=== PATIENT | female | born 1940 | race Caucasian/White ===

== ENCOUNTER 2019-09-03 15:15 | Observation (INO) | payer OTHER ==
[2019-09-03 16:16] LABS: Absolute Lymphocytes (CBC) 2.4 K/uL (0.7-4.9); Basophils % 1.1 % (0-1.3); Hematocrit 37.8 % (36.0-45.0); Lymphocytes % 31.8 % (15.3-44.8); MPV 10.1 fL (7.6-11.3); RBC Red Blood Cell Count 4.12 M/uL (3.86-4.86)
--- NOTE | 2019-09-03 16:20 | RAD REPORT ---
EXAM DESCRIPTION: RAD - Chest Single View - 09/03/2019 4:14 pm CLINICAL HISTORY: CHEST PAIN Chest pain. COMPARISON: Chest Pa And Lat (2 Views) dated 05/07/2017; Chest Single View dated 05/25/2016; Chest Pa And Lat (2 Views) dated 05/16/2016; Chest Single View dated 04/13/2016 FINDINGS: Portable technique limits examination quality. The lungs are emphysematous but grossly clear. The heart is normal in size. No displaced fractures. IMPRESSION: Mild COPD.
[2019-09-03 16:49] LABS: ALT/SGPT 16 U/L (12-78); AST/SGOT 13 U/L (15-37); Albumin 3.1 g/dL (3.4-5.0); Alkaline Phosphatase 115 U/L (45-117); BUN Blood Urea Nitrogen 32 mg/dL (7-18); Bicarbonate 24 mmol/L (21-32); Bilirubin Direct < 0.1 mg/dL (0-0.2); Bilirubin Total 0.4 mg/dL (0.2-1.0); Glucose Level 303 mg/dL (74-106); NT PRO-BNP 1443 pg/mL (<450); Potassium 4.4 mmol/L (3.5-5.1); Protein, Total 7.5 g/dL (6.4-8.2); Sodium Level 136 mmol/L (136-145); Troponin (Emerg Dept Use Only) < 0.02 ng/mL (0.0-0.045)
[2019-09-03 16:51] LABS: Magnesium 1.2 mg/dL (1.8-2.4)
[2019-09-03] MEDS ORDERED: Magnesium Sulfate 2gm IVPB 2 G/50 ML BAG IV ONE (16:59)
[2019-09-03] MEDS ORDERED: NA CHLORIDE 0.9% 500 ML ONE (17:00)
--- NOTE | 2019-09-03 17:11 | ER ---
Nurse's Notes [facility] Name: Carlita Villalobos Age: 78 yrs Sex: Female : 1940 Arrival Date: 09/03/2019 Time: 15:17 Bed 7 Private MD: BILL ARCE Diagnosis: Chest pain, unspecified;Hypomagnesemia;Dehydration Presentation: 09/03 15:20 Presenting complaint: Upper back pain x 1 week, intermittent substernal chest pain that hb began at 0230 today. Denies SOB/cough. Hx of AFib, DM2, hypertension. Transition of care: patient was not received from another setting of care. Onset of symptoms was September 03, 2019. Risk Assessment: Do you want to hurt yourself or someone else? Patient reports no desire to harm self or others. Care prior to arrival: None. 15:20 Method Of Arrival: Ambulatory hb 15:20 Acuity: PARESH 3 hb 16:00 Initial Sepsis Screen: Does the patient meet any 2 criteria? No. Patient's initial jl7 sepsis screen is negative. Does the patient have a suspected source of infection? No. Patient's initial sepsis screen is negative. Historical: - Allergies: 15:22 Sulfa (Sulfonamide Antibiotics); hb - Home Meds: 15:22 Levemir 100 unit/mL subcutaneous soln [Active]; levothyroxine 75 mcg tab once daily hb [Active]; metformin 1,000 mg Oral tab 2 times per day [Active]; metoprolol tartrate 50 mg Oral tab [Active]; - PMHx: 15:22 Atrial Fib; Diabetes - IDDM; Hypertension; Hypothyroidism; hb - PSHx: 15:22 Bladder suspension; Hysterectomy; fibroid tumors benign to arm; Tonsillectomy; nodule hb removed from thyroid; - Immunization history:: Adult Immunizations up to date. - Social history:: Smoking status: Patient/guardian denies using tobacco. - Ebola Screening: : No symptoms or risks identified at this time. Screenin:54 Abuse screen: Denies threats or abuse. Denies injuries from another. Nutritional jl7 screening: No deficits noted. Tuberculosis screening: No symptoms or risk factors identified. Fall Risk IV access (20 points). Total Reddy Fall Scale indicates No Risk (0-24 pts). Assessment: 15:30 Reassessment: Cardiac workup ordered per Dr. Sal. jl7 15:35 General: Appears in no apparent distress. uncomfortable, Behavior is calm, cooperative, jl7 appropriate for age. Pain: Complains of pain in mid-sternal area Pain does not radiate. Pain currently is 0 out of 10 on a pain scale. at worst was 8 out of 10 on a pain scale. Quality of pain is described as pressure, Pain began 0230 Is intermittent. Neuro: Level of Consciousness is awake, alert, obeys commands, Oriented to person, place, time, situation. Cardiovascular: Heart tones S1 S2 present Patient's skin is warm and dry. Respiratory: Airway is patent Respiratory effort is even, unlabored, Respiratory pattern is regular, symmetrical, Breath sounds are clear bilaterally. Denies shortness of breath. GI: Patient currently denies nausea. : No signs and/or symptoms were reported regarding the genitourinary system. EENT: No signs and/or symptoms were reported regarding the EENT system. Derm: Skin is pink, warm \T\ dry. Musculoskeletal: No signs and/or symptoms reported regarding the musculoskeletal system. 16:30 Reassessment: Patient appears in no apparent distress at this time. No changes from 7 previously documented assessment. Patient and/or family updated on plan of care and expected duration. Pain level reassessed. Patient is alert, oriented x 3, equal unlabored respirations, skin warm/dry/pink. 17:30 Reassessment: Patient appears in no apparent distress at this time. No changes from 7 previously documented assessment. Patient and/or family updated on plan of care and expected duration. Pain level reassessed. Patient is alert, oriented x 3, equal unlabored respirations, skin warm/dry/pink. 18:38 Reassessment: BP 196/77, HR 63, O2 96%, Dr. Pickard aware, VO for 25 mg Metoprolol PO. jl7 Vital Signs: 15:22 BP 163 / 78; Pulse 70; Resp 16; Temp 98.2; Pulse Ox 95% on R/A; Weight 58.97 kg; Height hb 5 ft. 4 in. (162.56 cm); Pain 7/10; 16:49 BP 150 / 74; Pulse 64; Resp 14; Temp 98.3(TE); Pulse Ox 95% on R/A; mh5 17:51 BP 172 / 84; Pulse 64; Resp 13; Temp 97.8(TE); Pulse Ox 98% on R/A; mh5 18:36 BP 196 / 77; Pulse 63; Resp 16 S; Pulse Ox 96% on R/A; jl7 19:20 BP 180 / 76; Pulse 70; Resp 20; Pulse Ox 96% on R/A; tl1 15:22 Body Mass Index 22.31 (58.97 kg, 162.56 cm) hb ED Course: 15:17 Patient arrived in ED. ag5 15:17 BILL ARCE is Private Physician. ag5 15:21 Triage completed. hb 15:22 Arm band placed on. hb 15:24 Sarah Treadwell, RN is Primary Nurse. jl7 15:30 Patient has correct armband on for positive identification. Placed in gown. Bed in low jl7 position. Call light in reach. Side rails up X 1. alarm security or surveillance monitor on. Pulse ox on. NIBP on. Warm blanket given. 15:33 Abhi Petersen PA is PHCP. [facility] 15:33 Josr Sal MD is Attending Physician. [facility] 15:48 EKG done, by gastroenterology technician. reviewed by Abhi SALGUERO. 3 15:50 Initial lab(s) drawn, by az, sent to lab. Inserted saline lock: 20 gauge in right jl7 forearm, using aseptic technique. Blood collected. Patient maintains SpO2 saturation greater than 95% on room air. 16:15 XRAY Chest (1 view) In Process Unspecified. EDMS 16:50 Notified Nurse Practitioner and/or Physician Finance Executive of a critical lab result(s), mg ss 1.2. 17:10 Pancho Pickard DO is Hospitalizing Provider. [facility] 18:29 No provider procedures requiring assistance completed. Patient admitted, IV remains in jl7 place. intact, No redness/swelling at site. Administered Medications: 17:00 Drug: NS 0.9% 500 ml Route: IV; Rate: bolus; Site: right forearm; jl7 17:45 Follow up: Response: No adverse reaction; IV Status: Completed infusion; IV Intake: jl7 500ml 17:05 Drug: Magnesium Sulfate 2 grams Route: IVPB; Infused Over: 2 hrs; Site: right forearm; jl7 18:45 Follow up: IV Status: Completed infusion; IV Intake: 50ml 1 18:01 Drug: Aspirin Chewable Tablet 324 mg Route: PO; jl7 18:28 Follow up: Response: No adverse reaction jl7 Intake: 17:45 IV: 500ml; Total: 500ml. jl7 18:45 IV: 50ml; Total: 550ml. 1 Outcome: 17:11 Decision to Hospitalize by Provider. yudith 19:57 Admitted to Tele accompanied by tech, via wheelchair, with chart, Report called to tl1 Danielle BECK 19:57 Condition: stable 19:57 Instructed on the need for admit. 20:26 Patient left the ED. [facility] Signatures: Dispatcher [employer] EDMS Abhi Petersen PA PA jmm Smirch, Shelby, RN RN Lakshmi Del Valle RN RN tl1 Mabel Alvarado RN RN hb Martinez, Maria [facility] Sarah Treadwell RN RN jl7 Batsheva Alba [facility] Sadi Guerrero [facility]
--- NOTE | 2019-09-03 17:11 | EDPHYS ---
Physician Documentation [facility] Name: Carlita Villalobos Age: 78 yrs Sex: Female : 1940 Arrival Date: 09/03/2019 Time: 15:17 Bed 7 Private MD: BILL ARCE ED Physician Josr Sal HPI: 09/03 15:35 This 78 yrs old Female presents to ER via Ambulatory with complaints of Chest jm Pain. 15:35 The patient or guardian reports chest pain that is located primarily in the substernal [facility] area. Onset: gradually, at 02:30. The pain does not radiate. Associated signs and symptoms: Pertinent negatives: abdominal pain, cough, lower extremity swelling, shortness of breath. The chest pain is described as a pressure. Modifying factors: The symptoms are alleviated by nothing. the symptoms are aggravated by nothing. This is a 78 year old female with a history of atrial fibrillation, DM, HTN, hypothyroidism that presents to the ED with complaints of substernal chest pain which began this morning at 0230. Pain is intermittent and described as pressure. Pain will last for a few seconds and then resolve. Most recent stress test was 2 years ago. . Historical: - Allergies: 15:22 Sulfa (Sulfonamide Antibiotics); hb - Home Meds: 15:22 Levemir 100 unit/mL subcutaneous soln [Active]; levothyroxine 75 mcg tab once daily hb [Active]; metformin 1,000 mg Oral tab 2 times per day [Active]; metoprolol tartrate 50 mg Oral tab [Active]; - PMHx: 15:22 Atrial Fib; Diabetes - IDDM; Hypertension; Hypothyroidism; hb - PSHx: 15:22 Bladder suspension; Hysterectomy; fibroid tumors benign to arm; Tonsillectomy; nodule hb removed from thyroid; - Immunization history:: Adult Immunizations up to date. - Social history:: Smoking status: Patient/guardian denies using tobacco. - Ebola Screening: : No symptoms or risks identified at this time. ROS: 15:35 Constitutional: Negative for fever, chills, and weight loss. jmm 15:35 Respiratory: Negative for shortness of breath, cough, wheezing, and pleuritic chest pain, Abdomen/GI: Negative for abdominal pain, nausea, vomiting, diarrhea, and constipation, MS/Extremity: Negative for injury and deformity. 15:35 Cardiovascular: Positive for chest pain. 15:35 All other systems are negative. Exam: 15:35 Constitutional: This is a well developed, well nourished patient who is awake, alert, jmm and in no acute distress. Head/Face: atraumatic. Eyes: EOMI, no conjunctival erythema appreciated ENT: Moist Mucus Membranes Neck: Trachea midline, Supple Chest/axilla: Normal chest wall appearance and motion. Cardiovascular: Regular rate and rhythm. No edema appreciated Respiratory: Normal respirations, no respiratory distress appreciated Abdomen/GI: Non distended, soft Back: Normal ROM Skin: General appearance color normal MS/ Extremity: Moves all extremities, no obvious deformities appreciated, no edema noted to the lower extremities Neuro: Awake and alert, normal gait Psych: Behavior is normal, Mood is normal, Patient is cooperative and pleasant 15:36 ECG was reviewed by the Attending Physician. [facility] Vital Signs: 15:22 BP 163 / 78; Pulse 70; Resp 16; Temp 98.2; Pulse Ox 95% on R/A; Weight 58.97 kg; Height hb 5 ft. 4 in. (162.56 cm); Pain 7/10; 16:49 BP 150 / 74; Pulse 64; Resp 14; Temp 98.3(TE); Pulse Ox 95% on R/A; mh5 17:51 BP 172 / 84; Pulse 64; Resp 13; Temp 97.8(TE); Pulse Ox 98% on R/A; mh5 18:36 BP 196 / 77; Pulse 63; Resp 16 S; Pulse Ox 96% on R/A; jl7 19:20 BP 180 / 76; Pulse 70; Resp 20; Pulse Ox 96% on R/A; tl1 15:22 Body Mass Index 22.31 (58.97 kg, 162.56 cm) hb MDM: 15:35 Patient medically screened. [facility] 17:09 The patient was given aspirin in the Emergency Department. Data reviewed: vital signs, [facility] lab test result(s), EKG, radiologic studies, plain films. ED course: I discussed results with the patient. Dr. Pickard accepted admission. . 09/03 15:34 Order name: Basic Metabolic Panel; Complete Time: 16:57 jl7 09/03 15:34 Order name: CBC with Diff; Complete Time: 16:27 jl7 10/23 15:34 Order name: LFT's; Complete Time: 16:57 09/03 15:34 Order name: Magnesium; Complete Time: 16:57 09/03 15:34 Order name: NT PRO-BNP; Complete Time: 16:57 09/03 15:34 Order name: PT-INR; Complete Time: 16:30 09/03 15:25 Order name: EKG; Complete Time: 15:26 09/03 15:25 Order name: EKG - Nurse/Tech; Complete Time: 16:03 09/03 15:34 Order name: Troponin (emerg Dept Use Only); Complete Time: 16:57 09/03 15:34 Order name: XRAY Chest (1 view); Complete Time: 16:27 09/03 15:34 Order name: Cardiac monitoring; Complete Time: 16:03 09/03 15:34 Order name: IV Saline Lock; Complete Time: 16:03 09/03 15:34 Order name: Labs collected and sent; Complete Time: 16:03 09/03 15:34 Order name: O2 Per Protocol; Complete Time: 16:03 09/03 15:34 Order name: O2 Sat Monitoring; Complete Time: 16:03 EC:36 Rate is 67 beats/min. Rhythm is regular. QRS [place] is Normal. NM interval is normal. QRS jmm interval is normal. QT interval is normal. T waves are Peaked in leads V2, V3, V4. No ST changes noted. Reviewed by me. Administered Medications: 17:00 Drug: NS 0.9% 500 ml Route: IV; Rate: bolus; Site: right forearm; jl7 17:45 Follow up: Response: No adverse reaction; IV Status: Completed infusion; IV Intake: jl7 500ml 17:05 Drug: Magnesium Sulfate 2 grams Route: IVPB; Infused Over: 2 hrs; Site: right forearm; jl7 18:45 Follow up: IV Status: Completed infusion; IV Intake: 50ml tl1 18:01 Drug: Aspirin Chewable Tablet 324 mg Route: PO; jl7 18:28 Follow up: Response: No adverse reaction jl7 Disposition: 09/04 09:13 Co-signature as Attending Physician, Josr Sal MD I agree with the assessment and [facility] plan of care. Disposition: 09/03/19 17:11 Hospitalization ordered by Pancho Pickard for Observation. Preliminary diagnosis are Chest pain, unspecified, Hypomagnesemia, Dehydration. - Bed requested for Telemetry/MedSurg (observation). - Status is Observation. tl1 - Condition is Stable. - Problem is new. - Symptoms have improved. UTI on Admission? No Signatures: Dispatcher [employer] EDIL Josr Sal MD MD [facility] Abhi Petersen PA PA carenm Violet Michele RN RN ss Lakshmi Del Valle RN RN tl1 Mabel Alvarado, RN RN Sarah Treadwell RN RN jl7 Corrections: (The following items were deleted from the chart) 09/03 18:11 17:11 Hospitalization Ordered by Pancho Pickard DO for Observation. Preliminary ss diagnosis is Chest pain, unspecified; Hypomagnesemia; Dehydration. Bed requested for Telemetry/MedSurg (observation). Status is Observation. Condition is Stable. Problem is new. Symptoms have improved. UTI on Admission? No. [facility] 20:26 18:11 09/03/2019 17:11 Hospitalization Ordered by Pancho Pickard DO for Observation. tl1 Preliminary diagnosis is Chest pain, unspecified; Hypomagnesemia; Dehydration. Bed requested for Telemetry/MedSurg (observation). Status is Observation. Condition is Stable. Problem is new. Symptoms have improved. UTI on Admission? No. ss
--- NOTE | 2019-09-03 17:38 | P.HP ---
Certification for Inpatient Patient admitted to: Observation With expected LOS: <2 Midnights Patient will require the following post-hospital care: None Practitioner: I am a practitioner with admitting privileges, knowledge of patient current condition, hospital course, and medical plan of care. Services: Services provided to patient in accordance with Admission requirements found in Title 42 Section 412.3 of the Code of Federal Regulations Patient History Date of Service: 09/03/19 Primary Care Provider: Dr. Diaz; Cardiology-Dr. Lombardi Reason for admission: Chest pain History of Present Illness: 78-year-old female with history of atrial fibrillation, diabetes mellitus insulin-dependent, hypertension and hypothyroidism. Patient presented with chest pain. Patient reports chest pain over the past 2 weeks. Today the chest pain was more frequent. She rated the pain about a 7/10. It was mainly to the substernal region. It fell like a cramp. It lasted a couple seconds. She denied any nausea, vomiting, shortness of breath or palpitation. No radiation of pain was noted. She came to the ER for further evaluation. In the ER EKG shows no significant ST changes. Blood pressure was slightly elevated at 170 2/84. Chest x-ray shows no pneumonia. Initial troponin unremarkable. Magnesium low at 1.2. Hemoglobin 12.6, white count 7.5. Sodium 136. Potassium 4.4. BUN of 32, creatinine 1.68 with a GFR of 29. Glucose 303. The patient was admitted for further evaluation. When I saw the patient in the ER, she appeared stable. Chest pain had resolved. Patient reports seen by Cardiology is now patient. Reports last stress test was about 2 years ago. Patient admits taking some ibuprofen as needed for recent back pain. She denies history of tobacco or alcohol use. Allergies Sulfa (Sulfonamide Antibiotics) Allergy (Intermediate, Verified 04/23/17 07:42) Nausea/Vomiting Home medications list reviewed: Yes Home Medications: Levothyroxine [Synthroid*] 0.075 mg PO [id number] tab 05/28/16 Insulin Detemir [Levemir*] 15 units SQ DAILY 02/01/17 Metformin HCl [Glucophage] 1,000 mg PO DAILY 02/01/17 Ethambutol HCl [Myambutol] 400 mg PO DAILY 04/19/17 Metoprolol Tartrate [Lopressor*] 25 mg PO BID 04/19/17 - Past Medical/Surgical History Diabetic: Yes -: Diabetes mellitus type 2 insulin-dependent -: Hypothyroidism -: Atrial fibrillation not on chronic anti coagulation therapy -: COPD -: HTN -: History of MAC pulmonary infection -: Back surgery -: Hysterectomy -: Bladder suspension -: Benign tumor removed from right arm -: Tonsillectomy -: Thyroid nodule removed with some thyroid Psychosocial/ Personal History: , 4-children, She does not work. - Family History Father -: Heart disease, Diabetes Notes: Sister -: Diabetes Mother -: Diabetes Brother -: Diabetes - Social History Smoking Status: Never smoker Alcohol use: No CD- Drugs: No Caffeine use: Yes Place of Residence: Home Review of Systems General: As per HPI Eyes: Unremarkable ENT: Unremarkable Respiratory: Unremarkable Cardiovascular: Chest Pain, As per HPI Gastrointestinal: Unremarkable Genitourinary: Unremarkable Musculoskeletal: Unremarkable Integumentary: Unremarkable Neurological: Unremarkable Lymphatics: Unremarkable Physical Examination - Physical Exam General: Alert, In no apparent distress, Oriented x3, Cooperative HEENT: Atraumatic, Normocephalic, PERRLA, Mucous membr. moist/pink Neck: Supple Respiratory: Clear to auscultation bilaterally, Normal air movement Cardiovascular: Normal pulses, Regular rate/rhythm Gastrointestinal: Normal bowel sounds, Soft and benign, Non-distended, No tenderness, No masses, No rebound, No guarding Musculoskeletal: No erythema, No tenderness, No warmth Integumentary: No tenderness/swelling, No erythema, No warmth, No cyanosis Neurological: Normal speech, Normal strength at 5/5 x4 extr, Normal tone, Normal affect - Studies Laboratory Data (last 24 hrs) 09/03/19 15:45: PT 11.8, INR 1.00 09/03/19 15:45: WBC 7.5, Hgb 12.6, Hct 37.8, Plt Count 232 09/03/19 15:45: Sodium 136, Potassium 4.4, BUN 32 H, Creatinine 1.68 H, Glucose 303 H, Magnesium 1.2 L*, Total Bilirubin 0.4, AST 13 L, ALT 16, Alkaline Phosphatase 115 Assessment and Plan - Plan Impression: Chest pain Acute renal injury likely related to medication Chronic atrial fibrillation not on chronic anti coagulation therapy Diabetes mellitus type 2, insulin-dependent with hyperglycemia Hypertension GERD Hypothyroidism Plan: Chest pain: Patient will be admitted for further evaluation. Will continue monitor the patient on telemetry and cardiac enzymes. Cardiology will be consulted for further recommendation. Will order echocardiogram and cardiac stress test to further evaluate. Will place on DVT prophylaxis-Lovenox. Will continue with aspirin, metoprolol. Will increase metoprolol for better blood pressure control. Will monitor and recheck lab closely. Obtain fasting lipid panel in the morning. Will discuss further with cardiology. Will provide IV fluids due to acute renal injury. Discontinue metformin. Anticipate discharge within the next 24 hr pending clinical improvement and cardiac evaluation. Acute renal injury likely related to medication: Renal function compromised compared to previous. Will recommend to discontinue metformin. Patient has been using some ibuprofen as needed. Will recommend no further use of nonsteroidal anti-inflammatories. Will start IV fluids and recheck lab in the morning. Anticipate improvement. May need to evaluate for chronic renal disease. Future medications will need to be renally dosed. Will monitor closely. Chronic atrial fibrillation not on chronic anti coagulation therapy: Will continue with metoprolol and aspirin. Diabetes mellitus type 2, insulin-dependent with hyperglycemia: As mentioned above will discontinue metformin due to acute renal injury. Will continue with basal insulin and provide sliding scale. Hypertension: Will increase metoprolol to twice daily. Will monitor and adjust appropriately. GERD: Will provide Pepcid. Hypothyroidism: Will check TSH and free T4. Continue with home medication levothyroxine 88 mcg daily. Discharge Plan: Home Plan to discharge in: 24 Hours - Advance Directives Does patient have a Living Will: No Does patient have a Durable POA for Healthcare: No - Code Status/Comfort Care Code Status Assessed: Yes (Patient is full code) Time Spent Managing Pts Care (In Minutes): 55
[2019-09-03] MEDS ORDERED: ASPIRIN 81 MG CHEWABLE TABLET ONE (17:50)
[2019-09-03] MEDS ORDERED: METOPROLOL TAR 25 MG TAB ONE ×2 (18:39→18:41)
[2019-09-03] MEDS ORDERED: ACETAMINOPHEN 500 MG TAB PO PRN (20:32)
[2019-09-03] MEDS ORDERED: D50W 25 GM/50 ML SYRINGE/VIAL IV PRN (20:32)
[2019-09-03] MEDS ORDERED: NITROGLYCERIN 0.4 MG/TAB SL PRN (20:32)
[2019-09-03] MEDS ORDERED: TRAMADOL HCL 50 MG TAB PO PRN (20:32)
[2019-09-03] MEDS ORDERED: NA CHLORIDE 0.9% 1,000 ML IV SCH (20:32)
[2019-09-03] MEDS ORDERED: IPRATROPIUM BROM 0.5MG/2.5ML NEB PRN (20:32)
[2019-09-03] MEDS ORDERED: GLUCAGON 1 MG/VIAL IM PRN (20:32)
[2019-09-03] MEDS ORDERED: ONDANSETRON 4 MG/2 ML VIAL IV PRN (20:32)
[2019-09-03 20:41] VITALS: BMI 22.4
[2019-09-03] MEDS ORDERED: INSULIN GLARGINE 100 UNITS/ML SQ SCH (21:00)
--- NOTE | 2019-09-03 22:09 | EKG ---
Test Date: 2019-09-03 Test Time: 15:32:07 Fixed Income Portfolio Manager: SHERRON MEASUREMENT RESULTS: Intervals: Rate: 67 IN: 150 QRSD: 80 QT: 408 QTc: 431 [place]: P: 80 IN: 150 QRS: 26 T: 104 INTERPRETIVE STATEMENTS: Normal sinus rhythm Nonspecific ST abnormality non specific T wave abnormality Abnormal ECG Compared to ECG 07/21/2016 09:25:45 ST (T wave) deviation now present T-wave abnormality now present Atrial premature complex(es) no longer present Electronically Signed On 09-03-19 22:08:50 CDT by Chino Smallwood
[2019-09-03] MEDS: METOPROLOL TAR 25 MG TAB PO SCH (22:21)
[2019-09-03] MEDS: INSULIN -REGULAR HUMAN 50 UNIT/0.5 ML ML SQ SCH (22:23)
[2019-09-03 23:49] LABS: CKMB Creatine Kinase MB 1.5 ng/mL (0.3-3.6); Creatine Phosphokinase 56 U/L (26-192); Troponin I < 0.02 ng/mL (0.0-0.045)
[2019-09-04] MEDS: NITROGLYCERIN 1 GM PKT TD SCH ×2 (02:19→09:00)
[2019-09-04 03:07] LABS: Urine Appearance CLEAR; Urine Bilirubin NEGATIVE (NEG); Urine Blood TRACE (NEG); Urine Color YELLOW; Urine Glucose 2+ (NEG); Urine Protein 2+ (NEG); Urine Specific Gravity 1.015 (1.005-1.030); Urine Urobilinogen 0.2 mg/dL (0.2-1.0); Urine pH 5.5 (5.0-7.0)
[2019-09-04 03:10] LABS: Urine Microscopic Reflex ORDER UMIC
[2019-09-04 03:17] LABS: Urine Bacteria <20 /HPF (<20); Urine Culture Reflex Order NOT NEEDED; Urine RBC <5 /HPF (NONE SEEN)
[2019-09-04 05:41] LABS: Absolute Lymphocytes (CBC) 1.8 K/uL (0.7-4.9); Basophils % 0.8 % (0-1.3); Hematocrit 35.2 % (36.0-45.0); Lymphocytes % 16.4 % (15.3-44.8); MPV 9.5 fL (7.6-11.3); RBC Red Blood Cell Count 3.86 M/uL (3.86-4.86)
[2019-09-04 06:09] LABS: BUN Blood Urea Nitrogen 29 mg/dL (7-18); Bicarbonate 27 mmol/L (21-32); CKMB Creatine Kinase MB 1.2 ng/mL (0.3-3.6); Creatine Phosphokinase 48 U/L (26-192); Glucose Level 100 mg/dL (74-106); HDL Cholesterol 54 mg/dL (40-60); LDL Cholesterol, Calculated 122 (<130); Magnesium 1.8 mg/dL (1.8-2.4); Potassium 3.9 mmol/L (3.5-5.1); Sodium Level 140 mmol/L (136-145); Troponin I < 0.02 ng/mL (0.0-0.045)
[2019-09-04] MEDS ORDERED: MAGNESIUM SULFATE 1 gm IVPB 1 GM/100 ML BAG IV ONE (06:19)
[2019-09-04] MEDS ORDERED: LEVOTHYROXINE SOD 0.088 MG TAB PO SCH (06:30)
[2019-09-04] MEDS: INSULIN -REGULAR HUMAN 50 UNIT/0.5 ML ML SQ SCH ×2 (07:30→11:54)
[2019-09-04] MEDS ORDERED: REGADENOSON 0.4 MG/5 ML SYR IV ONE (08:10)
[2019-09-04] MEDS ORDERED: NITROGLYCERIN 1 GM PKT TD SCH (09:00)
[2019-09-04] MEDS ORDERED: ENOXAPARIN 30 MG/0.3 ML SQ SCH (09:00)
[2019-09-04] MEDS: ASPIRIN EC 81 MG TAB PO SCH ×2 (09:00→10:37)
[2019-09-04] MEDS: FAMOTIDINE 20 MG TAB PO SCH ×2 (09:00→10:40)
[2019-09-04] MEDS: METOPROLOL TAR 25 MG TAB PO SCH (10:37)
--- NOTE | 2019-09-04 10:42 | RAD REPORT ---
EXAM DESCRIPTION: NM - Rest Stress Cardiac Imaging - 09/04/2019 10:30 am CLINICAL HISTORY: CHEST PAIN, HX HTN/A FIB/DM Chest pain. COMPARISON: No comparisons TECHNIQUE: The patient was administered approximately 10mCi of Tc 99m Sestamibi prior to resting SPE CT imaging of the heart. The patient was then administered approximately 30 mCi of Tc 99m Sestamibi f ollowing exercise or pharmacologic stress. Multiplanar SPECT images were reviewed. FINDINGS: No stress induced ischemic defect is seen to suggest stress induced ischemia. No fixed def ect is seen to suggest hibernating myocardium or scarred myocardium. The end diastolic volume is 57 ml, the end systolic volume is 17 ml, and the ejection fraction is 70 %. IMPRESSION: No stress induced ischemia.
[2019-09-04] MEDS ORDERED: POTASSIUM CL SA 10 MEQ TAB PO ONE (11:00)
--- NOTE | 2019-09-04 11:50 | P.DS ---
Admission Date: 09/03/19 Discharge Date: 09/04/19 Primary Care Provider: Dr. Diaz; Cardiology-Dr. Lombardi Disposition: ROUTINE DISCHARGE Discharge Condition: GOOD Reason for Admission: Chest pain Consultations: Cardiology-Dr. Lombardi Procedures: CXR: FINDINGS: Portable technique limits examination quality. The lungs are emphysematous but grossly clear. The heart is normal in size. No displaced fractures. IMPRESSION: Mild COPD. Cardiac Stress Test: FINDINGS: No stress induced ischemic defect is seen to suggest stress induced ischemia. No fixed defect is seen to suggest hibernating myocardium or scarred myocardium. The end diastolic volume is 57 ml, the end systolic volume is 17 ml, and the ejection fraction is 70 %. IMPRESSION: No stress induced ischemia. Medical problem list: Chest pain Acute renal injury likely related to medication-metformin Chronic atrial fibrillation not on chronic anti coagulation therapy Diabetes mellitus type 2, insulin-dependent with hyperglycemia Hypertension GERD Hypothyroidism Brief History of Present Illness: 78-year-old female with history of atrial fibrillation, diabetes mellitus insulin-dependent, hypertension and hypothyroidism. Patient presented with chest pain. Patient reports chest pain over the past 2 weeks. Today the chest pain was more frequent. She rated the pain about a 7/10. It was mainly to the substernal region. It fell like a cramp. It lasted a couple seconds. She denied any nausea, vomiting, shortness of breath or palpitation. No radiation of pain was noted. She came to the ER for further evaluation. In the ER EKG shows no significant ST changes. Blood pressure was slightly elevated at 172/84. Chest x-ray shows no pneumonia. Initial troponin unremarkable. Magnesium low at 1.2. Hemoglobin 12.6, white count 7.5. Sodium 136. Potassium 4.4. BUN of 32, creatinine 1.68 with a GFR of 29. Glucose 303. The patient was admitted for further evaluation. When I saw the patient in the ER, she appeared stable. Chest pain had resolved. Patient reports seen by Cardiology is now patient. Reports last stress test was about 2 years ago. Patient admits taking some ibuprofen as needed for recent back pain. She denies history of tobacco or alcohol use. Hospital Course: Patient presented with chest pain. Patient was admitted for further evaluation. Cardiology was consulted. Cardiac enzymes unremarkable x3. Cardiology recommended cardiac stress test. Cardiac stress test showed no stress-induced ischemia. At discharge patient will continue with aspirin 81 mg daily. Recommend follow up with cardiology in 1-2 weeks to follow up this hospital visit. Chest pain may be related to GERD. At discharge patient will continue with Pepcid 20 mg 1 pill twice daily. Recommend GI outpatient evaluation to further evaluate. Patient may benefit with EGD to further address. Patient also found to have acute renal injury likely related to medication- metformin. Patient also had been using some ibuprofen as needed. Metformin was discontinued. Patient was given IV fluids with improvement. It had been recommended in the past to discontinue metformin. At discharge will recommend to discontinue metformin. Will recommend no further use of nonsteroidal anti- inflammatories. Recommend to recheck lab-BMP in 1-2 weeks to monitor her progress. Future medications will need to be renally dose. Follow up with her PCP to further address. Patient with diabetes mellitus type 2 insulin dependent with hyperglycemia. As recommended above will discontinue metformin at discharge. Patient may continue with Levemir 16 units subcu daily. Recommend to monitor blood sugars at least twice daily. Recommend blood sugars to be less than 140 fasting and less than 200 after meals. Further adjustment may be required. This can be done with the help of her PCP. Patient with hypertension. Blood pressure was slightly elevated. Medication was adjusted. At discharge she will continue with metoprolol XL 25 mg 1 pill twice daily. Recommend to maintain blood pressures less 150/80. Further adjustment can be done by her PCP or cardiology. Patient with hypothyroidism. Tsh and free T4 within normal range. At discharge she will continue with levothyroxine 88 mcg daily. Patient with underlying chronic atrial fibrillation not on chronic anti coagulation therapy. As mentioned above metoprolol XL will be increased to 25 mg 1 pill twice daily. Will recommend to continue with aspirin 81 mg daily. Recommend follow up with cardiology to further monitor. Vital Signs/Physical Exam: Temp Pulse Resp BP Pulse Ox 97.2 F 63 16 155/70 H 94 09/04/19 08:00 09/04/19 10:37 09/04/19 08:00 09/04/19 10:37 09/04/19 08:00 General: Alert, In no apparent distress, Oriented x3, Cooperative HEENT: Atraumatic Neck: Supple Respiratory: Clear to auscultation bilaterally, Normal air movement Cardiovascular: Normal pulses, Regular rate/rhythm Gastrointestinal: Normal bowel sounds, Soft and benign, Non-distended, No tenderness, No masses, No rebound, No guarding Musculoskeletal: No erythema, No tenderness, No warmth Integumentary: No tenderness/swelling, No erythema, No warmth, No cyanosis Neurological: Normal speech, Normal strength at 5/5 x4 extr, Normal tone, Normal affect Laboratory Data at Discharge: WBC 11.0 K/uL (4.3-10.9) H D 09/04/19 05:18 Hgb 12.0 g/dL (12.0-15.0) 09/04/19 05:18 Hct 35.2 % (36.0-45.0) L 09/04/19 05:18 Plt Count 210 K/uL (152-406) 09/04/19 05:18 PT 11.8 SECONDS (9.5-12.5) 09/03/19 15:45 INR 1.00 09/03/19 15:45 Sodium 140 mmol/L (136-145) 09/04/19 05:18 Potassium 3.9 mmol/L (3.5-5.1) 09/04/19 05:18 BUN 29 mg/dL (7-18) H 09/04/19 05:18 Creatinine 1.29 mg/dL (0.55-1.3) 09/04/19 05:18 Glucose 100 mg/dL (74-106) 09/04/19 05:18 Magnesium 1.8 mg/dL (1.8-2.4) D 09/04/19 05:18 Total Bilirubin 0.4 mg/dL (0.2-1.0) 09/03/19 15:45 AST 13 U/L (15-37) L 09/03/19 15:45 ALT 16 U/L (12-78) 09/03/19 15:45 Alkaline Phosphatase 115 U/L (45-117) 09/03/19 15:45 Troponin I < 0.02 ng/mL (0.0-0.045) 09/04/19 05:18 Triglycerides 117 mg/dL (<150) 09/04/19 05:18 Cholesterol 199 mg/dL (<200) 09/04/19 05:18 HDL Cholesterol 54 mg/dL (40-60) 09/04/19 05:18 Cholesterol/HDL Ratio 3.69 10/24/19 05:18 Home Medications: Aspirin [Aspirin EC 81 MG] 81 mg PO DAILY #90 tablet. 09/04/19 Atorvastatin Calcium [Lipitor] 10 mg PO BEDTIME #30 tab 09/04/19 Famotidine [Pepcid*] 20 mg PO BID #60 tab 09/04/19 Insulin Detemir [Levemir] 16 units SQ BEDTIME 09/04/19 Levothyroxine [Synthroid*] 88 mcg PO [id number] 09/04/19 Metoprolol Succinate [Toprol Xl*] 25 mg PO BID #60 tab 09/04/19 New Medications: Aspirin [Aspirin EC 81 MG] 81 mg PO DAILY #90 tablet. Atorvastatin Calcium [Lipitor] 10 mg PO BEDTIME #30 tab Famotidine [Pepcid*] 20 mg PO BID #60 tab Metoprolol Succinate [Toprol Xl*] 25 mg PO BID #60 tab Patient Discharge Instructions: 1. Recommend follow up with her PCP in 1 week to follow up this hospitalization. 2. Patient presented with chest pain. Patient was admitted for further evaluation. Cardiology was consulted. Cardiac enzymes unremarkable x3. Cardiology recommended cardiac stress test. Cardiac stress test showed no stress-induced ischemia. At discharge patient will continue with aspirin 81 mg daily. Recommend follow up with cardiology in 1-2 weeks to follow up this hospital visit. 3. Chest pain may be related to GERD. At discharge patient will continue with Pepcid 20 mg 1 pill twice daily. Recommend GI outpatient evaluation to further evaluate. Patient may benefit with EGD to further address. 4. Patient also found to have acute renal injury likely related to medication-metformin. Patient also had been using some ibuprofen as needed. Metformin was discontinued. Patient was given IV fluids with improvement. It had been recommended in the past to discontinue metformin. At discharge will recommend to discontinue metformin. Will recommend no further use of nonsteroidal anti-inflammatories. Recommend to recheck lab-BMP in 1-2 weeks to monitor her progress. Future medications will need to be renally dose. Follow up with her PCP to further address. 5. Patient with diabetes mellitus type 2 insulin dependent with hyperglycemia. As recommended above will discontinue metformin at discharge. Patient may continue with Levemir 16 units subcu daily. Recommend to monitor blood sugars at least twice daily. Recommend blood sugars to be less than 140 fasting and less than 200 after meals. Further adjustment may be required. This can be done with the help of her PCP. 6. Patient with hypertension. Blood pressure was slightly elevated. Medication was adjusted. At discharge she will continue with metoprolol XL 25 mg 1 pill twice daily. Recommend to maintain blood pressures less 150/80. Further adjustment can be done by her PCP or cardiology. 7. Patient with hypothyroidism. Tsh and free T4 within normal range. At discharge she will continue with levothyroxine 88 mcg daily. 8. Patient with underlying chronic atrial fibrillation not on chronic anti coagulation therapy. As mentioned above metoprolol XL will be increased to 25 mg 1 pill twice daily. Will recommend to continue with aspirin 81 mg daily. Recommend follow up with cardiology to further monitor. Diet: AHA Activity: Ad nel Time spent managing pt's care (in minutes): 55
[2019-09-04 12:27] VITALS: O2SAT 93
[2019-09-04 13:44] VITALS: BP 182/83; TEMP 97
--- NOTE | 2019-09-04 13:57 | ECHO ---
HEIGHT: 5 ft 4 in WEIGHT: 130 lb 8 oz DATE OF STUDY: 09/04/[address]: Pancho Pickard DO 2-DIMENSIONAL: YES M.MODE: YES DOPPLER: YES COLOR FLOW: YES TDS: NO PORTABLE: NO DEFINITY: NO BUBBLE STUDY: NO DIAGNOSIS: CHEST PAIN. HISTORY OF HYPERTENSION AND ATRIAL FIBRILLATION CARDIAC HISTORY: CATHERIZATION: YES SURGERY: NO PROSTHETIC VALVE: NO PACEMAKER: NO MEASUREMENTS (cm) DIASTOLIC (NORMALS) SYSTOLIC (NORMALS) IVSd 0.9 (0.6-1.2) LA Diam 2.3 (1.9-4.0) LVEF 75% LVIDd 3.3 (3.5-5.7) LVIDs 1.9 (2.0-3.5) %FS 43% LVPWd 1.0 (0.6-1.2) Ao Diam 2.3 (2.0-3.7) 2 DIMENSIONAL ASSESSMENT: RIGHT ATRIUM: NORMAL LEFT ATRIUM: NORMAL RIGHT VENTRICLE: NORMAL LEFT VENTRICLE: NORMAL TRICUSPID VALVE: NORMAL MITRAL VALVE: NORMAL PULMONIC VALVE: NORMAL AORTIC VALVE: NORMAL PERICARDIAL EFFUSION: NONE AORTIC ROOT: NORMAL LEFT VENTRICULAR WALL MOTION: NORMAL DOPPLER/COLOR FLOW: NORMAL COMMENTS: NORMAL 2D ECHOCARDIOGRAM WITH DOPPLER. NO WALL MOTION ABNORMALITY. NO EFFUSION. TECHNOLOGIST: Ruben CHIU
--- NOTE | 2019-09-04 14:05 | TREADPHA ---
DX: CHEST PAIN Date of Study: 09/04/2019 Ht: 5 4 Wt: 130 lb 8 oz Consulting Physician: ROSI MEDICATIONS: TYLENOL, ASPIRIN, DEXTROSE, LOVENOX, GLUCAGEN, LANTUS, NOVOLIN-R, LOPRESSOR HISTORY: 78 YEAR OLD FEMALE WITH COMPLAINTS OF CHEST PAIN. HISTORY OF ATRIAL FIBRILLATION, DIABETES, HYPERTENSION, HYPOTHYROIDISM, NON SMOKER, NON DRINKER. PHYSICIAL EXAMINATION: RESTING B.P.: 148/79 RESTING H.R.: 58 RESTING EKG: SINUS BRADYCARDIA PROTOCOL: LEXISCAN EXERCISE TIME: 3:30 B.P. AT PEAK STRESS: 147/68 IMPRESSION: LEXISCAN INJECTED, FOLLOWED BY CARDIOLITE PER PROTOCOL. SEE NUCLEAR MEDICINE REPORT. NO SUPRAVENTRICULAR TACHYCARDIA, VENTRICULAR TACHYCARDIA, PREMATURE ATRIAL COMPLEXES OR PREMATURE VENTRICULAR COMPLEXES NOTED. PATIENT REPORTS NO CHEST PAIN.
--- NOTE | 2019-09-04 15:20 | CON ---
Date of Consultation: 09/04/2019 Reason For Consultation: Chest pain. History Of Present Illness: Ms. Villalobos is a 78-year-old woman has a history of mild cerebrovascular d isease by angiography in 2016, has a history of hypertension, diabetes, hypothyroidism as well as par oxysmal atrial fibrillation. She came in with chest pain that is intermittent that would last second s at a time without any nausea, vomiting, diaphoresis, PND, orthopnea, pedal edema, palpitations, or syncope. By the time I saw her, she has already ruled out for an [place]. Her troponin was negative. Allergies: INCLUDE SULFA. Review of Systems: Negative. Social History: Negative. Family History: Noncontributory. Medications: At home include ethambutol, insulin, thyroid, metoprolol, and metformin. Physical Examination: Vital Signs: Initial blood pressure was 196/77. Last blood pressure was 134/64. HEENT: Negative. Neck: Supple with no bruit. Chest: Clear. Cardiac: Revealed a regular rhythm and rate with S4 gallops. Abdomen: Benign. Extremities: Revealed no clubbing, cyanosis, or edema. Skin: Dry and intact. Pulses are present bilaterally symmetrically distally. Neurologic: She was nonfocal. Diagnostic Data: Glucose is 309, creatinine was 1.68. Magnesium was 1.2. BNP is 1443. COPD on keanu st x-ray. EKG is nonspecific. Impression And Plan: 1.Atypical chest pain, thought it could be related to blood pressure. The patient has multiple card iac risk factors including hypertension and diabetes, and I think an echocardiogram and Lexiscan is r easonable, I ordered these. 2.Chronic obstructive pulmonary disease. 3.Hypertension, poorly controlled. 4.Diabetes, poorly controlled. 5.Low magnesium, needs to be supplemented. 6.Elevated BNP, nonspecific. 7.Renal insufficiency, stage 3. We will monitor that. 8.Hypothyroidism. 9.Paroxysmal atrial fibrillation that was resolved. I will continue present regimen. The patient n eeds to be at least on a baby aspirin, supplement magnesium, control blood pressure, control sugar, s ee what the echocardiogram and Lexiscan show. RYAN/DULCE MARIA Voice ID: [id number] Report ID: [id number]
--- OUTSIDE RECORDS SUMMARY | 2019-09-21 08:43 | XMS REPORT ---
:1940 [facility] Address [address] [place] [address] Dr. Sims [address] [place] [id number] Care Team Providers Name Role Phone LISS LINARES Unavailable Unavailable Problems This patient has no known problems. Allergies, Adverse Reactions, Alerts This patient has no known allergies or adverse reactions. Medications This patient has no known medications. Results Test Description Test Time Test Comments Text Results Atomic Results Result Comments POCT-GLUCOSE METER 2018-12-25 08:39:00 Test Item Value Reference Range Comments POC-GLUCOSE METER (GABRIELA) (test 113 mg/dL 70-110 TESTED AT [facility] 7200 [id number]) [facility] [id number]
--- OUTSIDE RECORDS SUMMARY | 2019-09-21 08:43 | XMS REPORT | Summary of Care ---
:1940 Author Organization [facility] [place] [address] Care Team Providers Name Role Phone Norberto Diaz MD Primary Care Provider Reason for Visit Reason Comments Eye Problem Consult, Test & Treat (Routine) Status Reason Specialty Diagnoses / Referred By Referred To Procedures Contact Contact Authorized Ophth Cornea Diagnoses Return in about 6 weeks (around 06/30/2019). Norberto Diaz, Specialist / Procedures FOLLOW UP SHORT 15 MD Nick Pereira, Ophthalmology [address] [address] [place], [place] Phone: [phone] Phone: Encounter Details Date Type Department Care Team Description 07/03/2019 Office Visit [facility] Nick Ceballos, Eye Problem Ophthalmology [address] [place] [address] [place] [address] [place], [place] [id number] Allergies Active Allergy Reactions Severity Noted Date Comments Sulfa Antibiotics 10/28/2018 documented as of this encounter (statuses as of 07/03/2019) Medications Medication Sig Dispensed Refills Start Date End Date Status insulin detemir (LEVEMIR) Inject into 0 Active 100 UNIT/ML injection the skin nightly. Metoprolol Succinate 25 Take by mouth. 0 Active MG CS24 metformin (GLUCOPHAGE) Take 1,000 mg 0 Active 1000 MG tablet by mouth 2 times daily (with meals). Levothyroxine Sodium 75 Take by mouth. 0 Active MCG CAPS Sodium Chloride, Apply 1 Drop to 0 Active Hypertonic, (GUILHERME 128) 2 eye two times % SOLN daily. moxifloxacin (VIGAMOX) Place 1 Drop 3 mL 1 12/16/2018 Active 0.5 % ophthalmic solution into the right eye four times daily. difluprednate (DUREZOL) Place 1 Drop 5 mL 3 12/16/2018 Active 0.05 % ophthalmic into the right emulsion eye four times daily. fluorometholone (FML) 0.1 Place 1 Drop 10 mL 10 02/27/2019 Active % ophthalmic suspension into the right eye daily. 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 documented as of this encounter Last Filed Vital Signs Not on filedocumented in this encounter Progress Notes Nick Ceballos MD - 07/03/2019 3:30 PM CDT PROGRESS NOTE: Summary: This patient's undergone cataract surgery in the left eye back in January 2007 and in the right eyein April 2017 and we did a DMEK in the right eye on 2018. 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 We recommended a doctor Carey perform a superficial keratectomy and follow-up with Dr. Oakley. Dr. Oakley began Eylea injections. Dr. Thomas has declined to perform the corneal surgery. Currently she notes the vision still little blurry in the right eye. HPI Eye Problem In right eye. Onset was sudden. Vision is blurred, difficult to focus and distorted. Severity ismoderate. This started months ago. Occurring constantly. It is worse throughout the day. Comments Pt is here for a 6 mo S/P DMEK OD. Pt sts that VA is still blurry. Pt informed me that she has started getting retinal injections once again. Pt was switched from Avastin to Rosa injections. EyeMeds FML QD OD Last edited by Gamaliel Mayer, COA on 07/03/2019 3:41 PM. (History) IMPRESSION: #1. 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 Contact Dr. Oakley - to see if visual potential justifies superficial keratectomy OD if so will perform superficial keratectomy plus minus PTK ATTESTATIONS: I have personally interviewed and examined the patient. I have reviewed the PMH , SH, FHX, ROS, MEDS,ALLERGIES and TECH NOTE, and have updated the computerized patient record appropriately. The review of systems is negative unless documented otherwise in the medical record. In the event that there is documentation by the resident or fellow in the medical record, I agree with the resident/fellow's assessment and plan. Any exceptions are noted in my assessment & plan.The risks, benefits, and alternatives of treatment were discussed with the patient (& family, If present). All questions regarding diagnosis and treatment were answered to the patient's satisfaction.This document has been prepared with the assistance of voice recognition software. Despite proof reading, some errors may have occurred.- please forgive mis- transcriptions, mis-heard words, or errors documented in this encounter Plan of Treatment Date Type Specialty Care Team Description 12/02/2019 Office Visit Ophthalmology Nick Ceballos MD [address] [place] [address] [phone] 12/08/2019 Office Visit Ophthalmology Nick Ceballos MD [address] [place], [place] [id number] Health Maintenance Due Date Last Done Comments MEDICARE AWV 1940 TETANUS SHOT (ADULT) 1954 ANNUAL DIABETIC FOOT EXAM 1957 FALL SCREEN 2004 OSTEOPOROSIS SCREENING 2004 PNEUMOVAX >=65 (PPSV23) 2004 PREVNAR >=65 (PCV13) 2004 FLU VACCINE > 6 MONTHS 06/12/2019 ANNUAL DIABETIC RETINOPATHY 02/28/2020 02/27/2019, 01/13/2019, SCREENING 10/28/2018, Additional history exists documented as of this encounter Results Not on filedocumented in this encounter Visit Diagnoses Diagnosis History of corneal transplant - Primary Cornea replaced by transplant Corneal epithelial and basement membrane dystrophy Other anterior corneal dystrophies documented in this encounter Insurance Payer Benefit Plan / Subscriber ID Effective Dates Phone Address Type Group [employer] MED[employer]ARE PLAN HMO xxxxxxxx 2018-Present [address] Medicare - [employer] [place] [id number] documented as of this encounter
== END 2019-09-04 14:27 | disposition home or self-care (01) ==
LOC: ER 15:15 → ERHOLD 17:21 → 2ND 20:06
PROVIDERS: ADMIT Family Medicine; ATTEND Family Medicine
DX: R07.89 Other chest pain (principal); J44.9 Chronic obstructive pulmonary disease, unspecified; I10 Essential (primary) hypertension; E11.65 Type 2 diabetes mellitus with hyperglycemia; I48.0 Paroxysmal atrial fibrillation; N17.9 Acute kidney failure, unspecified; E83.42 Hypomagnesemia; E03.9 Hypothyroidism, unspecified; K21.9 Gastro-esophageal reflux disease without esophagitis
CPT/HCPCS: 96365; 93005; 93017; 93306; 85025 ×2; 80048 ×2; 36415; 83735 ×2; 82550 ×2; 85610; 80061; 82947 ×3; 80076; 84443; 84484 ×3; 82553 ×2; 84439; 83880; 71045; 78452; 99285; 96366; J1650; J3475 ×2; J2785; J7040; J7030; J2405; A9500; G0378 ×3; 81003; 81015; J1815

== ENCOUNTER 2019-12-18 09:19 | Day surgery (SDC) | payer OTHER ==
[2019-12-15 16:41] LABS: Potassium 4.9 mmol/L (3.5-5.1)
[~2019-12-18 09:19] MED LIST: LIDOCAINE 1% MPF 30 ML VIAL ONE
--- OUTSIDE RECORDS SUMMARY | 2019-12-18 09:23 | XMS REPORT ---
:1940 [facility] Address [address] [place] [address] Dr. Sims [address] [place] [address] Care Team Providers Name Role Phone LISS [...] 70-110 TESTED AT [facility] 7200 [phone]) [facility] [id number]
[2019-12-18] MEDS ORDERED: NA CHLORIDE 0.9% 1,000 ML ONE (09:40)
[2019-12-18] MEDS ORDERED: CEFAZOLIN/SWI 1gm 1 GM/10 ML SYR ONE (09:40)
[2019-12-18] MEDS ORDERED: propofoL 200 MG/20 ML VIAL IV ONE ×2 (09:59→10:27)
[2019-12-18] MEDS ORDERED: LIDOCAINE 2% MPF 5 ML VIAL ONE (09:59)
[2019-12-18] MEDS ORDERED: Mastisol Adhesive Liq ONE (10:41)
[2019-12-18] MEDS ORDERED: HYDROCODONE/APAP 7.5/325 MG TAB ONE (11:52)
[2019-12-18 13:12] VITALS: BP 152/63; TEMP 98; O2SAT 97
--- NOTE | 2019-12-18 21:30 | OP ---
Date of Procedure: 12/18/2019 Surgeon: Barrett Higgins MD Injection Maintenance Technician: MONALISA Multani. Preoperative Diagnosis: Headaches, left-sided, rule out temporal arteritis. Postoperative Diagnosis: Headaches, left-sided, rule out temporal arteritis. Procedure: Left temporal artery biopsy. Doppler rated. Estimated Blood Loss: Minimal. Specimens: Left temporal artery. Findings: As above. Anesthesia: MAC. Complications: None. Patient tolerated the procedure in stable condition, taken to Recovery in good general condition. Description Of Procedure: Patient was brought to the OR and placed in supine position. MAC anesthes ia was begun. Patient was prepped and draped in the usual sterile fashion. Lidocaine 1% was infiltr ated locally. Doppler device was used to isolate the branch of the temporal artery and then lidocain e 1% infiltrated and then 15 blade was used to make a 4 cm incision. Subcutaneous tissue was divided deep to the subcutaneous tissue. Branches of temporal artery identified, proximal and distal contro l obtained. Side branches cauterized, they were very small and then a 4 cm segment excised and sent to Pathology. 4-0 silk used to tie off both ends. Wound irrigated and bleeding controlled with caut michelle. 4-0 chromic was used to approximate the subcutaneous tissue and close the skin. Sterile dressi ng was applied. Patient was awakened and taken to Recovery in good general condition. Discharge Note: The patient will go to day surgery and home when stable. Disposition: Home. Condition: Stable. Discharge Instructions: Resume home medications and diet. Activity: As tolerated. No heavy lifting. Remove outer dressing in 2 days. Shower. Keep wound cl frederic and dry. Follow up in my office in 2 weeks, call for appointment. Tylenol No. 3 one tablet p.o. q.4 p.r.n. pain. Keep Steri-Strips on at all times. Follow up with Dr. Luong in 1 week. RAMO/DULCE MARIA Voice ID: [id number] Report ID: [id number]
== END 2019-12-18 12:45 | disposition home or self-care (01) ==
LOC: OR 09:19
PROVIDERS: ATTEND Surgery
PROC: 03BT0ZX Excision of Left Temporal Artery, Open Approach, Diagnostic (ICD-10-PCS; principal; 2019-12-18 10:30)
DX: R51 Headache (principal); I48.91 Unspecified atrial fibrillation; K21.9 Gastro-esophageal reflux disease without esophagitis; I10 Essential (primary) hypertension; E03.9 Hypothyroidism, unspecified; Z87.891 Personal history of nicotine dependence; Z88.2 Allergy status to sulfonamides; Z83.3 Family history of diabetes mellitus
CPT/HCPCS: 80048; 36415; 82947 ×2; 88305; 37609; J2704 ×2; J0690; J7030

== ENCOUNTER 2020-04-29 08:28 | Emergency (ER) | payer OTHER ==
--- NOTE | 2020-04-29 09:12 | ER ---
Nurse's Notes [facility] Name: Carlita Villalobos Age: 79 yrs Sex: Female : 1940 Arrival Date: 04/29/2020 Time: 08:29 Bed 20 Private MD: Diagnosis: Atypical facial pain;Left superior orbit pain and swelling Presentation: 04/29 09:07 Chief complaint: Patient states: Urinary frequency, burning and pain with urination x jl7 2-3 days. Coronavirus screen: Proceed with normal triage. Patient denies a cough. Patient denies shortness of breath or difficulty breathing. Patient denies measured and/or subjective temperature greater than 100.4F prior to today's visit. Patient denies travel on a cruise ship or to a country the [facility] currently lists as an affected area. Patient denies contact with known and/or suspected case of COVID-19. Ebola Screen: No symptoms or risks identified at this time. Initial Sepsis Screen: Does the patient meet any 2 criteria? No. Patient's initial sepsis screen is negative. Does the patient have a suspected source of infection? No. Patient's initial sepsis screen is negative. Risk Assessment: Do you want to hurt yourself or someone else? Patient reports no desire to harm self or others. Onset of symptoms was April 26, 2020. Care prior to arrival: None. 09:07 Method Of Arrival: Ambulatory jl7 09:07 Acuity: PARESH 3 jl7 Triage Assessment: 09:08 General: Appears in no apparent distress. uncomfortable, Behavior is calm, cooperative, jl7 appropriate for age. Pain: Denies pain. Neuro: Level of Consciousness is awake, alert, obeys commands, Oriented to person, place, time, situation, Appropriate for age. Cardiovascular: Patient's skin is warm and dry. Respiratory: Airway is patent Respiratory effort is even, unlabored, Respiratory pattern is regular, symmetrical. : Urine is cloudy, Reports burning with urination, pain with urination, urinary frequency. Derm: Skin is pink, warm \\T\\ dry. Historical: - Allergies: 08:33 Sulfa (Sulfonamide Antibiotics); aa5 - Home Meds: 09:08 Levemir 100 unit/mL subcutaneous soln [Active]; levothyroxine 75 mcg tab once daily jl7 [Active]; metformin 1,000 mg Oral tab 2 times per day [Active]; metoprolol tartrate 50 mg Oral tab [Active]; - PMHx: 08:33 Atrial Fib; Diabetes - IDDM; Hypertension; Hypothyroidism; aa5 - PSHx: 08:33 Bladder suspension; Hysterectomy; fibroid tumors benign to arm; Tonsillectomy; nodule aa5 removed from thyroid; - Immunization history:: Adult Immunizations up to date. - Social history:: Smoking status: Patient denies any tobacco usage or history of. Screenin:09 Abuse screen: Denies threats or abuse. Denies injuries from another. Nutritional jl7 screening: No deficits noted. Tuberculosis screening: No symptoms or risk factors identified. Fall Risk None identified. Assessment: 09:09 General: See triage assessment. jl7 Vital Signs: 09:07 BP 183 / 57; Pulse 65; Resp 16; Temp 97.8; Pulse Ox 94% ; jl7 09:13 BP 167 / 67; jl7 09:13 pt reports "I did not take my metoprolol this morning." jl7 ED Course: 08:29 Patient arrived in ED. as 08:32 Josr Sal MD is Attending Physician. kdr 08:55 Sarah Treadwell RN is Primary Nurse. jl7 09:08 Triage completed. jl7 09:08 Arm band placed on right wrist. jl7 09:09 Patient has correct armband on for positive identification. Bed in low position. Call jl7 light in reach. Side rails up X 1. Pulse ox on. NIBP on. 09:09 Urine collected: clean catch specimen, cloudy. jl7 09:22 No provider procedures requiring assistance completed. Patient did not have IV access jl7 during this emergency room visit. Administered Medications: 09:13 Drug: Cipro 500 mg Route: PO; jl7 09:23 Follow up: Response: No adverse reaction jl7 Outcome: 09:11 Discharge ordered by . kdr 09:22 Discharged to home ambulatory. jl7 09:22 Condition: stable 09:22 Discharge instructions given to patient, Instructed on discharge instructions, follow up and referral plans. medication usage, Demonstrated understanding of instructions, follow-up care, medications, Prescriptions given X 2. 09:22 Patient left the ED. jl7 Addendum: 05/03/2020 10:21 Addendum: Culture Results: Positive urine culture. No further action required. Bacteria s s sensitive to prescribed antibiotic. Signatures: Josr Sal MD MD kdr Martinez, Amelia as Calderon, Audri, RN RN aa5 Violet Michele RN RN ss Sarah Treadwell RN RN jl7 Corrections: (The following items were deleted from the chart) 04/29 09:14 09:13 BP 167 / 67; pt reports "I di not take my metoprolol this morning."; jl7 jl7
--- NOTE | 2020-04-29 09:12 | EDPHYS ---
Physician Documentation [facility] Name: Carlita Villalobos Age: 79 yrs Sex: Female : 1940 Arrival Date: 04/29/2020 Time: 08:29 Bed 20 Private MD: ED Physician Josr Sal HPI: 04/29 08:45 This 79 yrs old Female presents to ER via Unassigned with complaints of kdr Urinary Problem. 08:45 The patient presents with urinary symptoms, dysuria, frequency. Onset: The kdr symptoms/episode began/occurred gradually, 2 day(s) ago. Modifying factors: The symptoms are alleviated by nothing, the symptoms are aggravated by urinating. Associated signs and symptoms: Pertinent positives: urinary frequency. Severity of symptoms: At their worst the symptoms were mild, in the emergency department the symptoms are unchanged. The patient has experienced similar episodes in the past, multiple times. The patient has not recently seen a physician. Historical: - Allergies: 08:33 Sulfa (Sulfonamide Antibiotics); aa5 - Home Meds: 09:08 Levemir 100 unit/mL subcutaneous soln [Active]; levothyroxine 75 mcg tab once daily jl7 [Active]; metformin 1,000 mg Oral tab 2 times per day [Active]; metoprolol tartrate 50 mg Oral tab [Active]; - PMHx: 08:33 Atrial Fib; Diabetes - IDDM; Hypertension; Hypothyroidism; aa5 - PSHx: 08:33 Bladder suspension; Hysterectomy; fibroid tumors benign to arm; Tonsillectomy; nodule aa5 removed from thyroid; - Immunization history:: Adult Immunizations up to date. - Social history:: Smoking status: Patient denies any tobacco usage or history of. ROS: 08:45 Constitutional: Negative for fever, chills, and weight loss, Eyes: Negative for injury, kdr pain, redness, and discharge, Neck: Negative for injury, pain, and swelling, Cardiovascular: Negative for chest pain, palpitations, and edema, Respiratory: Negative for shortness of breath, cough, wheezing, and pleuritic chest pain, Abdomen/GI: Negative for abdominal pain, nausea, vomiting, diarrhea, and constipation, Back: Negative for injury and pain, MS/Extremity: Negative for injury and deformity, Skin: Negative for injury, rash, and discoloration, Neuro: Negative for headache, weakness, numbness, tingling, and seizure activity. Psych: Negative for depression, anxiety, suicide ideation, homicidal ideation, and hallucinations, Allergy/Immunology: Negative for hives, rash, and allergies, Endocrine: Negative for neck swelling, polydipsia, polyuria, polyphagia, and marked weight changes, Hematologic/Lymphatic: Negative for swollen nodes, abnormal bleeding, and unusual bruising. 08:45 Abdomen/GI: Positive for abdominal pain, very mild low abdominal discomfort typical for her prior UTI's. Exam: 08:45 Constitutional: This is a well developed, well nourished patient who is awake, alert, kdr and in no acute distress. Head/Face: Normocephalic, atraumatic. Eyes: Pupils equal round and reactive to light, extra-ocular motions intact. Lids and lashes normal. Conjunctiva and sclera are non-icteric and not injected. Cornea within normal limits. Periorbital areas with no swelling, redness, or edema. Neck: Trachea midline, no thyromegaly or masses palpated, and no cervical lymphadenopathy. Supple, full range of motion without nuchal rigidity, or vertebral point tenderness. No Meningismus. Chest/axilla: Normal chest wall appearance and motion. Nontender with no deformity. No lesions are appreciated. Cardiovascular: Regular rate and rhythm with a normal S1 and S2. No gallops, murmurs, or rubs. Normal PMI, no JVD. No pulse deficits. Respiratory: Lungs have equal breath sounds bilaterally, clear to auscultation and percussion. No rales, rhonchi or wheezes noted. No increased work of breathing, no retractions or nasal flaring. Abdomen/GI: Soft, non-tender, with normal bowel sounds. No distension or tympany. No guarding or rebound. No evidence of tenderness throughout. Back: No spinal tenderness. No costovertebral tenderness. Full range of motion. Skin: Warm, dry with normal turgor. Normal color with no rashes, no lesions, and no evidence of cellulitis. MS/ Extremity: Pulses equal, no cyanosis. Neurovascular intact. Full, normal range of motion. Neuro: Awake and alert, GCS 15, oriented to person, place, time, and situation. Cranial nerves II-XII grossly intact. Motor strength 5/5 in all extremities. Sensory grossly intact. Cerebellar exam normal. Normal gait. Psych: Awake, alert, with orientation to person, place and time. Behavior, mood, and affect are within normal limits. Vital Signs: 09:07 BP 183 / 57; Pulse 65; Resp 16; Temp 97.8; Pulse Ox 94% ; jl7 09:13 BP 167 / 67; jl7 09:13 pt reports "I did not take my metoprolol this morning." 7 MDM: 08:45 Data reviewed: vital signs, nurses notes, lab test result(s). Counseling: I had a kdr detailed discussion with the patient and/or guardian regarding: the historical points, exam findings, and any diagnostic results supporting the discharge/admit diagnosis, lab results, the need for outpatient follow up. 09:11 Patient medically screened. [facility] 04/29 08:44 Order name: Urine Culture; Complete Time: 17:15 kdr 04/29 09:09 Order name: Urine Dipstick--Ancillary (enter results); Complete Time: 17:15 bd 04/29 08:44 Order name: Urine Dipstick-Ancillary (obtain specimen); Complete Time: 09:10 [facility] Administered Medications: 09:13 Drug: Cipro 500 mg Route: PO; [facility] 09:23 Follow up: Response: No adverse reaction 7 Disposition: 04/29/20 09:11 Discharged to Home. Impression: Atypical facial pain, Left superior orbit pain and swelling. - Condition is Stable. - Discharge Instructions: Urinary Tract Infection, Adult, [id number]. - Prescriptions for Pyridium 200 mg Oral Tablet - take 1 tablet by ORAL route every 8 hours for 3 days; 9 tablet. Cipro 500 mg Oral Tablet - take 1 tablet by ORAL route every 12 hours for 7 days; 14 tablet. - Medication Reconciliation Form, Thank You Letter, Antibiotic Education form. - Follow up: Private Physician; When: 2 - 3 days; Reason: If symptoms return, Further diagnostic work-up, Recheck today's complaints, Continuance of care, Re-evaluation by your physician. - Problem is new. - Symptoms have improved. Addendum: 06/10/2020 17:16 Addendum: The appropriate diagnosis for this patient is UTI. k Signatures: Dispatcher [employer] Josr Putnam MD MD kdr Calderon, Audri, RN RN aa5 Sarah Treadwell, RN RN jl7 Corrections: (The following items were deleted from the chart) 04/29 09:22 09:11 04/29/2020 09:11 Discharged to Home. Impression: Atypical facial pain; Left jl7 superior orbit pain and swelling. Condition is Stable. Forms are Medication Reconciliation Form, Thank You Letter, Antibiotic Education, Prescription Opioid Use. Follow up: Private Physician; When: 2 - 3 days; Reason: If symptoms return, Further diagnostic work-up, Recheck today's complaints, Continuance of care, Re-evaluation by your physician. Problem is new. Symptoms have improved. kdr
[2020-04-29] MEDS ORDERED: CIPROFLOXACIN HCL 500 MG TAB ONE (09:20)
[2020-04-29 09:28] VITALS: TEMP 97.8; O2SAT 94
[2020-04-29 09:29] VITALS: BP 167/67
[2020-04-29 09:52] LABS: Urine Blood 2+ (NEG); Urine Glucose NEGATIVE (NEG); Urine Protein 3+ (NEG); Urine pH 5.5 (5.0-7.0)
--- OUTSIDE RECORDS SUMMARY | 2020-04-29 10:23 | XMS REPORT | Clinical Summary ---
:1940 Author Organization [facility] Address [address] [place] [address] Care Team Providers Name Role Phone Unavailable Primary Care Provider Unavailable Allergies Active Allergy Reactions Severity Noted Date Comments Sulfa (Sulfonamide Antibiotics) 9 Feeling of malaise Medications Medication Sig Dispensed Refills Start Date End Date Status difluprednate Apply to eye(s). 0 Active (DUREZOL) 0.05 % Drop insulin detemir Inject 0 Acti ve U-100 (LEVEMIR) 100 subcutaneously unit/mL injection nightly. levothyroxine 75 mcg Take by mouth. 0 Active Cap metFORMIN Take 1,000 mg by 0 Act maria isabel (GLUCOPHAGE) 1000 MG mouth 2 (two) times tablet daily with breakfast and dinner. metoprolol Take 25 mg by mouth 0 Active (LOPRESSOR) 25 MG 2 (two) times daily. tablet moxifloxacin 1 drop 3 (three) 0 Active (VIGAMOX) 0.5 % times daily. ophthalmic solution hypertonic 1 drop as needed. 0 A ctive ophthalmic solution (GUILHERME 128) 5 % ophthalmic solution prednisoLONE acetate 1 drop 4 (four) 0 Active (PRED FORTE) 1 % times daily. ophthalmic suspension Active Problems Not on file Social History Tobacco Use Types Packs/Day Years Used Date Former Smoker Quit: 11/12/18 67 Smokeless Tobacco: Never Used Alcohol Use Drinks/Week oz/Week Comments No Alcohol Habits Answer Date Recorded How often do you have a drink containing alcohol? Never 12/24/2018 How many drinks containing alcohol do you have on a typical Not asked day when you are drinking? How often do you have six or more drinks on one occasion? No t asked Sex Assigned at Date Recorded Not on file Job Start Date Occupation Industry Not on file Not on file Not on file Travel History Travel Start Travel End No recent travel history available. 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
--- OUTSIDE RECORDS SUMMARY | 2020-04-29 10:23 | XMS REPORT | Continuity of Care Document ---
:1940 Author Organization [facility] t Address [address] [place] [address] [address] [place] [address] Care Team Providers Name Role Phone Loyda Ceballos MD Attending Clinician Asha CEBALLOS Attending Clinician Unavailable Asha CEBALLOS Admitting Clinician Unavailable Problems This patient has no known problems. Allergies, Adverse Reactions, Alerts Allergy Allergy Status Severity Reaction(s) Onset Inactive Treating Comm ents Source Name Type Date Date Clinician Sulfa Propensi Active Feeling [facility] - mide adverse 00:00: mala[place] Medical Antibiot reaction 00 Center ics) s Social History Social Habit Start Date Stop Date Quantity Comments Source History [facility] - Alcohol Std Drinks [facility] History [facility] - Alcohol Binge Medical José Miguel ter Sex Assigned At [facility] History [facility] 2018-12-24 2018-12-[address] [facility] - Alcohol Frequency 00:00:00 00:00:00 [facility] History of tobacco 1967-11-12 Current smoker [facility] - use 00:00[facility]00 [facility] Smoking Status Start Date Stop Date Source Former smoker 2018-12-25 00:00:00 2018-12-25 00:00:[address] [facility] Medications Ordered Filled Start Stop Current Ordering Indication Dosage Frequency Signature Comments Components Source Medication Medication Date Date Medication? Clinician (SIG) Name Name prednisoLON Yes 1[drp] Q.25D [address] [facility] acetate 2-12 (four) [facility] - (PRED 12:21: times Medical FORTE) 1 % 32 daily. Center ophthalmic suspension hypertonic Yes 1[drp] [address] ophthalmic 2-12 needed. [facility] - solution 10:58: Medical (GUILHERME 128) 26 [place] 5 % ophthalmic solution diflupredna Yes Apply to I St te 2-12 eye(s). [facility] - (DUREZOL) 10:58: Medical 0.05 % Drop 25 Center insulin Yes QD Inject [facility] detemir 2-12 subcutaneo [facility] - U-100 10:58: usly Medical (LEVEMIR) 25 nightly. [place] 100 unit/mL injection levothyroxi Yes Take by [facility] ne 75 mcg 2-12 mouth. [facility] - Cap 10:58: Medical 25 [place] metFORMIN 0 Yes 1000mg Take 1,[address] (GLUCOPHAGE 2-12 mg by [facility] - ) 1000 MG 10:58: mouth 2 Medic al tablet 25 (two) Center times daily with breakfast and dinner. metoprolol Yes 25mg Q.5D Take [address] (LOPRESSOR) 2-12 by mouth 2 Mayra kes - 25 MG 10:58: (two) Medical tablet 25 times Center daily. moxifloxaci Yes 1[drp] Q.89660785 [address] [facility] n (VIGAMOX) 2-12 [id number] (three) [facility] - 0.5 % 10:58: 3D times Medical ophthalmic 25 daily. [place] solution Procedures This patient has no known procedures. Encounters Start End Encounter Admission Attending Care Care Encounter Source Date/Time Date/Time Type Type Clinicians Facility Department ID 2019-12-29 2019-12-29 MICHAEL [place] [id number] 19 13:53:04 14:03:04 Visit Nick AMBULATOR [id number] Loyda Y [id number] 2019-07-03 2019-07-03 MICHAEL [place] [id number] 88 15:11:53 15:26:53 Visit Nick AMBULATOR [id number] Loyda Y [id number] Results Test Description Test Time Test Comments Results Result Comments Source POCT-GLUCOSE METER 2018-12-25 08:39:00 Test Item Value Reference Range Interpretation Comme nts POC-GLUCOSE METER (GABRIELA) (test 113 mg/dL 70-110 H TESTED AT [facility] 7200 code = 1538) [facility] [id number]
== END 2020-04-29 09:22 | disposition home or self-care (01) ==
LOC: ER 08:28
DX: N39.0 Urinary tract infection, site not specified (principal); I10 Essential (primary) hypertension; E11.9 Type 2 diabetes mellitus without complications; E03.9 Hypothyroidism, unspecified; I48.91 Unspecified atrial fibrillation; Z79.4 Long term (current) use of insulin; Z88.2 Allergy status to sulfonamides
CPT/HCPCS: 81003; 87077; 87086; 87088; 87186; 99284

== ENCOUNTER 2020-05-30 08:40 | Emergency (ER) | payer OTHER ==
--- OUTSIDE RECORDS SUMMARY | 2020-05-30 08:42 | XMS REPORT | Clinical Summary ---
:1940 Author Organization [facility] Address [address] [place] [address] Care Team Providers Name Role Phone Unavailable [...] Not on file Implants Implanted Type Area Wound Care Rn Device Shelf Model / Identifier Expiration Serial / Date Lot Cornea Whole Cornea - [id number] Tissue Right: [employer] 01/04/2019 [id number] / Implanted: Qty: 1 on 12/25/2018 by Nick Ceballos MD Gr aft/Subs [facility] [id number] / titute N/A Results Not on fileafter 05/30/2019 Insurance Payer Benefit Plan / Subscriber ID Type Phone Address Group [employer] - MEDICARE AETNA MEDICARE HMO xxxxxxxx [address] [place] [address]
--- OUTSIDE RECORDS SUMMARY | 2020-05-30 08:43 | XMS REPORT | Continuity of Care Document ---
:1940 Author Organization [facility] t Address [address] [place] [address] [address] [place] [address] Care Team Providers Name Role Phone Loyda [...] Date Stop Date Quantity Comments Source History [facility] - Alcohol Std Drinks Medica [facility] History [facility] - Alcohol Binge Medical José Miguel ter Sex Assigned At [facility] History [facility] 2018-12-24 2018-12-[address] [facility] - Alcohol Frequency 00:00:00 00:00:00 [facility] Center History of tobacco 1967-11-12 Current smoker [facility] - use 00:00:00 [facility] Center Smoking Status Start Date Stop Date Source Former smoker 2018-12-25 00:00:00 2018-12-25 00:00:[address] [facility] [facility] Medications Ordered Filled Start Stop Current Ordering [...] - solution 10:58: Medical (GUILHERME 128) 26 [place] 5 % ophthalmic solution diflupredna Yes Apply to I St te 2-12 eye(s). [facility] - (DUREZOL) 10:58: Medical 0.05 % Drop 25 Center insulin Yes QD Inject [facility] detemir 2-12 subcutaneo [facility] - U-100 10:58: usly Medical (LEVEMIR) 25 nightly. [place] 100 unit/mL injection levothyroxi Yes Take by [facility] ne 75 mcg 2-12 mouth. [facility] - Cap 10:58: Medical 25 [place] metFORMIN 0 Yes 1000mg Take 1,[address] (GLUCOPHAGE 2-12 mg by [facility] - ) 1000 MG 10:58: mouth 2 Medic al tablet 25 (two) Center times daily with breakfast and dinner. metoprolol Yes 25mg Q.5D Take [address] (LOPRESSOR) 2-12 by mouth 2 Mayra kes - 25 MG 10:58: (two) Medical tablet 25 times Center daily. moxifloxaci Yes 1[drp] Q.[id number] [address] n (VIGAMOX) 2-12 [id number] (three) [facility] - 0.5 % 10:58: 3D times Medical ophthalmic 25 daily. [place] solution Procedures This patient has no known procedures. Encounters Start End Encounter Admission Attending Care Care Encounter Source Date/Time Date/Time Type Type Clinicians Facility Department ID 2019-12-29 2019-12-29 MICHAEL [place] [id number] 19 13:53:04 14:03:04 Visit Nick AMBULATOR [id number] Loyda Y [id number] 2019-07-03 2019-07-03 MICHAEL [place] [id number] 15:11:53 15:26:53 Visit Nick AMBULATOR [id number] Loyda Y [id number] Results Test Description Test Time Test Comments Results Result Comments Source POCT-GLUCOSE METER 2018-12-25 08:39:00 Test Item Value Reference Range Interpretation Comme nts POC-GLUCOSE METER (GABRIELA) (test 113 mg/dL 70-110 H TESTED AT [facility] 7200 code = 1538) [facility] [id number]
--- NOTE | 2020-05-30 09:21 | ER ---
Nurse's Notes [facility] Name: Carlita Villalobos Age: 79 yrs Sex: Female : 1940 Arrival Date: 05/30/2020 Time: 08:48 Bed 15 Private MD: Diagnosis: Urinary tract infection, site not specified Presentation: 05/30 09:23 Chief complaint: Patient states: Urinary frequency, burning w/ urination and suprapubic ph pain that began early this morning, denies fever N/V. Coronavirus screen: Patient denies a cough. Patient denies shortness of breath or difficulty breathing. Patient denies measured and/or subjective temperature greater than 100.4F prior to today's visit. Patient denies travel on a cruise ship or to a country the [facility] currently lists as an affected area. Patient denies contact with known and/or suspected case of COVID-19. Proceed with normal triage. Ebola Screen: No symptoms or risks identified at this time. Initial Sepsis Screen: Does the patient meet any 2 criteria? No. Patient's initial sepsis screen is negative. Does the patient have a suspected source of infection? Yes: Dysuria/Frequency/Urgency/UTI. Risk Assessment: Do you want to hurt yourself or someone else? Patient reports no desire to harm self or others. Onset of symptoms was May 30, 2020. 09:23 Method Of Arrival: Ambulatory ph 09:23 Acuity: PARESH 4 ph Historical: - Allergies: 18:54 Sulfa (Sulfonamide Antibiotics); ph - Home Meds: 18:54 Levemir 100 unit/mL subcutaneous soln [Active]; levothyroxine 75 mcg tab once daily ph [Active]; metformin 1,000 mg Oral tab 2 times per day [Active]; metoprolol tartrate 50 mg Oral tab [Active]; - PMHx: 18:54 Atrial Fib; Diabetes - IDDM; Hypertension; Hypothyroidism; ph - Immunization history:: Adult Immunizations unknown. - Family history:: not pertinent. - Social history:: Smoking status: Patient denies any tobacco usage or history of. Screenin:04 Abuse screen: Denies threats or abuse. Denies injuries from another. Nutritional ph screening: No deficits noted. Tuberculosis screening: No symptoms or risk factors identified. Fall Risk None identified. Assessment: 09:30 General: Appears in no apparent distress. comfortable, slender, well groomed, Behavior ph is calm, cooperative, appropriate for age, Denies fever, chills. Pain: Complains of pain in suprapubic area. Neuro: Level of Consciousness is awake, alert, obeys commands, Oriented to person, place, time, situation. Cardiovascular: Capillary refill < 3 seconds in bilateral fingers Patient's skin is warm and dry. Respiratory: Airway is patent Respiratory effort is even, unlabored, Respiratory pattern is regular, symmetrical. GI: Patient currently denies nausea, vomiting. : Reports burning with urination, pain in suprapubic area urinary frequency. Derm: Skin is intact, is healthy with good turgor, Skin is pink, warm \T\ dry. Musculoskeletal: Circulation, motion, and sensation intact. Range of motion: intact in all extremities. Vital Signs: 09:23 BP 178 / 89; Pulse 78; Resp 18; Temp 98.7(TE); Pulse Ox 98% on R/A; Weight 58.97 kg; ph Height 5 ft. 4 in. (162.56 cm); 09:23 Body Mass Index 22.31 (58.97 kg, 162.56 cm) ph ED Course: 08:48 Patient arrived in ED. bp1 09:02 Isaac Mcgee MD is Attending Physician. mitchell 09:04 Shonda Flanagan, KIRAN is Primary Nurse. ph 09:25 Triage completed. ph 09:30 Patient has correct armband on for positive identification. Bed in low position. Call ph light in reach. Side rails up X 1. Pulse ox on. NIBP on. Door closed. Noise minimized. Warm blanket given. 09:35 No provider procedures requiring assistance completed. Patient did not have IV access ph during this emergency room visit. 18:53 Arm band placed on. ph Administered Medications: 09:40 Drug: Cipro 500 mg Route: PO; ss 18:55 Follow up: Response: No adverse reaction; Medication administered at discharge. ph Outcome: 09:21 Discharge ordered by . mitchell 09:41 Patient left the ED. ss 09:41 Discharged to home ambulatory. ph 09:41 Condition: good 09:41 Discharge instructions given to patient, Instructed on discharge instructions, follow up and referral plans. medication usage, Demonstrated understanding of instructions, follow-up care, medications, Prescriptions given X 2. Addendum: 06/02/2020 07:37 Addendum: Culture Results: Positive urine culture. No further action required. Bacteria a a5 sensitive to prescribed antibiotic. Signatures: Isaac Mcgee MD MD cha Calderon, Audri, RN RN aa5 Violet Michele RN RN ss Shonda Flanagan RN RN Lois, Mirta [facility]
--- NOTE | 2020-05-30 09:21 | EDPHYS ---
Physician Documentation [facility] Name: Carlita Villalobos Age: 79 yrs Sex: Female : 1940 Arrival Date: 05/30/2020 Time: 08:48 Bed 15 Private MD: ED Physician Isaac Mcgee HPI: 05/30 09:15 This 79 yrs old Female presents to ER via Unassigned with complaints of mitchell Bladder Infection. 09:15 The patient presents with pelvic pain. Onset: The symptoms/episode began/occurred 2 mitchell day(s) ago. Modifying factors: The symptoms are alleviated by nothing, the symptoms are aggravated by nothing. Associated signs and symptoms: The patient has no apparent associated signs or symptoms. Severity of symptoms: At their worst the symptoms were mild, in the emergency department the symptoms are unchanged. The patient is not sexually active. The patient has experienced similar episodes in the past, several times. Historical: - Allergies: 18:54 Sulfa (Sulfonamide Antibiotics); ph - Home Meds: 18:54 Levemir 100 unit/mL subcutaneous soln [Active]; levothyroxine 75 mcg tab once daily ph [Active]; metformin 1,000 mg Oral tab 2 times per day [Active]; metoprolol tartrate 50 mg Oral tab [Active]; - PMHx: 18:54 Atrial Fib; Diabetes - IDDM; Hypertension; Hypothyroidism; ph - Immunization history:: Adult Immunizations unknown. - Family history:: not pertinent. - Social history:: Smoking status: Patient denies any tobacco usage or history of. ROS: 09:15 Constitutional: Negative for fever, chills, and weight loss, Eyes: Negative for injury, mitchell pain, redness, and discharge, ENT: Negative for injury, pain, and discharge, Neck: Negative for injury, pain, and swelling, Cardiovascular: Negative for chest pain, palpitations, and edema, Respiratory: Negative for shortness of breath, cough, wheezing, and pleuritic chest pain, Back: Negative for injury and pain, MS/Extremity: Negative for injury and deformity, Skin: Negative for injury, rash, and discoloration, Neuro: Negative for headache, weakness, numbness, tingling, and seizure, Psych: Negative for depression, anxiety, suicide ideation, homicidal ideation, and hallucinations, Allergy/Immunology: Negative for hives, rash, and allergies, Endocrine: Negative for neck swelling, polydipsia, polyuria, polyphagia, and marked weight changes, Hematologic/Lymphatic: Negative for swollen nodes, abnormal bleeding, and unusual bruising. 09:15 Abdomen/GI: Positive for abdominal pain, of the suprapubic area. 09:15 : Positive for urinary symptoms, urinary frequency, small amounts, burning with urination, difficulty urinating. Exam: 09:15 Constitutional: This is a well developed, well nourished patient who is awake, alert, mitchell and in no acute distress. Head/Face: Normocephalic, atraumatic. Eyes: Pupils equal round and reactive to light, extra-ocular motions intact. Lids and lashes normal. Conjunctiva and sclera are non-icteric and not injected. Cornea within normal limits. Periorbital areas with no swelling, redness, or edema. ENT: Nares patent. No nasal discharge, no septal abnormalities noted. Tympanic membranes are normal and external auditory canals are clear. Oropharynx with no redness, swelling, or masses, exudates, or evidence of obstruction, uvula midline. Mucous membranes moist. Neck: Trachea midline, no thyromegaly or masses palpated, and no cervical lymphadenopathy. Supple, full range of motion without nuchal rigidity, or vertebral point tenderness. No Meningismus. Chest/axilla: Normal chest wall appearance and motion. Nontender with no deformity. No lesions are appreciated. Cardiovascular: Regular rate and rhythm with a normal S1 and S2. No gallops, murmurs, or rubs. Normal PMI, no JVD. No pulse deficits. Respiratory: Lungs have equal breath sounds bilaterally, clear to auscultation and percussion. No rales, rhonchi or wheezes noted. No increased work of breathing, no retractions or nasal flaring. Back: No spinal tenderness. No costovertebral tenderness. Full range of motion. Skin: Warm, dry with normal turgor. Normal color with no rashes, no lesions, and no evidence of cellulitis. MS/ Extremity: Pulses equal, no cyanosis. Neurovascular intact. Full, normal range of motion. Neuro: Awake and alert, GCS 15, oriented to person, place, time, and situation. Cranial nerves II-XII grossly intact. Motor strength 5/5 in all extremities. Sensory grossly intact. Cerebellar exam normal. Normal gait. Psych: Awake, alert, with orientation to person, place and time. Behavior, mood, and affect are within normal limits. 09:15 Abdomen/GI: Inspection: abdomen appears normal, Bowel sounds: normal, Palpation: mild abdominal tenderness, in the suprapubic area, Liver: no appreciated palpable abnormalities, Hernia: not appreciated. Vital Signs: 09:23 BP 178 / 89; Pulse 78; Resp 18; Temp 98.7(TE); Pulse Ox 98% on R/A; Weight 58.97 kg; ph Height 5 ft. 4 in. (162.56 cm); 09:23 Body Mass Index 22.31 (58.97 kg, 162.56 cm) ph MDM: 09:02 Patient medically screened. [facility] 09:18 Differential diagnosis: urinary tract infection. Data reviewed: vital signs, nurses [facility] notes, lab test result(s). Data interpreted: library monitor: rate is 75 beats/min, Pulse oximetry: on room air is 100 %. Counseling: I had a detailed discussion with the patient and/or guardian regarding: the historical points, exam findings, and any diagnostic results supporting the discharge/admit diagnosis, the need for outpatient follow up, for definitive care, an trauma manager. ED course: non toxic, well hydrated,will treat with cipro and follow up pcp. 05/30 09:15 Order name: Urine Culture [facility] 05/30 09:23 Order name: Urine Dipstick--Ancillary (enter results) sc 05/30 09:15 Order name: Urine Dipstick-Ancillary (obtain specimen); Complete Time: 09:25 [facility] Administered Medications: 09:40 Drug: Cipro 500 mg Route: PO; ss 18:55 Follow up: Response: No adverse reaction; Medication administered at discharge. ph Disposition: 05/30/20 09:21 Discharged to Home. Impression: Urinary tract infection, site not specified. - Condition is Stable. - Discharge Instructions: Dysuria, Urinary Tract Infection, Adult, Urinary Tract Infection, Adult, [id number]. - Prescriptions for Cipro 250 mg Oral Tablet - take 1 tablet by ORAL route every 12 hours; 14 tablet. Pyridium 200 mg Oral Tablet - take 1 tablet by ORAL route every 8 hours for 3 days; 9 tablet. - Medication Reconciliation Form, Thank You Letter, Antibiotic Education, Prescription Opioid Use form. - Follow up: Private Physician; When: 2 - 3 days; Reason: Recheck today's complaints, Continuance of care, Re-evaluation by your physician. - Problem is new. - Symptoms have improved. Signatures: Dispatcher [employer] EDIsaac Cates MD MD cha Smirch, Shelby, RN RN ss Shonda Flanagan RN RN ph Corrections: (The following items were deleted from the chart) 09:41 09:21 05/30/2020 09:21 Discharged to Home. Impression: Urinary tract infection, site ss not specified. Condition is Stable. Forms are Medication Reconciliation Form, Thank You Letter, Antibiotic Education, Prescription Opioid Use. Follow up: Private Physician; When: 2 - 3 days; Reason: Recheck today's complaints, Continuance of care, Re-evaluation by your physician. Problem is new. Symptoms have improved. mitchell
[2020-05-30] MEDS ORDERED: CIPROFLOXACIN HCL 500 MG TAB ONE (09:36)
[2020-05-30 10:12] LABS: Urine Blood 1+ (NEG); Urine Glucose TRACE (NEG); Urine Protein 3+ (NEG)
[2020-05-30 12:59] VITALS: BP 178/89; TEMP 98.7; O2SAT 98
== END 2020-05-30 09:41 | disposition home or self-care (01) ==
LOC: ER 08:40
DX: N39.0 Urinary tract infection, site not specified (principal); I10 Essential (primary) hypertension; E11.9 Type 2 diabetes mellitus without complications; E03.9 Hypothyroidism, unspecified; I48.91 Unspecified atrial fibrillation; Z79.4 Long term (current) use of insulin; Z88.2 Allergy status to sulfonamides
CPT/HCPCS: 81003; 87077; 87086; 87088; 87186; 99283

== ENCOUNTER 2020-06-25 10:24 | Emergency (ER) | payer OTHER ==
--- OUTSIDE RECORDS SUMMARY | 2020-06-25 10:26 | XMS REPORT | Clinical Summary ---
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
--- OUTSIDE RECORDS SUMMARY | 2020-06-25 10:26 | XMS REPORT | Continuity of Care Document ---
:1940 Author Organization [facility] t Address [address] [place] [address] [address] [place] [address] Care Team Providers Name Role Phone Loyda [...] Date Stop Date Quantity Comments Source History [facility] Alcohol Std Drinks [facility] History [facility] - Alcohol Binge Medical José Miguel ter Sex Assigned At [facility] History [facility] 2018-12-24 2018-12-[address] [facility] - Alcohol Frequency 00:00:00 00:00:00 [facility] History of tobacco 1967-11-12 Current smoker [facility] use [facility]:00 [facility] Smoking Status Start Date Stop Date Source Former smoker 2018-12-25 00:00:00 2018-12-25 00:00:[address] [facility] Medications Ordered Filled Start Stop Current Ordering [...] - solution 10:58: Medical (GUILHERME 128) 26 Burna 5 % ophthalmic solution diflupredna Yes Apply to I [facility] te 2-12 eye(s). [facility] - (DUREZOL) 10:58: Medical 0.05 % Drop 25 Center insulin Yes QD Inject [facility] detemir 2-12 subcutaneo [facility]ukes - U-100 10:58: usly Medical (LEVEMIR) 25 nightly. Burna 100 unit/mL injection levothyroxi Yes Take by [facility] ne 75 mcg 2-12 mouth. [facility] - Cap 10:58: Medical 25 Burna metFORMIN 0 Yes 1000mg Take 1,[address] (GLUCOPHAGE 2-12 mg by [facility]ukes - ) 1000 MG 10:58: mouth 2 Medic al tablet 25 (two) Center times daily with breakfast and dinner. metoprolol Yes 25mg Q.5D Take [address] (LOPRESSOR) 2-12 by mouth 2 Mayra kes - 25 MG 10:58: (two) Medical tablet 25 times Center daily. moxifloxaci Yes 1[drp] [id number] [address] (VIGAMOX) 2-12 [id number] (three) [facility] - 0.5 % 10:58: 3D times Medical ophthalmic 25 daily. Burna solution Procedures This patient has no known procedures. Encounters Start End Encounter Admission Attending Care Care Encounter Source Date/Time Date/Time Type Type Clinicians Facility Department ID 2019-12-29 2019-12-29 MICHAEL [place] [id number] 19 13:53:04 14:03:04 Visit Nick AMBULATOR [id number] Loyda Y [id number] 2019-07-03 2019-07-03 MICHAEL [place] [id number] 88 15:11:53 15:26:53 Visit Nick AMBULATOR [id number] Loyda Y [id number] Results Test Description Test Time Test Comments Results Result Comments Source POCT-GLUCOSE METER 2018-12-25 08:39:00 Test Item Value Reference Range Interpretation Comme nts POC-GLUCOSE METER (GABRIELA) (test 113 mg/dL 70-110 H TESTED AT [facility] 7200 code = 1538) [facility] [id number]
[2020-06-25 11:18] LABS: Urine Blood 2+ (NEG); Urine Glucose NEGATIVE (NEG); Urine Protein 3+ (NEG); Urine Specific Gravity 1.025 (1.005-1.030); Urine pH 5.5 (5.0-7.0)
[2020-06-25 11:21] LABS: Urine Bacteria >50 /HPF (<20); Urine Culture Reflex Order REFLEXED; Urine RBC <5 /HPF (NONE SEEN); Urine Urothelial Cells <5 /HPF (NONE SEEN)
--- NOTE | 2020-06-25 11:31 | ER ---
Nurse's Notes [facility] Name: Carlita Villalobos Age: 79 yrs Sex: Female : 1940 Arrival Date: 06/25/2020 Time: 10:27 Bed 20 Private MD: BILL ARCE Diagnosis: Urinary tract infection, site not specified Presentation: 06/25 10:38 Chief complaint: Urinary frequency, urgency, and pain with urination x 2-3 days. Hx of hb frequent UTIs, sees Dr. Tan. Coronavirus screen: At this time, the client does not indicate any symptoms associated with coronavirus-19. Ebola Screen: No symptoms or risks identified at this time. Initial Sepsis Screen: Does the patient meet any 2 criteria? No. Patient's initial sepsis screen is negative. Does the patient have a suspected source of infection? No. Patient's initial sepsis screen is negative. Risk Assessment: Do you want to hurt yourself or someone else? Patient reports no desire to harm self or others. Onset of symptoms was June 23, 2020. 10:38 Method Of Arrival: Ambulatory hb 10:38 Acuity: PARESH 4 hb Historical: - Allergies: 10:41 Sulfa (Sulfonamide Antibiotics); hb - Home Meds: 10:41 Levemir 100 unit/mL subcutaneous soln [Active]; levothyroxine 75 mcg tab once daily hb [Active]; metformin 1,000 mg Oral tab 2 times per day [Active]; metoprolol tartrate 50 mg Oral tab [Active]; - PMHx: 10:41 Atrial Fib; Diabetes - IDDM; Hypertension; Hypothyroidism; hb - Immunization history:: Adult Immunizations up to date. - Social history:: Smoking status: Patient denies any tobacco usage or history of. Screenin:41 Abuse screen: Denies threats or abuse. Denies injuries from another. Nutritional hb screening: No deficits noted. Tuberculosis screening: No symptoms or risk factors identified. Fall Risk None identified. Assessment: 11:55 General: Appears in no apparent distress. comfortable, slender, well groomed, Behavior ph is calm, cooperative, appropriate for age, Denies fever. Pain: Complains of pain in suprapubic area. Neuro: Level of Consciousness is awake, alert, obeys commands, Oriented to person, place, time, situation. Cardiovascular: Capillary refill < 3 seconds in bilateral fingers Patient's skin is warm and dry. Respiratory: Airway is patent Respiratory effort is even, unlabored. GI: Patient currently denies diarrhea, nausea, vomiting. : Reports burning with urination, urgency, urinary frequency. Derm: Skin is intact, is healthy with good turgor, Skin is pink, warm \T\ dry. Musculoskeletal: Circulation, motion, and sensation intact. Range of motion: intact in all extremities. 12:08 Reassessment: Patient appears in no apparent distress at this time. Patient and/or ph family updated on plan of care and expected duration. Pain level reassessed. Patient is alert, oriented x 3, equal unlabored respirations, skin warm/dry/pink. D/C pending 15 minute shot time. Vital Signs: 10:38 BP 178 / 67; Pulse 65; Resp 16; Temp 98.3; Pulse Ox 100% on R/A; Weight 59.42 kg; hb Height 5 ft. 4 in. (162.56 cm); Pain 8/10; 10:38 Body Mass Index 22.49 (59.42 kg, 162.56 cm) hb ED Course: 10:27 Patient arrived in ED. mr 10:27 BILL ARCE is Private Physician. mr 10:40 Triage completed. hb 10:41 Georgina Feliz FNP-C is [facility]. kb 10:41 Josr Sal MD is Attending Physician. kb 10:41 Arm band placed on. hb 11:31 Darren Craig MD is Referral Physician. kb 11:35 No provider procedures requiring assistance completed. Patient did not have IV access ph during this emergency room visit. 11:47 Shonda Flanagan, RN is Primary Nurse. ph 12:00 Patient has correct armband on for positive identification. Bed in low position. Call ph light in reach. Side rails up X 1. Pulse ox on. NIBP on. Door closed. Noise minimized. Administered Medications: 12:07 Drug: Rocephin (cefTRIAXone) 1 grams Route: IM; Site: right vastus lateralis; ph 12:20 Follow up: Response: No adverse reaction ph Outcome: 11:31 Discharge ordered by . kb 11:35 Patient left the ED. hb 12:23 Discharged to home ambulatory. ph 12:23 Condition: good 12:23 Discharge instructions given to patient, Instructed on discharge instructions, follow up and referral plans. medication usage, Demonstrated understanding of instructions, follow-up care, medications, Prescriptions given X 2. 12:23 Patient left the ED. ph Addendum: 06/27/2020 07:31 Addendum: Culture Results: Positive urine culture. No further action required. Bacteria e b sensitive to prescribed antibiotic. Signatures: Georgina Feliz, [place] [employer]-Dhara Orantes Shonda Flanagan RN RN Mabel Alvarado RN RN Danette Meek Corrections: (The following items were deleted from the chart) 06/25 12:23 12:23 Discharge instructions given to patient, Instructed on discharge instructions, ph follow up and referral plans. medication usage, Demonstrated understanding of instructions, follow-up care, medications, Prescriptions given X 3, ph
--- NOTE | 2020-06-25 11:31 | EDPHYS ---
Physician Documentation [facility] Name: Carlita Villalobos Age: 79 yrs Sex: Female : 1940 Arrival Date: 06/25/2020 Time: 10:27 Bed 20 Private MD: BILL ARCE ED Physician Josr Sal HPI: 06/25 11:35 This 79 yrs old Female presents to ER via Ambulatory with complaints of kb Urinary Problem. 11:35 The patient presents with urinary symptoms, dysuria, frequency, urgency. Onset: The kb symptoms/episode began/occurred yesterday. Modifying factors: The symptoms are alleviated by nothing, the symptoms are aggravated by urinating. Associated signs and symptoms: Pertinent positives: dysuria, urinary frequency, Pertinent negatives: constipation, cramping, diarrhea, dyspareunia, fever, hematuria, nausea, vaginal bleeding, vaginal discharge, vomiting. Severity of symptoms: At their worst the symptoms were moderate, in the emergency department the symptoms are unchanged. The patient has experienced similar episodes in the past. The patient has not recently seen a physician. Historical: - Allergies: 10:41 Sulfa (Sulfonamide Antibiotics); hb - Home Meds: 10:41 Levemir 100 unit/mL subcutaneous soln [Active]; levothyroxine 75 mcg tab once daily hb [Active]; metformin 1,000 mg Oral tab 2 times per day [Active]; metoprolol tartrate 50 mg Oral tab [Active]; - PMHx: 10:41 Atrial Fib; Diabetes - IDDM; Hypertension; Hypothyroidism; hb - Immunization history:: Adult Immunizations up to date. - Social history:: Smoking status: Patient denies any tobacco usage or history of. ROS: 11:35 Positive for urinary symptoms, urinary frequency, burning with urination. kb 11:35 Constitutional: Negative for fever, chills, and weight loss, Cardiovascular: Negative for chest pain, palpitations, and edema, Respiratory: Negative for shortness of breath, cough, wheezing, and pleuritic chest pain, Abdomen/GI: Negative for abdominal pain, nausea, vomiting, diarrhea, and constipation, MS/Extremity: Negative for injury and deformity, Skin: Negative for injury, rash, and discoloration, Neuro: Negative for headache, weakness, numbness, tingling, and seizure. Exam: 11:35 Constitutional: This is a well developed, well nourished patient who is awake, alert, kb and in no acute distress. Head/Face: Normocephalic, atraumatic. Chest/axilla: Normal chest wall appearance and motion. Nontender with no deformity. No lesions are appreciated. Cardiovascular: Regular rate and rhythm with a normal S1 and S2. No gallops, murmurs, or rubs. Normal PMI, no JVD. No pulse deficits. Respiratory: Lungs have equal breath sounds bilaterally, clear to auscultation and percussion. No rales, rhonchi or wheezes noted. No increased work of breathing, no retractions or nasal flaring. Back: No spinal tenderness. No costovertebral tenderness. Full range of motion. Skin: Warm, dry with normal turgor. Normal color with no rashes, no lesions, and no evidence of cellulitis. MS/ Extremity: Pulses equal, no cyanosis. Neurovascular intact. Full, normal range of motion. Neuro: Awake and alert, GCS 15, oriented to person, place, time, and situation. Cranial nerves II-XII grossly intact. Motor strength 5/5 in all extremities. Sensory grossly intact. Cerebellar exam normal. Normal gait. 11:35 Abdomen/GI: Inspection: abdomen appears normal, Bowel sounds: normal, in all quadrants, Palpation: soft, in all quadrants, mild abdominal tenderness, in the suprapubic area. Vital Signs: 10:38 BP 178 / 67; Pulse 65; Resp 16; Temp 98.3; Pulse Ox 100% on R/A; Weight 59.42 kg; hb Height 5 ft. 4 in. (162.56 cm); Pain 8/10; 10:38 Body Mass Index 22.49 (59.42 kg, 162.56 cm) hb MDM: 11:22 Patient medically screened. kb 11:30 Data reviewed: vital signs, nurses notes. Data interpreted: Pulse oximetry: on room air kb is 100 %. Interpretation: normal. Counseling: I had a detailed discussion with the patient and/or guardian regarding: the historical points, exam findings, and any diagnostic results supporting the discharge/admit diagnosis, lab results, the need for outpatient follow up, a urologist, to return to the emergency department if symptoms worsen or persist or if there are any questions or concerns that arise at home. 06/25 10:41 Order name: Urine Microscopic Only; Complete Time: 11:22 kb 06/25 10:57 Order name: Urine Dipstick--Ancillary (enter results); Complete Time: 11:21 eb 06/25 10:41 Order name: Urine Dipstick-Ancillary (obtain specimen); Complete Time: 11:47 kb 06/25 11:22 Order name: Urine Culture EDMS Administered Medications: 12:07 Drug: Rocephin (cefTRIAXone) 1 grams Route: IM; Site: right vastus lateralis; ph 12:20 Follow up: Response: No adverse reaction ph Disposition: 06/25/20 11:31 Discharged to Home. Impression: Urinary tract infection, site not specified. - Condition is Stable. - Discharge Instructions: Urinary Tract Infection, Adult, [id number]. - Prescriptions for Augmentin 875- 125 mg Oral Tablet - take 1 tablet by ORAL route every 12 hours for 10 days; 20 tablet. Pyridium 200 mg Oral Tablet - take 1 tablet by ORAL route every 8 hours for 3 days; 9 tablet. - Medication Reconciliation Form, Thank You Letter, Antibiotic Education, Prescription Opioid Use form. - Follow up: Emergency Department; When: As needed; Reason: Worsening of condition. Follow up: Darren Craig MD; When: 2 - 3 days; Reason: Recheck today's complaints. Addendum: 06/28/2020 08:34 Co-signature as Attending Physician, Josr Sal MD I agree with the assessment and k dr plan of care. Signatures: Dispatcher [employer] EDPR Georgina Feliz, TRUCK SHOP SUPERVISOR-C TRUCK SHOP SUPERVISOR-Ckb Josr Sal MD MD [facility] Shonda Flanagan, RN RN Mabel Alvarado, KIRAN RN hb Corrections: (The following items were deleted from the chart) 06/25 11:35 11:31 06/25/2020 11:31 Discharged to Home. Impression: Urinary tract infection, site hb not specified. Condition is Stable. Forms are Medication Reconciliation Form, Thank You Letter, Antibiotic Education, Prescription Opioid Use. Follow up: Emergency Department; When: As needed; Reason: Worsening of condition. Follow up: Darren Craig; When: 2 - 3 days; Reason: Recheck today's complaints. kb 12:23 11:35 06/25/2020 11:31 Discharged to Home. Impression: Urinary tract infection, site ph not specified. Condition is Stable. Discharge Instructions: Urinary Tract Infection, Adult, [id number]. Prescriptions for Augmentin 875-125 mg Oral Tablet - take 1 tablet by ORAL route every 12 hours for 10 days; 20 tablet, Pyridium 200 mg Oral Tablet - take 1 tablet by ORAL route every 8 hours for 3 days; 9 tablet. and Forms are Medication Reconciliation Form, Thank You Letter, Antibiotic Education, Prescription Opioid Use. Follow up: Emergency Department; When: As needed; Reason: Worsening of condition. Follow up: Darren Craig; When: 2 - 3 days; Reason: Recheck today's complaints. hb
[2020-06-25] MEDS ORDERED: CEFTRIAXONE 1000 MG/VIAL ONE (12:04)
[2020-06-25] MEDS ORDERED: LIDOCAINE 1% MPF 2 ML AMPULE ONE (12:05)
[2020-06-25 12:29] VITALS: BP 178/67; TEMP 98.3; O2SAT 100
== END 2020-06-25 12:23 | disposition home or self-care (01) ==
LOC: ER 10:24
DX: N39.0 Urinary tract infection, site not specified (principal); E03.9 Hypothyroidism, unspecified; I10 Essential (primary) hypertension; E11.9 Type 2 diabetes mellitus without complications; I48.91 Unspecified atrial fibrillation; Z88.2 Allergy status to sulfonamides
CPT/HCPCS: 87088; 87086; 87077; 87186; 96372; 99283; J2001; 81003; 81015

== ENCOUNTER 2021-01-27 17:50 | Inpatient (IN) | payer OTHER ==
--- OUTSIDE RECORDS SUMMARY | 2021-01-27 17:54 | XMS REPORT | Continuity of Care Document ---
:1940 Author Organization [facility] t Address [address] [place] [address] Care Team Providers Name Role Phone MIAN Attending Clinician Unavailable Loyda Ceballos MD Attending Clinician Asha CEBALLOS Attending Clinician Unavailable IRINA Admitting Clinician Unavailable Asha CEBALLOS Admitting Clinician Unavailable [...] Date Stop Date Quantity Comments Source History [facility] - Alcohol Binge Medical José Miguel ter Sex Assigned At [facility] - [facility] History [facility] - Alcohol Std Drinks [facility] Tobacco use and 2018-12-25 2018-12-[address] [facility] - exposure 00:00:00 00:00:00 [facility] Alcohol intake 2018-12-25 2018-12-[address] [facility] - 00:00:00 00:00:00 non-drinker of Medical Ce nter alcohol (finding) History NVOH 2018-12-24 2018-12-[address] [facility] - Alcohol Frequency 00:00:00 00:00:00 [facility] History of tobacco 1967-11-12 Current smoker [facility] use [facility]00 [facility] Smoking Status Start Date Stop Date Source Former smoker 2018-12-25 00:00:00 2018-12-25 00:00:[address] [facility] Medications Ordered Filled Start Stop Current Ordering Indication Dosage Frequency Signature Comments Components Source Medication Medication Date Date Medication? Clinician (SIG) Name Name prednisoLON Yes 1[drp] Q.25D [address] acetate 2-13 (four) [facility] - (PRED 13:33: times Medical FORTE) 1 % 17 daily. [place] ophthalmic suspension diflupredna Yes Apply to I St te 2-13 eye(s). [facility] - (DUREZOL) 13:33: Medical 0.05 % Drop 17 [place] insulin Yes QD Inject [facility] detemir 2-13 subcutaneo [facility] - U-100 13:33: usly Medical (LEVEMIR) 17 nightly. [place] 100 unit/mL injection levothyroxi Yes Take by [facility] ne 75 mcg 2-13 mouth. [facility] - Cap 13:33: Medical 17 [place] metFORMIN Yes 1000mg Take 1,[address] (GLUCOPHAGE 2-13 mg by [facility] - ) 1000 MG 13:33: mouth 2 Medic al tablet 17 (two) Center times daily with breakfast and dinner. metoprolol Yes 25mg Q.5D Take [address] (LOPRESSOR) 2-13 by mouth 2 Mayra kes - 25 MG 13:33: (two) Medical tablet 17 times Center daily. moxifloxaci Yes 1[drp] Q.[id number] [address] (VIGAMOX) 2-13 [id number] (three) [facility] - 0.5 % 13:33: 3D times Medical ophthalmic 17 daily. [place] solution hypertonic Yes 1[drp] [address] ophthalmic 2-13 needed. [facility] - solution 13:33: Medical (GUILHERME 128) 17 Center 5 % ophthalmic solution Procedures This patient has no known procedures. Plan of Care Planned Activity Planned Date Details Comments Source Future Scheduled 2020-07-13 INFLUENZA VACCINE (#1) [facility] - Test 00:00:00 [code = INFLUENZA Medical Ce nter VACCINE (#1)] Future Scheduled 2018-11-[address] [facility] - Test 00:00:00 WELLNESS (YEAR 2 or Medical Center FIRST YEAR if no IPPE) [code = MEDICARE ANNUAL WELLNESS (YEAR 2 or FIRST YEAR if no IPPE)] Future Scheduled 2004 PNEUMOCOCCAL 65+ YRS [facility] - Test 00:00:00 (1 of 1 - Medical Center [id number] PCV13) [code = PNEUMOCOCCAL 65+ YRS (1 of 1 - [id number] PCV13)] Encounters Start End Encounter Admission Attending Care Care Encounter Source Date/Time Date/Time Type Type Clinicians Facility Department ID 2021-01-15 2021-01-20 Inpatient MIAN [facility] [id number] [address] [place] 00:00:00 00:00:00 [facility]A [address] 2019-12-29 2019-12-29 Office MICHAEL Ceballos [id number] 19 13:53:04 14:03:04 Visit Nick AMBULATOR [id number] Loyda Y [id number] 2019-07-03 2019-07-03 Office MICHAEL Ceballos [id number] 15:11:53 15:26:53 Visit Nick AMBULATOR [id number] Loyda Y [id number] Results Test Description Test Time Test Comments Results Result Comments Source POCT-GLUCOSE METER 2018-12-25 08:39:00 Test Item Value Reference Range Interpretation Comme nts POC-GLUCOSE METER (GABRIELA) (test 113 mg/dL 70-110 H TESTED AT [facility] 5080 code = 1538) [facility] [address]
[2021-01-27 19:18] LABS: Absolute Lymphocytes (CBC) 1.7 K/uL (0.7-4.9); Basophils % 0.9 % (0-1.3); Hematocrit 32.4 % (36.0-45.0); Lymphocytes % 16.8 % (15.3-44.8); MPV 9.8 fL (7.6-11.3)
[2021-01-27 19:23] LABS: Protime INR 1.47
[2021-01-27 19:38] LABS: Alkaline Phosphatase ND U/L (45-117)
[2021-01-27] MEDS ORDERED: INSULIN -REGULAR HUMAN 50 UNIT/0.5 ML ML ONE (19:47)
[2021-01-27] MEDS ORDERED: AZITHROMYCIN 500 MG INJ IVPB ONE (19:47)
--- NOTE | 2021-01-27 19:47 | RAD REPORT ---
EXAM DESCRIPTION: RAD - Chest Single View - 01/27/2021 7:33 pm CLINICAL HISTORY: DYSPNEA COMPARISON: CR; Chest 09/03/2019 TECHNIQUE: AP portable chest image was obtained 01/27/2021 7:33 pm . FINDINGS: Patient has a baseline chronic interstitial lung pattern. The interstitial markings are in creased over that baseline and there are scattered alveolar opacities present. Heart size is normal a nd stable. Hilar granulomatous type calcifications are present. There is mild vascular engorgement. N o measurable pleural effusion and no pneumothorax. No acute bony abnormality seen. No acute aortic fi ndings suspected. IMPRESSION: Interstitial and patchy alveolar opacities are present increased over baseline examinati on. Viral infiltrate is certainly possible. Patient could have a failure or volume overload process as we ll.
[2021-01-27] MEDS ORDERED: NA CHLORIDE 0.9% 250 ML ONE (19:48)
[2021-01-27] MEDS ORDERED: NA CHLORIDE 0.9% 1,000 ML ONE (19:48)
[2021-01-27] MEDS ORDERED: CEFTRIAXONE/SWI 1gm 1 GM/10 ML SYR ONE (19:48)
[2021-01-27] MEDS ORDERED: ONDANSETRON 4 MG/2 ML VIAL ONE (19:56)
[2021-01-27 20:20] LABS: ALT/SGPT 21 U/L (12-78); AST/SGOT 21 U/L (15-37); Albumin 2.6 g/dL (3.4-5.0); BUN Blood Urea Nitrogen 46 mg/dL (7-18); Bicarbonate 25 mmol/L (21-32); Bilirubin Direct 0.2 mg/dL (0-0.2); Bilirubin Total 0.8 mg/dL (0.2-1.0); Creatine Phosphokinase 115 U/L (26-192); Lipase 196 U/L (73-393); Potassium 5.1 mmol/L (3.5-5.1); Protein, Total 8.6 g/dL (6.4-8.2); Sodium Level 133 mmol/L (136-145); Troponin (Emerg Dept Use Only) 2.48 ng/mL (0.0-0.045)
[2021-01-27 20:24] LABS: Glucose Level 481 mg/dL (74-106)
--- NOTE | 2021-01-27 20:57 | ER ---
Nurse's Notes [facility] Name: Carlita Villalobos Age: 80 yrs Sex: Female : 1940 Arrival Date: 01/27/2021 Time: 17:53 Bed 8 Private MD: Diagnosis: Acute kidney failure;Non-ST elevation (NSTEMI) myocardial infarction;Acute combined systolic (congestive) and diastolic (congestive) heart failure;Hyperglycemia, unspecified Presentation: 01/27 18:10 Chief complaint: Patient's son or daughter states: Daughter: was admitted at [place] [address] for DKA 01/15-09/2021. Started feeling bad today, confused, sleepy, and SOB. BGL 374 in the morning. Did not take insulin as scheduled in the morning. BGL 30 mins EXHIBITIONS CURATOR was 566. Levemir 20 units taken at 1500 this afternoon. Coronavirus screen: Client denies travel out of the [place] in the last 14 days. shortness of breath, Client presents with at least one sign or symptom that may indicate coronavirus-19. Standard/surgical mask placed on the client. Provider contacted for isolation considerations. Ebola Screen: Patient negative for fever greater than or equal to 101.5 degrees Fahrenheit, and additional compatible Ebola Virus Disease symptoms Patient denies exposure to infectious person. Patient denies travel to an Ebola-affected area in the 21 days before illness onset. No symptoms or risks identified at this time. Initial Sepsis Screen: Does the patient meet any 2 criteria? No. Patient's initial sepsis screen is negative. Does the patient have a suspected source of infection? No. Patient's initial sepsis screen is negative. Risk Assessment: Do you want to hurt yourself or someone else? Patient reports no desire to harm self or others. Onset of symptoms was January 27, 2021. 18:10 Method Of Arrival: Ambulatory ca1 18:10 Acuity: PARESH 2 ca1 Historical: - Allergies: 18:17 Sulfa (Sulfonamide Antibiotics); ca1 - PMHx: 18:17 Atrial Fib; Diabetes - IDDM; Hypertension; Hypothyroidism; ca1 - Immunization history:: Pneumococcal vaccine is up to date, Flu vaccine is not up to date. - Social history:: Smoking status: Patient denies any tobacco usage or history of. Screenin:20 Abuse screen: Denies threats or abuse. Denies injuries from another. Nutritional hb screening: No deficits noted. Tuberculosis screening: No symptoms or risk factors identified. Fall Risk None identified. Assessment: 18:21 General: Appears in no apparent distress. Behavior is calm, cooperative. Pain: Denies hb pain. Neuro: Level of Consciousness is awake, alert, obeys commands, Oriented to person, place, time, situation. Cardiovascular: Patient's skin is warm and dry. Rhythm is regular. Respiratory: Respiratory effort is even, unlabored, Respiratory pattern is regular, symmetrical. GI: No signs and/or symptoms were reported involving the gastrointestinal system. : No signs and/or symptoms were reported regarding the genitourinary system. EENT: No signs and/or symptoms were reported regarding the EENT system. Derm: Skin is pink, warm \T\ dry. Musculoskeletal: No signs and/or symptoms reported regarding the musculoskeletal system. 20:24 Reassessment: troponin 2.48 glucose 481 disha from laboratory called, provider aware. rr5 20:30 Reassessment: Patient appears in no apparent distress at this time. Patient and/or rr5 family updated on plan of care and expected duration. Pain level reassessed. Patient is alert, oriented x 3, equal unlabored respirations, skin warm/dry/pink. awaiting for results. 21:30 Reassessment: Patient appears in no apparent distress at this time. No changes from rr5 previously documented assessment. 22:30 Reassessment: Patient appears in no apparent distress at this time. Patient is alert, rr5 oriented x 3, equal unlabored respirations, skin warm/dry/pink. no complaints made, on heparin drip no signs of bleeding noted. 23:39 Reassessment: Patient appears in no apparent distress at this time. Patient is alert, rr5 oriented x 3, equal unlabored respirations, skin warm/dry/pink. Patient states symptoms have improved. Vital Signs: 18:10 BP 118 / 57; Pulse 78; Resp 16 S; Temp 97.4(TE); Pulse Ox 90% on R/A; Weight 54.43 kg ca1 (R); Height 5 ft. 4 in. (162.56 cm) (R); Pain 0/10; 18:23 Pulse Ox 83% on R/A; hb 18:25 Pulse Ox 92% on 2 lpm NC; hb 19:46 BP 116 / 67; Pulse 76; Resp 19; Temp 97.5; Pulse Ox 98% on 2 lpm NC; rr5 20:30 BP 113 / 80; Pulse 70; Resp 17; Pulse Ox 95% 3 lpm ; rr5 21:30 BP 125 / 80; Pulse 79; Resp 15; Pulse Ox 94% 3 lpm ; rr5 22:30 BP 118 / 60; Pulse 70; Resp 17; Pulse Ox 95% on 3 lpm NC; rr5 23:17 BP 116 / 63; Pulse 73; Resp 16; Temp 97.8; Pulse Ox 93% on 3 lpm NC; rr5 18:10 Body Mass Index 20.60 (54.43 kg, 162.56 cm) ca1 ED Course: 17:42 EKG done, by ED staff, reviewed by Addy SALGUERO. sv 17:53 Patient arrived in ED. ds1 18:16 Triage completed. ca1 18:17 Arm band placed on right wrist. ca1 18:19 Addy Jaramillo PA is PHCP. jr8 18:19 Teja Daniel MD is Attending Physician. jr8 18:20 Mabel Alvarado, KIRAN is Primary Nurse. hb 18:21 Patient has correct armband on for positive identification. Bed in low position. Call hb light in reach. 18:45 Inserted saline lock: 20 gauge in right antecubital area, using aseptic technique. hb Blood collected. 18:47 Procalcitonin Sent. sv 18:47 Lipase Sent. sv 18:47 Basic Metabolic Panel Sent. sv 18:47 CBC with Diff Sent. sv 18:47 Blood Culture Adult (2) Sent. sv 18:47 LFT's Sent. sv 18:47 CPK Sent. sv 18:47 Lactate Sent. sv 18:51 Ketone, Serum Sent. sv 19:34 Chest Single View XRAY In Process Unspecified. EDMS 20:56 Kapil Servin MD is Hospitalizing Provider. jr8 23:34 No provider procedures requiring assistance completed. Patient admitted, IV remains in rr5 place. intact, No redness/swelling at site. Administered Medications: 09:37 Drug: Rocephin - (cefTRIAXone) 1 grams Route: IVPB; Infused Over: 30 mins; Site: right wh antecubital; 20:30 Follow up: Response: No adverse reaction; IV Status: Completed infusion; IV Intake: [id number] 19:35 Drug: NS 0.9% 1000 ml Route: IV; Rate: 1000 ml; Site: right antecubital; 21:00 Follow up: Response: No adverse reaction; IV Status: Completed infusion; IV Intake: rr5 1000ml 19:39 Drug: Insulin Regular Human 10 units {Co-Signature: rr5 (Dontrell Jimenez RN).} Route: IVP; Site: right antecubital; 21:40 Follow up: Response: No adverse reaction; Blood sugar is lowered rr5 19:41 Drug: Zithromax (azithromycin) 500 mg Route: IVPB; Infused Over: 1 hrs; Site: right antecubital; 20:30 Follow up: Response: No adverse reaction; IV Status: Completed infusion; IV Intake: rr5 250ml 19:43 Drug: Zofran (Ondansetron) 4 mg Route: IVP; Site: right antecubital; 20:40 Follow up: Response: No adverse reaction rr5 20:24 Drug: HEParin 60 units/kg {Co-Signature: (Ashley Harmon RN).} Route: IV; Rate: bolus; rr5 Site: right antecubital; 23:37 Follow up: Response: No adverse reaction; IV Status: Infusion continued upon admission rr5 21:00 Not Given (Physician Discretion): Lasix 20 mg IVP once jr8 21:20 Drug: Lasix 40 mg Route: IVP; Site: right antecubital; rr5 23:37 Follow up: Response: No adverse reaction rr5 21:25 Drug: Heparin (MO Drip) 12 units/kg/hr - (HEParin 27937 units, D5W 500 ml) rr5 {Co-Signature: (Ashley Harmon RN).} Route: IV; Rate: calculated rate; Site: right antecubital; 23:37 Follow up: Response: No adverse reaction; IV Status: Completed infusion rr5 Point of Care Testing: Blood Glucose: 18:08 Blood Glucose: 492 mg/dL; ca1 Ranges: Intake: 20:30 IV: 250ml; Total: 250ml. rr5 20:30 IV: 10ml; Total: 260ml. rr5 21:00 IV: 1000ml; Total: 1260ml. rr5 Outcome: 20:56 Decision to Hospitalize by Provider. jr8 23:34 Admitted to Med/surg accompanied by nurse, via stretcher, room demarco, with oxygen, with rr5 chart, Report called to demarco 23:34 Condition: stable 23:34 Instructed on the need for admit. 23:50 Patient left the ED. rr5 Signatures: Dispatcher [employer] EDMS Debi Serra, RN RN Tiffanie Barnes ds1 Addy Jaramillo PA PA jr8 Mabel Alvarado RN RN Ashley Harmon RN RN Dontrell Jimenez RN RN rr5 Esther Steele RN RN ca1 Dontrell Jimenez RN rr5 Ashley Harmon RN Corrections: (The following items were deleted from the chart) 18:22 18:20 Blood Glucose: Blood Glucose [id number]=040 mg/dL. ca1 ca1
--- NOTE | 2021-01-27 20:57 | EDPHYS ---
Physician Documentation [facility] Name: Carlita Villalobos Age: 80 yrs Sex: Female : 1940 Arrival Date: 01/27/2021 Time: 17:53 Bed 8 Private MD: ED Physician Teja Daniel HPI: 01/27 20:52 This 80 yrs old Female presents to ER via Ambulatory with complaints of High jr8 Blood Sugar - 500+. 18:32 Onset: The symptoms/episode began/occurred suddenly. Patient reports for AMS and jr8 possible DKA. During interview, Pt was AAOx4 and a good historian. Stated that she recently got out of [facility] for DKA and TIA . 20:52 Current symptoms: In the emergency department the patient's symptoms are unchanged from jr8 the initial presentation. It is unknown whether or not the patient has had similar symptoms in the past. The patient has been recently seen by a physician:. Historical: - Allergies: 18:17 Sulfa (Sulfonamide Antibiotics); ca1 - PMHx: 18:17 Atrial Fib; Diabetes - IDDM; Hypertension; Hypothyroidism; ca1 - Immunization history:: Pneumococcal vaccine is up to date, Flu vaccine is not up to date. - Social history:: Smoking status: Patient denies any tobacco usage or history of. ROS: 18:34 Cardiovascular: Negative for chest pain, palpitations, and edema, Respiratory: Positive jr8 for shortness of breath. Negative for cough or pain Abdomen/GI: Negative for abdominal pain, nausea, vomiting, diarrhea, and constipation, MS/Extremity: Negative for injury and deformity, Neuro: Negative for headache, weakness, numbness, tingling, and seizure. Positive for altered mentation 20:52 All other systems are negative. jr8 Exam: 18:34 Constitutional: The patient appears alert, awake, comfortable. jr8 18:34 Chest/axilla: Inspection: normal, Palpation: is normal. 18:34 Cardiovascular: Rate: normal, actual rate is 78 bpm, Rhythm: regular, Pulses: Pulses are 2+ in right radial artery and left radial artery. Heart sounds: normal, Edema: is not appreciated. 18:34 Respiratory: the patient does not display signs of respiratory distress, Respirations: normal, Breath sounds: rales, that are mild, are heard in the right upper lobe, right posterior upper lobe and left posterior lower lobe, Respiratory rate: 20 18:34 Neuro: Orientation: is normal, to person, place, time, situation, Mentation: is normal, able to follow commands, Memory: is normal, immediate memory is intact, recent memory is intact, remote memory is intact. 20:52 Eyes: Pupils equal round and reactive to light, extra-ocular motions intact. Lids and jr8 lashes normal. Conjunctiva and sclera are non-icteric and not injected. Cornea within normal limits. Periorbital areas with no swelling, redness, or edema. ENT: Nares patent. No nasal discharge, no septal abnormalities noted. Tympanic membranes are normal and external auditory canals are clear. Oropharynx with no redness, swelling, or masses, exudates, or evidence of obstruction, uvula midline. Mucous membranes moist. Neck: Trachea midline, no thyromegaly or masses palpated, and no cervical lymphadenopathy. Supple, full range of motion without nuchal rigidity, or vertebral point tenderness. No Meningismus. Abdomen/GI: Soft, non-tender, with normal bowel sounds. No distension or tympany. No guarding or rebound. No evidence of tenderness throughout. Back: No spinal tenderness. No costovertebral tenderness. Full range of motion. Skin: Warm, dry with normal turgor. Normal color with no rashes, no lesions, and no evidence of cellulitis. MS/ Extremity: Pulses equal, no cyanosis. Neurovascular intact. Full, normal range of motion. Vital Signs: 18:10 BP 118 / 57; Pulse 78; Resp 16 S; Temp 97.4(TE); Pulse Ox 90% on R/A; Weight 54.43 kg ca1 (R); Height 5 ft. 4 in. (162.56 cm) (R); Pain 0/10; 18:23 Pulse Ox 83% on R/A; hb 18:25 Pulse Ox 92% on 2 lpm NC; hb 19:46 BP 116 / 67; Pulse 76; Resp 19; Temp 97.5; Pulse Ox 98% on 2 lpm NC; rr5 20:30 BP 113 / 80; Pulse 70; Resp 17; Pulse Ox 95% 3 lpm ; rr5 21:30 BP 125 / 80; Pulse 79; Resp 15; Pulse Ox 94% 3 lpm ; rr5 22:30 BP 118 / 60; Pulse 70; Resp 17; Pulse Ox 95% on 3 lpm NC; rr5 23:17 BP 116 / 63; Pulse 73; Resp 16; Temp 97.8; Pulse Ox 93% on 3 lpm NC; rr5 18:10 Body Mass Index 20.60 (54.43 kg, 162.56 cm) ca1 MDM: 18:19 Patient medically screened. [facility] 18:36 Data reviewed: vital signs, nurses notes, lab test result(s), EKG. Data interpreted: [facility] youth nutritional monitor: rate is 78 beats/min, Pulse oximetry: on room air is 92 %. Interpretation: Placed on O2 during interview. No distress noted. . 20:52 Data reviewed: radiologic studies, plain films. Counseling: I had a detailed discussion [facility] with the patient and/or guardian regarding: the historical points, exam findings, and any diagnostic results supporting the discharge/admit diagnosis, lab results, radiology results, the need for further work-up and treatment in the hospital. 21:00 ED course: Discussed case with Dr. Servin who accepted and will see patient. Will [facility] consult Cardiology as well. 01/27 18:30 Order name: Basic Metabolic Panel [facility] 01/27 18:30 Order name: Blood Culture Adult (2) [facility] 01/27 18:30 Order name: CBC with Diff [facility] 01/27 18:30 Order name: CPK [facility] 01/27 18:30 Order name: Lactate [facility] 01/27 18:30 Order name: LFT's [facility] 01/27 18:30 Order name: Lipase [facility] 01/27 18:30 Order name: Procalcitonin [facility] 01/27 18:30 Order name: Protime (+inr); Complete Time: 19:30 [facility] 01/27 18:30 Order name: Ptt, Activated; Complete Time: 19:30 [facility] 01/27 18:30 Order name: Troponin (emerg Dept Use Only); Complete Time: 20:28 [facility] 01/27 18:30 Order name: Urine Microscopic Only [facility] 01/27 18:30 Order name: Basic Metabolic Panel; Complete Time: 20:28 [facility] 01/27 18:30 Order name: Chest Single View XRAY; Complete Time: 19:51 [facility] 01/27 18:30 Order name: Blood Culture [facility] 01/27 18:30 Order name: CBC with Automated Diff; Complete Time: 19:30 [facility] 01/27 18:30 Order name: Creatine Phosphokinase; Complete Time: 20:28 [facility] 01/27 18:30 Order name: Lactate; Complete Time: 19:21 [facility]MS 01/27 18:30 Order name: Liver (Hepatic) Function; Complete Time: 20:28 [facility]MS 01/27 18:30 Order name: Lipase; Complete Time: 20:28 [facility]MS 01/27 18:30 Order name: Procalcitonin; Complete Time: 19:39 [facility]MS 01/27 18:32 Order name: Ketone, Serum [facility] 01/27 18:32 Order name: Acetone Level; Complete Time: 19:24 [facility]MS 01/27 18:45 Order name: Glucose, Ancillary Testing; Complete Time: 18:48 EDMS 01/27 20:37 Order name: SARS-COV-2 RT PCR; Complete Time: 20:49 EDMS 01/27 20:50 Order name: BNP [facility] 01/27 20:50 Order name: NT PRO-BNP; Complete Time: 14:28 [facility]MS 01/27 22:49 Order name: Lactate Sepsis 2 HR Follow-up; Complete Time: 14:28 EDMS 01/27 23:07 Order name: Glucose, Ancillary Testing; Complete Time: 14:28 [facility]ID 01/27 18:30 Order name: Accucheck; Complete Time: 18:46 [facility] 01/27 18:30 Order name: Cardiac monitoring; Complete Time: 18:46 [facility] 01/27 18:30 Order name: EKG - Nurse/Tech; Complete Time: 18:46 [facility] 01/27 18:30 Order name: IV Saline Lock - Large Bore; Complete Time: 18:47 [facility] 01/27 18:30 Order name: Labs collected and sent; Complete Time: 18:47 [facility] 01/27 18:30 Order name: O2 Per Protocol; Complete Time: 18:51 [facility] 01/27 18:30 Order name: O2 Sat Monitoring; Complete Time: 18:51 jr8 Administered Medications: 09:37 Drug: Rocephin - (cefTRIAXone) 1 grams Route: IVPB; Infused Over: 30 mins; Site: right wh antecubital; 20:30 Follow up: Response: No adverse reaction; IV Status: Completed infusion; IV Intake: [id number] 19:35 Drug: NS 0.9% 1000 ml Route: IV; Rate: 1000 ml; Site: right antecubital; 21:00 Follow up: Response: No adverse reaction; IV Status: Completed infusion; IV Intake: rr5 1000ml 19:39 Drug: Insulin Regular Human 10 units {Co-Signature: rr5 (Dontrell Jimenez RN).} Route: IVP; Site: right antecubital; 21:40 Follow up: Response: No adverse reaction; Blood sugar is lowered rr5 19:41 Drug: Zithromax (azithromycin) 500 mg Route: IVPB; Infused Over: 1 hrs; Site: right antecubital; 20:30 Follow up: Response: No adverse reaction; IV Status: Completed infusion; IV Intake: rr5 250ml 19:43 Drug: Zofran (Ondansetron) 4 mg Route: IVP; Site: right antecubital; 20:40 Follow up: Response: No adverse reaction rr5 20:24 Drug: HEParin 60 units/kg {Co-Signature: (Ashley Harmon RN).} Route: IV; Rate: bolus; rr5 Site: right antecubital; 23:37 Follow up: Response: No adverse reaction; IV Status: Infusion continued upon admission rr5 21:00 Not Given (Physician Discretion): Lasix 20 mg IVP once jr8 21:20 Drug: Lasix 40 mg Route: IVP; Site: right antecubital; rr5 23:37 Follow up: Response: No adverse reaction rr5 21:25 Drug: Heparin (MD Drip) 12 units/kg/hr - (HEParin 56684 units, D5W 500 ml) rr5 {Co-Signature: (Ashley Harmon RN).} Route: IV; Rate: calculated rate; Site: right antecubital; 23:37 Follow up: Response: No adverse reaction; IV Status: Completed infusion rr5 Point of Care Testing: Blood Glucose: 18:08 Blood Glucose: 492 mg/dL; ca1 Ranges: Critical Glucose Levels:Adult <50 mg/dl or >400 mg/dl <40 mg/dl or >180 mg/dl Disposition: 01/28 19:27 Co-signature as Attending Physician, Teja Daniel MD I agree with the assessment and tw4 plan of care. Disposition: 01/27/21 20:56 Hospitalization ordered by Kapil Servin for Inpatient Admission. Preliminary diagnosis are Acute kidney failure, Non-ST elevation (NSTEMI) myocardial infarction, Acute combined systolic (congestive) and diastolic (congestive) heart failure, Hyperglycemia, unspecified. - Bed requested for Telemetry/MedSurg (Inpatient). - Status is Inpatient Admission. rr5 - Condition is Fair. - Problem is new. - Symptoms have improved. Signatures: Dispatcher [employer] EDID Addy Jaramillo PA PA jr8 Parrish Hou, DIE FINISHER FORGING-C DIE FINISHER FORGING-Cla1 Luci Humphries, RN KIRAN Ashley Harmon RN KIRAN Teja Daniel MD MD tw4 Dontrell Jimenez RN KIRAN rr5 Esther Steele RN RN [facility] Dontrell Jimenez RN rr5 Ashley Harmon RN Corrections: (The following items were deleted from the chart) 01/27 19:43 18:31 CORONAVIRUS+MR.LAB.BRZ ordered. EDID EDID 20:53 18:32 Patient reports for AMS and possible DKA. During interview, Pt was AAOx4 and a jr8 good historian.. jr8 20:54 18:34 Cardiovascular: Negative for chest pain, palpitations, and edema, Respiratory: jr8 Negative for shortness of breath, cough, wheezing, and pleuritic chest pain, Abdomen/GI: Negative for abdominal pain, nausea, vomiting, diarrhea, and constipation, MS/Extremity: Negative for injury and deformity, Neuro: Negative for headache, weakness, numbness, tingling, and seizure, jr8 20:55 18:34 Respiratory: the patient does not display signs of respiratory distress, jr8 Respirations: normal, Breath sounds: are clear throughout, Respiratory rate: 20 jr8 20:57 20:56 Hospitalization Ordered by Kapil Servin MD for Inpatient Admission. Preliminary jr8 diagnosis is Acute kidney failure; Non-ST elevation (NSTEMI) myocardial infarction; Acute combined systolic (congestive) and diastolic (congestive) heart failure. Bed requested for Telemetry/MedSurg (Inpatient). Status is Inpatient Admission. Condition is Fair. Problem is new. Symptoms have improved. jr8 21:00 20:57 01/27/2021 20:56 Hospitalization Ordered by Kapil Servin MD for Inpatient jr8 Admission. Preliminary diagnosis is Acute kidney failure; Non-ST elevation (NSTEMI) myocardial infarction; Acute combined systolic (congestive) and diastolic (congestive) heart failure; Pneumonia due to other specified bacteria; Hyperglycemia, unspecified. Bed requested for Telemetry/MedSurg (Inpatient). Status is Inpatient Admission. Condition is Fair. Problem is new. Symptoms have improved. 8 22:17 21:00 01/27/2021 20:56 Hospitalization Ordered by Kapil Servin MD for Inpatient cg Admission. Preliminary diagnosis is Acute kidney failure; Non-ST elevation (NSTEMI) myocardial infarction; Acute combined systolic (congestive) and diastolic (congestive) heart failure; Hyperglycemia, unspecified. Bed requested for Telemetry/MedSurg (Inpatient). Status is Inpatient Admission. Condition is Fair. Problem is new. Symptoms have improved. 8 23:50 22:17 01/27/2021 20:56 Hospitalization Ordered by Kapil Servin MD for Inpatient rr5 Admission. Preliminary diagnosis is Acute kidney failure; Non-ST elevation (NSTEMI) myocardial infarction; Acute combined systolic (congestive) and diastolic (congestive) heart failure; Hyperglycemia, unspecified. Bed requested for Telemetry/MedSurg (Inpatient). Status is Inpatient Admission. Condition is Fair. Problem is new. Symptoms have improved. cg
[2021-01-27] MEDS ORDERED: HEPARIN 5000 UNIT/ML 1 ML VIAL ONE (21:24)
[2021-01-27] MEDS ORDERED: HEPARIN/D5W 25,000 UNIT/500 ML BAG IV ONE (21:24)
[2021-01-27] MEDS ORDERED: FUROSEMIDE 40 MG/4 ML VIAL ONE (21:38)
[2021-01-27] MEDS ORDERED: ONDANSETRON 4 MG/2 ML VIAL IV PRN (23:33)
[2021-01-27] MEDS ORDERED: GLUCAGON 1 MG/VIAL IM PRN (23:33)
[2021-01-27] MEDS ORDERED: ALBUTEROL 2.5 MG/3 ML NEB SOL NEB PRN (23:33)
[2021-01-27] MEDS ORDERED: IPRATROPIUM BROM 0.5MG/2.5ML NEB PRN (23:33)
[2021-01-27] MEDS ORDERED: D50W 25 GM/50 ML SYRINGE IV PRN (23:33)
[2021-01-28 00:51] VITALS: BMI 21.3
[2021-01-28 05:55] LABS: Absolute Lymphocytes (CBC) 2.6 K/uL (0.7-4.9); Basophils % 0.9 % (0-1.3); Hematocrit 27.7 % (36.0-45.0); Lymphocytes % 28.7 % (15.3-44.8); MPV 9.5 fL (7.6-11.3); RBC Red Blood Cell Count 3.11 M/uL (3.86-4.86)
[2021-01-28 06:18] LABS: Potassium 4.1 mmol/L (3.5-5.1)
[2021-01-28] MEDS: INSULIN -REGULAR HUMAN 50 UNIT/0.5 ML ML SQ SCH ×5 (07:30→20:51)
[2021-01-28] MEDS: FUROSEMIDE 20 MG/ 2ML VIAL IV SCH ×2 (07:47→17:00)
[2021-01-28] MEDS: ASPIRIN 81 MG CHEWABLE TABLET PO SCH (07:47)
[2021-01-28] MEDS ORDERED: GLUCAGON 1 MG/VIAL IM PRN (07:53)
[2021-01-28] MEDS ORDERED: D50W 25 GM/50 ML SYRINGE IV PRN (07:53)
[2021-01-28] MEDS: INSULIN GLARGINE 100 UNITS/ML SQ SCH (08:59)
[2021-01-28] MEDS: NIFEDIPINE XL 60 MG TABLET PO SCH (08:59)
[2021-01-28] MEDS ORDERED: APIXABAN 2.5 MG TABLET PO SCH (09:00)
--- NOTE | 2021-01-28 12:02 | P.HP ---
Certification for Inpatient Patient admitted to: Inpatient Patient will require the following post-hospital care: Home Health Services Practitioner: I am a practitioner with admitting privileges, knowledge of patient current condition, hospital course, and medical plan of care. Services: Services provided to patient in accordance with Admission requirements found in Title 42 Section 412.3 of the Code of Federal Regulations Patient History Date of Service: 01/28/21 Primary Care Provider: Gareth Reason for admission: chf exacerbation. History of Present Illness: Patient is a recent patient of mine. She has a history of diabetes. Was recently admitted to [facility] for dka. The patient was to follow up with cardiology and nephrology. Started with me on Sunday. We were to switch her from 4 injections to one She has been having difficulty taking her medications. She has been getting confused, sob and more sleepy per her daughter. Was to come in to the office. However her daughter went over to her house and found her blood sugar was in the 500 and she was short of breath. Found to have elevated sugars in the ER. She had a troponin bump and also signs of chf exacerbation. We had not gotten her records from [facility] [place]. She has stage 4 ckd. this morning she is resting comfortably in bed. The sugars are improved. She is on a heparin drip Allergies Sulfa (Sulfonamide Antibiotics) Allergy (Intermediate, Verified 01/28/21 01:12) Nausea/Vomiting/flu like symptoms Home Medications: Apixaban [Eliquis] 2.5 mg PO BID 01/28/21 Atorvastatin Calcium [Lipitor] 80 mg PO BEDTIME 01/28/21 Cephalexin [Keflex] 250 mg PO DAILY 01/28/21 Dulaglutide [Trulicity] 0.75 mg SQ EVERY 7TH DAY 01/28/21 Furosemide [Lasix] 40 mg PO DAILY 01/28/21 Insulin Detemir [Levemir] 20 units SQ DAILY 01/28/21 Levothyroxine [Synthroid] 88 mcg PO [id number] 01/28/21 Metoprolol Succinate [Toprol Xl] 50 mg PO BID 01/28/21 Nifedipine [Procardia Xl] 60 mg PO DAILY 01/28/21 RX: Sodium Bicarbonate 650 mg PO TID 01/28/21 - Past Medical/Surgical History Has patient received pneumonia vaccine in the past: Yes Diabetic: Yes -: Diabetes mellitus type 2 insulin-dependent -: Hypothyroidism -: Atrial fibrillation not on chronic anti coagulation therapy -: COPD -: HTN -: History of MAC pulmonary infection -: Back surgery -: Hysterectomy -: Bladder suspension -: Benign tumor removed from right arm -: Tonsillectomy -: Thyroid nodule removed with some thyroid Psychosocial/ Personal History: , 4-children, She does not work. - Family History Father -: Heart disease, Diabetes Notes: Sister -: Diabetes Mother -: Diabetes Brother -: Diabetes - Social History Smoking Status: Former smoker Alcohol use: No CD- Drugs: No Caffeine use: No Place of Residence: Home Review of Systems 10-point ROS is otherwise unremarkable General: Malaise Respiratory: SOB with Excertion Physical Examination - Vital Signs Temperature: 97.0 F Blood Pressure: 148/68 Pulse: 77 Respirations: 18 Pulse Ox (%): 94 - Physical Exam General: Alert, In no apparent distress HEENT: Atraumatic, PERRLA, Mucous membr. moist/pink, EOMI, Sclerae nonicteric Neck: Supple, 2+ carotid pulse no bruit, No LAD, Without JVD or thyroid abnormality Respiratory: Clear to auscultation bilaterally, Normal air movement Cardiovascular: Regular rate/rhythm, Normal S1 S2 Gastrointestinal: Normal bowel sounds, No tenderness Musculoskeletal: No tenderness Integumentary: No rashes Neurological: Normal gait, Normal speech, Normal strength at 5/5 x4 extr, Normal tone, Normal affect Lymphatics: No axilla or inguinal lymphadenopathy - Studies Laboratory Data (last 24 hrs) 01/27/21 18:45: PT 17.0 H, INR 1.47, APTT 35.3 01/27/21 18:45: WBC 10.20, Hgb 10.8 L, Hct 32.4 L, Plt Count 291 01/27/21 18:45: Sodium 133 L, Potassium 5.1, BUN 46 H, Creatinine 2.55 H, Glucose 481 H*, Total Bilirubin 0.8, AST 21, ALT 21, Alkaline Phosphatase ND, Lipase 196 Assessment and Plan - Problems (Diagnosis) (1) CHF exacerbation Current Visit: Yes Status: Acute Plan: Will hold off on diuresis. Till seen by neprhology Not sure if the troponin elevation is true. Considering her renal function. The patient Will be seen by nephrology and cardiology. Will order an echo. daily I's and O's Qualifiers: Heart failure type: unspecified Qualified Code(s): I50.9 - Heart failure, unspecified (2) DM2 (diabetes mellitus, type 2) Current Visit: Yes Status: Chronic Plan: Will restart her on levemir. low dose sliding scale. will consider farixiga as it has cardioprotective effects and will not damage the kidney. Qualifiers: Diabetes mellitus senior care insulin use: with senior care use Diabetes mellitus complication detail: with nephropathy (3) CKD stage 4 due to type 2 diabetes mellitus Current Visit: Yes Status: Acute Plan: Consult to Dr. To. Will see if we can get any previous creatines. We have sent for her records from [facility]. Discharge Plan: Home Plan to discharge in: Greater than 2 days - Advance Directives Does patient have a Living Will: Yes Does patient have a Durable POA for Healthcare: Yes - Code Status/Comfort Care Code Status Assessed: Yes Code Status: Full Code Physician Review: Patient Assessed, Agree with Above Assessment and Plan Critical Care: No Time Spent Managing Pts Care (In Minutes): 45
[2021-01-28] MEDS ORDERED: ONDANSETRON 4 MG/2 ML VIAL IV PRN (12:12)
--- NOTE | 2021-01-28 12:58 | P.CNS ---
Reason for Consult: LEE ANN on CKD Primary Care Provider: Gareth Chief Complaint: chf exacerbation. History of Present Illness: 80F w/ PMHx of CKD4 2/2 DM, DM2 w/ hx of DKA, who p/w SOB admitted for CHF exacerbation. Has trop leak, elevated BNP, & inc SCr Baseline SCr is 1.6 as of Dec 2020. Allergies Sulfa (Sulfonamide Antibiotics) Allergy (Intermediate, Verified 01/28/21 01:12) Nausea/Vomiting/flu like symptoms Home Medications: Apixaban [Eliquis] 2.5 mg PO BID 01/28/21 Atorvastatin Calcium [Lipitor] 80 mg PO BEDTIME 01/28/21 Dulaglutide [Trulicity] 0.75 mg SQ EVERY 7TH DAY 01/28/21 Furosemide [Lasix] 40 mg PO DAILY 01/28/21 Levothyroxine [Synthroid] 88 mcg PO [id number] 01/28/21 Metoprolol Succinate [Toprol Xl] 50 mg PO BID 01/28/21 Nifedipine [Procardia Xl] 60 mg PO DAILY 01/28/21 Sodium Bicarbonate 650 mg PO TID 01/28/21 - Past Medical/Surgical History Diabetic: Yes -: Diabetes mellitus type 2 insulin-dependent -: Hypothyroidism -: Atrial fibrillation not on chronic anti coagulation therapy -: COPD -: HTN -: History of MAC pulmonary infection -: Back surgery -: Hysterectomy -: Bladder suspension -: Benign tumor removed from right arm -: Tonsillectomy -: Thyroid nodule removed with some thyroid Psychosocial/ Personal History: , 4-children, She does not work. - Family History Father Medical History: Heart disease, Diabetes Notes: Sister Medical History: Diabetes Mother Medical History: Diabetes Brother Medical History: Diabetes - Social History Alcohol use: No CD- Drugs: No Caffeine use: No Place of Residence: Home Review of Systems General: Weakness Eyes: Unremarkable ENT: Unremarkable Respiratory: Shortness of Breath Cardiovascular: Unremarkable Gastrointestinal: Unremarkable Genitourinary: Unremarkable Musculoskeletal: Unremarkable (Gen weakness) Integumentary: As per HPI Neurological: Weakness Lymphatics: Unremarkable Physical Examination Temp Pulse Resp BP Pulse Ox 97.0 F 77 18 148/68 H 94 01/28/21 12:07 01/28/21 12:07 01/28/21 12:07 01/28/21 12:07 01/28/21 12:07 General: Other (Appears as stated age) HEENT: Atraumatic, Normocephalic Neck: Supple, Without JVD or thyroid abnormality Respiratory: Normal air movement Cardiovascular: No edema Gastrointestinal: Normal bowel sounds, Non-distended Musculoskeletal: No clubbing Integumentary: No rashes Neurological: Normal tone Lymphatics: No axilla or inguinal lymphadenopathy Urinary: Other (No johns ) External genitalia: Deferred Rectal: Deferred Laboratory Data (last 24 hrs) 01/27/21 18:45: PT 17.0 H, INR 1.47, APTT 35.3 01/27/21 18:45: WBC 10.20, Hgb 10.8 L, Hct 32.4 L, Plt Count 291 01/27/21 18:45: Sodium 133 L, Potassium 5.1, BUN 46 H, Creatinine 2.55 H, Glucose 481 H*, Total Bilirubin 0.8, AST 21, ALT 21, Alkaline Phosphatase ND, Lipase 196 Conclusions/Impression: # LEE ANN likely 2/2 prerenal state Baseline SCr is 1.6 as of Dec 2020 Stover po fluid intake Monitor renal panel F/u urine chem & renal US # Acute decompensated HF IV lasix Dietary salt restriction # DM2 Per primary team
[2021-01-28 14:31] LABS: Urine Appearance CLEAR; Urine Bilirubin NEGATIVE (NEG); Urine Blood TRACE (NEG); Urine Color YELLOW; Urine Glucose NEGATIVE (NEG); Urine Protein 1+ (NEG); Urine Specific Gravity <=1.005 (1.005-1.030); Urine Urobilinogen 0.2 mg/dL (0.2-1.0)
[2021-01-28 14:41] LABS: Urine Bacteria NONE SEEN /HPF (<20); Urine RBC <5 /HPF (NONE SEEN)
--- NOTE | 2021-01-28 15:14 | RAD REPORT ---
EXAM DESCRIPTION: US - Renal Ultrasound-Complete - 01/28/2021 2:53 pm CLINICAL HISTORY: assess for obstruction or CKD changes Flank pain COMPARISON: Abdomen Exam Complete dated 04/04/2016 FINDINGS: Both kidneys are mildly echogenic bilaterally. The right kidney measures 9.7 x 4.8 x 3.5 cm. No hydronephrosis, focal mass or perinephric fluid. The left kidney measures 8.6 x 4.1 x 3.9 cm. No hydronephrosis, focal mass or perinephric fluid. The urinary bladder is incompletely distended without gross abnormality seen. IMPRESSION: Mildly echogenic kidneys bilaterally compatible with underlying medical renal disease.
[2021-01-28 15:18] LABS: Urine Protein/Creatinine Ratio 2.63 ratio (<0.15)
[2021-01-28] MEDS ORDERED: ENOXAPARIN 40 MG/0.4 ML SQ SCH (17:00)
[2021-01-28] MEDS: ATORVASTATIN 80 MG TAB PO SCH (20:51)
[2021-01-29 03:11] LABS: MPV 9.3 fL (7.6-11.3)
[2021-01-29 04:21] LABS: Platelet Estimate INCR
[2021-01-29 04:22] LABS: Platelets, Giant SEEN
[2021-01-29] MEDS: LEVOTHYROXINE SOD 0.088 MG TAB PO SCH (05:48)
[2021-01-29] MEDS: HEPARIN/D5W 25,000 UNIT/500 ML BAG IV SCH (05:49)
[2021-01-29] MEDS: INSULIN -REGULAR HUMAN 50 UNIT/0.5 ML ML SQ SCH ×4 (07:30→20:42)
[2021-01-29] MEDS: NIFEDIPINE XL 60 MG TABLET PO SCH (08:51)
[2021-01-29] MEDS: INSULIN GLARGINE 100 UNITS/ML SQ SCH (08:52)
[2021-01-29] MEDS: ASPIRIN 81 MG CHEWABLE TABLET PO SCH (08:52)
[2021-01-29] MEDS: FUROSEMIDE 20 MG/ 2ML VIAL IV SCH ×2 (08:52→17:39)
--- NOTE | 2021-01-29 09:34 | P.PN ---
Subjective Date of Service: 01/30/21 Primary Care Provider: Gareth Chief Complaint: chf exacerbation. Subjective: No new changes Physical Examination - Vital Signs Temperature: 97.4 F Blood Pressure: 120/57 Pulse: 92 Respirations: 20 Pulse Ox (%): 96 - Physical Exam General: In no apparent distress HEENT: Atraumatic, Normocephalic Neck: Supple, Without JVD or thyroid abnormality Respiratory: Clear to auscultation bilaterally Cardiovascular: No murmurs Gastrointestinal: Soft and benign, Non-distended Musculoskeletal: No clubbing Assessment And Plan - Plan # LEE ANN likely 2/2 prerenal state Improving, SCr improving to 1.98 Baseline SCr is 1.6 as of Dec 2020 Renal US showed asymmetric-sized kidneys but no obstrxn Cont liberal po fluid intake Monitor renal panel # +Serum & Urine Protein Gap, rule out paraprotein dse Check spep w/ FAITH, K:L SFLC, random urine UPEP # Acute decompensated HF Cont lasix IV Dietary salt restriction # DM2 Per primary team Physician Review: Patient Assessed, Agree with Above Assessment and Plan
--- NOTE | 2021-01-29 11:20 | P.PN ---
Subjective Date of Service: 01/29/21 Primary Care Provider: Gareth Chief Complaint: chf exacerbation. Subjective: No new changes Review of Systems 10-point ROS is otherwise unremarkable Physical Examination - Vital Signs Temperature: 97.4 F Blood Pressure: 120/57 Pulse: 92 Respirations: 20 Pulse Ox (%): 96 - Physical Exam General: Alert, In no apparent distress HEENT: Atraumatic, PERRLA, EOMI Neck: Supple, JVD not distended Respiratory: Clear to auscultation bilaterally, Normal air movement Cardiovascular: Regular rate/rhythm, Normal S1 S2 Gastrointestinal: Normal bowel sounds, No tenderness Musculoskeletal: No tenderness Integumentary: No rashes Neurological: Normal speech, Normal tone, Normal affect Lymphatics: No axilla or inguinal lymphadenopathy Assessment & Plan - Problems (Diagnosis) (1) CHF exacerbation Current Visit: Yes Status: Acute Plan: Will hold off on diuresis. Till seen by neprhology Not sure if the troponin elevation is true. Considering her renal function. The patient Will be seen by nephrology and cardiology. Will order an echo. daily I's and O's Qualifiers: Heart failure type: unspecified Qualified Code(s): I50.9 - Heart failure, unspecified (2) DM2 (diabetes mellitus, type 2) Current Visit: Yes Status: Chronic Plan: Will restart her on levemir. low dose sliding scale. will consider farixiga as it has cardioprotective effects and will not damage the kidney. Qualifiers: Diabetes mellitus terminal operator insulin use: with assisted use Diabetes mellitus complication detail: with nephropathy (3) CKD stage 4 due to type 2 diabetes mellitus Current Visit: Yes Status: Acute Plan: Consult to Dr. To. Will see if we can get any previous creatines. We have sent for [facility]. Discharge Plan: Home Plan to discharge in: Greater than 2 days - Code Status/Comfort Care Code Status Assessed: No Physician Review: Patient Assessed, Agree with Above Assessment and Plan Critical Care: No Time Spent Managing Pts Care (In Minutes): 25
[2021-01-29 13:04] LABS: Albumin 2.2 g/dL (3.4-5.0); Magnesium 1.6 mg/dL (1.8-2.4); Phosphorus 3.8 mg/dL (2.5-4.9); Potassium 4.1 mmol/L (3.5-5.1)
[2021-01-29] MEDS: ATORVASTATIN 80 MG TAB PO SCH (20:41)
[2021-01-30] MEDS ORDERED: ZOLPIDEM TARTRATE 5 MG TABLET PO ONE (00:08)
[2021-01-30] MEDS ORDERED: ZOLPIDEM TARTRATE 10 MG TABLET ONE (00:33)
[2021-01-30 04:51] LABS: Platelet Estimate ND
[2021-01-30] MEDS: LEVOTHYROXINE SOD 0.088 MG TAB PO SCH (06:59)
[2021-01-30] MEDS: INSULIN -REGULAR HUMAN 50 UNIT/0.5 ML ML SQ SCH ×4 (07:30→20:27)
[2021-01-30] MEDS: NIFEDIPINE XL 60 MG TABLET PO SCH (07:58)
[2021-01-30] MEDS: ASPIRIN 81 MG CHEWABLE TABLET PO SCH (07:58)
[2021-01-30] MEDS: INSULIN GLARGINE 100 UNITS/ML SQ SCH (07:58)
[2021-01-30] MEDS: FUROSEMIDE 20 MG/ 2ML VIAL IV SCH (07:58)
--- NOTE | 2021-01-30 09:05 | P.PN ---
Subjective Date of Service: 01/31/21 Primary Care Provider: Gareth Chief Complaint: chf exacerbation. Subjective: No new changes Physical Examination - Vital Signs Temperature: 97.4 F Blood Pressure: 120/57 Pulse: 92 Respirations: 20 Pulse Ox (%): 96 - Physical Exam General: In no apparent distress HEENT: Atraumatic, Normocephalic Neck: Supple, Without JVD or thyroid abnormality Respiratory: Clear to auscultation bilaterally Cardiovascular: No murmurs Gastrointestinal: Soft and benign, Non-distended Assessment And Plan - Plan # LEE ANN likely 2/2 prerenal state Improving Baseline SCr is 1.6 as of Dec 2020 Renal US showed asymmetric-sized kidneys but no obstrxn Cont liberal po fluid intake Monitor renal panel # +Serum & Urine Protein Gap, rule out paraprotein dse Check spep w/ FAITH, K:L SFLC, random urine UPEP # Acute decompensated HF Elevated trop, may need LHC tomorrow At high risk for contrast nephropathy d/t low GFR, may prophylax via remote ischemic preconditioning 1 hr prior to leaving rm 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
[2021-01-30] MEDS ORDERED: ALBUTEROL 2.5 MG/3 ML NEB SOL NEB PRN (10:00)
[2021-01-30] MEDS ORDERED: IPRATROPIUM BROM 0.5MG/2.5ML NEB PRN (10:00)
[2021-01-30] MEDS: MAGNESIUM CHLORIDE 64 MG TAB PO SCH ×2 (10:00→20:27)
[2021-01-30] MEDS ORDERED: D50W 25 GM/50 ML VIAL IV PRN (10:00)
[2021-01-30] MEDS: HEPARIN/D5W 25,000 UNIT/500 ML BAG IV SCH (10:18)
[2021-01-30] MEDS: FUROSEMIDE 20 MG TABLET PO SCH (16:56)
[2021-01-30] MEDS: ATORVASTATIN 80 MG TAB PO SCH (20:26)
[2021-01-30] MEDS ORDERED: ZOLPIDEM TARTRATE 10 MG TABLET PO ONE (21:47)
[2021-01-31 04:40] LABS: Absolute Lymphocytes (CBC) 1.8 K/uL (0.7-4.9); Basophils % 1.1 % (0-1.3); Hematocrit 28.8 % (36.0-45.0); MPV 9.3 fL (7.6-11.3); RBC Red Blood Cell Count 3.26 M/uL (3.86-4.86)
[2021-01-31 04:51] LABS: Potassium 3.9 mmol/L (3.5-5.1)
[2021-01-31] MEDS: LEVOTHYROXINE SOD 0.088 MG TAB PO SCH (06:00)
[2021-01-31] MEDS: INSULIN -REGULAR HUMAN 50 UNIT/0.5 ML ML SQ SCH ×3 (07:30→16:44)
--- NOTE | 2021-01-31 08:55 | ECHO ---
HEIGHT: 5 ft 4 in WEIGHT: 120 lb 9.6 oz DATE OF STUDY: 01/28/[address]: Ulysses Jaramillo 2-DIMENSIONAL: YES M.MODE: YES DOPPLER: YES COLOR FLOW: YES TDS: NO PORTABLE: NO DEFINITY: NO BUBBLE STUDY: NO DIAGNOSIS: CONGESTIVE HEART FAILURE WITH NSTEMI CARDIAC HISTORY: CATHERIZATION: YES SURGERY: NO PROSTHETIC VALVE: NO PACEMAKER: NO MEASUREMENTS (cm) DIASTOLIC (NORMALS) SYSTOLIC (NORMALS) IVSd 1.0 (0.6-1.2) LA Diam 2.4 (1.9-4.0) LVEF 55-60% LVIDd 3.8 (3.5-5.7) LVIDs 2.4 (2.0-3.5) %FS 38% LVPWd 1.0 (0.6-1.2) Ao Diam 2.4 (2.0-3.7) 2 DIMENSIONAL ASSESSMENT: RIGHT ATRIUM: NORMAL LEFT ATRIUM: NORMAL RIGHT VENTRICLE: NORMAL LEFT VENTRICLE: NORMAL TRICUSPID VALVE: MITRAL VALVE: PULMONIC VALVE: NORMAL AORTIC VALVE: PERICARDIAL EFFUSION: NONE AORTIC ROOT: NORMAL LEFT VENTRICULAR WALL MOTION: NORMAL DOPPLER/COLOR FLOW: SEE BELOW. COMMENTS: NORMAL LEFT VENTRICULAR EJECTION FRACTION 55-60% WITH NORMAL WALL MOTION. MODERATE DIASTOLIC DYSFUNCTION. MODERATE PULMONARY HYPERTENSION WITH RIGHT VENTRICULAR SYSTOLIC PRESSURE OF 45-50 mmHg. MILD MITRAL, TRICUSPID AND AORTIC REGURGITATION. TECHNOLOGIST: Ruben CHIU
[2021-01-31] MEDS ORDERED: ACETYLCYST 20% 800 MG/4 ML VIAL PO SCH (09:00)
[2021-01-31] MEDS: INSULIN GLARGINE 100 UNITS/ML SQ SCH (09:00)
[2021-01-31] MEDS: MAGNESIUM CHLORIDE 64 MG TAB PO SCH (10:02)
[2021-01-31] MEDS: ASPIRIN 81 MG CHEWABLE TABLET PO SCH (10:02)
[2021-01-31] MEDS: NIFEDIPINE XL 60 MG TABLET PO SCH (10:02)
[2021-01-31] MEDS: FUROSEMIDE 20 MG TABLET PO SCH ×2 (10:03→16:43)
--- NOTE | 2021-01-31 10:56 | P.PN ---
Subjective Date of Service: 01/31/21 Primary Care Provider: Gareth Chief Complaint: chf exacerbation. Subjective: No new changes (for angiogram this morning) Review of Systems 10-point ROS is otherwise unremarkable Physical Examination - Vital Signs Temperature: 98.1 F Blood Pressure: 141/71 Pulse: 107 Respirations: 20 Pulse Ox (%): 97 - Physical Exam General: Alert, In no apparent distress HEENT: Atraumatic, PERRLA, EOMI Neck: Supple, JVD not distended Respiratory: Clear to auscultation bilaterally, Normal air movement Cardiovascular: Regular rate/rhythm, Normal S1 S2 Gastrointestinal: Normal bowel sounds, No tenderness Musculoskeletal: No tenderness Integumentary: No rashes Neurological: Normal speech, Normal tone, Normal affect Lymphatics: No axilla or inguinal lymphadenopathy Assessment & Plan - Problems (Diagnosis) (1) CHF exacerbation Current Visit: Yes Status: Acute Plan: Will hold off on diuresis. Till seen by neprhology Not sure if the troponin elevation is true. Considering her renal function. The patient Will be seen by nephrology and cardiology. Will order an echo. daily I's and O's 01/31 Plans for cath today Qualifiers: Heart failure type: unspecified Qualified Code(s): I50.9 - Heart failure, unspecified (2) DM2 (diabetes mellitus, type 2) Current Visit: Yes Status: Chronic Plan: Will restart her on levemir. low dose sliding scale. will consider farixiga as it has cardioprotective effects and will not damage the kidney. Qualifiers: Diabetes mellitus mcfp insulin use: with mcfp use Diabetes mellitus complication detail: with nephropathy (3) CKD stage 4 due to type 2 diabetes mellitus Current Visit: Yes Status: Chronic Plan: she is almost at her baseline of 1.75 Discharge Plan: Home Plan to discharge in: 24 Hours - Code Status/Comfort Care Code Status Assessed: No Physician Review: Patient Assessed, Agree with Above Assessment and Plan Critical Care: No Time Spent Managing Pts Care (In Minutes): 20
[2021-01-31] MEDS ORDERED: NA CHLORIDE 0.9% 1,000 ML IV SCH (11:00)
[2021-01-31] MEDS ORDERED: NA CHLORIDE 0.9% 500 ML ONE (11:08)
[2021-01-31] MEDS ORDERED: HEPA 1000U/500MLS 2,000 UNIT/1,000 ML BAG IV ONE (11:41)
[2021-01-31] MEDS ORDERED: FENTANYL CITR 100 MCG/2 ML ONE (11:42)
[2021-01-31] MEDS ORDERED: MIDAZOLAM HCL 2 MG/2 ML INJ ONE (11:42)
[2021-01-31] MEDS ORDERED: HEPARIN 5000 UNIT/ML 1 ML VIAL ONE (11:42)
[2021-01-31] MEDS ORDERED: ATROPINE SULF 1 MG/10 ML SYR IV ONE (11:43)
[2021-01-31] MEDS ORDERED: VERAPAMIL HCL 10 MG/4 ML VIAL IV ONE (11:43)
[2021-01-31] MEDS ORDERED: TICAGRELOR 90 MG TABLET PO ONE (11:43)
[2021-01-31] MEDS ORDERED: METOPROLOL TARTRATE 5 MG/5 ML INJ IV ONE (12:26)
--- NOTE | 2021-01-31 13:31 | OP ---
Date of Procedure: 01/31/2021 Surgeon: LUDA CASILLAS Procedure Performed: Selective coronary angiogram. Access: Right radial artery 6-Martiniquais closed with TR band. Indication: Non-ST elevation myocardial infarction. Complications: None. Bleeding: Less than 10 mL. Description Of Procedure: After risks, benefits, and alternatives were explained, the patient agreed to procedure and signed informed consent. The patient was brought to the cardiac catheterization la boratory, prepped and draped in usual sterile fashion. Then, we accessed right radial artery using [email or web address] micropuncture kit and placed 6-Martiniquais slender sheath and took a 5-Martiniquais [place] catheter 4.0 into the aortic root over a J-wire, engaged left main, the right coronary artery and took standard vi ews and then the catheter was pushed over the wire into the LV, took LVEDP and upon pullback, there w as no difference in gradient. We then removed the catheter and sheath and placed TR band. Findings: 1.Left main is very short. No disease. 2.LAD has 3 areas of discrete lesions. The proximal 1 is more than 90%, mid lesion was 90%, mid to distal was 90% heavily calcified. 3.Left circumflex is large, dominant with mid 95%. 4.RCA, small, non-dominant. No disease. LVEDP is 5 mmHg. Conclusions: 1.Severe multivessel disease. 2.Normal LVEDP. Plan: Transfer for bypass evaluation. SR/MODL Voice ID: [id number] Report ID: [id number]
[2021-01-31 15:42] VITALS: O2SAT 97
[2021-01-31 16:45] VITALS: BP 141/73
[2021-01-31 17:14] VITALS: TEMP 97.7
--- NOTE | 2021-01-31 23:22 | PN ---
Date of Progress Note: 01/31/2021 Chief Complaint: Coronary artery disease, hypertensive heart and kidney disease, chronic kidney dise ase. Subjective: The patient has CHF exacerbation and developed acute on chronic kidney injury secondary to prerenal state. Serum creatinine baseline in December was 1.6. Renal ultrasound showed symmetric size kidney, but no obstructive uropathy. The patient is on p.o. intake. She is to have cardiac ca theterization. Mucomyst was started to prevent contrast-induced nephropathy. The patient will start mild hydration with IV fluids. Review of Systems: Denies chest pain or palpitation. Denies nausea or vomiting. Physical Examination: Lungs: Diminished breath sounds at bases. Heart: S1, S2. Abdomen: Soft, benign. Extremities: No edema. Impression And Plan: 1.Acute on chronic kidney injury, cardiorenal syndrome. Continue to monitor blood pressure. Adjust medication. Continue beta loren for congestive heart failure. The patient at this point was star rosalia on mild hydration to prevent contrast-induced nephropathy. Continue Mucomyst. 2.Hypomagnesemia. Replacement was ordered. 3.Igr-DQ-eifdxmass myocardial infarction. The patient is undergoing cardiac catheterization. [facility] recommendation from Cardiology. THEO/MODL Voice ID: [id number] Report ID: [id number]
--- NOTE | 2021-02-01 08:25 | P.DS ---
Admission Date: 01/27/21 Discharge Date: 01/31/21 Primary Care Provider: Gareth Disposition: TRANSFER TO [facility] Discharge Condition: FAIR Reason for Admission: chf exacerbation. - Problems (1) CHF exacerbation Status: Acute Qualifiers: Heart failure type: unspecified Qualified Code(s): I50.9 - Heart failure, unspecified (2) DM2 (diabetes mellitus, type 2) Status: Chronic Qualifiers: Diabetes mellitus snf insulin use: with long goods drier use Diabetes mellitus complication detail: with nephropathy (3) CKD stage 4 due to type 2 diabetes mellitus Status: Chronic Brief History of Present Illness: Patient is a recent patient of mine. She has a history of diabetes. Was recently admitted to [facility] for dka. The patient was to follow up with card iology and nephrology. Started with me on Sunday. We were to switch her from 4 injections to one She has been having difficulty taking her medications. She has been getting confused, sob and more sleepy per her daughter. Was to come in to the office. However her daughter went over to her house and found her blood sugar was in the 500 and she was short of breath. Found to have elevated sugars in the ER. She had a troponin bump and also signs of chf exacerbation. We had not gotten her records from [facility]. She has stage 4 ckd. this morning she is resting comfortably in bed. The sugars are improved. She is on a heparin drip Hospital Course: Patient was admitted for chf exacerbation. She has mild diastolic dysfunction. Did well with diuretics and insulin to control her sugar. She had a cath today on 01/30. Unfortunately she was found to have sever multi vessel disease. She needs a cabg. Will be transfered to [facility] for the procedure. Thank you for allowing me to take part in her care. Vital Signs/Physical Exam: Temp Pulse Resp BP Pulse Ox 97.7 F 103 H 18 141/73 H 96 01/31/21 16:00 01/31/21 16:43 01/31/21 16:00 01/31/21 16:43 01/31/21 16:00 General: Alert, In no apparent distress HEENT: Atraumatic, PERRLA, EOMI Neck: Supple, JVD not distended Respiratory: Clear to auscultation bilaterally, Normal air movement Cardiovascular: Regular rate/rhythm, Normal S1 S2 Gastrointestinal: Normal bowel sounds, No tenderness Musculoskeletal: No tenderness Integumentary: No rashes Neurological: Normal speech, Normal tone, Normal affect Lymphatics: No axilla or inguinal lymphadenopathy Laboratory Data at Discharge: WBC Cancelled 01/31/21 06:00 Hgb Cancelled 01/31/21 06:00 Hct Cancelled 01/31/21 06:00 Plt Count Cancelled 01/31/21 06:00 PT 17.0 SECONDS (9.5-12.5) H 01/27/21 18:45 INR 1.47 01/27/21 18:45 APTT 58.9 SECONDS (24.3-36.9) H 01/31/21 04:06 Sodium 138 mmol/L (136-145) 01/31/21 04:06 Potassium 3.9 mmol/L (3.5-5.1) 01/31/21 04:06 BUN 33 mg/dL (7-18) H 01/31/21 04:06 Creatinine 1.75 mg/dL (0.55-1.3) H 01/31/21 04:06 Glucose 116 mg/dL (74-106) H 01/31/21 04:06 Phosphorus 3.8 mg/dL (2.5-4.9) 01/29/21 10:57 Magnesium 1.6 mg/dL (1.8-2.4) L 01/29/21 10:57 Total Bilirubin 0.8 mg/dL (0.2-1.0) 01/27/21 18:45 AST 21 U/L (15-37) 01/27/21 18:45 ALT 21 U/L (12-78) 01/27/21 18:45 Alkaline Phosphatase ND 01/27/21 18:45 Troponin I 2.28 ng/mL (0.0-0.045) H* 01/28/21 05:19 Triglycerides 96 mg/dL (<150) 01/29/21 02:55 Cholesterol 115 mg/dL (<200) 01/29/21 02:55 HDL Cholesterol 52 mg/dL (40-60) 01/29/21 02:55 Cholesterol/HDL Ratio 2.21 01/29/21 02:55 Lipase 196 U/L (73-393) 01/27/21 18:45 Home Medications: Apixaban [Eliquis] 2.5 mg PO BID 01/28/21 Atorvastatin Calcium [Lipitor] 80 mg PO BEDTIME 01/28/21 Dulaglutide [Trulicity] 0.75 mg SQ EVERY 7TH DAY 01/28/21 Furosemide [Lasix] 40 mg PO DAILY 01/28/21 Levothyroxine [Synthroid] 88 mcg PO [id number] 01/28/21 Metoprolol Succinate [Toprol Xl] 50 mg PO BID 01/28/21 Nifedipine [Procardia Xl] 60 mg PO DAILY 01/28/21 Sodium Bicarbonate 650 mg PO TID 01/28/21 Diet: ADA Followup: Kapil Servin MD [Primary Care Provider] - Physician Review: Patient Assessed, Agree with Above Assessment and Plan Time spent managing pt's care (in minutes): 45
[2021-02-02 04:43] LABS: Albumin, (SPE) 2.4 g/dL (3.8-4.8); Alpha-1-Globulins 0.6 g/dL (0.2-0.3); Alpha-2-Globulins 1.3 g/dL (0.5-0.9); Gamma Globulins 1.2 g/dL (0.8-1.7); INTERPRETATION REPORT
--- NOTE | 2021-03-10 15:00 | CON ---
Reason For Consultation: Elevated troponin. History Of Present Illness: This is an elderly female, who presented to the emergency room with shor tness of breath and palpitations, found to be in atrial fibrillation with RVR that was controlled and found to have signs of congestive heart failure. Troponin was drawn, it was elevated. She declines having any chest pain at the present time. Past Medical History: AFib, hypertension, hyperlipidemia. Medications: Refer to reconciliation sheet for detailed list. Allergies: NO KNOWN DRUG ALLERGIES. Family History: No premature coronary artery disease or cancer. Social History: She does not smoke or drink. Does not use any drugs. Review of Systems: All systems reviewed and they were negative except what mentioned in the HPI. Physical Examination: Vital Signs: Reviewed. Head and Neck: Pupils are equal, reactive to light. Intact eye movements. No JVD. No cervical lym phadenopathy. Neck: Supple. Thyroid is not enlarged. Lungs: Clear to auscultation bilaterally. No rhonchi, rales, or crackles. No accessory muscle use. Heart: Irregularly irregular with systolic murmur in the aortic area. Abdomen: Soft, nontender. Bowel sounds positive. No organomegaly. No masses or hernia. No rigidi ty or rebound. Extremities: Trace edema bilaterally. No clubbing or cyanosis. Intact pulses. Skin: No rash noted. Neurologic: Alert, awake, oriented x3. No acute focal deficits appreciated. Investigations: Labs were reviewed. Assessment And Recommendations: 1.Non-ST elevation myocardial infarction. We will discontinue the Eliquis and put her on heparin dr ip and aspirin. Plan for coronary angiogram in the morning and resend her cardiac enzymes and obtain echocardiogram. 2.Atrial fibrillation. Rate is controlled at the present time. Continue beta-loren and obtain an echocardiogram. Thank you for the consult. /DULCE MARIA Voice ID: [id number] Report ID: [id number]
== END 2021-01-31 17:46 | disposition short-term general hospital (02) | DRG 280 ==
LOC: ER 17:50 → ERHOLD 21:07 → 2ND 23:18
PROVIDERS: ADMIT Internal Medicine; ATTEND Internal Medicine
PROC: 4A023N7 Measurement of Cardiac Sampling and Pressure, Left Heart, Percutaneous Approach (ICD-10-PCS; principal; 2021-01-31)
PROC: B2111ZZ Fluoroscopy of Multiple Coronary Arteries using Low Osmolar Contrast (ICD-10-PCS; 2021-01-31)
DX: I13.0 Hypertensive heart and chronic kidney disease with heart failure and stage 1 through stage 4 chronic kidney disease, or unspecified chronic kidney disease (principal); I21.4 Non-ST elevation (NSTEMI) myocardial infarction; I50.33 Acute on chronic diastolic (congestive) heart failure; N18.4 Chronic kidney disease, stage 4 (severe); N17.9 Acute kidney failure, unspecified; E11.22 Type 2 diabetes mellitus with diabetic chronic kidney disease; J44.9 Chronic obstructive pulmonary disease, unspecified; E83.42 Hypomagnesemia; E03.9 Hypothyroidism, unspecified; Z86.73 Personal history of transient ischemic attack (TIA), and cerebral infarction without residual deficits; Z88.1 Allergy status to other antibiotic agents; Z79.01 Long term (current) use of anticoagulants; Z90.710 Acquired absence of both cervix and uterus; Z87.891 Personal history of nicotine dependence; Z79.4 Long term (current) use of insulin; Z79.890 Hormone replacement therapy; Z79.899 Other long term (current) drug therapy; Z20.822 Contact with and (suspected) exposure to COVID-19
CPT/HCPCS: 36415; 71045; 76770; 80048; 80061; 80069; 80076; 81001; 82010; 82550; 82570; 82947; 83036; 83605; 83690; 83735; 83880; 84132; 84145; 84156; 84165; 84300; 84443; 84484; 85025; 85049; 85610; 85730; 86334; 87040; 93005; 93306; 93458; 96365; 96366; 96367; 96375; 99285; C1893; J0456; J0696; J1644; J1815; J1940; J2250; J2405; J3010; J7030; J7040; J7050; U0003

== ENCOUNTER 2021-05-16 17:44 | Emergency (ER) | payer OTHER ==
--- OUTSIDE RECORDS SUMMARY | 2021-05-16 18:23 | XMS REPORT | Continuity of Care Document ---
:1940 Author Organization [facility] t Address [address] [place] [address] [address]. [address] [place] [address] Care Team Providers Name Role Phone Randall Diaz MD Primary Care Physician Lewis Rodriguez Attending Clinician Unavailable Brandon Attending Clinician Unavailable Carlos James Attending Clinician Unavailable Tiago BECK, Violeta Attending Clinician Unavailable Aixa BRITT Attending Clinician Fawn Saleh MD Attending Clinician AIXA Attending Clinician Unavailable Morales Cunha MD Attending Clinician Beth Boo MD Attending Clinician Irina BRITT Attending Clinician Bucky BERTRAND Attending Clinician Provider Attending Clinician Unavailable MD IRINA Attending Clinician Unavailable Loyda Linares MD Attending Clinician Asha LINARES Attending Clinician Unavailable Meme Servin Admitting Clinician Unavailable Aixa Admitting Clinician Unavailable FAWN SALEH Admitting Clinician Unavailable IRINA Admitting Clinician Unavailable MD IRINA Admitting Clinician Unavailable Asha LINARES Admitting Clinician Unavailable Payers Payer Name Policy Type Policy Effective Date Expiration Date Sour ce Number FADY MEDICAREAETNA 2020 [place]/PPO 0 00:00:00 Gabrielle t [id number] AETNA - MEDICARE [id number] [address] [facility] - MGD CAREAETNA 0 00:00:[address] MEDICARE HMO POS [id number] [place] [id number] Problems Condition Condition Condition Status Onset Resolution Last Treating Co mments Source Name Details Category Date Date Treatment Clinician Date CAD CAD Disease Active [facility] ([facility]onary (coronary 3-22 [facility] - artery artery 00:00: Medical disease) disease) 00 Center DM II DM II Disease Active [facility] (diabetes (diabetes 3-22 [facility] - mellitus, mellitus, 00:00: Medi moriah type II), type II), 00 Cent er controlled controlled Hypothyroi Hypothyroi Disease Active [facility] dism dism 3-22 [facility] - 00:00: Medical 00 [place] A-fib A-fib Disease Active [facility] 3[facility]22 [facility] - 00:[facility]: Medical 00 Center COPD COPD Disease Active [facility] (chronic (chronic 3-22 [facility] - obstructiv obstructiv 00:00: Me dical e e 00 Center pulmonary pulmonary disease) disease) HTN HTN Disease Active [facility] (hypertens (hypertens 3-22 Mayra kes - ion) ion) 00:00: Medical 00 Center TIA TIA Disease Active [facility] (transient (transient 3-06 Me thodi ischemic ischemic 00:00: st attack) attack) 00 Allergies, Adverse Reactions, Alerts Allergy Allergy Status Severity Reaction(s) Onset Inactive Treating Comm ents Source Name Type Date Date Clinician Sulfa DA Active [place] [facility] (Sulfona 4-12 [place] mide 00:00: d Antibiot 00 Medical ics) Center Baclofen Propensi Active Hallucinatio [facility] ty to ns 3-06 [facility] adverse 00:00: st reaction 00 s to drug Sulfa Propensi Active GI nausea [facility] (Sulfona ty to Intolerance 3-06 Met hodi mide adverse 00:00: st Antibiot reaction 00 ics) s to drug Sulfa Propensi Active Feeling [facility] (Sulfona ty to 2-12 of [facility] - mide adverse 00:00: malaise Medical Antibiot reaction 00 Center ics) s Social History Social Habit Start Date Stop Date Quantity Comments Source History [facility] - Alcohol Std Drinks Medica Center History [facility] - Alcohol Binge Medical José Miguel ter Sex Assigned At [facility] St Mayra kes [facility] Tobacco use and 2021-02-04 2021-02-[address] Mayra kes - exposure 00:00:00 00:00:00 [facility] Alcohol intake 2021-02-04 2021-02-[address] [facility] es - 00:00:00 00:00:00 non-drinker of Medical Ce nter alcohol (finding) History [facility] 2018-12-24 2018-12-[address] [facility] - Alcohol Frequency 00:00:00 00:00:00 [facility] History of tobacco 1967-11-12 Current sm[facility] - use 00:00:00 [facility] Smoking Status Start Date Stop Date Source Former smoker 2021-02-04 00:00:00 2021-02-04 00:00:[address] [facility] Never smoker [facility] t Medications Ordered Filled Start Stop Current Ordering Indication Dosage Frequency Signature Comments Components Source Medication Medication Date Date Medication? Clinician (SIG) Name Name aspirin 81 2021- No 81mg QD Take [address] MG EC 3-30 03-30 tablet (81 [facility] - tablet 00:00: 23:59 mg total) Medic al 00 :00 by mouth Center daily. apixaban Yes 2.5mg Q.5D Take 2.[address] (Eliquis) 3-29 mg by [facility]ukes - 2.5 mg Tab 20:24: mouth 2 Medi moriah tablet 32 (two) Center times daily. dulaglutide Yes .75mg Q7D Inject [facility] (Trulicity) 3-29 0.75 mg [facility]ukes - 0.75 mg/0.5 20:24: subcutaneo Medical mL PnIj 32 usly once Center a week. insulin Yes 20U QD Inject 20 [facility] detemir 3-29 Units [facility]ukes - (LEVEMIR) 20:24: subcutaneo Me dical 100 32 usly Center Units/mL daily. syringe levothyroxi Yes 88ug Take [address] ne 3-29 mcg by [facility]ukes - (SYNTHROID, 20:24: mouth Medic al LEVOTHROID) 32 Every Center 88 MCG morning on tablet an empty stomach. NIFEdipine Yes 60mg QD Take [address] (ADALAT CC) - by mouth Luke s - 30 MG 24 hr 20:24: daily. Medi moriah tablet 32 Center sodium Yes 1{tbl} Q.[id number] Take [address] bicarbonate 02-07 [id number] tablet by [facility] - 650 MG 20:24: 3D mouth 3 Medical tablet 32 (three) Center times daily. atorvastati 2020- No 80mg QD Take [address] n (LIPITOR) 02-07- by mouth Melissa es - 80 MG 10:53: 00:00 daily. Medical tablet 24 :00 Center cephalexin 2020- No 250mg QD Take [address] (KEFLEX) 02-07- mg by [facility] - 250 MG 10:53: 00:00 mouth Medical capsule 24 :00 daily. Center furosemide 2020- No 40mg QD Take [address] [facility] (LASIX) 40 02-07- by mouth Luke s - MG tablet 10:53: 00:00 daily. Medic al 24 :00 Center metoprolol 2020- No 50mg Q.5D Take [address] succinate 02-07- by mouth 2 Melissa es - (TOPROL-XL) 10:53: 00:00 (two) Medi moriah 50 MG 24 hr 24 :00 times Center tablet daily. ticagrelor Yes 90mg Q.5D Take 1 [facility] (BRILINTA) - tablet (90 Melissa es - 90 mg Tab 00:00: mg total) Med ical tablet 00 by mouth 2 Center (two) times daily. atorvastati 2021- No 40mg QD Take [address] n (LIPITOR) 02-07 tablet (40 L ukes - 40 MG 00:00: 23:59 mg total) Medica l tablet 00 :00 by mouth Center nightly. prednisoLON 2020- No 1[drp] Q.25D [address] E acetate 01-31 (four) [facility]ukes - (PRED 19:38: 00:00 times Medical FORTE) 1 % 36 :00 daily. [place] ophthalmic suspension moxifloxaci 2020- No 1[drp] Q.[id number] [address] [facility] (VIGAMOX) 01-31 [id number] (three) [facility] - 0.5 % 19:38: 00:00 3D times Medical ophthalmic 33 :00 daily. [place] solution metoprolol 2020- No 25mg Q.5D Take [address] (LOPRESSOR) 01-31 by mouth 2 L ukes - 25 MG 19:38: 00:00 (two) Medical tablet 30 :00 times Center daily. metFORMIN 2020- No 1000mg Take 1,[address] (GLUCOPHAGE 01-31 mg by [facility]ukes - ) 1000 MG 19:38: 00:00 mouth 2 Medi moriah tablet 24 :00 (two) Center times daily with breakfast and dinner. levothyroxi 2020- No Take by I St ne 75 mcg 01-31 mouth. [facility] - Cap 19:38: 00:00 Medical 18 :00 [place] insulin 2020- No QD Inject [facility] detemir 01-31 subcutaneo [place] - U-100 19:38: 00:00 [facility] Medical (LEVEMIR) 15 :00 nightly. [place] 100 unit/mL injection hypertonic 2020- No 1[drp] [address] ophthalmic 01-31 needed. [facility] - solution 19:38: 00:00 Medical (GUILHERME 128) 11 :00 [place] 5 % ophthalmic solution diflupredna 2020- No Apply to [facility] te 01-3122 eye(s). [facility] - (DUREZOL) 19:38: 00:00 Medical 0.05 % Drop 02 :00 Center insulin Yes 2U Q.[id number] Inject 2 [place] lispro 01-21 [id number] Units Method i (HumaLOG 00:00: 3D under the st KwikPen 00 skin 3 Insulin) (three) 100 unit/mL times a injection day before pen meals. SITagliptin Yes 25mg QD Take 1 [place] (JANUVIA) 01-21 tablet (25 Meth julianna 25 MG 00:00: mg total) st tablet 00 by mouth daily. furosemide 2020- No 40mg QD Take 1 [place] (LASIX) 40 01-21 tablet (40 Me thodi mg tablet 00:00: 23:59 mg total) st 00 :00 by mouth daily for 30 days. NIFEdipine 2020- No 60mg QD Take 1 [place] XL 01-21 tablet (60 [facility]i (PROCARDIA 00:00: 23:59 mg total) s t XL) 60 MG 00 :00 by mouth 24 hr daily for tablet 30 days. ciprofloxac 2020- No 500mg Q24H Take 1 [place] (CIPRO) 01-2114 tablet Method i 500 MG 00:00: 23:59 ([address] tablet 00 :00 total) by mouth daily for 2 days. linaGLIPtin 2020- No 5mg QD Take [address] (TRADJENTA) 01-21 tablet (5 Me thodi 5 mg tablet 00:00: 00:00 mg total) st 00 :00 by mouth daily with breakfast for 30 days. metFORMIN 2020- No 1000mg QD Take 1,000 [place] XR 01-20 mg by Methodi (GLUCOPHAGE 19:51: 00:[address] -XR) 500 mg 11 :00 daily with 24 hr breakfast. tablet metoprolol 2020- No 25mg Q.5D Take 25 mg [place] succinate 01-20 by mouth 2 Met hodi XL 19:51: 00:00 (two) st (TOPROL-XL) 11 :00 times a 25 mg 24 hr day. tablet cephalexin Yes 250mg QD Take 250 [place] (KEFLEX) 3-11 mg by Methodi 250 MG 19:51: mouth st capsule 08 daily. termination clerk therapy for UTI levothyroxi Yes 88ug QD Take 88 [place] ne 3-11 mcg by Methodi (SYNTHROID) 19:51: mouth st 88 mcg 08 daily. tablet insulin 2020- No 15U Q.5D Inject 15 [place] detemir 01-20 03-11 Units Methodi U-100 18:08: 00:[address] (LEVEMIR) 45 :00 skin 2 100 unit/mL (two) injection times a day. insulin Yes 20U QD Inject 20 [place] detemir 3-11 Units Methodi U-100 00:00: under the st (LEVEMIR) 00 skin 100 unit/mL daily. injection metoprolol 2020- No 50mg Q.5D Take 1 [place] succinate 01-20 tablet (50 Met hodi XL 00:00: 23:59 mg total) st (TOPROL-XL) 00 :00 by mouth 2 50 mg 24 hr (two) tablet times a day for 30 days. apixaban 2020- No 2.5mg Q.5D Take 1 [place] (ELIQUIS) 01-20 tablet Methodi 2.5 mg 00:00: 23:59 (2.[address] tablet 00 :00 total) by mouth 2 (two) times a day for 30 days. atorvastati 2020- No TIA 80mg QD Take 1 [facility] n (LIPITOR) 01-20 (transient tablet (80 Methodi 80 MG 00:00: 23:59 ischemic mg total) st tablet 00 :00 attack) by mouth nightly for 30 days. sodium 2020- No 650mg Q.[id number] Take 1 [place] bicarbonate 01-20 [id number] tablet Methodi 650 mg 00:00: 23:59 3D ([address] tablet 00 :00 total) by mouth 3 (three) times a day for 30 days. insulin 2U Q.[id number] Inject 2 [facility] lispro 01-20 [id number] Units Metho di (ADMELOG) 00:00: 00:[address] 100 unit/mL 00 :00 skin 3 injection (three) times a day with meals for 30 days. Vital Signs Vital Name Observation Time Observation Value Comments Source Systolic blood 2021-02-07 16:00:00 125 mm[Hg] [facility] Diastolic blood 2021-02-07 16:00:00 58 mm[Hg] [facility] Heart rate 2021-02-07 16:00:00 93 /min [facility] Body temperature 2021-02-07 16:00:00 36.22 Fatemeh [facility] Respiratory rate 2021-02-07 16:00:00 18 /min [facility] Oxygen saturation in 2021-02-07 16:00:00 97 /min [facility] Arterial blood by Medical Ce nter Pulse oximetry Body weight 2021-02-07 04:10:00 54.25 kg [facility] BMI 2021-02-07 04:10:00 20.53 kg/m2 [facility] Body height 2021-01-31 19:16:00 162.6 cm [facility] Systolic blood 2021-01-20 16:05:06 128 mm[Hg] [place] [facility] pressure Diastolic blood 2021-01-20 16:05:06 60 mm[Hg] [facility] [facility] pressure Heart rate 2021-01-20 16:05:06 73 /min [facility] Body temperature 2021-01-20 16:05:06 37.11 Fatemeh [place] [facility] Respiratory rate 2021-01-20 16:05:06 14 /min [facility] Oxygen saturation in 2021-01-20 16:05:06 96 /min [facility] Arter[facility] blood by Pulse oximetry Body weight 2021-01-17 05:30:00 54 kg [facility] BMI 2021-01-17 05:30:00 19.81 kg/m2 [facility] Body height 2021-01-15 15:18:00 165.1 cm [facility] Procedures Procedure Date / Time Performing Clinician Source Performed POCT-GLUCOSE METER 2021-02-07 17:03:00 Corby Saleh [facility] POCT-GLUCOSE METER 2021-02-07 12:06:00 Therese [facility] POCT-GLUCOSE METER 2021-02-07 07:29:00 Therese [facility] BASIC METABOLIC PANEL (7) 2021-02-07 05:11:00 Puma Rush [facility] CBC (HEMOGRAM ONLY) 2021-02-07 05:11:00 Puma Rush [facility] HEPATIC FUNCTION PANEL 2021-02-07 05:11:00 Therese [facility] B-TYPE NATRIURETIC FACTOR 2021-02-07 05:11:00 James Martinez [facility] (BNP) [facility] TROPONIN I 2021-02-07 05:11:00 James Martinez [facility] POCT-GLUCOSE METER 2021-02-06 20:55:00 Therese [facility] POCT-GLUCOSE METER 2021-02-06 16:30:00 Therese [facility] POCT-GLUCOSE METER 2021-02-06 12:52:00 Therese [facility] POCT-GLUCOSE METER 2021-02-06 07:51:00 Therese [facility] CBC (HEMOGRAM ONLY) 2021-02-06 04:30:00 Puma Rush [facility] BASIC METABOLIC PANEL (7) 2021-02-06 04:29:00 Puma Rush [facility] HEPATIC FUNCTION PANEL 2021-02-06 04:29:00 Therese [facility] POCT-GLUCOSE METER 2021-02-05 16:45:00 [facility] 2021-02-05 11:57:00 Therese [facility] POCT-GLUCOSE METER 2021-02-05 07:33:00 Therese [facility] BASIC METABOLIC PANEL (7) 2021-02-05 04:14:00 Puma Rush [facility] HEPATIC FUNCTION PANEL 2021-02-05 04:14:00 Therese [facility] MAGNESIUM 2021-02-05 04:14:00 [facility]OS[facility]US 2021-02-05 04:14:00 [facility] CBC W/PLT COUNT & AUTO 2021-02-05 [facility]:14[facility]00 [facility]SE [facility] 2021-02-04 17:08:00 Therese [facility] POCT-GLUCOSE METER 2021-02-04 11:31:00 Therese [facility] POCT-GLUCOSE METER 2021-02-04 07:14:00 Therese [facility] HEPATIC FUNCTION PANEL 2021-02-04 03:42:00 Therese [facility] CALCIUM, IONIZED 2021-02-04 03:42[facility]00 [facility] METABOLIC 2021-02-04 03:42:[facility] MAGNESIUM 2021-02-04 03:42:00 [facility] PHOS[facility]US 2021-02-04 03:42:00 [facility] CBC W/PLT COUNT & AUTO 2021-02-04 03:42:00 [facility] POCT-GLUCOSE METER 2021-02-03 22:31:00 [facility]se [facility] POCT-GLUCOSE METER 2021-02-03 16:42:00 Corby Saleh [facility] US ABDOMEN LIMITED 2021-02-03 13:38:00 Coryb Saleh [facility] POCT-GLUCOSE METER 2021-02-03 11:09:00 Corby Saleh [facility] XR CHEST 1 VIEW 2021-02-03 10:55:00 Corby Saleh [facility] PORTABLE/BEDSIDE [facility] HEPATITIS C ANTIBODY 2021-02-03 10:47:00 Corby Saleh [facility] HEPATITIS B PANEL 2021-02-03 10:47:00 Corby Saleh [facility] POCT-GLUCOSE METER 2021-02-03 07:14:00 Corby Saleh [facility] US RENAL COMPLETE 2021-02-03 [facility]:30[facility] 2021-02-03 04:26:00 [facility] COMPREHENSIVE METABOLIC 2021-02-03 04:26:00 [facility] MAGNESIUM 2021-02-03 04:26:00 [facility] PHOS[facility]US 2021-02-03 04:26:00 [facility] CBC W/PLT COUNT & AUTO 2021-02-03 04:26:00 [facility] B-TYPE NATRIURETIC FACTOR 2021-02-03 04:26:00 [facility] (BNP) [facility] POCT-GLUCOSE METER 2021-02-02 21:10:00 Corby Saleh [facility] URINALYSIS W/ MICROSCOPIC 2021-02-02 20:30:00 [facility] PROTEIN, RANDOM URINE 2021-02-02 20:30:00 [facility] CREATININE, RANDOM URINE 2021-02-02 20:30:00 Henrry Dowling [facility] POCT-GLUCOSE METER 2021-02-02 17:32:00 Corby Saleh [facility] POCT-ACT 2021-02-02 13:03:00 Corby Saleh [facility] POCT-ACT 2021-02-02 12:38:00 Corby Saleh [facility] L CATH & PCI 2021-02-02 12:01:00 Jose C Kruse [facility] POCT-GLUCOSE METER 2021-02-02 11:49:00 Corby Saleh [facility] POCT-GLUCOSE METER 2021-02-02 07:30:00 Corby Saleh [facility] ECG 12-LEAD 2021-02-02 06:23:24 Darren Galaviz [facility] TROPONIN I 2021-02-02 06:13:00 Puma Rush [facility] BASIC METABOLIC PANEL (7) 2021-02-02 06:13:00 Puma Rush [facility] CBC (HEMOGRAM ONLY) 2021-02-02 06:13:00 Puma Rush [facility] APTT 2021-02-02 06:13:00 Puma Rush [facility] TROPONIN I 2021-02-01 21:56:00 Puma Rush [facility] ECG 12-LEAD 2021-02-01 21:09:00 Unknown, Hl7 [facility] POCT-GLUCOSE METER 2021-02-01 20:35:00 Corby Saleh [facility] POCT-GLUCOSE METER 2021-02-01 17:40:00 Therese [facility] POCT-ACT 2021-02-01 16:32:00 Corby Saleh [facility] POCT-ACT 2021-02-01 16:03:00 Corby Saleh Ali [facility] POCT-ACT 2021-02-01 15:43:00 Therese [facility] L CATH & PCI 2021-02-01 14:35:00 Jose C Kruse [facility] APTT 2021-02-01 12:46:00 Puma Rush [facility] TROPONIN I 2021-02-01 12:46:00 Puma Rush [facility] POCT-GLUCOSE METER 2021-02-01 12:03:00 Corby Saleh [facility] POCT-GLUCOSE METER 2021-02-01 07:56:00 Therese [facility] APTT 2021-02-01 06:09:00 [facility]se [facility] BASIC METABOLIC PANEL (7) 2021-02-01 06:09:00 Puma Rush [facility] LIPID PANEL 2021-02-01 06:09:00 [facility] B-[facility] NATRIURETIC FACTOR 2021-02-01 06:09:00 Corby Saleh [facility] (BNP) [facility] TROPONIN I 2021-02-01 06:09:00 Puma Rush [facility] CBC (HEMOGRAM ONLY) 2021-02-01 06:09:00 Puma Rush [facility] ABORH, MANUAL 2021-01-31 23:27:00 Rubina Bird [facility] POCT-GLUCOSE METER 2021-01-31 23:22:00 Corby Saleh [facility] ECG 12-LEAD 2021-01-31 22:37:47 Unknown, Hl7 Doctor [facility] TYPE AND SCREEN, AUTOMATED 2021-01-31 22:19:00 Ricky Tafoya [facility] BASIC METABOLIC PANEL (7) 2021-01-31 22:18:00 Puma Rush [facility] APTT 2021-01-31 22:18:00 Corby Saleh Mk [facility] CBC (HEMOGRAM ONLY) 2021-01-31 22:18:00 Puma Rush [facility] HEMOGLOBIN A1C 2021-01-31 22:18:00 Corby Saleh [facility] TROPONIN I 2021-01-31 22:18:00 Onjoseashwin [facility] XR CHEST 1 VIEW 2021-01-31 21:41:00 [facility] - PORTABLE/BEDSIDE [facility] VASCULAR DIAGRAM -SCAN 2021-01-31 00:00:00 ProviderMilka [facility] CARDIAC CATH REPORT - SCAN 2021-01-31 00:00:00 Provider, Mikla [facility] POC GLUCOSE 2021-01-20 18:05:00 Liseth Lawler [facility] POC GLUCOSE 2021-01-20 11:53:00 Liseth Lawler [facility] POC GLUCOSE 2021-01-20 07:47:00 Liseth Lawler [facility] BASIC METABOLIC PANEL 2021-01-20 07:01:00 Liseth Lawler [facility] PHOSPHORUS LEVEL 2021-01-20 07:01:00 Liseth Lawler M ethodist MAGNESIUM LEVEL 2021-01-20 07:01:00 Liseth Lawler [facility] ESTIMATED GFR 2021-01-20 07:01:00 Liseth Lawler [facility]ist POC GLUCOSE 2021-01-20 06:19:00 Liseth Lawler [facility] POC GLUCOSE 2021-01-20 02:33:00 Liseth Lawler [facility] POC GLUCOSE 2021-01-19 21:21:00 Liseth Lawler Me [facility]odist POC GLUCOSE 2021-01-19 17:27:00 Liseth Lawler [facility] POC GLUCOSE 2021-01-19 12:52:00 Liseth Lawler Me thodist POC GLUCOSE 2021-01-19 12:31:00 Liseth Lawler [facility] POC GLUCOSE 2021-01-19 08:31:00 Liseth Lawler [facility] BASIC METABOLIC PANEL 2021-01-19 05:08:00 Liseth Lawler Johan monaco Religion MAGNESIUM LEVEL 2021-01-19 05:08:00 Liseth Lawler Me thodist PHOSPHORUS LEVEL 2021-01-19 05:08:00 Liseth Lawler M ethodist ESTIMATED GFR 2021-01-19 05:08:00 Liseth Lawler [facility] POC GLUCOSE 2021-01-19 03:56:00 Liseth Lawler [facility] POC GLUCOSE 2021-01-18 20:13:00 Liseth Lawler [facility] POC GLUCOSE 2021-01-18 16:38:00 Liseth Lawler [facility] POC GLUCOSE 2021-01-18 11:55:[address] ABDOMEN PELVIS WO 2021-01-18 10:56:29 Viola Arevalo CONTRAST HC COMPLETE BLD COUNT 2021-01-18 10:38:00 Rajesh Anne W/AUTO DIFF Bhjeramiethalle BASIC METABOLIC PANEL 2021-01-18 10:38:00 Rajesh Anne ESTIMATED GFR 2021-01-18 10:38:00 Viola Arevalo Meth odist POC GLUCOSE 2021-01-18 08:14:00 Viola Arevalo Meth odist C-PEPTIDE 2021-01-18 06:03:00 Sandip Waite ISLET CELL AB, IGG 2021-01-18 06:03:00 Sandip Waite GLUTAMIC ACID 2021-01-18 06:03:00 Sandip Waite DECARBOXYLASE AB POC GLUCOSE 2021-01-18 05:53:00 Viola Arevalo Meth odist POC GLUCOSE 2021-01-17 21:48:00 Irina, Viola [facility] Meth odist POC GLUCOSE 2021-01-17 15:15:00 Irina, Viola [facility] Meth odist EEG AWAKE/ASLEEP LESS THAN 2021-01-17 13:54:40 Sathish Cason Religion 41 MIN Wil BETA HYDROXYBUTYRATE 2021-01-17 12:21:00 Rajesh Anneist Bharatkumar POC GLUCOSE 2021-01-17 11:33:00 Irina, Viola [place] Meth odist POC GLUCOSE 2021-01-17 08:44:00 Irina, Viola [facility] Meth odist POC GLUCOSE 2021-01-17 04:26:00 Irina, Violara Corbtet Meth odist HC COMPLETE BLD COUNT 2021-01-17 03:15:00 Edilia Goldstein W/AUTO DIFF BASIC METABOLIC PANEL 2021-01-17 03:15:00 Edilia Goldstein ESTIMATED GFR 2021-01-17 03:15:00 Irina, Viola [facility] Meth odist POC GLUCOSE 2021-01-16 20:02:00 Irina, Viola [facility] Meth odist PROTEIN, URINE, RANDOM 2021-01-16 16:58:00 Rajesh Anne Religion Bharatkumar CREATININE LEVEL, URINE, 2021-01-16 16:58:00 Rajesh Anne Religion RANDOM Bharatkumar MICROALBUMIN, URINE, 2021-01-16 16:58:00 Rajesh Anne Religion RANDOM Bharatkumar POC GLUCOSE 2021-01-16 16:40:00 Irina, Viola [facility] Meth odist TTE COMPLETE, W CONTRAST, 2021-01-16 14:45:00 IrinaViola [place] Religion W DOPPLER ([id number]) POC GLUCOSE 2021-01-16 12:21:00 Irina, Viola [facility] Meth odist MRI BRAIN WO CONTRAST 2021-01-16 12:04:23 Sathish Cason Religionperi De La [place]re MRA HEAD WO CONTRAST 2021-01-16 12:04:06 Chandrakant Cunha Religion POC GLUCOSE 2021-01-16 08:28:00 Irina, Viola [place] Tabitha odist HC COMPLETE BLD COUNT 2021-01-16 04:08:00 JacNicolasadolph garcia Religion W/AUTO DIFF HEMOGLOBIN A1C 2021-01-16 04:08:00 Nicolas Natahn ethodist BASIC METABOLIC PANEL 2021-01-16 04:08:00 Nicolas Nathan Tom garcia Religion ESTIMATED GFR 2021-01-16 04:08:00 Nicolas Nathan ethodist MAGNESIUM LEVEL 2021-01-16 04:08:00 Nicolas Nathan ethodist PHOSPHORUS LEVEL 2021-01-16 04:08:00 JacNicolas Religion POC GLUCOSE 2021-01-15 23:05:00 Irina, Viola [facility] Tabitha odist DKA ELECTROLYTES AND 2021-01-15 22:09:00 Irina, Viola [place] Religion GLUCOSE TEST POC GLUCOSE 2021-01-15 21:55:00 Irina, Viola [place] Meth odist POC GLUCOSE 2021-01-15 20:58:00 Irina, Viola [facility] Tabitha odist COMPREHENSIVE METABOLIC 2021-01-15 20:10:00 Mikey Boo Religion PANEL ESTIMATED GFR 2021-01-15 20:10:00 Mikey Boo Sd thodist POC GLUCOSE 2021-01-15 20:02:00 Irina, Viola [facility] Meth odist TROPONIN 2021-01-15 19:48:00 Mikey Boo Sd thodist POC GLUCOSE 2021-01-15 19:25:00 Irina, Viola [facility] Meth odist POC GLUCOSE 2021-01-15 18:40:00 Irina, [facility] Meth odist COVID-19 QUALITATIVE 2021-01-15 18:26:00 Mikey Boo on Religion RT-PCR BLOOD CULTURE, AEROBIC & 2021-01-15 18:26:00 Irina, Viola garcia Religion ANAEROBIC BLOOD CULTURE, AEROBIC & 2021-01-15 18:25:00 IrinaViola Religion ANAEROBIC VENOUS BLOOD GAS 2021-01-15 18:24:00 Viola Arevalo Met hodist LACTIC ACID LEVEL 2021-01-15 18:24:00 Viola Arevalo Sd thodist COMPREHENSIVE METABOLIC 2021-01-15 18:24:00 Viola Arevalo Religion PANEL MAGNESIUM LEVEL 2021-01-15 18:24:00 IrinaViola bowers odist PHOSPHORUS LEVEL 2021-01-15 18:24:00 Viola Arevalo [facility] DKA ELECTROLYTES AND 2021-01-15 18:24:00 IrinaViola [facility]ers [facility] GLUCOSE TEST HC COMPLETE BLD COUNT 2021-01-15 18:24:00 Viola Arevalo n Religion W/AUTO DIFF CREATINE KINASE, TOTAL 2021-01-15 18:24:00 Viola Arevalo on Religion (CPK) TROPONIN 2021-01-15 18:24:00 Viola Arevalo odperi BETA HYDROXYBUTYRATE 2021-01-15 18:24:00 Viola Arevalo ESTIMATED GFR 2021-01-15 18:24:00 Viola Arevalo odist URINE CULTURE 2021-01-15 16:57:00 Mikey Boo [facility] thodist HIV AG/AB COMBINATION 2021-01-15 16:55:00 Sathish Cason SYPHILIS TREPONEMA SCREEN 2021-01-15 16:55:00 Yoav Sathish Mars [facility] WITH RPR CONFIRMATION Wil (REVERSE ALGORITHM) TROPONIN 2021-01-15 16:55:00 Mikey Boo Sd thodist HEMOGLOBIN A1C 2021-01-15 16:55:00 Yoav [facility] Tabitha odist Wil LIPID PANEL 2021-01-15 16:55:00 Yoav [facility] Tabitha odperi [place] HOMOCYSTINE, PLASMA 2021-01-15 16:55:00 Yoav [facility] Religion Wil FOLATE LEVEL 2021-01-15 16:55:00 Yoav [facility] Meth odist Wil VITAMIN B12 LEVEL 2021-01-15 16:55:00 Yoav [facility] thodist Wil THYROID STIMULATING 2021-01-15 16:55:00 Cason, [facility] Religion HORMONE Wil T4, FREE 2021-01-15 16:55:00 Yoav [facility] Meth odist Wil SEDIMENTATION RATE 2021-01-15 16:55:00 Cason, [facility] M ethodist Wil C-REACTIVE PROTEIN 2021-01-15 16:55:00 Cason, [facility] M ethodist Wil URINALYSIS SCREEN AND 2021-01-15 16:43:00 BakMikey cole Religion MICROSCOPY, WITH REFLEX TO CULTURE URINE DRUGS OF ABUSE 2021-01-15 16:43:00 Cason, [facility] Religion SCREEN Wil HCG QUALITATIVE, URINE 2021-01-15 16:40:00 Mikey Boo [facility] SCREEN CT ANGIOGRAM HEAD W WO 2021-01-15 15:20:03 Mikey Boo Religion CONTRAST CT ANGIOGRAM NECK W WO 2021-01-15 15:15:25 BakMikey cole Religion CONTRAST HC COMPLETE BLD COUNT 2021-01-15 15:13:00 Mikey Boo Religion W/AUTO DIFF PARTIAL THROMBOPLASTIN 2021-01-15 15:13:00 Mikey Boo TIME (PTT) PROTHROMBIN TIME WITH INR 2021-01-15 15:13:00 Mikey Boo COMPREHENSIVE METABOLIC 2021-01-15 15:13:00 Mikey Boo Religion PANEL TROPONIN 2021-01-15 15:13:00 Mikey Boo Me thodist ESTIMATED GFR 2021-01-15 15:13:00 Mikey Boo Me thodist CREATINE KINASE, TOTAL 2021-01-15 15:13:00 Mikey Boo (CPK) ALCOHOL LEVEL, BLOOD 2021-01-15 15:13:00 Mikey Boo on Religion THYROID STIMULATING 2021-01-15 15:13:00 Mikey Boo n Religion HORMONE ECG ED PRELIMINARY 2021-01-15 15:12:29 Mikey Booist INTERPRETATION [facility]/M 2021-01-15 15:12:29 Mikey Boo Religion 30-74 MINUTES [facility] ADDL 30 2021-01-15 15:12:29 Mikey Boo MIN ECG 12-LEAD 2021-01-15 15:10:32 Mikey [address] [facility] [address] STROKE BRAIN WO 2021-01-15 15:00:54 Mikey Boo CONTRAST Plan of Care Planned Activity Planned Date Details Comments Source Future Scheduled 2022-01-16 URINE MICROALBUMIN [place] [facility] 00:00:00 [code = URINE MICROALBUMIN] Future Scheduled 2022-01-16 Urine screening for [facility] - Test 00:00:00 protein (procedure) [facility] [code = 796768639] Future Scheduled 2021-07-[address] [facility] - Test 00:00:00 (Season Ended) [code = Medic al Center INFLUENZA VACCINE (Season Ended)] Future Scheduled 2021-06-12 INFLUENZA VACCINE [place] [facility] 00:00:00 [code = INFLUENZA VACCINE] Future Scheduled 2021-05-[address] [facility] (procedure) [code = [id number]] Future Scheduled 2020-11-[address] [facility] - Test 00:00:00 (12+) [code = Medical Center DEPRESSION SCREENING (12+)] Future Scheduled 2020-11-12 Medicare IPPE (WELCOME [facility]00 TO MEDICARE) [code = Medical Center Medicare IPPE (WELCOME TO MEDICARE)] Future Scheduled 2004 PNEUMOCOCCAL 65+ YRS [facility] - Test 00:00:00 (1 of 1 - Medical Center [id number] PCV13) [code = PNEUMOCOCCAL 65+ YRS (1 of 1 - [id number] PCV13)] Future Scheduled 1989 SHINGLES VACCINES (#1) [place] [facility] 00:00:00 [code = SHINGLES VACCINES (#1)] Future Scheduled 1989 SHINGLES VACCINES ([address] [facility] - Test 00:00:00 of 2) [code = SHINGLES Medic al Center VACCINES (1 of 2)] Future Scheduled 1958 DTAP/TDAP/TD VACCINES [facility] Test 00:00:00 (1 - Tdap) [code = Medical C enter DTAP/TDAP/TD VACCINES (1 - Tdap)] Future Scheduled 1951 COVID-19 VACCINE (1) [place] [facility] Test 00:00:00 [code = COVID-19 VACCINE (1)] Future Scheduled 1951 COVID-19 VACCINE (1) [facility] - Test 00:00:00 [code = COVID-[address] VACCINE (1)] Future Scheduled 1949 DIABETES: RETINAL EYE [place] [facility] 00:00:00 EXAM [code = DIABETES: RETINAL EYE EXAM] Future Scheduled 1949 DIABETIC FOOT EXAM [place] [facility] 00:00:00 [code = DIABETIC FOOT EXAM] Future Scheduled 1949 DIABETIC EYE EXAM [facility] - Test 00:00:00 [code = DIABETIC EYE Medical Center EXAM] Future Scheduled [address] [facility] - Test 00:00:00 examination Medical Center (regime/therapy) [code = [id number]] Future Scheduled 1945 65+ PNEUMOCOCCAL [place] [facility] Test 00:00:00 VACCINE (1 of 2 - PPSV23) [code = 65+ PNEUMOCOCCAL VACCINE (1 of 2 - PPSV23)] Encounters Start End Encounter Admission Attending Care Care Encounter Source Date/Time Date/Time Type Type Clinicians Facility Department ID 2021-04-08 2021-04-08 Outpatient JAMES RodriguezTABITHA LABO [id number] [id number] [facility] 12:08:00 12:08:00 Cristino [id number] [facility] 2021-02-23 2021-02-25 Inpatient JAMES JamesTABITHA INTE.02 [id number] 1-2 [facility] 13:14:00 14:49:00 Norberto [id number] [facility] 2021-01-15 2021-01-20 Inpatient [facility] 012 [id number] [facility] 00:00:00 00:00:00 LIS[address] 2019-12-29 2019-12-29 Office MICHAEL Linares [id number] 19 13:53:04 14:03:04 Visit Nick AMBULATOR [id number] Loyda Y [id number] 300 2019-07-03 2019-07-03 Office MICHAEL Linares [id number] 88 15:11:53 15:26:53 Visit Nick AMBULATOR [id number] [place] Y 0.2.7.2.686 [id number] 300 Results Test Description Test Time Test Comments Results Result Comments Source ANTINUCLEAR ANTIBODIES TITER 2021-04-13 13:12:00 Test Item Value Reference Range Interpretation Comme nts KAMILA SCREEN (test code = Negative See_Comment ANASCR) Negative <1: 80 Borderline 1:80 Positive >1:8 0Performed At: [facility] [address] [address]Ltqwp Gama Rothman MD Ph:[phone] [Automated message] The sy stem which generated this result tra nsmitted reference range: (). The reference range was not used to int erpret this result as normal/abnor mal. FAX:[phone] FAX:[phone] RFLX MICR CULT IF [id number] 20:07:00 Test Item Value Reference Range Interpretation Comments UA COLOR (test code = COLU) YELLOW YEL/STRAW UA APPEARANCE (test code = CLEAR CLEAR APPU) UA GLUCOSE DIPSTICK (test code 1+ NEGATIVE A = DGLUU) UA BILIRUBIN DIPSTICK (test NEGATIVE NEGATIVE code = BILU) UA KETONE DIPSTICK (test code NEGATIVE NEGATIVE = KETU) UA SPECIFIC GRAVITY (test code 1.012 1.005-1.030 N = SGU) UA BLOOD DIPSTICK (test code = NEGATIVE NEGATIVE HAYDEE) UA PH DIPSTICK (test code = 6.0 5.0-7.0 N VA) UA PROTEIN DIPSTICK (test code 3+ NEGATIVE A = PROU) UA UROBILINIOGEN DIPSTICK 0.2 mg/dL 0.2-1.0 (test code = URO) UA NITRITE DIPSTICK (test code NEGATIVE NEGATIVE = RUDI) UA LEUKOCYTE ESTERASE DIPSTICK TRACE NEGATIVE A (test code = LEUU) UA WBC (test code = WBCU) 0-3 WBC/HPF 0-3 UA RBC (test code = RBCU) 0-3 RBC/HPF 0-3 UA WBC NO REFLEX (test code = 0-3 WBC/HPF 0-3 WBCUCL) UA BACTERIA (test code = BACU) NONE SEEN /HPF NONE SEEN UA SQUAMOUS CELLS (test code = 0-5 /HPF NONE SEEN SQU) FAX:[phone]:[phone] PROT ELECTROPHORESIS [id number] 20:07:00 Test Item Value Reference Range Interpretation Comments UR TOTAL PROTEIN 261.4 mg/dL Not Estab. Results con firmed (test code = ondilution. PROTEU) UR ALBUMIN % (test 42.0 % See_Comment [Automat ed message] code = ALBEU%) The system Manomasa generated this result transmitted ref erence range: (). The reference range was not used to int erpret this result as normal/abnormal . UR 8.6 % See_Comment [Automated mes sagar] [id number]-3-VFZGJLFF % The syste m which (test code = generated this result A1GU%) transmitted ref erence range: (). The reference range was not used to int erpret this result as normal/abnormal . UR 12.4 % See_Comment [Automated mes sagar] [id number]-2-[id number] % The syste m which (test code = generated this result A2GU%) transmitted ref erence range: (). The reference range was not used to int erpret this result as normal/abnormal . UR BETA GLOBULIN % 18.2 % See_Comment [Automat ed message] (test code = BGU%) The syste m which generated this result transmitted ref erence range: (). The reference range was not used to int erpret this result as normal/abnormal . UR GAMMA GLOBULIN 18.7 % See_Comment [Automate d message] % (test code = The system [employer] GGU%) generated this result transmitted ref erence range: (). The reference range was not used to int erpret this result as normal/abnormal . M SPIKE % (test Not Observed % Not Observed code = MSPIKE%) FAX:[phone]:[phone] MICROALBUMIN/CREAT [id number] 20:07:00 Test Item Value Reference Range Interpretation Comments UR CREATININE (test 94.8 mg/dL Not Estab. code = CREATE) UR MICROALBUMIN QUAL 1439.2 ug/mL Not Estab. Results confirmed (test code = MICALBQL) ondil ution. UR MICROALB/CREAT 1518 0-29 H INFCE Resu lt Units: RATIO (test code = mg/g crea t MICALB:CRE) Normal: 0 - 29 Moderately increased: 30 - 300 Severely increased: >300Performed A t: HD [facility] [address] [place], [place] [id number] Gama Rothman MD Ph:[phone] FAX:[phone]:[phone] METABOLIC [id number] 20:07:00 Test Item Value Reference Range Interpretation Comments SODIUM (test code = NA) 136 mEq/L 134-147 N POTASSIUM (test code = 4.0 mEq/L 3.4-5.0 N K) CHLORIDE (test code = 101 mEq/L 100-108 N CL) CARBON DIOXIDE (test 29 mEq/l 21-33 N code = CO2) ANION GAP (test code = 10 0-20 N GAP) GLUCOSE (test code = 242 mg/dL 70-110 H GLU) BLOOD UREA NITROGEN 43 mg/dL 7-18 H (test code = BUN) GLOMERULAR FILTRATION 25.4 70-80 L Units of measure = RATE (test code = GFR) ml/mi n/1.73 m2 CREATININE (test code = 1.9 mg/dL 0.6-1.3 H CREAT) TOTAL PROTEIN (test 8.1 g/dL 6.4-8.2 N code = PROT) ALBUMIN (test code = 3.70 g/dL 3.4-5.0 N ALB) CALCIUM (test code = 9.3 mg/dL 8.0-10.5 N CA) BILIRUBIN TOTAL (test 0.50 mg/dL 0.0-1.0 N code = BILT) SGOT/AST (test code = 24 IUnit/L 15-37 N AST) SGPT/ALT (test code = 19 IUnit/L 30-65 L ALT) ALKALINE PHOSPHATASE 160 IUnit/L 20-125 H TOTAL (test code = ALKP) FAX:[phone] FAX:[phone] ELECTROPHORESIS [id number] 20:07:00 Test Item Value Reference Range Interpretation Comments TOTAL PROTEIN 8.0 g/dL 6.0-8.5 (test code = PROTE) ALBUMIN (test 3.2 g/dL 2.9-4.4 code = ALBE) ZIJMR-8-WNTQMAX 0.3 g/dL 0.0-0.4 N (test code = A1G) TTVZZ-2-JGFWRRD 1.3 g/dL 0.4-1.0 A N (test code = A2G) BETA GLOBULIN 1.6 g/dL 0.7-1.3 A (test code = BG) GAMMA GLOBULIN 1.6 g/dL 0.4-1.8 (test code = GG) M-SPIKE,SERUM Not Observed Not Observed (test code = g/dL MSPIKES) GLOBULIN ELECT 4.8 g/dL 2.2-3.9 H (test code = GLOBE) ALBUMIN/GLOBULI 0.7 0.7-1.7 N RATIO (test code = AGE) PROT.ELECTROPH. Note: See_Comment The SPE karo nathalia INTERPRETATION demonstrates elevation of (test code = regionscontaini ng acute ELEINT) phase proteins suggesting anacute/subacut e inflammatory re sponse. Some conditions inwhich this pattern hoffman s been observed includ e: bacterial,viral or parasitic infec tion; mechanical, phy sical orchemical trau ma; and cardiac failure . The gamma globulinregion is unremarkable an d evidence of monoclonal p roteinis not apparent.Th e SPE pattern demonst rates an increase in the betafraction. T his may be due to increase s in transferrin, beta-lipoprotei n (hypercholester olemia), or immunoglobulins , asseen in polyclonal or m onoclonal gammopathies. I fclinically indicated, the presence of a monoclonalgam mopathy may be confirmed by immunofixation or serum freelight chain quantitation.Pe rformed At: [facility] [place], [place] [id number] Kyle L MD Ph:[phone] rformed At: DA [facility] [address] [place], [place] [id number] h CN MD Ph:[phone] [ Automated message] The sy stem which generated this result transmitted ref erence range: (). The reference range was not u sed to interpret this result as normal/abnormal . FAX:[phone] FAX:[phone] 20:07:00 Test Item Value Reference Range Interpretation Comments PHOSPHOROUS (test code = PHOS) 3.9 MG/DL 2.5-4.9 N FAX:[phone] FAX:[phone] [id number] 20:07:00 Test Item Value Reference Range Interpretation Comments URIC ACID (test code = URIC) 9.0 mg/dL 2.6-7.2 H FAX:[phone] FAX:[phone] 20:07:00 Test Item Value Reference Range Interpretation Comments MAGNESIUM (test code = MAG) 1.53 mg/dL 1.80-2.40 L FAX:[phone] FAX:[phone] PRO-BRAIN NATRIURETIC [id number] 20:07:00 Test Item Value Reference Range Interpretation Comments NT PRO-BRAIN NATRIURETIC PEPTI 4512 PG/ML 0-100 H (test code = PROBNP) FAX:[phone] FAX:[phone] A,G [id number] 20:07:00 Test Item Value Reference Range Interpretation Comments IMMUNOGLOBULIN G (test 1712 mg/dL 586-1602 A code = IGG) IMMUNOGLOBULIN M (test 52 mg/dL 26-217 Perfo rmed At: HD code = IGM) [facility] [place] [address] [place], [place] [id number] Kyle L MD Ph:[phone] IMMUNOGLOBULIN A (test 663 mg/dL 64-422 A code = IGA) FAX:[phone] FAX:[phone] D [id number] 20:07:00 Test Item Value Reference Range Interpretation Comments VITAMIN D 25-HYDROXY (test code = 17.4 ng/mL 30-100 L VITD25) FAX:[phone] FAX:[phone] RFLX MICR CULT IF [id number] 11:08:00 Test Item Value Reference Range Interpretation Comments UA COLOR (test code = COLU) YELLOW YEL/STRAW UA APPEARANCE (test code = CLEAR CLEAR APPU) UA GLUCOSE DIPSTICK (test code 1+ NEGATIVE A = DGLUU) UA BILIRUBIN DIPSTICK (test NEGATIVE NEGATIVE code = BILU) UA KETONE DIPSTICK (test code NEGATIVE NEGATIVE = KETU) UA SPECIFIC GRAVITY (test code 1.012 1.005-1.030 N = SGU) UA BLOOD DIPSTICK (test code = NEGATIVE NEGATIVE HAYDEE) UA PH DIPSTICK (test code = 6.0 5.0-7.0 N VA) UA PROTEIN DIPSTICK (test code 3+ NEGATIVE A = PROU) UA UROBILINIOGEN DIPSTICK 0.2 mg/dL 0.2-1.0 (test code = URO) UA NITRITE DIPSTICK (test code NEGATIVE NEGATIVE = RUDI) UA LEUKOCYTE ESTERASE DIPSTICK TRACE NEGATIVE A (test code = LEUU) UA WBC (test code = WBCU) 0-3 WBC/HPF 0-3 UA RBC (test code = RBCU) 0-3 RBC/HPF 0-3 UA WBC NO REFLEX (test code = 0-3 WBC/HPF 0-3 WBCUCL) UA BACTERIA (test code = BACU) NONE SEEN /HPF NONE SEEN UA SQUAMOUS CELLS (test code = 0-5 /HPF NONE SEEN SQU) FAX:[phone]:[phone] PROT ELECTROPHORESIS [id number] 11:08:00 Test Item Value Reference Range Interpretation Comments UR TOTAL PROTEIN (test code = PROTEU) UR ALBUMIN % (test code = ALBEU%) UR ZMDQO-9-QEZOVUWH % (test code = A1GU%) UR LZQCX-9-DGVBJJLG % (test code = A2GU%) UR BETA GLOBULIN % (test code = BGU%) UR GAMMA GLOBULIN % (test code = GGU%) M SPIKE % (test code = MSPIKE%) FAX:[phone]:[phone] MICROALBUMIN/CREAT [id number] 11:08:00 Test Item Value Reference Range Interpretation Comments UR CREATININE (test 94.8 mg/dL Not Estab. code = CREATE) UR MICROALBUMIN QUAL 1439.2 ug/mL Not Estab. Results confirmed (test code = MICALBQL) ondil ution. UR MICROALB/CREAT 1518 0-29 H INFCE Resu lt Units: RATIO (test code = mg/g crea t MICALB:CRE) Normal: 0 - 29 Moderately increased: 30 - 300 Severely increased: >300Performed A t: HD [facility] [address] [place], [place] [id number] Gama Rothman MD Ph:[phone] FAX:[phone]:[phone] METABOLIC [id number] 10:08:00 Test Item Value Reference Range Interpretation Comments SODIUM (test code = NA) 136 mEq/L 134-147 N POTASSIUM (test code = 4.0 mEq/L 3.4-5.0 N K) CHLORIDE (test code = 101 mEq/L 100-108 N CL) CARBON DIOXIDE (test 29 mEq/l 21-33 N code = CO2) ANION GAP (test code = 10 0-20 N GAP) GLUCOSE (test code = 242 mg/dL 70-110 H GLU) BLOOD UREA NITROGEN 43 mg/dL 7-18 H (test code = BUN) GLOMERULAR FILTRATION 25.4 70-80 L Units of measure = RATE (test code = GFR) ml/mi n/1.73 m2 CREATININE (test code = 1.9 mg/dL 0.6-1.3 H CREAT) TOTAL PROTEIN (test 8.1 g/dL 6.4-8.2 N code = PROT) ALBUMIN (test code = 3.70 g/dL 3.4-5.0 N ALB) CALCIUM (test code = 9.3 mg/dL 8.0-10.5 N CA) BILIRUBIN TOTAL (test 0.50 mg/dL 0.0-1.0 N code = BILT) SGOT/AST (test code = 24 IUnit/L 15-37 N AST) SGPT/ALT (test code = 19 IUnit/L 30-65 L ALT) ALKALINE PHOSPHATASE 160 IUnit/L 20-125 H TOTAL (test code = ALKP) FAX:[phone] FAX:[phone] ELECTROPHORESIS [id number] 10:08:00 Test Item Value Reference Range Interpretation Comments TOTAL PROTEIN (test code = PROTE) ALBUMIN (test code = ALBE) FALKE-9-RBLVFTJA (test code = A1G) DIUSL-5-FHNYLHCA (test code = A2G) BETA GLOBULIN (test code = BG) GAMMA GLOBULIN (test code = GG) M-SPIKE,SERUM (test code = MSPIKES) GLOBULIN ELECT (test code = GLOBE) ALBUMIN/GLOBULIN RATIO (test code = AGE) PROT.ELECTROPH.INTERPRETATION (test code = ELEINT) FAX:[phone] FAX:[phone] 10:08:00 Test Item Value Reference Range Interpretation Comments PHOSPHOROUS (test code = PHOS) 3.9 MG/DL 2.5-4.9 N FAX:[phone] FAX:[phone] [id number] 10:08:00 Test Item Value Reference Range Interpretation Comments URIC ACID (test code = URIC) 9.0 mg/dL 2.6-7.2 H FAX:[phone] FAX:[phone] 10:08:00 Test Item Value Reference Range Interpretation Comments MAGNESIUM (test code = MAG) 1.53 mg/dL 1.80-2.40 L FAX:[phone] FAX:[phone] PRO-BRAIN NATRIURETIC [id number] 10:08:00 Test Item Value Reference Range Interpretation Comments NT PRO-BRAIN NATRIURETIC PEPTI 4512 PG/ML 0-100 H (test code = PROBNP) FAX:[phone] FAX:[phone] A,G [id number] 10:08:00 Test Item Value Reference Range Interpretation Comments IMMUNOGLOBULIN G (test 1712 mg/dL 586-1602 A code = IGG) IMMUNOGLOBULIN M (test 52 mg/dL 26-217 Perfo rmed At: HD code = IGM) [facility] [id number] Gama Rothman MD Ph:[phone] IMMUNOGLOBULIN A (test 663 mg/dL 64-422 A code = IGA) FAX:[phone] FAX:[phone] D [id number] 10:08:00 Test Item Value Reference Range Interpretation Comments VITAMIN D 25-HYDROXY (test code = 17.4 ng/mL 30-100 L VITD25) FAX:[phone] FAX:[phone] PRO-BRAIN NATRIURETIC [id number] 13:38:00 Test Item Value Reference Range Interpretation Comments NT PRO-BRAIN NATRIURETIC PEPTI 4512 PG/ML 0-100 H (test code = PROBNP) FAX:[phone] FAX:[phone] METABOLIC [id number] 13:38:00 Test Item Value Reference Range Interpretation Comments SODIUM (test code = NA) 136 mEq/L 134-147 N POTASSIUM (test code = 4.0 mEq/L 3.4-5.0 N K) CHLORIDE (test code = 101 mEq/L 100-108 N CL) CARBON DIOXIDE (test 29 mEq/l 21-33 N code = CO2) ANION GAP (test code = 10 0-20 N GAP) GLUCOSE (test code = 242 mg/dL 70-110 H GLU) BLOOD UREA NITROGEN 43 mg/dL 7-18 H (test code = BUN) GLOMERULAR FILTRATION 25.4 70-80 L Units of measure = RATE (test code = GFR) ml/mi n/1.73 m2 CREATININE (test code = 1.9 mg/dL 0.6-1.3 H CREAT) TOTAL PROTEIN (test 8.1 g/dL 6.4-8.2 N code = PROT) ALBUMIN (test code = 3.70 g/dL 3.4-5.0 N ALB) CALCIUM (test code = 9.3 mg/dL 8.0-10.5 N CA) BILIRUBIN TOTAL (test 0.50 mg/dL 0.0-1.0 N code = BILT) SGOT/AST (test code = 24 IUnit/L 15-37 N AST) SGPT/ALT (test code = 19 IUnit/L 30-65 L ALT) ALKALINE PHOSPHATASE 160 IUnit/L 20-125 H TOTAL (test code = ALKP) FAX:[phone] FAX:[phone] ELECTROPHORESIS [id number] 13:38:00 Test Item Value Reference Range Interpretation Comments TOTAL PROTEIN (test code = PROTE) ALBUMIN (test code = ALBE) AXKFD-3-GXZVDAZN (test code = A1G) SADIY-9-QHLUXQFS (test code = A2G) BETA GLOBULIN (test code = BG) GAMMA GLOBULIN (test code = GG) M-SPIKE,SERUM (test code = MSPIKES) GLOBULIN ELECT (test code = GLOBE) ALBUMIN/GLOBULIN RATIO (test code = AGE) PROT.ELECTROPH.INTERPRETATION (test code = ELEINT) FAX:[phone] FAX:[phone] 13:38:00 Test Item Value Reference Range Interpretation Comments PHOSPHOROUS (test code = PHOS) 3.9 MG/DL 2.5-4.9 N FAX:[phone] FAX:[phone] [id number] 13:38:00 Test Item Value Reference Range Interpretation Comments URIC ACID (test code = URIC) 9.0 mg/dL 2.6-7.2 H FAX:[phone] FAX:[phone] 13:38:00 Test Item Value Reference Range Interpretation Comments MAGNESIUM (test code = MAG) 1.53 mg/dL 1.80-2.40 L FAX:[phone] FAX:[phone] PRO-BRAIN NATRIURETIC [id number] 13:38:00 Test Item Value Reference Range Interpretation Comments NT PRO-BRAIN NATRIURETIC PEPTI 4512 PG/ML 0-100 H (test code = PROBNP) FAX:[phone] FAX:[phone] A,G [id number] 13:38:00 Test Item Value Reference Range Interpretation Comments IMMUNOGLOBULIN G (test code = IGG) IMMUNOGLOBULIN M (test code = IGM) IMMUNOGLOBULIN A (test code = IGA) FAX:[phone] FAX:[phone] D [id number] 13:38:00 Test Item Value Reference Range Interpretation Comments VITAMIN D 25-HYDROXY (test code = 17.4 ng/mL 30-100 L VITD25) FAX:[phone] FAX:[phone] Coronavirus 2019 [id number] 06:58:00 Test Item Value Reference Range Interpretation Comments Novel Coronavirus Negative Negative Positive r esults are 2019 Inhouse (test indicativ e of the presence code = COVNONPUI) ofSARS-CoV -2 RNA, clinical correlation wit h patient historyand othe r diagnostic info rmation is necessary to determinepatien t infection status. Positiv e results do not rule out bacterial infection or co -infection with other viru ses. Negative result s do not preclude SARS-C oV-2 infection andsh ould not be used as the mady e basis for patient managementdecis ions. Negative result s must be combined with otherclinical observations, p atient history, and epidemiological information . Detection of SARS-CoV-2 RNA may be affe cted bysample collec tion methods, storag e conditions, and /or stageof infection. Jayla l RNA mutations, vacc inations, antiviraltherap eutics, antibiotics, chemotherapeuti c orimmunosuppres rhonda drugs have not been e valuated for effectson d etection. Results are for the identification of SARS-CoV-2 RNA usingthe [employer] M2000 Sy stem under the FDA Emergen cy UseAuthorizatio n. The testing is perf ormed by personneltraine d in the procedures for the [employer]inez M2000 molecular diagnostic SARS-CoV-2 assa y in vitro. [id number] 14:21:00 Test Item Value Reference Range Interpretation Comments HGBA1C% (test code = HGBA1C%) 7.8 %A1C 4.8-6.0 H FAX:[phone] METABOLIC [id number] 13:51:00 Test Item Value Reference Range Interpretation Comments SODIUM (test code = NA) 136 mEq/L 134-147 N POTASSIUM (test code = 4.0 mEq/L 3.4-5.0 N K) CHLORIDE (test code = 101 mEq/L 100-108 N CL) CARBON DIOXIDE (test 29 mEq/l 21-33 N code = CO2) ANION GAP (test code = 10 0-20 N GAP) GLUCOSE (test code = 242 mg/dL 70-110 H GLU) BLOOD UREA NITROGEN 43 mg/dL 7-18 H (test code = BUN) GLOMERULAR FILTRATION 25.4 70-80 L Units of measure = RATE (test code = GFR) ml/mi n/1.73 m2 CREATININE (test code = 1.9 mg/dL 0.6-1.3 H CREAT) TOTAL PROTEIN (test 8.1 g/dL 6.4-8.2 N code = PROT) ALBUMIN (test code = 3.70 g/dL 3.4-5.0 N ALB) CALCIUM (test code = 9.3 mg/dL 8.0-10.5 N CA) BILIRUBIN TOTAL (test 0.50 mg/dL 0.0-1.0 N code = BILT) SGOT/AST (test code = 24 IUnit/L 15-37 N AST) SGPT/ALT (test code = 19 IUnit/L 30-65 L ALT) ALKALINE PHOSPHATASE 160 IUnit/L 20-125 H TOTAL (test code = ALKP) FAX:[phone] ELECTROPHORESIS [id number] 13:51:00 Test Item Value Reference Range Interpretation Comments TOTAL PROTEIN (test code = PROTE) ALBUMIN (test code = ALBE) [id number] (test code = A1G) [id number] (test code = A2G) BETA GLOBULIN (test code = BG) GAMMA GLOBULIN (test code = GG) M-SPIKE,SERUM (test code = MSPIKES) GLOBULIN ELECT (test code = GLOBE) ALBUMIN/GLOBULIN RATIO (test code = AGE) PROT.ELECTROPH.INTERPRETATION (test code = ELEINT) FAX:[phone] 13:51:00 Test Item Value Reference Range Interpretation Comments PHOSPHOROUS (test code = PHOS) 3.9 MG/DL 2.5-4.9 N FAX:[phone] 13:51:00 Test Item Value Reference Range Interpretation Comments URIC ACID (test code = URIC) 9.0 mg/dL 2.6-7.2 H FAX:[phone] 13:51:00 Test Item Value Reference Range Interpretation Comments MAGNESIUM (test code = MAG) 1.53 mg/dL 1.80-2.40 L FAX:[phone] PRO-BRAIN NATRIURETIC [id number] 13:51:00 Test Item Value Reference Range Interpretation Comments NT PRO-BRAIN NATRIURETIC PEPTI (test code = PROBNP) FAX:[phone] 13:51:00 Test Item Value Reference Range Interpretation Comments IMMUNOGLOBULIN G (test code = IGG) FAX:[phone] 13:51:00 Test Item Value Reference Range Interpretation Comments IMMUNOGLOBULIN M (test code = IGM) FAX:[phone] 13:51:00 Test Item Value Reference Range Interpretation Comments IMMUNOGLOBULIN A (test code = IGA) FAX:[phone] 13:51:00 Test Item Value Reference Range Interpretation Comments VITAMIN D 25-HYDROXY (test code = 17.4 ng/mL 30-100 L VITD25) FAX:[phone] RFLX MICR CULT IF [id number] 13:41:00 Test Item Value Reference Range Interpretation Comments UA COLOR (test code = COLU) YELLOW YEL/STRAW UA APPEARANCE (test code = CLEAR CLEAR APPU) UA GLUCOSE DIPSTICK (test code 1+ NEGATIVE A = DGLUU) UA BILIRUBIN DIPSTICK (test NEGATIVE NEGATIVE code = BILU) UA KETONE DIPSTICK (test code NEGATIVE NEGATIVE = KETU) UA SPECIFIC GRAVITY (test code 1.012 1.005-1.030 N = SGU) UA BLOOD DIPSTICK (test code = NEGATIVE NEGATIVE HAYDEE) UA PH DIPSTICK (test code = 6.0 5.0-7.0 N VA) UA PROTEIN DIPSTICK (test code 3+ NEGATIVE A = PROU) UA UROBILINIOGEN DIPSTICK 0.2 mg/dL 0.2-1.0 (test code = URO) UA NITRITE DIPSTICK (test code NEGATIVE NEGATIVE = RUDI) UA LEUKOCYTE ESTERASE DIPSTICK TRACE NEGATIVE A (test code = LEUU) UA WBC (test code = WBCU) 0-3 WBC/HPF 0-3 UA RBC (test code = RBCU) 0-3 RBC/HPF 0-3 UA WBC NO REFLEX (test code = 0-3 WBC/HPF 0-3 WBCUCL) UA BACTERIA (test code = BACU) NONE SEEN /HPF NONE SEEN UA SQUAMOUS CELLS (test code = 0-5 /HPF NONE SEEN SQU) FAX:[phone] PROT ELECTROPHORESIS [id number] 13:41:00 Test Item Value Reference Range Interpretation Comments UR TOTAL PROTEIN (test code = PROTEU) UR ALBUMIN % (test code = ALBEU%) UR UMMCP-2-BMVODFUQ % (test code = A1GU%) UR TXIBS-2-SYEMOOUN % (test code = A2GU%) UR BETA GLOBULIN % (test code = BGU%) UR GAMMA GLOBULIN % (test code = GGU%) M SPIKE % (test code = MSPIKE%) FAX:[phone] MICROALBUMIN/CREAT [id number] 13:41:00 Test Item Value Reference Range Interpretation Comments UR CREATININE (test code = CREATE) UR MICROALBUMIN QUAL (test code = MICALBQL) UR MICROALB/CREAT RATIO (test code mcg/mgCr = MICALB:CRE) FAX:[phone] METABOLIC [id number] 13:39:00 Test Item Value Reference Range Interpretation Comments SODIUM (test code = NA) 134 mEq/L 134-147 N POTASSIUM (test code = 3.8 mEq/L 3.4-5.0 N K) CHLORIDE (test code = 101 mEq/L 100-108 N CL) CARBON DIOXIDE (test 30 mEq/l 21-33 N code = CO2) ANION GAP (test code = 7 0-20 N GAP) GLUCOSE (test code = 236 mg/dL 70-110 H GLU) BLOOD UREA NITROGEN 39 mg/dL 7-18 H (test code = BUN) GLOMERULAR FILTRATION 27.0 70-80 L Units of measure = RATE (test code = GFR) ml/mi n/1.73 m2 CREATININE (test code = 1.8 mg/dL 0.6-1.3 H CREAT) CALCIUM (test code = 9.5 mg/dL 8.0-10.5 N CA) PTH INTACT [id number] 13:24:00 Test Item Value Reference Range Interpretation Comments PARATHYROID HORMONE INTACT (test 162.2 pg/mL 14.0-72.0 H code = PARAI) FAX:[phone] 13:12:00 Test Item Value Reference Range Interpretation Comments PROTHROMBIN TIME 11.9 SECONDS 9.3-12.9 N PATIENT (test code = PTP) INTERNATIONAL NORMAL 1.1 0.8-1.2 N TARGET RATIO (test code = INR BY IN DICATION INR) Indication INR1. Prophyl axis of venous thrombos is 2.0 - 3. 0 (orthopedic eduardo bubba), Prophylaxis of venous thrombos is (other than hig h-risk surgery), Terrie tment of Deep Vein Thrombosis/Pulm onary Embolism, Preve ntion of systemic emb olism - Tissue heart va lves, Acute Myocardia l Infarction (to prevent systemic embo lism), Valvular heart disease, Atri al Fibrillation, Bileaflet mecha nical valve in aortic position.2. Mec hanical prosthetic valv es (high risk), 2.5 - 3.5 Presence of Lupus Anticoagu lant or Antiphospholi pid Antibodies, Pre vention of systemic e mbolism - Acute Myocard ial Infarction (t o prevent recurre nt infarct). CBC W/AUTO [id number] 13:06:00 Test Item Value Reference Range Interpretation Comments WHITE BLOOD CELL (test code = 6.3 x10 3/uL 4.5-11.0 N WBC) RED BLOOD CELL (test code = 4.17 x10 6/uL 3.54-5.02 N RBC) HEMOGLOBIN (test code = HGB) 12.4 g/dL 11.0-15.0 N HEMATOCRIT (test code = HCT) 38.3 % 33.0-45.0 N MEAN CELL VOLUME (test code = 91.8 fL 81.0-99.0 N MCV) MEAN CELL HGB (test code = MCH) 29.7 pg 27.0-33.0 N MEAN CELL HGB CONCETRATION 32.4 g/dL 33.0-37.0 L (test code = MCHC) RED CELL DISTRIBUTION WIDTH CV 12.8 % 11.5-14.5 N (test code = RDW) RED CELL DISTRIBUTION WIDTH SD 43.1 fL 37.0-54.0 N (test code = RDW-SD) PLATELET COUNT (test code = 284 x10 3/uL 150-400 N PLT) MEAN PLATELET VOLUME (test code 10.9 fL 7.0-9.0 H = MPV) NEUTROPHIL % (test code = NT%) 54.0 % 56.0-77.0 L IMMATURE GRANULOCYTE % (test 0.2 % 0.0-2.0 N code = IG%) LYMPHOCYTE % (test code = LY%) 32.8 % 14.0-32.0 H MONOCYTE % (test code = MO%) 8.9 % 4.8-9.0 N EOSINOPHIL % (test code = EO%) 3.5 % 0.3-3.7 N BASOPHIL % (test code = BA%) 0.6 % 0.0-2.0 N NUCLEATED RBC % (test code = 0.0 % 0-0 N NRBC%) NEUTROPHIL # (test code = NT#) 3.40 x10 3/uL 2.0-7.6 N IMMATURE GRANULOCYTE # (test 0.01 x10 3/uL 0.00-0.03 N code = IG#) LYMPHOCYTE # (test code = LY#) 2.06 x10 3/uL 1.0-3.8 N MONOCYTE # (test code = MO#) 0.56 x10 3/uL 0.1-0.8 N EOSINOPHIL # (test code = EO#) 0.22 x10 3/uL 0.0-0.2 H BASOPHIL # (test code = BA#) 0.04 x10 3/uL 0.0-0.2 N NUCLEATED RBC # (test code = 0.00 x10 3/uL 0.0-0.1 N NRBC#) MANUAL DIFF REQUIRED (test code NO = MDIFF) PROTEIN ELECTROPHORESIS [id number] 13:09:00 Test Item Value Reference Range Interpretation Comments TOTAL PROTEIN 7.0 g/dL 6.0-8.5 (test code = PROTE) ALBUMIN (test 2.9 g/dL 2.9-4.4 code = ALBE) [id number]-6-NLYASVNX 0.4 g/dL 0.0-0.4 (test code = A1G) GYFAH-0-YVAKZEYW 1.1 g/dL 0.4-1.0 A (test code = A2G) BETA GLOBULIN 1.3 g/dL 0.7-1.3 (test code = BG) GAMMA GLOBULIN 1.3 g/dL 0.4-1.8 (test code = GG) M-SPIKE,SERUM Not Observed g/dL Not Observed (test code = MSPIKES) GLOBULIN ELECT 4.1 g/dL 2.2-3.9 H (test code = GLOBE) ALBUMIN/GLOBULIN 0.7 0.7-1.7 RATIO (test code = AGE) PROT.ELECTROPH.IN See_Comment The SPE pa ttern TERPRETATION appears (test code = unremarkable. ELEINT) Evidence ofmonoclonal pr otein is not apparent.Perfor med At: [facility] [address] [id number] Kyle L MD Ph:[phone] rform ed At: [facility] [address] [place], [place] [id number] h CN MD Ph:[phone] [Automated mess age] The system [employer] generated this result transmit rosalia reference range : (). The reference r neyda was not used to interpret this result as normal/abnormal . IMMUNOELECTROPHORESIS [id number] 13:09:00 Test Item Value Reference Range Interpretation Comments IMMUNOGLOBULIN A (test 536 mg/dL 64-422 A code = AIDEN) IMMUNOGLOBULIN G (test 1323 mg/dL 586-1602 code = IMMG) IMMUNOGLOBULIN M (test 33 mg/dL 26-217 Perfo rmed At: DA code = IMMM) [facility] [place] [id number] [address] [facility] [address] [place], [place] [id number] h CN MD Ph:[phone] rform ed At: [facility] DillonDnawjbg[address] [place], [place] [id number] Rothman MD Ph:[phone] IMMUNOFIXATION SERUM See_Comment A Polyclo nal increase (test code = IMMFIXS) detect ed in one or moreimmunoglobu penny. [Automated mess age] The system [employer] generated this result transmit rosalia reference range : (). The reference r neyda was not used to interpret this result as normal/abnormal . FREE KAPPA + LAMBDA LT [id number] 13:09:00 Test Item Value Reference Range Interpretation Comments FREE KAPPA LT CHAINS 127.9 mg/L 3.3-19.4 A (test code = KAPPAFR) FREE LAMBDA LT 90.1 mg/L 5.7-26.3 A CHAINS (test code = LAMBDAFR) FREE KAPPA/LAMBDA 1.42 0.26-1.65 Performed At: DA RATIO (test code = [facility] D [id number] KAPFRLAMFR) [facility] [place], [place] [id number] h CN MD Ph:[phone] PROTEIN ELECTROPHORESIS [id number] 12:09:00 Test Item Value Reference Range Interpretation Comments TOTAL PROTEIN (test code = PROTE) ALBUMIN (test code = ALBE) RKNBP-9-MFIOKQUV (test code = A1G) RHRAC-7-TZEDRHFY (test code = A2G) BETA GLOBULIN (test code = BG) GAMMA GLOBULIN (test code = GG) M-SPIKE,SERUM (test code = MSPIKES) GLOBULIN ELECT (test code = GLOBE) ALBUMIN/GLOBULIN RATIO (test code = AGE) PROT.ELECTROPH.INTERPRETATION (test code = ELEINT) IMMUNOELECTROPHORESIS [id number] 12:09:00 Test Item Value Reference Range Interpretation Comments IMMUNOGLOBULIN A (test 536 mg/dL 64-422 A code = AIDEN) IMMUNOGLOBULIN G (test 1323 mg/dL 586-1602 code = IMMG) IMMUNOGLOBULIN M (test 33 mg/dL 26-217 Perfo rmed At: DA code = IMMM) [facility] [place] [facility] [address] [place], [place] [id number] h CN MD Ph:[phone] rform ed At: [facility] DillonBpbmsfs[address] [place], [place] [id number] Kyle L MD Ph:[phone] IMMUNOFIXATION SERUM See_Comment A Polyclo nal increase (test code = IMMFIXS) detect ed in one or moreimmunoglobu penny. [Automated mess age] The system [employer] generated this result transmit rosalia reference range : (). The reference r neyda was not used to interpret this result as normal/abnormal . FREE KAPPA + LAMBDA LT [id number] 12:09:00 Test Item Value Reference Range Interpretation Comments FREE KAPPA LT CHAINS 127.9 mg/L 3.3-19.4 A (test code = KAPPAFR) FREE LAMBDA LT 90.1 mg/L 5.7-26.3 A CHAINS (test code = LAMBDAFR) FREE KAPPA/LAMBDA 1.42 0.26-1.65 Performed At: DA RATIO (test code = [facility] D [id number] KAPFRLAMFR) [facility] [address] [place], [place] [id number] h CN MD Ph:[phone] PROTEIN ELECTROPHORESIS [id number] 17:08:00 Test Item Value Reference Range Interpretation Comments TOTAL PROTEIN (test code = PROTE) ALBUMIN (test code = ALBE) QTPRR-4-MOOAHYNO (test code = A1G) HTDHU-1-LWGNELWW (test code = A2G) BETA GLOBULIN (test code = BG) GAMMA GLOBULIN (test code = GG) M-SPIKE,SERUM (test code = MSPIKES) GLOBULIN ELECT (test code = GLOBE) ALBUMIN/GLOBULIN RATIO (test code = AGE) PROT.ELECTROPH.INTERPRETATION (test code = ELEINT) IMMUNOELECTROPHORESIS [id number] 17:08:00 Test Item Value Reference Range Interpretation Comments IMMUNOGLOBULIN A (test code = AIDEN) IMMUNOGLOBULIN G (test code = IMMG) IMMUNOGLOBULIN M (test code = IMMM) IMMUNOFIXATION SERUM (test code = IMMFIXS) FREE KAPPA + LAMBDA LT [id number] 17:08:00 Test Item Value Reference Range Interpretation Comments FREE KAPPA LT CHAINS 127.9 mg/L 3.3-19.4 A (test code = KAPPAFR) FREE LAMBDA LT 90.1 mg/L 5.7-26.3 A CHAINS (test code = LAMBDAFR) FREE KAPPA/LAMBDA 1.42 0.26-1.65 Performed At: DA RATIO (test code = [facility] D [id number] KAPFRLAMFR) [address] [place], [place] [id number] h CN MD Ph:[phone] [id number] 13:19:00 Test Item Value Reference Range Interpretation Comments GLUBED (test code = 136 MG/DL 70-110 H Performe d by certified GLUBED) casting 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 [facility] [id number] 11:13:00 Test Item Value Reference Range Interpretation Comments GLUBED (test code = 64 MG/DL 70-110 L Performe d by certified GLUBED) casting 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 [facility] [id number] 08:45:00 Test Item Value Reference Range Interpretation Comments GLUBED (test code = 163 MG/DL 70-110 H Performe d by certified GLUBED) casting 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 [facility] CBC W/AUTO [id number] 04:56:00 Test Item Value Reference Range Interpretation Comments WHITE BLOOD CELL (test code = 6.4 x10 3/uL 4.5-11.0 N WBC) RED BLOOD CELL (test code = 3.45 x10 6/uL 3.54-5.02 L RBC) HEMOGLOBIN (test code = HGB) 10.6 g/dL 11.0-15.0 L HEMATOCRIT (test code = HCT) 33.8 % 33.0-45.0 MEAN CELL VOLUME (test code = 98.0 fL 81.0-99.0 MCV) MEAN CELL HGB (test code = MCH) 30.7 pg 27.0-33.0 N MEAN CELL HGB CONCETRATION 31.4 g/dL 33.0-37.0 L (test code = MCHC) RED CELL DISTRIBUTION WIDTH CV 14.7 % 11.5-14.5 H (test code = RDW) RED CELL DISTRIBUTION WIDTH SD 52.3 fL 37.0-54.0 N (test code = RDW-SD) PLATELET COUNT (test code = 191 x10 3/uL 150-400 N PLT) MEAN PLATELET VOLUME (test code 10.3 fL 7.0-9.0 H = MPV) NEUTROPHIL % (test code = NT%) 61.5 % 56.0-77.0 N IMMATURE GRANULOCYTE % (test 0.3 % 0.0-2.0 N code = IG%) LYMPHOCYTE % (test code = LY%) 19.4 % 14.0-32.0 N MONOCYTE % (test code = MO%) 10.3 % 4.8-9.0 H EOSINOPHIL % (test code = EO%) 8.0 % 0.3-3.7 H BASOPHIL % (test code = BA%) 0.5 % 0.0-2.0 N NUCLEATED RBC % (test code = 0.0 % 0-0 N NRBC%) NEUTROPHIL # (test code = NT#) 3.93 x10 3/uL 2.0-7.6 N IMMATURE GRANULOCYTE # (test 0.02 x10 3/uL 0.00-0.03 N code = IG#) LYMPHOCYTE # (test code = LY#) 1.24 x10 3/uL 1.0-3.8 N MONOCYTE # (test code = MO#) 0.66 x10 3/uL 0.1-0.8 N EOSINOPHIL # (test code = EO#) 0.51 x10 3/uL 0.0-0.2 H BASOPHIL # (test code = BA#) 0.03 x10 3/uL 0.0-0.2 N NUCLEATED RBC # (test code = 0.00 x10 3/uL 0.0-0.1 N NRBC#) MANUAL DIFF REQUIRED (test code NO = MDIFF) POC ARTERIAL BLOOD [id number] 02:47:00 Test Item Value Reference Range Interpretation Comments POC ARTERIAL BLOOD GAS PH (test 7.436 7.35-7.45 N code = POCPHA) POC ARTERIAL BLOOD GAS PCO2 (test 36.8 mmHg 35.0-45 N code = DTWXNA1B) POC TCO2 ARTERIAL (test code = 25.9 POCTCO2) POC ARTERIAL BLOOD GAS PO2 (test 50.8 mmHg 80-100.0 L code = TWAEU4K) POC HCO3 ARTERIAL (test code = 24.8 MMOL/L 22.0-26.0 N [id number]) POC BASE EXCESS (test code = 0.6 MMOL/L -4.0-4.0 N POCBEA) POC O2 SATURATION (test code = 86.9 % 90-100 L POCO2S) ABG DELIVERY (test code = CHRISTINA) Cannula ABG PATIENT RESP RATE (test code 20 /MIN = RRPATA) ABG SITE (test code = SITEA) R Brach JENNIFER'S TEST (test code = ALLENS) Positive BASIC METABOLIC [id number] 02:47:00 Test Item Value Reference Range Interpretation Comments SODIUM (test code = NA/ABG) MEQ/L 134-147 POTASSIUM (test code = K/ABG) MEQ/L 3.4-5.0 CHLORIDE (test code = CL/ABG) MEQ/L 100-108 CREATININE ABG (test code = CREAABG) mg/dL 0.6-1.0 POC IONIZED CALCIUM (test code = MMOL/L 1.12-1.32 POCCA) POC GLUCOSE (test code = POCGLU) MG/DL 70-110 [id number] 02:47:00 Test Item Value Reference Range Interpretation Comments HEMOGLOBIN (test code = HGB/ABG) G/DL 11.0-15.0 [id number] 02:47:00 Test Item Value Reference Range Interpretation Comments HEMATOCRIT (test code = HCT/ABG) % 33.0-45.0 POC LACTIC [id number] 02:47:00 Test Item Value Reference Range Interpretation Comments POC LACTIC ACID (test code = POCLAC) mmol/l 0.9-1.7 POC ARTERIAL BLOOD [id number] 02:47:00 Test Item Value Reference Range Interpretation Comments POC ARTERIAL BLOOD GAS PH (test 7.436 7.35-7.45 N code = POCPHA) POC ARTERIAL BLOOD GAS PCO2 (test 36.8 mmHg 35.0-45 N code = [id number]) POC TCO2 ARTERIAL (test code = 25.9 POCTCO2) POC ARTERIAL BLOOD GAS PO2 (test 50.8 mmHg 80-100.0 L code = SRFXJ8X) POC HCO3 ARTERIAL (test code = 24.8 MMOL/L 22.0-26.0 N [id number]) POC BASE EXCESS (test code = 0.6 MMOL/L -4.0-4.0 N POCBEA) POC O2 SATURATION (test code = 86.9 % 90-100 L POCO2S) ABG DELIVERY (test code = CHRISTINA) Cannula ABG PATIENT RESP RATE (test code 20 /MIN = RRPATA) ABG SITE (test code = SITEA) R Brach JENNIFER'S TEST (test code = ALLENS) Positive BASIC METABOLIC [id number] 02:47:00 Test Item Value Reference Range Interpretation Comments SODIUM (test code = NA/ABG) MEQ/L 134-147 POTASSIUM (test code = K/ABG) MEQ/L 3.4-5.0 CHLORIDE (test code = CL/ABG) MEQ/L 100-108 CREATININE ABG (test code = CREAABG) mg/dL 0.6-1.0 POC IONIZED CALCIUM (test code = MMOL/L 1.12-1.32 POCCA) POC GLUCOSE (test code = POCGLU) MG/DL 70-110 [id number] 02:47:00 Test Item Value Reference Range Interpretation Comments HEMOGLOBIN (test code = HGB/ABG) G/DL 11.0-15.0 [id number] 02:47:00 Test Item Value Reference Range Interpretation Comments HEMATOCRIT (test code = HCT/ABG) % 33.0-45.0 POC LACTIC [id number] 02:47:00 Test Item Value Reference Range Interpretation Comments POC LACTIC ACID (test code = 0.5 mmol/l 0.9-1.7 L POCLAC) POC ARTERIAL BLOOD [id number] 02:47:00 Test Item Value Reference Range Interpretation Comments POC ARTERIAL BLOOD GAS PH (test 7.436 7.35-7.45 N code = POCPHA) POC ARTERIAL BLOOD GAS PCO2 (test 36.8 mmHg 35.0-45 N code = [id number]) POC TCO2 ARTERIAL (test code = 25.9 POCTCO2) POC ARTERIAL BLOOD GAS PO2 (test 50.8 mmHg 80-100.0 L code = KAVZL8B) POC HCO3 ARTERIAL (test code = 24.8 MMOL/L 22.0-26.0 N [id number]) POC BASE EXCESS (test code = 0.6 MMOL/L -4.0-4.0 N POCBEA) POC O2 SATURATION (test code = 86.9 % 90-100 L POCO2S) ABG DELIVERY (test code = CHRISTINA) Cannula ABG PATIENT RESP RATE (test code 20 /MIN = RRPATA) ABG SITE (test code = SITEA) R Brach JENNIFER'S TEST (test code = ALLENS) Positive BASIC METABOLIC [id number] 02:47:00 Test Item Value Reference Range Interpretation Comments SODIUM (test code = NA/ABG) 137 MEQ/L 134-147 N POTASSIUM (test code = K/ABG) 3.9 MEQ/L 3.4-5.0 N CHLORIDE (test code = CL/ABG) 102 MEQ/L 100-108 N CREATININE ABG (test code = 1.8 mg/dL 0.6-1.0 H CREAABG) POC IONIZED CALCIUM (test code = 1.11 MMOL/L 1.12-1.32 L POCCA) POC GLUCOSE (test code = POCGLU) 168 MG/DL 70-110 H [id number] 02:47:00 Test Item Value Reference Range Interpretation Comments HEMOGLOBIN (test code = HGB/ABG) G/DL 11.0-15.0 [id number] 02:47:00 Test Item Value Reference Range Interpretation Comments HEMATOCRIT (test code = HCT/ABG) % 33.0-45.0 POC LACTIC [id number] 02:47:00 Test Item Value Reference Range Interpretation Comments POC LACTIC ACID (test code = 0.5 mmol/l 0.9-1.7 L POCLAC) POC ARTERIAL BLOOD [id number] 02:47:00 Test Item Value Reference Range Interpretation Comments POC ARTERIAL BLOOD GAS PH (test 7.436 7.35-7.45 N code = POCPHA) POC ARTERIAL BLOOD GAS PCO2 (test 36.8 mmHg 35.0-45 N code = [id number]) POC TCO2 ARTERIAL (test code = 25.9 POCTCO2) POC ARTERIAL BLOOD GAS PO2 (test 50.8 mmHg 80-100.0 L code = VZYPP6R) POC HCO3 ARTERIAL (test code = 24.8 MMOL/L 22.0-26.0 N [id number]) POC BASE EXCESS (test code = 0.6 MMOL/L -4.0-4.0 N POCBEA) POC O2 SATURATION (test code = 86.9 % 90-100 L POCO2S) ABG DELIVERY (test code = CHRISTINA) Cannula ABG PATIENT RESP RATE (test code 20 /MIN = RRPATA) ABG SITE (test code = SITEA) R Bola JENNIFER'S TEST (test code = ALLENS) Positive BASIC METABOLIC [id number] 02:47:00 Test Item Value Reference Range Interpretation Comments SODIUM (test code = NA/ABG) 137 MEQ/L 134-147 N POTASSIUM (test code = K/ABG) 3.9 MEQ/L 3.4-5.0 N CHLORIDE (test code = CL/ABG) 102 MEQ/L 100-108 N CREATININE ABG (test code = 1.8 mg/dL 0.6-1.0 H CREAABG) POC IONIZED CALCIUM (test code = 1.11 MMOL/L 1.12-1.32 L POCCA) POC GLUCOSE (test code = POCGLU) 168 MG/DL 70-110 H [id number] 02:47:00 Test Item Value Reference Range Interpretation Comments HEMOGLOBIN (test code = HGB/ABG) 10.1 G/DL 11.0-15.0 L [id number] 02:47:00 Test Item Value Reference Range Interpretation Comments HEMATOCRIT (test code = HCT/ABG) % 33.0-45.0 POC LACTIC [id number] 02:47:00 Test Item Value Reference Range Interpretation Comments POC LACTIC ACID (test code = 0.5 mmol/l 0.9-1.7 L POCLAC) POC ARTERIAL BLOOD [id number] 02:47:00 Test Item Value Reference Range Interpretation Comments POC ARTERIAL BLOOD GAS PH (test 7.436 7.35-7.45 N code = POCPHA) POC ARTERIAL BLOOD GAS PCO2 (test 36.8 mmHg 35.0-45 N code = OSXFTH2Y) POC TCO2 ARTERIAL (test code = 25.9 POCTCO2) POC ARTERIAL BLOOD GAS PO2 (test 50.8 mmHg 80-100.0 L code = TXNLZ5G) POC HCO3 ARTERIAL (test code = 24.8 MMOL/L 22.0-26.0 N [id number]) POC BASE EXCESS (test code = 0.6 MMOL/L -4.0-4.0 N POCBEA) POC O2 SATURATION (test code = 86.9 % 90-100 L POCO2S) ABG DELIVERY (test code = CHRISTINA) Cannula ABG PATIENT RESP RATE (test code 20 /MIN = RRPATA) ABG SITE (test code = SITEA) R Brach JENNIFER'S TEST (test code = ALLENS) Positive BASIC METABOLIC [id number] 02:47:00 Test Item Value Reference Range Interpretation Comments SODIUM (test code = NA/ABG) 137 MEQ/L 134-147 N POTASSIUM (test code = K/ABG) 3.9 MEQ/L 3.4-5.0 N CHLORIDE (test code = CL/ABG) 102 MEQ/L 100-108 N CREATININE ABG (test code = 1.8 mg/dL 0.6-1.0 H CREAABG) POC IONIZED CALCIUM (test code = 1.11 MMOL/L 1.12-1.32 L POCCA) POC GLUCOSE (test code = POCGLU) 168 MG/DL 70-110 H [id number] 02:47:00 Test Item Value Reference Range Interpretation Comments HEMOGLOBIN (test code = HGB/ABG) 10.1 G/DL 11.0-15.0 L [id number] 02:47:00 Test Item Value Reference Range Interpretation Comments HEMATOCRIT (test code = HCT/ABG) 30 % 33.0-45.0 L POC LACTIC [id number] 02:47:00 Test Item Value Reference Range Interpretation Comments POC LACTIC ACID (test code = 0.5 mmol/l 0.9-1.7 L POCLAC) [id number] 00:37:00 Test Item Value Reference Range Interpretation Comments GLUBED (test code = 203 MG/DL 70-110 H Performe d by certified GLUBED) casting 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 [facility] [id number] 17:37:00 Test Item Value Reference Range Interpretation Comments GLUBED (test code = 148 MG/DL 70-110 H Performe d by certified GLUBED) casting 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 [facility] - XR CHEST 2 [id number] 14:27:00 [facility] : 1940 Sex: F FAX: Norberto Schmidt [phone] [place]: St: ADM FAX: Bijal Monteiro MD [phone] FAX: Jose C Fenton MD [phone] Name: KARLENE HERNANDEZ [facility] [place] : 1940 Age/S: 80/F [address] [place] [address] Unit #: [id number] Loc: [address] [place] [id number] Phys: Bijal Nguyễn MD Acct: [id number] Dis Date: Status: ADM IN PHONE #: [phone] Exam Date: 02/24/2021 1414 FAX #: [phone] Reason: hypoxia EXAMS: CPT CODE: [id number] XR CHEST 2 V 12264 Clinical Indication: Hypoxia. Comparison:02/23/2021. Impression: Chest, single view. 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 Persistent, though improved bilateral coarse pulmonary opacities. No new pleural effusion or pneumothorax. Cardiac silhouette is of normal size. No acute osseous abnormality. SL: [id number] at 1427 Reported and signed by: Kayla Leal M.D. 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 CBC W/AUTO [id number] 10:43:00 Test Item Value Reference Range Interpretation Comments WHITE BLOOD CELL (test code = 6.5 x10 3/uL 4.5-11.0 N WBC) RED BLOOD CELL (test code = 2.15 x10 6/uL 3.54-5.02 L RBC) HEMOGLOBIN (test code = HGB) 6.7 g/dL 11.0-15.0 L HEMATOCRIT (test code = HCT) 21.8 % 33.0-45.0 L MEAN CELL VOLUME (test code = 101.4 fL 81.0-99.0 H MCV) MEAN CELL HGB (test code = MCH) 31.2 pg 27.0-33.0 N MEAN CELL HGB CONCETRATION 30.7 g/dL 33.0-37.0 L (test code = MCHC) RED CELL DISTRIBUTION WIDTH CV 15.9 % 11.5-14.5 H (test code = RDW) RED CELL DISTRIBUTION WIDTH SD 58.2 fL 37.0-54.0 H (test code = RDW-SD) PLATELET COUNT (test code = 211 x10 3/uL 150-400 N PLT) MEAN PLATELET VOLUME (test code 10.3 fL 7.0-9.0 H = MPV) NEUTROPHIL % (test code = NT%) 63.8 % 56.0-77.0 N IMMATURE GRANULOCYTE % (test 0.5 % 0.0-2.0 N code = IG%) LYMPHOCYTE % (test code = LY%) 17.8 % 14.0-32.0 N MONOCYTE % (test code = MO%) 9.5 % 4.8-9.0 H EOSINOPHIL % (test code = EO%) 7.8 % 0.3-3.7 H BASOPHIL % (test code = BA%) 0.6 % 0.0-2.0 N NUCLEATED RBC % (test code = 0.0 % 0-0 N NRBC%) NEUTROPHIL # (test code = NT#) 4.14 x10 3/uL 2.0-7.6 N IMMATURE GRANULOCYTE # (test 0.03 x10 3/uL 0.00-0.03 N code = IG#) LYMPHOCYTE # (test code = LY#) 1.16 x10 3/uL 1.0-3.8 N MONOCYTE # (test code = MO#) 0.62 x10 3/uL 0.1-0.8 N EOSINOPHIL # (test code = EO#) 0.51 x10 3/uL 0.0-0.2 H BASOPHIL # (test code = BA#) 0.04 x10 3/uL 0.0-0.2 N NUCLEATED RBC # (test code = 0.00 x10 3/uL 0.0-0.1 N NRBC#) MANUAL DIFF REQUIRED (test code NO = MDIFF) CBC W/AUTO [id number] 10:41:00 Test Item Value Reference Range Interpretation Comments WHITE BLOOD CELL (test code = x10 3/uL 4.5-11.0 WBC) RED BLOOD CELL (test code = RBC) x10 6/uL 3.54-5.02 HEMOGLOBIN (test code = HGB) g/dL 11.0-15.0 HEMATOCRIT (test code = HCT) % 33.0-45.0 MEAN CELL VOLUME (test code = fL 81.0-99.0 MCV) MEAN CELL HGB (test code = MCH) pg 27.0-33.0 MEAN CELL HGB CONCETRATION (test g/dL 33.0-37.0 code = MCHC) RED CELL DISTRIBUTION WIDTH CV % 11.5-14.5 (test code = RDW) PLATELET COUNT (test code = PLT) 211 x10 3/uL 150-400 N NEUTROPHIL % (test code = NT%) % 56.0-77.0 LYMPHOCYTE % (test code = LY%) % 14.0-32.0 NEUTROPHIL # (test code = NT#) x10 3/uL 2.0-7.6 LYMPHOCYTE # (test code = LY#) x10 3/uL 1.0-3.8 MANUAL DIFF REQUIRED (test code = MDIFF) COMPREHENSIVE METABOLIC [id number] 07:58:00 Test Item Value Reference Range Interpretation Comments SODIUM (test code = NA) 136 mEq/L 134-147 N POTASSIUM (test code = 4.5 mEq/L 3.4-5.0 N K) CHLORIDE (test code = 107 mEq/L 100-108 N CL) CARBON DIOXIDE (test 22 mEq/l 21-33 N code = CO2) ANION GAP (test code = 11 0-20 N GAP) GLUCOSE (test code = 204 mg/dL 70-110 H GLU) BLOOD UREA NITROGEN 24 mg/dL 7-18 H (test code = BUN) GLOMERULAR FILTRATION 25.4 70-80 L Units of measure = RATE (test code = GFR) ml/mi n/1.73 m2 CREATININE (test code = 1.9 mg/dL 0.6-1.3 H CREAT) TOTAL PROTEIN (test 5.9 g/dL 6.4-8.2 L code = PROT) ALBUMIN (test code = 2.80 g/dL 3.4-5.0 L ALB) CALCIUM (test code = 8.2 mg/dL 8.0-10.5 N CA) BILIRUBIN TOTAL (test 0.40 mg/dL 0.0-1.0 N code = BILT) SGOT/AST (test code = 11 IUnit/L 15-37 L AST) SGPT/ALT (test code = < 7 IUnit/L 30-65 L ALT) ALKALINE PHOSPHATASE 77 IUnit/L 20-125 N TOTAL (test code = ALKP) [id number] 06:32:00 Test Item Value Reference Range Interpretation Comments GLUBED (test code = 193 MG/DL 70-110 H Performe d by certified GLUBED) 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 - XR CHEST 1 [id number] 18:20:00 [facility] : 1940 Sex: F FAX: Bekah Wan [phone] [place]: St: ADM FAX: Jose C Simmons MD [phone] Name: KARLENE HERNANDEZ [facility] : 1940 Age/S: 80/F [address] [place] [address] Unit #: [id number] Loc: [place] [address] Phys: Bekah Wan Acct: [id number] Dis Date: Status: ADM IN PHONE #: [phone] Exam Date: 02/23/20211814 FAX #: [phone]: POST WATCHMAN EXAMS: CPT CODE: [id number] XR CHEST 1 V 96205 Portable single view AP chest INDICATION: Post watchman placement Comparison: 02/22/2020 chest x-ray FINDINGS: The cardiomediastinal silhouette is normal insize. Radiopaque cagelike device over the left infrahilar region correlates with the watchman device. Moderate right and mild left lung opacities appear greatest at lung bases and likely exaggerated by extrinsic soft tissue shadows. No acute bony finding is seen. IMPRESSION: 1. Watchman device placement. 2. Interval development of mild diffuse pulmonary opacities with persistent small right pleural effusion. Findings may be exaggerated by portable technique. Erect PA and lateral departmental radiographs can be obt ained to better evaluate as clinically indicated. SL: CHRISTOFER at 1820 Reported and signed by: Dario Pelaez M.D. 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 [facility] [id number] 13:38:00 Test Item Value Reference Range Interpretation Comments ACT-ISTAT (test code 252 SEC 74-137 H Perform ed by certified = ACTI) casting 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 [facility] [id number] 13:38:00 Test Item Value Reference Range Interpretation Comments ACT-ISTAT (test code 235 SEC 74-137 H Perform ed by certified = ACTI) casting 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 [facility] [id number] 11:19:00 Test Item Value Reference Range Interpretation Comments GLUBED (test code = 201 MG/DL 70-110 H Performe d by certified GLUBED) casting 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 Positiv e results do not rule out bacterial infection or co -infection with other viru ses. Negative result s do not preclude SARS-C oV-2 infection andsh ould not be used as the mady e basis for patient managementdecis ions. Negative result s must be combined with otherclinical observations, p atient history, and epidemiological information . Detection of SARS-CoV-2 RNA may be affe cted bysample collec tion methods, storag e conditions, and /or stageof infection. Jayla l RNA mutations, vacc inations, antiviraltherap eutics, antibiotics, chemotherapeuti c orimmunosuppres rhonda drugs have not been e valuated for effectson d etection. Results are for the identification of SARS-CoV-2 RNA usingthe Godinez M2000 Sy stem under the FDA Emergen cy UseAuthorizatio n. The testing is perf ormed by maria fernanda villagomez in the procedures for the Godinez M2000 molecular diagnostic SARS-CoV-2 karl johnson in vitro. - XR CHEST 2 [id number] 15:44:00 [facility] 1940 Sex: F FAX: Jose C Fenton MD [phone] [place]: St: PRE Name: KARLENE CABA [facility] : 1940 Age/S: 80/F [address] [place] [address] Unit #: [id number] Loc: [place] [address] Phys: Jose C Kruse MD Acct: [id number] Dis Date: Status: PRE [facility] [place] PHONE #: [phone] Exam Date: 02/21/2021 [facility] FAX #: [phone] Reason: PRE-OP WATCHMAN EXAMS: CPT CODE: [id number] XR CHEST 2 V 45657 Clinical Indication: Atrial fibrillation. Preoperative chest radiograph. Comparison: None available. Impression: Chest, 2 views. Lungs are hyperexpanded with flattening of the diaphragm. Blunting of the costophrenic angles may represent scarring or small volume pleural fluid. No pneumothorax. Cardiac silhouette is of normal size. No acute osseous abnormality. SL: [id number] at 1544 Reported and signed by: Kayla Leal M.D. CC: Jose C Kruse MD Technologist: Daphne Noguera RT(R) Trnscrd Date/Time/By: 02/21/2021 (2836) : By: [email or web address] Orig Print D/T: S: 02/21/2021 (8659) PAGE 1 [employer] [place] ReportBASIC METABOLIC [id number] 14:40:00 Test Item Value Reference Range Interpretation Comments SODIUM (test code = NA) 138 mEq/L 134-147 N POTASSIUM (test code = 4.6 mEq/L 3.4-5.0 N K) CHLORIDE (test code = 106 mEq/L 100-108 N CL) CARBON DIOXIDE (test 24 mEq/l 21-33 N code = CO2) ANION GAP (test code = 13 0-20 N GAP) GLUCOSE (test code = 190 mg/dL 70-110 H GLU) BLOOD UREA NITROGEN 30 mg/dL 7-18 H (test code = BUN) GLOMERULAR FILTRATION 27.0 70-80 L Units of measure = RATE (test code = GFR) ml/mi n/1.73 m2 CREATININE (test code = 1.8 mg/dL 0.6-1.3 H CREAT) CALCIUM (test code = 9.5 mg/dL 8.0-10.5 N CA) [id number] 14:40:00 Test Item Value Reference Range Interpretation Comments PREALBUMIN (test code = PREALB) 17.5 mg/dL 16.0-40.0 N PROTHROMBIN [id number] 14:36:00 Test Item Value Reference Range Interpretation Comments PROTHROMBIN TIME 13.7 SECONDS 9.3-12.9 H PATIENT (test code = PTP) INTERNATIONAL NORMAL 1.3 0.8-1.2 H TARGET RATIO (test code = INR BY IN DICATION INR) Indication INR1. Prophyl axis of venous thrombos is 2.0 - 3. 0 (orthopedic eduardo bubba), Prophylaxis of venous thrombos is (other than hig h-risk surgery), Terrie tment of Deep Vein Thrombosis/Pulm onary Embolism, Preve ntion of systemic emb olism - Tissue heart va lves, Acute Myocardia l Infarction (to prevent systemic embo lism), Valvular heart disease, Atri al Fibrillation, Bileaflet mecha nical valve in aortic position.2. Mec hanical prosthetic valv es (high risk), 2.5 - 3.5 Presence of Lupus Anticoagu lant or Antiphospholi pid Antibodies, Pre vention of systemic e mbolism - Acute Myocard ial Infarction (t o prevent recurre nt infarct). CBC W/AUTO [id number] 14:15:00 Test Item Value Reference Range Interpretation Comments WHITE BLOOD CELL (test code = 6.8 x10 3/uL 4.5-11.0 N WBC) RED BLOOD CELL (test code = 2.78 x10 6/uL 3.54-5.02 L RBC) HEMOGLOBIN (test code = HGB) 8.5 g/dL 11.0-15.0 L HEMATOCRIT (test code = HCT) 27.5 % 33.0-45.0 L MEAN CELL VOLUME (test code = 98.9 fL 81.0-99.0 N MCV) MEAN CELL HGB (test code = MCH) 30.6 pg 27.0-33.0 N MEAN CELL HGB CONCETRATION 30.9 g/dL 33.0-37.0 L (test code = MCHC) RED CELL DISTRIBUTION WIDTH CV 15.6 % 11.5-14.5 H (test code = RDW) RED CELL DISTRIBUTION WIDTH SD 56.4 fL 37.0-54.0 H (test code = RDW-SD) PLATELET COUNT (test code = 259 x10 3/uL 150-400 N PLT) MEAN PLATELET VOLUME (test code 10.5 fL 7.0-9.0 H = MPV) NEUTROPHIL % (test code = NT%) 67.4 % 56.0-77.0 N IMMATURE GRANULOCYTE % (test 0.6 % 0.0-2.0 N code = IG%) LYMPHOCYTE % (test code = LY%) 18.4 % 14.0-32.0 N MONOCYTE % (test code = MO%) 8.7 % 4.8-9.0 N EOSINOPHIL % (test code = EO%) 4.0 % 0.3-3.7 H BASOPHIL % (test code = BA%) 0.9 % 0.0-2.0 N NUCLEATED RBC % (test code = 0.0 % 0-0 N NRBC%) NEUTROPHIL # (test code = NT#) 4.57 x10 3/uL 2.0-7.6 N IMMATURE GRANULOCYTE # (test 0.04 x10 3/uL 0.00-0.03 H code = IG#) LYMPHOCYTE # (test code = LY#) 1.25 x10 3/uL 1.0-3.8 N MONOCYTE # (test code = MO#) 0.59 x10 3/uL 0.1-0.8 N EOSINOPHIL # (test code = EO#) 0.27 x10 3/uL 0.0-0.2 H BASOPHIL # (test code = BA#) 0.06 x10 3/uL 0.0-0.2 N NUCLEATED RBC # (test code = 0.00 x10 3/uL 0.0-0.1 N NRBC#) MANUAL DIFF REQUIRED (test code NO = MDIFF) CBC W/AUTO [id number] 14:14:00 Test Item Value Reference Range Interpretation Comments WHITE BLOOD CELL (test code = x10 3/uL 4.5-11.0 WBC) RED BLOOD CELL (test code = RBC) x10 6/uL 3.54-5.02 HEMOGLOBIN (test code = HGB) g/dL 11.0-15.0 HEMATOCRIT (test code = HCT) % 33.0-45.0 MEAN CELL VOLUME (test code = fL 81.0-99.0 MCV) MEAN CELL HGB (test code = MCH) pg 27.0-33.0 MEAN CELL HGB CONCETRATION (test g/dL 33.0-37.0 code = MCHC) RED CELL DISTRIBUTION WIDTH CV % 11.5-14.5 (test code = RDW) PLATELET COUNT (test code = PLT) 259 x10 3/uL 150-400 N NEUTROPHIL % (test code = NT%) % 56.0-77.0 LYMPHOCYTE % (test code = LY%) % 14.0-32.0 NEUTROPHIL # (test code = NT#) x10 3/uL 2.0-7.6 LYMPHOCYTE # (test code = LY#) x10 3/uL 1.0-3.8 MANUAL DIFF REQUIRED (test code = MDIFF) VASCULAR DIAGRAM -[id number] 06:55:41Ordered by an unspecified provider.[facility] - [id number] 10:46:35Ordered by an unspecified provider.[facility] - SCAN 2021-02-09 10:46:34Ordered by an unspecified provider.[facility]ucose [id number] 17:15:00 Test Item Value Reference Range Interpretation Comments POC-Glucose Meter (test 221 mg/dL 70-110 H : TE STED AT [facility] code = 1538) [address] [facility], 770 30: Heart Doctor/Techni arnold ID = [id number] for TURNER DUNCAN Lab Interpretation (test Abnormal code = 73577-6) [facility] [id number] 17:15:00 Test Item Value Reference Range Interpretation Comments POC-GLUCOSE METER 221 mg/dL 70-110 H : TESTED A T [facility] 6720 (BEAKER) (test code = [facility], 1538) [address]: Heart Doctor/Techni arnold ID = [id number] for GREYSON HN, TURNER POCT-GLUCOSE [id number] 12:18:00 Test Item Value Reference Range Interpretation Comments POC-GLUCOSE METER 201 mg/dL 70-110 H : TESTED A T [facility] 6720 (BEAKER) (test code = [facility], 1538) [address]: Heart Doctor/Techni arnold ID = [id number] for GREYSON HN, TURNER POCT-GLUCOSE [id number] 07:41:00 Test Item Value Reference Range Interpretation Comments POC-GLUCOSE METER 131 mg/dL 70-110 H : TESTED A T [facility] 6720 (BEAKER) (test code = [facility], 1538) [address]: Heart Doctor/Techni arnold ID = [id number] for TURNER SALINAS Basic Metabolic [id number] 06:48:00 Test Item Value Reference Range Interpretation Comments Sodium (test code = 136 meq/L 273-344 5430-2) Potassium (test code = 4.1 meq/L 3.5-5.1 2823-3) Chloride (test code = 103 meq/L 98-107 2075-0) CO2 (test code = 22 meq/L 22-29 2028-9) BUN (test code = 36 mg/dL 7-21 H 3094-0) Creatinine (test code 2.43 mg/dL 0.57-1.25 H = 2160-0) Glucose (test code = 126 mg/dL 70-105 H 2345-7) Calcium (test code = 8.7 mg/dL 8.4-10.2 39173-0) EGFR (test code = 19 mL/min/1.73 [place] [address]-0) NOT ACCURATE CREATININE CLEARANCE IN PREDICTING GLOMERULAR FILTRATION RATE . ESTIMATED GFR I S NOT APPLICABLE FOR DIALYSIS PATIENTS. JACKIE (test code = JACKIE) Heart Doctor ID - PIAYA L Lab Interpretation Abnormal (test code = 53727-6) [facility] METABOLIC [id number] 06:48:00 Test Item Value Reference Range Interpretation Comments SODIUM (BEAKER) 136 meq/L 136-145 (test code = 381) POTASSIUM (BEAKER) 4.1 meq/L 3.5-5.1 (test code = 379) CHLORIDE (BEAKER) 103 meq/L 98-107 (test code = 382) CO2 (BEAKER) (test 22 meq/L -29 code = 355) BLOOD UREA NITROGEN 36 mg/dL 7-21 H (BEAKER) (test code = 354) CREATININE (BEAKER) 2.43 mg/dL 0.57-1.25 H (test code = 358) GLUCOSE RANDOM 126 mg/dL 70-105 H (BEAKER) (test code = 652) CALCIUM (BEAKER) 8.7 mg/dL 8.4-10.2 (test code = 697) EGFR (BEAKER) (test 19 mL/min/1.73 ESTIMA ROSALIA GFR IS code = 1092) sq m NOT ACCURATE CREATININE CLEARANCE IN PREDICTING GLOMERULAR FILTRATION RATE . ESTIMATED GFR I S NOT APPLICABLE FOR DIALYSIS PATIEN TS. Heart Doctor ID - MARK LB-type Natriuretic Factor (BNP)2021-02-07 06:42:00 Test Item Value Reference Range Interpretation Comments BNP (test code = 66037-8) 817 pg/mL 0-100 H JACKIE (test code = JACKIE) Heart Doctor ID - DALILA M Lab Interpretation (test Abnormal code = 26233-5) [facility] NAT[facility]URET[facility] FACTOR (BNP)2021-02-07 06:42:00 Test Item Value Reference Range Interpretation Comments B-TYPE NATRIURETIC PEPTIDE (BEAKER) 817 pg/mL 0-100 H (test code = 700) Heart Doctor ID - DALILA MHepatic function [id number] 06:41:00 Test Item Value Reference Range Interpretation Comments Protein, Total (test 6.7 See_Comment [Autom ated code = 2885-2) message] The system which generated this result transmit rosalia reference range : 6.0 - 8.3 gm/dL . The reference range was not u sed to interpret th is result as normal/abnormal . Albumin (test code = 2.9 g/dL 3.5-5 L 85773-8) Total Bilirubin (test 0.4 mg/dL 0.2-1.2 code = 1975-2) Bilirubin, Direct 0.2 mg/dL 0.1-0.5 (test code = 1968-7) Alkaline Phosphatase 77 U/L 40-150 (test code = 6768-6) AST (test code = 32 U/L 5-34 1920-8) ALT (test code = 22 U/L 6-55 1742-6) JACKIE (test code = JACKIE) Heart Doctor ID - MARK L Lab Interpretation Abnormal (test code = 26053-7) [facility] Center[facility]AT[facility] FUNCTION [id number] 06:41:00 Test Item Value Reference Range Interpretation Comments TOTAL PROTEIN (BEAKER) (test code = 6.7 gm/dL 6.0-8.3 770) ALBUMIN (BEAKER) (test code = 1145) 2.9 g/dL 3.5-5.0 L BILIRUBIN TOTAL (BEAKER) (test code 0.4 mg/dL 0.2-1.2 = 377) BILIRUBIN DIRECT (BEAKER) (test 0.2 mg/dL 0.1-0.5 code = 706) ALKALINE PHOSPHATASE (BEAKER) (test 77 U/L 40-150 code = 346) AST (SGOT) (BEAKER) (test code = 32 U/L 5-34 353) ALT (SGPT) (BEAKER) (test code = 22 U/L 6-55 347) Heart Doctor ID - MARK Castillo [id number] 06:37:00 Test Item Value Reference Range Interpretation Comments Troponin I (test code = 5.13 ng/mL 0-0.03 37063-5) JACKIE (test code = JACKIE) Troponin I (TnI) levels must be interpreted in the context of the presenting symptoms and the clinical findings. Elevated TnI levels indicate myocardial damage, but are not specific for ischemic heart disease. Elevated TnI levels are seen in patients with other cardiac conditions (including myocarditis and congestive heart failure), and slight TnI elevations occur in patients with other conditions, including sepsis, renal failure, acidosis, acute neurological disease, and persistent tachyarrhythmia.Opera tor ID - DALILA M Lab Interpretation (test Abnormal code = 83672-8) [facility] [id number] 06:37:00 Test Item Value Reference Range Interpretation Comments TROPONIN I (BEAKER) (test code = 5.13 ng/mL 0.00-0.03 397) Troponin I (TnI) levels must be interpreted in the context of the presenting symptoms and the clinical findings. Elevated TnI levels indicate myocardial damage, but are not specific for ischemic heart disease. Elevated TnI levels are seen in patients with other cardiac conditions (including myocarditis and congestive heart failure), and slight TnI elevations occur in patients with other conditions, including sepsis, renal failure, acidosis, acute neurological disease, and persistent tachyarrhythmia.Heart Doctor ID - DALILA MCBC (Hemogram only) 2021-02-07 05:57:00 Test Item Value Reference Range Interpretation Comments WBC (test code = 6690-2) 4.9 See_Comment [A utomated message] The system [employer] generated this result transmitted ref erence range: 3.5 - 10 .5 K/L. The refe rence range was not u sed to interpret this result as normal/abnor mal. RBC (test code = 789-8) 2.64 See_Comment L [Au tomated message] The system [employer] generated this result transmitted ref erence range: 3.93 - 5 .22 M/L. The refe rence range was not u sed to interpret this result as normal/abnor mal. MCHC (test code = 786-4) 31.9 See_Comment L [A utomated message] The system [employer] generated this result transmitted ref erence range: 32.2 - 3 5.5 GM/DL. The refe rence range was not u sed to interpret this result as normal/abnor mal. Hematocrit (test code = 24.8 % 34.1-44.9 L 4544-3) MCV (test code = 787-2) 93.9 fL 79.4-94.8 MCH (test code = 785-6) 29.9 pg 25.6-32.2 RDW (test code = 788-0) 14.0 % 11.7-14.4 Platelets (test code = 376 See_Comment [Aut omated message] 777-3) The system [employer] generated this result transmitted ref erence range: 150 - 45 0 K/CU MM. The referen ce range was not u sed to interpret this result as normal/abnor mal. MPV (test code = 10.3 fL 9.4-12.3 79560-9) nRBC (test code = 413) 0 See_Comment [Aut omated message] The system [employer] generated this result transmitted ref erence range: 0 - 0 /1 00 WBC. The refere nce range was not u sed to interpret this result as normal/abnor mal. Lab Interpretation (test Abnormal code = 21493-4) [facility] (HEMOGRAM ONLY)2021-02-07 05:57:00 Test Item Value Reference Range Interpretation Comments WHITE BLOOD CELL COUNT (BEAKER) 4.9 K/ L 3.5-10.5 (test code = 775) RED BLOOD CELL COUNT (BEAKER) 2.64 M/ L 3.93-5.22 L (test code = 761) HEMOGLOBIN (BEAKER) (test code = 7.9 GM/DL 11.2-15.7 L 410) HEMATOCRIT (BEAKER) (test code = 24.8 % 34.1-44.9 L 411) MEAN CORPUSCULAR VOLUME (BEAKER) 93.9 fL 79.4-94.8 (test code = 753) MEAN CORPUSCULAR HEMOGLOBIN 29.9 pg 25.6-32.2 (BEAKER) (test code = 751) MEAN CORPUSCULAR HEMOGLOBIN CONC 31.9 GM/DL 32.2-35.5 L (BEAKER) (test code = 752) RED CELL DISTRIBUTION WIDTH 14.0 % 11.7-14.4 (BEAKER) (test code = 412) PLATELET COUNT (BEAKER) (test 376 K/CU MM 150-450 code = 756) MEAN PLATELET VOLUME (BEAKER) 10.3 fL 9.4-12.3 (test code = 754) NUCLEATED RED BLOOD CELLS 0 /100 WBC 0-0 (BEAKER) (test code = 413) POCT-GLUCOSE [id number] 21:08:00 Test Item Value Reference Range Interpretation Comments POC-GLUCOSE METER 264 mg/dL 70-110 H : TESTED A T [facility] 6720 (BEAKER) (test code = [facility], 153) [address]: Heart Doctor/Techni arnold ID = [id number] for NIRAV WOMACK POCT-GLUCOSE [id number] 16:42:00 Test Item Value Reference Range Interpretation Comments POC-GLUCOSE METER 249 mg/dL 70-110 H : TESTED A T [facility] 6720 (BEAKER) (test code = [facility], 153) 0[address]: Heart Doctor/Techni arnold ID = [id number] for BR NELLY, IVÁN POCT-GLUCOSE [id number] 13:04:00 Test Item Value Reference Range Interpretation Comments POC-GLUCOSE METER 139 mg/dL 70-110 H : TESTED A T [facility] 6720 (BEAKER) (test code = [facility] [employer] [facility], 153) 457[address]: Heart Doctor/Techni arnold ID = [id number] for BR ITTEN, IVÁN POCT-GLUCOSE [id number] 08:04:00 Test Item Value Reference Range Interpretation Comments POC-GLUCOSE METER 111 mg/dL 70-110 H : TESTED A T [facility] 6720 (BEAKER) (test code = [place], 1538) [address]: Heart Doctor/Techni arnold ID = [id number] for IVÁN CUELLAR BASIC METABOLIC [id number] 05:32:00 Test Item Value Reference Range Interpretation Comments SODIUM (BEAKER) 138 meq/L 136-145 (test code = 381) POTASSIUM (BEAKER) 4.2 meq/L 3.5-5.1 (test code = 379) CHLORIDE (BEAKER) 103 meq/L 98-107 (test code = 382) CO2 (BEAKER) (test 24 meq/L 22-29 code = 355) BLOOD UREA NITROGEN 44 mg/dL 7-21 H (BEAKER) (test code = 354) CREATININE (BEAKER) 3.09 mg/dL 0.57-1.25 H (test code = 358) GLUCOSE RANDOM 119 mg/dL 70-105 H (BEAKER) (test code = 652) CALCIUM (BEAKER) 8.7 mg/dL 8.4-10.2 (test code = 697) EGFR (BEAKER) (test 14 mL/min/1.73 ESTIMA ROSALIA GFR IS code = 1092) sq m NOT ACCURATE CREATININE CLEARANCE IN PREDICTING GLOMERULAR FILTRATION RATE . ESTIMATED GFR I S NOT APPLICABLE FOR DIALYSIS PATIEN TS. [facility] ID - DALILA EPATIC FUNCTION [id number] 05:30:00 Test Item Value Reference Range Interpretation Comments TOTAL PROTEIN (BEAKER) (test code = 6.9 gm/dL 6.0-8.3 770) ALBUMIN (BEAKER) (test code = 1145) 3.0 g/dL 3.5-5.0 L BILIRUBIN TOTAL (BEAKER) (test code 0.3 mg/dL 0.2-1.2 = 377) BILIRUBIN DIRECT (BEAKER) (test 0.2 mg/dL 0.1-0.5 code = 706) ALKALINE PHOSPHATASE (BEAKER) (test 92 U/L 40-150 code = 346) AST (SGOT) (BEAKER) (test code = 52 U/L 5-34 H 353) ALT (SGPT) (BEAKER) (test code = 32 U/L 6-55 347) [facility] ID - DALILA [facility] (HEMOGRAM ONLY)[id number] 04:58:00 Test Item Value Reference Range Interpretation Comments WHITE BLOOD CELL COUNT (BEAKER) 5.9 K/ L 3.5-10.5 (test code = 775) RED BLOOD CELL COUNT (BEAKER) 2.77 M/ L 3.93-5.22 L (test code = 761) HEMOGLOBIN (BEAKER) (test code = 8.1 GM/DL 11.2-15.7 L 410) HEMATOCRIT (BEAKER) (test code = 25.1 % 34.1-44.9 L 411) MEAN CORPUSCULAR VOLUME (BEAKER) 90.6 fL 79.4-94.8 (test code = 753) MEAN CORPUSCULAR HEMOGLOBIN 29.2 pg 25.6-32.2 (BEAKER) (test code = 751) MEAN CORPUSCULAR HEMOGLOBIN CONC 32.3 GM/DL 32.2-35.5 (BEAKER) (test code = 752) RED CELL DISTRIBUTION WIDTH 13.5 % 11.7-14.4 (BEAKER) (test code = 412) PLATELET COUNT (BEAKER) (test 362 K/CU MM 150-450 code = 756) MEAN PLATELET VOLUME (BEAKER) 10.6 fL 9.4-12.3 (test code = 754) NUCLEATED RED BLOOD CELLS 0 /100 WBC 0-0 (BEAKER) (test code = 413) POCT-GLUCOSE [id number] 16:58:00 Test Item Value Reference Range Interpretation Comments POC-GLUCOSE METER 213 mg/dL 70-110 H : TESTED A T [facility] 6720 (BEAKER) (test code = [facility], 1538) [address]: Heart Doctor/Techni arnold ID = [id number] for WOODARD-BRENANN, CELENA POCT-GLUCOSE [id number] 12:09:00 Test Item Value Reference Range Interpretation Comments POC-GLUCOSE METER 202 mg/dL 70-110 H : TESTED A T [facility] 6720 (BEAKER) (test code = [facility], 1538) [address]: Heart Doctor/Techni arnold ID = [id number] for WOODARD-BRENNAN, CELENA POCT-GLUCOSE [id number] 07:45:00 Test Item Value Reference Range Interpretation Comments POC-GLUCOSE METER 81 mg/dL 70-110 : TESTED A T [facility] 6720 (BEAKER) (test code = [place], 1538) [address]: Heart Doctor/Techni arnold ID = [id number] for CELENA BRANDT BASIC METABOLIC [id number] 04:54:00 Test Item Value Reference Range Interpretation Comments SODIUM (BEAKER) 136 meq/L 136-145 (test code = 381) POTASSIUM (BEAKER) 4.0 meq/L 3.5-5.1 (test code = 379) CHLORIDE (BEAKER) 101 meq/L 98-107 (test code = 382) CO2 (BEAKER) (test 24 meq/L 22-29 code = 355) BLOOD UREA NITROGEN 45 mg/dL 7-21 H (BEAKER) (test code = 354) CREATININE (BEAKER) 3.52 mg/dL 0.57-1.25 H (test code = 358) GLUCOSE RANDOM 81 mg/dL 70-105 (BEAKER) (test code = 652) CALCIUM (BEAKER) 8.5 mg/dL 8.4-10.2 (test code = 697) EGFR (BEAKER) (test 12 mL/min/1.73 ESTIMA ROSALIA GFR IS code = 1092) sq m NOT ACCURATE CREATININE CLEARANCE IN PREDICTING GLOMERULAR FILTRATION RATE . ESTIMATED GFR I S NOT APPLICABLE FOR DIALYSIS PATIEN TS. Heart Doctor ID - [id number] 04:45:00 Test Item Value Reference Range Interpretation Comments Magnesium (test code = 1.8 mg/dL 1.6-2.6 33152-5) JACKIE (test code = JACKIE) Heart Doctor ID - ADMIN Lab Interpretation (test Normal code = 79586-6) [facility] 04:45:00 Test Item Value Reference Range Interpretation Comments Phosphorus (test code = 3.6 mg/dL 2.3-4.7 2777-1) JACKIE (test code = JACKIE) Heart Doctor ID - ADMIN Lab Interpretation (test Normal code = 98241-0) [facility]2021-[facility]-27 04:45:00 Test Item Value Reference Range Interpretation Comments MAGNESIUM (BEAKER) (test code = 1.8 mg/dL 1.6-2.6 627) Heart Doctor ID - [id number] 04:45:00 Test Item Value Reference Range Interpretation Comments PHOSPHORUS (BEAKER) (test code = 3.6 mg/dL 2.3-4.7 604) Heart Doctor ID - ADMINHEPATIC FUNCTION [id number] 04:45:00 Test Item Value Reference Range Interpretation Comments TOTAL PROTEIN (BEAKER) (test code = 6.6 gm/dL 6.0-8.3 770) ALBUMIN (BEAKER) (test code = 1145) 2.8 g/dL 3.5-5.0 L BILIRUBIN TOTAL (BEAKER) (test code 0.3 mg/dL 0.2-1.2 = 377) BILIRUBIN DIRECT (BEAKER) (test 0.2 mg/dL 0.1-0.5 code = 706) ALKALINE PHOSPHATASE (BEAKER) (test 79 U/L 40-150 code = 346) AST (SGOT) (BEAKER) (test code = 67 U/L 5-34 H 353) ALT (SGPT) (BEAKER) (test code = 35 U/L 6-55 347) Heart Doctor ID - ADMINCBC with platelet count + automated [id number] 04:28:00 Test Item Value Reference Range Interpretation Comments WBC (test code = 6690-2) 6.6 See_Comment [A utomated message] The system [employer] generated this result transmitted ref erence range: 3.5 - 10 .5 K/L. The refe rence range was not u sed to interpret this result as normal/abnor mal. RBC (test code = 789-8) 2.77 See_Comment L [Au tomated message] The system [employer] generated this result transmitted ref erence range: 3.93 - 5 .22 M/L. The refe rence range was not u sed to interpret this result as normal/abnor mal. MCHC (test code = 786-4) 33.3 See_Comment L [A utomated message] The system [employer] generated this result transmitted ref erence range: 32.2 - 3 5.5 GM/DL. The refe rence range was not u sed to interpret this result as normal/abnor mal. Hematocrit (test code = 24.6 % 34.1-44.9 L 4544-3) MCV (test code = 787-2) 88.8 fL 79.4-94.8 MCH (test code = 785-6) 29.6 pg 25.6-32.2 RDW (test code = 788-0) 13.2 % 11.7-14.4 Platelets (test code = 300 See_Comment [Aut omated message] 777-3) The system [employer] generated this result transmitted ref erence range: 150 - 45 0 K/CU MM. The referen ce range was not u sed to interpret this result as normal/abnor mal. MPV (test code = 10.3 fL 9.4-12.3 07511-3) nRBC (test code = 413) 0 See_Comment [Aut omated message] The system [employer] generated this result transmitted ref erence range: 0 - 0 /1 00 WBC. The refere nce range was not u sed to interpret this result as normal/abnor mal. % Neutros (test code = 59 % 429) % Lymphs (test code = 20 % 430) % Monos (test code = 13 % 431) % Eos (test code = 432) 8 % % Baso (test code = 437) 0 % # Neutros (test code = 3.90 See_Comment [Aut omated message] 670) The system [employer] generated this result transmitted ref erence range: 1.56 - 6 .13 K/L. The refe rence range was not u sed to interpret this result as normal/abnor mal. # Lymphs (test code = 1.29 See_Comment [Auto mated message] 414) The system [employer] generated this result transmitted ref erence range: 1.18 - 3 .74 K/L. The refe rence range was not u sed to interpret this result as normal/abnor mal. # Monos (test code = 0.84 See_Comment H [Autom ated message] 415) The system [employer] generated this result transmitted ref erence range: 0.24 - 0 .36 K/L. The refe rence range was not u sed to interpret this result as normal/abnor mal. # Eos (test code = 416) 0.49 See_Comment H [Au tomated message] The system [employer] generated this result transmitted ref erence range: 0.04 - 0 .36 K/L. The refe rence range was not u sed to interpret this result as normal/abnor mal. # Baso (test code = 417) 0.02 See_Comment [A utomated message] The system [employer] generated this result transmitted ref erence range: 0.01 - 0 .08 K/L. The refe rence range was not u sed to interpret this result as normal/abnor mal. Immature 0 % 0-1 Granulocytes-Relative (test code = 2801) Lab Interpretation (test Abnormal code = 01818-1) [facility] W/PLT COUNT & AUTO [id number] 04:28:00 Test Item Value Reference Range Interpretation Comments WHITE BLOOD CELL COUNT (BEAKER) 6.6 K/ L 3.5-10.5 (test code = 775) RED BLOOD CELL COUNT (BEAKER) 2.77 M/ L 3.93-5.22 L (test code = 761) HEMOGLOBIN (BEAKER) (test code = 8.2 GM/DL 11.2-15.7 L 410) HEMATOCRIT (BEAKER) (test code = 24.6 % 34.1-44.9 L 411) MEAN CORPUSCULAR VOLUME (BEAKER) 88.8 fL 79.4-94.8 (test code = 753) MEAN CORPUSCULAR HEMOGLOBIN 29.6 pg 25.6-32.2 (BEAKER) (test code = 751) MEAN CORPUSCULAR HEMOGLOBIN CONC 33.3 GM/DL 32.2-35.5 (BEAKER) (test code = 752) RED CELL DISTRIBUTION WIDTH 13.2 % 11.7-14.4 (BEAKER) (test code = 412) PLATELET COUNT (BEAKER) (test 300 K/CU MM 150-450 code = 756) MEAN PLATELET VOLUME (BEAKER) 10.3 fL 9.4-12.3 (test code = 754) NUCLEATED RED BLOOD CELLS 0 /100 WBC 0-0 (BEAKER) (test code = 413) NEUTROPHILS RELATIVE PERCENT 59 % (BEAKER) (test code = 429) LYMPHOCYTES RELATIVE PERCENT 20 % (BEAKER) (test code = 430) MONOCYTES RELATIVE PERCENT 13 % (BEAKER) (test code = 431) EOSINOPHILS RELATIVE PERCENT 8 % (BEAKER) (test code = 432) BASOPHILS RELATIVE PERCENT 0 % (BEAKER) (test code = 437) NEUTROPHILS ABSOLUTE COUNT 3.90 K/ L 1.56-6.13 (BEAKER) (test code = 670) LYMPHOCYTES ABSOLUTE COUNT 1.29 K/ L 1.18-3.74 (BEAKER) (test code = 414) MONOCYTES ABSOLUTE COUNT (BEAKER) 0.84 K/ L 0.24-0.36 H (test code = 415) EOSINOPHILS ABSOLUTE COUNT 0.49 K/ L 0.04-0.36 H (BEAKER) (test code = 416) BASOPHILS ABSOLUTE COUNT (BEAKER) 0.02 K/ L 0.01-0.08 (test code = 417) IMMATURE GRANULOCYTES-RELATIVE 0 % 0-1 PERCENT (BEAKER) (test code = 2801) POCT-GLUCOSE [id number] 17:20:00 Test Item Value Reference Range Interpretation Comments POC-GLUCOSE METER 194 mg/dL 70-110 H : TESTED A T [facility] 6720 (BEAKER) ([place], [address]: code = 1538) Heart Doctor/Techni arnold ID = [id number] for MAXIM LANDON IN POCT-GLUCOSE [id number] 11:44:00 Test Item Value Reference Range Interpretation Comments POC-GLUCOSE METER 260 mg/dL 70-110 H : TESTED A T [facility] 6720 (BEAKER) ([place], [address]: code = 1538) Heart Doctor/Techni arnold ID = [id number] for MAXIM LANDON IN POCT-GLUCOSE [id number] 07:26:00 Test Item Value Reference Range Interpretation Comments POC-GLUCOSE METER 143 mg/dL 70-110 H : TESTED A T [facility] 6720 (BEAKER) ([place], [address]: code = 1538) Heart Doctor/Techni arnold ID = [id number] for MAXIM LANDON IN Comprehensive metabolic [id number] 04:27:00 Test Item Value Reference Range Interpretation Comments Protein, Total (test 6.7 See_Comment [Autom ated code = 2885-2) message] The system which generated this result transmit rosalia reference range : 6.0 - 8.3 gm/dL . The reference range was not u sed to interpret th is result as normal/abnormal . Albumin (test code = 2.9 g/dL 3.5-5 L 42715-9) Alkaline Phosphatase 83 U/L 40-150 (test code = 6768-6) Total Bilirubin (test 0.4 mg/dL 0.2-1.2 code = 1975-2) Sodium (test code = 132 meq/L 136-145 L 2951-2) Potassium (test code 4.2 meq/L 3.5-5.1 = 2823-3) Chloride (test code = 97 meq/L 98-107 L 2075-0) CO2 (test code = 24 meq/L 22-29 2028-9) BUN (test code = 39 mg/dL 7-21 H 3094-0) Creatinine (test code 3.33 mg/dL 0.57-1.25 H = 2160-0) Glucose (test code = 149 mg/dL 70-105 H 2345-7) Calcium (test code = 8.6 mg/dL 8.4-10.2 04704-4) AST (test code = 71 U/L 5-34 H 1920-8) ALT (test code = 35 U/L 6-55 1742-6) EGFR (test code = 13 mL/min/1.73 [place] [address]-6) NOT ACCURATE CREATININE CLEARANCE IN PREDICTING GLOMERULAR FILTRATION RATE . ESTIMATED GFR I S NOT APPLICABLE FOR DIALYSIS PATIEN TSFrancis JACKIE (test code = JACKIE) Heart Doctor ID - EDASI Lab Interpretation Abnormal (test code = 98920-1) [facility] Center[facility]PRE[facility] METABOLIC [id number] 04:27:00 Test Item Value Reference Range Interpretation Comments TOTAL PROTEIN 6.7 gm/dL 6.0-8.3 (BEAKER) (test code = 770) ALBUMIN (BEAKER) 2.9 g/dL 3.5-5.0 L (test code = 1145) ALKALINE PHOSPHATASE 83 U/L 40-150 (BEAKER) (test code = 346) BILIRUBIN TOTAL 0.4 mg/dL 0.2-1.2 (BEAKER) (test code = 377) SODIUM (BEAKER) (test 132 meq/L 136-145 L code = 381) POTASSIUM (BEAKER) 4.2 meq/L 3.5-5.1 (test code = 379) CHLORIDE (BEAKER) 97 meq/L 98-107 L (test code = 382) CO2 (BEAKER) (test 24 meq/L 22-29 code = 355) BLOOD UREA NITROGEN 39 mg/dL 7-21 H (BEAKER) (test code = 354) CREATININE (BEAKER) 3.33 mg/dL 0.57-1.25 H (test code = 358) GLUCOSE RANDOM 149 mg/dL 70-105 H (BEAKER) (test code = 652) CALCIUM (BEAKER) 8.6 mg/dL 8.4-10.2 (test code = 697) AST (SGOT) (BEAKER) 71 U/L 5-34 H (test code = 353) ALT (SGPT) (BEAKER) 35 U/L 6-55 (test code = 347) EGFR (BEAKER) (test 13 mL/min/1.73 ESTIMA ROSALIA GFR IS code = 1092) sq m NOT ACCURATE CREATININE CLEARANCE IN PREDICTING GLOMERULAR FILTRATION RATE . ESTIMATED GFR I S NOT APPLICABLE FOR DIALYSIS PATIEN TS. Heart Doctor ID - [id number] 04:08:00 Test Item Value Reference Range Interpretation Comments MAGNESIUM (BEAKER) (test code = 1.7 mg/dL 1.6-2.6 627) Heart Doctor ID - [id number] 04:08:00 Test Item Value Reference Range Interpretation Comments PHOSPHORUS (BEAKER) (test code = 3.7 mg/dL 2.3-4.7 604) Heart Doctor ID - EDASIHEPATIC FUNCTION [id number] 04:08:00 Test Item Value Reference Range Interpretation Comments TOTAL PROTEIN (BEAKER) (test code = 6.7 gm/dL 6.0-8.3 770) ALBUMIN (BEAKER) (test code = 1145) 2.9 g/dL 3.5-5.0 L BILIRUBIN TOTAL (BEAKER) (test code 0.4 mg/dL 0.2-1.2 = 377) BILIRUBIN DIRECT (BEAKER) (test 0.2 mg/dL 0.1-0.5 code = 706) ALKALINE PHOSPHATASE (BEAKER) (test 83 U/L 40-150 code = 346) AST (SGOT) (BEAKER) (test code = 71 U/L 5-34 H 353) ALT (SGPT) (BEAKER) (test code = 35 U/L 6-55 347) Heart Doctor ID - EDASICalcium, [id number] 03:55:00 Test Item Value Reference Range Interpretation Comments Calcium, Ion (test code = 1993-) 1.09 mmol/L 1.12-1.27 L pH, Blood (test code = 81132-9) 7.48 Lab Interpretation (test code = Abnormal 39000-7) [facility] Center[facility], [id number] 03:55:00 Test Item Value Reference Range Interpretation Comments CALCIUM IONIZED (BEAKER) (test 1.09 mmol/L 1.12-1.27 L code = 698) PH, BLOOD (BEAKER) (test code = 7.48 1810) CBC W/PLT COUNT & AUTO [id number] 03:50:00 Test Item Value Reference Range Interpretation Comments WHITE BLOOD CELL COUNT (BEAKER) 8.6 K/ L 3.5-10.5 (test code = 775) RED BLOOD CELL COUNT (BEAKER) 2.90 M/ L 3.93-5.22 L (test code = 761) HEMOGLOBIN (BEAKER) (test code = 8.5 GM/DL 11.2-15.7 L 410) HEMATOCRIT (BEAKER) (test code = 25.5 % 34.1-44.9 L 411) MEAN CORPUSCULAR VOLUME (BEAKER) 87.9 fL 79.4-94.8 (test code = 753) MEAN CORPUSCULAR HEMOGLOBIN 29.3 pg 25.6-32.2 (BEAKER) (test code = 751) MEAN CORPUSCULAR HEMOGLOBIN CONC 33.3 GM/DL 32.2-35.5 (BEAKER) (test code = 752) RED CELL DISTRIBUTION WIDTH 13.1 % 11.7-14.4 (BEAKER) (test code = 412) PLATELET COUNT (BEAKER) (test 286 K/CU MM 150-450 code = 756) MEAN PLATELET VOLUME (BEAKER) 10.5 fL 9.4-12.3 (test code = 754) NUCLEATED RED BLOOD CELLS 0 /100 WBC 0-0 (BEAKER) (test code = 413) NEUTROPHILS RELATIVE PERCENT 61 % (BEAKER) (test code = 429) LYMPHOCYTES RELATIVE PERCENT 19 % (BEAKER) (test code = 430) MONOCYTES RELATIVE PERCENT 13 % (BEAKER) (test code = 431) EOSINOPHILS RELATIVE PERCENT 7 % (BEAKER) (test code = 432) BASOPHILS RELATIVE PERCENT 0 % (BEAKER) (test code = 437) NEUTROPHILS ABSOLUTE COUNT 5.19 K/ L 1.56-6.13 (BEAKER) (test code = 670) LYMPHOCYTES ABSOLUTE COUNT 1.62 K/ L 1.18-3.74 (BEAKER) (test code = 414) MONOCYTES ABSOLUTE COUNT (BEAKER) 1.10 K/ L 0.24-0.36 H (test code = 415) EOSINOPHILS ABSOLUTE COUNT 0.60 K/ L 0.04-0.36 H (BEAKER) (test code = 416) BASOPHILS ABSOLUTE COUNT (BEAKER) 0.03 K/ L 0.01-0.08 (test code = 417) IMMATURE GRANULOCYTES-RELATIVE 1 % 0-1 PERCENT (BEAKER) (test code = 2801) POCT-GLUCOSE [id number] 22:44:00 Test Item Value Reference Range Interpretation Comments POC-GLUCOSE METER 203 mg/dL 70-110 H : Notified RN/MD: ([facility]) (test code = TESTED AT [place] [address] 1538) [facility], [address]: Heart Doctor/Techni arnold ID = [id number] for SA SUSANNE LAWSON POCT-GLUCOSE [id number] 16:57:00 Test Item Value Reference Range Interpretation Comments POC-GLUCOSE METER 213 mg/dL 70-110 H : TESTED A T [facility] 67 ([facility]) (test code = SHAJI He [facility], 1538) [address]: Heart Doctor/Techni arnold ID = [id number] for ZAPATA NNY, ALKA U/S, ABDOMINAL, [id number] 16:34:00Abdomen limited area? Add comment if clarification is needed.->Right upper quadrantReason for exam:->elevated [facility]CH[facility] : 1940 Sex: FFINAL REPORT U/S, ABDOMINAL, LIMITED CLINICAL HISTORY: elevated LFT COMPARISON: Renal ultrasound same day TECHNIQUE: Real time grayscale and color Doppler images of the right upper quadrant abdominal organs were obtained using a curved transducer. FINDINGS: Pancreas: Partially visualized and unremarkable. Liver: Normal in size and homogeneous in echogenicity. Focal liver lesions: Punctate echogenic foci along the portal triads, likely pneumobilia. Portal vein: Normal, hepatopetal flow. Normal diameter main portal vein. Bile ducts: Normal in caliber. Gallbladder: Normally distended with no gallstones, gallbladder wall thickening, or sonographic Vargas's sign. Right kidney: No hydronephrosis. Ascites: None in the upper abdomen. Visualized aorta and IVC: Unremarkable. MEASUREMENTS:Liver: 12.3 cm Common Duct: 5 mm Right Kidney: 9 point cm Aorta: 1.3 cm IMPRESSION: There is suggestion of pneumobilia, correlate with any history of biliary intervention. Otherwise normal right upper quadrant abdominal ultrasound. Signed: Minnie T[facility]zconne[facility]ice Verified Date/Time: 02/03/2021 16:34:01 US abdomen [id number] 16:34:00Interface, External Ris In - 02/03/2021 4:36 PM CDTFINAL REPORT U/S, ABDOMINAL, LIMITED CLINICAL HISTORY: elevated LFT COMPARISON: Renal ultrasound same day TECHNIQUE: Real time grayscale and color Doppler images of the right upper quadrant abdominal organs were obtained usinga curved transducer. FINDINGS: Pancreas: Partially visualized and unremarkable. Liver: Normal in size and homogeneous in echogenicity. Focal liver lesions: Punctate echogenic foci along the portal triads, likely pneumobilia. Portal vein: Normal, hepatopetal flow. Normal diameter main portal vein. Bile ducts: Normal in caliber. Gallbladder: Normally distended with no gallstones, gallbladder wall thickening, or sonographic Vargas's sign. Right kidney: No hydronephrosis. Ascites: None in the upper abdomen. Visualized aorta and IVC: Unremarkable. MEASUREMENTS:Liver: 12.3 cm Common Duct: 5 mm Right Kidney: 9 point cm Aorta: 1.3 cm IMPRESSION: There is suggestion of pneumobilia, correlate with any history of biliary intervention. Otherwise normal right upper quadrant abdominal ultrasound. Signed: Minnie Tamez Verified Date/Time: 02/03/2021 16:34:01 [facility], [id number] 12:58:00Reason for exam:- >akiShould this be performed at the bedside?->Yes [facility] : 1940 Sex: FFINAL REPORT U/S, RENAL, COMPLETE CLINICAL HISTORY: robb COMPARISON: None. TECHNIQUE: Real time grayscale and color Doppler imaging of the kidneys and urinary bladder was performed. FINDINGS: Right kidney:Length = 10.2 cmCortical thickness: NormalEchogenicity: Mildly increasedCollecting system: No hydronephrosisOther findings: None Left kidney:Length = 8.7 cmCorticalthickness: NormalEchogenicity: Mildly increasedCollecting system: No hydronephrosisOther findings: None Urinary bladder: Normally distended Main renal artery and main renal vein: Patent bilaterally, resistive waveforms in the renal arteries, which can be seen with medical renal disease. IMPRESSION: Mildly hyperechoic kidneys, suggestive of mild renal parenchymal disease. No hydronephrosis. Signed: Minnie Tamez MDReport Verified Date/Time: 02/03/2021 12:58:21 US renal [id number] 12:58:00Interface, External Ris In - 02/03/2021 1:00 PM CDTFINAL REPORT U/S, RENAL, COMPLETE CLINICAL HISTORY: robb COMPARISON: None. TECHNIQUE: Real time grayscale and color Doppler imaging of the kidneys and urinary bladder was performed. FINDINGS: Right kidney:Length = 10.2 cmCortical thickness: NormalEchogenicity: Mildly increasedCollecting system: No hydronephrosisOther findings: None Left kidney:Length = 8.7 cmCortical thickness: NormalEchogenicity: Mildly increasedCollecting system: No hydronephrosisOther findings: None Urinary bladder: Normally distended Main renal artery andmain renal vein: Patent bilaterally, resistive waveforms in the renal arteries, which can be seen with medical renal disease. IMPRESSION: Mildly hyperechoic kidneys, suggestive of mild renal parenchymal disease. No hydronephrosis. Signed: Minnie Tamez MDReport Verified Date/Time: 02/03/2021 12:58:21 [facility] C [id number] 11:48:00 Test Item Value Reference Range Interpretation Comments Hepatitis C Ab (test Nonreactive Nonreactive code = 85727-4) JACKIE (test code = JACKIE) Heart Doctor ID - JING F Lab Interpretation (test Normal code = 89224-2) [facility] B [id number] 11:48:00 Test Item Value Reference Range Interpretation Comments Hep B Core Total Ab Nonreactive Nonreactive (test code = 37140-5) Hep B S Ab (test <8.0 See_Comment [Automated code = 07472-1) message] The system which generated this result transmitted reference range : <8.0 mIU/mL. e reference range was not used to interpret this result as normal/abnormal . HBsAg Screen (test Nonreactive Nonreactive code = 5195-3) JACKIE (test code = Heart Doctor ID - LIZET Pena Lab Interpretation Normal (test code = 63852-5) [facility] CenterHEPATITIS C [id number] 11:48:00 Test Item Value Reference Range Interpretation Comments HEPATITIS C ANTIBODY (BEAKER) Nonreactive Nonreactive (test code = 367) Heart Doctor ID - JING FHEPATITIS B [id number] 11:48:00 Test Item Value Reference Range Interpretation Comments HEPATITIS B CORE TOTAL ANTIBODY Nonreactive Nonreactive (BEAKER) (test code = 497) HEPATITIS B SURFACE ANTIBODY < mIU/mL <8.0 (BEAKER) (test code = 647) HEPATITIS B SURFACE ANTIGEN (2) Nonreactive Nonreactive (BEAKER) (test code = 2585) Heart Doctor ID - JING SHEND, CHEST, 1 VIEW, NON [id number] 11:33:00Reason for exam:->sobShould this be performed at the bedside?->Yes [facility] : 1940 Sex: FFINAL REPORT CLINICAL HISTORY: sob TECHNIQUE: 1 view of the chest COMPARISON: 01/31/2021 IMPRESSION: There are no focal infiltrates or pleural effusions. The cardiomediastinal silhouette is within normal limits for size. The visualized bones are intact. Signed: Davion Rivera Verified Date/Time: 02/03/2021 11:33:20 Reading Location: [facility] XR chest 1 view portable / [id number] 11:33:00Interface, External Ris In - 02/03/2021 11:35 AM CDTFINAL REPORT CLINICAL HISTORY: sob TECHNIQUE: 1 view of the chest COMPARISON: 01/31/2021 IMPRESSION: There are no focal infiltrates or pleural effusions. The cardiomediastinal silhouette is within normal limits for size. The visualized bones are intact. Signed: Davion Riveraeport Verified Date/Time: 02/03/2021 11:33:20 Reading Location: [facility] Radiology Reading [facility] [id number] 11:21:00 Test Item Value Reference Range Interpretation Comments POC-GLUCOSE METER 188 mg/dL 70-110 H : Notified RN/MD: (GABRIELA) (test code = TESTED AT [facility] 67 1538) [facility], [address]: Heart Doctor/Techni arnold ID = [id number] for [facility] POCT-GLUCOSE [id number] 07:26:00 Test Item Value Reference Range Interpretation Comments POC-GLUCOSE METER 122 mg/dL 70-110 H : Notified RN/MD: (GABRIELA) (test code = TESTED AT [facility] 67 1538) [facility], [address]: Heart Doctor/Techni arnold ID = [id number] for [facility] COMPREHENSIVE METABOLIC [id number] 05:22:00 Test Item Value Reference Range Interpretation Comments TOTAL PROTEIN 6.7 gm/dL 6.0-8.3 (BEAKER) (test code = 770) ALBUMIN (BEAKER) 2.9 g/dL 3.5-5.0 L (test code = 1145) ALKALINE PHOSPHATASE 79 U/L 40-150 (BEAKER) (test code = 346) BILIRUBIN TOTAL 0.6 mg/dL 0.2-1.2 (BEAKER) (test code = 377) SODIUM (BEAKER) (test 134 meq/L 136-145 L code = 381) POTASSIUM (BEAKER) 4.4 meq/L 3.5-5.1 (test code = 379) CHLORIDE (BEAKER) 98 meq/L 98-107 (test code = 382) CO2 (BEAKER) (test 24 meq/L 22-29 code = 355) BLOOD UREA NITROGEN 29 mg/dL 7-21 H (BEAKER) (test code = 354) CREATININE (BEAKER) 2.27 mg/dL 0.57-1.25 H (test code = 358) GLUCOSE RANDOM 122 mg/dL 70-105 H (BEAKER) (test code = 652) CALCIUM (BEAKER) 9.1 mg/dL 8.4-10.2 (test code = 697) AST (SGOT) (BEAKER) 85 U/L 5-34 H (test code = 353) ALT (SGPT) (BEAKER) 35 U/L 6-55 (test code = 347) EGFR (BEAKER) (test 21 mL/min/1.73 ESTIMA ROSALIA GFR IS code = 1092) sq m NOT ACCURATE CREATININE CLEARANCE IN PREDICTING GLOMERULAR FILTRATION RATE . ESTIMATED GFR I S NOT APPLICABLE FOR DIALYSIS PATIEN TS. [facility] ID - DALILA MB-TYPE NATRIURETIC FACTOR (BNP)2021-02-03 05:05:00 Test Item Value Reference Range Interpretation Comments B-TYPE NATRIURETIC PEPTIDE 2229 pg/mL 0-100 H (BEAKER) (test code = 700) [facility] ID - DALILA [id number] 05:02:00 Test Item Value Reference Range Interpretation Comments MAGNESIUM (BEAKER) (test code = 1.6 mg/dL 1.6-2.6 627) [facility] ID - DALILA [id number] 05:02:00 Test Item Value Reference Range Interpretation Comments PHOSPHORUS (BEAKER) (test code = 4.1 mg/dL 2.3-4.7 604) [facility] ID - DALILA MCALCIUM, [id number] 04:39:00 Test Item Value Reference Range Interpretation Comments CALCIUM IONIZED (BEAKER) (test 1.14 mmol/L 1.12-1.27 code = 698) PH, BLOOD (BEAKER) (test code = 7.48 1810) CBC W/PLT COUNT & AUTO [id number] 04:38:00 Test Item Value Reference Range Interpretation Comments WHITE BLOOD CELL COUNT (BEAKER) 8.4 K/ L 3.5-10.5 (test code = 775) RED BLOOD CELL COUNT (BEAKER) 3.17 M/ L 3.93-5.22 L (test code = 761) HEMOGLOBIN (BEAKER) (test code = 9.4 GM/DL 11.2-15.7 L 410) HEMATOCRIT (BEAKER) (test code = 28.2 % 34.1-44.9 L 411) MEAN CORPUSCULAR VOLUME (BEAKER) 89.0 fL 79.4-94.8 (test code = 753) MEAN CORPUSCULAR HEMOGLOBIN 29.7 pg 25.6-32.2 (BEAKER) (test code = 751) MEAN CORPUSCULAR HEMOGLOBIN CONC 33.3 GM/DL 32.2-35.5 (BEAKER) (test code = 752) RED CELL DISTRIBUTION WIDTH 13.1 % 11.7-14.4 (BEAKER) (test code = 412) PLATELET COUNT (BEAKER) (test 282 K/CU MM 150-450 code = 756) MEAN PLATELET VOLUME (BEAKER) 10.7 fL 9.4-12.3 (test code = 754) NUCLEATED RED BLOOD CELLS 0 /100 WBC 0-0 (BEAKER) (test code = 413) NEUTROPHILS RELATIVE PERCENT 71 % (BEAKER) (test code = 429) LYMPHOCYTES RELATIVE PERCENT 13 % (BEAKER) (test code = 430) MONOCYTES RELATIVE PERCENT 10 % (BEAKER) (test code = 431) EOSINOPHILS RELATIVE PERCENT 5 % (BEAKER) (test code = 432) BASOPHILS RELATIVE PERCENT 1 % (BEAKER) (test code = 437) NEUTROPHILS ABSOLUTE COUNT 5.98 K/ L 1.56-6.13 (BEAKER) (test code = 670) LYMPHOCYTES ABSOLUTE COUNT 1.08 K/ L 1.18-3.74 L (BEAKER) (test code = 414) MONOCYTES ABSOLUTE COUNT (BEAKER) 0.86 K/ L 0.24-0.36 H (test code = 415) EOSINOPHILS ABSOLUTE COUNT 0.42 K/ L 0.04-0.36 H (BEAKER) (test code = 416) BASOPHILS ABSOLUTE COUNT (BEAKER) 0.05 K/ L 0.01-0.08 (test code = 417) IMMATURE GRANULOCYTES-RELATIVE 0 % 0-1 PERCENT (BEAKER) (test code = 2801) POCT-GLUCOSE [id number] 21:22:00 Test Item Value Reference Range Interpretation Comments POC-GLUCOSE METER 165 mg/dL 70-110 H : TESTED A T [facility] 6720 (BEAKER) (test code = SH[place]I [place], 1538) [address]: Heart Doctor/Techni arnold ID = [id number] for PH ILIP JA Urinalysis w/[id number] 21:08:00 Test Item Value Reference Range Interpretation Comments Color, UA (test code Colorless = 5778-6) Clarity, UA (test Clear code = 5767-9) Specific [place], UA 1.020 1.001-1.035 (test code = 5811-5) pH, UA (test code = 7.0 5.0-8.0 5803-2) Protein, UA (test 50 mg/dL Negative A code = 38538-2) Glucose, UA (test Negative Negative code = 365) Ketones, UA (test Negative Negative code = 2514-8) Bilirubin, UA (test Negative Negative code = 57601-0) Blood, UA (test code Small Negative A = 51737-2) Nitrite, UA (test Negative Negative code = 5802-4) Leukocytes, UA (test Negative Negative code = 5799-2) Urobilinogen, UA 0.2 mg/dL 0.2-1 (test code = 83685-4) RBC, UA (test code = <1 See_Comment [Autom ated 25610-5) message] The system which generated this result transmitted reference range : /HPF. The reference range was not used to interpret this result as normal/abnormal . WBC, UA (test code = 1 See_Comment [Autom ated 5821-4) message] The system which generated this result transmitted reference range : /HPF. The reference range was not used to interpret this result as normal/abnormal . Squam Epithel, UA 1 See_Comment [Automate d (test code = 65977-4) messag e] The system which generated this result transmitted reference range : /HPF. The reference range was not used to interpret this result as normal/abnormal . Specimen Source (test Urine, Voided code = 2795) JACKIE (test code = JACKIE) Heart Doctor ID - [auto]Heart Doctor ID - tech Lab Interpretation Abnormal (test code = 91944-1) [facility] [id number] 21:08:00 Test Item Value Reference Range Interpretation Comments Creatinine, Ur 38.0 mg/dL (test code = 2161-8) JACKIE (test code = Reference Range: No JACKIE) NormalsOperator ID - BS [facility] [id number] 21:08:00 Test Item Value Reference Range Interpretation Comments Protein, Urine (test code = 78 mg/dL 0-14 H 2888-6) JACKIE (test code = JACKIE) Heart Doctor ID - BS Lab Interpretation (test Abnormal code = 01503-8) [facility] Center[facility] W/ [id number] 21:08:00 Test Item Value Reference Range Interpretation Comments COLOR (BEAKER) (test code = Colorless 470) CLARITY (BEAKER) (test code = Clear 469) SPECIFIC GRAVITY UA (BEAKER) 1.020 1.001-1.035 (test code = 468) PH UA (BEAKER) (test code = 7.0 5.0-8.0 467) PROTEIN UA (BEAKER) (test code 50 mg/dL Negative A = 464) GLUCOSE UA (BEAKER) (test code Negative Negative = 365) KETONES UA (BEAKER) (test code Negative Negative = 371) BILIRUBIN UA (BEAKER) (test Negative Negative code = 462) BLOOD UA (BEAKER) (test code = Small Negative A 461) NITRITE UA (BEAKER) (test code Negative Negative = 465) LEUKOCYTE ESTERASE UA (BEAKER) Negative Negative (test code = 466) UROBILINOGEN UA (BEAKER) (test 0.2 mg/dL 0.2-1.0 code = 463) RBC UA (BEAKER) (test code = < /HPF 519) WBC UA (BEAKER) (test code = 1 /HPF 520) SQUAMOUS EPITHELIAL (BEAKER) 1 /HPF (test code = 516) SOURCE(BEAKER) (test code = Urine, Voided 4216) Heart Doctor ID - [auto]Heart Doctor ID - techCREATININE, RANDOM [id number] 21:08:00 Test Item Value Reference Range Interpretation Comments CREATININE URINE (BEAKER) (test 38.0 mg/dL code = 375) Reference Range: No NormalsOperator ID - BSPROTEIN, RANDOM [id number] 21:08:00 Test Item Value Reference Range Interpretation Comments PROTEIN, URINE (BEAKER) (test code = 78 mg/dL 0-14 H 1569) Heart Doctor ID - BSPOCT-GLUCOSE [id number] 17:47:00 Test Item Value Reference Range Interpretation Comments POC-GLUCOSE METER 128 mg/dL 70-110 H : [facility] (test code = [facility], 1538) [address]: Heart Doctor/Techni arnold ID = [id number] for ALKA PIERCE POC ACTIVATED CLOTTING [id number] 13:18:00 Test Item Value Reference Range Interpretation Comments Activated Clotting Time 263 sec : 74 -137 seconds, (test code = 441) Baseline: TESTED AT [address], [facility] 30: Heart Doctor/Techni arnold ID = [id number] for At Sary harden [facility] CenterPOCT-[id number] 13:18:00 Test Item Value Reference Range Interpretation Comments ACTIVATED CLOTTING TIME 263 sec : 74 -137 seconds, (BEAKER) (test code = Baseli ne: TESTED AT 441) [address], 770 30: Heart Doctor/Techni arnold ID = [id number] for At Sary harden [id number] 12:55:00 Test Item Value Reference Range Interpretation Comments ACTIVATED CLOTTING TIME 285 sec : 74 -137 seconds, (BEAKER) (test code = Baseli ne: TESTED AT 441) [address], [facility] 30: Heart Doctor/Techni arnold ID = [id number] for CO NDE, LEBRON POCT-GLUCOSE [id number] 12:08:00 Test Item Value Reference Range Interpretation Comments POC-GLUCOSE METER 151 mg/dL 70-110 H : TESTED A T [facility] 6720 (BEAKER) (test code = [facility], 1538) [address]: Heart Doctor/Techni arnold ID = [id number] for ZAPATA ALKA SKINNER ECG 12 [id number] 11:16:29Interface, External Ris In - 02/02/2021 11:16 AM CDTVentricular Rate 116 BPMAtrial Rate 116 BPMP-R Interval 174 msQRS Duration 86 msQ-T Interval 344 msQTC Calculation(Bazett) 478 msP [place] 93 degreesR [place] 31 degreesT [place] 72 degreesSinus tachycardiaRSR' in V2 suggest RV conduction delayNonspecific T wave abnormalityProlonged QTAbnormal ECGWhen compared with ECG of 01-FEB-2021 21:09,No significant changesConfirmed by Live SHOEMAKER BASANT ([id number]) on 02/02/2021 11:16:23 [facility] 2021-02-02 08:00:00 Test Item Value Reference Range Interpretation Comments POC-GLUCOSE METER 209 mg/dL 70-110 H : [facility] ([facility]ER[facility] (test code = [place], 1538) [address]: Heart Doctor/Techni arnold ID = [id number] for ALKA PIERCE TROPONIN [id number] 07:08:00 Test Item Value Reference Range Interpretation Comments TROPONIN I (BEAKER) (test code = 5.61 ng/mL 0.00-0.03 [facility]) Troponin I (TnI) levels must be interpreted in the context of the presenting symptoms and the clinical findings. Elevated TnI levels indicate myocardial damage, but are not specific for ischemic heart disease. Elevated TnI levels are seen in patients with other cardiac conditions (including myocarditis and congestive heart failure), and slight TnI elevations occur in patients with other conditions, including sepsis, renal failure, acidosis, acute neurological disease, and persistent tachyarrhythmia.Heart Doctor ID - PIAYA LBASIC METABOLIC [id number] 06:41:00 Test Item Value Reference Range Interpretation Comments SODIUM (BEAKER) 135 meq/L 136-145 L (test code = 381) POTASSIUM (BEAKER) 4.4 meq/L 3.5-5.1 (test code = 379) CHLORIDE (BEAKER) 98 meq/L 98-107 (test code = 382) CO2 (BEAKER) (test 24 meq/L 22-29 code = 355) BLOOD UREA NITROGEN 28 mg/dL 7-21 H (BEAKER) (test code = 354) CREATININE (BEAKER) 2.01 mg/dL 0.57-1.25 H (test code = 358) GLUCOSE RANDOM 236 mg/dL 70-105 H (BEAKER) (test code = 652) CALCIUM (BEAKER) 10.1 mg/dL 8.4-10.2 (test code = 697) EGFR (BEAKER) (test 24 mL/min/1.73 ESTIMA ROSALIA GFR IS code = 1092) sq m NOT ACCURATE CREATININE CLEARANCE IN PREDICTING GLOMERULAR FILTRATION RATE . ESTIMATED GFR I S NOT APPLICABLE FOR DIALYSIS PATIEN TS. Heart Doctor ID - PIAYA [id number] 06:29:00 Test Item Value Reference Range Interpretation Comments PTT (test code = 96.9 See_Comment H [Automated message] 96002-1) The system [employer] generated this result transmitted ref erence range: 22.5 - 3 6.0 seconds. The reference range was not used to int erpret this result as normal/abnormal . Lab Interpretation (test Abnormal code = 94477-3) [facility] CenterAPTT2021-03-24 06:29:00 Test Item Value Reference Range Interpretation Comments PARTIAL THROMBOPLASTIN TIME 96.9 seconds 22.5-36.0 H (BEAKER) (test code = 760) CBC (HEMOGRAM ONLY)2021-02-02 06:22:00 Test Item Value Reference Range Interpretation Comments WHITE BLOOD CELL COUNT (BEAKER) 8.9 K/ L 3.5-10.5 (test code = 775) RED BLOOD CELL COUNT (BEAKER) 3.65 M/ L 3.93-5.22 L (test code = 761) HEMOGLOBIN (BEAKER) (test code = 10.6 GM/DL 11.2-15.7 L 410) HEMATOCRIT (BEAKER) (test code = 32.9 % 34.1-44.9 L 411) MEAN CORPUSCULAR VOLUME (BEAKER) 90.1 fL 79.4-94.8 (test code = 753) MEAN CORPUSCULAR HEMOGLOBIN 29.0 pg 25.6-32.2 (BEAKER) (test code = 751) MEAN CORPUSCULAR HEMOGLOBIN CONC 32.2 GM/DL 32.2-35.5 (BEAKER) (test code = 752) RED CELL DISTRIBUTION WIDTH 13.0 % 11.7-14.4 (BEAKER) (test code = 412) PLATELET COUNT (BEAKER) (test 310 K/CU MM 150-450 code = 756) MEAN PLATELET VOLUME (BEAKER) 10.6 fL 9.4-12.3 (test code = 754) NUCLEATED RED BLOOD CELLS 0 /100 WBC 0-0 (BEAKER) (test code = 413) TROPONIN [id number] 23:15:00 Test Item Value Reference Range Interpretation Comments TROPONIN I (BEAKER) (test code = 0.90 ng/mL 0.00-0.03 HH 397) Troponin I (TnI) levels must be interpreted in the context of the presenting symptoms and the clinical findings. Elevated TnI levels indicate myocardial damage, but are not specific for ischemic heart disease. Elevated TnI levels are seen in patients with other cardiac conditions (including myocarditis and congestive heart failure), and slight TnI elevations occur in patients with other conditions, including sepsis, renal failure, acidosis, acute neurological disease, and persistent tachyarrhythmia.Heart Doctor ID - BSPOCT-GLUCOSE METER 2021-02-01 20:47:00 Test Item Value Reference Range Interpretation Comments POC-GLUCOSE METER 304 mg/dL 70-110 H : TESTED A T [facility] 6720 ([facility]) (test code = [facility], 153) [address]: Heart Doctor/Techni arnold ID = [id number] for PH JA STANTON POCT-GLUCOSE [id number] 17:53:00 Test Item Value Reference Range Interpretation Comments POC-GLUCOSE METER 182 mg/dL 70-110 H : TESTED A T [facility] 6720 (BEAKER) (test code = [facility], 1538) [address]: Heart Doctor/Techni arnold ID = [id number] for CH KIM MONTANO [id number] 16:54:00 Test Item Value Reference Range Interpretation Comments ACTIVATED CLOTTING TIME 323 sec : 74 -137 seconds, (BEAKER) (test code = Baseli ne: TESTED AT 441) [facility] 6720 [facility], 770 30: Heart Doctor/Techni arnold ID = [id number] for SA LINRAMO, JACOBO [id number] 16:23:00 Test Item Value Reference Range Interpretation Comments ACTIVATED CLOTTING TIME 285 sec : 74 -137 seconds, (BEAKER) (test code = Baseli ne: TESTED AT 441) [facility] 6720 [facility], [facility] 30: Heart Doctor/Techni arnold ID = [id number] for JOAQUIN PARKER [id number] 15:59:00 Test Item Value Reference Range Interpretation Comments ACTIVATED CLOTTING TIME 224 sec : 74 -137 seconds, (GABRIELA) (test code = Baseli ne: TESTED AT 441) [facility] 6720 [facility], 770 30: Heart Doctor/Techni arnold ID = [id number] for JOAQUIN PARKER TROPONIN [id number] 13:53:00 Test Item Value Reference Range Interpretation Comments TROPONIN I (GABRIELA) (test code = 0.65 ng/mL 0.00-0.03 397) Troponin I (TnI) levels must be interpreted in the context of the presenting symptoms and the clinical findings. Elevated TnI levels indicate myocardial damage, but are not specific for ischemic heart disease. Elevated TnI levels are seen in patients with other cardiac conditions (including myocarditis and congestive heart failure), and slight TnI elevations occur in patients with other conditions, including sepsis, renal failure, acidosis, acute neurological disease, and persistent tachyarrhythmia.Heart Doctor ID - JING [id number] 13:30:00 Test Item Value Reference Range Interpretation Comments PARTIAL THROMBOPLASTIN TIME 24.9 seconds 22.5-36.0 (ADRIANOAKER) (test code = 760) POCT-GLUCOSE [id number] 12:15:00 Test Item Value Reference Range Interpretation Comments POC-GLUCOSE METER 176 mg/dL 70-110 H : TESTED A T [facility] 6720 (BEEVER) ([facility] = [facility] [address]: Heart Doctor/Techni arnold ID = [id number] for Jose Luis Edwards Hemoglobin [id number] 10:18:00 Test Item Value Reference Range Interpretation Comments Hemoglobin A1C (test code = 4548-4) 10.9 % 4.3-6.1 H Lab Interpretation (test code = Abnormal 63968-7) [facility] CenterHEMOGLOBIN [id number] 10:18:00 Test Item Value Reference Range Interpretation Comments HEMOGLOBIN A1C (BEAKER) (test code = 10.9 % 4.3-6.1 H 368) BASIC METABOLIC [id number] 10:09:00 Test Item Value Reference Range Interpretation Comments SODIUM (BEAKER) 134 meq/L 136-145 L (test code = 381) POTASSIUM (BEAKER) 4.6 meq/L 3.5-5.1 (test code = 379) CHLORIDE (BEAKER) 103 meq/L 98-107 (test code = 382) CO2 (BEAKER) (test 21 meq/L 22-29 L code = 355) BLOOD UREA NITROGEN 28 mg/dL 7-21 H (BEAKER) (test code = 354) CREATININE (BEAKER) 1.79 mg/dL 0.57-1.25 H (test code = 358) GLUCOSE RANDOM 91 mg/dL 70-105 (BEAKER) (test code = 652) CALCIUM (BEAKER) 8.8 mg/dL 8.4-10.2 (test code = 697) EGFR (BEAKER) (test 27 mL/min/1.73 ESTIMA ROSALIA GFR IS code = 1092) sq m NOT ACCURATE CREATININE CLEARANCE IN PREDICTING GLOMERULAR FILTRATION RATE . ESTIMATED GFR I S NOT APPLICABLE FOR DIALYSIS PATIEN TS. Heart Doctor ID Gayle JING FLipid [id number] 10:08:00 Test Item Value Reference Range Interpretation Comments Triglycerides (test 65 mg/dL code = 2571-8) Cholesterol (test code 104 mg/dL = 2093-3) HDL (test code = 34 mg/dL 5-9) LDL Calculated (test 57 mg/dL code = 33348-1) JACKIE (test code = JACKIE) Triglyceride Reference Range: Low Risk <150 Borderline 150-199 High Risk 200-499 Very High Risk >=500 Cholesterol Reference Range: Low Risk <200 Borderline 200-239 High Risk >240 HDL Cholesterol Reference Range: Low Risk >=60 High Risk <40 LDL Cholesterol Reference Range: Optimal <100 Near Optimal 100-129 Borderline 130-159 High 160-189 Very High >=190 Heart Doctor ID - JING [facility] CenterLIPID [id number] 10:08:00 Test Item Value Reference Range Interpretation Comments TRIGLYCERIDES (BEAKER) (test code = 65 mg/dL 540) CHOLESTEROL (BEAKER) (test code = 104 mg/dL 631) HDL CHOLESTEROL (BEAKER) (test code 34 mg/dL = 976) LDL CHOLESTEROL CALCULATED (BEAKER) 57 mg/dL (test code = 633) Triglyceride Reference Range: Low Risk <150 Borderline 150-199 High Risk 200-499 Very High Risk >=500Cholesterol Reference Range: Low Risk <200 Borderline 200-239 High Risk >240HDL Cholesterol Reference Range: Low Risk >=60 High Risk <40LDL Cholesterol Reference Range: Optimal <100 Near Optimal 100-129 Borderline 130-159 High 160-189 Very High >=190 Heart Doctor ID Gayle JING FPOCT-GLUCOSE [id number] 08:09:00 Test Item Value Reference Range Interpretation Comments POC-GLUCOSE METER 156 mg/dL 70-110 H : TESTED A T [facility] 6720 ([facility]) (test code = SHAJI Cutler [facility], 1538) [address]: Heart Doctor/Techni arnold ID = [id number] for Jose Luis Edwards TROPONIN [id number] 07:21:00 Test Item Value Reference Range Interpretation Comments TROPONIN I (AKER) (test code = 0.85 ng/mL 0.00-0.03 [facility]) Troponin I (TnI) levels must be interpreted in the context of the presenting symptoms and the clinical findings. Elevated TnI levels indicate myocardial damage, but are not specific for ischemic heart disease. Elevated TnI levels are seen in patients with other cardiac conditions (including myocarditis and congestive heart failure), and slight TnI elevations occur in patients with other conditions, including sepsis, renal failure, acidosis, acute neurological disease, and persistent tachyarrhythmia.Heart Doctor ID Gayle CONNER MB-TYPE NATRIURETIC FACTOR (BNP)2021-02-01 07:17:00 Test Item Value Reference Range Interpretation Comments B-TYPE NATRIURETIC PEPTIDE (BEAKER) 204 pg/mL 0-100 H (test code = 700) Heart Doctor ID - DALILA [id number] 06:55:00 Test Item Value Reference Range Interpretation Comments PARTIAL THROMBOPLASTIN TIME 59.4 seconds 22.5-36.0 H (AKER) (test code = 760) 6 hours after starting heparin infusion and as indicated per sliding scaleCB (HEMOGRAM ONLY)2021-02-01 06:49:00 Test Item Value Reference Range Interpretation Comments WHITE BLOOD CELL COUNT (BEAKER) 6.2 K/ L 3.5-10.5 (test code = 775) RED BLOOD CELL COUNT (BEAKER) 3.56 M/ L 3.93-5.22 L (test code = 761) HEMOGLOBIN (BEAKER) (test code = 10.3 GM/DL 11.2-15.7 L 410) HEMATOCRIT (BEAKER) (test code = 32.4 % 34.1-44.9 L 411) MEAN CORPUSCULAR VOLUME (BEAKER) 91.0 fL 79.4-94.8 (test code = 753) MEAN CORPUSCULAR HEMOGLOBIN 28.9 pg 25.6-32.2 (BEAKER) (test code = 751) MEAN CORPUSCULAR HEMOGLOBIN CONC 31.8 GM/DL 32.2-35.5 L (BEAKER) (test code = 752) RED CELL DISTRIBUTION WIDTH 12.7 % 11.7-14.4 (BEAKER) (test code = 412) PLATELET COUNT (BEAKER) (test 267 K/CU MM 150-450 code = 756) MEAN PLATELET VOLUME (BEAKER) 10.7 fL 9.4-12.3 (test code = 754) NUCLEATED RED BLOOD CELLS 0 /100 WBC 0-0 (BEAKER) (test code = 413) LEEANNH, [id number] 01:31:00 Test Item Value Reference Range Interpretation Comments ABO Grouping (test code = 2588) O Rh Factor (test code = 2589) POS [facility] CenterType and screen, [id number] 23:38:00 Test Item Value Reference Range Interpretation Comments ABO/RH AUTOMATED ([facility]) (test O POSITIVE code = 2260) Ab Scrn (test code = 890-4) NEGATIVE [facility] CenterPOCT-GLUCOSE [id number] 23:35:00 Test Item Value Reference Range Interpretation Comments POC-GLUCOSE METER 232 mg/dL 70-110 H : TESTED A T [facility] 6720 (BEAKER) (test code = [place], 1538) [address]: Heart Doctor/Techni arnold ID = [id number] for Lashay Fontana TROPONIN [id number] 23:35:00 Test Item Value Reference Range Interpretation Comments TROPONIN I (BEAKER) (test code = 0.74 ng/mL 0.00-0.03 HH 397) Troponin I (TnI) levels must be interpreted in the context of the presenting symptoms and the clinical findings. Elevated TnI levels indicate myocardial damage, but are not specific for ischemic heart disease. Elevated TnI levels are seen in patients with other cardiac conditions (including myocarditis and congestive heart failure), and slight TnI elevations occur in patients with other conditions, including sepsis, renal failure, acidosis, acute neurological disease, and persistent tachyarrhythmia.Heart Doctor ID - DBBASIC METABOLIC PANEL 2021-01-31 23:32:00 Test Item Value Reference Range Interpretation Comments SODIUM (BEAKER) 132 meq/L 136-145 L (test code = 381) POTASSIUM (BEAKER) 4.3 meq/L 3.5-5.1 (test code = 379) CHLORIDE (BEAKER) 96 meq/L 98-107 L (test code = 382) CO2 (BEAKER) (test 24 meq/L 22-29 code = 355) BLOOD UREA NITROGEN 35 mg/dL 7-21 H (BEAKER) (test code = 354) CREATININE (BEAKER) 2.15 mg/dL 0.57-1.25 H (test code = 358) GLUCOSE RANDOM 274 mg/dL 70-105 H (BEAKER) (test code = 652) CALCIUM (BEAKER) 9.0 mg/dL 8.4-10.2 (test code = 697) EGFR (BEAKER) (test 22 mL/min/1.73 ESTIMA ROSALIA GFR IS code = 1092) sq m NOT ACCURATE CREATININE CLEARANCE IN PREDICTING GLOMERULAR FILTRATION RATE . ESTIMATED GFR I S NOT APPLICABLE FOR DIALYSIS PATIEN TS. Heart Doctor ID - [id number] 22:44:00 Test Item Value Reference Range Interpretation Comments PARTIAL THROMBOPLASTIN TIME 59.7 seconds 22.5-36.0 H (BEAKER) (test code = 760) Prior to initiating heparinCBC (HEMOGRAM ONLY)2021-01-31 22:33:00 Test Item Value Reference Range Interpretation Comments WHITE BLOOD CELL COUNT (BEAKER) 6.2 K/ L 3.5-10.5 (test code = 775) RED BLOOD CELL COUNT (BEAKER) 3.13 M/ L 3.93-5.22 L (test code = 761) HEMOGLOBIN (BEAKER) (test code = 9.2 GM/DL 11.2-15.7 L 410) HEMATOCRIT (BEAKER) (test code = 28.2 % 34.1-44.9 L 411) MEAN CORPUSCULAR VOLUME (BEAKER) 90.1 fL 79.4-94.8 (test code = 753) MEAN CORPUSCULAR HEMOGLOBIN 29.4 pg 25.6-32.2 (BEAKER) (test code = 751) MEAN CORPUSCULAR HEMOGLOBIN CONC 32.6 GM/DL 32.2-35.5 (BEAKER) (test code = 752) RED CELL DISTRIBUTION WIDTH 12.8 % 11.7-14.4 (BEAKER) (test code = 412) PLATELET COUNT (BEAKER) (test 256 K/CU MM 150-450 code = 756) MEAN PLATELET VOLUME (BEAKER) 10.5 fL 9.4-12.3 (test code = 754) NUCLEATED RED BLOOD CELLS 0 /100 WBC 0-0 (BEAKER) (test code = 413) RAD, CHEST, 1 VIEW, NON [id number] 21:59:00Reason for exam:->shortness of breathShould this be performed at the bedside?->Yes [facility] : 1940 Sex: FFINAL REPORT Chest, 1 view. History: Shortness of breath. Comparison: None available. Findings: The cardiomediastinal silhouette and pulmonary vasculature are within normal limits for a portable exam. Calcified granuloma in the right lung base. Nodular opacities inthe right upper lobe measuring up to 7 mm may be inflammatory in etiology versus confluence of structures however recommend cross-sectional imaging on a nonemergent basis to exclude underlying pulmonary nodule. No lobar consolidation or pleural effusion. No pneumothorax. No acute osseous abnormality. Signed: Jahaira Cohen Verified Date/Time: 01/31/2021 21:59:25 Electronically signedby: JAHAIRA COHEN MD on 01/31/2021 09:59 PMCT Abdomen Pelvis Wo [id number] 11:30:30Hm Interface, Radiology Results - 01/18/2021 11:33 AM CST EXAMINATION: CT ABDOMEN PELVIS WO CONTRASTCLINICAL HISTORY: Hematuria unknown cause, WBCs UA PyelonephritisTECHNIQUE: Multiple axial images of the abdomen and pelvis were obtained without intravenous administration of iodinated contrast. Sagittal and coronal computerizedreformatted images were also obtained. The lack of intravenous contrast reduces the sensitivity of detecting solid organ disease.CT imaging was performed with iterative reconstruction techniques and/orautomated exposure control to reduce radiation dose.COMPARISON: None.FINDINGS:1.Mild bilateral renal parenchymal hyperdensity is consistent with recently administered IV contrast. No hydronephrosis ornephrolithiasis is seen. There is no abnormal or asymmetric perinephric stranding. A 9 mm round hypodensity near the anterior left kidney is equivocal for a small cyst or mass. The urinary bladder is empty and not well seen.2.There are multiple calcified hepatic and splenic granulomas.3.The gradient density in the gallbladder lumen is most likely vicariously excreted contrast.4.The pancreas and adrenals are normal.5.Abundant colonic stool could reflect constipation. No bowel obstruction or inflammation is seen. The appendix is not definitely visualized. The stomach is unremarkable.6.There is no ascites or lymphadenopathy.7.The uterus is absent. There are nonspecific clustered dystrophic appearing calcifications in the pelvis, periurethral region, measuring up to 1 cm.8.There is no acute or aggress maria isabel skeletal finding.IMPRESSION:1.No acute abnormality. No evidence of urinary tract obstruction or obvious pyelonephritis.2.Equivocal tiny cyst or mass in the left kidney. Atrophic calcifications in the central pelvis near the region of the urethra are indeterminate, of doubtful clinical significance. The bladder is empty and not well seen. Consider follow-up renal ultrasound or CT urogram.[id number] (routine)2021-01-17 19:59:38Addendum by Garrett Mae MD on 01/17/2021 8:00 PMEEG AWAKE AND ASLEEP Date of Service: 01/17/2021 Awake Recording: The occipital dominant rhythm is 10 Hz. 18-22 Hz activity is present in all regions. Sleep Recording: No sleep was recorded. Hyperventilation: Not performed. Photic Stimulation: No abnormality elicited. Impression The background activity is within the range of normal variation. No lateralized or epileptiform activity was recorded. ICD-10 Code: R569 EEG AWAKE AND ASLEEP Date of Service: 01/17/2021 Awake Recording: The occipital dominant rhythm is 10 Hz. 18-22 Hz activity is present in allregions. Sleep Recording: No sleep was recorded. Hyperventilation: Not performed. Photic Stimulation: Not performed. Impression The background activity is within the range of normal variation. No lateralized or epileptiform activity was recorded. ICD-10 Code: A799Rbtaolg MethodistECG 12 [id number] 22:34:54 Test Item Value Reference Range Interpretation Comments Ventricular rate 84 (test code = 253) Atrial rate (test 84 code = 255) [place] interval (test 140 code = 266) QRSD interval (test 82 code = 260) QT interval (test 384 code = 264) QTC interval (test 453 code = 265) P axis 1 (test code 86 = 267) QRS axis 1 (test 20 code = 268) T wave axis (test 71 code = 270) EKG impression (test Sinus rhythm with code = 273) premature supraventricular complexes-Nonspecific T wave abnormality-Abnormal ECG-In automated comparison with ECG of 15-JAN-2021 15:10,-No significant change was found- [facility]xicoTransthoracic Echocardiogram Complete, (w Contrast, Strain and 3D if needed)2021-01-16 17:30:00Interface, Radiology Results In - 01/16/2021 5:30 PM CST Echocardiography Report [id number] [address], [place] [address] [facility].Name: KARLENE HERNANDEZ Pat.ID: [id number] .Date: 01/16/2021 Refer.MD: VIOLA AREVALO MD Exam Time: 2:27:00 PM Study Type:Routine Echo Height: 65in Weight: 120lb BSA: 1.59 m2 Age: 11 1940,80Y Sex: FEMALE BP: 190/83 HR: 77 bpm Sonogrphr: NÉSTOR Bunch Pat. Stat.:Inpatient Room: A933 Study Status:Final Echo Event ID:[id number] Order ID: [id number] Reason for Study:Stroke, suspected cardiac etiologyProcedures: 2D Echo, Colorflow Doppler, Portable, Intravenous DefinityContrastRace: C SUMMARY: LV EF isnormal. Estimated EF is 60-64%.RV systolic function is normal.No hemodynamically significant valvular abnormalities.Diastolic dysfunction Grade II (Moderate): Impaired relaxation withelevated LV filling pressures.Estimated PA systolic pressure is appx 36 mmHg + RAP (IVC not wellvisualized). FINDINGS: LV: LV size is normal. Concentric left ventricular remodeling. LV EF is normal. Overall wall motion is normal. Estimated EF is 60-64%.RV: RV size is normal. RV systolic function is normal.LA: LA volume is difficult to assess.RA: RA volume is upper limits of normal.AO: Aortic root diameter is normal.RIN: No pericardial effusion. There is an anterior space consistent with a prominent epicardial fat pad.AV: Mild thickening and calcification of AV leaflets. A trace of aortic regurgitation.MV: No structural MV abnormalities noted. A trace of mitral regurgitation. PV: No structural PV abnormalities noted. A trace of pulmonic regurgitation. TV: No structural TV abnormalities noted. Mild tricuspid regurgitation Kings[place]: Diastolic dysfunction Grade II (Moderate): Impaired relaxation with elevated LV filling pressures.Other: Estimated PA systolic pressure is appx 36 mmHg + RAP (IVC not well visu alized). MEASUREMENTS: 2DParasternal Long [place] Ao An 1.4 cm LVPWd 1 cm Ao Rtd 2.6 cm Index 1.6 cm/m2 LA Ds 3cm IVSd 1.1 cm RWT 0.6 LVIDd 3.5 cmIndex 2.2 cm/m2 LV Mass 113.6 g (87-129) LVIDs 2.1 cm LVM Index 71.4 g/m2 LV%fs 40.4 % LVOT 1.8 cm RA Sng Plane RA Vol 42.4 ml Index 26.6 ml/m2 RA LngAx 4.7 cm RAArea 15.4 cm2 (8.3-19.5)LVOT For Flow LVOT 1.8 cm LVOT Area 2.5 cm2 LVOT LVOT Area 2.6 cm2 DOPPLERAV For Flow/JOSÉ AV pkVel 165.8 cm/s (100-170) AV TVI 34.5 cm AV mnVel 113 cm/s AVpkAcRt 3245.7 cm/s2 AV pkPG 11 mmHg AV DeRt 543.5 cm/s2 AV Mean G 6.2 mmHg AV Area 1.2 cm2 (3-5) AV ET 305 msec AV AC 75 msec (83-118) AV AC/ET 0.2 Aortic Valve AV DI 0.5 LVOT For Flow LVOT TVI 15.8 cm LVOT CI 2.1 l/m/m2 LVOT SV 40.2 ml LVOTpkPG 2.5 mmHg LVOTpkVel 79.3 cm/s LVOTmnPG 1.3 mmHg LVOT CO 3.3 l/min HR 83 bpm LVOT SVi 25.3 ml/m2 MMODETAPSE TAPS Dim 2.5 cm Signed 01/16/2021 05:30 PMBrissa Laurent MethodistMRI Brain Wo [id number] 12:15:47Hm Interface, Radiology Results 01/16/2021 12:18 PM CST EXAMINATION: MRI BRAIN WO CONTRASTCLINICAL HISTORY: Transient expressive aphasiaCOMPARISON: CT head 01/15/2021TECHNIQUE: Multiplanar and multisequence MRI imaging of the brain was obtained without contrast.FINDINGS:Tiny focus of elevated signal on diffusion-weighted imaging with associated T2 signal hyperintensity in the right frontal lobe near the vertex as seen on series 3 image 26 and series 6 image 5, consistent with small acute/subacute infarct.Mild diffuse cerebral volume loss with proportionate prominence of the ventricles. Mild to moderate chronic microvascular ischemic change. No abnormal susceptibility. Basal cisterns are clear. Major intracranial flow voids are maintained. Bilateral lens extractions. Mild scattered paranasal sinus mucosal thickening. 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 [id number]MRA Head Wo Contrast 2021-01-16 12:14:00Hm Interface, Radiology Results - 01/16/2021 12:17 PM CST EXAMINATION: MRA HEAD WO CONTRASTCLINICAL HISTORY: Stroke follow up, question of artifact P2 on CTACOMPARISON: CTA head 01/15/2021TECHNIQUE: Nvol-yj-ajwnly MRA images of the [place] vessels were obtained with multiplanar and 3-D reconstructive algorithms.FINDINGS: The petrous, cavernous, and supraclinoid internal carotid arteries are patent without significant stenosis. High-grade narrowing of the proximal right P2 [employer], mid left P2 [employer], and a proximal left P3 [employer] branch. Mild narrowing suspected of the proximal left M2 MCA branches which may be exaggerated by artifact. The vertebrobasilar system and major branches are patent without stenosis. Infundibulum arisinginferiorly from the communicating segment of the left internal carotid artery. No aneurysm is identified. IMPRESSION:Stable exam compared with the CTA head obtained on 01/15/2021.[id number] KreklvunhKZGH-UqE-9 (COVID-19) RNA [Presence] in Respiratory specimen by SHERI with probe [id number] 23:06:42 Test Item Value Reference Range Interpretation Comments SARS-CoV-2 (COVID-19) RNA Not detected Not-Detected [Presence] in Respiratory specimen by SHERI with probe detection (test code = 30031-7) hCG qualitative, urine [id number] 16:55:17 Test Item Value Reference Range Interpretation Comments hCG qualitative, Negative Sensitivity of HCG test: urine (test code = 25 mIU/mL 2106-3) [facility] MethodistCT Head W Wo [id number] 15:29:41Hm Interface, Radiology Results 01/15/2021 3:32 PM CST EXAMINATION: CT ANGIOGRAM HEAD W WO CONTRASTCLINICAL HISTORY: STROKECOMPARISON: NoneTECHNIQUE: Imaging of the intracranial circulation was obtained from the skull base to the vertex during the arterial phase of enhancement. Postprocessing was performed with MIP multiplanar and 3D reconstructed images. CT imaging was performed with iterative reconstruction technique and/orautomated exposure control to reduce radiation dose.FINDINGS:The petrous, cavernous, and supraclinoid internal carotid arteries are patent without significant stenosis. Moderate to high-grade narrowingof the proximal right P2 [employer] and mid left P2 [employer]. Mild narrowing of a proximal posterior left M2 MCAbranch. The vertebrobasilar system and major branches are patent without stenosis. Infundibulum arising inferiorly from the communicating segment of the left internal carotid artery. No aneurysm is iden tified. IMPRESSION:No evidence of large vessel occlusion.Moderate to high-grade narrowing of portions of the bilateral P2 segments of the posterior cerebral arteries.[id number] MethodistCT Neck W Wo [id number] 15:23:32Hm Interface, Radiology Results 01/15/2021 3:26 PM CST EXAMINATION: CT ANGIOGRAM NECK W WO CONTRASTCLINICAL HISTORY: STROKECOMPARISON: None.TECHNIQUE:Neck CTA with multi-planar MIP and volumetric rendering (3D) after bolus intravenous iodinated contrast administration was performed.All CT images were acquired using low-dose technique with automated exposure control.FINDINGS:Normal branching pattern of the aortic arch. Mild art eriosclerosis of the brachiocephalic and proximal subclavian arteries without stenosis. Codominant vertebral arteries appear patent without significant narrowingPartially calcified arteriosclerosis of the carotid bifurcations and proximal internal carotid arteries with up to 25% narrowing bilaterally by NASCET criteria.Nonspecific areas of interstitial thickening, mild bronchiectasis, and groundglassopacity within the right upper pulmonary lobe. Small hilar lymph nodes.IMPRESSION:1. No dissection or hemodynamically significant cervical carotid or vertebral artery stenosis.2. Nonspecific areas of interstitial thickening, mild bronchiectasis, and groundglass opacity within the right upper pulmonarylobe which may be postinfectious or inflammatory. 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, metabolic crisis, endocrine crisis and circulatory failure Critical care was time spent personally by me on the following activities: Development of treatment plan with patient or surrogate, discussions with consultants, evaluation of patient's response to treatment, examination of patient, interpretation of cardiac output measurements, obtaining history from patient or surrogate, ordering and performing treatments and interventions, ordering and review of laboratory studies, pulse oximetry, ordering and review of radiographic studies, re- evaluation of patient's condition and review of old charts Marvin 'yes' if you are taking over critical care for this patient from another provider.: no Comments: Pt p/w fluctuating TIA sx- stroketeam consulted and advanced nueroimaging obtained with CTA head/ neck, CT head; IV labetolol for malignant hypertensive emergency v.s urgency with systolic of 228 with good improvement transiently, started on cardene infusion- pt found to have early DKA- initiated on DKA protocol with insulin bolus and infusion, q1 hour electrolytes, IVF hydration, admitted for further management , multiple neuro checks and clinical [facility] Preliminary Interpretation - Not an Order 2021-01-15 15:12:29Mikey Boo MD 01/25/2021 9:44 AMECG ED Preliminary Interpretation - Not an OrderPerformed by: Mikey Boo MDAuthorized by: Mikey Boo MD ECG reviewed by ED Physician in the a 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 Ectopy.Aric MethodistCT Stroke Brain Wo [id number] 15:05:40Hm Interface, Radiology Results Incoming - 01/15/2021 3:08 PM CST EXAM: CT STROKE BRAIN WO CONTRASTCLINICAL HISTORY: STROKETECHNIQUE: Noncontrast enhanced images of the brain were obtained from the skull base to the vertex. Both soft tissue and bone reconstruction algorithms were performed. CT scans are performed using radiation dose reduction techniques (iterative reconstruction and/or automated exposure control). Technical factors are evaluated and adjusted to ensure appropriate moderation of exposure. Automated dose management technology is applied to adjust radiation exposure while achieving a diagnostic quality image.COMPARISON: CTA brain performed concurrently.FINDINGS:Sulci and ventricles are prominent from age- related parenchymal volume loss. In addition, there is confluent subcortical and deep white matter hypoattenuation, likely reflective of chronic small vessel ischemic changes.The briggs-white matter differentiation is preserved and without evidence of acute territorial infarction. There is no evidence for acute intracranial hemorrhage, mass, mass effect, hydrocephalus, or extra-axial fluid collection.Bilateral orbital lens extraction noted. Paranasal sinuses are clear. Mastoid air cells are normally pneumatized. Vascular calcifications are noted, most prominent within the bilateral cavernous ICAs. Osseous structures are intact.IMPRESSION:Mild to moderate involutional changes as detailed with no CT evidence for acute intracranial abnormality.Findings discussed with MIKEY BOO at 01/15/2021 3:03 PM, with acknowledgement of understanding.[id number]_PS01 [facility] MethodistPOCT-GLUCOSE [id number] 08:39:00 Test Item Value Reference Range Interpretation Comments POC-GLUCOSE METER 113 mg/dL 70-110 H [facility] (test code [place] E BLDG B = 1538) [facility] 7703 0
--- NOTE | 2021-05-16 21:41 | ER ---
Nurse's Notes [facility] Name: Carlita Villalobos Age: 80 yrs Sex: Female : 1940 Arrival Date: 05/16/2021 Time: 17:47 Bed Waiting Private MD: Diagnosis: Presentation: 05/16 18:40 Chief complaint: Patient states: BGl greater than 500 at home at 1630, took some jl7 insulin and it remained higher than 500 at 1730, BGL in triage 479, denies N/V, reports feeling unsteady. Coronavirus screen: Client denies travel out of the [place] in the last 14 days. At this time, the client does not indicate any symptoms associated with coronavirus-19. Ebola Screen: No symptoms or risks identified at this time. Initial Sepsis Screen: Does the patient meet any 2 criteria? No. Patient's initial sepsis screen is negative. Does the patient have a suspected source of infection? No. Patient's initial sepsis screen is negative. Risk Assessment: Do you want to hurt yourself or someone else? Patient reports no desire to harm self or others. Onset of symptoms was May 16, 2021. 18:40 Method Of Arrival: Ambulatory jl7 18:40 Acuity: PARESH 3 jl7 Historical: - Allergies: 18:42 Sulfa (Sulfonamide Antibiotics); jl7 - PMHx: 18:42 Atrial Fib; Diabetes - IDDM; Hypertension; Hypothyroidism; jl7 - PSHx: 18:42 Cardiac stents; jl7 - Immunization history:: Adult Immunizations not up to date, Client reports having NOT received the Covid vaccine. - Social history:: Smoking status: Patient denies any tobacco usage or history of. Vital Signs: 18:40 BP 153 / 74; Pulse 64; Resp 17; Temp 97.8; Pulse Ox 99% ; Weight 51.26 kg (R); Pain jl7 0/10; ED Course: 17:47 Patient arrived in ED. as 18:42 Triage completed. jl7 18:42 Arm band placed on right wrist. jl7 21:39 Daphne Osuna, RN is Primary Nurse. ld1 21:40 Primary Nurse role handed off by Daphne Osuna, KIRAN ap3 21:40 Shaina Mcgregor RN is Primary Nurse. ap3 Administered Medications: No medications were administered Outcome: 21:41 Patient left the ED. iw Signatures: Michelle Castillo Irene, RN RN Sarah Smith RN RN jl7 Shaina Mcgregor RN RN ap3 Daphne Osuna RN RN ld1
[2021-05-16 22:03] VITALS: BP 153/74; TEMP 97.8; O2SAT 99
== END 2021-05-16 21:41 | disposition left against medical advice (07) ==
LOC: ER 17:44
DX: Z53.21 Procedure and treatment not carried out due to patient leaving prior to being seen by health care provider (principal)
CPT/HCPCS: 82947; 99281

== ENCOUNTER 2021-12-14 12:41 | Inpatient (IN) | payer OTHER ==
--- OUTSIDE RECORDS SUMMARY | 2021-12-14 12:48 | XMS REPORT | Continuity of Care Document ---
:1940 Author Organization [facility] t Address [address] [place] [address] Care Team Providers Name Role Phone Aixa Attending Clinician Unavailable AIXA Attending Clinician Unavailable HUMBERTO Attending Clinician Unavailable Lewis Rodriguez Attending Clinician Unavailable Carlos James Attending Clinician Unavailable MIAN Attending Clinician Unavailable MD IRINA Attending Clinician Unavailable Loyda Linares MD Attending Clinician Asha LINARES Attending Clinician Unavailable Meme Servin Admitting Clinician Unavailable MILLIE WATKINS Admitting Clinician Unavailable Aixa Admitting Clinician Unavailable IRINA Admitting Clinician Unavailable MD IRINA Admitting Clinician Unavailable Asha LINARES Admitting Clinician Unavailable Payers Payer Name Policy Type Policy Number Effective Date Expiration Date S herman AETNA MEDICARE HMO [id number] 2017 POS PPO 00:00:00 Problems Condition Condition Condition Status Onset Resolution Last Treating Co mments Source Name Details Category Date Date Treatment Clinician Date 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 00:00: of 00 Medicin e Allergies, Adverse Reactions, Alerts Allergy Allergy Status Severity Reaction(s) Onset Inactive Treating Comm ents Source Name Type Date Date Clinician Sulfa DA Active [facility] ([facility] 4[facility]12 [place] [facility]: d Antibiot 00 [facility] Sulf[facility] DA Active [facility]12 [place] [facility] 00:[facility]: d Antibiot 00 [facility] ics[facility] Center SULFA Allergy Active [facility] (SULFONA 2-12 [facility] 00:00: ANTIBIOT 00 ICS) Sulfa Propensi Active 2017-11 [facility] Antibiot ty to 2-17 College ics adverse 00:00: of reaction 00 Medicin s to e drug Social History Social Habit Start Date Stop Date Quantity Comments Source Sex Assigned At [facility] Smoking Status Start Date Stop Date Source Never smoker [facility] o f Medicine Medications Ordered Filled Start Stop Current Ordering Indication Dosage Frequency Signature Comments Components Source Medication Medication Date Date Medication? Clinician (SIG) Name Name Sodium 2019-0 Yes 1[drp] Apply 1 [facility] Chloride, 2-17 Drop to [place] Hypertonic, 20:00: eye two of (GUILHERME 128) 51 times Medicin 2 % SOLN daily. e insulin 2019-0 Yes Inject [facility] detemir 2-17 into the [place] (LEVEMIR) 20:00: skin of 100 UNIT/ML 48 nightly. Medi ruth injection e Metoprolol 2019-0 Yes Take by [facility] Succinate 2-17 mouth. [place] 25 MG CS24 20:00: of 48 Medicin e metformin 2019-0 Yes 1000mg Take 1,000 [facility] (GLUCOPHAGE 2-17 mg by [place] ) 1000 MG 20:00: mouth 2 of tablet 48 times Medicin daily e (with meals). Levothyroxi 2019-0 Yes Take by James ngo ne Sodium 2-17 mouth. [place] 75 MCG CAPS 20:00: of 48 Medicin e moxifloxaci 2018-11 Yes 1[drp] Place 1 [facility] n (VIGAMOX) 1-08 Drop into [facility] 0.5 % 00:00: the right of ophthalmic 00 eye four Medic in solution times e daily. Start the day before surgery metformin 2019-0 Yes 1000mg Take 1,000 [place] (GLUCOPHAGE 4-18 mg by [place] ) 1000 MG 20:11: mouth 2 of tablet 42 times Medicin daily e (with meals). Levothyroxi 2019-0 Yes Take by James ngo ne Sodium 4-18 mouth. [place] 75 MCG CAPS 20:11: of 42 Medicin e Sodium 2018-0 Yes 1[drp] Apply 1 [facility] Chloride, 4-18 Drop to [place] Hypertonic, 20:11: eye two of (GUILHERME 128) 42 times Medicin 2 % SOLN daily. e insulin Yes Inject [place] detemir 4-18 into the College (LEVEMIR) 20:11: skin of 100 UNIT/ML 42 nightly. Medi ruth injection e Metoprolol Yes Take by [place] [facility] Succinate 4-18 mouth. College 25 MG CS24 20:11: of 42 Medicin e fluorometho 2018- Yes 1[drp] Place 1 B a[place] lone (FML) 4-18 Drop into [place] ege 0.1 % 00:00: the right of ophthalmic 00 eye daily. Med icin suspension e fluorometho 2018- Yes 1[drp] Place 1 [place] [facility] (FML) 4-18 Drop into [place] ege 0.1 % 00:00: the right of ophthalmic 00 eye daily. Med icin suspension e moxifloxaci 2018- Yes 1[drp] Place 1 [place] n (VIGAMOX) 2-04 Drop into Col lege 0.5 % 00:00: the right of ophthalmic 00 eye four Medic in solution times e daily. diflupredna 2018-0 Yes 1[drp] Place 1 B [place] te 2-04 Drop into College (DUREZOL) 00:00: the right of 0.05 % 00 eye four Medicin ophthalmic times e emulsion daily. moxifloxaci 2018-0 Yes 1[drp] Place 1 [place] n (VIGAMOX) 2-04 Drop into Col lege 0.5 % 00:00: the right of ophthalmic 00 eye four Medic in solution times e daily. diflupredna 2018- Yes 1[drp] Place 1 B a[place] te 2-04 Drop into College (DUREZOL) 00:00: the right of 0.05 % 00 eye four Medicin ophthalmic times e emulsion daily. Vital Signs Vital Name Observation Time Observation Value Comments Source WEIGHT 2021-02-07 04:10:00 54.25 kg WEIGHT 2021-02-02 07:30:00 55.12 kg WEIGHT 2021-02-01 04:12:00 55.021 kg HEIGHT 2021-01-31 19:16:00 162.6 cm WEIGHT 2021-01-31 19:16:00 54.931 kg WEIGHT 2021-02-07 04:10:00 54.25 kg WEIGHT 2021-02-02 07:30:00 55.12 kg WEIGHT 2021-02-01 04:12:00 55.021 kg HEIGHT 2021-01-31 19:16:00 162.6 cm WEIGHT 2021-01-31 19:16:00 54.931 kg Procedures Procedure Date / Time Performed Performing Clinician Musa de anda [id number] 2021-02-23 00:00:00 LUIS ALFREDO Yuan [facility] Plan of Care Planned Activity Planned Date Details Comments Source Future Scheduled Test MEDICARE AWV [code = [employer] MEDICARE AWV] Medicine Future Scheduled Test TETANUS SHOT (ADULT) [facility] [code = TETANUS SHOT Medicin e (ADULT)] Future Scheduled Test Diabetic foot [facility] Medicine (regime/therapy) [code = 938192361] Future Scheduled Test FALL SCREEN [code = [facility] FALL SCREEN] Medicine Future Scheduled Test OSTEOPOROSIS SCREENING [facility] [code = OSTEOPOROSIS Medicin e SCREENING] Future Scheduled Test PNEUMOVAX >=65 (PPSV23) [facility] [code = PNEUMOVAX >=65 Medic ine (PPSV23)] Future Scheduled Test PREVNAR >= 65 (PCV13) [facility] [code = PREVNAR >= 65 Medici ne (PCV13)] Future Scheduled Test FLU VACCINE > 6 MONTHS [facility] [code = FLU VACCINE > 6 Medi cine MONTHS] Future Scheduled Test ANNUAL DIABETIC [facility] RETINOPATHY SCREENING Medici ne [code = ANNUAL DIABETIC RETINOPATHY SCREENING] Future Scheduled Test TETANUS SHOT (ADULT) [facility] [code = TETANUS SHOT Medicin e (ADULT)] Future Scheduled Test Diabetic foot [facility] Medicine (regime/therapy) [code = 439486826] Future Scheduled Test FALL SCREEN [code = [facility] FALL SCREEN] Medicine Future Scheduled Test OSTEOPOROSIS SCREENING [facility] [code = OSTEOPOROSIS Medicin e SCREENING] Future Scheduled Test PNEUMOVAX >=65 (PPSV23) [facility] [code = PNEUMOVAX >=65 Medic ine (PPSV23)] Future Scheduled Test PREVNAR >= 65 (PCV13) [facility] [code = PREVNAR >= 65 Medici ne (PCV13)] Future Scheduled Test MEDICARE AWV (Initial) [facility] [code = MEDICARE AWV Medicin e (Initial)] Future Scheduled Test FLU VACCINE > 6 MONTHS [facility] [code = FLU VACCINE > 6 Medi cine MONTHS] Future Scheduled Test ANNUAL DIABETIC [facility] RETINOPATHY SCREENING Medici ne [code = ANNUAL DIABETIC RETINOPATHY SCREENING] Encounters Start End Encounter Admission Attending Care Care Encounter Source Date/Time Date/Time Type Type Clinicians Facility Department ID 2021-04-13 Inpatient EL Raslan, [facility] OUTD [id number] [facility] 09:15:00 Jose C [id number] [facility] 2021-04-12 Inpatient EL Raslan, [facility] OUTD [id number] [facility] 11:00:00 Jose C [id number] [facility] 2021-04-06 Inpatient Raslan, [facility] OUTD [id number] [facility] 08:30:00 Jose C [id number] [facility] 2021-04-04 Inpatient Raslan, [facility] OUTD [id number] [facility] 10:00:00 Jose C [id number] [facility] 2021-02-21 Inpatient Raslan, [facility] OUTD [id number] [facility] 13:00:00 Jose C [id number] [facility] 2021-01-31 Inpatient ER RASLAN, SLE Cardiology [id number] SLE 18:45:00 JOSE C 2021-04-09 2021-04-09 Outpatient UNDEFINED HCAPM LABO [id number] [facility] 10:39:00 10:39:00 [id number] [facility] 2021-04-08 2021-04-08 Outpatient EL Somo, [facility] LABO [id number] [facility] 12:08:00 12:08:00 Cristino [id number] [facility] 2021-02-23 2021-02-25 Inpatient EL Jacob, [facility] INTE.02 [id number] [facility] 13:14:00 14:49:00 Norberto [id number] [facility] 2021-01-15 2021-01-20 Inpatient MIAN, [facility] [id number] [address] [place] 00:00:00 00:00:00 LISETH Santos [facility] 2019-12-29 2019-12-29 MICHAEL [place] [id number] [facility] 13:53:04 14:03:04 Visit Nick AMBULATOR 350.1.13.21 College Loyda Y 0.2.7.2.686 of [id number] [facility] 300 e 2019-12-29 2019-12-29 MICHAEL [place] [id number] 13:53:04 14:03:04 Visit Nick AMBULATOR 350.1.13.21 [place] Y 0.2.7.2.686 [id number] 300 2019-07-03 2019-07-03 [facility] MICHAEL Linares [id number] [place] [address] 15:11:53 15:26:53 Visit Nick AMBULATOR 350.1.13.21 College Loyda Y 0.2.7.2.686 of [id number] [facility] 300 e 2019-07-03 2019-07-03 [facility] MARILEE Linares [id number] 15:11:53 15:26:53 Visit Nick AMBULATOR 350.1.13.21 [place]oyda Y 0.2.7.2.686 [id number] 300 Results Test Description Test Time Test Comments Results Result Comments Source ANTINUCLEAR ANTIBODIES TITER 2021-04-13 13:12:00 Test Item Value Reference Range Interpretation Comme nts KAMILA SCREEN (test code = Negative See_Comment ANASCR) Negative <1: 80 Borderline 1:80 Positive >1:8 0Performed At: [facility] [address]Tvjtcrayshawn Rothman MD Ph:[phone] [Automated message] The sy stem which generated this result tra nsmitted reference range: (). The reference range was not used to int erpret this result as normal/abnor mal. FAX:[phone] FAX:[phone] RFLX MICR CULT IF [id number] 20:07:00 Test Item Value Reference Range Interpretation [...] code = 0-5 /HPF NONE SEEN SQU) FAX:[phone]:[phone] PROT ELECTROPHORESIS [id number] 20:07:00 Test Item Value Reference Range Interpretation Comments UR TOTAL PROTEIN 261.4 mg/dL Not Estab. Results con firmed (test code = ondilution. PROTEU) UR ALBUMIN % (test 42.0 % See_Comment [Automat ed message] code = ALBEU%) The system Affirm ich generated this result transmitted ref erence range: (). The reference range was not used to int erpret this result as normal/abnormal . UR 8.6 % See_Comment [Automated Nubefy] NEPDD-7-FGOEEAOJ % The syste m which (test code = generated this result A1GU%) transmitted ref erence range: (). The reference range was not used to int erpret this result as normal/abnormal . UR 12.4 % See_Comment [Automated Nubefy] TLDFA-7-VAAXCLPW % The syste m which (test code [...] message] % (test code = The system wh ich GGU%) generated this result transmitted ref erence range: (). The reference range was not used to int erpret this result as normal/abnormal . M SPIKE % (test Not Observed % Not Observed code = MSPIKE%) FAX:[phone]:[phone] MICROALBUMIN/CREAT [id number] 20:07:00 Test Item Value Reference Range Interpretation [...] Severely increased: >300Performed A t: HD [facility] [address] [place], [place] [id number] Gama Rothman MD Ph:[phone] FAX:[phone]:[phone] METABOLIC [id number] 20:07:00 Test Item Value Reference Range Interpretation [...] 20-125 H TOTAL (test code = ALKP) FAX:[phone] FAX:[phone] ELECTROPHORESIS [id number] 20:07:00 Test Item Value Reference Range Interpretation Comments TOTAL PROTEIN 8.0 g/dL 6.0-8.5 (test code = PROTE) ALBUMIN (test 3.2 g/dL 2.9-4.4 code = ALBE) IAOBK-1-GECIFCN 0.3 g/dL 0.0-0.4 N (test code = A1G) EMGKW-2-NIIXLMS 1.3 g/dL 0.4-1.0 A N (test code [...] or serum freelight chain quantitation.Pe rformed At: HD [facility] [address] [place], [place] [id number] Gama Rothman MD Ph:[phone] rformed At: DA [facility] [address] [facility] [address] [place], [place] [id number] h CN MD Ph:[phone] [ Automated message] The sy stem which generated this result transmitted ref erence range: (). The reference range was not u sed to interpret this result as normal/abnormal . FAX:[phone] FAX:[phone] 20:07:00 Test Item Value Reference Range Interpretation Comments PHOSPHOROUS (test code = PHOS) 3.9 MG/DL 2.5-4.9 N FAX:[phone] FAX:[phone] [id number] 20:07:00 Test Item Value Reference Range Interpretation Comments URIC ACID (test code = URIC) 9.0 mg/dL 2.6-7.2 H FAX:[phone] FAX:[phone] 20:07:00 Test Item Value Reference Range Interpretation Comments MAGNESIUM (test code = MAG) 1.53 mg/dL 1.80-2.40 L FAX:[phone] FAX:[phone] PRO-BRAIN NATRIURETIC [id number] 20:07:00 Test Item Value Reference Range Interpretation Comments NT PRO-BRAIN NATRIURETIC PEPTI 4512 PG/ML 0-100 H (test code = PROBNP) FAX:[phone] FAX:[phone] A,G [id number] 20:07:00 Test Item Value Reference Range Interpretation Comments IMMUNOGLOBULIN G (test 1712 mg/dL 586-1602 A code = IGG) IMMUNOGLOBULIN M (test 52 mg/dL 26-217 Perfo rmed At: HD code = IGM) [facility] [address] [id number] Gama Rothman MD Ph:[phone] IMMUNOGLOBULIN A (test 663 mg/dL 64-422 A code = IGA) FAX:[phone] FAX:[phone] D [id number] 20:07:00 Test Item Value Reference Range Interpretation Comments VITAMIN D 25-HYDROXY (test code = 17.4 ng/mL 30-100 L VITD25) FAX:[phone] FAX:[phone] RFLX MICR CULT IF [id number] 11:08:00 Test Item Value Reference Range Interpretation [...] code = 0-5 /HPF NONE SEEN SQU) FAX:[phone]:[phone] PROT ELECTROPHORESIS [id number] 11:08:00 Test Item Value Reference Range Interpretation Comments UR TOTAL PROTEIN (test code = PROTEU) UR ALBUMIN % (test code = ALBEU%) UR XUQRN-2-RNRHDYIH % (test code = A1GU%) UR ZFAJX-0-QZYFRDHC % (test code = A2GU%) UR BETA GLOBULIN % (test code = BGU%) UR GAMMA GLOBULIN % (test code = GGU%) M SPIKE % (test code = MSPIKE%) FAX:[phone]:[phone] MICROALBUMIN/CREAT [id number] 11:08:00 Test Item Value Reference Range Interpretation [...] Severely increased: >300Performed A t: HD [facility] [address] [place], [place] [id number] Gama Rothman MD Ph:[phone] FAX:[phone]:[phone] METABOLIC [id number] 10:08:00 Test Item Value Reference Range Interpretation [...] 20-125 H TOTAL (test code = ALKP) FAX:[phone] FAX:[phone] ELECTROPHORESIS [id number] 10:08:00 Test Item Value Reference Range Interpretation Comments TOTAL PROTEIN (test code = PROTE) ALBUMIN (test code = ALBE) OFUUM-3-ANIDLLUK (test code = A1G) HJIEB-7-JCNSHHEL (test code = A2G) BETA GLOBULIN (test code = BG) GAMMA GLOBULIN (test code = GG) M-SPIKE,SERUM (test code = MSPIKES) GLOBULIN ELECT (test code = GLOBE) ALBUMIN/GLOBULIN RATIO (test code = AGE) PROT.ELECTROPH.INTERPRETATION (test code = ELEINT) FAX:[phone] FAX:[phone] 10:08:00 Test Item Value Reference Range Interpretation Comments PHOSPHOROUS (test code = PHOS) 3.9 MG/DL 2.5-4.9 N FAX:[phone] FAX:[phone] [id number] 10:08:00 Test Item Value Reference Range Interpretation Comments URIC ACID (test code = URIC) 9.0 mg/dL 2.6-7.2 H FAX:[phone] FAX:[phone] 10:08:00 Test Item Value Reference Range Interpretation Comments MAGNESIUM (test code = MAG) 1.53 mg/dL 1.80-2.40 L FAX:[phone] FAX:[phone] PRO-BRAIN NATRIURETIC [id number] 10:08:00 Test Item Value Reference Range Interpretation Comments NT PRO-BRAIN NATRIURETIC PEPTI 4512 PG/ML 0-100 H (test code = PROBNP) FAX:[phone] FAX:[phone] A,G [id number] 10:08:00 Test Item Value Reference Range Interpretation Comments IMMUNOGLOBULIN G (test 1712 mg/dL 586-1602 A code = IGG) IMMUNOGLOBULIN M (test 52 mg/dL 26-217 Perfo rmed At: HD code = IGM) [facility] [address] [id number] Gama Rothman MD Ph:[phone] IMMUNOGLOBULIN A (test 663 mg/dL 64-422 A code = IGA) FAX:[phone] FAX:[phone] D [id number] 10:08:00 Test Item Value Reference Range Interpretation Comments VITAMIN D 25-HYDROXY (test code = 17.4 ng/mL 30-100 L VITD25) FAX:[phone] FAX:[phone] PRO-BRAIN NATRIURETIC [id number] 13:38:00 Test Item Value Reference Range Interpretation Comments NT PRO-BRAIN NATRIURETIC PEPTI 4512 PG/ML 0-100 H (test code = PROBNP) FAX:[phone] FAX:[phone] METABOLIC [id number] 13:38:00 Test Item Value Reference Range Interpretation [...] 20-125 H TOTAL (test code = ALKP) FAX:[phone] FAX:[phone] ELECTROPHORESIS [id number] 13:38:00 Test Item Value Reference Range Interpretation Comments TOTAL PROTEIN (test code = PROTE) ALBUMIN (test code = ALBE) IJBEU-0-EXKTVIGY (test code = A1G) ONRYA-5-AGCHSLPM (test code = A2G) BETA GLOBULIN (test code = BG) GAMMA GLOBULIN (test code = GG) M-SPIKE,SERUM (test code = MSPIKES) GLOBULIN ELECT (test code = GLOBE) ALBUMIN/GLOBULIN RATIO (test code = AGE) PROT.ELECTROPH.INTERPRETATION (test code = ELEINT) FAX:[phone] FAX:[phone] 13:38:00 Test Item Value Reference Range Interpretation Comments PHOSPHOROUS (test code = PHOS) 3.9 MG/DL 2.5-4.9 N FAX:[phone] FAX:[phone] [id number] 13:38:00 Test Item Value Reference Range Interpretation Comments URIC ACID (test code = URIC) 9.0 mg/dL 2.6-7.2 H FAX:[phone] FAX:[phone] 13:38:00 Test Item Value Reference Range Interpretation Comments MAGNESIUM (test code = MAG) 1.53 mg/dL 1.80-2.40 L FAX:[phone] FAX:[phone] PRO-BRAIN NATRIURETIC [id number] 13:38:00 Test Item Value Reference Range Interpretation Comments NT PRO-BRAIN NATRIURETIC PEPTI 4512 PG/ML 0-100 H (test code = PROBNP) FAX:[phone] FAX:[phone] A,G [id number] 13:38:00 Test Item Value Reference Range Interpretation Comments IMMUNOGLOBULIN G (test code = IGG) IMMUNOGLOBULIN M (test code = IGM) IMMUNOGLOBULIN A (test code = IGA) FAX:[phone] FAX:[phone] D [id number] 13:38:00 Test Item Value Reference Range Interpretation Comments VITAMIN D 25-HYDROXY (test code = 17.4 ng/mL 30-100 L VITD25) FAX:[phone] FAX:[phone] Coronavirus 2019 [id number] 06:58:00 Test Item Value Reference Range Interpretation [...] n. The testing is perf ormed by personnelcosmo d in the procedures for the Lulu M2000 molecular diagnostic SARS-CoV-2 assa y in vitro. HGBA1C%2021-04-08 14:21:00 Test Item Value Reference Range Interpretation Comments HGBA1C% (test code = HGBA1C%) 7.8 %A1C 4.8-6.0 H FAX:[phone] METABOLIC [id number] 13:51:00 Test Item Value Reference Range Interpretation [...] 20-125 H TOTAL (test code = ALKP) FAX:[phone] ELECTROPHORESIS [id number] 13:51:00 Test Item Value Reference Range Interpretation Comments TOTAL PROTEIN (test code = PROTE) ALBUMIN (test code = ALBE) ECXEQ-8-QJMKBLSK (test code = A1G) IUXID-3-TZVPBOIW (test code = A2G) BETA GLOBULIN (test code = BG) GAMMA GLOBULIN (test code = GG) M-SPIKE,SERUM (test code = MSPIKES) GLOBULIN ELECT (test code = GLOBE) ALBUMIN/GLOBULIN RATIO (test code = AGE) PROT.ELECTROPH.INTERPRETATION (test code = ELEINT) FAX:[phone] 13:51:00 Test Item Value Reference Range Interpretation Comments PHOSPHOROUS (test code = PHOS) 3.9 MG/DL 2.5-4.9 N FAX:[phone] [id number] 13:51:00 Test Item Value Reference Range Interpretation Comments URIC ACID (test code = URIC) 9.0 mg/dL 2.6-7.2 H FAX:[phone] 13:51:00 Test Item Value Reference Range Interpretation Comments MAGNESIUM (test code = MAG) 1.53 mg/dL 1.80-2.40 L FAX:[phone] PRO-BRAIN NATRIURETIC [id number] 13:51:00 Test Item Value Reference Range Interpretation Comments NT PRO-BRAIN NATRIURETIC PEPTI (test code = PROBNP) FAX:[phone] [id number] 13:51:00 Test Item Value Reference Range Interpretation Comments IMMUNOGLOBULIN G (test code = IGG) FAX:[phone] [id number] 13:51:00 Test Item Value Reference Range Interpretation Comments IMMUNOGLOBULIN M (test code = IGM) FAX:[phone] [id number] 13:51:00 Test Item Value Reference Range Interpretation Comments IMMUNOGLOBULIN A (test code = IGA) FAX:[phone] D [id number] 13:51:00 Test Item Value Reference Range Interpretation Comments VITAMIN D 25-HYDROXY (test code = 17.4 ng/mL 30-100 L VITD25) FAX:[phone] RFLX MICR CULT IF [id number] 13:41:00 Test Item Value Reference Range Interpretation [...] code = 0-5 /HPF NONE SEEN SQU) FAX:[phone] PROT ELECTROPHORESIS [id number] 13:41:00 Test Item Value Reference Range Interpretation Comments UR TOTAL PROTEIN (test code = PROTEU) UR ALBUMIN % (test code = ALBEU%) UR LEFFX-4-PDAVKAJY % (test code = A1GU%) UR SCWPH-6-TFKSJLML % (test code = A2GU%) UR BETA GLOBULIN % (test code = BGU%) UR GAMMA GLOBULIN % (test code = GGU%) M SPIKE % (test code = MSPIKE%) FAX:[phone] MICROALBUMIN/CREAT [id number] 13:41:00 Test Item Value Reference Range Interpretation Comments UR CREATININE (test code = CREATE) UR MICROALBUMIN QUAL (test code = MICALBQL) UR MICROALB/CREAT RATIO (test code mcg/mgCr = MICALB:CRE) FAX:[phone] METABOLIC [id number] 13:39:00 Test Item Value Reference Range Interpretation [...] 9.5 mg/dL 8.0-10.5 N CA) PTH INTACT [id number] 13:24:00 Test Item Value Reference Range Interpretation Comments PARATHYROID HORMONE INTACT (test 162.2 pg/mL 14.0-72.0 H code = PARAI) FAX:[phone] [id number] 13:12:00 Test Item Value Reference Range Interpretation [...] o prevent recurre nt infarct). CBC W/AUTO [id number] 13:06:00 Test Item Value Reference Range Interpretation [...] (test code NO = MDIFF) PROTEIN ELECTROPHORESIS [id number] 13:09:00 Test Item Value Reference Range Interpretation Comments TOTAL PROTEIN 7.0 g/dL 6.0-8.5 (test code = PROTE) ALBUMIN (test 2.9 g/dL 2.9-4.4 code = ALBE) JTRYU-5-UVUNUOAZ 0.4 g/dL 0.0-0.4 (test code = A1G) RGHZH-9-CTAYNLXG 1.1 g/dL 0.4-1.0 A (test code = [...] otein is not apparent.Perfor med At: [facility] [address] [place], [place] [id number] Kyle L MD Ph:[phone] rform ed At: DA [facility] [id number] [place] [id number] h CN MD Ph:[phone] [Automated mess age] The system [employer] generated this result transmit rosalia reference range : (). The reference r neyda was not used to interpret this result as normal/abnormal . IMMUNOELECTROPHORESIS [id number] 13:09:00 Test Item Value Reference Range Interpretation Comments IMMUNOGLOBULIN A (test 536 mg/dL 64-422 A code = AIDEN) IMMUNOGLOBULIN G (test 1323 mg/dL 586-1602 code = IMMG) IMMUNOGLOBULIN M (test 33 mg/dL 26-217 Perfo rmed At: DA code = IMMM) [facility] [address] [facility] [address] [place], [place] [id number] h CN MD Ph:[phone] rform ed At: [facility] [place], [place] [id number] Gama Rothman MD Ph:[phone] IMMUNOFIXATION SERUM See_Comment A Polyclo nal increase (test code = IMMFIXS) detect ed in one or moreimmunoglobu penny. [Automated mess age] The system [employer] generated this result transmit rosalia reference range : (). The reference r neyda was not used to interpret this result as normal/abnormal . FREE KAPPA + LAMBDA LT [id number] 13:09:00 Test Item Value Reference Range Interpretation Comments FREE KAPPA LT CHAINS 127.9 mg/L 3.3-19.4 A (test code = KAPPAFR) FREE LAMBDA LT 90.1 mg/L 5.7-26.3 A CHAINS (test code = LAMBDAFR) FREE KAPPA/LAMBDA 1.42 0.26-1.65 Performed At: DA RATIO (test code = [facility] D [id number] KAPFRLAMFR) [facility] [address] [place], [place] [id number] h CN MD Ph:[phone] PROTEIN ELECTROPHORESIS [id number] 12:09:00 Test Item Value Reference Range Interpretation Comments TOTAL PROTEIN (test code = PROTE) ALBUMIN (test code = ALBE) EQRAH-2-XCULSCEF (test code = A1G) LNJYW-1-[id number] (test code = A2G) BETA GLOBULIN (test code = BG) GAMMA GLOBULIN (test code = GG) M-SPIKE,SERUM (test code = MSPIKES) GLOBULIN ELECT (test code = GLOBE) ALBUMIN/GLOBULIN RATIO (test code = AGE) PROT.ELECTROPH.INTERPRETATION (test code = ELEINT) IMMUNOELECTROPHORESIS [id number] 12:09:00 Test Item Value Reference Range Interpretation Comments IMMUNOGLOBULIN A (test 536 mg/dL 64-422 A code = AIDEN) IMMUNOGLOBULIN G (test 1323 mg/dL 586-1602 code = IMMG) IMMUNOGLOBULIN M (test 33 mg/dL 26-217 Perfo rmed At: DA code = IMMM) [facility] [place], [place] [id number] h CN MD Ph:[phone] rform ed At: HD [facility] rp [address] [place], [place] [id number] Gama Rothman MD Ph:[phone] IMMUNOFIXATION SERUM See_Comment A Polyclo nal increase (test code = IMMFIXS) detect ed in one or moreimmunoglobu penny. [Automated mess age] The system [employer] generated this result transmit rosalia reference range : (). The reference r neyda was not used to interpret this result as normal/abnormal . FREE KAPPA + LAMBDA LT [id number] 12:09:00 Test Item Value Reference Range Interpretation Comments FREE KAPPA LT CHAINS 127.9 mg/L 3.3-19.4 A (test code = KAPPAFR) FREE LAMBDA LT 90.1 mg/L 5.7-26.3 A CHAINS (test code = LAMBDAFR) FREE KAPPA/LAMBDA 1.42 0.26-1.65 Performed At: DA RATIO (test code = [facility] D [id number] KAPFRLAMFR) [address] [place], [place] [id number] h CN MD Ph:[phone] PROTEIN ELECTROPHORESIS [id number] 17:08:00 Test Item Value Reference Range Interpretation Comments TOTAL PROTEIN (test code = PROTE) ALBUMIN (test code = ALBE) [id number]-7-[id number] (test code = A1G) WEAUL-0-WCPSUPNI (test code = A2G) BETA GLOBULIN (test code = BG) GAMMA GLOBULIN (test code = GG) M-SPIKE,SERUM (test code = MSPIKES) GLOBULIN ELECT (test code = GLOBE) ALBUMIN/GLOBULIN RATIO (test code = AGE) PROT.ELECTROPH.INTERPRETATION (test code = ELEINT) IMMUNOELECTROPHORESIS [id number] 17:08:00 Test Item Value Reference Range Interpretation Comments IMMUNOGLOBULIN A (test code = AIDEN) IMMUNOGLOBULIN G (test code = IMMG) IMMUNOGLOBULIN M (test code = IMMM) IMMUNOFIXATION SERUM (test code = IMMFIXS) FREE KAPPA + LAMBDA LT [id number] 17:08:00 Test Item Value Reference Range Interpretation Comments FREE KAPPA LT CHAINS 127.9 mg/L 3.3-19.4 A (test code = KAPPAFR) FREE LAMBDA LT 90.1 mg/L 5.7-26.3 A CHAINS (test code = LAMBDAFR) FREE KAPPA/LAMBDA 1.42 0.26-1.65 Performed At: DA RATIO (test code = [facility] D [id number] KAPFRLAMFR) [address] [place], [place] [id number] h FINN BRITT Ph:[phone] [id number] 13:19:00 Test Item Value Reference Range Interpretation Comments GLUBED (test code = 136 MG/DL 70-110 H Performe d by certified GLUBED) 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 [facility] [id number] 11:13:00 Test Item Value Reference Range Interpretation Comments GLUBED (test code = 64 MG/DL 70-110 L Performe d by certified GLUBED) 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 [facility] [id number] 08:45:00 Test Item Value Reference Range Interpretation Comments GLUBED (test code = 163 MG/DL 70-110 H Performe d by certified GLUBED) 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 [facility] CBC W/AUTO [id number] 04:56:00 Test Item Value Reference Range Interpretation [...] code NO = MDIFF) POC ARTERIAL BLOOD [id number] 02:47:00 Test Item Value Reference Range Interpretation Comments POC ARTERIAL BLOOD GAS PH (test 7.436 7.35-7.45 N code = POCPHA) POC ARTERIAL BLOOD GAS PCO2 (test 36.8 mmHg 35.0-45 N code = [id number]) POC TCO2 ARTERIAL (test code = 25.9 POCTCO2) POC ARTERIAL BLOOD GAS PO2 (test 50.8 mmHg 80-100.0 L code = QXIUP1D) POC HCO3 ARTERIAL (test code = 24.8 MMOL/L 22.0-26.0 N RLMHNU5B) POC BASE EXCESS (test code = 0.6 MMOL/L -4.0-4.0 N POCBEA) POC O2 SATURATION (test code = 86.9 % 90-100 L POCO2S) ABG DELIVERY (test code = CHRISTINA) Cannula ABG PATIENT RESP RATE (test code 20 /MIN = RRPATA) ABG SITE (test code = SITEA) R Brach JENNIFER'S TEST (test code = ALLENS) Positive BASIC METABOLIC [id number] 02:47:00 Test Item Value Reference Range Interpretation Comments SODIUM (test code = NA/ABG) MEQ/L 134-147 POTASSIUM (test code = K/ABG) MEQ/L 3.4-5.0 CHLORIDE (test code = CL/ABG) MEQ/L 100-108 CREATININE ABG (test code = CREAABG) mg/dL 0.6-1.0 POC IONIZED CALCIUM (test code = MMOL/L 1.12-1.32 POCCA) POC GLUCOSE (test code = POCGLU) MG/DL 70-110 [id number] 02:47:00 Test Item Value Reference Range Interpretation Comments HEMOGLOBIN (test code = HGB/ABG) G/DL 11.0-15.0 [id number] 02:47:00 Test Item Value Reference Range Interpretation Comments HEMATOCRIT (test code = HCT/ABG) % 33.0-45.0 POC LACTIC [id number] 02:47:00 Test Item Value Reference Range Interpretation Comments POC LACTIC ACID (test code = POCLAC) mmol/l 0.9-1.7 POC ARTERIAL BLOOD [id number] 02:47:00 Test Item Value Reference Range Interpretation Comments POC ARTERIAL BLOOD GAS PH (test 7.436 7.35-7.45 N code = POCPHA) POC ARTERIAL BLOOD GAS PCO2 (test 36.8 mmHg 35.0-45 N code = IFZWOM8W) POC TCO2 ARTERIAL (test code = 25.9 POCTCO2) POC ARTERIAL BLOOD GAS PO2 (test 50.8 mmHg 80-100.0 L code = CZVGT7M) POC HCO3 ARTERIAL (test code = 24.8 MMOL/L 22.0-26.0 N XQHWFK5D) POC BASE EXCESS (test code = 0.6 MMOL/L -4.0-4.0 N POCBEA) POC O2 SATURATION (test code = 86.9 % 90-100 L POCO2S) ABG DELIVERY (test code = CHRISTINA) Cannula ABG PATIENT RESP RATE (test code 20 /MIN = RRPATA) ABG SITE (test code = SITEA) R Brach JENNIFER'S TEST (test code = ALLENS) Positive BASIC METABOLIC [id number] 02:47:00 Test Item Value Reference Range Interpretation Comments SODIUM (test code = NA/ABG) MEQ/L 134-147 POTASSIUM (test code = K/ABG) MEQ/L 3.4-5.0 CHLORIDE (test code = CL/ABG) MEQ/L 100-108 CREATININE ABG (test code = CREAABG) mg/dL 0.6-1.0 POC IONIZED CALCIUM (test code = MMOL/L 1.12-1.32 POCCA) POC GLUCOSE (test code = POCGLU) MG/DL 70-110 [id number] 02:47:00 Test Item Value Reference Range Interpretation Comments HEMOGLOBIN (test code = HGB/ABG) G/DL 11.0-15.0 [id number] 02:47:00 Test Item Value Reference Range Interpretation Comments HEMATOCRIT (test code = HCT/ABG) % 33.0-45.0 POC LACTIC [id number] 02:47:00 Test Item Value Reference Range Interpretation Comments POC LACTIC ACID (test code = 0.5 mmol/l 0.9-1.7 L POCLAC) POC ARTERIAL BLOOD [id number] 02:47:00 Test Item Value Reference Range Interpretation Comments POC ARTERIAL BLOOD GAS PH (test 7.436 7.35-7.45 N code = POCPHA) POC ARTERIAL BLOOD GAS PCO2 (test 36.8 mmHg 35.0-45 N code = RUYZQX5X) POC TCO2 ARTERIAL (test code = 25.9 POCTCO2) POC ARTERIAL BLOOD GAS PO2 (test 50.8 mmHg 80-100.0 L code = PYAKC5B) POC HCO3 ARTERIAL (test code = 24.8 MMOL/L 22.0-26.0 N IRYAZJ1W) POC BASE EXCESS (test code = 0.6 MMOL/L -4.0-4.0 N POCBEA) POC O2 SATURATION (test code = 86.9 % 90-100 L POCO2S) ABG DELIVERY (test code = CHRISTINA) Cannula ABG PATIENT RESP RATE (test code 20 /MIN = RRPATA) ABG SITE (test code = SITEA) R Brach JENNIFER'S TEST (test code = ALLENS) Positive BASIC METABOLIC [id number] 02:47:00 Test Item Value Reference Range Interpretation [...] code = POCGLU) 168 MG/DL 70-110 H [id number] 02:47:00 Test Item Value Reference Range Interpretation Comments HEMOGLOBIN (test code = HGB/ABG) G/DL 11.0-15.0 [id number] 02:47:00 Test Item Value Reference Range Interpretation Comments HEMATOCRIT (test code = HCT/ABG) % 33.0-45.0 POC LACTIC [id number] 02:47:00 Test Item Value Reference Range Interpretation Comments POC LACTIC ACID (test code = 0.5 mmol/l 0.9-1.7 L POCLAC) POC ARTERIAL BLOOD [id number] 02:47:00 Test Item Value Reference Range Interpretation Comments POC ARTERIAL BLOOD GAS PH (test 7.436 7.35-7.45 N code = POCPHA) POC ARTERIAL BLOOD GAS PCO2 (test 36.8 mmHg 35.0-45 N code = QCWZSF6A) POC TCO2 ARTERIAL (test code = 25.9 POCTCO2) POC ARTERIAL BLOOD GAS PO2 (test 50.8 mmHg 80-100.0 L code = GVGTY6N) POC HCO3 ARTERIAL (test code = 24.8 MMOL/L 22.0-26.0 N AIKXXR6B) POC BASE EXCESS (test code = 0.6 MMOL/L -4.0-4.0 N POCBEA) POC O2 SATURATION (test code = 86.9 % 90-100 L POCO2S) ABG DELIVERY (test code = CHRISTINA) Cannula ABG PATIENT RESP RATE (test code 20 /MIN = RRPATA) ABG SITE (test code = SITEA) R Brach JENNIFER'S TEST (test code = ALLENS) Positive BASIC METABOLIC [id number] 02:47:00 Test Item Value Reference Range Interpretation [...] code = POCGLU) 168 MG/DL 70-110 H [id number] 02:47:00 Test Item Value Reference Range Interpretation Comments HEMOGLOBIN (test code = HGB/ABG) 10.1 G/DL 11.0-15.0 L [id number] 02:47:00 Test Item Value Reference Range Interpretation Comments HEMATOCRIT (test code = HCT/ABG) % 33.0-45.0 POC LACTIC [id number] 02:47:00 Test Item Value Reference Range Interpretation Comments POC LACTIC ACID (test code = 0.5 mmol/l 0.9-1.7 L POCLAC) POC ARTERIAL BLOOD [id number] 02:47:00 Test Item Value Reference Range Interpretation Comments POC ARTERIAL BLOOD GAS PH (test 7.436 7.35-7.45 N code = POCPHA) POC ARTERIAL BLOOD GAS PCO2 (test 36.8 mmHg 35.0-45 N code = SSLBRQ6L) POC TCO2 ARTERIAL (test code = 25.9 POCTCO2) POC ARTERIAL BLOOD GAS PO2 (test 50.8 mmHg 80-100.0 L code = LSWDY5X) POC HCO3 ARTERIAL (test code = 24.8 MMOL/L 22.0-26.0 N EIOKAZ9E) POC BASE EXCESS (test code = 0.6 MMOL/L -4.0-4.0 N POCBEA) POC O2 SATURATION (test code = 86.9 % 90-100 L POCO2S) ABG DELIVERY (test code = CHRISTINA) Cannula ABG PATIENT RESP RATE (test code 20 /MIN = RRPATA) ABG SITE (test code = SITEA) R Bola JENNIFER'S TEST (test code = ALLENS) Positive BASIC METABOLIC [id number] 02:47:00 Test Item Value Reference Range Interpretation [...] code = POCGLU) 168 MG/DL 70-110 H [id number] 02:47:00 Test Item Value Reference Range Interpretation Comments HEMOGLOBIN (test code = HGB/ABG) 10.1 G/DL 11.0-15.0 L [id number] 02:47:00 Test Item Value Reference Range Interpretation Comments HEMATOCRIT (test code = HCT/ABG) 30 % 33.0-45.0 L POC LACTIC [id number] 02:47:00 Test Item Value Reference Range Interpretation Comments POC LACTIC ACID (test code = 0.5 mmol/l 0.9-1.7 L POCLAC) [id number] 00:37:00 Test Item Value Reference Range Interpretation Comments GLUBED (test code = 203 MG/DL 70-110 H Performe d by certified GLUBED) 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 [facility] [id number] 17:37:00 Test Item Value Reference Range Interpretation Comments GLUBED (test code = 148 MG/DL 70-110 H Performe d by certified GLUBED) 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 [facility] - XR CHEST 2 [id number] 14:27:00 [facility] 1940 Sex: F FAX: Norberto Schmidt [phone] [place]: St: ADM FAX: Bijal Monteiro MD [phone] FAX: Jose C Fenton MD [phone] Name: KARLENE HERNANDEZ [facility] : 1940 Age/S: 80/F [address] [place] [address] Unit #: [id number] Loc: [address] [place] [address] Phys: Bijal Nguyễn MD Acct: [id number] Dis Date: Status: ADM IN PHONE #: [phone] Exam Date: 02/24/2021 1414 FAX #: [phone] Reason: hypoxia EXAMS: CPT CODE: [id number] XR CHEST 2 V 48443 Clinical Indication: Hypoxia. Comparison:02/23/2021. Impression: Chest, single view. 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 Persistent, though improved bilateral coarse pulmonary opacities. No new pleural effusion or pneumothorax. Cardiac silhouette is of normal size. No acute osseous abnormality. SL: [id number] at 1427 Reported and signed by: Kayla Leal M.D. 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 [facility] CBC W/AUTO [id number] 10:43:00 Test Item Value Reference Range Interpretation [...] (test code NO = MDIFF) CBC W/AUTO [id number] 10:41:00 Test Item Value Reference Range Interpretation [...] REQUIRED (test code = MDIFF) COMPREHENSIVE METABOLIC [id number] 07:58:00 Test Item Value Reference Range Interpretation [...] 20-125 N TOTAL (test code = ALKP) [id number] 06:32:00 Test Item Value Reference Range Interpretation Comments GLUBED (test code = 193 MG/DL 70-110 H Performe d by certified GLUBED) 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 [facility] [id number] 05:58:00 Test Item Value Reference Range Interpretation Comments GLUBED (test code = 195 MG/DL 70-110 H Performe d by certified GLUBED) 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 [facility] [id number] 05:28:00 Test Item Value Reference Range Interpretation Comments GLUBED (test code = 191 MG/DL 70-110 H Performe d by certified GLUBED) 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 [facility] - XR CHEST 1 [id number] 18:20:00 [facility] : 1940 Sex: F FAX: Bekah Wan [phone] [place]: St: ADM FAX: Jose C Simmons MD [phone] Name: KARLENE HERNANDEZ [facility] : 1940 Age/S: 80/F [address] [place] [address] Unit #: [id number] Loc: [place] [address] Phys: Bekah Wan [facility] Acct: [id number] Dis Date: Status: ADM IN PHONE #: [phone] Exam Date: 02/23/20211814 FAX #: [phone]: POST WATCHMAN EXAMS: CPT CODE: [id number] XR CHEST 1 V 33180 Portable single view AP chest INDICATION: Post [...] to better evaluate as clinically indicated. SL: SG-H at 1820 Reported and signed by: Dario Pelaez M.D. 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 [facility] [id number] 13:38:00 Test Item Value Reference Range Interpretation Comments ACT-ISTAT (test code 268 SEC 74-137 H Perform ed by certified = ACTI) 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 [facility] [id number] 13:38:00 Test Item Value Reference Range Interpretation Comments ACT-ISTAT (test code 252 SEC 74-137 H Perform ed by certified = ACTI) 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 [facility] [id number] 13:38:00 Test Item Value Reference Range Interpretation Comments ACT-ISTAT (test code 235 SEC 74-137 H Perform ed by certified = ACTI) 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 The testing is perf ormed by maria fernanda villagomez in the procedures for the Lulu M2000 molecular diagnostic SARS-CoV-2 karl johnson in vitro. - XR CHEST 2 [id number] 15:44:00 [facility] : 1940 Sex: F FAX: Jose C Fenton MD [phone] [place]: [facility] St: PRE Name: KARLENE CABA [facility] : 1940 Age/S: 80/F [address] [place] [address] Unit #: [id number] Loc: [place] [address] Phys: Jose C Kruse MD Acct: [id number] Dis Date: Status: PRE SDC PHONE #: [phone] Exam Date: 02/21/2021 1524 FAX #: [phone] Reason: PRE-OP WATCHMAN EXAMS: CPT CODE: [id number] XR CHEST 2 V 88164 Clinical Indication: Atrial fibrillation. Preoperative chest radiograph. Comparison: None available. Impression: Chest, 2 views. Lungs are hyperexpanded with flattening of the diaphragm. Blunting of the costophrenic angles may represent scarring or small volume pleural fluid. No pneumothorax. Cardiac silhouette is of normal size. No acute osseous abnormality. SL: [id number] at 1544 Reported and signed by: Kayla Leal M.D. CC: Jose C Kruse MD Technologist: Daphne Noguera RT(R) Trnscrd Date/Time/By: 02/21/2021 (2326) : By: [email or web address] Orig Print D/T: S: 02/21/2021 (9177) PAGE 1 Sig italia ReportBASIC METABOLIC [id number] 14:40:00 Test Item Value Reference Range Interpretation [...] code = 9.5 mg/dL 8.0-10.5 N CA) [id number] 14:40:00 Test Item Value Reference Range Interpretation Comments PREALBUMIN (test code = PREALB) 17.5 mg/dL 16.0-40.0 N PROTHROMBIN [id number] 14:36:00 Test Item Value Reference Range Interpretation [...] o prevent recurre nt infarct). CBC W/AUTO [id number] 14:15:00 Test Item Value Reference Range Interpretation [...] (test code NO = MDIFF) CBC W/AUTO [id number] 14:14:00 Test Item Value Reference Range Interpretation [...] MANUAL DIFF REQUIRED (test code = MDIFF) POCT-GLUCOSE [id number] 17:15:00 Test Item Value Reference Range Interpretation Comments POC-GLUCOSE METER 221 mg/dL 70-110 H : TESTED A T [facility] 6720 (BEAKER) (test code = [facility], 1538) [id number]: [employer]/Techni arnold ID = [id number] for TURNER SALINAS POCT-GLUCOSE [id number] 12:18:00 Test Item Value Reference Range Interpretation Comments POC-GLUCOSE METER 201 mg/dL 70-110 H : TESTED A T [facility] 67[address] (BEAKER) (test code = [facility], 1538) [id number]: [employer]/Techni arnold ID = [id number] for TURNER SALINAS POCT-GLUCOSE [id number] 07:41:00 Test Item Value Reference Range Interpretation Comments POC-GLUCOSE METER 131 mg/dL 70-110 H : TESTED A T [facility] [address] (BEAKER) (test code = [facility], 1538) 76691: [employer]/Techni arnold ID = [id number] for TURNER SALINAS BASIC METABOLIC [id number] 06:48:00 Test Item Value Reference Range Interpretation Comments SODIUM (BEAKER) 136 meq/L 136-145 (test code = 381) POTASSIUM (BEAKER) 4.1 meq/L 3.5-5.1 (test code = 379) CHLORIDE (BEAKER) 103 meq/L 98-107 (test code = 382) CO2 (BEAKER) (test 22 meq/L 22-29 code = 355) BLOOD UREA NITROGEN 36 [...] S NOT APPLICABLE FOR DIALYSIS PATIEN TS. [employer] ID - MARK LB-TYPE NATRIURETIC FACTOR (BNP)2021-02-07 06:42:00 Test Item Value Reference Range Interpretation Comments B-TYPE NATRIURETIC PEPTIDE (BEAKER) 817 pg/mL 0-100 H (test code = 700) [employer] ID - DALILA MHEPATIC FUNCTION [id number] 06:41:00 Test Item Value Reference Range Interpretation [...] (test code = 22 U/L 6-55 347) [employer] ID - MARK LTROPONIN [id number] 06:37:00 Test Item Value Reference Range Interpretation Comments TROPONIN I (BEAKER) (test code = 5.13 ng/mL 0.00-0.03 HH 397) Troponin I (TnI) [...] failure, acidosis, acute neurological disease, and persistent tachyarrhythmia.[employer] ID - DALILA [facility] (HEMOGRAM ONLY) 2021-02-07 05:57:00 Test Item Value Reference Range [...] 0-0 (BEAKER) (test code = 413) POCT-GLUCOSE [id number] 21:08:00 Test Item Value Reference Range Interpretation Comments POC-GLUCOSE METER 264 mg/dL 70-110 H : TESTED Violeta T [facility] 6720 (BEAKER) (test code = [facility], 1538) 21483: [employer]/Techni arnold ID = [id number] for SLADE TONYNIRAV POCT-GLUCOSE [id number] 16:42:00 Test Item Value Reference Range Interpretation Comments POC-GLUCOSE METER 249 mg/dL 70-110 H : TESTED A T [facility] 6720 (BEAKER) (test code = [facility], 1538) 04386: [employer]/Techni arnold ID = [id number] for IVÁN CUELLAR POCT-GLUCOSE [id number] 13:04:00 Test Item Value Reference Range Interpretation Comments POC-GLUCOSE METER 139 mg/dL 70-110 H : TESTED A T [facility] 67[address] (BEAKER) (test code = [facility], 1538) 42441: [employer]/Techni arnold ID = [id number] for IVÁN CUELLAR POCT-GLUCOSE [id number] 08:04:00 Test Item Value Reference Range Interpretation Comments POC-GLUCOSE METER 111 mg/dL 70-110 H : TESTED A T [facility] [address] (BEAKER) (test code = [facility], 1538) 30670: [employer]/Techni arnold ID = [id number] for IVÁN CUELLAR BASIC METABOLIC [id number] 05:32:00 Test Item Value Reference Range Interpretation [...] S NOT APPLICABLE FOR DIALYSIS PATIEN TS. [employer] ID - DALILA EPATIC FUNCTION [id number] 05:30:00 Test Item Value Reference Range Interpretation [...] (test code = 32 U/L 6-55 347) [employer] ID - DALILA [facility] [place] ONLY)2021-02-06 04:58:00 Test Item Value Reference [...] 0-0 (BEAKER) (test code = 413) POCT-GLUCOSE [id number] 16:58:00 Test Item Value Reference Range Interpretation Comments POC-GLUCOSE METER 213 mg/dL 70-110 H : TESTED A T [facility] 6720 (BEAKER) (test code = [facility], 1538) 60920: [employer]/Techni arnold ID = [id number] for CELENA BRANDT POCT-GLUCOSE [id number] 12:09:00 Test Item Value Reference Range Interpretation Comments POC-GLUCOSE METER 202 mg/dL 70-110 H : TESTED A T [facility] 67[address] (BEAKER) (test code = [facility], 1538) 58719: [employer]/Techni arnold ID = [id number] for CELENA BRANDT POCT-GLUCOSE [id number] 07:45:00 Test Item Value Reference Range Interpretation Comments POC-GLUCOSE METER 81 mg/dL 70-110 : TESTED A T [facility] 6720 (BEAKER) (test code = [facility], 1538) 29679: [employer]/Techni arnold ID = [id number] for CELENA BRANDT BASIC METABOLIC [id number] 04:54:00 Test Item Value Reference Range Interpretation [...] S NOT APPLICABLE FOR DIALYSIS PATIEN TS. [employer] ID - [id number] 04:45:00 Test Item Value Reference Range Interpretation Comments MAGNESIUM (BEAKER) (test code = 1.8 mg/dL 1.6-2.6 627) [employer] ID - [id number] 04:45:00 Test Item Value Reference Range Interpretation Comments PHOSPHORUS (BEAKER) (test code = 3.6 mg/dL 2.3-4.7 604) [employer] ID - ADMINHEPATIC FUNCTION [id number] 04:45:00 Test Item Value Reference Range Interpretation [...] (test code = 35 U/L 6-55 347) [employer] ID - ADMINCBC W/PLT COUNT & AUTO [id number] 04:28:00 Test Item Value Reference Range Interpretation [...] PERCENT (BEAKER) (test code = 2801) POCT-GLUCOSE [id number] 17:20:00 Test Item Value Reference Range Interpretation Comments POC-GLUCOSE METER 194 mg/dL 70-110 H : TESTED A T [facility] 6720 (BEAKER) ([place], [address]: code = 1538) [employer]/Techni arnold ID = [id number] for MAXIM LANDON IN POCT-GLUCOSE [id number] 11:44:00 Test Item Value Reference Range Interpretation Comments POC-GLUCOSE METER 260 mg/dL 70-110 H : TESTED A T [facility] 6720 (BEAKER) ([place], [address]: code = 1538) [employer]/Techni arnold ID = [id number] for MAXIM LANDON IN POCT-GLUCOSE [id number] 07:26:00 Test Item Value Reference Range Interpretation Comments POC-GLUCOSE METER 143 mg/dL 70-110 H : [facility] (BEAKER) ([place], [address]: code = 1538) [employer]/Techni arnold ID = [id number] for BLAS SHI JWHe IN COMPREHENSIVE METABOLIC [id number] 04:27:00 Test Item Value Reference Range Interpretation [...] S NOT APPLICABLE FOR DIALYSIS PATIEN TS. [employer] ID - [id number] 04:08:00 Test Item Value Reference Range Interpretation Comments MAGNESIUM (BEAKER) (test code = 1.7 mg/dL 1.6-2.6 627) [employer] ID - [id number] 04:08:00 Test Item Value Reference Range Interpretation Comments PHOSPHORUS (BEAKER) (test code = 3.7 mg/dL 2.3-4.7 604) [employer] ID - EDASIHEPATIC FUNCTION [id number] 04:08:00 Test Item Value Reference Range Interpretation [...] (test code = 35 U/L 6-55 347) [employer] ID - EDASICALCIUM, [id number] 03:55:00 Test Item Value Reference Range Interpretation Comments CALCIUM IONIZED (BEAKER) (test 1.09 mmol/L 1.12-1.27 L code = 698) PH, BLOOD (BEAKER) (test code = 7.48 1810) CBC W/PLT COUNT & AUTO [id number] 03:50:00 Test Item Value Reference Range Interpretation [...] PERCENT (BEAKER) (test code = 2801) POCT-GLUCOSE [id number] 22:44:00 Test Item Value Reference Range Interpretation Comments POC-GLUCOSE METER 203 mg/dL 70-110 H : Notified RN/: ([facility]) (test code = TESTED AT [place] [address] 6569) [facility] [address]: [employer]/Techni arnold ID = [id number] for SUSANNE LAWSON POCT-GLUCOSE [id number] 16:57:00 Test Item Value Reference Range Interpretation Comments POC-GLUCOSE METER 213 mg/dL 70-110 H : TESTED A T [facility] 67 (GABRIELA) (test code = [place], 1538) [address]: [employer]/Techni arnold ID = [id number] for ALKA PIERCE U/S, ABDOMINAL, [id number] 16:34:00Abdomen limited area? Add comment if clarification is needed.->Right upper quadrantReason for exam:->elevated [facility]FTCH[facility] : 1940 Sex: [...] right upper quadrant abdominal ultrasound. Signed: Minnie Fabian Verified Date/Time: 02/03/2021 16:34:01 U/S, RENAL, [id number] 12:58:00Reason for exam:- >akiShould this be performed at the bedside?->Yes [facility] 1940 Sex: FFINAL [...] renal parenchymal disease. No hydronephrosis. Signed: Minnie Fabian Verified Date/Time: 02/03/2021 12:58:21 HEPATITIS C [id number] 11:48:00 Test Item Value Reference Range Interpretation Comments HEPATITIS C ANTIBODY (BEAKER) Nonreactive Nonreactive (test code = 367) [employer] ID - JING FHEPATITIS B [id number] 11:48:00 Test Item Value Reference Range Interpretation Comments HEPATITIS B CORE TOTAL ANTIBODY Nonreactive Nonreactive (BEAKER) (test code = 497) HEPATITIS B SURFACE ANTIBODY < mIU/mL <8.0 (BEAKER) (test code = 647) HEPATITIS B SURFACE ANTIGEN (2) Nonreactive Nonreactive (BEAKER) (test code = 2585) [employer] ID - JING TAYLOR, CHEST, 1 VIEW, NON [id number] 11:33:00Reason for exam:->sobShould this be performed at the bedside?->Yes [facility] : 1940 Sex: FFINAL REPORT CLINICAL HISTORY: sob TECHNIQUE: 1 view of the chest COMPARISON: 01/31/2021 IMPRESSION: There are no focal infiltrates or pleural effusions. The cardiomediastinal silhouette is within normal limits for size. The visualized bones are intact. Signed: Davion Vázquez Verified Date/Time: 02/03/2021 11:33:20 Reading Location: [facility] POCT-GLUCOSE [id number] 11:21:00 Test Item Value Reference Range Interpretation Comments POC-GLUCOSE METER 188 mg/dL 70-110 H : Notified RN/MD: (GABRIELA) (test code = TESTED AT [facility] 67 1538) [facility], [address]: [employer]Techni arnold ID = [id number] for [facility] D[facility] POCT-GLUCOSE [id number] 07:26:00 Test Item Value Reference Range Interpretation Comments POC-GLUCOSE METER 122 mg/dL 70-110 H : Notified RN/MD: (GABRIELA) (test code = TESTED AT [facility] 6720 1383) [place], [address]: [employer]/Techni arnold ID = [id number] for [facility] COMPREHENSIVE METABOLIC [id number] 05:22:00 Test Item Value Reference Range Interpretation [...] S NOT APPLICABLE FOR DIALYSIS PATIEN TS. [employer] ID - DALILA MB-TYPE NATRIURETIC FACTOR (BNP)2021-02-03 05:05:00 Test Item Value Reference Range Interpretation Comments B-TYPE NATRIURETIC PEPTIDE 2229 pg/mL 0-100 H (BEAKER) (test code = 700) [employer] ID - DALILA [id number] 05:02:00 Test Item Value Reference Range Interpretation Comments MAGNESIUM (BEAKER) (test code = 1.6 mg/dL 1.6-2.6 627) [employer] ID - DALILA [id number] 05:02:00 Test Item Value Reference Range Interpretation Comments PHOSPHORUS (BEAKER) (test code = 4.1 mg/dL 2.3-4.7 604) [employer] ID - DALILA MCALCIUM, [id number] 04:39:00 Test Item Value Reference Range Interpretation Comments CALCIUM IONIZED (BEAKER) (test 1.14 mmol/L 1.12-1.27 code = 698) PH, BLOOD (BEAKER) (test code = 7.48 1810) CBC W/PLT COUNT & AUTO [id number] 04:38:00 Test Item Value Reference Range Interpretation [...] PERCENT (BEAKER) (test code = 2801) POCT-GLUCOSE [id number] 21:22:00 Test Item Value Reference Range Interpretation Comments POC-GLUCOSE METER 165 mg/dL 70-110 H : TESTED A T [facility] 6720 (BEAKER) (test code = [place], 1538) [address]: [employer]/Techni arnold ID = [id number] for PH ILIP, JA URINALYSIS W/ [id number] 21:08:00 Test Item Value Reference Range Interpretation [...] 516) SOURCE(BEAKER) (test code = Urine, Voided 9306) [employer] ID - [auto][employer] ID - techCREATININE, RANDOM [id number] 21:08:00 Test Item Value Reference Range Interpretation Comments CREATININE URINE (BEAKER) (test 38.0 mg/dL code = 375) Reference Range: No NormalsOperator ID - BSPROTEIN, RANDOM [id number] 21:08:00 Test Item Value Reference Range Interpretation Comments PROTEIN, URINE (BEAKER) (test code = 78 mg/dL 0-14 H 1569) [employer] ID - BSPOCT-GLUCOSE [id number] 17:47:00 Test Item Value Reference Range Interpretation Comments POC-GLUCOSE METER 128 mg/dL 70-110 H : TESTED A T [facility] 6720 (BEAKER) (test code = [facility], 153) [address]: [employer]Techni arnold ID = [id number] for ZAPATA NNY, ALKA [id number] 13:18:00 Test Item Value Reference Range Interpretation Comments ACTIVATED CLOTTING TIME 263 sec : 74 -137 seconds, (BEAKER) (test code = Baseli ne: TESTED AT 441) [facility] [address] [facility], [address]: [employer]Techni arnold ID = [id number] for At Nazario hardenn [id number] 12:55:00 Test Item Value Reference Range Interpretation Comments ACTIVATED CLOTTING TIME 285 sec : 74 -137 seconds, (BEAKER) (test code = Baseli ne: TESTED AT 441) [facility] [address] [facility], [address]: [employer]/Techni arnold ID = [id number] for CO NDE, LEBRON POCT-GLUCOSE [id number] 12:08:00 Test Item Value Reference Range Interpretation Comments POC-GLUCOSE METER 151 mg/dL 70-110 H : TESTED A T [facility] 6720 (BEAKER) (test code = [facility], 153) [address]: [employer]Techni arnold ID = [id number] for ZAPATA NNY, ALKA POCT-GLUCOSE [id number] 08:00:00 Test Item Value Reference Range Interpretation Comments POC-GLUCOSE METER 209 mg/dL 70-110 H : TESTED A T [facility] 6720 (BEAKER) (test code = [place], 1538) [address]: [employer]/Techni arnold ID = [id number] for ALKA PIERCE TROPONIN [id number] 07:08:00 Test Item Value Reference Range Interpretation Comments TROPONIN I (BEAKER) (test code = 5.61 ng/mL 0.00-0.03 397) Troponin I (TnI) levels [...] failure, acidosis, acute neurological disease, and persistent tachyarrhythmia.[employer] ID - SLADECHUY LBASIC METABOLIC [id number] 06:41:00 Test Item Value Reference Range Interpretation [...] S NOT APPLICABLE FOR DIALYSIS PATIEN TS. [employer] ID - PIAYA [id number] 06:29:00 Test Item Value Reference Range Interpretation [...] 0-0 (BEAKER) (test code = 413) TROPONIN [id number] 23:15:00 Test Item Value Reference Range Interpretation Comments TROPONIN I (BEAKER) (test code = 0.90 ng/mL 0.00-0.03 397) Troponin I (TnI) levels [...] failure, acidosis, acute neurological disease, and persistent tachyarrhythmia.[employer] ID - BSPOCT-GLUCOSE METER 2021-02-01 20:47:00 Test Item Value Reference Range Interpretation Comments POC-GLUCOSE METER 304 mg/dL 70-110 H : TESTED A T [facility] 6720 [facility] (test code = [facility], 1538) [address]: [employer]/Techni arnold ID = [id number] for JA CAAL POCT-GLUCOSE [id number] 17:53:00 Test Item Value Reference Range Interpretation Comments POC-GLUCOSE METER 182 mg/dL 70-110 H : [facility] (BEAKER) (test code = [facility], 1538) [address]: [employer]Techni arnold ID = [id number] for KIM PULIDO [id number] 16:54:00 Test Item Value Reference Range Interpretation Comments ACTIVATED CLOTTING TIME 323 sec : 74 -137 seconds, (BEAKER) (test code = Baseli ne: TESTED AT 441) [address], [facility] 30: [employer]Techni arnold ID = [id number] for SA KAYLEE GAUTAME [id number] 16:23:00 Test Item Value Reference Range Interpretation Comments ACTIVATED CLOTTING TIME 285 sec : 74 -137 seconds, (BEAKER) (test code = Baseli ne: TESTED AT 441) [address], [facility] 30: [employer]Techni arnold ID = [id number] for JOAQUIN PARKER [id number] 15:59:00 Test Item Value Reference Range Interpretation Comments ACTIVATED CLOTTING TIME 224 sec : 74 -137 seconds, (BEAKER) (test code = Baseli ne: TESTED AT 441) [address], [facility] 30: [employer]Techni arnold ID = [id number] for PASHA PARKERA TROPONIN [id number] 13:53:00 Test Item Value Reference Range Interpretation Comments TROPONIN I ([facility] (test code = 0.65 ng/mL 0.00-0.03 [facility]) Troponin I (TnI) levels must be [...] failure, acidosis, acute neurological disease, and persistent tachyarrhythmia.[employer] ID - JING [id number] 13:30:00 Test Item Value Reference Range Interpretation Comments PARTIAL THROMBOPLASTIN TIME 24.9 seconds 22.5-36.0 (BEAKER) (test code = 760) POCT-GLUCOSE [id number] 12:15:00 Test Item Value Reference Range Interpretation Comments POC-GLUCOSE METER 176 mg/dL 70-110 H : TESTED A T [facility] 6720 (BEAKER) (test code = [place], 1538) [address]: [employer]Techni arnold ID = [id number] for Jose Luis Edwards HEMOGLOBIN [id number] 10:18:00 Test Item Value Reference Range Interpretation Comments HEMOGLOBIN A1C (BEAKER) (test code = 10.9 % 4.3-6.1 H 368) BASIC METABOLIC [id number] 10:09:00 Test Item Value Reference Range Interpretation [...] S NOT APPLICABLE FOR DIALYSIS PATIEN TS. [employer] ID - JING FLIPID [id number] 10:08:00 Test Item Value Reference Range Interpretation [...] Borderline 130-159 High 160-189 Very High >=190 [employer] ID - JING FPOCT-GLUCOSE [id number] 08:09:00 Test Item Value Reference Range Interpretation Comments POC-GLUCOSE METER 156 mg/dL 70-110 H : TESTED A T [facility] 6720 ([facility]) (test code = [place], 1538) [address]: [employer]Techni arnold ID = [id number] for Jose Luis Edwards TROPONIN [id number] 07:21:00 Test Item Value Reference Range Interpretation Comments TROPONIN I ([facility]) (test code = 0.85 ng/mL 0.00-0.03 [facility]) Troponin I (TnI) levels must be [...] failure, acidosis, acute neurological disease, and persistent tachyarrhythmia.[employer] ID - DALILA MB-TYPE NATRIURETIC FACTOR (BNP)2021-02-01 07:17:00 Test Item Value Reference Range Interpretation Comments B-TYPE NATRIURETIC PEPTIDE (GABRIELA) 204 pg/mL 0-100 H (test code = 700) [employer] ID - DALILA [id number] 06:55:00 Test Item Value Reference Range Interpretation Comments PARTIAL THROMBOPLASTIN TIME 59.4 seconds 22.5-36.0 H (GABRIELA) (test code = 760) 6 hours after starting heparin infusion and as indicated per sliding scaleCBC (HEMOGRAM ONLY)2021-02-01 06:49:00 Test Item Value Reference Range Interpretation Comments WHITE BLOOD CELL COUNT (GABRIELA) 6.2 K/ L 3.5-10.5 (test code = [...] 0-0 (BEAKER) (test code = 413) POCT-GLUCOSE [id number] 23:35:00 Test Item Value Reference Range Interpretation Comments POC-GLUCOSE METER 232 mg/dL 70-110 H : [facility] (BEAKER) (test code = SHAJI He [facility], 1538) [address]: [employer]Techni arnold ID = [id number] for Lashay Fontana TROPONIN [id number] 23:35:00 Test Item Value Reference Range Interpretation Comments TROPONIN I (BEAKER) (test code = 0.74 ng/mL 0.00-0.03 397) Troponin I (TnI) levels [...] failure, acidosis, acute neurological disease, and persistent tachyarrhythmia.[employer] ID - DBBASIC METABOLIC PANEL 2021-01-31 23:32:00 [...] S NOT APPLICABLE FOR DIALYSIS PATIEN TS. [employer] ID - [id number] 22:44:00 Test Item Value Reference Range Interpretation [...] = 413) RAD, CHEST, 1 VIEW, NON [id number] 21:59:00Reason for exam:->shortness of breathShould this be performed at the bedside?->Yes [facility] : 1940 Sex: [...] pneumothorax. No acute osseous abnormality. Signed: Jahaira Cohenort Verified Date/Time: 01/31/2021 21:59:25 Electronically signedby: JAHAIRA COHEN MD on 01/31/2021 09:59 [id number] (COVID-19) RNA [Presence] in Respiratory specimen by SHERI with probe [id number] 23:06:42 Test Item Value Reference Range Interpretation Comments SARS-CoV-2 (COVID-19) RNA Not detected Not-Detected [Presence] in Respiratory specimen by SHERI with probe detection (test code = 81967-1) POCT-GLUCOSE [id number] 08:39:00 Test Item Value Reference Range Interpretation Comments POC-GLUCOSE METER 113 mg/dL 70-110 H TESTED AT [facility] 7200 (ADRIANOEVER) (test code CAMBSHREYASG E BLDG B = 1538) [facility] 7703 0
[2021-12-14] MEDS ORDERED: CEFTRIAXONE 1000 MG/VIAL ONE (14:35)
[2021-12-14] MEDS ORDERED: NA CHLORIDE 0.9% 1,000 ML ONE (14:35)
[2021-12-14 14:59] LABS: Absolute Lymphocytes (CBC) 0.6 K/uL (0.7-4.9); Hematocrit 35.8 % (36.0-45.0); Lymphocytes % 3.5 % (15.3-44.8); RBC Red Blood Cell Count 3.92 M/uL (3.86-4.86)
--- NOTE | 2021-12-14 15:17 | RAD REPORT ---
EXAM DESCRIPTION: RAD - Chest Single View - 12/14/2021 3:00 pm CLINICAL HISTORY: CONGESTION COMPARISON: Portable January 2021 TECHNIQUE: AP portable chest image was obtained 12/14/2021 3:00 pm . 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 In the left lower lung field superimposed on the left heart border there is rounded massl jerry density. Additional focal density is present in the mid left lung field. Coronary artery stents a re in place. Additionally, there is a left atrial appendage closure device in place. Heart and vascul ature are normal. No measurable pleural effusion and no pneumothorax. No acute bony abnormality seen. No acute aortic findings suspected. IMPRESSION: Masslike density in the medial left lung base and left midlung field. In the acute clinical setting this is most likely areas of pneumonia. Continued close follow-up is needed to assure complete clearing.
[2021-12-14 15:33] LABS: Albumin 2.4 g/dL (3.4-5.0); Bilirubin Direct 0.4 mg/dL (0-0.2); Potassium 4.1 mmol/L (3.5-5.1); Protein, Total 8.2 g/dL (6.4-8.2)
--- NOTE | 2021-12-14 15:41 | EDPHYS ---
Physician Documentation [facility] Name: Carlita Villalobos Age: 81 yrs Sex: Female : 1940 Arrival Date: 12/14/2021 Time: 12:45 Bed 25 Private MD: Kapil Servin ED Physician Duke Sanchez HPI: 12/14 14:24 This 81 yrs old Female presents to ER via Ambulatory with complaints of Fall Injury, ma2 Weakness, High Blood Sugar. 14:24 This 81 yrs old Female presents to ER via Ambulatory with complaints of Weakness, High ma2 Blood Sugar. 14:24 Onset: The symptoms/episode began/occurred gradually, 1 day(s) ago. Severity of ma2 symptoms: At their worst the symptoms were mild, in the emergency department the symptoms are unchanged. The patient has experienced similar episodes in the past. Historical: - Allergies: 13:02 Sulfa (Sulfonamide Antibiotics); jg9 - PMHx: 13:02 Diabetes - IDDM; Hypertension; Hypothyroidism; jg9 - PSHx: 13:02 cardiac stents; jg9 - Immunization history:: Client reports receiving the 2nd dose of the Covid vaccine, Client reports having NOT received the Covid vaccine. Pneumococcal vaccine is up to date, Flu vaccine is up to date. Flu vaccine is up to date. - Social history:: Smoking status: Patient/guardian denies using tobacco, the patient reports quitting approximately 50 years ago, Patient/guardian denies using alcohol, street drugs, The patient lives with family. - Family history:: not pertinent. ROS: 14:24 Constitutional: Negative for fever, chills, and weight loss. ma2 14:24 All other systems are negative. Exam: 14:24 Constitutional: This is a well developed, well nourished patient who is awake, alert, ma2 and in no acute distress. Head/Face: Normocephalic, atraumatic. Eyes: Pupils equal round and reactive to light, extra-ocular motions intact. Lids and lashes normal. Conjunctiva and sclera are non-icteric and not injected. Cornea within normal limits. Periorbital areas with no swelling, redness, or edema. ENT: Nares patent. No nasal discharge, no septal abnormalities noted. Tympanic membranes are normal and external auditory canals are clear. Oropharynx with no redness, swelling, or masses, exudates, or evidence of obstruction, uvula midline. Mucous membranes moist. Neck: Trachea midline, no thyromegaly or masses palpated, and no cervical lymphadenopathy. Supple, full range of motion without nuchal rigidity, or vertebral point tenderness. No Meningismus. Chest/axilla: Normal chest wall appearance and motion. Nontender with no deformity. No lesions are appreciated. Cardiovascular: Regular rate and rhythm with a normal S1 and S2. No gallops, murmurs, or rubs. Normal PMI, no JVD. No pulse deficits. Respiratory: Lungs have equal breath sounds bilaterally, clear to auscultation and percussion. No rales, rhonchi or wheezes noted. No increased work of breathing, no retractions or nasal flaring. Abdomen/GI: Soft, non-tender, with normal bowel sounds. No distension or tympany. No guarding or rebound. No evidence of tenderness throughout. Skin: Warm, dry with normal turgor. Normal color with no rashes, no lesions, and no evidence of cellulitis. MS/ Extremity: Pulses equal, no cyanosis. Neurovascular intact. Full, normal range of motion. Neuro: Awake and alert, GCS 15, oriented to person, place, time, and situation. Cranial nerves II-XII grossly intact. Motor strength 5/5 in all extremities. Sensory grossly intact. Cerebellar exam normal. Normal gait. Vital Signs: 13:04 BP 144 / 56; Pulse 90; Resp 17 S; Temp 98.8; Pulse Ox 98% ; Weight 52.16 kg (R); Height jg9 5 ft. 4 in. (162.56 cm) (R); 14:45 BP 139 / 62; Pulse 122; Resp 18; Pulse Ox 98% on R/A; ld1 15:18 BP 155 / 101; Pulse 100; Resp 18; Pulse Ox 95% on R/A; ab2 16:40 BP 146 / 102; Pulse 126; Resp 18; Pulse Ox 96% on R/A; ab2 17:30 BP 137 / 86; Pulse 128; Resp 17; Pulse Ox 94% on R/A; ab2 18:12 BP 135 / 84; Pulse 126; Resp 16; Pulse Ox 98% on R/A; ab2 18:37 BP 134 / 90; Pulse 127; Resp 16; Pulse Ox 94% on R/A; ab2 19:20 BP 156 / 95; Pulse 129; Resp 18; Pulse Ox 95% on R/A; ab2 20:38 BP 126 / 93; Pulse 112; Resp 16; Pulse Ox 94% ; Pain 0/10; ab2 13:04 Body Mass Index 19.74 (52.16 kg, 162.56 cm) jg9 MDM: 13:33 Patient medically screened. ma2 15:39 Differential diagnosis: Patient is hyperglycemic white count elevated as pneumonia, ma2 discussed with Dr. Servin. Data reviewed: vital signs, nurses notes. Counseling: I had a detailed discussion with the patient and/or guardian regarding: the historical points, exam findings, and any diagnostic results supporting the discharge/admit diagnosis, the presence of at least one elevated blood pressure reading (>120/80) during this emergency department visit, the need for outpatient follow up. Response to treatment: the patient's symptoms have markedly improved after treatment. 12/14 13:12 Order name: Glucose, Ancillary Testing; Complete Time: 15:27 [facility] 12/14 13:52 Order name: Basic Metabolic Panel; Complete Time: 16:14 [facility] 12/14 13:52 Order name: CBC with Diff; Complete Time: 15:27 [facility] 12/14 13:52 Order name: Hepatic Function; Complete Time: 16:14 [facility] 12/14 13:52 Order name: Lipase; Complete Time: 16:14 [facility] 12/14 13:52 Order name: SARS-COV-2 RT PCR (Document "Date of Onset" if Symptomatic); Complete Time: [facility] 16:14 12/14 13:52 Order name: Chest Single View XRAY; Complete Time: 15:27 [facility] 12/14 19:43 Order name: Social Service Consult [facility] 12/14 19:47 Order name: Physical Therapy Consult [facility] 12/14 13:52 Order name: IV Saline Lock; Complete Time: 14:45 [facility] 12/14 13:52 Order name: Labs collected and sent; Complete Time: 14:45 [facility] 12/14 19:47 Order name: 60g Consistent Carbohydrate (ADA 1800/1999) EDSD Administered Medications: 14:45 Drug: NS 0.9% 1000 ml Route: IV; Rate: 125 ml/hr; Site: right forearm; ld1 17:02 Follow up: Response: No adverse reaction; IV Status: Completed infusion ab2 14:45 Drug: Rocephin (cefTRIAXone) 1 grams Route: IV; Rate: calculated rate; Site: right ld1 forearm; 17:02 Follow up: Response: No adverse reaction; IV Status: Completed infusion ab2 16:00 Drug: AZITHromycin 500 mg Route: IVPB; Infused Over: 1 hrs; Site: left antecubital; ab2 17:03 Follow up: Response: No adverse reaction; IV Status: Completed infusion ab2 18:38 Follow up: IV Status: Completed infusion ab2 16:59 Drug: Insulin Regular Human 5 units {Co-Signature: iw (Madie Perry RN).} Route: IVP; ab2 Site: right antecubital; 17:02 Follow up: Response: No adverse reaction ab2 Disposition Summary: 12/14/21 15:40 Hospitalization Ordered Hospitalization Status: Inpatient Admission ma2 Provider: Kapil Servin ma [facility] ma2 Condition: Stable ma2 Problem: new ma2 Symptoms: are unchanged ma2 Bed/Room Type: Standard wy2 Room Assignment: 224(12/14/21 20:16) eb1 Diagnosis - Other pneumonia, unspecified organism ma2 - Elevated white blood cell count ma2 - Hyperglycemia, unspecified ma2 Forms: - Medication Reconciliation Form ma2 - SBAR form ma2 Signatures: Dispatcher [employer] EDDuke Casillas MD MD ma2 Janet Rose RN RN eb1 Daphne Osuna RN RN ld1 Shona Ho RN RN [email or web address] Catalino Bird ab2 Madie Perry RN iw Corrections: (The following items were deleted from the chart) 13:04 13:02 PMHx: Atrial Fib; jg9 jg9 20:16 15:40 ma2 eb1
--- NOTE | 2021-12-14 15:41 | ER ---
Nurse's Notes [facility] Name: Carlita Villalobos Age: 81 yrs Sex: Female : 1940 Arrival Date: 12/14/2021 Time: 12:45 Bed 25 Private MD: Kapil Servin Diagnosis: Other pneumonia, unspecified organism;Elevated white blood cell count;Hyperglycemia, unspecified Presentation: 12/14 13:00 Chief complaint: Patient's son or daughter states: Patient had an elevated BGL 400's jg9 which is chronic for the patient but today the patient fell when getting out of bed, - loc, - thinners, - pain. Patient is weak and unable to walk, BGL in triage 447mg/dl. Mechanism of Injury: patient slid out of bed onto the floor and attempted to crawl to the phoe but daughter had been trying to call and showed up and found patient on the floor. 13:00 Acuity: PARESH 3 jg9 13:00 Method Of Arrival: Ambulatory [facility] 13:04 Coronavirus screen: Vaccine status: Patient reports being unvaccinated. Ebola Screen: jg9 Patient negative for fever greater than or equal to 101.5 degrees Fahrenheit, and additional compatible Ebola Virus Disease symptoms Patient denies exposure to infectious person. Patient denies travel to an Ebola-affected area in the 21 days before illness onset. Initial Sepsis Screen: Does the patient have a suspected source of infection? No. Patient's initial sepsis screen is negative. Risk Assessment: Do you want to hurt yourself or someone else? Patient reports no desire to harm self or others. Onset of symptoms is unknown. 13:06 Initial Sepsis Screen: Does the patient meet any 2 criteria? No. Patient's initial jg9 sepsis screen is negative. Triage Assessment: 13:05 General: Appears in no apparent distress. Behavior is calm. Pain: Denies pain. jg9 Historical: - Allergies: 13:02 Sulfa (Sulfonamide Antibiotics); jg9 - PMHx: 13:02 Diabetes - IDDM; Hypertension; Hypothyroidism; jg9 - PSHx: 13:02 cardiac stents; jg9 - Immunization history:: Client reports receiving the 2nd dose of the Covid vaccine, Client reports having NOT received the Covid vaccine. Pneumococcal vaccine is up to date, Flu vaccine is up to date. Flu vaccine is up to date. - Social history:: Smoking status: Patient/guardian denies using tobacco, the patient reports quitting approximately 50 years ago, Patient/guardian denies using alcohol, street drugs, The patient lives with family. - Family history:: not pertinent. Screenin:05 Abuse screen: Denies threats or abuse. Denies injuries from another. Nutritional jg9 screening: No deficits noted. Tuberculosis screening: No symptoms or risk factors identified. Fall Risk Assessment: 14:45 General: Appears in no apparent distress. comfortable, Behavior is calm, cooperative, ld1 appropriate for age. Pain: Denies pain. Neuro: Level of Consciousness is awake, alert, obeys commands, Oriented to person, place, time, situation, Reports weakness. Cardiovascular: Capillary refill < 3 seconds Patient's skin is warm and dry. Respiratory: Airway is patent Respiratory effort is even, unlabored, Respiratory pattern is regular, symmetrical. GI: Abdomen is flat, non-distended. : No signs and/or symptoms were reported regarding the genitourinary system. Vital Signs: 13:04 BP 144 / 56; Pulse 90; Resp 17 S; Temp 98.8; Pulse Ox 98% ; Weight 52.16 kg (R); Height jg9 5 ft. 4 in. (162.56 cm) (R); 14:45 BP 139 / 62; Pulse 122; Resp 18; Pulse Ox 98% on R/A; ld1 15:18 BP 155 / 101; Pulse 100; Resp 18; Pulse Ox 95% on R/A; ab2 16:40 BP 146 / 102; Pulse 126; Resp 18; Pulse Ox 96% on R/A; ab2 17:30 BP 137 / 86; Pulse 128; Resp 17; Pulse Ox 94% on R/A; ab2 18:12 BP 135 / 84; Pulse 126; Resp 16; Pulse Ox 98% on R/A; ab2 18:37 BP 134 / 90; Pulse 127; Resp 16; Pulse Ox 94% on R/A; ab2 19:20 BP 156 / 95; Pulse 129; Resp 18; Pulse Ox 95% on R/A; ab2 20:38 BP 126 / 93; Pulse 112; Resp 16; Pulse Ox 94% ; Pain 0/10; ab2 13:04 Body Mass Index 19.74 (52.16 kg, 162.56 cm) jg9 ED Course: 12:45 Patient arrived in ED. mr 12:45 Kapil Servin MD is Private Physician. mr 13:02 Triage completed. jg9 13:06 Arm band placed on right wrist. jg9 13:33 Duke Sanchez MD is Attending Physician. ma2 14:28 Daphne Osuna, KIRAN is Primary Nurse. ld1 14:45 Patient has correct armband on for positive identification. Bed in low position. Call ld1 light in reach. Pulse ox on. NIBP on. Door closed. Noise minimized. 14:45 SARS-COV-2 RT PCR (Document "Date of Onset" if Symptomatic) Sent. ld1 14:45 No provider procedures requiring assistance completed. Inserted saline lock: 20 gauge ld1 in right forearm, using aseptic technique. Blood collected. 15:00 Chest Single View XRAY In Process Unspecified. EDMS 15:40 Kapil Servin MD is Hospitalizing Provider. ma2 Administered Medications: 14:45 Drug: NS 0.9% 1000 ml Route: IV; Rate: 125 ml/hr; Site: right forearm; ld1 17:02 Follow up: Response: No adverse reaction; IV Status: Completed infusion ab2 14:45 Drug: Rocephin (cefTRIAXone) 1 grams Route: IV; Rate: calculated rate; Site: right ld1 forearm; 17:02 Follow up: Response: No adverse reaction; IV Status: Completed infusion ab2 16:00 Drug: AZITHromycin 500 mg Route: IVPB; Infused Over: 1 hrs; Site: left antecubital; ab2 17:03 Follow up: Response: No adverse reaction; IV Status: Completed infusion ab2 18:38 Follow up: IV Status: Completed infusion ab2 16:59 Drug: Insulin Regular Human 5 units {Co-Signature: iw (Madie Perry RN).} Route: IVP; ab2 Site: right antecubital; 17:02 Follow up: Response: No adverse reaction ab2 Outcome: 15:40 Decision to Hospitalize by Provider. ma2 20:39 Admitted to Med/surg family with patient, via wheelchair, with chart, Report called to ab2 medical records coordinator 21:13 Patient left the ED. ab2 Signatures: Dispatcher [employer] EDDhara Freeman mr Laura, MD LORENZA Wall ma2 Daphne Osuna RN RN ld1 Shona Ho RN RN jg9 Catalino Bird RN iw Corrections: (The following items were deleted from the chart) 13:04 13:02 PMHx: Atrial Fib; jg9 jg9
[2021-12-14] MEDS ORDERED: NA CHLORIDE 0.9% 250 ML ONE (15:56)
[2021-12-14] MEDS ORDERED: AZITHROMYCIN 500 MG INJ IVPB ONE (15:56)
[2021-12-14] MEDS ORDERED: INSULIN -REGULAR HUMAN 50 UNIT/0.5 ML ML ONE (17:01)
--- NOTE | 2021-12-14 19:36 | P.HP ---
Certification for Inpatient Patient admitted to: Inpatient With expected LOS: >2 Midnights Patient will require the following post-hospital care: Home Health Services Practitioner: I am a practitioner with admitting privileges, knowledge of patient current condition, hospital course, and medical plan of care. Services: Services provided to patient in accordance with Admission requirements found in Title 42 Section 412.3 of the Code of Federal Regulations Patient History Date of Service: 12/14/21 Primary Care Provider: [facility] Reason for admission: pneumonia History of Present Illness: Patient is an office patient of [facility]. History of diabetes. she has started having elevated blood sugars the last few days. Came to the office yesterday. However she did not have any symptoms of sob or fevers. We had increased her insulin. However today the patient was weak and could not walk. Brought to the ER. Found to have a pneumonia. Her creatine was elevated to 3.1 from her baseline of 1.7. Bun is 68. Her Curb 65 score is 2 or 3% 30 day mortality. her sugars were also very elevated. Allergies Sulfa (Sulfonamide Antibiotics) Allergy (Intermediate, Verified 01/28/21 01:12) Nausea/Vomiting/flu like symptoms Home Medications: Apixaban [Eliquis] 2.5 mg PO BID 01/28/21 Atorvastatin Calcium [Lipitor] 80 mg PO BEDTIME 01/28/21 Dulaglutide [Trulicity] 0.75 mg SQ EVERY 7TH DAY 01/28/21 Furosemide [Lasix] 40 mg PO DAILY 01/28/21 Levothyroxine [Synthroid] 88 mcg PO [id number] 01/28/21 Metoprolol Succinate [Toprol Xl] 50 mg PO BID 01/28/21 Nifedipine [Procardia Xl] 60 mg PO DAILY 01/28/21 Sodium Bicarbonate 650 mg PO TID 01/28/21 - Past Medical/Surgical History Diabetic: Yes -: Diabetes mellitus type 2 insulin-dependent -: Hypothyroidism -: Atrial fibrillation not on chronic anti coagulation therapy -: COPD -: HTN -: History of MAC pulmonary infection -: Back surgery -: Hysterectomy -: Bladder suspension -: Benign tumor removed from right arm -: Tonsillectomy -: Thyroid nodule removed with some thyroid Psychosocial/ Personal History: , 4-children, She does not work. - Family History Father -: Heart disease, Diabetes Notes: Sister -: Diabetes Mother -: Diabetes Brother -: Diabetes - Social History Alcohol use: No CD- Drugs: No Caffeine use: No Review of Systems General: Weakness, Malaise Physical Examination - Physical Exam General: Alert, In no apparent distress HEENT: Atraumatic, PERRLA, Mucous membr. moist/pink, EOMI, Sclerae nonicteric Neck: Supple, 2+ carotid pulse no bruit, No LAD, Without JVD or thyroid abnormality Respiratory: Clear to auscultation bilaterally, Diminished Cardiovascular: Regular rate/rhythm, Normal S1 S2 Gastrointestinal: Normal bowel sounds, No tenderness Musculoskeletal: No tenderness Integumentary: No rashes Neurological: Normal gait, Normal speech, Normal strength at 5/5 x4 extr, Normal tone, Normal affect Lymphatics: No axilla or inguinal lymphadenopathy - Studies Laboratory Data (last 24 hrs) 12/14/21 14:41: WBC 16.10 H, Hgb 11.5 L, Hct 35.8 L, Plt Count 170 12/14/21 14:41: Sodium 124 L, Potassium 4.1, BUN 68 H, Creatinine 3.11 H, Glucose 592 H*, Total Bilirubin 1.0, AST 60 H, ALT 45, Alkaline Phosphatase 119 H, Lipase 140 Assessment and Plan - Problems (Diagnosis) (1) Pneumonia Current Visit: Yes Status: Acute Plan: Patient will be admitted. Order blood cultures. Start the patient on fluids. Will keep her here for a few days till her labs recover Qualifiers: Pneumonia type: due to unspecified organism Laterality: left Lung location: lower lobe of lung Qualified Code(s): J18.9 - Pneumonia, unspecified organism (2) Atrial fibrillation Onset Date: 11/15/15 Current Visit: No Status: Chronic Qualifiers: Atrial fibrillation type: paroxysmal Qualified Code(s): I48.0 - Paroxysmal atrial fibrillation (3) CKD stage 4 due to type 2 diabetes mellitus Current Visit: No Status: Acute Plan: will start her on fluids. Montor her creatine. If there is no improvement we can consult nephro. (4) DM2 (diabetes mellitus, type 2) Current Visit: No Status: Chronic Plan: she is no tresiba 32 units. Will start her on this with sliding scale coverage. Continue fluids. Qualifiers: Diabetes mellitus custodial insulin use: with custodial use Diabetes mellitus complication detail: with nephropathy (5) Atrial fibrillation Current Visit: No Status: Chronic Plan: will monitor and restart her home metoprolol. Qualifiers: Atrial fibrillation type: unspecified chronic Qualified Code(s): I48.20 - Chronic atrial fibrillation, unspecified; I48.2 - Chronic atrial fibrillation Discharge Plan: Home Plan to discharge in: 48 Hours - Advance Directives Does patient have a Living Will: Yes Does patient have a Durable POA for Healthcare: Yes - Code Status/Comfort Care Code Status Assessed: No Code Status: Full Code Physician Review: Patient Assessed, Agree with Above Assessment and Plan Critical Care: No Time Spent Managing Pts Care (In Minutes): 70
[2021-12-14] MEDS ORDERED: D50W 25 GM/50 ML SYRINGE IV PRN (19:44)
[2021-12-14] MEDS ORDERED: GLUCAGON 1 MG/VIAL IM PRN (19:44)
[2021-12-14] MEDS ORDERED: Levofloxacin500mg IV 500 MG/100 ML BAG IV SCH (20:00)
[2021-12-14] MEDS ORDERED: LEVOFLOXACIN 750MG/D5W 150 ML IV ONE (21:00)
[2021-12-14] MEDS: APIXABAN 2.5 MG TABLET PO SCH (21:00)
[2021-12-14] MEDS ORDERED: Levofloxacin500mg IV 500 MG/100 ML BAG IV ONE (21:00)
[2021-12-14] MEDS: NA CHLORIDE 0.9% 1,000 ML IV SCH (22:06)
[2021-12-14] MEDS: ATORVASTATIN 80 MG TAB PO SCH (22:12)
[2021-12-14] MEDS: METOPROLOL XL 50 MG TAB PO SCH (22:12)
[2021-12-14] MEDS: INSULIN -REGULAR HUMAN 50 UNIT/0.5 ML ML SQ SCH (22:28)
[2021-12-14] MEDS: guaiFENesin 100 MG/5 ML UCUP PO PRN (22:46)
[2021-12-14 23:44] VITALS: BMI 19.7
[2021-12-15] MEDS: LEVOTHYROXINE SOD 0.088 MG TAB PO SCH (05:20)
[2021-12-15 07:30] LABS: Absolute Lymphocytes (CBC) 0.7 K/uL (0.7-4.9); Hematocrit 29.3 % (36.0-45.0); Lymphocytes % 5.7 % (15.3-44.8); MPV 10.3 fL (7.6-11.3); RBC Red Blood Cell Count 3.26 M/uL (3.86-4.86)
[2021-12-15 08:03] LABS: Albumin 1.6 g/dL (3.4-5.0); Bilirubin Total 0.6 mg/dL (0.2-1.0); Protein, Total 6.4 g/dL (6.4-8.2)
--- NOTE | 2021-12-15 08:33 | P.PN ---
Subjective Date of Service: 12/15/21 Primary Care Provider: Gareth Chief Complaint: pneumonia Subjective: Improving Review of Systems 10-point ROS is otherwise unremarkable Physical Examination - Vital Signs Temperature: 97.6 F Blood Pressure: 100/56 Pulse: 121 Respirations: 17 Pulse Ox (%): 94 - Physical Exam General: Alert, In no apparent distress HEENT: Atraumatic, PERRLA, EOMI Neck: Supple, JVD not distended Respiratory: Clear to auscultation bilaterally, Normal air movement Cardiovascular: Regular rate/rhythm, Normal S1 S2 Gastrointestinal: Normal bowel sounds, No tenderness Musculoskeletal: No tenderness Integumentary: No rashes Neurological: Normal speech, Normal tone, Normal affect Lymphatics: No axilla or inguinal lymphadenopathy - Studies Laboratory Data (last 24 hrs) 12/14/21 14:41: WBC 16.10 H, Hgb 11.5 L, Hct 35.8 L, Plt Count 170 12/14/21 14:41: Sodium 124 L, Potassium 4.1, BUN 68 H, Creatinine 3.11 H, Glucose 592 H*, Total Bilirubin 1.0, AST 60 H, ALT 45, Alkaline Phosphatase 119 H, Lipase 140 Assessment And Plan - Current Problems (Diagnosis) (1) Pneumonia Current Visit: Yes Status: Acute Plan: Patient will be admitted. Order blood cultures. Start the patient on fluids. Will keep her here for a few days till her labs recover 2/3 wbc, creatine and glucose are improving. cultures not drawn. Will continue levaquin Qualifiers: Pneumonia type: due to unspecified organism Laterality: left Lung location: lower lobe of lung Qualified Code(s): J18.9 - Pneumonia, unspecified organism (2) Atrial fibrillation Onset Date: 11/15/15 Current Visit: No Status: Chronic Plan: she is not well controlled. Will increase her metoprolol to 50m Qualifiers: Atrial fibrillation type: paroxysmal Qualified Code(s): I48.0 - Paroxysmal atrial fibrillation (3) CKD stage 4 due to type 2 diabetes mellitus Current Visit: No Status: Acute Plan: will start her on fluids. Montor her creatine. If there is no improvement we can consult nephro. 2/[address] Edwards. Her and see. (4) DM2 (diabetes mellitus, type 2) Current Visit: No Status: Chronic Plan: she is no tresiba 32 units. Will start her on this with sliding scale coverage. Continue fluids. 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 Qualifiers: Atrial fibrillation type: unspecified chronic Qualified Code(s): I48.20 - Chronic atrial fibrillation, unspecified; I48.2 - Chronic atrial fibrillation Discharge Plan: Home Plan to discharge in: 24 Hours Physician Review: Patient Assessed, Agree with Above Assessment and Plan
[2021-12-15 08:53] LABS: Blood Morphology Comment NOT SEEN (NOT SEEN); Platelet Estimate ADEQ
[2021-12-15] MEDS: METOPROLOL XL 50 MG TAB PO SCH ×2 (09:37→22:06)
[2021-12-15] MEDS: APIXABAN 2.5 MG TABLET PO SCH ×2 (09:37→22:06)
[2021-12-15] MEDS: INSULIN -REGULAR HUMAN 50 UNIT/0.5 ML ML SQ SCH ×4 (09:37→22:14)
[2021-12-15] MEDS: NA CHLORIDE 0.9% 1,000 ML IV SCH ×2 (09:41→22:15)
[2021-12-15] MEDS: guaiFENesin 100 MG/5 ML UCUP PO PRN ×2 (09:47→22:04)
--- NOTE | 2021-12-15 11:07 | P.CNS ---
Date of Consult: 12/15/21 Reason for Consult: LEE ANN/ CKD Requesting Physician: Kapil Servin Primary Care Provider: Gareth Chief Complaint: pneumonia History of Present Illness: 81 yo WF DM, CKD presented to the hospital with several days of moderate, progressive weakness with associated cough. She reports anorexia with poor urine output. No NSAIDs. Loose stools. History of diabetes. she has started having elevated blood sugars the last few days. However today the patient was weak and could not walk. Brought to the ER. Found to have a pneumonia. Her creatine was elevated to 3.1 from her baseline of 1.7. Bun is 68. Her Curb 65 score is 2 or 3% 30 day mortality. her sugars were also very elevated. 14:24 This 81 yrs old Female presents to ER via Ambulatory with complaints of Fall Injury, ma2 Weakness, High Blood Sugar. 14:24 This 81 yrs old Female presents to ER via Ambulatory with complaints of Weakness, High ma2 Blood Sugar. 14:24 Onset: The symptoms/episode began/occurred gradually, 1 day(s) ago. Severity of ma2 symptoms: At their worst the symptoms were mild, in the emergency department the symptoms are unchanged. The patient has experienced similar episodes in the past. Allergies Sulfa (Sulfonamide Antibiotics) Allergy (Intermediate, Verified 12/14/21 23:25) Nausea/Vomiting/flu like symptoms Home medications list reviewed: Yes Home Medications: Ascorbic Acid [Vitamin C] 500 mg PO DAILY 12/14/21 Aspirin [Aspirin EC 81 MG] 81 mg PO DAILY 12/14/21 Atorvastatin Calcium 40 mg PO BEDTIME 12/14/21 Cholecalciferol (Vitamin D3) [Vitamin D 1000 Iu Tab] 1,000 unit PO DAILY 12/14/21 Clopidogrel Bisulfate [Plavix] 75 mg PO DAILY 12/14/21 Insulin Degludec [Tresiba] 28 unit SQ DAILY 12/14/21 Levothyroxine [Synthroid] 88 mcg PO DAILY 12/14/21 Memantine HCl 5 mg PO DAILY 12/14/21 Metoprolol Tartrate 25 mg PO BID 12/14/21 Montelukast [Singulair] 10 mg PO DAILY 12/14/21 Telmisartan 40 mg PO DAILY 12/14/21 Zinc 50 mg PO DAILY 12/14/21 - Past Medical/Surgical History Diabetic: Yes -: Diabetes mellitus type 2 insulin-dependent -: Hypothyroidism -: Atrial fibrillation not on chronic anti coagulation therapy -: COPD -: HTN -: History of MAC pulmonary infection -: Back surgery -: Hysterectomy -: Bladder suspension -: Benign tumor removed from right arm -: Tonsillectomy -: Thyroid nodule removed with some thyroid Psychosocial/ Personal History: , 4-children, She does not work. - Family History Father Medical History: Heart disease, Diabetes Notes: Sister Medical History: Diabetes Mother Medical History: Diabetes Brother Medical History: Diabetes - Social History Alcohol use: No CD- Drugs: No Caffeine use: Yes Place of Residence: Home Review of Systems 10-point ROS is otherwise unremarkable General: Weakness, Malaise Neurological: Weakness Physical Examination Temp Pulse Resp BP Pulse Ox 97.6 F 121 H 17 100/56 L 94 12/15/21 08:32 12/15/21 09:37 12/15/21 08:32 12/15/21 09:37 12/15/21 08:32 General: In no apparent distress, Oriented x3, Cooperative HEENT: Atraumatic Neck: Supple Respiratory: Clear to auscultation bilaterally, Normal air movement Cardiovascular: No edema, Regular rate/rhythm Gastrointestinal: Soft and benign, Non-distended Musculoskeletal: No clubbing, No contractures Integumentary: No rashes Neurological: Normal speech Laboratory Data (last 24 hrs) 12/14/21 14:41: WBC 16.10 H, Hgb 11.5 L, Hct 35.8 L, Plt Count 170 12/14/21 14:41: Sodium 124 L, Potassium 4.1, BUN 68 H, Creatinine 3.11 H, Glucos e 592 H*, Total Bilirubin 1.0, AST 60 H, ALT 45, Alkaline Phosphatase 119 H, Lipase 140 Imagings Data: EXAM DESCRIPTION: RAD - Chest Single View - 12/14/2021 3:00 pm CLINICAL HISTORY: CONGESTION COMPARISON: Portable January 2021 TECHNIQUE: AP portable chest image was obtained 12/14/2021 3:00 pm . FINDINGS: Baseline fibrotic lung pattern is again noted without significant ch neyda in the severity of fibrosis. In the left lower lung field superimposed on the left heart border there is rounded masslike density. Additional focal density is present in the mid left lung field. Coronary artery stents are in place. Additionally, there is a left atrial appendage closure device in place. Heart and vasculature are normal. No measurable pleural effusion and no pneumothorax. No acute bony abnormality seen. No acute aortic findings suspected. IMPRESSION: Masslike density in the medial left lung base and left midlung field. In the acute clinical setting this is most likely areas of pneumonia. Continued close follow-up is needed to assure complete clearing. Conclusions/Impression: LEE ANN likely due to hypovolemia CKD III -Agree with IVF Hyponatremia -Continue IVF with NS Acidosis -Correct renal fx Hypocalcemia -Start Vitamin D HTN with CKD -Continue metoprolol DM II with CKD -RISS Severe malnutrition -Start Nepro Anemia in chronic illness -Monitor H&H Thank you for the consultation. Case reviewed with Dr. Servin
[2021-12-15] MEDS: NEPRO SHAKE 237 ML CAN PO SCH ×2 (12:51→22:07)
[2021-12-15] MEDS ORDERED: ENOXAPARIN 30 MG/0.3 ML SQ SCH (17:00)
[2021-12-15] MEDS ORDERED: ZOLPIDEM TARTRATE 5 MG TABLET PO ONE (21:00)
[2021-12-15] MEDS: ATORVASTATIN 80 MG TAB PO SCH (22:07)
[2021-12-16] MEDS: LEVOTHYROXINE SOD 0.088 MG TAB PO SCH (05:29)
[2021-12-16 06:25] LABS: Lymphocytes % 10.4 % (15.3-44.8); MPV 10.2 fL (7.6-11.3); RBC Red Blood Cell Count 3.54 M/uL (3.86-4.86)
[2021-12-16 06:45] LABS: Albumin 1.6 g/dL (3.4-5.0); Bilirubin Total 0.3 mg/dL (0.2-1.0); Potassium 4.1 mmol/L (3.5-5.1); Protein, Total 6.5 g/dL (6.4-8.2)
[2021-12-16 06:58] LABS: Phosphorus 3.2 mg/dL (2.5-4.9); Uric Acid 8.3 mg/dL (2.6-6.0)
[2021-12-16] MEDS ORDERED: ALBUMIN HUMAN 25% 200 ML IV ONE (08:00)
[2021-12-16] MEDS ORDERED: ALBUMIN HUMAN 25% 100 ML IV ONE (09:00)
[2021-12-16] MEDS: APIXABAN 2.5 MG TABLET PO SCH ×2 (09:04→20:34)
[2021-12-16] MEDS: CALCITROL 0.25 MCG CAP PO SCH (09:04)
[2021-12-16] MEDS: METOPROLOL XL 50 MG TAB PO SCH ×2 (09:04→20:34)
[2021-12-16] MEDS: VITAMIN D 5,000 UNIT CAP PO SCH (09:04)
[2021-12-16] MEDS: INSULIN -REGULAR HUMAN 50 UNIT/0.5 ML ML SQ SCH ×4 (09:04→20:35)
[2021-12-16] MEDS: NEPRO SHAKE 237 ML CAN PO SCH ×3 (09:06→20:37)
--- NOTE | 2021-12-16 11:41 | P.PN ---
Subjective Date of Service: 12/16/21 Primary Care Provider: Gareth Chief Complaint: pneumonia Subjective: No new changes Review of Systems 10-point ROS is otherwise unremarkable Physical Examination - Vital Signs Temperature: 97 F Blood Pressure: 127/77 Pulse: 94 Respirations: 18 Pulse Ox (%): 97 - Physical Exam General: Alert, In no apparent distress HEENT: Atraumatic, PERRLA, EOMI Neck: Supple, JVD not distended Respiratory: Clear to auscultation bilaterally, Normal air movement Cardiovascular: Regular rate/rhythm, Normal S1 S2 Gastrointestinal: Normal bowel sounds, No tenderness Musculoskeletal: No tenderness Integumentary: No rashes Neurological: Normal speech, Normal tone, Normal affect Lymphatics: No axilla or inguinal lymphadenopathy Assessment And Plan - Current Problems (Diagnosis) (1) CKD stage 4 due to type 2 diabetes mellitus Current Visit: No Status: Acute Plan: will start her on fluids. Montor her creatine. If there is no improvement we can consult nephro. / She has not improved much. will continue her fluids. She is clinically stable from the other medical problems. Would like to see some improvement in her creatine before discharge. (2) Atrial fibrillation Onset Date: 11/15/15 Current Visit: No Status: Chronic Plan: she is not well controlled. Will increase her metoprolol to 50m Qualifiers: Atrial fibrillation type: paroxysmal Qualified Code(s): I48.0 - Paroxysmal atrial fibrillation (3) Pneumonia Current Visit: Yes Status: Acute Plan: Patient will be admitted. Order blood cultures. Start the patient on fluids. Will keep her here for a few days till her labs recover 2/3 wbc, creatine and glucose are improving. cultures not drawn. Will continue levaquin Qualifiers: Pneumonia type: due to unspecified organism Laterality: left Lung location: lower lobe of lung Qualified Code(s): J18.9 - Pneumonia, unspecified organism (4) DM2 (diabetes mellitus, type 2) Current Visit: No Status: Chronic Plan: she is no tresiba 32 units. Will start her on this with sliding scale coverage. Continue fluids. 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
[2021-12-16] MEDS: NA CHLORIDE 0.9% 1,000 ML IV SCH (12:47)
[2021-12-16 16:08] LABS: Magnesium 1.5
[2021-12-16] MEDS: ATORVASTATIN 80 MG TAB PO SCH (20:35)
[2021-12-16] MEDS ORDERED: Levofloxacin500mg IV 500 MG/100 ML BAG IV SCH (21:00)
--- NOTE | 2021-12-16 21:31 | P.PN ---
Date of Service: 12/16/21 Vital Signs Temp Pulse Resp BP Pulse Ox 97.8 F 73 16 145/75 H 94 12/16/21 20:00 12/16/21 20:34 12/16/21 20:00 12/16/21 20:34 12/16/21 20:00 Medications Apixaban (Apixaban 2.5 Mg Tablet) 2.5 mg PO BID [facility] Last Admin: 12/16/21 20:34 Dose: 2.5 mg Documented by: Atorvastatin Calcium (Atorvastatin 80 Mg Tab) 80 mg PO BEDTIME [facility] Last Admin: 12/16/21 20:35 Dose: 80 mg Documented by: Calcitriol (Calcitrol 0.25 Mcg Cap) 0.5 mcg PO DAILY [facility] Last Admin: 12/16/21 09:04 Dose: 0.5 mcg Documented by: Cholecalciferol (Vitamin D 5,000 Unit Cap) 5,000 unit PO DAILY [facility] Last Admin: 12/16/21 09:04 Dose: 5,000 unit Documented by: Dextrose (D50w 25 Gm/50 Ml Syringe) 12.5 gm IV PRN PRN; Protocol PRN Reason: HYPOGLYCEMIA Enteral Nutritional Formula (Nepro Shake 237 Ml Can) 237 ml PO TID [facility] Last Admin: 12/16/21 20:37 Dose: 237 ml Documented by: Glucagon (Glucagon 1 Mg/Vial) 1 mg IM 1X PRN; Protocol PRN Reason: HYPOGLYCEMIA Guaifenesin (Guaifenesin 100 Mg/5 Ml Ucup) 300 mg PO QIDP PRN PRN Reason: COUGH Last Admin: 12/15/21 22:04 Dose: 300 mg Documented by: Sodium Chloride (Ns 1000 Ml Ivbag) 1,000 mls @ 75 mls/hr IV .[id number] [facility] Last Admin: 12/16/21 12:47 Dose: 1,000 mls Documented by: Levofloxacin/Dextrose (Levaquin 500 Mg/100 Ml Ivpb) 500 mg in 100 mls @ 100 mls/hr IV Q48H [facility] Last Admin: 12/16/21 20:37 Dose: 100 mls Documented by: Insulin Human Regular (Insulin -Regular Human 50 Unit/0.5 Ml Ml) 0 unit SQ ACHS [facility]; Protocol Last Admin: 12/16/21 20:35 Dose: 6 unit Documented by: Levothyroxine Sodium (Levothyroxine Sod 0.088 Mg Tab) 0.088 mg PO [id number] [facility] Last Admin: 12/16/21 05:29 Dose: 0.088 mg Documented by: Metoprolol Succinate (Metoprolol Xl 50 Mg Tab) 50 mg PO BID [facility] Last Admin: 12/16/21 20:34 Dose: 50 mg Documented by: Assessment/ Plan: Nephrology No dyspnea No chest pain Appetite improving. No acute events overnight Vitals, medications, blood work and imaging reviewed in the chart. General: In no apparent distress, Oriented x3, Cooperative HEENT: Atraumatic Neck: Supple Respiratory: Clear to auscultation bilaterally, Normal air movement Cardiovascular: No edema, Regular rate/rhythm Gastrointestinal: Soft and benign, Non-distended Musculoskeletal: No clubbing, No contractures Integumentary: No rashes Neurological: Normal speech Laboratory Data (last 24 hrs) 12/14/21 14:41: WBC 16.10 H, Hgb 11.5 L, Hct 35.8 L, Plt Count 170 12/14/21 14:41: Sodium 124 L, Potassium 4.1, BUN 68 H, Creatinine 3.11 H, Glucose 592 H*, Total Bilirubin 1.0, AST 60 H, ALT 45, Alkaline Phosphatase 119 H, Lipase 140 Imagings Data: EXAM DESCRIPTION: RAD - Chest Single View - 12/14/2021 3:00 pm CLINICAL HISTORY: CONGESTION COMPARISON: Portable January 2021 TECHNIQUE: AP portable chest image was obtained 12/14/2021 3:00 pm . FINDINGS: Baseline fibrotic lung pattern is again noted without significant change in the severity of fibrosis. In the left lower lung field superimposed on the left heart border there is rounded masslike density. Additional focal density is present in the mid left lung field. Coronary artery stents are in place. Additionally, there is a left atrial appendage closure device in place. Heart and vasculature are normal. No measurable pleural effusion and no pneumothorax. No acute bony abnormality seen. No acute aortic findings suspected. IMPRESSION: Masslike density in the medial left lung base and left midlung field. In the acute clinical setting this is most likely areas of pneumonia. Continued close follow-up is needed to assure complete clearing. Conclusions/Impression: LEE ANN likely due to hypovolemia CKD III -Gentle IVF Hyponatremia -Continue IVF with NS Acidosis -Start oral bicarb Hypocalcemia -Continue Vitamin D HTN with CKD -Continue metoprolol DM II with CKD -RISS Severe malnutrition -Start Nepro -Give IV Albumin X1 Anemia in chronic illness -Monitor H&H
[2021-12-17] MEDS: guaiFENesin 100 MG/5 ML UCUP PO PRN (02:31)
[2021-12-17] MEDS: NA CHLORIDE 0.9% 1,000 ML IV SCH ×3 (02:31→17:19)
[2021-12-17] MEDS: LEVOTHYROXINE SOD 0.088 MG TAB PO SCH (05:08)
[2021-12-17 06:42] LABS: Absolute Lymphocytes (CBC) 0.8 K/uL (0.7-4.9); Hematocrit 31.3 % (36.0-45.0); Lymphocytes % 13.7 % (15.3-44.8); MPV 10.1 fL (7.6-11.3); RBC Red Blood Cell Count 3.47 M/uL (3.86-4.86)
[2021-12-17 07:01] LABS: Albumin 2.1 g/dL (3.4-5.0); Bilirubin Total 0.4 mg/dL (0.2-1.0); Potassium 4.3 mmol/L (3.5-5.1); Protein, Total 6.6 g/dL (6.4-8.2); Uric Acid 7.9 mg/dL (2.6-6.0)
[2021-12-17] MEDS ORDERED: ALBUMIN HUMAN 25% 100 ML IV ONE (07:18)
[2021-12-17] MEDS: METOPROLOL XL 50 MG TAB PO SCH ×2 (08:28→21:20)
[2021-12-17] MEDS: SODIUM BICARB 325 MG TAB PO SCH ×3 (08:28→17:05)
[2021-12-17] MEDS: INSULIN -REGULAR HUMAN 50 UNIT/0.5 ML ML SQ SCH ×4 (08:29→21:25)
[2021-12-17] MEDS: APIXABAN 2.5 MG TABLET PO SCH ×2 (08:29→21:19)
[2021-12-17] MEDS: CALCITROL 0.25 MCG CAP PO SCH (08:29)
[2021-12-17] MEDS: VITAMIN D 5,000 UNIT CAP PO SCH (08:29)
[2021-12-17] MEDS: NEPRO SHAKE 237 ML CAN PO SCH ×3 (08:31→21:00)
--- NOTE | 2021-12-17 09:54 | P.PN ---
Subjective Date of Service: 12/17/21 Primary Care Provider: Gareth Chief Complaint: pneumonia Subjective: No new changes Review of Systems 10-point ROS is otherwise unremarkable Respiratory: Cough Physical Examination - Vital Signs Temperature: 97.5 F Blood Pressure: 187/91 Pulse: 79 Respirations: 18 Pulse Ox (%): 95 - Physical Exam General: Alert, In no apparent distress HEENT: Atraumatic, PERRLA, EOMI Neck: Supple, JVD not distended Respiratory: Clear to auscultation bilaterally, Normal air movement Cardiovascular: Regular rate/rhythm, Normal S1 S2 Gastrointestinal: Normal bowel sounds, No tenderness Musculoskeletal: No tenderness Integumentary: No rashes Neurological: Normal speech, Normal tone, Normal affect Lymphatics: No axilla or inguinal lymphadenopathy Assessment And Plan - Current Problems (Diagnosis) (1) CKD stage 4 due to type 2 diabetes mellitus Current Visit: No Status: Acute Plan: will start her on fluids. Montor her creatine. If there is no improvement we can consult nephro. 2/5 slow improvment. Will continue fluids. would like her creatine to improve closer to her baseline of 1.7 (2) Atrial fibrillation Onset Date: 11/15/15 Current Visit: No Status: Chronic Plan: she is not well controlled. Will increase her metoprolol to 50m Qualifiers: Atrial fibrillation type: paroxysmal Qualified Code(s): I48.0 - Paroxysmal atrial fibrillation (3) Pneumonia Current Visit: Yes Status: Acute Plan: Patient will be admitted. Order blood cultures. Start the patient on fluids. Will keep her here for a few days till her labs recover 2/3 wbc, creatine and glucose are improving. cultures not drawn. Will continue levaquin Qualifiers: Pneumonia type: due to unspecified organism Laterality: left Lung location: lower lobe of lung Qualified Code(s): J18.9 - Pneumonia, unspecified organism (4) DM2 (diabetes mellitus, type 2) Current Visit: No Status: Chronic Plan: she is no tresiba 32 units. Will start her on this with sliding scale coverage. Continue fluids. Qualifiers: Diabetes mellitus intermission coordinator insulin use: with intermission coordinator use Diabetes mellitus complication detail: with nephropathy Discharge Plan: Home Plan to discharge in: 48 Hours - Code Status/Comfort Care Code Status Assessed: No Physician Review: Patient Assessed, Agree with Above Assessment and Plan Critical Care: No
[2021-12-17] MEDS ORDERED: levoFLOXacin 500 MG TAB PO ONE (11:00)
[2021-12-17] MEDS: ALBUTEROL 2.5 MG/3 ML NEB SOL NEB SCH (20:00)
[2021-12-17] MEDS: IPRATROPIUM BROM 0.5MG/2.5ML NEB SCH (20:00)
--- NOTE | 2021-12-17 20:10 | PN ---
Date of Progress Note: 12/17/2021 Subjective: Patient was seen and examined at bedside. Her daughter is at bedside. She states that she was unable to sleep well last night because of wheezing and got shortness of breath. Daughters r eporting that she uses inhalers at home, but they have not been given it to her here. She feels slig htly better, but her breathing seems to be a problem. Physical Examination: Vital Signs: At this time are showing temperature of 97, pulse rate of 74, respiratory rate of 20 an d blood pressure of 138/81. General: She appears in no acute distress. HEENT: Shows atraumatic head. Lungs: Auscultation of the lungs revealed bilateral wheezing and coarse breath sounds bilaterally di ffusely. Abdomen: Soft and nontender. Heart: Auscultation the heart reveals regular rate and rhythm. Extremities: Showed no evidence of edema. Laboratory Data: At this time are showing sodium of 133, potassium of 4.3, chloride of 105, BUN of 7 0, and creatinine of 2.7. Blood glucose is running in the 300s to 400 range. LFTs are showing sligh tly elevated AST. Albumin was 2.1. CBC showing stable hemoglobin, hematocrit, and platelet count. [place] [address] to 5000. Current Medications: Include Eliquis 2.5 mg b.i.d., atorvastatin, calcitriol, insulin sliding scale a.c. and h.s., ordered by Dr. Servin, Levaquin 1 time dose was given p.o. and she has ordered 250 mL e very 48 hours, adjusted for her renal function. She is also getting metoprolol and levothyroxine and Nepro shake. Impression: 1.Acute on chronic renal insufficiency, likely secondary to acute tubular necrosis. Currently, with slightly better renal function. Patient is getting IV fluids with normal saline at 50 cc an hour, w hich I will continue to improve the renal function. 2.Wheezing with the underlying pneumonia. Patient is currently being treated with the Levaquin. I have ordered nebulizer treatments to improve her pulmonary toileting. 3.Hypertension, seems uncontrolled at this time, but likely secondary to wheezing and shortness of b reath. Continue metoprolol for now and monitor. 4.Severe debility and weakness. We will order physical therapy for her and follow up with their rec ommendations. 5.Uncontrolled hyperglycemia. Patient has been started on insulin sliding scale, which can be lima nued and monitor closely and she is already on a diabetic diet. Plan: Overall, patient is doing okay at this time. Ordered nebulizer treatments. Continue gentle h ydration. Monitor renal function and blood pressures. Avoid further hypotension, nephrotoxins, and monitor labs closely. Continue sodium bicarbonate for metabolic acidosis. Plan was discussed with t emily patient and her daughter at bedside. All questions were answered. VV/MODL Voice ID: [id number] Report ID: [id number]
[2021-12-17] MEDS: ADVAIR IH SCH (21:00)
[2021-12-17] MEDS: ATORVASTATIN 80 MG TAB PO SCH (21:19)
[2021-12-17] MEDS: FLUTICASONE PROPIONATE 50 MCG NAS SCH (21:24)
[2021-12-18] MEDS: guaiFENesin 100 MG/5 ML UCUP PO PRN (00:17)
[2021-12-18] MEDS: IPRATROPIUM BROM 0.5MG/2.5ML NEB SCH ×4 (03:08→20:05)
[2021-12-18] MEDS: ALBUTEROL 2.5 MG/3 ML NEB SOL NEB SCH ×4 (03:08→20:05)
[2021-12-18 06:09] LABS: Absolute Lymphocytes (CBC) 1.2 K/uL (0.7-4.9); Hematocrit 28.9 % (36.0-45.0); Lymphocytes % 19.5 % (15.3-44.8); MPV 9.7 fL (7.6-11.3); RBC Red Blood Cell Count 3.23 M/uL (3.86-4.86)
[2021-12-18] MEDS: LEVOTHYROXINE SOD 0.088 MG TAB PO SCH (06:37)
[2021-12-18 06:46] LABS: Potassium 3.9 mmol/L (3.5-5.1)
[2021-12-18] MEDS: ADVAIR IH SCH ×2 (09:00→21:00)
[2021-12-18] MEDS: NEPRO SHAKE 237 ML CAN PO SCH ×3 (09:00→21:16)
[2021-12-18] MEDS: APIXABAN 2.5 MG TABLET PO SCH ×2 (09:26→21:14)
[2021-12-18] MEDS: SODIUM BICARB 325 MG TAB PO SCH ×3 (09:26→16:28)
[2021-12-18] MEDS: VITAMIN D 5,000 UNIT CAP PO SCH (09:26)
[2021-12-18] MEDS: CALCITROL 0.25 MCG CAP PO SCH (09:26)
[2021-12-18] MEDS: METOPROLOL XL 50 MG TAB PO SCH ×2 (09:26→21:11)
[2021-12-18] MEDS: INSULIN -REGULAR HUMAN 50 UNIT/0.5 ML ML SQ SCH ×4 (09:27→21:10)
[2021-12-18] MEDS: INSULIN GLARGINE 100 UNIT/ML SQ SCH (09:27)
--- NOTE | 2021-12-18 11:11 | RAD REPORT ---
EXAM DESCRIPTION: RAD - Chest Single View - 12/18/2021 6:47 am CLINICAL HISTORY: shortness of breath Chest pain. COMPARISON: Chest Single View dated 12/14/2021; Chest Single View dated 01/27/2021; Chest Single View d ated 09/03/2019; Chest Pa And Lat (2 Views) dated 05/07/2017 FINDINGS: Portable technique limits examination quality. Emphysematous changes are again seen. Areas of consolidated lung in the medial left lung base and lef t mid lung appears mildly worse since the prior study. This favors mild worsening pneumonia. The hear t is normal in size. Followup films until complete clearance is advised.
--- NOTE | 2021-12-18 11:53 | P.PN ---
Subjective Date of Service: 12/18/21 Primary Care Provider: Gareth Chief Complaint: pneumonia Subjective: No new changes Review of Systems 10-point ROS is otherwise unremarkable Physical Examination - Vital Signs Temperature: 97.5 F Blood Pressure: 143/65 Pulse: 88 Respirations: 16 Pulse Ox (%): 96 - Physical Exam General: Alert, In no apparent distress HEENT: Atraumatic, PERRLA, EOMI Neck: Supple, JVD not distended Respiratory: Crackles/rales Cardiovascular: Regular rate/rhythm, Normal S1 S2 Gastrointestinal: Normal bowel sounds, No tenderness Musculoskeletal: No tenderness Integumentary: No rashes Neurological: Normal speech, Normal tone, Normal affect Lymphatics: No axilla or inguinal lymphadenopathy Assessment And Plan - Current Problems (Diagnosis) (1) CKD stage 4 due to type 2 diabetes mellitus Current Visit: No Status: Acute Plan: will start her on fluids. Montor her creatine. If there is no improvement we can consult nephro. 2/5 slow improvment. Will continue fluids. would like her creatine to improve closer to her baseline of 1.7 (2) Atrial fibrillation Onset Date: 11/15/15 Current Visit: No Status: Chronic Plan: she is not well controlled. Will increase her metoprolol to 50m Qualifiers: Atrial fibrillation type: paroxysmal Qualified Code(s): I48.0 - Paroxysmal atrial fibrillation (3) Pneumonia Current Visit: Yes Status: Acute Plan: Patient will be admitted. Order blood cultures. Start the patient on fluids. Will keep her here for a few days till her labs recover 2/3 wbc, creatine and glucose are improving. cultures not drawn. Will continue levaquin Qualifiers: Pneumonia type: due to unspecified organism Laterality: left Lung location: lower lobe of lung Qualified Code(s): J18.9 - Pneumonia, unspecified organism (4) DM2 (diabetes mellitus, type 2) Current Visit: No Status: Chronic Plan: she is no tresiba 32 units. Will start her on this with sliding scale coverage. Continue fluids. Qualifiers: Diabetes mellitus detention insulin use: with detention use Diabetes mellitus complication detail: with nephropathy Discharge Plan: Home Plan to discharge in: 24 Hours - Code Status/Comfort Care Code Status Assessed: No Physician Review: Patient Assessed, Agree with Above Assessment and Plan Critical Care: No Time Spent Managing PTS Care (In Minutes): 20
--- NOTE | 2021-12-18 12:36 | PN ---
Date of Progress Note: 12/18/2021 Subjective: The patient was seen and examined at bedside. She is doing okay. Her breathing treatme nts have helped. Chest x-ray showing persistent left lower lobe pneumonia. Physical Examination: Vital Signs: Have been reviewed and are stable. General: She appears in no acute distress. Lungs: Auscultation of the lungs revealed crackles and coarse breath sounds at the left base. Heart: Auscultation of the heart revealed regular rate and rhythm. Laboratory Data: Showing creatinine of 2.9. CBC showing stable hemoglobin, hematocrit, and platelet count. Current Medications: Have been reviewed in detail. Impression: 1.Acute on chronic renal insufficiency secondary to ATN, currently with improving renal function. 2.Left lower lobe pneumonia. The patient is getting Levaquin 250 mg every 48 hours and she is also getting nebulizer treatments. Continue the same. 3.Hyponatremia, improving. 4.Atrial fibrillation, currently on anticoagulation with Eliquis. Plan: The patient is overall doing okay. Continue to monitor closely. Avoid further hypotension ne phrotoxins. IV fluids have been discontinued for concern for volume overload. Chest x-ray shows persistent pneumonia. Consider CT scan if she clinically does not improve. VV/MODL Voice ID: [id number] Report ID: [id number]
[2021-12-18] MEDS: ATORVASTATIN 80 MG TAB PO SCH (21:14)
[2021-12-18] MEDS: FLUTICASONE PROPIONATE 50 MCG NAS SCH (21:15)
[2021-12-19] MEDS: ALBUTEROL 2.5 MG/3 ML NEB SOL NEB SCH ×3 (01:52→14:35)
[2021-12-19] MEDS: IPRATROPIUM BROM 0.5MG/2.5ML NEB SCH ×3 (01:52→14:35)
[2021-12-19] MEDS: LEVOTHYROXINE SOD 0.088 MG TAB PO SCH (05:58)
[2021-12-19 06:28] LABS: Absolute Lymphocytes (CBC) 1.3 K/uL (0.7-4.9); Hematocrit 28.8 % (36.0-45.0); Lymphocytes % 22.5 % (15.3-44.8); MPV 9.9 fL (7.6-11.3)
[2021-12-19 06:38] LABS: Potassium 4.3 mmol/L (3.5-5.1)
[2021-12-19 07:16] LABS: Blood Morphology Comment NOT SEEN (NOT SEEN); Platelet Estimate ADEQ; White Blood Cell Scan OK (OK)
[2021-12-19] MEDS: NEPRO SHAKE 237 ML CAN PO SCH ×2 (09:00→14:00)
[2021-12-19] MEDS: ADVAIR IH SCH (09:00)
[2021-12-19] MEDS: INSULIN -REGULAR HUMAN 50 UNIT/0.5 ML ML SQ SCH ×2 (09:14→11:49)
[2021-12-19] MEDS: INSULIN GLARGINE 100 UNIT/ML SQ SCH (09:14)
[2021-12-19] MEDS: APIXABAN 2.5 MG TABLET PO SCH (09:15)
[2021-12-19] MEDS: CALCITROL 0.25 MCG CAP PO SCH (09:15)
[2021-12-19] MEDS: METOPROLOL XL 50 MG TAB PO SCH (09:15)
[2021-12-19] MEDS: SODIUM BICARB 325 MG TAB PO SCH ×2 (09:15→11:49)
[2021-12-19] MEDS: VITAMIN D 5,000 UNIT CAP PO SCH (09:16)
[2021-12-19 09:22] VITALS: TEMP 97
[2021-12-19 09:27] VITALS: O2SAT 95
--- NOTE | 2021-12-19 10:03 | P.DS ---
Admission Date: 12/14/21 Discharge Date: 12/19/21 Primary Care Provider: Gareth Disposition: ROUTINE DISCHARGE Discharge Condition: GOOD Reason for Admission: pneumonia - Problems (1) CKD stage 4 due to type 2 diabetes mellitus Current Visit: No Status: Acute (2) Atrial fibrillation Onset Date: 11/15/15 Current Visit: No Status: Chronic Qualifiers: Atrial fibrillation type: paroxysmal Qualified Code(s): I48.0 - Paroxysmal atrial fibrillation (3) Pneumonia Current Visit: Yes Status: Acute Qualifiers: Pneumonia type: due to unspecified organism Laterality: left Lung location: lower lobe of lung Qualified Code(s): J18.9 - Pneumonia, unspecified organism (4) DM2 (diabetes mellitus, type 2) Current Visit: No Status: Chronic Qualifiers: Diabetes mellitus fdc insulin use: with fdc use Diabetes mellitus complication detail: with nephropathy Brief History of Present Illness: Patient is an office patient of [facility]. History of diabetes. she has started having elevated blood sugars the last few days. Came to the office yesterday. However she did not have any symptoms of sob or fevers. We had increased her insulin. However today the patient was weak and could not walk. Brought to the ER. Found to have a pneumonia. Her creatine was elevated to 3.1 from her baseline of 1.7. Bun is 68. Her Curb 65 score is 2 or 3% 30 day mortality. her sugars were also very elevated. Hospital Course: Patient was admitted for pneumonia. She was placed on iv antibiotics and fluids. The patient had improvement from her breathing. Her kidney functions stable. Creatine improved to 2.59. Did not come back to her baseline of 1.7. Either she will improve slowly or this may be her new baseline. Have discussed not reusing her lancets. Her daughter had stated she forgets and may reuse the same lancet needle for multiple uses (infection and painful risk) She has albuterol at home. Discussed using this only as needed. Using it too often will lead to tachycardia Sob after a brief coughing fit or feeling some crepitations is not appropriate. Unfortunately her cognition is not the best and she sometimes forgets these instructions. Vital Signs/Physical Exam: Temp Pulse Resp BP Pulse Ox 97.0 F 80 18 127/77 95 12/19/21 08:00 12/19/21 09:15 12/19/21 08:00 12/19/21 09:15 12/19/21 08:00 General: Alert, In no apparent distress HEENT: Atraumatic, PERRLA, EOMI Neck: Supple, JVD not distended Respiratory: Clear to auscultation bilaterally, Normal air movement Cardiovascular: Regular rate/rhythm, Normal S1 S2 Gastrointestinal: Normal bowel sounds, No tenderness Musculoskeletal: No tenderness Integumentary: No rashes Neurological: Normal speech, Normal tone, Normal affect Lymphatics: No axilla or inguinal lymphadenopathy Laboratory Data at Discharge: WBC 5.90 K/uL (4.3-10.9) 12/19/21 06:03 Hgb 9.2 g/dL (12.0-15.0) L 12/19/21 06:03 Hct 28.8 % (36.0-45.0) L 12/19/21 06:03 Plt Count 191 K/uL (152-406) D 12/19/21 06:03 Sodium 134 mmol/L (136-145) L 12/19/21 06:03 Potassium 4.3 mmol/L (3.5-5.1) 12/19/21 06:03 BUN 63 mg/dL (7-18) H 12/19/21 06:03 Creatinine 2.59 mg/dL (0.55-1.3) H 12/19/21 06:03 Glucose 370 mg/dL (74-106) H 12/19/21 06:03 Uric Acid 7.9 mg/dL (2.6-6.0) H 12/17/21 06:16 Phosphorus 3.2 mg/dL (2.5-4.9) 12/16/21 06:00 Magnesium 1.5 12/16/21 06:00 Total Bilirubin 0.4 mg/dL (0.2-1.0) 12/17/21 06:16 AST 56 U/L (15-37) H 12/17/21 06:16 ALT 51 U/L (12-78) 12/17/21 06:16 Alkaline Phosphatase 168 U/L (45-117) H D 12/17/21 06:16 Lipase 140 U/L (73-393) 12/14/21 14:41 Home Medications: Ascorbic Acid [Vitamin C] 500 mg PO DAILY 12/14/21 Aspirin [Aspirin EC 81 MG] 81 mg PO DAILY 12/14/21 Atorvastatin Calcium 40 mg PO BEDTIME 12/14/21 Cholecalciferol (Vitamin D3) [Vitamin D 1000 Iu Tab] 1,000 unit PO DAILY 12/14/21 Clopidogrel Bisulfate [Plavix] 75 mg PO DAILY 12/14/21 Insulin Degludec [Tresiba] 28 unit SQ DAILY 12/14/21 Levothyroxine [Synthroid] 88 mcg PO DAILY 12/14/21 Memantine HCl 5 mg PO DAILY 12/14/21 Metoprolol Tartrate 25 mg PO BID 12/14/21 Montelukast [Singulair] 10 mg PO DAILY 12/14/21 Telmisartan 40 mg PO DAILY 12/14/21 Zinc 50 mg PO DAILY 12/14/21 Fluticasone [Flonase 50MCG Nasal [place]*] 1 spray IH BEDTIME 12/17/21 Fluticasone/Salmeterol [Advair Hfa 45-21 Mcg Inhaler] 1 puff IH BID 12/17/21 Insulin Degludec [Tresiba Flextouch U-100] 30 unit SQ DAILY 30 Days #30 ml 12/19/21 Levofloxacin [Levaquin] 500 mg PO DAILY 5 Days #5 tablet 12/19/21 New Medications: Levofloxacin [Levaquin] 500 mg PO DAILY 5 Days #5 tablet Insulin Degludec [Tresiba Flextouch U-100] 30 unit SQ DAILY 30 Days #30 ml Diet: ADA Activity: Ad nel Followup: Kapil Servin MD [Primary Care Provider] - 1 Week Kunal Mariee MD [ACTIVE - CAN ADMIT] - 1-2 Weeks Time spent managing pt's care (in minutes): 30
[2021-12-19] MEDS ORDERED: EPOETIN ALFA-EPBX 10,000 UNIT/ML VIAL SQ ONE (10:30)
[2021-12-19] MEDS ORDERED: levoFLOXacin 250 MG TAB PO SCH (11:00)
[2021-12-19] MEDS ORDERED: Levofloxacin 250mg IV 250 MG/50 ML BAG IV SCH (11:00)
[2021-12-19 12:21] VITALS: BP 124/58
--- NOTE | 2021-12-19 21:44 | P.PN ---
Date of Service: 12/19/21 Vital Signs Temp Pulse Resp BP Pulse Ox 97.0 F 67 18 124/58 L 95 12/19/21 12:00 12/19/21 12:00 12/19/21 12:00 12/19/21 12:00 12/19/21 12:00 Assessment/ Plan: Nephrology No dyspnea No chest pain Appetite improving. Feeling better. No acute events overnight Vitals, medications, blood work and imaging reviewed in the chart. General: In no apparent distress, Oriented x3, Cooperative HEENT: Atraumatic Neck: Supple Respiratory: Clear to auscultation bilaterally, Normal air movement Cardiovascular: +edema, Regular rate/rhythm Gastrointestinal: Soft and benign, Non-distended Musculoskeletal: No clubbing, No contractures Integumentary: No rashes Neurological: Normal speech Laboratory Data (last 24 hrs) 12/14/21 14:41: WBC 16.10 H, Hgb 11.5 L, Hct 35.8 L, Plt Count 170 12/14/21 14:41: Sodium 124 L, Potassium 4.1, BUN 68 H, Creatinine 3.11 H, Glucose 592 H*, Total Bilirubin 1.0, AST 60 H, ALT 45, Alkaline Phosphatase 119 H, Lipase 140 Imagings Data: EXAM DESCRIPTION: RAD - Chest Single View - 12/14/2021 3:00 pm CLINICAL HISTORY: CONGESTION COMPARISON: Portable January 2021 TECHNIQUE: AP portable chest image was obtained 12/14/2021 3:00 pm . FINDINGS: Baseline fibrotic lung pattern is again noted without significant change in the severity of fibrosis. In the left lower lung field superimposed on the left heart border there is rounded masslike density. Additional focal density is present in the mid left lung field. Coronary artery stents are in place. Additionally, there is a left atrial appendage closure device in place. Heart and vasculature are normal. No measurable pleural effusion and no pneumothorax. No acute bony abnormality seen. No acute aortic findings suspected. IMPRESSION: Masslike density in the medial left lung base and left midlung field. In the acute clinical setting this is most likely areas of pneumonia. Continued close follow-up is needed to assure complete clearing. Conclusions/Impression: LEE ANN likely due to hypovolemia CKD III -Hold IVF Hyponatremia -Encourage nutrition Acidosis -Continue oral bicarb Hypocalcemia -Continue Vitamin D HTN with CKD -Continue metoprolol DM II with CKD -RISS Severe malnutrition -Continue Nepro Anemia in chronic illness -Monitor H&H
== END 2021-12-19 14:59 | disposition home health service (06) | DRG 193 ==
LOC: ER 12:41 → ERHOLD 20:05 → 2ND 20:40
PROVIDERS: ADMIT Internal Medicine; ATTEND Internal Medicine
DX: J18.9 Pneumonia, unspecified organism (principal); E43 Unspecified severe protein-calorie malnutrition; N17.0 Acute kidney failure with tubular necrosis; E87.1 Hypo-osmolality and hyponatremia; E87.2 Acidosis; J44.0 Chronic obstructive pulmonary disease with (acute) lower respiratory infection; I12.9 Hypertensive chronic kidney disease with stage 1 through stage 4 chronic kidney disease, or unspecified chronic kidney disease; E11.22 Type 2 diabetes mellitus with diabetic chronic kidney disease; N18.30 Chronic kidney disease, stage 3 unspecified; E86.1 Hypovolemia; E83.51 Hypocalcemia; Z68.21 Body mass index [BMI] 21.0-21.9, adult; D64.9 Anemia, unspecified; I48.91 Unspecified atrial fibrillation; R53.81 Other malaise; E03.9 Hypothyroidism, unspecified; E11.65 Type 2 diabetes mellitus with hyperglycemia; Z79.4 Long term (current) use of insulin; Z79.01 Long term (current) use of anticoagulants; Z20.822 Contact with and (suspected) exposure to COVID-19
CPT/HCPCS: 36415; 71045; 80048; 80053; 80076; 82947; 83690; 83735; 83880; 84100; 84550; 85025; 94640; 97116; 97161; 97530; 99285; J0456; J7030; J7050; P9047; Q5106; U0003

== ENCOUNTER 2023-03-28 11:45 | Observation (INO) | payer OTHER ==
--- OUTSIDE RECORDS SUMMARY | 2023-03-28 12:19 | XMS REPORT | Continuity of Care Document ---
:1940 Author Organization [facility] t Address [address] [place] [address] [place] [address] Care Team Providers Name Role Phone Norberto Diaz MD Primary Care Physician Luda Kruse Attending Clinician Unavailable LUDA KRUSE Attending Clinician Unavailable LISS LINARES Attending Clinician Unavailable UNDEFINED Attending Clinician Unavailable Cristino Rodriguez Attending Clinician Unavailable Norberto James Attending Clinician Unavailable LISETH PAPPAS Attending Clinician Unavailable MD JONNY AREVALO Attending Clinician Unavailable Liss Linares MD Attending Clinician [phone] LISS LINARES Attending Clinician Unavailable Kapil Servin Admitting Clinician Unavailable KOBI WATKINS Admitting Clinician Unavailable Luda Kruse Admitting Clinician Unavailable JONNY AREVALO Admitting Clinician Unavailable MD JONNY AREVALO Admitting Clinician Unavailable LISS LINARES Admitting Clinician Unavailable Payers Payer Name Policy Type Policy Number Effective Date Expiration Date S ource AETNA MEDICARE [id number] 2017 HMO POS PPO 00:00:00 MEDICARE PLAN HMO [id number] 2021 OPEN ACCESS - 00:00:00 AETNA Problems Condition Condition Condition Status Onset Resolution Last Treating Co mments Source Name Details Category Date Date Treatment Clinician Date DM II DM II Disease Recurre [facility] (diabetes (diabetes nce 3-22 [facility] mellitus, mellitus, 00:00: Medi moriah type II), type II), 00 Cent er controlled controlled Hypothyroi Hypothyroi Disease Recur[facility] dis[facility] dism [facility] Center A-fib A-fib Disease Recur[facility] n[facility] COPD COPD Disease Recurre [facility] (chronic (chronic nce 3-22 [facility] obstructiv obstructiv 00:00: Nj dical e e 00 Center pulmonary pulmonary disease) disease) HTN HTN Disease Recurre [facility] (hypertens (hypertens nce 3-22 Mayra kes ion) ion) 00:00: Medical 00 Center CAD CAD Disease Active [facility] (coronary (coronary 3-22 [facility] artery artery 00:00: Medical disease) disease) 00 Center TIA TIA Disease Active [facility] (transient (transient 01-15 st ischemic ischemic 00:00: Hospit a attack) attack) 00 l 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 00:00: of 00 Medicin e Allergies, Adverse Reactions, Alerts Allergy Allergy Status Severity Reaction(s) Onset Inactive Treating Comm ents Source Name Type Date Date Clinician Sulfa DA Active IN [facility] (Sulfona 4-12 [place] [facility] 00:00: d Antibiot 00 Medical ics) Center Sulfa DA Active IN [facility] (Sulfona 4-12 [place] [facility] 00:00: d Antibiot 00 Medical ics) Center Baclofen Propensi Active Hallucinatio [facility]i ty to ns 3-06 st adverse 00:00: Hospita reaction 00 l s to drug Sulfa Propensi Active GI nausea [facility] (Sulfona ty to Intolerance 3-06 st mide adverse 00:00: Hospita Antibiot reaction 00 l ics) s to drug SULFA Allergy Active [facility] (SULFONA 2-12 MIDE 00:00: ANTIBIOT 00 ICS) Sulfa Propensi Active Feeling [facility] (Sulfona ty to 2-12 of [facility] mide adverse 00:00: malaise Medical Antibiot reaction 00 Center ics) s Sulfa Propensi Active 2017-11 [facility] Antibiot ty to 2-17 [facility] ics adverse 00:00: of reaction 00 Medicin s to e drug Social History Social Habit Start Date Stop Date Quantity Comments Source [facility] SDOH [facility] Alcohol Binge Medical José Miguel ter History SDOH [facility] Alcohol Std Drinks Medica [facility] Alcohol intake 2021-02-04 2021-02-[address] [facility] 00:00:00 00:00:00 non-drinker of Medical Ce nter alcohol (finding) History of Social 2021-01-19 2021-01-[address] function 00:00:00 00:00:00 Hospital Tobacco use and 2021-01-15 2021-01-15 Smokeless [facility] exposure 00:00:00 00:00:00 tobacco non-user Hospital History [facility] 2018-12-24 2018-12-[address] [facility] Alcohol Frequency 00:00:00 00:00:00 [facility] History of tobacco 1967-11-12 [facility] smoker [facility] use 00:00:00 [facility] Sex Assigned At [address] Mayra kes 00:00:00 00:00:00 [facility] Center Smoking Status Start Date Stop Date Source Never smoker [facility] f Medicine Ex-smoker 2018-12-24 00:00:00 2018-12-24 00:00:[address] [facility] Center Medications Ordered Filled Start Stop Current Ordering Indication Dosage Frequency Signature Comments Components Source Medication Medication Date Date Medication? Clinician (SIG) Name Name apixaban Yes 2.5mg Q.5D Take 2.[address] (Eliquis) 3-29 mg by [facility] 2.5 mg Tab 20:24: mouth 2 Medi moriah tablet 32 (two) Center times daily. dulaglutide Yes .75mg Q7D Inject [facility] (Trulicity) 3-29 0.75 mg [facility] 0.75 mg/0.5 20:24: subcutaneo Medical mL PnIj 32 usly once Center a week. insulin 0 Yes 20U QD Inject 20 [facility] detemir 3-29 Units [facility]ukes (LEVEMIR) 20:24: subcutaneo Me dical 100 32 usly Center Units/mL daily. syringe levothyroxi Yes 88ug Take [address] ne 3-29 mcg by [facility]ukes (SYNTHROID, 20:24: mouth Medic al LEVOTHROID) 32 Every Center 88 MCG morning on tablet an empty stomach. NIFEdipine Yes 60mg QD Take [address] (ADALAT CC) 3-29 by mouth Luke s 30 MG 24 hr 20:24: daily. Medi moriah tablet 32 Center sodium Yes 1{tbl} [id number] Take [address] bicarbonate 3-29 [id number] tablet by [facility] 650 MG 20:24: 3D mouth 3 Medical tablet 32 (three) Center times daily. ticagrelor Yes 90mg Q.5D Take 1 [facility] t (BRILINTA) 3-29 tablet (90 Melissa es 90 mg Tab 00:00: mg total) Med ical tablet 00 by mouth 2 Center (two) times daily. insulin Yes 2U [id number] Inject 2 [facility]i lispro 3-[id number] (HumaLOG 00:00: 3D under the Hosp constantin KwikPen 00 skin 3 l Insulin) (three) 100 unit/mL times a injection day before pen meals. SITagliptin Yes 25mg QD Take 1 Meth julianna (JANUVIA) 3-12 tablet (25 st 25 MG 00:00: mg total) Hospita tablet 00 by mouth l daily. cephalexin Yes 250mg QD Take 250 Me thodi (KEFLEX) 3-[address] 250 MG 19:51: mouth Hospita capsule 08 daily. 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 l tablet insulin 0 Yes 20U QD Inject 20 Metho di detemir 3-[address] U-100 00:00: under the Hospita (LEVEMIR) 00 skin l 100 unit/mL daily. injection Sodium 2019-0 Yes 1[drp] Apply 1 [facility] Chloride, 2-17 Drop to [facility] Hypertonic, 20:00: eye two of (GUILHERME 128) 51 times Medicin 2 % SOLN daily. e insulin 2019-0 Yes Inject [facility] detemir 2-17 into the College (LEVEMIR) 20:00: skin of 100 UNIT/ML 48 nightly. Medi ruth injection e Metoprolol 2019-0 Yes Take by Bayl or Succinate 2-17 mouth. [facility] 25 MG CS24 20:00: of 48 Medicin e metformin 2019-0 Yes 1000mg Take 1,000 [facility] (GLUCOPHAGE 2-17 mg by [facility] ) 1000 MG 20:00: mouth 2 of tablet 48 times Medicin daily e (with meals). Levothyroxi 2019-0 Yes Take by [place] sharona ne Sodium 2-17 mouth. [place] 75 MCG CAPS 20:00: of 48 Medicin e moxifloxaci 2018-11 Yes 1[drp] Place 1 B aylor n (VIGAMOX) 1-08 Drop into Col lege 0.5 % 00:00: the right of ophthalmic 00 eye four Medic in solution times e daily. Start the day before surgery metformin 2018-0 Yes 1000mg Take 1,000 [place] (GLUCOPHAGE 4-18 mg by [facility] ) 1000 MG 20:11: mouth 2 of tablet 42 times Medicin daily e (with meals). Levothyroxi 2018-0 Yes Take by [place] shar[place] ne Sodium 4-18 mouth. [place] 75 MCG CAPS 20:11: of 42 Medicin e Sodium 2018-0 Yes 1[drp] Apply 1 [place] Chloride, 4-18 Drop to College Hypertonic, 20:11: eye two of (GUILHERME 128) 42 times Medicin 2 % SOLN daily. e insulin 2018-0 Yes Inject [facility] detemir 4-18 into the College (LEVEMIR) 20:11: skin of 100 UNIT/ML 42 nightly. Medi ruth injection e Metoprolol 2018-0 Yes Take by Bayl or Succinate 4-18 mouth. [place] 25 MG CS24 20:11: of 42 Medicin e fluorometho 2019-0 Yes 1[drp] Place 1 B aylor lone (FML) 4-18 Drop into Kathleen ege 0.1 % 00:00: the right of ophthalmic 00 eye daily. Med icin suspension e fluorometho 2019-0 Yes 1[drp] Place 1 [facility] lone (FML) 4-18 Drop into Kathleen ege 0.1 % 00:00: the right of ophthalmic 00 eye daily. Med icin suspension e moxifloxaci 2019-0 Yes 1[drp] Place 1 B a[place] n (VIGAMOX) 2-04 Drop into Col lege 0.5 % 00:00: the right of ophthalmic 00 eye four Medic in solution times e daily. diflupredna 2019-0 Yes 1[drp] Place 1 B aylor te [...] Procedure Date / Time Performed Performing Clinician Sourc e [id number] 2021-02-23 00:00:00 LUIS ALFREDO hCu [facility] Plan of Care Planned Activity Planned Date Details Comments Source Future Scheduled 2023-07-[address] [facility] Test 00:00:00 (Season Ended) [code = Medic al Center INFLUENZA VACCINE (Season Ended)] Future Scheduled 2023-03-28 COVID-19 VACCINE (#1) [facility] Test 12:13:27 [code = COVID-19 VACCINE (#1)] Future Scheduled 2023-03-28 65+ [facility]UMOCOCCAL [facility] Test 12:13:27 VACCINE (1 - PCV) [code = 65+ PNEUMOCOCCAL VACCINE (1 - PCV)] Future Scheduled 2023-03-28 SHINGLES VACCINES (1 Met [facility] Test 12:13:27 of 2) [code = SHINGLES VACCINES (1 of 2)] Future Scheduled 2023-03-28 INFLUENZA VACCINE [facility] Test 12:13:27 [code = INFLUENZA VACCINE] Future Scheduled 2022-11-[address] [facility] Test 00:00:00 (12+) [code = Medical Center DEPRESSION SCREENING (12+)] Future Scheduled 2022-11-12 FALLS RISK SCREENING [facility] Test 00:00:00 [code = FALLS RISK Medical C enter SCREENING] Future Scheduled 2022-01-16 Urine screening for [facility] Test 00:00:00 protein (procedure) Medical Center [code = 495332614] Future Scheduled 2021-11-[address] [facility] Test 00:00:00 WELLNESS (YEAR 2 or Medical Center FIRST YEAR if no IPPE) [code = MEDICARE ANNUAL WELLNESS (YEAR 2 or FIRST YEAR if no IPPE)] Future Scheduled 2021-05-[address] [facility] Test 00:00:00 measurement Medical Center (procedure) [code = 26644205] Future Scheduled 1989 SHINGLES VACCINES ([address] [facility] Test 00:00:00 of 2) [code = SHINGLES Medic al Center VACCINES (1 of 2)] Future Scheduled 1958 DTAP/TDAP/TD VACCINES [facility] Test 00:00:00 (1 - Tdap) [code = Medical C enter DTAP/TDAP/TD VACCINES (1 - Tdap)] Future Scheduled [address] [facility] Test 00:00:00 Counseling and Medical Cente r Screening (12+) [code = Tobacco Cessation Counseling and Screening (12+)] Future Scheduled [address] EYE EXAM [facility] Test 00:00:00 [code = DIABETIC EYE Medical Center EXAM] Future Scheduled [address] [facility] Test 00:00:00 examination Medical Center (regime/therapy) [code = 899859938] Future Scheduled 1945 PNEUMOCOCCAL 65+ YRS [facility] Test 00:00:00 (1 - PCV) [code = Medical Ce nter PNEUMOCOCCAL 65+ YRS (1 - PCV)] Future Scheduled 1940-03-23 COVID-19 VACCINE (#1) [facility] Test 00:00:00 [code = COVID-[address] VACCINE (#1)] Future Scheduled 1940 DXA SCAN [code = DXA [facility] Test 00:00:00 SCAN] Medical Center Future Scheduled MEDICARE AWV [code = [facility] of Test MEDICARE AWV] Medicine Future Scheduled TETANUS SHOT (ADULT) [facility] of Test [code = TETANUS SHOT Medicin e (ADULT)] Future Scheduled Diabetic foot [facility] Col lege of Test examination Medicine (regime/therapy) [code = 746657332] Future Scheduled FALL SCREEN [code = [facility] of Test FALL SCREEN] Medicine Future Scheduled OSTEOPOROSIS SCREENING B [facility] of Test [code = OSTEOPOROSIS Medicin e SCREENING] Future Scheduled PNEUMOVAX >=65 [facility] of Test (PPSV23) [code = Medicine PNEUMOVAX >=65 (PPSV23)] Future Scheduled PREVNAR >= 65 (PCV13) [facility] of Test [code = PREVNAR >= 65 Medici ne (PCV13)] Future Scheduled FLU VACCINE > 6 MONTHS [facility] of Test [code = FLU VACCINE > Medici ne 6 MONTHS] Future Scheduled ANNUAL DIABETIC [facility] C [facility]lege of Test RETINOPATHY SCREENING Medici ne [code = ANNUAL DIABETIC RETINOPATHY SCREENING] Future Scheduled TETANUS SHOT (ADULT) [facility] of Test [code = TETANUS SHOT Medicin e (ADULT)] Future Scheduled Diabetic foot [facility] Col [facility]ge of Test examination Medicine (regime/therapy) [code = [id number]] Future Scheduled FALL SCREEN [code = [facility] of Test FALL SCREEN] Medicine Future Scheduled OSTEOPOROSIS SCREENING [facility] of Test [code = OSTEOPOROSIS Medicin e SCREENING] Future Scheduled PNEUMOVAX >=65 [facility] of Test (PPSV23) [code = Medicine PNEUMOVAX >=65 (PPSV23)] Future Scheduled PREVNAR >= 65 (PCV13) [facility] of Test [code = PREVNAR >= 65 Medici ne (PCV13)] Future Scheduled MEDICARE AWV (Initial) [facility] of Test [code = MEDICARE AWV Medicin e (Initial)] Future Scheduled FLU VACCINE > 6 MONTHS [facility] of Test [code = FLU VACCINE > Medici ne 6 MONTHS] Future Scheduled ANNUAL DIABETIC [facility] C [facility]lege of Test RETINOPATHY SCREENING Medici ne [code = ANNUAL DIABETIC RETINOPATHY SCREENING] Encounters Start End Encounter Admission Attending Care Care Encounter Source Date/Time Date/Time Type Type Clinicians Facility Department ID 2021-04-12 Inpatient BERTIN KruseVINODCL OUTD [id number] [facility] 11:00:00 Luda 17 [facility] 2021-01-31 Inpatient ER JOSE RAMONWILL, [facility] Cardiology [id number] [facility] 18:45:00 LUDA 2022-03-21 2022-03-21 Outpatient MICHAEL LINARES [id number] [address] [place] [address] 12:38:51 14:27:28 LISS jones of Medicin e 2021-04-09 2021-04-09 Outpatient UNDEFINED HCAPM LABO [id number] [facility] 10:39:00 10:39:00 92 [facility] 2021-04-08 2021-04-08 Outpatient BERTIN Durananthonyalexsander[facility] [id number] [facility] 12:08:00 12:08:00 Cristino 76 [facility] 2021-02-23 2021-02-25 Inpatient BERTIN JamesVINODCL INTE.02 [id number] [facility] 13:14:00 14:49:00 Norberto 80 [facility] 2021-01-15 2021-01-20 [id number] [place] 00:00:00 00:00:00 MARIA ELENAA [address] 2019-12-29 2019-12-29 Office Lin [facility] [id number] [facility] 13:53:04 14:03:04 Visit Liss AMBULATOR [id number] College Loyda Y 0.2.7.2.686 of [id number] [facility] ruth 300 e 2019-12-29 2019-12-29 [facility] MARILEE Linares [id number] 13:53:04 14:03:04 Visit Liss AMBULATOR 350.1.13.21 Loyda Y 0.2.7.2.686 [id number] 2019-07-03 2019-07-03 [facility] [id number] [place] [address] 15:11:53 15:26:53 Visit Liss AMBULATOR 350.1.13.21 College Loyda Y 0.2.7.2.686 of [id number] [facility] 300 e 2019-07-03 2019-07-03 [facility] Lin [facility] [id number] 15:11:53 15:26:53 Visit Ilss AMBULATOR 350.1.13.21 Loyda Y 0.2.7.2.686 [id number] 300 Results Test Description Test Time Test Comments Results Result Comments Source ANTINUCLEAR ANTIBODIES TITER 2021-04-13 13:12:00 Test Item Value Reference Range Interpretation Comme nts KAMILA SCREEN (test code = Negative See_Comment Neg ative <1:80 Borderline 1:80 ANASCR) Positive >1:80P erformed At: [facility] [address] [id number] Gama Rothman MD Ph:[phone] [Automated message] The sy stem which generated this result tra nsmitted reference range: (). The reference range was not used to int erpret this result as normal/abnor mal. FAX:[phone] FAX:[phone] RFLX MICR CULT IF [id number] 20:07:00 Test Item Value Reference Range Interpretation [...] code = 0-5 /HPF NONE SEEN SQU) FAX:[phone]:[phone] PROT ELECTROPHORESIS [id number] 20:07:00 Test Item Value Reference Range Interpretation Comments UR TOTAL PROTEIN 261.4 mg/dL Not Estab. Results con firmed (test code = ondilution. PROTEU) UR ALBUMIN % (test 42.0 % See_Comment [Automat ed message] code = ALBEU%) The system [employer] ich generated this result transmitted ref erence range: (). The reference range was not used to int erpret this result as normal/abnormal . UR 8.6 % See_Comment [Automated [employer]] IVTNE-5-ZUCJHHEG % The [employer] which (test code = generated this result A1GU%) transmitted ref erence range: (). The reference range was not used to int erpret this result as normal/abnormal . UR 12.4 % See_Comment [Automated [employer]] NGMOW-2-FUKAFFJT % The [employer] which (test code = generated this result [...] Observed % Not Observed code = MSPIKE%) FAX:[phone]:[phone] MICROALBUMIN/CREAT [id number] 20:07:00 Test Item Value Reference Range Interpretation Comments UR CREATININE (test 94.8 mg/dL Not Estab. code = CREATE) UR MICROALBUMIN QUAL 1439.2 ug/mL Not Estab. Results confirmed (test code = MICALBQL) ondil ution. UR MICROALB/CREAT 1518 0-29 H INFCE Resu lt Units: RATIO (test code = mg/g crea t Normal: MICALB:CRE) 0 - 29 Moderate ly increased: 30 - 300 Severely increa sed: >300Performed A t: HD [facility] [address] [place], [place] [id number] Gama Rothman MD Ph:[phone] FAX:[phone]:[phone] METABOLIC [id number] 20:07:00 Test Item Value Reference Range Interpretation [...] 20-125 H TOTAL (test code = ALKP) FAX:[phone] FAX:[phone] ELECTROPHORESIS [id number] 20:07:00 Test Item Value Reference Range Interpretation Comments TOTAL PROTEIN 8.0 g/dL 6.0-8.5 (test code = PROTE) ALBUMIN (test 3.2 g/dL 2.9-4.4 code = ALBE) TSBWX-5-CQIEPEM 0.3 g/dL 0.0-0.4 N (test code = A1G) OBSOR-3-TOANQNQ 1.3 g/dL 0.4-1.0 A N (test code [...] chain quantitation.Pe rformed At: HD [facility] [address] [place], [place] [id number] Gmaa Rothman MD Ph:[phone] rformed At: DA [facility] [address] [facility] [address] [place], [place] [id number] h CN MD Ph:[phone] [ Automated message] The sy stem which generated this result transmitted ref erence range: (). The reference range was not u sed to interpret this result as normal/abnormal . FAX:[phone] FAX:[phone] 20:07:00 Test Item Value Reference Range Interpretation Comments PHOSPHOROUS (test code = PHOS) 3.9 MG/DL 2.5-4.9 N FAX:[phone] FAX:[phone] [id number] 20:07:00 Test Item Value Reference Range Interpretation Comments URIC ACID (test code = URIC) 9.0 mg/dL 2.6-7.2 H FAX:[phone] FAX:[phone] 20:07:00 Test Item Value Reference Range Interpretation Comments MAGNESIUM (test code = MAG) 1.53 mg/dL 1.80-2.40 L FAX:[phone] FAX:[phone] PRO-BRAIN NATRIURETIC [id number] 20:07:00 Test Item Value Reference Range Interpretation Comments NT PRO-BRAIN NATRIURETIC PEPTI 4512 PG/ML 0-100 H (test code = PROBNP) FAX:[phone] FAX:[phone] A,G [id number] 20:07:00 Test Item Value Reference Range Interpretation Comments IMMUNOGLOBULIN G (test 1712 mg/dL 586-1602 A code = IGG) IMMUNOGLOBULIN M (test 52 mg/dL 26-217 Perfo rmed At: HD code = IGM) [facility] [id number] Gama Rothman MD Ph:[phone] IMMUNOGLOBULIN A (test 663 mg/dL 64-422 A code = IGA) FAX:[phone] FAX:[phone] D [id number] 20:07:00 Test Item Value Reference Range Interpretation Comments VITAMIN D 25-HYDROXY (test code = 17.4 ng/mL 30-100 L VITD25) FAX:[phone] FAX:[phone] RFLX MICR CULT IF [id number] 11:08:00 Test Item Value Reference Range Interpretation [...] code = 0-5 /HPF NONE SEEN SQU) FAX:[phone]:[phone] PROT ELECTROPHORESIS [id number] 11:08:00 Test Item Value Reference Range Interpretation Comments UR TOTAL PROTEIN (test code = PROTEU) UR ALBUMIN % (test code = ALBEU%) UR AMVMI-0-OCQLGSRZ % (test code = A1GU%) UR KTRQG-1-ABQMORFC % (test code = A2GU%) UR BETA GLOBULIN % (test code = BGU%) UR GAMMA GLOBULIN % (test code = GGU%) M SPIKE % (test code = MSPIKE%) FAX:[phone]:[phone] MICROALBUMIN/CREAT [id number] 11:08:00 Test Item Value Reference Range Interpretation Comments UR CREATININE (test 94.8 mg/dL Not Estab. code = CREATE) UR MICROALBUMIN QUAL 1439.2 ug/mL Not Estab. Results confirmed (test code = MICALBQL) ondil ution. UR MICROALB/CREAT 1518 0-29 H INFCE Resu lt Units: RATIO (test code = mg/g crea t Normal: MICALB:CRE) 0 - 29 Moderate ly increased: 30 - 300 Severely increa sed: >300Performed A t: HD [facility] [address] [place], [place] [address]Sgvmb Gama Rothman MD Ph:[phone] FAX:[phone]:[phone] METABOLIC [id number] 10:08:00 Test Item Value Reference Range Interpretation [...] 20-125 H TOTAL (test code = ALKP) FAX:[phone] FAX:[phone] ELECTROPHORESIS [id number] 10:08:00 Test Item Value Reference Range Interpretation Comments TOTAL PROTEIN (test code = PROTE) ALBUMIN (test code = ALBE) PVGCT-6-PWVAREUL (test code = A1G) XMZKL-0-QHSEDYRN (test code = A2G) BETA GLOBULIN (test code = BG) GAMMA GLOBULIN (test code = GG) M-SPIKE,SERUM (test code = MSPIKES) GLOBULIN ELECT (test code = GLOBE) ALBUMIN/GLOBULIN RATIO (test code = AGE) PROT.ELECTROPH.INTERPRETATION (test code = ELEINT) FAX:[phone] FAX:[phone] 10:08:00 Test Item Value Reference Range Interpretation Comments PHOSPHOROUS (test code = PHOS) 3.9 MG/DL 2.5-4.9 N FAX:[phone] FAX:[phone] [id number] 10:08:00 Test Item Value Reference Range Interpretation Comments URIC ACID (test code = URIC) 9.0 mg/dL 2.6-7.2 H FAX:[phone] FAX:[phone] 10:08:00 Test Item Value Reference Range Interpretation Comments MAGNESIUM (test code = MAG) 1.53 mg/dL 1.80-2.40 L FAX:[phone] FAX:[phone] PRO-BRAIN NATRIURETIC [id number] 10:08:00 Test Item Value Reference Range Interpretation Comments NT PRO-BRAIN NATRIURETIC PEPTI 4512 PG/ML 0-100 H (test code = PROBNP) FAX:[phone] FAX:[phone] A,G [id number] 10:08:00 Test Item Value Reference Range Interpretation Comments IMMUNOGLOBULIN G (test 1712 mg/dL 586-1602 A code = IGG) IMMUNOGLOBULIN M (test 52 mg/dL 26-217 Perfo rmed At: HD code = IGM) [facility] [address] [id number] Gama Rothman MD Ph:[phone] IMMUNOGLOBULIN A (test 663 mg/dL 64-422 A code = IGA) FAX:[phone] FAX:[phone] D [id number] 10:08:00 Test Item Value Reference Range Interpretation Comments VITAMIN D 25-HYDROXY (test code = 17.4 ng/mL 30-100 L VITD25) FAX:[phone] FAX:[phone] PRO-BRAIN NATRIURETIC [id number] 13:38:00 Test Item Value Reference Range Interpretation Comments NT PRO-BRAIN NATRIURETIC PEPTI 4512 PG/ML 0-100 H (test code = PROBNP) FAX:[phone] FAX:[phone] METABOLIC [id number] 13:38:00 Test Item Value Reference Range Interpretation [...] 20-125 H TOTAL (test code = ALKP) FAX:[phone] FAX:[phone] ELECTROPHORESIS [id number] 13:38:00 Test Item Value Reference Range Interpretation Comments TOTAL PROTEIN (test code = PROTE) ALBUMIN (test code = ALBE) HLEXO-1-TUMHHVVY (test code = A1G) OUJSR-4-AQKSLSQC (test code = A2G) BETA GLOBULIN (test code = BG) GAMMA GLOBULIN (test code = GG) M-SPIKE,SERUM (test code = MSPIKES) GLOBULIN ELECT (test code = GLOBE) ALBUMIN/GLOBULIN RATIO (test code = AGE) PROT.ELECTROPH.INTERPRETATION (test code = ELEINT) FAX:[phone] FAX:[phone] 13:38:00 Test Item Value Reference Range Interpretation Comments PHOSPHOROUS (test code = PHOS) 3.9 MG/DL 2.5-4.9 N FAX:[phone] FAX:[phone] [id number] 13:38:00 Test Item Value Reference Range Interpretation Comments URIC ACID (test code = URIC) 9.0 mg/dL 2.6-7.2 H FAX:[phone] FAX:[phone] 13:38:00 Test Item Value Reference Range Interpretation Comments MAGNESIUM (test code = MAG) 1.53 mg/dL 1.80-2.40 L FAX:[phone] FAX:[phone] PRO-BRAIN NATRIURETIC [id number] 13:38:00 Test Item Value Reference Range Interpretation Comments NT PRO-BRAIN NATRIURETIC PEPTI 4512 PG/ML 0-100 H (test code = PROBNP) FAX:[phone] FAX:[phone] A,G [id number] 13:38:00 Test Item Value Reference Range Interpretation Comments IMMUNOGLOBULIN G (test code = IGG) IMMUNOGLOBULIN M (test code = IGM) IMMUNOGLOBULIN A (test code = IGA) FAX:[phone] FAX:[phone] D 96-[id number] 13:38:00 Test Item Value Reference Range Interpretation Comments VITAMIN D 25-HYDROXY (test code = 17.4 ng/mL 30-100 L VITD25) FAX:[phone] FAX:[phone] Coronavirus 2019 [id number] 06:58:00 Test Item Value Reference Range Interpretation [...] Sy stem under the FDA Emergen cy Maryannhorizatoritoo n. The testing is perf ormed by personnelcosmo villagomez in the procedures for the Godinez M2000 molecular diagnostic SARS-CoV-2 assa y in vitro. HGBA1C%2021-04-08 14:21:00 Test Item Value Reference Range Interpretation Comments HGBA1C% (test code = HGBA1C%) 7.8 %A1C 4.8-6.0 H FAX:[phone] METABOLIC [id number] 13:51:00 Test Item Value Reference Range Interpretation [...] 20-125 H TOTAL (test code = ALKP) FAX:[phone] ELECTROPHORESIS [id number] 13:51:00 Test Item Value Reference Range Interpretation Comments TOTAL PROTEIN (test code = PROTE) ALBUMIN (test code = ALBE) HMSUG-1-SPXLHIZU (test code = A1G) OYOKV-9-FSCDCTHJ (test code = A2G) BETA GLOBULIN (test code = BG) GAMMA GLOBULIN (test code = GG) M-SPIKE,SERUM (test code = MSPIKES) GLOBULIN ELECT (test code = GLOBE) ALBUMIN/GLOBULIN RATIO (test code = AGE) PROT.ELECTROPH.INTERPRETATION (test code = ELEINT) FAX:[phone] 13:51:00 Test Item Value Reference Range Interpretation Comments PHOSPHOROUS (test code = PHOS) 3.9 MG/DL 2.5-4.9 N FAX:[phone] [id number] 13:51:00 Test Item Value Reference Range Interpretation Comments URIC ACID (test code = URIC) 9.0 mg/dL 2.6-7.2 H FAX:[phone] 13:51:00 Test Item Value Reference Range Interpretation Comments MAGNESIUM (test code = MAG) 1.53 mg/dL 1.80-2.40 L FAX:[phone] PRO-BRAIN NATRIURETIC [id number] 13:51:00 Test Item Value Reference Range Interpretation Comments NT PRO-BRAIN NATRIURETIC PEPTI (test code = PROBNP) FAX:[phone] [id number] 13:51:00 Test Item Value Reference Range Interpretation Comments IMMUNOGLOBULIN G (test code = IGG) FAX:[phone] [id number] 13:51:00 Test Item Value Reference Range Interpretation Comments IMMUNOGLOBULIN M (test code = IGM) FAX:[phone] [id number] 13:51:00 Test Item Value Reference Range Interpretation Comments IMMUNOGLOBULIN A (test code = IGA) FAX:[phone] D 64-[id number] 13:51:00 Test Item Value Reference Range Interpretation Comments VITAMIN D 25-HYDROXY (test code = 17.4 ng/mL 30-100 L VITD25) FAX:[phone] RFLX MICR CULT IF [id number] 13:41:00 Test Item Value Reference Range Interpretation [...] code = 0-5 /HPF NONE SEEN SQU) FAX:[phone] PROT ELECTROPHORESIS [id number] 13:41:00 Test Item Value Reference Range Interpretation Comments UR TOTAL PROTEIN (test code = PROTEU) UR ALBUMIN % (test code = ALBEU%) UR UMDYN-7-TMVBCHKP % (test code = A1GU%) UR LCSQQ-9-RTIHSFPB % (test code = A2GU%) UR BETA GLOBULIN % (test code = BGU%) UR GAMMA GLOBULIN % (test code = GGU%) M SPIKE % (test code = MSPIKE%) FAX:[phone] MICROALBUMIN/CREAT [id number] 13:41:00 Test Item Value Reference Range Interpretation Comments UR CREATININE (test code = CREATE) UR MICROALBUMIN QUAL (test code = MICALBQL) UR MICROALB/CREAT RATIO (test code mcg/mgCr = MICALB:CRE) FAX:[phone] METABOLIC [id number] 13:39:00 Test Item Value Reference Range Interpretation [...] 9.5 mg/dL 8.0-10.5 N CA) PTH INTACT [id number] 13:24:00 Test Item Value Reference Range Interpretation Comments PARATHYROID HORMONE INTACT (test 162.2 pg/mL 14.0-72.0 H code = PARAI) FAX:[phone] [id number] 13:12:00 Test Item Value Reference Range Interpretation Comments PROTHROMBIN TIME 11.9 SECONDS 9.3-12.9 N PATIENT (test code = PTP) INTERNATIONAL NORMAL 1.1 0.8-1.2 N TARGET INR BY RATIO (test code = INDICATIO N Indication INR) INR1. Prophylax is of venous thrombos is 2.0 - 3.0 (orthoped ic surgery), Proph ylaxis of venous throm bosis (other than hig h-risk surgery), Treat ment of Deep Vein Thrombosis/Pulm onary Embolism, Preve ntion of systemic emb olism - Tissue heart va lves, Acute Myocardia l Infarction (to prevent systemic emboli sm), Valvular heart disease, Atrial Fibrillation, Bileaflet mecha nical valve in aortic position.2. Mec hanical prosthetic valv es (high risk), 2. 5 - 3.5 Presence of Lup us Anticoagulant o r Antiphospholipi d Antibodies, Pre vention of systemic emb olism - Acute Myocardia l Infarction (to prevent recurrent infar ct). CBC W/AUTO [id number] 13:06:00 Test Item Value Reference Range Interpretation [...] (test code NO = MDIFF) PROTEIN ELECTROPHORESIS [id number] 13:09:00 Test Item Value Reference Range Interpretation Comments TOTAL PROTEIN 7.0 g/dL 6.0-8.5 (test code = PROTE) ALBUMIN (test 2.9 g/dL 2.9-4.4 code = ALBE) PYHZR-8-NYXGJBHN 0.4 g/dL 0.0-0.4 (test code = A1G) LOSWX-5-IADSBFKO 1.1 g/dL 0.4-1.0 A (test code = [...] pr otein is not apparent.Perfor med At: HD [facility] [address] [place], [place] [address]Icocb Kyle L MD Ph:[phone] rform ed At: DA [facility] [address] [place] [id number] h CN MD Ph:[phone] [Automated mess age] The system [employer]ansler generated this result transmit rosalia reference range : (). The reference r neyda was not used to interpret this result as normal/abnormal . IMMUNOELECTROPHORESIS [id number] 13:09:00 Test Item Value Reference Range Interpretation Comments IMMUNOGLOBULIN A (test 536 mg/dL 64-422 A code = AIDEN) IMMUNOGLOBULIN G (test 1323 mg/dL 586-1602 code = IMMG) IMMUNOGLOBULIN M (test 33 mg/dL 26-217 Perfo rmed At: DA code = IMMM) [facility] [place] [facility] [address] [place], [place] [id number] h CN MD Ph:[phone] rform ed At: [facility] [place], [place] [address]Jcfwo Gama Rothman MD Ph:[phone] IMMUNOFIXATION SERUM See_Comment A Polyclo nal increase (test code = IMMFIXS) detect ed in one or moreimmunoglobu penny. [Automated mess age] The system [employer] generated this result transmit rosalia reference range : (). The reference r neyda was not used to interpret this result as normal/abnormal . FREE KAPPA + LAMBDA LT [id number] 13:09:00 Test Item Value Reference Range Interpretation Comments FREE KAPPA LT CHAINS 127.9 mg/L 3.3-19.4 A (test code = KAPPAFR) FREE LAMBDA LT 90.1 mg/L 5.7-26.3 A CHAINS (test code = LAMBDAFR) FREE KAPPA/LAMBDA 1.42 0.26-1.65 Performed At: DA RATIO (test code = [facility] D [id number] KAPFRLAMFR) [facility] [address] [place], [place] [id number] h CN MD Ph:[phone] PROTEIN ELECTROPHORESIS [id number] 12:09:00 Test Item Value Reference Range Interpretation Comments TOTAL PROTEIN (test code = PROTE) ALBUMIN (test code = ALBE) QHHIK-1-AEZBMUEL (test code = A1G) TZRPR-9-MPYQAMTX (test code = A2G) BETA GLOBULIN (test code = BG) GAMMA GLOBULIN (test code = GG) M-SPIKE,SERUM (test code = MSPIKES) GLOBULIN ELECT (test code = GLOBE) ALBUMIN/GLOBULIN RATIO (test code = AGE) PROT.ELECTROPH.INTERPRETATION (test code = ELEINT) IMMUNOELECTROPHORESIS [id number] 12:09:00 Test Item Value Reference Range Interpretation Comments IMMUNOGLOBULIN A (test 536 mg/dL 64-422 A code = AIDEN) IMMUNOGLOBULIN G (test 1323 mg/dL 586-1602 code = IMMG) IMMUNOGLOBULIN M (test 33 mg/dL 26-217 Perfo rmed At: DA code = IMMM) [facility] [address] [facility] [address] [place], [place] [id number] h CN MD Ph:[phone] rform ed At: [facility]ml[facility] [place], [place] [address]Wis[address] Gama Rothman MD Ph:[phone] IMMUNOFIXATION SERUM See_Comment A Polyclo nal increase (test code = IMMFIXS) detect ed in one or moreimmunoglobu penny. [Automated mess age] The system [employer]ler generated this result transmit rosalia reference range : (). The reference r neyda was not used to interpret this result as normal/abnormal . FREE KAPPA + LAMBDA LT [id number] 12:09:00 Test Item Value Reference Range Interpretation Comments FREE KAPPA LT CHAINS 127.9 mg/L 3.3-19.4 A (test code = KAPPAFR) FREE LAMBDA LT 90.1 mg/L 5.7-26.3 A CHAINS (test code = LAMBDAFR) FREE KAPPA/LAMBDA 1.42 0.26-1.65 Performed At: DA RATIO (test code = [facility] D [id number] KAPFRLAMFR) [facility] [address] [place], [place] [id number] h CN MD Ph:[phone] PROTEIN ELECTROPHORESIS [id number] 17:08:00 Test Item Value Reference Range Interpretation Comments TOTAL PROTEIN (test code = PROTE) ALBUMIN (test code = ALBE) TMCIF-8-GSUKSRXR (test code = A1G) ILDKF-2-IQSTXYHK (test code = A2G) BETA GLOBULIN (test code = BG) GAMMA GLOBULIN (test code = GG) M-SPIKE,SERUM (test code = MSPIKES) GLOBULIN ELECT (test code = GLOBE) ALBUMIN/GLOBULIN RATIO (test code = AGE) PROT.ELECTROPH.INTERPRETATION (test code = ELEINT) IMMUNOELECTROPHORESIS [id number] 17:08:00 Test Item Value Reference Range Interpretation Comments IMMUNOGLOBULIN A (test code = AIDEN) IMMUNOGLOBULIN G (test code = IMMG) IMMUNOGLOBULIN M (test code = IMMM) IMMUNOFIXATION SERUM (test code = IMMFIXS) FREE KAPPA + LAMBDA LT [id number] 17:08:00 Test Item Value Reference Range Interpretation Comments FREE KAPPA LT CHAINS 127.9 mg/L 3.3-19.4 A (test code = KAPPAFR) FREE LAMBDA LT 90.1 mg/L 5.7-26.3 A CHAINS (test code = LAMBDAFR) FREE KAPPA/LAMBDA 1.42 0.26-1.65 Performed At: DA RATIO (test code = [facility] D [id number] KAPFRLAMFR) [facility] [address] [place], [place] [id number] h FINN BRITT Ph:[phone] [id number] 13:19:00 Test Item Value Reference Range Interpretation Comments GLUBED (test code = 136 MG/DL 70-110 H Performe d by certified GLUBED) caterpillar operator at [facility] [id number] 11:13:00 Test Item Value Reference Range Interpretation Comments GLUBED (test code = 64 MG/DL 70-110 L Performe d by certified GLUBED) caterpillar operator at [facility] [id number] 08:45:00 Test Item Value Reference Range Interpretation Comments GLUBED (test code = 163 MG/DL 70-110 H Performe d by certified GLUBED) caterpillar operator at [facility] CBC W/AUTO [id number] 04:56:00 Test Item Value Reference Range Interpretation [...] code NO = MDIFF) POC ARTERIAL BLOOD [id number] 02:47:00 Test Item Value Reference Range Interpretation Comments POC ARTERIAL BLOOD GAS PH (test 7.436 7.35-7.45 N code = POCPHA) POC ARTERIAL BLOOD GAS PCO2 (test 36.8 mmHg 35.0-45 N code = CMODTY4Y) POC TCO2 ARTERIAL (test code = 25.9 POCTCO2) POC ARTERIAL BLOOD GAS PO2 (test 50.8 mmHg 80-100.0 L code = RIEPK4F) POC HCO3 ARTERIAL (test code = 24.8 MMOL/L 22.0-26.0 N QJLFYI0C) POC BASE EXCESS (test code = 0.6 MMOL/L -4.0-4.0 N POCBEA) POC O2 SATURATION (test code = 86.9 % 90-100 L POCO2S) ABG DELIVERY (test code = CHRISTINA) Cannula ABG PATIENT RESP RATE (test code 20 /MIN = RRPATA) ABG SITE (test code = SITEA) R Brach JENNIFER'S TEST (test code = ALLENS) Positive BASIC METABOLIC [id number] 02:47:00 Test Item Value Reference Range Interpretation Comments SODIUM (test code = NA/ABG) MEQ/L 134-147 POTASSIUM (test code = K/ABG) MEQ/L 3.4-5.0 CHLORIDE (test code = CL/ABG) MEQ/L 100-108 CREATININE ABG (test code = CREAABG) mg/dL 0.6-1.0 POC IONIZED CALCIUM (test code = MMOL/L 1.12-1.32 POCCA) POC GLUCOSE (test code = POCGLU) MG/DL 70-110 [id number] 02:47:00 Test Item Value Reference Range Interpretation Comments HEMOGLOBIN (test code = HGB/ABG) G/DL 11.0-15.0 [id number] 02:47:00 Test Item Value Reference Range Interpretation Comments HEMATOCRIT (test code = HCT/ABG) % 33.0-45.0 POC LACTIC [id number] 02:47:00 Test Item Value Reference Range Interpretation Comments POC LACTIC ACID (test code = POCLAC) mmol/l 0.9-1.7 POC ARTERIAL BLOOD [id number] 02:47:00 Test Item Value Reference Range Interpretation Comments POC ARTERIAL BLOOD GAS PH (test 7.436 7.35-7.45 N code = POCPHA) POC ARTERIAL BLOOD GAS PCO2 (test 36.8 mmHg 35.0-45 N code = IWNOIL4P) POC TCO2 ARTERIAL (test code = 25.9 POCTCO2) POC ARTERIAL BLOOD GAS PO2 (test 50.8 mmHg 80-100.0 L code = WBNEG5N) POC HCO3 ARTERIAL (test code = 24.8 MMOL/L 22.0-26.0 N XEJFLX4R) POC BASE EXCESS (test code = 0.6 MMOL/L -4.0-4.0 N POCBEA) POC O2 SATURATION (test code = 86.9 % 90-100 L POCO2S) ABG DELIVERY (test code = CHRISTINA) Cannula ABG PATIENT RESP RATE (test code 20 /MIN = RRPATA) ABG SITE (test code = SITEA) R Brach JENNIFER'S TEST (test code = ALLENS) Positive BASIC METABOLIC [id number] 02:47:00 Test Item Value Reference Range Interpretation Comments SODIUM (test code = NA/ABG) MEQ/L 134-147 POTASSIUM (test code = K/ABG) MEQ/L 3.4-5.0 CHLORIDE (test code = CL/ABG) MEQ/L 100-108 CREATININE ABG (test code = CREAABG) mg/dL 0.6-1.0 POC IONIZED CALCIUM (test code = MMOL/L 1.12-1.32 POCCA) POC GLUCOSE (test code = POCGLU) MG/DL 70-110 [id number] 02:47:00 Test Item Value Reference Range Interpretation Comments HEMOGLOBIN (test code = HGB/ABG) G/DL 11.0-15.0 [id number] 02:47:00 Test Item Value Reference Range Interpretation Comments HEMATOCRIT (test code = HCT/ABG) % 33.0-45.0 POC LACTIC [id number] 02:47:00 Test Item Value Reference Range Interpretation Comments POC LACTIC ACID (test code = 0.5 mmol/l 0.9-1.7 L POCLAC) POC ARTERIAL BLOOD [id number] 02:47:00 Test Item Value Reference Range Interpretation Comments POC ARTERIAL BLOOD GAS PH (test 7.436 7.35-7.45 N code = POCPHA) POC ARTERIAL BLOOD GAS PCO2 (test 36.8 mmHg 35.0-45 N code = FWKOTS4Z) POC TCO2 ARTERIAL (test code = 25.9 POCTCO2) POC ARTERIAL BLOOD GAS PO2 (test 50.8 mmHg 80-100.0 L code = RAQLB1X) POC HCO3 ARTERIAL (test code = 24.8 MMOL/L 22.0-26.0 N BMUALA6N) POC BASE EXCESS (test code = 0.6 MMOL/L -4.0-4.0 N POCBEA) POC O2 SATURATION (test code = 86.9 % 90-100 L POCO2S) ABG DELIVERY (test code = CHRISTINA) Cannula ABG PATIENT RESP RATE (test code 20 /MIN = RRPATA) ABG SITE (test code = SITEA) R Brach JENNIFER'S TEST (test code = ALLENS) Positive BASIC METABOLIC [id number] 02:47:00 Test Item Value Reference Range Interpretation [...] code = POCGLU) 168 MG/DL 70-110 H [id number] 02:47:00 Test Item Value Reference Range Interpretation Comments HEMOGLOBIN (test code = HGB/ABG) G/DL 11.0-15.0 [id number] 02:47:00 Test Item Value Reference Range Interpretation Comments HEMATOCRIT (test code = HCT/ABG) % 33.0-45.0 POC LACTIC [id number] 02:47:00 Test Item Value Reference Range Interpretation Comments POC LACTIC ACID (test code = 0.5 mmol/l 0.9-1.7 L POCLAC) POC ARTERIAL BLOOD [id number] 02:47:00 Test Item Value Reference Range Interpretation Comments POC ARTERIAL BLOOD GAS PH (test 7.436 7.35-7.45 N code = POCPHA) POC ARTERIAL BLOOD GAS PCO2 (test 36.8 mmHg 35.0-45 N code = QAPLFO3W) POC TCO2 ARTERIAL (test code = 25.9 POCTCO2) POC ARTERIAL BLOOD GAS PO2 (test 50.8 mmHg 80-100.0 L code = ZCCLB5H) POC HCO3 ARTERIAL (test code = 24.8 MMOL/L 22.0-26.0 N BJOLNG2I) POC BASE EXCESS (test code = 0.6 MMOL/L -4.0-4.0 N POCBEA) POC O2 SATURATION (test code = 86.9 % 90-100 L POCO2S) ABG DELIVERY (test code = CHRISTINA) Cannula ABG PATIENT RESP RATE (test code 20 /MIN = RRPATA) ABG SITE (test code = SITEA) R Brach JENNIFER'S TEST (test code = ALLENS) Positive BASIC METABOLIC [id number] 02:47:00 Test Item Value Reference Range Interpretation [...] code = POCGLU) 168 MG/DL 70-110 H [id number] 02:47:00 Test Item Value Reference Range Interpretation Comments HEMOGLOBIN (test code = HGB/ABG) 10.1 G/DL 11.0-15.0 L [id number] 02:47:00 Test Item Value Reference Range Interpretation Comments HEMATOCRIT (test code = HCT/ABG) % 33.0-45.0 POC LACTIC [id number] 02:47:00 Test Item Value Reference Range Interpretation Comments POC LACTIC ACID (test code = 0.5 mmol/l 0.9-1.7 L POCLAC) POC ARTERIAL BLOOD [id number] 02:47:00 Test Item Value Reference Range Interpretation Comments POC ARTERIAL BLOOD GAS PH (test 7.436 7.35-7.45 N code = POCPHA) POC ARTERIAL BLOOD GAS PCO2 (test 36.8 mmHg 35.0-45 N code = PDUWOC4X) POC TCO2 ARTERIAL (test code = 25.9 POCTCO2) POC ARTERIAL BLOOD GAS PO2 (test 50.8 mmHg 80-100.0 L code = ZKZRA4F) POC HCO3 ARTERIAL (test code = 24.8 MMOL/L 22.0-26.0 N ODVPGU2B) POC BASE EXCESS (test code = 0.6 MMOL/L -4.0-4.0 N POCBEA) POC O2 SATURATION (test code = 86.9 % 90-100 L POCO2S) ABG DELIVERY (test code = CHRITSINA) Cannula ABG PATIENT RESP RATE (test code 20 /MIN = RRPATA) ABG SITE (test code = SITEA) R Brach JENNIFER'S TEST (test code = ALLENS) Positive BASIC METABOLIC [id number] 02:47:00 Test Item Value Reference Range Interpretation [...] code = POCGLU) 168 MG/DL 70-110 H [id number] 02:47:00 Test Item Value Reference Range Interpretation Comments HEMOGLOBIN (test code = HGB/ABG) 10.1 G/DL 11.0-15.0 L [id number] 02:47:00 Test Item Value Reference Range Interpretation Comments HEMATOCRIT (test code = HCT/ABG) 30 % 33.0-45.0 L POC LACTIC [id number] 02:47:00 Test Item Value Reference Range Interpretation Comments POC LACTIC ACID (test code = 0.5 mmol/l 0.9-1.7 L POCLAC) [id number] 00:37:00 Test Item Value Reference Range Interpretation Comments GLUBED (test code = 203 MG/DL 70-110 H Performe d by certified GLUBED) caterpillar operator at [facility] [id number] 17:37:00 Test Item Value Reference Range Interpretation Comments GLUBED (test code = 148 MG/DL 70-110 H Performe d by certified GLUBED) caterpillar operator at [facility] - XR CHEST 2 [id number] 14:27:00 [facility] 1940 Sex: F FAX: Norberto Schmidt [phone] [place]: St: ADM FAX: Bijal Nguyễn MD [phone]: Luda Fenton MD [phone] Name: CARLITA HERNANDEZ [facility] : 1940 Age/S: 80/F [address] [place] [address] Unit #: [id number] Loc: G.3340 [place] [address] Phys: Bijal Nguyễn MD Acct: [id number] Dis Date: Status: ADM IN PHONE #: [phone] Exam Date: 02/24/20214 FAX #: [phone] Reason: hypoxia EXAMS: CPT CODE: [id number] XR CHEST 2 V 05613 Clinical Indication: Hypoxia. Comparison:02/23/2021. Impression: Chest, single view. 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 Persistent, though improved bilateral coarse pulmonary opacities. No new pleural effusion or pneumothorax. Cardiac silhouette is of normal size. No acute osseous abnormality. SL: [id number] at 1427 Reported and signed by: Kayla Leal M.D. CC: Norberto James MD; Bijal Nguyễn MD; Luda Kruse MD Technologist: RT Pepe(R) Trnscrd Date/Time/By: 02/24/2021 (4217) : By: [email or web address] Orig Print D/T: S: 02/24/2021 (5786) PAGE 1 Signed [id number] 12:00:00 Test Item Value Reference Range Interpretation Comments GLUBED (test code = 191 MG/DL 70-110 H Performe d by certified GLUBED) caterpillar operator at [facility] CBC W/AUTO [id number] 10:43:00 Test Item Value Reference Range Interpretation [...] (test code NO = MDIFF) CBC W/AUTO [id number] 10:41:00 Test Item Value Reference Range Interpretation [...] REQUIRED (test code = MDIFF) COMPREHENSIVE METABOLIC [id number] 07:58:00 Test Item Value Reference Range Interpretation [...] 20-125 N TOTAL (test code = ALKP) [id number] 06:32:00 Test Item Value Reference Range Interpretation Comments GLUBED (test code = 193 MG/DL 70-110 H Performe d by certified GLUBED) caterpillar operator at [facility] [id number] 05:58:00 Test Item Value Reference Range Interpretation Comments GLUBED (test code = 195 MG/DL 70-110 H Performe d by certified GLUBED) caterpillar operator at [facility] [id number] 05:28:00 Test Item Value Reference Range Interpretation Comments GLUBED (test code = 191 MG/DL 70-110 H Performe d by certified GLUBED) caterpillar operator at [facility] - XR CHEST 1 [id number] 18:20:00 [facility] : 1940 Sex: F FAX: Bekah Wan [phone] [place]: St: ADM FAX: Luda Fenton MD [phone] ----- Name: CARLITA HERNANDEZ [facility] : 1940 Age/S: 80/F [address] [place] [address] Unit #: [id number] Loc: [place] [address] Phys: Bekah Wan [facility] Acct: [id number] Dis Date: Status: ADM IN PHONE #: [phone] Exam Date: 02/23/20211814 FAX #: [phone] Reason: POST WATCHMAN EXAMS: CPT CODE: [id number] XR CHEST 1 V 88093 Portable single view AP chest INDICATION: Post watchman placement Comparison: 02/22/2020 chest x-ray FINDINGS: The cardiomediastinal silhouette is normal in size. Radiopaque cagelike device over the left infrahilar region correlates with the watchman device. Moderate right and mild left lung opacities appear greatest at lung bases and likely exaggerated by extrinsic soft tissue shadows. No acute bony finding is seen. IMPRESSION: 1. Watchman device placement. 2. Interval development of mild diffuse pulmonary opacities with persistent small right pleural effusion. Findings maybe exaggerated by portable technique. Erect PA and lateral departmental radiographs can be obtained to better evaluate as clinically indicated. SL: SG-H at 1820 Reported and signed by: Dario Pelaez M.D. CC: Bekah Wan; Luda Kruse MD Technologist: Eneida Medina, RT(R)(M) Trnscrd Date/Time/By: 02/23/2021 (1819) :By: [email or web address] Orig Print D/T: S: 02/23/2021 (1822) PAGE 1 Signed [id number] 14:00:00 Test Item Value Reference Range Interpretation Comments GLUBED (test code = 190 MG/DL 70-110 H Performe d by certified GLUBED) caterpillar operator at [facility] [id number] 13:38:00 Test Item Value Reference Range Interpretation Comments ACT-ISTAT (test code 268 SEC 74-137 H Perform ed by certified = ACTI) caterpillar operator at [facility] [id number] 13:38:00 Test Item Value Reference Range Interpretation Comments ACT-ISTAT (test code 252 SEC 74-137 H Perform ed by certified = ACTI) caterpillar operator at [facility] [id number] 13:38:00 Test Item Value Reference Range Interpretation Comments ACT-ISTAT (test code 235 SEC 74-137 H Perform ed by certified = ACTI) caterpillar operator at [facility] [id number] 11:19:00 Test Item Value Reference Range Interpretation Comments GLUBED (test code = 201 MG/DL 70-110 H Performe d by certified GLUBED) caterpillar operator at [facility] Novel Coronavirus 2019 [id number] 10:15:00 Test Item Value Reference Range Interpretation [...] for the identification of SARS-CoV-2 RNA usingthe Mobile [employer] M2000 Sy stem under the FDA Emergen cy UseAuthorizatio n. The testing is perf ormed by maria fernanda villagomez in the procedures for the Godinez M2000 molecular diagnostic SARS-CoV-2 assa y in vitro. - XR CHEST 2 [id number] 15:44:00 [facility] : 1940 Sex: F FAX: Luda Fenton MD [phone] [place]: St: PRE Name: CARLITA CABA [facility] : 1940 Age/S: 80/F [address] [place] [address] Unit #: [id number] Loc: LYNNETTE Saavedra [address] Phys: Luda Kruse Acct: [id number] Dis Date: Status: PRE SDC PHONE #: [phone] Exam Date: 02/21/2021 1524 FAX#: [phone] Reason: PRE-OP WATCHMAN EXAMS: CPT CODE: [id number] XR CHEST 2 V 42637 Clinical Indication: Atrial fibrillation. Preoperative chest radiograph. Comparison: None available. Impression: Chest, 2 views. Lungs are hyperexpanded with flattening of the diaphragm. Blunting of the costophrenicangles may represent scarring or small volume pleural fluid. No pneumothorax. Cardiac silhouette is of normal size. No acute osseous abnormality. SL: [id number] at 1544 Reported and signed by: Kayla Leal M.D. CC: Luda Kruse MD Technologist: RT Jagjit(R) Trnscrd Date/Time/By: 02/21/2021 (1618) : By: [email or web address] Orig Print D/T: S: 02/21/2021 (2990) PAGE 1 Signed ReportBASIC METABOLIC PANEL 2021-02-21 14:40:00 Test Item Value Reference Range Interpretation [...] code = 9.5 mg/dL 8.0-10.5 N CA) [id number] 14:40:00 Test Item Value Reference Range Interpretation Comments PREALBUMIN (test code = PREALB) 17.5 mg/dL 16.0-40.0 N PROTHROMBIN [id number] 14:36:00 Test Item Value Reference Range Interpretation Comments PROTHROMBIN TIME 13.7 SECONDS 9.3-12.9 H PATIENT (test code = PTP) INTERNATIONAL NORMAL 1.3 0.8-1.2 H TARGE T INR BY RATIO (test code = INDICATIO N Indication INR) INR1. Prophylax is of venous thrombos is 2.0 - 3.0 (orthoped ic surgery), Proph ylaxis of venous throm bosis (other than hig h-risk surgery), Treat ment of Deep Vein Thrombosis/Pulm onary Embolism, Preve ntion of systemic emb olism - Tissue heart va lves, Acute Myocardia l Infarction (to prevent systemic emboli sm), Valvular heart disease, Atrial Fibrillation, Bileaflet mecha nical valve in aortic position.2. Mec hanical prosthetic valv es (high risk), 2. 5 - 3.5 Presence of Lup us Anticoagulant o r Antiphospholipi d Antibodies, Pre vention of systemic emb olism - Acute Myocardia l Infarction (to prevent recurrent infar ct). CBC W/AUTO [id number] 14:15:00 Test Item Value Reference Range Interpretation [...] (test code NO = MDIFF) CBC W/AUTO [id number] 14:14:00 Test Item Value Reference Range Interpretation [...] DIFF REQUIRED (test code = MDIFF) POCT-GLUCOSE [id number] 17:15:00 Test Item Value Reference Range Interpretation Comments POC-GLUCOSE METER 221 mg/dL 70-110 H : TESTED A T [facility] 6720 (BEAKER) (test code = [facility], 153) [address]: Jet Dyeing Machine Operator/Techni arnold ID = [id number] for GREYSON BANDA, TURNER POCT-GLUCOSE [id number] 12:18:00 Test Item Value Reference Range Interpretation Comments POC-GLUCOSE METER 201 mg/dL 70-110 H : TESTED A T [facility] 6720 (BEAKER) (test code = [facility], 153) 89219: Jet Dyeing Machine Operator/Techni arnold ID = [id number] for GREYSON BANDA, TURNER POCT-GLUCOSE [id number] 07:41:00 Test Item Value Reference Range Interpretation Comments POC-GLUCOSE METER 131 mg/dL 70-110 H : TESTED A T [facility] 6720 (BEAKER) (test code = [facility], 153) 99603: Jet Dyeing Machine Operator/Techni arnold ID = [id number] for GREYSON HN, TURNER BASIC METABOLIC [id number] 06:48:00 Test Item Value Reference Range Interpretation [...] S NOT APPLICABLE FOR DIALYSIS PATIEN TS. Jet Dyeing Machine Operator ID - MARK LB-TYPE NATRIURETIC FACTOR (BNP)2021-02-07 06:42:00 Test Item Value Reference Range Interpretation Comments B-TYPE NATRIURETIC PEPTIDE (BEAKER) 817 pg/mL 0-100 H (test code = 700) Jet Dyeing Machine Operator ID - DALILA MHEPATIC FUNCTION [id number] 06:41:00 Test Item Value Reference Range Interpretation [...] (test code = 22 U/L 6-55 347) Jet Dyeing Machine Operator ID - MARK LTROPONIN [id number] 06:37:00 Test Item Value Reference Range Interpretation [...] failure, acidosis, acute neurological disease, and persistent tachyarrhythmia.Jet Dyeing Machine Operator ID - DALILA [facility] (HEMOGRAM ONLY) 2021-02-07 [...] 0-0 (BEAKER) (test code = 413) POCT-GLUCOSE [id number] 21:08:00 Test Item Value Reference Range Interpretation Comments POC-GLUCOSE METER 264 mg/dL 70-110 H : TESTED A T [facility] 6720 (BEAKER) (test code = [place], 1538) [address]: Jet Dyeing Machine Operator/Techni arnold ID = [id number] for NIRAV WOMACK POCT-GLUCOSE [id number] 16:42:00 Test Item Value Reference Range Interpretation Comments POC-GLUCOSE METER 249 mg/dL 70-110 H : TESTED A T [facility] 6720 (BEAKER) (test code = [facility], 1538) 73581: Jet Dyeing Machine Operator/Techni arnold ID = [id number] for IVÁN CUELLAR POCT-GLUCOSE [id number] 13:04:00 Test Item Value Reference Range Interpretation Comments POC-GLUCOSE METER 139 mg/dL 70-110 H : TESTED A T [facility] 6720 (BEAKER) (test code = [facility], 1538) 98642: Jet Dyeing Machine Operator/Techni arnold ID = [id number] for IVÁN CUELLAR POCT-GLUCOSE [id number] 08:04:00 Test Item Value Reference Range Interpretation Comments POC-GLUCOSE METER 111 mg/dL 70-110 H : TESTED A T [facility] 6720 (BEAKER) (test code = [facility], 1538) 55722: Jet Dyeing Machine Operator/Techni arnold ID = [id number] for IVÁN CUELLAR BASIC METABOLIC [id number] 05:32:00 Test Item Value Reference Range Interpretation [...] S NOT APPLICABLE FOR DIALYSIS PATIEN TS. Jet Dyeing Machine Operator ID - DALILA EPATIC FUNCTION [id number] 05:30:00 Test Item Value Reference Range Interpretation [...] (test code = 32 U/L 6-55 347) Jet Dyeing Machine Operator ID - DALILA [facility] ([place]MOGRAM ONLY)2021-02-06 04:58:00 Test Item Value Reference [...] 0-0 (BEAKER) (test code = 413) POCT-GLUCOSE [id number] 16:58:00 Test Item Value Reference Range Interpretation Comments POC-GLUCOSE METER 213 mg/dL 70-110 H : TESTED A T [facility] 6720 (BEAKER) (test code = [facility], 1538) 89226: Jet Dyeing Machine Operator/Techni arnold ID = [id number] for CELENA BRANDT POCT-GLUCOSE [id number] 12:09:00 Test Item Value Reference Range Interpretation Comments POC-GLUCOSE METER 202 mg/dL 70-110 H : TESTED A T [facility] 6720 (BEAKER) (test code = [facility], 1538) 99943: Jet Dyeing Machine Operator/Techni arnold ID = [id number] for CELENA BRANDT POCT-GLUCOSE [id number] 07:45:00 Test Item Value Reference Range Interpretation Comments POC-GLUCOSE METER 81 mg/dL 70-110 : TESTED A T [facility] 6720 (BEAKER) (test code = [facility], 1538) 73885: Jet Dyeing Machine Operator/Techni arnold ID = [id number] for CELENA BRANDT BASIC METABOLIC [id number] 04:54:00 Test Item Value Reference Range Interpretation [...] S NOT APPLICABLE FOR DIALYSIS PATIEN TS. Jet Dyeing Machine Operator ID - [id number] 04:45:00 Test Item Value Reference Range Interpretation Comments MAGNESIUM (BEAKER) (test code = 1.8 mg/dL 1.6-2.6 627) Jet Dyeing Machine Operator ID - [id number] 04:45:00 Test Item Value Reference Range Interpretation Comments PHOSPHORUS (BEAKER) (test code = 3.6 mg/dL 2.3-4.7 604) Jet Dyeing Machine Operator ID - ADMINHEPATIC FUNCTION [id number] 04:45:00 Test Item Value Reference Range Interpretation [...] (test code = 35 U/L 6-55 347) Jet Dyeing Machine Operator ID - ADMINCBC W/PLT COUNT & AUTO [id number] 04:28:00 Test Item Value Reference Range Interpretation [...] PERCENT (BEAKER) (test code = 2801) POCT-GLUCOSE [id number] 17:20:00 Test Item Value Reference Range Interpretation Comments POC-GLUCOSE METER 194 mg/dL 70-110 H : TESTED A T [facility] 6720 (BEAKER) ([place], [address]: code = 1538) Jet Dyeing Machine Operator/Techni arnold ID = [id number] for MAXIM LANDON IN POCT-GLUCOSE [id number] 11:44:00 Test Item Value Reference Range Interpretation Comments POC-GLUCOSE METER 260 mg/dL 70-110 H : TESTED A T [facility] 6720 (BEAKER) ([place], [address]: code = 1538) Jet Dyeing Machine Operator/Techni arnold ID = [id number] for MAXIM LANDON IN POCT-GLUCOSE [id number] 07:26:00 Test Item Value Reference Range Interpretation Comments POC-GLUCOSE METER 143 mg/dL 70-110 H : TESTED A T [facility] 6720 (BEAKER) ([place], [address]: code = 1538) Jet Dyeing Machine Operator/Techni arnold ID = [id number] for BLAS ELIZABETHILDEFONSOAmadou MAXIM SHI IN COMPREHENSIVE METABOLIC [id number] 04:27:00 Test Item Value Reference Range Interpretation [...] S NOT APPLICABLE FOR DIALYSIS PATIEN TS. Jet Dyeing Machine Operator ID - [id number] 04:08:00 Test Item Value Reference Range Interpretation Comments MAGNESIUM (BEAKER) (test code = 1.7 mg/dL 1.6-2.6 627) Jet Dyeing Machine Operator ID - [id number] 04:08:00 Test Item Value Reference Range Interpretation Comments PHOSPHORUS (BEAKER) (test code = 3.7 mg/dL 2.3-4.7 604) Jet Dyeing Machine Operator ID - EDASIHEPATIC FUNCTION [id number] 04:08:00 Test Item Value Reference Range Interpretation [...] (test code = 35 U/L 6-55 347) Jet Dyeing Machine Operator ID - EDASICALCIUM, [id number] 03:55:00 Test Item Value Reference Range Interpretation Comments CALCIUM IONIZED (BEAKER) (test 1.09 mmol/L 1.12-1.27 L code = 698) PH, BLOOD (BEAKER) (test code = 7.48 1810) CBC W/PLT COUNT & AUTO [id number] 03:50:00 Test Item Value Reference Range Interpretation [...] PERCENT (BEAKER) (test code = 2801) POCT-GLUCOSE [id number] 22:44:00 Test Item Value Reference Range Interpretation Comments POC-GLUCOSE METER 203 mg/dL 70-110 H : Notified RN/MD: (GABRIELA) (test code = TESTED AT [facility] 6720 4142) [facility], [address]: Jet Dyeing Machine Operator/Techni arnold ID = [id number] for SUSANNE RALPH POCT-GLUCOSE [id number] 16:57:00 Test Item Value Reference Range Interpretation Comments POC-GLUCOSE METER 213 mg/dL 70-110 H : TESTED A T [facility] 6720 (GABRIELA) (test code = [place], 1538) [address]: Jet Dyeing Machine Operator/Techni arnold ID = [id number] for ALKA PIERCE U/S, ABDOMINAL, [id number] 16:34:00Abdomen limited area? Add comment if clarification is needed.->Right upper quadrantReason for exam:->elevated [facility] : 1940 Sex: FFINAL REPORT U/S, ABDOMINAL, LIMITED CLINICAL HISTORY: elevated LFT COMPARISON: Renal ultrasound same day TECHNIQUE: Real time grayscale and color Doppler images of the right upper quadrant abdominal organs were obtained using a curved transducer. FINDINGS: Pancreas: Partially visualized and unremarkable. Liver: Normal in size and homogeneous in echogenicity. Focal liver lesions: Pu nctate echogenic foci along the portal triads, likely [...] Signed: Minnie Tamez Verified Date/Time: 02/03/2021 16:34:01 U/S, RENAL, [id number] 12:58:00Reason for exam:->akiShould this be performed at the bedside?->Yes [facility] 1940 Sex: FFINAL REPORT U/S, [...] seen with medical renal disease. IMPRESSION: Mildly hyperechoickidneys, suggestive of mild renal parenchymal disease. No hydronephrosis. Signed: Minnie Tamez MDReport Verified Date/Time: 02/03/2021 12:58:21 TITIS C [id number] 11:48:00 Test Item Value Reference Range Interpretation Comments HEPATITIS C ANTIBODY (BEAKER) Nonreactive Nonreactive (test code = 367) Jet Dyeing Machine Operator ID - JING FHEPATITIS B [id number] 11:48:00 Test Item Value Reference Range Interpretation Comments HEPATITIS B CORE TOTAL ANTIBODY Nonreactive Nonreactive (BEAKER) (test code = 497) HEPATITIS B SURFACE ANTIBODY < mIU/mL <8.0 (BEAKER) (test code = 647) HEPATITIS B SURFACE ANTIGEN (2) Nonreactive Nonreactive (BEAKER) (test code = 2585) Jet Dyeing Machine Operator ID - JING TAYLOR, CHEST, 1 VIEW, NON [id number] 11:33:00Reason for exam:->sobShould this be performed at the bedside?->Yes [facility] : 1940 Sex: FFINAL REPORT CLINICAL HISTORY: sob TECHNIQUE: 1 view of the chest COMPARISON: 01/31/2021 IMPRESSION: There are no focal infiltrates or pleural effusions. The cardiomediastinal silhouette is within normal limits for size. The visualized bones are intact. Signed: Davion Rivera MDReportVerified Date/Time: 02/03/2021 11:33:20 Reading Location: [facility] Radiology Reading Room POCT- GLUCOSE [id number] 11:21:00 Test Item Value Reference Range Interpretation Comments POC-GLUCOSE METER 188 mg/dL 70-110 H : Notified RN/: (GABRIELA) (test code = TESTED AT [facility] 6720 1538) [facility], [address]: Jet Dyeing Machine Operator/Techni arnold ID = [id number] for ST RICO MERCADO POCT-GLUCOSE [id number] 07:26:00 Test Item Value Reference Range Interpretation Comments POC-GLUCOSE METER 122 mg/dL 70-110 H : Notified RN/: (GABRIELA) (test code = TESTED AT [facility] 2861 5608) [place], [address]: Jet Dyeing Machine Operator/Techni arnold ID = [id number] for ST RICO MERCADO COMPREHENSIVE METABOLIC [id number] 05:22:00 Test Item Value Reference Range Interpretation [...] S NOT APPLICABLE FOR DIALYSIS PATIEN TS. Jet Dyeing Machine Operator ID - DALILA MB-TYPE NATRIURETIC FACTOR (BNP)2021-02-03 05:05:00 Test Item Value Reference Range Interpretation Comments B-TYPE NATRIURETIC PEPTIDE 2229 pg/mL 0-100 H (BEAKER) (test code = 700) Jet Dyeing Machine Operator ID - DALILA [id number] 05:02:00 Test Item Value Reference Range Interpretation Comments MAGNESIUM (BEAKER) (test code = 1.6 mg/dL 1.6-2.6 627) Jet Dyeing Machine Operator ID - DALILA [id number] 05:02:00 Test Item Value Reference Range Interpretation Comments PHOSPHORUS (BEAKER) (test code = 4.1 mg/dL 2.3-4.7 604) Jet Dyeing Machine Operator ID - DALILA MCALCIUM, [id number] 04:39:00 Test Item Value Reference Range Interpretation Comments CALCIUM IONIZED (BEAKER) (test 1.14 mmol/L 1.12-1.27 code = 698) PH, BLOOD (BEAKER) (test code = 7.48 1810) CBC W/PLT COUNT & AUTO [id number] 04:38:00 Test Item Value Reference Range Interpretation [...] PERCENT (BEAKER) (test code = 2801) POCT-GLUCOSE [id number] 21:22:00 Test Item Value Reference Range Interpretation Comments POC-GLUCOSE METER 165 mg/dL 70-110 H : TESTED A T [facility] 6720 (BEAKER) (test code = [facility], 1538) [address]: Jet Dyeing Machine Operator/Techni arnold ID = [id number] for PH ILIP, JA URINALYSIS W/ [id number] 21:08:00 Test Item Value Reference Range Interpretation [...] 516) SOURCE(BEAKER) (test code = Urine, Voided 2470) Jet Dyeing Machine Operator ID - [auto]Jet Dyeing Machine Operator ID - techCREATININE, RANDOM [id number] 21:08:00 Test Item Value Reference Range Interpretation Comments CREATININE URINE (BEAKER) (test 38.0 mg/dL code = 375) Reference Range: No NormalsOperator ID - BSPROTEIN, RANDOM [id number] 21:08:00 Test Item Value Reference Range Interpretation Comments PROTEIN, URINE (BEAKER) (test code = 78 mg/dL 0-14 H 1569) Jet Dyeing Machine Operator ID - BSPOCT-GLUCOSE [id number] 17:47:00 Test Item Value Reference Range Interpretation Comments POC-GLUCOSE METER 128 mg/dL 70-110 H : TESTED A T [facility] 6720 (BEAKER) (test code = [facility], 153) [address]: Jet Dyeing Machine Operator/Techni arnold ID = [id number] for ZAPATA NNY, ALKA [id number] 13:18:00 Test Item Value Reference Range Interpretation Comments ACTIVATED CLOTTING TIME 263 sec : 74 -137 seconds, (BEAKER) (test code = Baseli ne: TESTED AT 441) [facility] [address] [facility], [address]: Jet Dyeing Machine Operator/Techni arnold ID = [id number] for At Sary harden [id number] 12:55:00 Test Item Value Reference Range Interpretation Comments ACTIVATED CLOTTING TIME 285 sec : 74 -137 seconds, (BEAKER) (test code = Baseli ne: TESTED AT 441) [facility] [address] [facility], 770 30: Jet Dyeing Machine Operator/Techni arnold ID = [id number] for CO NDE, LEBRON POCT-GLUCOSE [id number] 12:08:00 Test Item Value Reference Range Interpretation Comments POC-GLUCOSE METER 151 mg/dL 70-110 H : TESTED A T [facility] 6720 (BEAKER) (test code = [facility], 1538) [address]: Jet Dyeing Machine Operator/Techni arnold ID = [id number] for ZAPATA NNY, ALKA POCT-GLUCOSE [id number] 08:00:00 Test Item Value Reference Range Interpretation Comments POC-GLUCOSE METER 209 mg/dL 70-110 H : [facility] ([facility]ER[facility] (test code = [place], 1538) [address]: Jet Dyeing Machine Operator/Techni arnold ID = [id number] for ALKA PIERCE TROPONIN [id number] 07:08:00 Test Item Value Reference Range Interpretation [...] failure, acidosis, acute neurological disease, and persistent tachyarrhythmia.Jet Dyeing Machine Operator ID - PIAYA LBASIC METABOLIC [id number] 06:41:00 Test Item Value Reference Range Interpretation [...] S NOT APPLICABLE FOR DIALYSIS PATIEN TS. Jet Dyeing Machine Operator ID - PIAYA [id number] 06:29:00 Test Item Value Reference Range Interpretation [...] 0-0 (BEAKER) (test code = 413) TROPONIN [id number] 23:15:00 Test Item Value Reference Range Interpretation [...] failure, acidosis, acute neurological disease, and persistent tachyarrhythmia.Jet Dyeing Machine Operator ID - BSPOCT-GLUCOSE METER 2021-02-01 20:47:00 Test Item Value Reference Range Interpretation Comments POC-GLUCOSE METER 304 mg/dL 70-110 H : TESTED A T [facility] 6720 (BEAKER) (test code = [facility], 1538) [address]: Jet Dyeing Machine Operator/Techni arnold ID = [id number] for JA CAAL POCT-GLUCOSE [id number] 17:53:00 Test Item Value Reference Range Interpretation Comments POC-GLUCOSE METER 182 mg/dL 70-110 H : TESTED A T [facility] 6720 (BEAKER) (test code = [facility], 1538) [address]: Jet Dyeing Machine Operator/Techni arnold ID = [id number] for KIM PULIDO [id number] 16:54:00 Test Item Value Reference Range Interpretation Comments ACTIVATED CLOTTING TIME 323 sec : 74 -137 seconds, (BEAKER) (test code = Baseli ne: TESTED AT 441) [address], [facility] 30: Jet Dyeing Machine Operator/Techni arnold ID = [id number] for SA LOTUS, JACOBO [id number] 16:23:00 Test Item Value Reference Range Interpretation Comments ACTIVATED CLOTTING TIME 285 sec : 74 -137 seconds, (BEAKER) (test code = Baseli ne: TESTED AT 441) [address], [facility] 30: Jet Dyeing Machine Operator/Techni arnold ID = [id number] for JOAQUIN PARKER [id number] 15:59:00 Test Item Value Reference Range Interpretation Comments ACTIVATED CLOTTING TIME 224 sec : 74 -137 seconds, (BEAKER) (test code = Baseli ne: TESTED AT 441) [address], [facility] 30: Jet Dyeing Machine Operator/Techni arnold ID = [id number] for PASHA PARKERA TROPONIN [id number] 13:53:00 Test Item Value Reference Range Interpretation Comments TROPONIN I (BEAKER) (test code = 0.65 ng/mL 0.00-0.03 [facility]) Troponin I (TnI) levels must be interpreted [...] failure, acidosis, acute neurological disease, and persistent tachyarrhythmia.Jet Dyeing Machine Operator ID - JING [id number] 13:30:00 Test Item Value Reference Range Interpretation Comments PARTIAL THROMBOPLASTIN TIME 24.9 seconds 22.5-36.0 (BEAKER) (test code = 760) POCT-GLUCOSE [id number] 12:15:00 Test Item Value Reference Range Interpretation Comments POC-GLUCOSE METER 176 mg/dL 70-110 H : TESTED A T [facility] 6720 (BEAKER) (test code = [place], 1538) [address]: Jet Dyeing Machine Operator/Techni arnold ID = [id number] for Jose Luis Edwards HEMOGLOBIN [id number] 10:18:00 Test Item Value Reference Range Interpretation Comments HEMOGLOBIN A1C (BEAKER) (test code = 10.9 % 4.3-6.1 H 368) BASIC METABOLIC [id number] 10:09:00 Test Item Value Reference Range Interpretation [...] S NOT APPLICABLE FOR DIALYSIS PATIEN TS. Jet Dyeing Machine Operator ID - JING FLIPID [id number] 10:08:00 Test Item Value Reference Range Interpretation Comments TRIGLYCERIDES (BEAKER) (test code = 65 mg/dL 540) CHOLESTEROL (BEAKER) (test code = 104 mg/dL 631) HDL CHOLESTEROL (BEAKER) (test code 34 mg/dL = 976) LDL CHOLESTEROL CALCULATED (GABRIELA) 57 mg/dL (test code = 633) Triglyceride Reference Range: Low Risk <150 Borderline 150-199 High Risk 200- 499 Very High Risk >=500Cholesterol Reference Range: Low Risk <200 Borderline 200-239 High Risk >240HDL Cholesterol Reference Range: Low Risk >=60 High Risk <40LDL Cholesterol Reference Range: Optimal <100 Near Optimal 100-129 Borderline 130-159 High 160-189 Very High >=190 Jet Dyeing Machine Operator ID - JING FPOCT-GLUCOSE [id number] 08:09:00 Test Item Value Reference Range Interpretation Comments POC-GLUCOSE METER 156 mg/dL 70-110 H : TESTED A T [facility] 6720 (GABRIELA) (test code = [place], 1538) [address]: Jet Dyeing Machine Operator/Techni arnold ID = [id number] for Jose Luis Edwards TROPONIN [id number] 07:21:00 Test Item Value Reference Range Interpretation Comments TROPONIN I (GABRIELA) (test code = 0.85 ng/mL 0.00-0.03 HH 397) Troponin I (TnI) [...] failure, acidosis, acute neurological disease, and persistent tachyarrhythmia.Jet Dyeing Machine Operator ID Gayle CONNER MB-TYPE NATRIURETIC FACTOR (BNP)2021-02-01 07:17:00 Test Item Value Reference Range Interpretation Comments B-TYPE NATRIURETIC PEPTIDE (GABRIELA) 204 pg/mL 0-100 H (test code = 700) Jet Dyeing Machine Operator ID - DALILA [id number] 06:55:00 Test Item Value Reference Range Interpretation [...] 0-0 (BEAKER) (test code = 413) POCT-GLUCOSE [id number] 23:35:00 Test Item Value Reference Range Interpretation Comments POC-GLUCOSE METER 232 mg/dL 70-110 H : [facility] (BEAKER[facility] (test code = SHAJI He [facility], 1538) [address]: Jet Dyeing Machine Operator/Techni arnold ID = [id number] for Lashay Fontana TROPONIN [id number] 23:35:00 Test Item Value Reference Range Interpretation [...] failure, acidosis, acute neurological disease, and persistent tachyarrhythmia.Jet Dyeing Machine Operator ID - DBBASIC METABOLIC PANEL 2021-01-31 23:32:00 [...] S NOT APPLICABLE FOR DIALYSIS PATIEN TS. Jet Dyeing Machine Operator ID - [id number] 22:44:00 Test Item Value Reference Range Interpretation [...] = 413) RAD, CHEST, 1 VIEW, NON [id number] 21:59:00Reason for exam:->shortness of breathShould this be performed at the bedside?->Yes [facility] 1940 Sex: FFINAL REPORT Chest, 1 view. History: Shortness of breath. Comparison: None available. Findings: The cardiomediastinal silhouette and pulmonary vasculature are within normal limits for a portable exam. Calcified granuloma in the right lung base. Nodular opacities in the right upper lobe measuring up to 7 mm may be inflammatory in etiology versus confluence of structures however recommend cross-sectional imaging on a nonemergent basis to exclude underlying pulmonary nodule. No lobarconsolidation or pleural effusion. No pneumothorax. No acute osseous abnormality. Signed: Jahaira Martinez Verified Date/Time: 01/31/2021 21:59:25 CZ-VwZ-4 (COVID-19) RNA [Presence] in Respiratory specimen by SHERI with probe [id number] 23:06:42 Test Item Value Reference Range Interpretation Comments SARS-CoV-2 (COVID-19) RNA Not detected Not-Detected [Presence] in Respiratory specimen by SHERI with probe detection (test code = 73787-9) [place] BENJAMIN WESTPOCT-GLUCOSE [id number] 08:39:00 Test Item Value Reference Range Interpretation Comments POC-GLUCOSE METER 113 mg/dL 70-110 H TESTED AT [facility] 7200 (GABRIELA) (test code [place] = 1538) [place] [address] Notes Date/Time Note Provider Source 2021-03-16 12:47:00-00:00 [id number] [place] [address] PATIENT NAME: CARLITA HERNANDEZ ADMIT DATE: 02/23/21 ACCOUNT NO: [id number] ROOM NO: [facility] AGE: 80 REPORT TYPE: eTRANSESOPHAGEAL ECHO REPORT SEX: F ADMITTING PHYSICIAN:Luda Kruse MD ATTENDING PHYSICIAN:Norberto James MD *[place] [address] Transesophageal Echocardiogram for Chandni Patient: Carlita Hernandez Study Date: 02/23/2021 BP: Location: [facility] URN: [id number] : 1940 Age: 80 Height: / Gender: F Weight: / BMI/BSA: / *Ordering Physician: * Luda Kruse *Interpreting Physician: * Aixa Woodall MD Study data: Transesophageal Echocardiogram for Helio ramachandran. Consent: The risks, benefits, and alternatives to the procedu re and sedation were explained to the patient and informed consent wa s obtained. Procedure: Initial setup: The patient was brought to the [facility] in the fasting state.Intravenous access was obtained. Surface E CG leads, blood pressure measurements, and pulse oximetric signals were m onitored. Sedation. Deep sedation was administered by anesthesiology mckenna valenzuela. Transesophageal echocardiography was performed. A transesophagea l probe was inserted by the anesthesiologist. Images were obtained using a [employer] cardiac ultrasound machine. Study completion: The patient tolerated the procedure well. There were no complications. Findings Conclusions Summary: 1. Study data: Transesophageal Echocardiogram noa Tariq. The patient PATIENT NAME: CARLITA HERNANDEZ ACCOUNT #: G [id number] tolerated the procedure well. 2. Procedure narrative: Transesophageal echocard iography was performed. A transesophageal probe was inserted by the damián sthesiologist. Images were obtained using a [employer] cardiac ultrasound mac carlos. Prepared and electronically signed by Aixa Woodall MD 03/16/2021 12:47 Electronically Signed by Luda Kruse MD on at 1248 PATIENT NAME: CARLITA HERNANDEZ ACCOUNT #: G [id number] 2021-02-25 10:29:00-00:00 [facility] ([facility]) Discharge Summary REPORT#:[id number] REPORT STATUS: Signed DATE:02/25/21 TIME: 1029 PATIENT: CARLITA HERNANDEZ UNIT #: [id number] ROOM/BED: [place] [id number] : 39 AGE: 80 SEX: F ATTEND: Shayla James MD ADM AUTHOR: Bijal Nguyễn MD * ALL edits or amendments must be made on the el [employer]/computer document * General Information Discharge date: 02/25/21 Discharge diagnosis: Chronic atrial fibrillation, s/p watchman device placement Acute on chronic anemia. Chronic kidney disease Abnormal chest x-ray Hyperlipidemia CKD stage III Anemia of chronic disease Diabetes mellitus type 1 COPD not in exacerbation Hx CAD Hospital course: Chronic atrial fibrillation, s/p watchman device placement Acute on chronic anemia. Chronic kidney disease Abnormal chest x-ray Hyperlipidemia CKD stage III Anemia of chronic disease Diabetes mellitus type 1 COPD not in exacerbation Hx CAD PLAN - Resume home medications - Heart healthy diet - Postoperative care - Pain control as needed - Incentive spirometry - Follow labs, electrolytes - Dual antiplatelet therapy - DVT prophylaxis/anticoagulation Eliquis - Follow renal function trend - Sliding scale insulin while inpatient, follow blood sugar trend and adjust scale as needed - Follow-up with any increase in oxygen demand or wheezing - bronchodilator as needed - Diuresis - Follow fluid volume status, intake and output, daily weight - Patient has not taken lasix for several days - CXR to assess for pulmonary edema - Supplemental oxygen as needed - Telemetry monitoring, assess for ST changes, a rrhythmias, rhythm changes - Further interventions per clinical course - Plan discussed with patient 02/24/2021. Patient on oxygen 2 L we will will wean off oxyg en. We will do chest x-ray as well. Chest x-ray findings yesterday no signs of infec tion at this time. No leukocytosis Doubt infectious. ? fluid congestion. Repeat chest x-ray be done today. Patient noted to have a hemoglobin of 6.7 this m orning. There is a drop from preprocedure levels. No active bleeding. Will get hematology on board as well Patient currently on antiplatelets and anticoagu lants. Need to closely watch. Repeat hemoglobin later t carina. Will transfuse 2 units of packed red blood cells given the patient's cardiac history. Renal function remains stable creatinine is 1.9. Note appreciated patient previously was 1.8 Spoke with the patient's jonny case over the phone updated regarding plan of care agreeable with plan of care 02/25/2021. Patient with anemia stable hemoglobin is better. No active bleeding Seen by hematology oncology as well likely anemi a of chronic disease Seen by cardiology carlos for discharge And is to discharge holding Plavix. To be on aspirin and Eliquis on discharge Spoke to patient's daughter over the phone updated regarding plan of care she is agreeable. Med Rec Med Rec Discharge meds: Stop taking the following medications: CLOPIDOGREL (PLAVIX) 75 MG TAB 75 MILLIGRAM ORAL DAILY. Continue taking these medications: ATORVASTATIN (LIPITOR) 80 MG TAB 40 MILLIGRAM ORAL BEDTIME. APIXABAN (ELIQUIS) 2.5 MG TAB 2.5 MILLIGRAM ORAL TWICE DAILY. FUROSEMIDE (LASIX) 80 MG TAB 80 MILLIGRAM ORAL EVERY FORTY EIGHT HOURS. INSULIN DETEMIR (LEVEMIR) 100 UNIT/ML VIAL UNITS SUBCUTANEOUS DAILY. NIFEdipine XL (PROCARDIA XL) 30 MG TAB.SA 30 MILLIGRAM ORAL DAILY. SODIUM BICARBONATE (SODIUM BICARBONATE) 650 MG T AB 650 MILLIGRAM ORAL TWICE DAILY. DULAGLUTIDE (TRULICITY) 0.75 MG/0.5 ML PEN.INJCT R 0.75 MILLIGRAM SUBCUTANEOUS EVERY 7 DAYS. ALBUTEROL (VENTOLIN HFA 90 MCG/ACT 18 GM) 90 MCG INHALER 2 PUFF INHALATION RT - EVERY 4 HOURS NEEDED. as needed for COPD ASPIRIN EC (ECOTRIN) 81 MG TAB.EC 81 MILLIGRAM ORAL DAILY. Start taking the following new medications: METOPROLOL TARTRATE (LOPRESSOR) 25 MG TAB 25 MILLIGRAM ORAL EVERY 12 HOURS. Days = 30 Qty = 60 No Refills Objective VS/I O Last Documented: Result Date Time Pulse Ox 97 02/25 1105 B/P 139/68 02/25 1105 B/P Mean 0.0 02/25 1105 O2 Delivery Room air 02/25 1105 Temp 36.9 02/25 1105 Pulse 96 02/25 1105 Resp 15 02/25 1105 O2 Flow Rate 2 02/25 0251 24 hour I O ending at 0700: 02/25 0700 02/24 1900 Intake Total 1040 Output Total 1000 Balance 40 Intake, IV 100 Intake, Oral 240 Intake, 700 Packed Cells Number 2 1 Incontinent Voids Number Voids 2 Output, Urine 1000 PATIENT WEIGHT: Weight (lb): 120 Weight (oz): 4.02 Weight (kg): 54.545 General appearance: alert, awake, oriented Neck: full range of motion Cardiovascular: normal capillary refill, regular rate rhythm, normal heart sounds Respiratory: clear to auscultation, no distress, no tenderness GI: soft, non-tender, no guarding, no rebound 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, oriented X 3 Discharge Instructions PCP PCP: PCP: Undefined Provider )( Discharge to: Home/Self Care Discharge Instructions Additional Discharge Routines: Attending Follow- Up )( Diet: Resume Home Diet/Feeds )( Activity: As Tolerated Discharge management: greater than 30 mins Follow-up Appointments Attending Physician: Attending Physician: Norberto James MD Special instructions: f/u cardiology f/u Hematology check CBC within 1 week Electronically Signed by Bijal Nguyễn MD on 0 02/25/21 at 1308 RPT #:[id number] END OF REPORT 2021-02-25 10:28:00-00:00 [facility] Hospitalist Progress Note REPORT#:[id number] REPORT STATUS: Signed DATE:02/25/21 TIME: 1028 PATIENT: CARLITA HERNANDEZ UNIT #: [id number] ROOM/BED: [place] [id number] : 39 AGE: 80 SEX: F ATTEND: Shayla James MD ADM AUTHOR: Bijal Nguyễn MD * ALL edits or amendments must be made on the [employer]/computer document * Subjective Chief Complaint: f/u s/p watchman HPI: Patient doing well. Noted patient not hypoxic no w. Patient doing well blood pressure stable not hyp oxic Jenna with cardiology okay to discharge. Discusse d with hematology as well. Hemoglobin posttransfusion is stable no active b leeding. Review of Systems Additional notes: All 14 systems were reviewed positive and negative respiratory system negative. All systems rev neg: except as marked Objective General VS/I O: Vital Signs: Date Time Temp Pulse Resp B/P B/P Pulse O2 O2 F low FiO2 Mean Ox Delivery Rate 02/25 1105 36.9 96 15 139/68 0.0 97 Room air 02/25 0714 36.6 93 15 171/79 0.0 98 Nasal cannula 02/25 0422 36.4 96 18 153/72 98.9 95 04/16 0251 97 Nasal 2 cannula 02/24 2301 98 155/76 102.2 93 02/24 2245 Nasal 2 cannula 02/24 2224 36.6 93 18 138/71 93.2 93 02/24 2049 36.7 90 18 124/71 88.4 97 02/24 2007 36.6 91 20 124/68 86.6 96 02/24 1831 36.4 99 16 126/61 90 02/24 1802 36.7 99 16 139/65 94 02/24 1654 36.4 97 16 146/70 94 02/24 1610 36.5 99 14 141/65 96 02/24 1540 36.7 97 16 123/59 0.0 97 Nasal cannula 02/24 1531 36.5 96 17 123/59 92 02/24 1526 36.6 96 18 129/61 93 02/24 1521 36.6 95 16 124/60 94 02/24 1516 36.5 96 17 140/61 95 24 hour I O ending at 0700: 02/25 0700 02/24 1900 Intake Total 1040 Output Total 1000 Balance 40 Intake, IV 100 Intake, Oral 240 Intake, 700 Packed Cells Number 2 1 Incontinent Voids Number Voids 2 Output, Urine 1000 PATIENT WEIGHT: Weight (lb): 120 Weight (oz): 4.02 Weight (kg): 54.545 Medications: Active Meds + DC'd Last 24 Hrs Epoetin Sebastian-epbx 40,000 UNIT Fr@2100 SUBQ Sodium Chloride 2 ML TID PRN PRN NASAL Hydralazine HCl 50 MG ONCE ONE PO (CAN) Metoprolol Tartrate 25 MG Q12HR PO Furosemide 20 MG ONCE ONE IV (DC) Insulin Human Lispro 0 AC HS SUBQ Apixaban 2.5 MG BID PO Aspirin 81 MG DAILY PO Clopidogrel Bisulfate 75 MG DAILY PO (DC) Insulin Glargine 10 UNIT DAILY SUBQ Nifedipine 30 MG DAILY PO Atorvastatin Calcium 40 MG BEDTIME PO Sodium Bicarbonate 650 MG BID PO Acetaminophen 325 MG Q4H PRN PRN PO Dextrose/Water 25 ML ASDIR PRN IV (CKD) Dextrose/Water 50 ML ASDIR PRN IV (CKD) Glucagon 1 MG ASDIR PRN IM Albuterol Sulfate 2 PUFF RTQ4H PRN PRN INH Furosemide 80 MG Q48H PO Sodium Chloride 5 ML ASDIR PRN IV (DC) Sodium Chloride 10 ML ASDIR PRN IV (DC) Sodium Chloride 250 ML ASDIR PRN IV (DC) Sodium Chloride 500 ML .Q24H IV Acetaminophen 1,000 MG PREOP ONCALL PO (DC) Lactated Ringer's 1,000 ML PREOP ONCALL IV (DC) Lidocaine HCl 2 ML PREOP ONCALL LOCAL (DC) Sodium Chloride 500 ML PREOP ONCALL IV (DC) Sodium Chloride 1,000 ML PREOP ONCALL IV (DC) Physical Exam Head/Eyes: atraumatic, EOMI, PERRLA ENT: moist mucosal membranes Neck: no masses or swelling Cardiovascular: normal capillary refill, normal heart sounds, regular rate rhythm Respiratory: aerating well, clear to auscultatio n, symmetric expansion, no distress Abdomen: non-tender, normal bowel sounds, soft, no distention Musculoskeletal: no CVA tenderness 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, oriented X 3, CNII-XII intact Lymphatics: neck normal Psychiatry: normal affect, normal mood Results Findings/Data: Laboratory Tests 02/25 0242 Blood Gas Puncture Site R Brach O2 Saturation (90 - 100 %) 86.9 L ABG pH (7.35 - 7.45) 7.436 ABG pCO2 (35.0 - 45 mmHg) 36.8 ABG pO2 (80 - 100.0 mmHg) 50.8 L ABG HCO3 (22.0 - 26.0 MMOL/L) 24.8 ABG Total CO2 25.9 ABG Base Excess (-4.0 - 4.0 MMOL/L) 0.6 ABG Hematocrit (33.0 - 45.0 %) 30 L ABG Hemoglobin (11.0 - 15.0 G/DL) 10.1 L Jennifer Test Positive Sodium (134 - 147 MEQ/L) 137 Potassium (3.4 - 5.0 MEQ/L) 3.9 Chloride (100 - 108 MEQ/L) 102 Ionized Calcium (1.12 - 1.32 MMOL/L) 1.11 L Lactic Acid (0.9 - 1.7 mmol/l) 0.5 L Respiration Rate (/MIN) 20 O2 Delivery Device Cannula Laboratory Tests 02/25 02/25 02/25 02/24 02/24 1053 0725 0242 [id number] 2510 Chemistry POC Creatinine (0.6 - 1.0 mg/dL) 1.8 H POC Glucose (70 - 110 MG/DL) 64 L 163 H 203 H 1 48 H POC Glucose (mg/dL) (70 - 110 MG/DL) 168 H Laboratory Tests 02/25 0426 Hematology WBC (4.5 - 11.0 x10 3/uL) 6.4 RBC (3.54 - 5.02 x10 6/uL) 3.45 L Hgb (11.0 - 15.0 g/dL) 10.6 L Hct (33.0 - 45.0 %) 33.8 MCV (81.0 - 99.0 fL) 98.0 MCH (27.0 - 33.0 pg) 30.7 MCHC (33.0 - 37.0 g/dL) 31.4 L RDW (11.5 - 14.5 %) 14.7 H Plt Count (150 - 400 x10 3/uL) 191 MPV (7.0 - 9.0 fL) 10.3 H Neut % (Auto) (56.0 - 77.0 %) 61.5 Lymph % (Auto) (14.0 - 32.0 %) 19.4 [place] % (Auto) (4.8 - 9.0 %) 10.3 H Eos % (Auto) (0.3 - 3.7 %) 8.0 H Baso % (Auto) (0.0 - 2.0 %) 0.5 Neut # (Auto) (2.0 - 7.6 x10 3/uL) 3.93 Lymph # (Auto) (1.0 - 3.8 x10 3/uL) 1.24 [place] # (Auto) (0.1 - 0.8 x10 3/uL) 0.66 Eos # (Auto) (0.0 - 0.2 x10 3/uL) 0.51 H Baso # (Auto) (0.0 - 0.2 x10 3/uL) 0.03 Abs Immat Gran (auto) (0.00 - 0.03 x10 3/uL) 0. 02 Add Manual Diff NO Immature Gran % (0.0 - 2.0 %) 0.3 Nucleated RBC % (0 - 0 %) 0.0 Nucleated RBCs # (Man) (0.0 - 0.1 x10 3/uL) 0.0 0 Radiology data: Recent Impressions: RADIOLOGY - XR CHEST 2 V 02/24 1414 Report Impression - Status: SIGNED Entered: 02/24/2021 1430 Impression: Chest, single view. Left atrial appe ndage occlusion device is in place. Persistent, though improved bilateral coarse pulmonary opacities. No new pleural effusion or pneumothorax. Cardiac silhouette is of normal size. No acute o sseous abnormality. SL: [id number] Impression By: [email or web address] - Kayla Leal M.D. Diagnosis, Assessment Plan Free Text DxA P Notes Free text DxA P notes: Chronic atrial fibrillation, s/p watchman device placement Acute on chronic anemia. Chronic kidney disease Abnormal chest x-ray Hyperlipidemia CKD stage III Anemia of chronic disease Diabetes mellitus type 1 COPD not in exacerbation Hx CAD PLAN - Resume home medications - Heart healthy diet - Postoperative care - Pain control as needed - Incentive spirometry - Follow labs, electrolytes - Dual antiplatelet therapy - DVT prophylaxis/anticoagulation Eliquis - Follow renal function trend - Sliding scale insulin while inpatient, follow blood sugar trend and adjust scale as needed - Follow-up with any increase in oxygen demand or wheezing - bronchodilator as needed - Diuresis - Follow fluid volume status, intake and output, daily weight - Patient has not taken lasix for several days - CXR to assess for pulmonary edema - Supplemental oxygen as needed - Telemetry monitoring, assess for ST changes, a rrhythmias, rhythm changes - Further interventions per clinical course - Plan discussed with patient 02/24/2021. Patient on oxygen 2 L we will will wean off oxyg en. We will do chest x-ray as well. Chest x-ray findings yesterday no signs of infec tion at this time. No leukocytosis Doubt infectious. ? fluid congestion. Repeat chest x-ray be done today. Patient noted to have a hemoglobin of 6.7 this m orning. There is a drop from preprocedure levels. No active bleeding. Will get hematology on board as well Patient currently on antiplatelets and anticoagu lants. Need to closely watch. Repeat hemoglobin later t carina. Will transfuse 2 units of packed red blood cells given the patient's cardiac history. Renal function remains stable creatinine is 1.9. Note appreciated patient previously was 1.8 Spoke with the patient's jonny case over the phone updated regarding plan of care agreeable with plan of care 02/25/2021. Patient with anemia stable hemoglobin is better. No active bleeding Seen by hematology oncology as well likely anemi a of chronic disease Seen by cardiology okay for discharge And is to discharge holding Plavix. To be on aspirin and Eliquis on discharge Spoke to patient's daughter over the phone updated regarding plan of care she is agreeable. Electronically Signed by Bijal Nguyễn MD on 0 02/25/21 at 1307 RPT #:[id number] END OF REPORT 2021-02-25 10:26:00-00:00 [facility] ([facility]) DT PROGRESS NOTE REPORT#:[id number] REPORT STATUS: Signed DATE:02/25/21 TIME: 1026 PATIENT: CARLITA HERNANDEZ UNIT #: [id number] ROOM/BED: [place] [address] : 39 AGE: 80 SEX: F ATTEND: Shayla James MD ADM AUTHOR: Bekah Wan * ALL edits or amendments must be made on the [employer]/computer document * Progress Note Progress Note Cardiology/Structural heart Progress note Patient seen and examined no acute distress. Mariel verdin denies any complaints at this time. Patient has been doing well off of ox ygen. Hemoglobin improved to 10.6 post transfusion. Objective Physical Exam VS: Vital Signs Date Temp Pulse Resp B/P B/P Mean Pulse Ox FiO2 02/24-02/25 36.4-36.9 90-99 14-20 123-171/59-79 0.0-102.2 90-98 Last Documented: Result Date Time Pulse Ox 97 02/25 1105 B/P 139/68 02/25 1105 B/P Mean 0.0 02/25 1105 O2 Delivery Room air 02/25 1105 Temp 36.9 02/25 1105 Pulse 96 02/25 1105 Resp 15 02/25 1105 O2 Flow Rate 2 02/25 0251 PATIENT WEIGHT: Weight (lb): 120 Weight (oz): 4.02 Weight (kg): 54.545 General appearance: alert, awake, oriented Cardiovascular: regular rate and rhythm, normal heart sounds, normal S1/S2 Respiratory: clear to auscultation, symmetric ex pansion, no distress Abdomen: soft, no distention, no guarding Extremities: moves all, no edema Results Findings/Data: Laboratory Tests 02/25/21425: [Embedded Image Not Available] Laboratory Tests 02/25 242 Blood Gas Puncture Site R Brach O2 Saturation (90 - 100 %) 86.9 L ABG pH (7.35 - 7.45) 7.436 ABG pCO2 (35.0 - 45 mmHg) 36.8 ABG pO2 (80 - 100.0 mmHg) 50.8 L ABG HCO3 (22.0 - 26.0 MMOL/L) 24.8 ABG Total CO2 25.9 ABG Base Excess (-4.0 - 4.0 MMOL/L) 0.6 ABG Hematocrit (33.0 - 45.0 %) 30 L ABG Hemoglobin (11.0 - 15.0 G/DL) 10.1 L Jennifer Test Positive Sodium (134 - 147 MEQ/L) 137 Potassium (3.4 - 5.0 MEQ/L) 3.9 Chloride (100 - 108 MEQ/L) 102 Ionized Calcium (1.12 - 1.32 MMOL/L) 1.11 L Lactic Acid (0.9 - 1.7 mmol/l) 0.5 L Respiration Rate (/MIN) 20 O2 Delivery Device Cannula Laboratory Tests 02/25 02/25 02/25 02/24 02/24 1053 0725 0242 6673 8615 Chemistry POC Creatinine (0.6 - 1.0 mg/dL) 1.8 H POC Glucose (70 - 110 MG/DL) 64 L 163 H 203 H 1 48 H POC Glucose (mg/dL) (70 - 110 MG/DL) 168 H Laboratory Tests 02/25 426 Hematology WBC (4.5 - 11.0 x10 3/uL) 6.4 RBC (3.54 - 5.02 x10 6/uL) 3.45 L Hgb (11.0 - 15.0 g/dL) 10.6 L Hct (33.0 - 45.0 %) 33.8 MCV (81.0 - 99.0 fL) 98.0 MCH (27.0 - 33.0 pg) 30.7 MCHC (33.0 - 37.0 g/dL) 31.4 L RDW (11.5 - 14.5 %) 14.7 H Plt Count (150 - 400 x10 3/uL) 191 MPV (7.0 - 9.0 fL) 10.3 H Neut % (Auto) (56.0 - 77.0 %) 61.5 Lymph % (Auto) (14.0 - 32.0 %) 19.4 [place] % (Auto) (4.8 - 9.0 %) 10.3 H Eos % (Auto) (0.3 - 3.7 %) 8.0 H Baso % (Auto) (0.0 - 2.0 %) 0.5 Neut # (Auto) (2.0 - 7.6 x10 3/uL) 3.93 Lymph # (Auto) (1.0 - 3.8 x10 3/uL) 1.24 [place] # (Auto) (0.1 - 0.8 x10 3/uL) 0.66 Eos # (Auto) (0.0 - 0.2 x10 3/uL) 0.51 H Baso # (Auto) (0.0 - 0.2 x10 3/uL) 0.03 Abs Immat Gran (auto) (0.00 - 0.03 x10 3/uL) 0. 02 Add Manual Diff NO Immature Gran % (0.0 - 2.0 %) 0.3 Nucleated RBC % (0 - 0 %) 0.0 Nucleated RBCs # (Man) (0.0 - 0.1 x10 3/uL) 0.0 0 Assess/Plan Problem List/A P: 1. Paroxysmal atrial fibrillation 2. Coronary artery disease 3. Hypertension 4. Diabetes mellitus Free Text A P: * Patient with paroxysmal at rial fibrillation, chads vasc score of 7 , HASBLED 3 and intolerance to long-term anticoagulation due to recurrent anemia and high risk of falls * Patient is s/p successful implantation of a 24 mm watchman device in the left atrial appendage * Patient is status post 2 unit packed red blood cells transfusion for postop hemoglobin 6.7. Hemoglobin has increased to 10.6 and Plavix has been discontinued at this time. * Patient will be discharged to home on Eliquis 2.5 mg twice daily and aspirin 81. * Patient initiated on metoprolol 25 mg twice da neto for rate control. * Post op echo showed a trivial pericardial effu titi, EF 55 to 59%. * Patient has been cleared by Cardiology for dis charge * Post watchman discharge instructions provided to the patient * Patient is to follow-up with PCP and cardiolog ist in 1 to 2 weeks * Also follow-up with cardio logist for the 45-day ZBIGNIEW after which follow-up with for anticoagulation recommendation * Patient to continue eliquis until the 45-day T EE * If the 45 day ZBIGNIEW shows a well-seated watchman device with no thrombus/leaks then eliquis will be discontinued and davdi juma will be initiated on aspirin and Plavix at that time * Duration of aspirin is lifelong * Duration of Plavix is 6 months post 45 day ZBIGNIEW * Post Watchman discharge instructions /handout given to the patient who verbalized understanding of the instructions giv en and patient is notified to report any complaints of chest pain, shortness o f breath lightheadedness or dizziness to her tax evaluator. Electronically Signed by Bekah Wan on 0 03/11/21 at 1247 RPT #:[id number] END OF REPORT 2021-02-25 10:26:00-00:00 [facility] DT PROGRESS NOTE REPORT#:[id number] REPORT STATUS: Signed DATE:02/25/21 TIME: 1026 PATIENT: CARLITA HERNANDEZ UNIT #: [id number] ROOM/BED: [place] [address] : 39 AGE: 80 SEX: F ATTEND: Shayla James MD ADM AUTHOR: Bekah Wan * ALL edits or amendments must be made on the [employer]/computer document * See Addendum Progress Note Progress Note Cardiology/Structural heart Progress note Patient seen and examined no acute distress. Mariel verdin denies any complaints at this time. Patient has been doing well off of ox ygen. Hemoglobin improved to 10.6 post transfusion. Objective Physical Exam VS: Vital Signs Date Temp Pulse Resp B/P B/P Mean Pulse Ox FiO2 02/24-02/25 36.4-36.9 90-99 14-20 123-171/59-79 0.0-102.2 90-98 Last Documented: Result Date Time Pulse Ox 97 02/25 1105 B/P 139/68 02/25 1105 B/P Mean 0.0 02/25 110 O2 Delivery Room air 02/25 1105 Temp 36.9 02/25 110 Pulse 96 02/25 110 Resp 15 02/25 110 O2 Flow Rate 2 02/25 0251 PATIENT WEIGHT: Weight (lb): 120 Weight (oz): 4.02 Weight (kg): 54.545 General appearance: alert, awake, oriented Cardiovascular: regular rate and rhythm, normal heart sounds, normal S1/S2 Respiratory: clear to auscultation, symmetric ex pansion, no distress Abdomen: soft, no distention, no guarding Extremities: moves all, no edema Results Findings/Data: Laboratory Tests 02/25/21 0426: [Embedded Image Not Available] Laboratory Tests 02/25 0242 Blood Gas Puncture Site R Brach O2 Saturation (90 - 100 %) 86.9 L ABG pH (7.35 - 7.45) 7.436 ABG pCO2 (35.0 - 45 mmHg) 36.8 ABG pO2 (80 - 100.0 mmHg) 50.8 L ABG HCO3 (22.0 - 26.0 MMOL/L) 24.8 ABG Total CO2 25.9 ABG Base Excess (-4.0 - 4.0 MMOL/L) 0.6 ABG Hematocrit (33.0 - 45.0 %) 30 L ABG Hemoglobin (11.0 - 15.0 G/DL) 10.1 L Jennifer Test Positive Sodium (134 - 147 MEQ/L) 137 Potassium (3.4 - 5.0 MEQ/L) 3.9 Chloride (100 - 108 MEQ/L) 102 Ionized Calcium (1.12 - 1.32 MMOL/L) 1.11 L Lactic Acid (0.9 - 1.7 mmol/l) 0.5 L Respiration Rate (/MIN) 20 O2 Delivery Device Cannula Laboratory Tests 02/25 02/25 02/25 02/24 02/24 1053 0725 1150 0588 0483 Chemistry POC Creatinine (0.6 - 1.0 mg/dL) 1.8 H POC Glucose (70 - 110 MG/DL) 64 L 163 H 203 H 1 48 H POC Glucose (mg/dL) (70 - 110 MG/DL) 168 H Laboratory Tests 02/25 0426 Hematology WBC (4.5 - 11.0 x10 3/uL) 6.4 RBC (3.54 - 5.02 x10 6/uL) 3.45 L Hgb (11.0 - 15.0 g/dL) 10.6 L Hct (33.0 - 45.0 %) 33.8 MCV (81.0 - 99.0 fL) 98.0 MCH (27.0 - 33.0 pg) 30.7 MCHC (33.0 - 37.0 g/dL) 31.4 L RDW (11.5 - 14.5 %) 14.7 H Plt Count (150 - 400 x10 3/uL) 191 MPV (7.0 - 9.0 fL) 10.3 H Neut % (Auto) (56.0 - 77.0 %) 61.5 Lymph % (Auto) (14.0 - 32.0 %) 19.4 [place] % (Auto) (4.8 - 9.0 %) 10.3 H Eos % (Auto) (0.3 - 3.7 %) 8.0 H Baso % (Auto) (0.0 - 2.0 %) 0.5 Neut # (Auto) (2.0 - 7.6 x10 3/uL) 3.93 Lymph # (Auto) (1.0 - 3.8 x10 3/uL) 1.24 [place] # (Auto) (0.1 - 0.8 x10 3/uL) 0.66 Eos # (Auto) (0.0 - 0.2 x10 3/uL) 0.51 H Baso # (Auto) (0.0 - 0.2 x10 3/uL) 0.03 Abs Immat Gran (auto) (0.00 - 0.03 x10 3/uL) 0 .02 Add Manual Diff NO Immature Gran % (0.0 - 2.0 %) 0.3 Nucleated RBC % (0 - 0 %) 0.0 Nucleated RBCs # (Man) (0.0 - 0.1 x10 3/uL) 0.0 0 Assess/Plan Problem List/A P: 1. Paroxysmal atrial fibrillation 2. Coronary artery disease 3. Hypertension 4. Diabetes mellitus Free Text A P: * Patient with paroxysmal at rial fibrillation, chads vasc score of 7 , HASBLED 3 and intolerance to long-term anticoagulation due to recurrent anemia and high risk of falls * Patient is s/p successful implantation of a 24 mm watchman device in the left atrial appendage * Patient is status post 2 unit packed red blood cells transfusion for postop hemoglobin 6.7. Hemoglobin has increased to 10.6 and Plavix has been discontinued at this time. * Patient will be discharged to home on Eliquis 2.5 mg twice daily and aspirin 81. * Patient initiated on metoprolol 25 mg twice da neto for rate control. * Post op echo showed a trivial pericardial effu titi, EF 55 to 59%. * Patient has been cleared by Cardiology for dis charge * Post watchman discharge instructions provided to the patient * Patient is to follow-up with PCP and cardiolog ist in 1 to 2 weeks * Also follow-up with cardio logist for the 45-day ZBIGNIEW after which follow-up with for anticoagulation recommendation * Patient to continue eliquis until the 45-day T EE * If the 45 day ZBIGNIEW shows a well-seated watchman device with no thrombus/leaks then eliquis will be discontinued and david dennison will be initiated on aspirin and Plavix at that time * Duration of aspirin is lifelong * Duration of Plavix is 6 months post 45 day ZBIGNIEW * Post Watchman discharge instructions /handout given to the patient who verbalized understanding of the instructions giv en and patient is notified to report any complaints of chest pain, shortness o f breath lightheadedness or dizziness to her tax evaluator. Electronically Signed by Bekah Wan on 0 03/11/21 at 1247 Addendum 1: 03/30/21 1231 by Sergey Alatorre MD I have seen and examined the pt, I Agree with th e findings and plan as documented by Bekah Wan. Electronically Signed by Sergey Alatorre MD on at 1232 RPT #:[id number] END OF REPORT 2021-02-24 18:49:00-00:00 [id number] [address] PATIENT NAME: CARLITA HERNANDEZ ADMIT DATE: 02/23/21 ACCOUNT NO: [id number] ROOM NO: G.3397 AGE: 80 REPORT TYPE: CONSULTATION REPORT SEX: F ADMITTING PHYSICIAN:Luda Kruse MD ATTENDING PHYSICIAN:Norberto James MD CONSULTATION DATE: 02/24/2021 CONSULTING PHYSICIAN: Pietro Jarrell MD HEMATOLOGY CONSULTATION PHYSICIAN REQUESTING CONSULTATION: Dr. Nguyễn. REASON FOR CONSULTATION: Anemia. HISTORY OF PRESENT ILLNESS: This is an 80-year-o ld female with history of atrial fibrillation, COPD, diabetes type 2, CKD stage III, dyslipidemia, coronary artery disease, who presented on 2020. She was evaluated by cardiology and underwent a Watchman procedure at that time. She was noted to have hemoglobin 8.5 on 02/21, however, repeat CBC today shows a hemoglobin of 6.7. Platelets 211, MCV 101.4, RDW 15.9. The patient has been ordered 2 units of PRBCs of which 1 unit is currently simon sfusing. No active bleeding noted. No iron panel performed prior to initiati on of PRBC transfusion. No previous hemoglobin values f or comparison. The patient does have underlying CKD with creatinine ranging between 1.8 and 1.9. PAST MEDICAL HISTORY: 1. COPD. 2. Coronary artery disease. 3. Chronic atrial fibrillation. 4. Dyslipidemia. 5. Diabetes type 2. 6. Chronic kidney disease, stage III. 7. Anemia of chronic kidney disease. PAST SURGICAL HISTORY: Watchman procedure, 02/21. CURRENT MEDICATIONS: As per MAR. ALLERGIES: SULFA. FAMILY HISTORY: No history of malignancies or he matological disorder. SOCIAL HISTORY: Former smoker. No alcohol or ill icit drug use currently. REVIEW OF SYSTEMS: A 14-point review of systems noted to be negative unless otherwise mentioned in HPI. PATIENT NAME: CARLITA HERNANDEZ ACCOUNT #: G [id number] PHYSICAL EXAMINATION: VITAL SIGNS: Blood pressure 126/61, puls e 99, respiratory rate 14, temperature 36.4 degrees, and O2 saturation 90% on 2 liters nasal cannula. GENERAL: Pleasant elderly female, in no acute di stress. HEENT: Normocephalic, atraumatic. Conjunctivae p tana. NECK: Supple. No JVD. No carotid bruit. LUNGS: Clear to auscultation bilaterally. CARDIAC: S1 and S2 positive, tachycardic. ABDOMEN: Soft, nontender, nondistended. Bowel so unds positive. EXTREMITIES: No edema in bilateral lower extremi ties. NEUROLOGIC: Grossly nonfocal. Cranial nerves II through XII intact. SKIN: No rash or bruising seen. PSYCHIATRIC: The patient is awake and alert. LABORATORY DATA: Sodium 136, potassium 4.5, chlo ride 107, bicarbonate 22, BUN 24, creatinine 1.9, glucose 204, total b ilirubin 0.4. CBC; WBC 6.5, hemoglobin 6.7, hematocrit 21.8, platelets 211, MCV 101.4, RDW 15.9. PT 13.7 and INR 1.3. Chest x-ray 02/24/2021, persistent but improved bilateral coarse pulmonary opacities. No known pleural effusion. Left atria l appendage occlusion device in place. ASSESSMENT: 1. Vmezi-zo-tjwcwod normal to macrocytic anemia - multifactorial secondary to anemia of chronic renal insufficiency as well as possibility of acute iron deficiency. 2. Chronic kidney disease, stage III to IV. 3. History of atrial fibrillation, statu s post Watchman procedure, 02/21/2021. 4. Diabetes type 2, insulin dependent. 5. Chronic obstructive pulmonary disease. PLAN: 1. Agree with 2 units of PRBC transfusion. Multi factorial anemia, chronic, likely secondary to renal in sufficiency and possibly acutely with a superimposed blood loss given elevated RDW. Iron pane l not checked prior to transfusion and not likely to be indicative of true iron stores after transfusion. We will defer at this time. 2. Proceed with Epogen 40,000 units subcutaneous x1. 3. For thoroughness, check multiple myeloma pane l including serum protein electrophoresis, immunofixation, serum immunoglo bulins and light chains given renal insufficiency and chronic anemia. 4. Post-Watchman procedure management as per car diology. The patient is currently on aspirin and Eliquis 2.5 mg oral twi ce daily as well with Plavix having been discontinued. 5. Other medical management as per primary team. Thank you for the consultati on. We will follow alongside as the patient remains hospitalized. Dictated By: Pietro Jarrell MD WT: CON:GNEAL/EDSON/ESTELA PATIENT NAME: CARLITA HERNANDEZ ACCOUNT #: G [id number] Conf#: [id number]#: [id number] Authenticated by Pietro Jarrell MD On 03/28/2021 05:15:19 PM Electronically Signed by Pietro Jarrell MD on at 1715 PATIENT NAME: CARLITA HERNANDEZ ACCOUNT #: G [id number] 2021-02-24 18:29:00-00:00 [id number] [place] [address] PATIENT NAME: CARLITA HERNANDEZ ADMIT DATE: 02/23/21 ACCOUNT NO: [id number] ROOM NO: G.3340 AGE: 80 REPORT TYPE: eECHOCARDIOGRAM REPORT SEX: F ADMITTING PHYSICIAN:Luda Kruse MD ATTENDING PHYSICIAN:Norberto James MD *[place] [address] Limited Transthoracic Echocardiogram Patient: Carlita Hernandez Study Date: 02/24/2021 BP: 115 / 64 Location: [facility] URN: [id number] 6180 : 1940 Age: 80 Height: 63.8 in / 162 cm Gender: F Weight: 118 .8 lb / 54 kg BMI/BSA: 20.6 kg/m 2 / 1.56 m 2 *Ordering Physician: * Sergey Alatorre MD *Interpreting Physician: * Sergey Alatorre MD *Medicaid Analyst: * NÉSTOR Francis Indications: EVAL EFFUSION. Study data: Transthoracic echocardiogram, limite d study. Limited 2D and limited spectral Doppler. Location: Bedside. Patient status: Inpatient. Patient room number: 3340. Findings Left ventricle: The estimated ejection fraction is 55-59%. Tricuspid valve: There is moderate regurgitation . Right ventricular systolic pressure is 40 to 50 mmHg. Pericardium: A trivial pericardial effusion is i dentified. Measurements PATIENT NAME: CARLITA HERNANDEZ ACCOUNT #: G [id number] Right ventricle Value Ref Pressure, S 44 mm Hg ----- Tricuspid valve Value Ref Peak E 0.64 m/sec ----- TR peak v 3.14 m/sec <=2.8 Peak RV-RA grad, S 39 mm Hg ----- Pulmonary artery Value Ref Pressure, S 44.4 mm Hg ----- Systemic veins Value Ref Estimated CVP 5 mm Hg ----- Conclusions Summary: 1. Left ventricle: The estimated ejection fracti on is 55-59%. 2. Tricuspid valve: There is moderate regurgitat ion. 3. Pericardium, extracardiac: A trivial pericard ial effusion is identified. Prepared and electronically signed by Sergey Alatorre MD 02/24/2021 18:29 Electronically Signed by Sergey Alatorre MD on 0 02/24/21 at 1829 PATIENT NAME: CARLITA HERNANDEZ ACCOUNT #: G [id number] 2021-02-24 12:44:00-00:00 [facility]L [facility] Hospitalist Progress Note REPORT#:[id number] REPORT STATUS: Signed DATE:02/24/21 TIME: 1244 PATIENT: CARLITA HERNANDEZ UNIT #: [id number] ROOM/BED: [place] [address] : 39 AGE: 80 SEX: F ATTEND: Shayla James MD ADM AUTHOR: Bijal Nguyễn MD * ALL edits or amendments must be made on the [employer]/computer document * Subjective Chief Complaint: f/u s/p watchman HPI: Patient s/p watchman. Doing overall okay. Currently on 2 to 3 L of oxygen. Will wean oxyge n as tolerated. Keep SPO2 above 92%. Her hemoglobin was low as well this morning Review of Systems Additional notes: All 14 systems reviewed positive and indicated t he rest of the visit is negative. All systems rev neg: except as marked Objective General VS/I O: Vital Signs: Date Time Temp Pulse Resp B/P B/P Pulse O2 O2 Flow FiO2 Mean Ox Delivery Rate 02/24 1054 36.6 97 16 115/64 81.0 94 Nasal cannula 02/24 0655 36.7 97 16 124/72 89.1 97 Nasal cannula 02/24 0354 36.8 92 20 112/64 80.0 93 Nasal 2 cannula 02/23 2340 Nasal 3 cannula 02/23 1943 36.9 96 20 114/63 79.8 93 02/23 1439 Nasal 3 cannula 24 hour I O ending at 0700: 02/24 0700 02/23 1900 Intake Total 240 Output Total Balance 240 Intake, Oral 240 Patient 54.545 kg Weight Weight Stated/Reported Measurement Method PATIENT WEIGHT: Weight (lb): 120 Weight (oz): 4.02 Weight (kg): 54.545 Medications: Active Meds + DC'd Last 24 Hrs Insulin Human Lispro 0 AC HS SUBQ Apixaban 2.5 MG BID PO Aspirin 81 MG DAILY PO Clopidogrel Bisulfate 75 MG DAILY PO Insulin Glargine 10 UNIT DAILY SUBQ Nifedipine 30 MG DAILY PO Atorvastatin Calcium 40 MG BEDTIME PO Sodium Bicarbonate 650 MG BID PO Insulin Human Lispro 0 Q6HR SUBQ (DC) Acetaminophen 0 .STK-MED ONE PO (DC) Furosemide 0 .STK-MED ONE PO (DC) Acetaminophen 325 MG Q4H PRN PRN PO Dextrose/Water 25 ML ASDIR PRN IV (CKD) Dextrose/Water 50 ML ASDIR PRN IV (CKD) Glucagon 1 MG ASDIR PRN IM Albuterol Sulfate 2 PUFF RTQ4H PRN PRN INH Furosemide 80 MG Q48H PO Protamine Sulfate 0 .STK-MED ONE IV (DC) Glycopyrrolate 0 .STK-MED ONE .ROUTE (DC) Glycopyrrolate 0 .STK-MED ONE .ROUTE (DC) Neostigmine Methylsulfate 0 .STK-MED ONE .ROUTE (DC) Ondansetron HCl 0 .STK-MED ONE .ROUTE (DC) Heparin Sodium 0 .STK-MED ONE .ROUTE (DC) Sodium Chloride 5 ML ASDIR PRN IV Sodium Chloride 10 ML ASDIR PRN IV Sodium Chloride 250 ML ASDIR PRN IV Sodium Chloride 500 ML .Q24H IV Acetaminophen 1,000 MG PREOP ONCALL PO (CKD) Lactated Ringer's 1,000 ML PREOP ONCALL IV Lidocaine HCl 2 ML PREOP ONCALL LOCAL (DC) Lidocaine HCl 2 ML PREOP ONCALL LOCAL Sodium Chloride 500 ML PREOP ONCALL IV (DC) Sodium Chloride 500 ML PREOP ONCALL IV Sodium Chloride 1,000 ML PREOP ONCALL IV Sodium Chloride 5 ML ASDIR PRN IV (DC) Sodium Chloride 10 ML ASDIR PRN IV (DC) Sodium Chloride 250 ML ASDIR PRN IV (DC) Physical Exam Head/Eyes: atraumatic, EOMI, PERRLA ENT: moist mucosal membranes Neck: no masses or swelling Cardiovascular: normal capillary refill, normal heart sounds, regular rate rhythm Respiratory: aerating well, clear to auscultatio n, symmetric expansion, no distress Abdomen: non-tender, normal bowel sounds, soft, no distention Musculoskeletal: no CVA tenderness 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, oriented X 3, CNII-XII intact Lymphatics: neck normal Psychiatry: normal affect, normal mood Results Findings/Data: Laboratory Tests 02/24 02/24 02/24 02/24 02/24 1148 0532 0510 0510 0236 Chemistry Sodium (134 - 147 mEq/L) 136 Potassium (3.4 - 5.0 mEq/L) 4.5 Chloride (100 - 108 mEq/L) 107 Carbon Dioxide (21 - 33 mEq/l) 22 Anion Gap (0 - 20) 11 BUN (7 - 18 mg/dL) 24 H Creatinine (0.6 - 1.3 mg/dL) 1.9 H Glomerular Filtr Rate (70 - 80) 25.4 L Glucose (70 - 110 mg/dL) 204 H POC Glucose (70 - 110 MG/DL) 191 H 195 H 191 H 193 H Calcium (8.0 - 10.5 mg/dL) 8.2 Total Bilirubin (0.0 - 1.0 mg/dL) 0.40 AST (15 - 37 IUnit/L) 11 L ALT (30 - 65 IUnit/L) < 7 L Total Alk Phosphatase (20 - 125 77 IUnit/L) Total Protein (6.4 - 8.2 g/dL) 5.9 L Albumin (3.4 - 5.0 g/dL) 2.80 L 02/23 1349 Chemistry POC Glucose (70 - 110 MG/DL) 190 H Laboratory Tests 02/23 02/23 02/23 1322 1304 1251 Coagulation Activated Coag Time (74 - 137 SEC) 268 H 252 H 235 H Laboratory Tests 02/24 1031 Hematology WBC (4.5 - 11.0 x10 3/uL) 6.5 RBC (3.54 - 5.02 x10 6/uL) 2.15 L Hgb (11.0 - 15.0 g/dL) 6.7 L Hct (33.0 - 45.0 %) 21.8 L MCV (81.0 - 99.0 fL) 101.4 H MCH (27.0 - 33.0 pg) 31.2 MCHC (33.0 - 37.0 g/dL) 30.7 L RDW (11.5 - 14.5 %) 15.9 H Plt Count (150 - 400 x10 3/uL) 211 MPV (7.0 - 9.0 fL) 10.3 H Neut % (Auto) (56.0 - 77.0 %) 63.8 Lymph % (Auto) (14.0 - 32.0 %) 17.8 [place] % (Auto) (4.8 - 9.0 %) 9.5 H Eos % (Auto) (0.3 - 3.7 %) 7.8 H Baso % (Auto) (0.0 - 2.0 %) 0.6 Neut # (Auto) (2.0 - 7.6 x10 3/uL) 4.14 Lymph # (Auto) (1.0 - 3.8 x10 3/uL) 1.16 [place] # (Auto) (0.1 - 0.8 x10 3/uL) 0.62 Eos # (Auto) (0.0 - 0.2 x10 3/uL) 0.51 H Baso # (Auto) (0.0 - 0.2 x10 3/uL) 0.04 Abs Immat Gran (auto) (0.00 - 0.03 x10 3/uL) 0. 03 Add Manual Diff NO Immature Gran % (0.0 - 2.0 %) 0.5 Nucleated RBC % (0 - 0 %) 0.0 Nucleated RBCs # (Man) (0.0 - 0.1 x10 3/uL) 0.0 0 Radiology data: Recent Impressions: RADIOLOGY - XR CHEST 1 V 02/23 1815 Report Impression - Status: SIGNED Entered: 02/23/2021 3101 IMPRESSION: 1. Watchman device placement. 2. Interval development of mild diffuse pulmonar y opacities with persistent small right pleural effusion. Finding s may be exaggerated by portable technique. Erect PA and lateral depa rtmental radiographs can be obtained to better evaluate as clinically indicated. SL: SG-H Impression By: Ernestina - Dario Pelaez M.D. Diagnosis, Assessment Plan Free Text DxA P Notes Free text DxA P notes: Chronic atrial fibrillation, s/p watchman device placement Acute on chronic anemia. Chronic kidney disease Abnormal chest x-ray Hyperlipidemia CKD stage III Anemia of chronic disease Diabetes mellitus type 1 COPD not in exacerbation Hx CAD PLAN - Resume home medications - Heart healthy diet - Postoperative care - Pain control as needed - Incentive spirometry - Follow labs, electrolytes - Dual antiplatelet therapy - DVT prophylaxis/anticoagulation Eliquis - Follow renal function trend - Sliding scale insulin while inpatient, follow blood sugar trend and adjust scale as needed - Follow-up with any increase in oxygen demand or wheezing - bronchodilator as needed - Diuresis - Follow fluid volume status, intake and output, daily weight - Patient has not taken lasix for several days - CXR to assess for pulmonary edema - Supplemental oxygen as needed - Telemetry monitoring, assess for ST changes, a rrhythmias, rhythm changes - Further interventions per clinical course - Plan discussed with patient 02/24/2021. Patient on oxygen 2 L we will will wean off oxyg en. We will do chest x-ray as well. Chest x-ray findings yesterday no signs of infec tion at this time. No leukocytosis Doubt infectious. ? fluid congestion. Repeat chest x-ray be done today. Patient noted to have a hemoglobin of 6.7 this m orning. There is a drop from preprocedure levels. No active bleeding. Will get hematology on board as well Patient currently on antiplatelets and anticoagu lants. Need to closely watch. Repeat hemoglobin later t carina. Will transfuse 2 units of packed red blood cells given the patient's cardiac history. Renal function remains stable creatinine is 1.9. Note appreciated patient previously was 1.8 Spoke with the patient's jonny case over the phone updated regarding plan of care agreeable with plan of care Electronically Signed by Bijal Nguyễn MD on 0 02/24/21 at 1253 RPT #:[id number] END OF REPORT 2021-02-24 11:07:00-00:00 [facility] ([facility]) Cardiology Progress Note REPORT#:[id number] REPORT STATUS: Signed DATE:02/24/21 TIME: 1107 PATIENT: CARLITA HERNANDEZ UNIT #: [id number] ROOM/BED: 3340-1 : 39 AGE: 80 SEX: F ATTEND: Shayla James MD ADM AUTHOR: Bekah Wan * ALL edits or amendments must be made on the el [employer]/computer document * Subjective Chief Complaint: Post Watchman HPI: Carlita Hernandez is an 80-year-old female w ith a past medical history significant for paroxysmal atrial fibrillation, diabetes ernestina litus type 2, hypertension, hyperlipidemia, coronary dis ease status post stenting of LAD and circumflex, TIA , anemia, possible COPD, who was admitted for el ective watchman device implantation. Patient was not a good candidate f or long-term anticoagulation therapy secondary to history of anemia and high risk of recurrent falls. Patient may however tolerate short-term anticoag ulation therapy. Patient therefore was admitted yeste rday for elective watchman device implantation with the placement of a . Patient tolerated the proce dure, postoperatively patient was not able to be weaned off of her oxygen ther apy. Patient reports that she is not on oxygen at home. Echo done yesterday di d not show any evidence of pericardial effusion. Echo requested again today . Objective General VS/I O: 24 hour I O ending at 0700: 02/24 0700 02/23 1900 Intake Total 240 Output Total Balance 240 Intake, Oral 240 Patient 54.545 kg Weight Weight Stated/Reported Measurement Method Vital Signs: Date Time Temp Pulse Resp B/P B/P Pulse O2 O2 F low FiO2 Mean Ox Delivery Rate 02/24 1054 36.6 97 16 115/64 81.0 94 Nasal cannula 02/24 0655 36.7 97 16 124/72 89.1 97 Nasal cannula 02/24 0354 36.8 92 20 112/64 80.0 93 Nasal 2 cannula 02/23 2340 Nasal 3 cannula 02/23 1943 36.9 96 20 114/63 79.8 93 02/23 1439 Nasal 3 cannula PATIENT WEIGHT: Weight (lb): 120 Weight (oz): 4.02 Weight (kg): 54.545 Medications: Active Meds + DC'd Last 24 Hrs Insulin Human Lispro 0 AC HS SUBQ (UNV) Apixaban 2.5 MG BID PO Aspirin 81 MG DAILY PO Clopidogrel Bisulfate 75 MG DAILY PO Insulin Glargine 10 UNIT DAILY SUBQ Nifedipine 30 MG DAILY PO Atorvastatin Calcium 40 MG BEDTIME PO Sodium Bicarbonate 650 MG BID PO Insulin Human Lispro 0 Q6HR SUBQ (DCr) Acetaminophen 0 .STK-MED ONE PO (DC) Furosemide 0 .STK-MED ONE PO (DC) Acetaminophen 325 MG Q4H PRN PRN PO Dextrose/Water 25 ML ASDIR PRN IV (CKD) Dextrose/Water 50 ML ASDIR PRN IV (CKD) Glucagon 1 MG ASDIR PRN IM Albuterol Sulfate 2 PUFF RTQ4H PRN PRN INH Furosemide 80 MG Q48H PO Protamine Sulfate 0 .STK-MED ONE IV (DC) Glycopyrrolate 0 .STK-MED ONE .ROUTE (DC) Glycopyrrolate 0 .STK-MED ONE .ROUTE (DC) Neostigmine Methylsulfate 0 .STK-MED ONE .ROUTE (DC) Ondansetron HCl 0 .STK-MED ONE .ROUTE (DC) Heparin Sodium 0 .STK-MED ONE .ROUTE (DC) Sodium Chloride 5 ML ASDIR PRN IV Sodium Chloride 10 ML ASDIR PRN IV Sodium Chloride 250 ML ASDIR PRN IV Heparin Sodium 0 .STK-MED ONE .ROUTE (DC) Heparin Sodium/Sodium Chloride 500 ML .STK-MED O NE IV (DC) Cefazolin Sodium 0 .STK-MED ONE .ROUTE (DC) Heparin Sodium/Sodium Chloride 1,000 ML .STK-MED ONE IV (DC) Propofol 20 ML .STK-MED ONE IV (DC) Fentanyl Citrate 0 .STK-MED ONE .ROUTE (DC) Heparin Sodium 0 .STK-MED ONE .ROUTE (DC) Phenylephrine HCl 0 .STK-MED ONE .ROUTE (DC) Rocuronium [place] 0 .STK-MED ONE IV (DC) Sodium Chloride 100 ML .STK-MED ONE IV (DC) Sodium Chloride 500 ML .Q24H IV Acetaminophen 1,000 MG PREOP ONCALL PO (CKD) Lactated Ringer's 1,000 ML PREOP ONCALL IV Lidocaine HCl 2 ML PREOP ONCALL LOCAL (DC) Lidocaine HCl 2 ML PREOP ONCALL LOCAL Sodium Chloride 500 ML PREOP ONCALL IV (DC) Sodium Chloride 500 ML PREOP ONCALL IV Sodium Chloride 1,000 ML PREOP ONCALL IV Sodium Chloride 5 ML ASDIR PRN IV (DC) Sodium Chloride 10 ML ASDIR PRN IV (DC) Sodium Chloride 250 ML ASDIR PRN IV (DC) Diagnosis, Assessment Plan Problem List/A P: 1. Paroxysmal atrial fibrillation 2. Coronary artery disease 3. Hypertension 4. Diabetes mellitus CHADs2-VASc Score: CHADs2-VASc Score: Response Value age greater than 75 years: Yes 2 hx stroke, TIA, or TE: Yes 2 vascular disease: Yes 1 diabetes mellitus: Yes 1 female: Yes 1 Total 7 HAS-BLED Score: HAS-BLED Score: Response Value age 65 yrs or greater: Yes 1 hx of stroke: Yes 1 use of drugs w/bleed risk: Antiplatelet/ASA 325 mg 1 Total 3 Free Text DxA P Notes Free Text DxA P Notes: * Patient with paroxysmal at rial fibrillation, chads vasc score of 7 , HASBLED 3 and intolerance to long-term anticoagulation due to recurrent anemia and high risk of falls * Patient is s/p successful implantation of a watchman device in the left atrial appendage * Patient tolerated the procedure without any po stop complications * No thrombus was identified in the pre-and Intr a-Op ZBIGNIEW * Patient did well overnight and is currently he modynamically stable. * Right groin suture removed by this NURSE QUALITY. no infe ction, bleeding, or hematoma. Dermabond applied and intact. * Patient is on 02 at 2L. Unable to wean patient off oxygen, ABGs requested, recheck echo requested, ches t x-ray yesterday suggestive of interval development of mild diffuse pulmonary opacities with persist ent small right pleural effusion. Lasix 20 mg IV x1. Strict I/O, daily w eights * Postop hemoglobin 6.7. Plan for 2 units packed red blood cell transfusion * DC Plavix per Dr Alatorre. Continue Court neha 2.5 mg twice daily and aspirin 81 mg daily * Supportive care continued * Discussed with Dr. Alatorre Electronically Signed by Bekah Wan on 0 02/25/21 at 0820 RPT #:[id number] END OF REPORT 2021-02-24 11:07:00-00:[address] [facility] Cardiology Progress Note REPORT#:[id number] REPORT STATUS: Signed DATE:02/24/21 TIME: 110 PATIENT: CARLITA HERNANDEZ UNIT #: [id number] ROOM/BED: [place] [address] : 39 AGE: 80 SEX: F ATTEND: Shayla James MD ADM AUTHOR: Bekah Wan * ALL edits or amendments must be made on the el [employer]/computer document * Bekah Wan 02/24/21 1107: Subjective Chief Complaint: Post Watchman HPI: Carlita Hernandez is an 80-year-old female w ith a past medical history significant for paroxysmal atrial fibrillation, diabetes ernestina litus type 2, hypertension, hyperlipidemia, coronary dis ease status post stenting of LAD and circumflex, TIA , anemia, possible COPD, who was admitted for el ective watchman device implantation. Patient was not a good candidate f or long-term anticoagulation therapy secondary to history of anemia and high risk of recurrent falls. Patient may however tolerate short-term anticoag ulation therapy. Patient therefore was admitted yeste rday for elective watchman device implantation with the placement of a . Patient tolerated the proce dure, postoperatively patient was not able to be weaned off of her oxygen ther apy. Patient reports that she is not on oxygen at home. Echo done yesterday di d not show any evidence of pericardial effusion. Echo requested again today . Objective General VS/I O: 24 hour I O ending at 0700: 02/24 0700 02/23 1900 Intake Total 240 Output Total Balance 240 Intake, Oral 240 Patient 54.545 kg Weight Weight Stated/Reported Measurement Method Vital Signs: Date Time Temp Pulse Resp B/P B/P Pulse O2 O2 F low FiO2 Mean Ox Delivery Rate 02/24 1054 36.6 97 16 115/64 81.0 94 Nasal cannula 02/24 0655 36.7 97 16 124/72 89.1 97 Nasal cannula 02/24 0354 36.8 92 20 112/64 80.0 93 Nasal 2 cannula 02/23 2340 Nasal 3 cannula 02/23 1943 36.9 96 20 114/63 79.8 93 02/23 1439 Nasal 3 cannula PATIENT WEIGHT: Weight (lb): 120 Weight (oz): 4.02 Weight (kg): 54.545 Medications: Active Meds + DC'd Last 24 Hrs Insulin Human Lispro 0 AC HS SUBQ (UNV) Apixaban 2.5 MG BID PO Aspirin 81 MG DAILY PO Clopidogrel Bisulfate 75 MG DAILY PO Insulin Glargine 10 UNIT DAILY SUBQ Nifedipine 30 MG DAILY PO Atorvastatin Calcium 40 MG BEDTIME PO Sodium Bicarbonate 650 MG BID PO Insulin Human Lispro 0 Q6HR SUBQ (DCr) Acetaminophen 0 .STK-MED ONE PO (DC) Furosemide 0 .STK-MED ONE PO (DC) Acetaminophen 325 MG Q4H PRN PRN PO Dextrose/Water 25 ML ASDIR PRN IV (CKD) Dextrose/Water 50 ML ASDIR PRN IV (CKD) Glucagon 1 MG ASDIR PRN IM Albuterol Sulfate 2 PUFF RTQ4H PRN PRN INH Furosemide 80 MG Q48H PO Protamine Sulfate 0 .STK-MED ONE IV (DC) Glycopyrrolate 0 .STK-MED ONE .ROUTE (DC) Glycopyrrolate 0 .STK-MED ONE .ROUTE (DC) Neostigmine Methylsulfate 0 .STK-MED ONE .ROUTE (DC) Ondansetron HCl 0 .STK-MED ONE .ROUTE (DC) Heparin Sodium 0 .STK-MED ONE .ROUTE (DC) Sodium Chloride 5 ML ASDIR PRN IV Sodium Chloride 10 ML ASDIR PRN IV Sodium Chloride 250 ML ASDIR PRN IV Heparin Sodium 0 .STK-MED ONE .ROUTE (DC) Heparin Sodium/Sodium Chloride 500 ML .STK-MED O NE IV (DC) Cefazolin Sodium 0 .STK-MED ONE .ROUTE (DC) Heparin Sodium/Sodium Chloride 1,000 ML .STK-MED ONE IV (DC) Propofol 20 ML .STK-MED ONE IV (DC) Fentanyl Citrate 0 .STK-MED ONE .ROUTE (DC) Heparin Sodium 0 .STK-MED ONE .ROUTE (DC) Phenylephrine HCl 0 .STK-MED ONE .ROUTE (DC) Rocuronium [place] 0 .STK-MED ONE IV (DC) Sodium Chloride 100 ML .STK-MED ONE IV (DC) Sodium Chloride 500 ML .Q24H IV Acetaminophen 1,000 MG PREOP ONCALL PO (CKD) Lactated Ringer's 1,000 ML PREOP ONCALL IV Lidocaine HCl 2 ML PREOP ONCALL LOCAL (DC) Lidocaine HCl 2 ML PREOP ONCALL LOCAL Sodium Chloride 500 ML PREOP ONCALL IV (DC) Sodium Chloride 500 ML PREOP ONCALL IV Sodium Chloride 1,000 ML PREOP ONCALL IV Sodium Chloride 5 ML ASDIR PRN IV (DC) Sodium Chloride 10 ML ASDIR PRN IV (DC) Sodium Chloride 250 ML ASDIR PRN IV (DC) Diagnosis, Assessment Plan Problem List/A P: 1. Paroxysmal atrial fibrillation 2. Coronary artery disease 3. Hypertension 4. Diabetes mellitus CHADs2-VASc Score: CHADs2-VASc Score: Response Value age greater than 75 years: Yes 2 hx stroke, TIA, or TE: Yes 2 vascular disease: Yes 1 diabetes mellitus: Yes 1 female: Yes 1 Total 7 HAS-BLED Score: HAS-BLED Score: Response Value age 65 yrs or greater: Yes 1 hx of stroke: Yes 1 use of drugs w/bleed risk: Antiplatelet/ASA 325 mg 1 Total 3 Free Text DxA P Notes Free Text DxA P Notes: * Patient with paroxysmal at rial fibrillation, chads vasc score of 7 , HASBLED 3 and intolerance to long-term anticoagulation due to recurrent anemia and high risk of falls * Patient is s/p successful implantation of a watchman device in the left atrial appendage * Patient tolerated the procedure without any po stop complications * No thrombus was identified in the pre-and Intr a-Op ZBIGNIEW * Patient did well overnight and is currently he modynamically stable. * Right groin suture removed by this NURSE QUALITY. no infe ction, bleeding, or hematoma. Dermabond applied and intact. * Patient is on 02 at 2L. Unable to wean patient off oxygen, ABGs requested, recheck echo requested, ches t x-ray yesterday suggestive of interval development of mild diffuse pulmonary opacities with persist ent small right pleural effusion. Lasix 20 mg IV x1. Strict I/O, daily w eights * Postop hemoglobin 6.7. Plan for 2 units packed red blood cell transfusion * DC Plavix per Dr Alatorre. Continue Court neha 2.5 mg twice daily and aspirin 81 mg daily * Supportive care continued * Discussed with Sergey Day 03/30/21 1231: Attestations Physician Attestation Agree w/findings plan: I have seen and examined the pt, I Agree with th e findings and plan as documented by Bekah Wan Electronically Signed by Bekah Wan on 0 02/25/21 at 0820 Electronically Signed by Sergey Alatorre MD on at 1231 RPT #:[id number] END OF REPORT 2021-02-23 17:18:00-00:00 [facility]L [facility] ([facility]) Hospitalist History Physical REPORT#:[id number] REPORT STATUS: Signed DATE:02/23/21 TIME: 1718 PATIENT: CARLITA HERNANDEZ UNIT #: [id number] ROOM/BED: G.3397-1 : 39 AGE: 80 SEX: F ATTEND: Shayla James MD ADM AUTHOR: Schuyler Sotelo NURSE QUALITY * ALL edits or amendments must be made on the [employer]/computer document * History of Present Illness HPI Chief complaint: Persistent atrial fibrillation PCP: PCP: Undefined Provider HPI: Carlita Mahmood is an 80 year old female with pa history of atrial fibrillation, COPD, CAD, HLD, DM, CKD III, Anemi a of chronic disease. Patient has persistent atrial fibril lation, she was evaluated by cardiology and found to be a good candidate for watchman device placemen t which was performed successfully today, patient seen post procedurally, doing well, no complaint of pain at this time, no chest pain, palpitations, shortness of breath, cough, fever, lightheadedness, dizziness, nausea, vomit ing, diarrhea. History Social History Smoking status: Smoking status for patients 13 years old or old er: Former Smoker Medication/Allergy-Vaccine Hx Allergies: Coded Allergies: Sulfa (Sulfonamide Antibiotics) (Mild, RASH 02/10 01/02) Review of Systems Skin: Denies: rash. Respiratory: Denies: pneumonia, SOB. Cardiovascular: Denies: chest pain. All systems rev neg: except as noted Physical Exam VS/I O: Vital Signs Date Temp Pulse Resp B/P B/P Mean Pulse Ox FiO2 02/23 96.7 67 18 159/72 91 Last Documented: Result Date Time O2 Delivery Nasal cannula 02/23 1439 O2 Flow Rate 3 02/23 1439 Pulse Ox 91 02/23 1035 B/P 159/72 02/23 1035 Temp 96.7 02/23 1035 Pulse 67 02/23 1035 Resp 18 02/23 1035 Patient Weight and BMI Weight (kg): 54.545 BMI: 20.6 General appearance: alert, awake, oriented, no r espiratory distress Head/Eyes: atraumatic, EOMI, PERRLA ENT: moist mucosal membranes Neck: no masses or swelling Cardiovascular: normal capillary refill, normal heart sounds, regular rate rhythm Respiratory: decreased breath sounds Abdomen quadrants: LLQ normal bowel sounds, LUQ normal richard l sounds, RLQ normal bowel sounds, RUQ normal bowel sounds Musculoskeletal: no CVA tenderness 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, 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 X 3, CNII-XII intact Lymphatics: neck normal Psychiatry: normal affect, normal mood Results Findings/Data: Laboratory Tests: 02/23 02/23 02/23 02/23 02/23 1349 1322 1304 1251 1100 Chemistry POC Glucose (70 - 110 MG/DL) 190 H 201 H Coagulation Activated Coag Time (74 - 137 SEC) 268 H 252 H 235 H Diagnosis, Assessment Plan Free Text A P: Chronic atrial fibrillation, s/p watchman device placement Hyperlipidemia CKD stage III Anemia of chronic disease Diabetes mellitus type 1 COPD not in exacerbation Hx CAD PLAN - Resume home medications - Heart healthy diet - Postoperative care - Pain control as needed - Incentive spirometry - Follow labs, electrolytes - Dual antiplatelet therapy - DVT prophylaxis/anticoagulation Eliquis - Follow renal function trend - Sliding scale insulin while inpatient, follow blood sugar trend and adjust scale as needed - Follow-up with any increase in oxygen demand or wheezing - bronchodilator as needed - Diuresis - Follow fluid volume status, intake and output, daily weight - Patient has not taken lasix for several days - CXR to assess for pulmonary edema - Supplemental oxygen as needed - Telemetry monitoring, assess for ST changes, a rrhythmias, rhythm changes - Further interventions per clinical course - Plan discussed with patient Electronically Signed by Schuyler Sotelo NP on at 1823 at 1302 RPT #:[id number] END OF REPORT 2021-02-23 17:18:00-00:00 [facility] ([facility]) Hospitalist History Physical REPORT#:[id number] REPORT STATUS: Signed DATE:02/23/21 TIME: 1718 PATIENT: CARLITA HERNANDEZ UNIT #: [id number] ROOM/BED: [place] [address] : 39 AGE: 80 SEX: F ATTEND: Shayla James MD ADM AUTHOR: Schuyler Sotelo NP * ALL edits or amendments must be made on the [employer]/computer document * History of Present Illness HPI Chief complaint: Persistent atrial fibrillation PCP: PCP: Undefined Provider HPI: Carlita Mahmood is an 80 year old female with pa history of atrial fibrillation, COPD, CAD, HLD, DM, CKD III, Anemi a of chronic disease. Patient has persistent atrial fibril lation, she was evaluated by cardiology and found to be a good candidate for watchman device placemen t which was performed successfully today, patient seen post procedurally, doing well, no complaint of pain at this time, no chest pain, palpitations, shortness of breath, cough, fever, lightheadedness, dizziness, nausea, vomit ing, diarrhea. History Social History Smoking status: Smoking status for patients 13 years old or old er: Former Smoker Medication/Allergy-Vaccine Hx Allergies: Coded Allergies: Sulfa (Sulfonamide Antibiotics) (Mild, RASH 02/10 01/02) Review of Systems Skin: Denies: rash. Respiratory: Denies: pneumonia, SOB. Cardiovascular: Denies: chest pain. All systems rev neg: except as noted Physical Exam VS/I O: Vital Signs Date Temp Pulse Resp B/P B/P Mean Pulse Ox FiO2 02/23 96.7 67 18 159/72 91 Last Documented: Result Date Time O2 Delivery Nasal cannula 02/23 1439 O2 Flow Rate 3 02/23 1439 Pulse Ox 91 02/23 1035 B/P 159/72 02/23 1035 Temp 96.7 02/23 1035 Pulse 67 02/23 1035 Resp 18 02/23 1035 Patient Weight and BMI Weight (kg): 54.545 BMI: 20.6 General appearance: alert, awake, oriented, no r espiratory distress Head/Eyes: atraumatic, EOMI, PERRLA ENT: moist mucosal membranes Neck: no masses or swelling Cardiovascular: normal capillary refill, normal heart sounds, regular rate rhythm Respiratory: decreased breath sounds Abdomen quadrants: LLQ normal bowel sounds, LUQ normal richard l sounds, RLQ normal bowel sounds, RUQ normal bowel sounds Musculoskeletal: no CVA tenderness 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, oriented X 3, CNII-XII intact Lymphatics: neck normal Psychiatry: normal affect, normal mood Results Findings/Data: Laboratory Tests: 02/23 02/23 02/23 02/23 02/23 1349 1322 1304 1251 1100 Chemistry POC Glucose (70 - 110 MG/DL) 190 H 201 H Coagulation Activated Coag Time (74 - 137 SEC) 268 H 252 H 235 H Diagnosis, Assessment Plan Free Text A P: Chronic atrial fibrillation, s/p watchman device placement Hyperlipidemia CKD stage III Anemia of chronic disease Diabetes mellitus type 1 COPD not in exacerbation Hx CAD PLAN - Resume home medications - Heart healthy diet - Postoperative care - Pain control as needed - Incentive spirometry - Follow labs, electrolytes - Dual antiplatelet therapy - DVT prophylaxis/anticoagulation Eliquis - Follow renal function trend - Sliding scale insulin while inpatient, follow blood sugar trend and adjust scale as needed - Follow-up with any increase in oxygen demand or wheezing - bronchodilator as needed - Diuresis - Follow fluid volume status, intake and output, daily weight - Patient has not taken lasix for several days - CXR to assess for pulmonary edema - Supplemental oxygen as needed - Telemetry monitoring, assess for ST changes, a rrhythmias, rhythm changes - Further interventions per clinical course - Plan discussed with patient Electronically Signed by Schuyler Stoelo NP on at 1823 RPT #:[id number] END OF REPORT 2021-02-23 17:14:00-00:00 [id number] [place] [address] PATIENT NAME: CARLITA HERNANDEZ ADMIT DATE: 02/23/21 ACCOUNT NO: [id number] ROOM NO: [facility] AGE: 80 REPORT TYPE: eECHOCARDIOGRAM REPORT SEX: F ADMITTING PHYSICIAN:Luda Kruse MD ATTENDING PHYSICIAN:Norberto James MD *[place] [address] Transthoracic Echocardiogram Patient: Carlita Hernandez Study Date: 02/23/2021 BP: 108 / 67 Location: [facility] URN: [id number] : 1940 Age: 80 Height: 64 in / 162.6 cm Gender: F Weight: 119 .9 lb / 54.5 kg BMI/BSA: 20.6 kg/m 2 / 1.57 m 2 *Ordering Physician: * Bekah Wan *Interpreting Physician: * Sergey Alatorre MD *Medicaid Analyst: * Beckie Freeman Indications: Rule out pericardial Effusion. Study data: Transthoracic echocardiogram. Proced ure: Transthoracic echocardiography was performed. Image quality wa s excellent. Complete 2D, complete spectral Doppler, and color Doppler . Location: Bedside. Patient status: Inpatient. Patient room number: PACU. Study status: Routine. Rhythm: Normal sinus rhythm. Findings Left ventricle: The cavity size is normal. The e stimated ejection fraction is 50-54%. Pericardium: There is no pericardial effusion. PATIENT NAME: CARLITA HERNANDEZFORD ACCOUNT #: [id number] Measurements Left ventricle Value Ref CHARLIE, LAX 3.5 cm 3.8 - 5.2 ESD, LAX 2.5 cm 2.2 - 3.5 ESD/bsa, LAX 1.6 cm/m 2 1.3 - 2.1 FS, LAX 27 % 27 - 45 ESD/bsa major ax, A4C 3.8 cm/m 2 --------- CHARLIE/bsa minor ax, A4C 3.8 cm/m 2 --------- CHARLIE major ax, A2C 6.6 cm --------- ESD major ax, A2C 6.4 cm --------- CHARLIE/bsa major ax, A2C 4.2 cm/m 2 --------- ESD/bsa major ax, A2C 4.1 cm/m 2 --------- PW, ED 0.7 cm 0.6 - 0.9 IVS/PW, ED 1.11 --------- EF 53 % 54 - 74 Ventricular septum Value Ref IVS, ED 0.8 cm 0.6 - 0.9 Conclusions Summary: 1. Left ventricle: The cavity size is normal. Th e estimated ejection fraction is 50-54%. 2. Pericardium, extracardiac: There is no perica rdial effusion. Prepared and electronically signed by Sergey Alatorre MD 02/23/2021 17:14 Electronically Signed by Sergey Alatorre MD on 0 02/23/21 at 1715 PATIENT NAME: CARLITA HERNANDEZ ACCOUNT #: [id number] 2021-02-23 13:56:00-00:00 [id number] [address] PATIENT NAME: CARLITA CABA ADMIT DATE: 02/23/21 ACCOUNT NO: [id number] ROOM NO: [facility] AGE: 80 REPORT TYPE: eELECTROCARDIOGRAM REPORT SEX: F ADMITTING PHYSICIAN:Luda Kruse MD ATTENDING PHYSICIAN:Norberto James MD Order: [id number] Test Reason : WATCHMAN Test Date/Time Stamp: SunFeb 23 2021 13:56:55 Blood Pressure : / mmHG Vent. Rate : 100 BPM Atrial Rate : 100 BPM P-R Int : 162 ms QRS Dur : 112 ms QT Int : 404 ms P-R-T Axes : 078 094 -26 degree s QTc Int : 521 ms Normal sinus rhythm Right bundle branch block T wave abnormality, consider lateral ischemia Abnormal ECG When compared with ECG of 21-FEB-2021 13:38, Significant changes have occurred Confirmed by TERELL CAMACHO MD ([id number]) on 02/24/20 4:32:33 PM Referred By: Luda Kruse Confirmed by:TERELL MARTINI MD at 1632 PATIENT NAME: CARLITA CABA ACCOUNT #: [id number] 2021-02-21 13:38:00-00:00 [id number] [place] [address] PATIENT NAME: CARLITA CABA ADMIT DATE: ACCOUNT NO: [id number] ROOM NO: AGE: 80 REPORT TYPE: eELECTROCARDIOGRAM REPORT SEX: F ADMITTING PHYSICIAN: ATTENDING PHYSICIAN:Luda Kruse MD Order: [id number] Test Reason : PRE-OP WATCHMAN Test Date/Time Stamp: SunFeb 21 2021 13:38:41 Blood Pressure : / mmHG Vent. Rate : 088 BPM Atrial Rate : 088 BPM P-R Int : 152 ms QRS Dur : 084 ms QT Int : 364 ms P-R-T Axes : 081 083 059 degree s QTc Int : 440 ms Normal sinus rhythm Nonspecific T wave abnormality Abnormal ECG No previous ECGs available Confirmed by TERELL CAMACHO MD ([id number]) on 02/22/20 2:52:54 PM Referred By: Luda Kruse Confirmed by:TERELL MARTINI MD at 1457 PATIENT NAME: CARLITA CABA RAE ACCOUNT #: G [id number]
--- NOTE | 2023-03-28 12:49 | RAD REPORT ---
EXAM DESCRIPTION: RADChest Single View03/28/2023 12:21 pm CLINICAL HISTORY: afib COMPARISON: Chest Pa And Lat (2 Views) dated 10/17/2022; Chest Single View dated 12/18/2021; Chest Sing le View dated 12/14/2021; Chest Single View dated 01/27/2021 TECHNIQUE: Portable AP view of the chest. FINDINGS: The lungs are clear.Chronic interstitial changes suggestive of COPD with hyperinflation ag ain seen. No pneumothorax or effusion. The cardiomediastinal contours are unremarkable. IMPRESSION: No acute cardiopulmonary process.
[2023-03-28 13:07] LABS: Hematocrit 22.3 % (36.0-45.0); Lymphocytes % 15.1 % (15.3-44.8); MCV 74.8 fL (80-100); MPV 8.6 fL (7.6-11.3); RBC Red Blood Cell Count 2.99 M/uL (3.86-4.86)
[2023-03-28 13:51] LABS: Bilirubin Total 0.4 mg/dL (0.2-1.0); Magnesium 1.7 mg/dL (1.6-2.4); Potassium 4.8 mEq/L (3.5-5.1); Protein, Total 7.8 g/dL (6.4-8.2); Thyroid Stimulating Hormone 0.973 uIU/mL (0.358-3.740); Troponin High Sensitivity 39.3 pg/mL (<58.9)
[2023-03-28 13:54] LABS: Blood Morphology Comment NOTED (NOT SEEN); Hypochromasia 1+; Platelet Estimate ADEQ; White Blood Cell Scan OK (OK)
[2023-03-28] MEDS ORDERED: NA CHLORIDE 0.9% 0 ML ONE (14:07)
--- NOTE | 2023-03-28 14:42 | EDPHYS ---
Physician Documentation [facility] Name: Carlita Villalobos Age: 82 yrs Sex: Female : 1940 Arrival Date: 03/28/2023 Time: 11:45 Bed 7 Private MD: Kapil Servin ED Physician Anson Frost HPI: 03/28 15:12 This 82 yrs old Female presents to ER via Ambulatory with complaints of Irregular rt Pulse, afib. 15:12 Patient presents to the ED with shortness of breath has been going on for several rt months, worsening. Patient was seen at her clinical dermatologist office who sent her here today for with RVR to get initiated on an amiodarone drip with likely cardioversion tomorrow. The patient denies other acute complaints at this time. Symptoms are moderate severity, no other aggravating or alleviating factors.. Historical: - Allergies: 12:00 Sulfa (Sulfonamide Antibiotics); nj1 - PMHx: 12:00 Diabetes - IDDM; Hypertension; Hypothyroidism; nj1 - PSHx: 12:00 cardiac stents; Hysterectomy; Tonsillectomy; Back surgery; nj1 - Immunization history:: Client reports receiving the 2nd dose of the Covid vaccine. - Social history:: Smoking status: Patient/guardian denies using tobacco, but has a distant history of tobacco abuse. - Family history:: not pertinent. ROS: 15:12 Constitutional: Negative for fever, chills, and weight loss, Cardiovascular: Negative rt for chest pain, palpitations, and edema, Abdomen/GI: Negative for abdominal pain, nausea, vomiting, diarrhea, and constipation, MS/Extremity: Negative for injury and deformity, Skin: Negative for injury, rash, and discoloration, Neuro: Negative for headache, weakness, numbness, tingling, and seizure, Psych: Negative for depression, anxiety, suicide ideation, homicidal ideation, and hallucinations. 15:12 Respiratory: Positive for shortness of breath, Negative for cough. Exam: 15:12 Constitutional: This is a well developed, well nourished patient who is awake, alert, rt and in no acute distress. Head/Face: Normocephalic, atraumatic. Chest/axilla: Normal chest wall appearance and motion. Nontender with no deformity. No lesions are appreciated. Cardiovascular: Regular rate and rhythm with a normal S1 and S2. No gallops, murmurs, or rubs. Normal PMI, no JVD. No pulse deficits. Respiratory: Lungs have equal breath sounds bilaterally, clear to auscultation and percussion. No rales, rhonchi or wheezes noted. No increased work of breathing, no retractions or nasal flaring. Abdomen/GI: Soft, non-tender, with normal bowel sounds. No distension or tympany. No guarding or rebound. No evidence of tenderness throughout. Skin: Warm, dry with normal turgor. Normal color with no rashes, no lesions, and no evidence of cellulitis. MS/ Extremity: Pulses equal, no cyanosis. Neurovascular intact. Full, normal range of motion. Neuro: Awake and alert, GCS 15, oriented to person, place, time, and situation. Cranial nerves II-XII grossly intact. Motor strength 5/5 in all extremities. Sensory grossly intact. Cerebellar exam normal. Normal gait. Psych: Awake, alert, with orientation to person, place and time. Behavior, mood, and affect are within normal limits. 15:12 ECG was reviewed by the Attending Physician. Vital Signs: 11:57 BP 129 / 64; Pulse 91; Resp 18; Temp 98.1; Pulse Ox 100% ; Weight 49.9 kg (R); Height 5 nj1 ft. 3 in. ; Pain 0/10; 13:48 Pulse 99; Resp 18 S; Pulse Ox 96% on R/A; kc6 15:01 BP 176 / 73; Pulse 85; Resp 20; Pulse Ox 98% on R/A; kc6 11:57 Body Mass Index 19.49 (49.90 kg, 160.02 cm) nj1 11:57 Pain Scale: Adult nj1 MDM: 12:37 Patient medically screened. rt 15:12 Differential diagnosis: Anemia Chronic Obstructive Pulmonary Disease Myocardial rt Infarction pneumonia, Pneumothorax afib. Data reviewed: vital signs, nurses notes. Consideration of Admission/Observation Patient was admitted/placed on observation. Management of patient was discussed with the following: Pressing Department Supervisor: [employer] Supervisor recommends amiodarone drip, can hold bolus. Primary Care Provider: Agrees to admit. I considered the following discharge prescriptions or medication management in the emergency department Medications were administered in the Emergency Department. See MAR. Independent interpretation of the following test(s) in the Emergency Department X-Ray: My interpretation is Mild edema seen on interpretation of the x-ray images. Test considered but Not performed: CT: Low suspicion for PE, CT angiogram not indicated. Care significantly affected by the following chronic conditions: Diabetes, Hypertension. Counseling: I had a detailed discussion with the patient and/or guardian regarding: the historical points, exam findings, and any diagnostic results supporting the discharge/admit diagnosis, lab results, radiology results, the need for further work-up and treatment in the hospital. 03/28 11:56 Order name: CBC with Diff; Complete Time: 14:04 rt 03/28 11:56 Order name: CMP; Complete Time: 14:04 rt 03/28 11:56 Order name: Troponin High Sensitivity; Complete Time: 14:04 rt 03/28 11:56 Order name: BNP; Complete Time: 14:04 rt 03/28 11:56 Order name: TSH; Complete Time: 14:04 rt 03/28 11:56 Order name: Magnesium; Complete Time: 14:04 rt 03/28 13:11 Order name: CBC Smear Scan; Complete Time: 14:04 EDWI 03/28 14:17 Order name: Retic Count rt 03/28 14:17 Order name: Vitamin B12 rt 03/28 14:17 Order name: Iron Level rt 03/28 14:17 Order name: Ferritin rt 03/28 14:17 Order name: TIBC rt 03/28 14:20 Order name: Bb Add On bd 03/28 14:20 Order name: Type And Screen bd 03/28 15:11 Order name: Packed RBC Leukored EDWI 03/28 15:52 Order name: Glucose, Ancillary Testing EDWI 03/28 11:56 Order name: Chest Single View XRAY; Complete Time: 12:52 rt 03/28 11:56 Order name: EKG; Complete Time: 11:57 rt 03/28 11:56 Order name: EKG - Nurse/Tech; Complete Time: 13:02 rt EC:12 Rate is 87 beats/min. Rhythm is irregularly irregular, Normal Sinus Rhythm with No rt ectopy. QRS [place] is Normal. QRS interval is normal. QT interval is normal. No Q waves. Interpreted by me. Administered Medications: 12:01 CANCELLED (Duplicate Order): amiodarone IVP 150 mg IVP once rt 12:02 CANCELLED (Duplicate Order): amiodarone IVPB 900 mg, D5W IV 500 ml IVPB at 1 mg/min rt continuous; for 6 hrs, then change to 0.5 mg/min 14:52 Drug: Insulin Regular Human Sub-Q 10 units {Co-Signature: ll1 (Brooks King RN).} kc6 Route: Sub-Q; Site: right upper arm; 16:00 Follow up: Response: No adverse reaction; Blood sugar is lowered [facility] 15:21 Drug: amiodarone IVPB 900 mg, D5W IV 500 ml Route: IVPB; Rate: 1 mg/min; Site: right kc6 antecubital; 16:00 Follow up: Response: No adverse reaction; IV Status: Infusion continued upon admission 6 Disposition: 15:16 Critical Care:. rt Disposition Summary: 03/28/23 14:41 Hospitalization Ordered Hospitalization Status: Observation rt Provider: Kapil Servin rt Location: Telemetry/MedSurg (observation) rt Condition: Fair rt Problem: new rt Symptoms: have improved rt Bed/Room Type: Standard rt Room Assignment: 210(03/28/23 15:18) dw Diagnosis - Symptomatic anemia rt - Atrial fibrillation with rapid ventricular rate rt - Hyperglycemia rt Forms: - Medication Reconciliation Form rt - SBAR form rt Critical care time excluding procedures: 15:16 Critical care time: Bedside Care: 30 minutes, Consultation: 10 minutes. Total time: 40 rt minutes Signatures: Dispatcher [employer] Jerica Fountain RN RN dw Saloni Delgado RN RN kc6 Anson Frost MD MD rt Carmen Hernandez RN RN nj1 Brooks King RN ll1 Corrections: (The following items were deleted from the chart) 12:01 11:56 amiodarone IVP 150 mg IVP once ordered. rt rt 12:02 11:56 amiodarone 900 mg, D5W 500 ml; IVPB at 1 mg/min continuous; for 6 hrs, then rt change to 0.5 mg/min ordered. rt 15:18 14:41 rt dw
--- NOTE | 2023-03-28 14:42 | ER ---
Nurse's Notes [facility] Name: Carlita Villalobos Age: 82 yrs Sex: Female : 1940 Arrival Date: 03/28/2023 Time: 11:45 Bed 7 Private MD: Kapil Servin Diagnosis: Symptomatic anemia;Atrial fibrillation with rapid ventricular rate;Hyperglycemia Presentation: 03/28 11:57 Chief complaint: Patient states: Pt was at membership [employer] office to review results from [facility] stress test done yesterday, told she had Atrial Fibrillation and was instructed to come to ED for further treatment. Coronavirus screen: Vaccine status: Patient reports being unvaccinated. Ebola Screen: Patient denies travel to an Ebola-affected area in the 21 days before illness onset. Initial Sepsis Screen: Does the patient meet any 2 criteria? HR > 90 bpm. No. Patient's initial sepsis screen is negative. Does the patient have a suspected source of infection? No. Patient's initial sepsis screen is negative. Risk Assessment: Do you want to hurt yourself or someone else? Patient reports no desire to harm self or others. Onset of symptoms was March 28, 2023. 11:57 Method Of Arrival: Ambulatory [facility] 11:57 Acuity: PARESH 3 nj1 Historical: - Allergies: 12:00 Sulfa (Sulfonamide Antibiotics); nj1 - PMHx: 12:00 Diabetes - IDDM; Hypertension; Hypothyroidism; nj1 - PSHx: 12:00 cardiac stents; Hysterectomy; Tonsillectomy; Back surgery; nj1 - Immunization history:: Client reports receiving the 2nd dose of the Covid vaccine. - Social history:: Smoking status: Patient/guardian denies using tobacco, but has a distant history of tobacco abuse. - Family history:: not pertinent. Screenin:03 [facility] ED Fall Risk Assessment (Adult) History of falling in the last 3 months, kc6 including since admission No falls in past 3 months (0 pts) Confusion or Disorientation No (0 pts) Intoxicated or Sedated No (0 pts) Impaired Gait No (0 pts) Mobility Assist Device Used No (0 pt) Altered Elimination No (0 pt) Score/Fall Risk Level 0 - 2 = Low Risk Oriented to surroundings, Maintained a safe environment, Educated pt \T\ family on fall prevention, incl call for assistance when getting out of bed, Assessed \T\ reinforced patient's understanding of fall precautions, Hourly rounding (assess needs \T\ fall precautionary measures) done. Abuse screen: Denies threats or abuse. Denies injuries from another. Nutritional screening: No deficits noted. Tuberculosis screening: No symptoms or risk factors identified. Assessment: 13:02 General: Appears in no apparent distress. comfortable, Behavior is calm, cooperative, kc6 appropriate for age. Pain: Denies pain. Pain does not radiate. Neuro: [place] Agitation-Sedation Scale (RASS): 0 - Alert and Calm Level of Consciousness is awake, alert, obeys commands, Oriented to person, place, time, situation, Appropriate for age. Cardiovascular: Denies chest pain, palpitations, Heart tones S1 S2 present Capillary refill < 3 seconds Rhythm is atrial fibrillation. Respiratory: Airway is patent Trachea midline Respiratory effort is even, unlabored, Respiratory pattern is regular, symmetrical. GI: No signs and/or symptoms were reported involving the gastrointestinal system. : No signs and/or symptoms were reported regarding the genitourinary system. EENT: No signs and/or symptoms were reported regarding the EENT system. Derm: No signs and/or symptoms reported regarding the dermatologic system. Skin is intact, Skin is pink, warm \T\ dry. Musculoskeletal: No signs and/or symptoms reported regarding the musculoskeletal system. Circulation, motion, and sensation intact. Capillary refill < 3 seconds, Range of motion: intact in all extremities. 14:02 Reassessment: Patient appears in no apparent distress at this time. No changes from kc6 previously documented assessment. Patient and/or family updated on plan of care and expected duration. Pain level reassessed. Patient is alert, oriented x 3, equal unlabored respirations, skin warm/dry/pink. 15:00 Reassessment: Patient appears in no apparent distress at this time. No changes from kc6 previously documented assessment. Patient and/or family updated on plan of care and expected duration. Pain level reassessed. Patient is alert, oriented x 3, equal unlabored respirations, skin warm/dry/pink. Vital Signs: 11:57 BP 129 / 64; Pulse 91; Resp 18; Temp 98.1; Pulse Ox 100% ; Weight 49.9 kg (R); Height 5 nj1 ft. 3 in. ; Pain 0/10; 13:48 Pulse 99; Resp 18 S; Pulse Ox 96% on R/A; kc6 15:01 BP 176 / 73; Pulse 85; Resp 20; Pulse Ox 98% on R/A; kc6 11:57 Body Mass Index 19.49 (49.90 kg, 160.02 cm) nj1 11:57 Pain Scale: Adult [facility] ED Course: 11:50 Patient arrived in ED. am2 11:50 Kapil Servin MD is Private Physician. am2 11:51 Anson Frost MD is Attending Physician. rt 12:00 Triage completed. nj1 12:02 Arm band placed on right wrist. nj1 12:23 Chest Single View XRAY In Process Unspecified. EDMS 12:40 Saloni Delgado, KIRAN is Primary Nurse. kc6 13:02 Inserted saline lock: 20 gauge in right antecubital area, using aseptic technique. kc6 Blood collected. Patient maintains SpO2 saturation greater than 95% on room air. 13:03 Patient has correct armband on for positive identification. Bed in low position. Call kc6 light in reach. Side rails up X2. Adult w/ patient. Client placed on continuous cardiac and pulse oximetry monitoring. NIBP monitoring applied. dough brake machine operator on. 14:40 Kapil Servin MD is Hospitalizing Provider. rt 15:00 Inserted saline lock: 20 gauge in left forearm, using aseptic technique. kc6 15:40 No provider procedures requiring assistance completed. Patient admitted, IV remains in kc6 place. Administered Medications: 12:01 CANCELLED (Duplicate Order): amiodarone IVP 150 mg IVP once rt 12:02 CANCELLED (Duplicate Order): amiodarone IVPB 900 mg, D5W IV 500 ml IVPB at 1 mg/min rt continuous; for 6 hrs, then change to 0.5 mg/min 14:52 Drug: Insulin Regular Human Sub-Q 10 units {Co-Signature: ll1 (Brooks King RN).} kc Route: Sub-Q; Site: right upper arm; 16:00 Follow up: Response: No adverse reaction; Blood sugar is lowered kc6 15:21 Drug: amiodarone IVPB 900 mg, D5W IV 500 ml Route: IVPB; Rate: 1 mg/min; Site: right [facility] antecubital; 16:00 Follow up: Response: No adverse reaction; IV Status: Infusion continued upon admission kc6 Medication: 15:41 VIS not applicable for this client. kc6 Outcome: 14:41 Decision to Hospitalize by Provider. rt 15:40 Admitted to Med/surg accompanied by tech, via stretcher, room 210, with chart, Report kc6 called to KIRAN Nagel 15:40 Condition: stable 15:40 Instructed on the need for admit. 16:01 Patient left the ED. kc6 Signatures: Dispatcher [employer] EDShaina Farah am2 Saloni Delgado, RN RN kc6 Anson Frost MD MD rt Carmen Hernandez RN RN nj1 Brooks King RN ll1
[2023-03-28] MEDS ORDERED: INSULIN -REGULAR HUMAN 50 UNIT/0.5 ML ML ONE (14:52)
[2023-03-28 14:57] LABS: RBC Red Blood Cell Count 2.77 M/uL (3.86-4.86)
[2023-03-28] MEDS ORDERED: AMIODARONE HCL 900 MG in Dextrose 5%-Water 482 ML IV SCH (15:00)
[2023-03-28 16:12] VITALS: BMI 18.8
[2023-03-28 16:22] LABS: Ferritin 12.5 ng/mL (8-388)
[2023-03-28] MEDS ORDERED: D50W 25 GM/50 ML SYRINGE IV PRN ×2 (17:02→18:08)
[2023-03-28] MEDS ORDERED: GLUCAGON 1 MG/VIAL IM PRN ×2 (17:02→18:08)
[2023-03-28] MEDS ORDERED: INSULIN -REGULAR HUMAN 50 UNIT/0.5 ML ML SQ SCH (17:10)
[2023-03-28] MEDS ORDERED: LEVALBUTEROL 0.63 MG/3 ML NEB NEB PRN (17:17)
[2023-03-28] MEDS ORDERED: HYDRALAZINE HCL 20 MG/ML VIAL IV PRN ×2 (17:17→18:11)
--- NOTE | 2023-03-28 17:24 | P.HP ---
Certification for Inpatient Patient admitted to: Inpatient With expected LOS: >2 Midnights Patient will require the following post-hospital care: None Practitioner: I am a practitioner with admitting privileges, knowledge of patient current condition, hospital course, and medical plan of care. Services: Services provided to patient in accordance with Admission requirements found in Title 42 Section 412.3 of the Code of Federal Regulations Patient History Date of Service: 03/28/23 Primary Care Provider: Gareth Reason for admission: atrial fib. History of Present Illness: Patient is an office patient of [place]. She suffers from dementia, uncontrolled dm2, hypothyroidism ckd stage 4. She was going to Dr. Kruse for a stress test. Was found to be in Afib with an irregular rhythm. Was sent to the ER. She had an elevated sugar and a HB of 6.5 Was admitted. The patient is in bed comfortably. She has no no complaints. She reports no melena or hemotchezia. She has been eating well. However has been loosing weight. Her sugars have been variable. from the 100's to the 400's recently Allergies Sulfa (Sulfonamide Antibiotics) Allergy (Intermediate, Verified 12/14/21 23:25) Nausea/Vomiting/flu like symptoms Home Medications: Aspirin [Aspirin EC 81 MG] 81 mg PO DAILY 12/14/21 Atorvastatin Calcium 40 mg PO BEDTIME 12/14/21 Cholecalciferol (Vitamin D3) [Vitamin D 1000 Iu Tab] 1,000 unit PO DAILY 12/14/21 Clopidogrel Bisulfate [Plavix] 75 mg PO DAILY 12/14/21 Levothyroxine [Synthroid] 88 mcg PO [id number] 12/14/21 Memantine HCl 5 mg PO DAILY 12/14/21 Metoprolol Tartrate 25 mg PO BID 12/14/21 Montelukast [Singulair] 10 mg PO DAILY 12/14/21 Telmisartan 40 mg PO DAILY 12/14/21 Fluticasone [Flonase 50MCG Nasal [place]*] 1 spray IH PRN PRN 12/17/21 Fluticasone/Salmeterol [Advair Hfa 45-21 Mcg Inhaler] 1 puff IH BID 12/17/21 Albuterol Sulfate [Albuterol Sulfate Hfa] 1 puff IH Q6H PRN 03/28/23 Insulin Degludec [Tresiba Flextouch U-100] 32 unit SQ DAILY 03/28/23 Mecobalamin [B12 Active] 1 tab PO DAILY 03/28/23 - Past Medical/Surgical History Diabetic: Yes -: Diabetes mellitus type 2 insulin-dependent -: Hypothyroidism -: Atrial fibrillation not on chronic anti coagulation therapy -: COPD -: HTN -: History of MAC pulmonary infection -: Back surgery -: Hysterectomy -: Bladder suspension -: Benign tumor removed from right arm -: Tonsillectomy -: Thyroid nodule removed with some thyroid Psychosocial/ Personal History: , 4-children, She does not work. - Family History Father -: Heart disease, Diabetes Notes: Sister -: Diabetes Mother -: Diabetes Brother -: Diabetes - Social History Alcohol use: No CD- Drugs: No Caffeine use: Yes Review of Systems 10-point ROS is otherwise unremarkable Cardiovascular: Palpitations Physical Examination - Vital Signs Temperature: 98.1 F Blood Pressure: 176/73 Pulse: 85 Respirations: 20 - Physical Exam General: Alert, In no apparent distress HEENT: Atraumatic, PERRLA, Mucous membr. moist/pink, EOMI, Sclerae nonicteric Neck: Supple, 2+ carotid pulse no bruit, No LAD, Without JVD or thyroid abnormality Respiratory: Clear to auscultation bilaterally, Normal air movement Cardiovascular: Regular rate/rhythm, Normal S1 S2 Gastrointestinal: Normal bowel sounds, No tenderness Musculoskeletal: No tenderness Integumentary: No rashes Neurological: Normal gait, Normal speech, Normal strength at 5/5 x4 extr, Normal tone, Normal affect Lymphatics: No axilla or inguinal lymphadenopathy - Studies Laboratory Data (last 24 hrs) 03/28/23 12:59: Sodium 129 L, Potassium 4.8, BUN 53 H, Creatinine 2.48 H, Glucose 540 H*, Magnesium 1.7, Total Bilirubin 0.4, AST 22, ALT 39, Alkaline Phosphatase 174 H 03/28/23 12:59: WBC 6.60, Hgb 6.5 L, Hct 22.3 L, Plt Count 239 Assessment and Plan - Problems (Diagnosis) (1) Atrial fibrillation Onset Date: 11/15/15 Current Visit: No Status: Chronic Plan: will start her on amiodarone as per Dr. Kruse. Will see is she needs cardioversion in the am. Qualifiers: Atrial fibrillation type: paroxysmal Qualified Code(s): I48.0 - Paroxysmal atrial fibrillation (2) Anemia Current Visit: Yes Status: Acute Plan: willl check a epo and reticulocyte level. Transfuse 1 unit. May need another unit depending on her response to the first unit. Will consult Dr. Freeman as well. Qualifiers: Anemia type: unspecified type Qualified Code(s): D64.9 - Anemia, unspecified (3) CKD stage 3 secondary to diabetes Current Visit: Yes Status: Chronic Plan: Her creatine is actually doing better in the last few day. Will continue monitoring (4) DM2 (diabetes mellitus, type 2) Current Visit: No Status: Chronic Plan: continue home insulin dosage with mild sliding scale. She is very labile Qualifiers: Diabetes mellitus care home insulin use: with superintendent container terminal use Diabetes mellitus complication detail: with chronic kidney disease Chronic kidney disease stage: stage 4 (severe) (5) Hypothyroidism associated with surgical procedure Onset Date: 11/15/15 Current Visit: No Status: Chronic Plan: check tsh and continue her home dosage of thyroid medication Discharge Plan: Home Plan to discharge in: Greater than 2 days - Advance Directives Does patient have a Living Will: Yes Does patient have a Durable POA for Healthcare: Yes - Code Status/Comfort Care Code Status Assessed: Yes Code Status: Full Code Physician Review: Patient Assessed, Agree with Above Assessment and Plan Critical Care: No Time Spent Managing Pts Care (In Minutes): 60
[2023-03-28] MEDS: INSULIN -REGULAR HUMAN 50 UNIT/0.5 ML ML SQ SCH ×2 (18:22→21:23)
[2023-03-28] MEDS ORDERED: NA CHLORIDE 0.9% 250 ML ONE (20:59)
[2023-03-28] MEDS: [UNRECOGNIZED DRUG - OTHER] IH SCH (21:00)
[2023-03-28] MEDS: SALMETEROL IH SCH (21:00)
[2023-03-28] MEDS ORDERED: ATORVASTATIN 40 MG TAB PO SCH (21:00)
[2023-03-28] MEDS: FLUTICASONE IH SCH (21:00)
[2023-03-28 21:16] LABS: RBC Red Blood Cell Count 2.94 M/uL (3.86-4.86)
[2023-03-28] MEDS: METOPROLOL TAR 25 MG TAB PO SCH (21:22)
[2023-03-29 03:04] LABS: Absolute Lymphocytes (CBC) 1.3 K/uL (0.7-4.9); Hematocrit 25.6 % (36.0-45.0); Lymphocytes % 15.9 % (15.3-44.8); MCV 76.1 fL (80-100); MPV 8.8 fL (7.6-11.3); RBC Red Blood Cell Count 3.36 M/uL (3.86-4.86)
[2023-03-29 03:24] LABS: Albumin 2.7 g/dL (3.4-5.0); Bilirubin Total 0.5 mg/dL (0.2-1.0); Potassium 4.1 mEq/L (3.5-5.1); Protein, Total 7.2 g/dL (6.4-8.2)
[2023-03-29] MEDS: LEVOTHYROXINE SOD 0.088 MG TAB PO SCH ×2 (05:28→08:42)
[2023-03-29 05:37] LABS: Calcium Oxalate Crystals- Ur Many /HPF (None Seen); Renal Epithelial <5 /HPF (None Seen); Specific Gravity 1.017 (1.005-1.030); Urine Bacteria Loaded /HPF (<20); Urine Bilirubin NEGATIVE (Negative); Urine Blood 1+ (Negative); Urine Clarity Extremely Turbid (Clear); Urine Color Orange (Yellow); Urine Glucose 1+ (Negative); Urine Mucus 1+ /HPF (None Seen); Urine Protein 3+ (Negative); Urine RBC >50 /HPF (None Seen); Urine Urobilinogen Normal (Normal); Urine WBC Clump Many /HPF (None Seen)
--- NOTE | 2023-03-29 05:38 | EKG ---
Test Date: 2023-03-28 Test Time: 12:52:28 Superintendent Job: YUDI MEASUREMENT RESULTS: Intervals: Rate: 87 IN: QRSD: 82 QT: 394 QTc: 474 [place]: P: IN: QRS: 68 T: 117 INTERPRETIVE STATEMENTS: Atrial fibrillation Nonspecific ST abnormality Abnormal ECG Compared to ECG 01/27/2021 17:42:31 Sinus rhythm no longer present Possible ischemia no longer present ST (T wave) deviation still present Electronically Signed On 03-29-23 05:36:41 CDT by Valeriano Lombardi
[2023-03-29] MEDS: INSULIN -REGULAR HUMAN 50 UNIT/0.5 ML ML SQ SCH ×3 (07:30→16:19)
[2023-03-29] MEDS: METOPROLOL TAR 25 MG TAB PO SCH (08:37)
[2023-03-29] MEDS: SALMETEROL IH SCH (08:39)
[2023-03-29] MEDS: [UNRECOGNIZED DRUG - OTHER] IH SCH (08:39)
[2023-03-29] MEDS: FLUTICASONE IH SCH (08:39)
--- NOTE | 2023-03-29 08:46 | P.PN ---
Subjective Date of Service: 03/29/23 Primary Care Provider: Gareth Chief Complaint: atrial fib. Subjective: Improving (rate controlled) Review of Systems 10-point ROS is otherwise unremarkable Physical Examination - Vital Signs Temperature: 97.3 F Blood Pressure: 146/68 Pulse: 61 Respirations: 18 Pulse Ox (%): 96 - Physical Exam General: Alert, In no apparent distress HEENT: Atraumatic, PERRLA, EOMI Neck: Supple, JVD not distended Respiratory: Clear to auscultation bilaterally, Normal air movement Cardiovascular: Regular rate/rhythm, Normal S1 S2 Gastrointestinal: Normal bowel sounds, No tenderness Musculoskeletal: No tenderness Integumentary: No rashes Neurological: Normal speech, Normal tone, Normal affect Lymphatics: No axilla or inguinal lymphadenopathy - Studies Laboratory Data (last 24 hrs) 03/28/23 12:59: Sodium 129 L, Potassium 4.8, BUN 53 H, Creatinine 2.48 H, Glucose 540 H*, Magnesium 1.7, Total Bilirubin 0.4, AST 22, ALT 39, Alkaline Phosphatase 174 H 03/28/23 12:59: WBC 6.60, Hgb 6.5 L, Hct 22.3 L, Plt Count 239 Assessment And Plan - Current Problems (Diagnosis) (1) Atrial fibrillation Onset Date: 11/15/15 Current Visit: No Status: Chronic Plan: will start her on amiodarone as per Dr. Kruse. Will see is she needs cardioversion in the am. rate controlled 03/29 Qualifiers: Atrial fibrillation type: paroxysmal Qualified Code(s): I48.0 - Paroxysmal atrial fibrillation (2) Anemia Current Visit: Yes Status: Acute Plan: willl check a epo and reticulocyte level. Transfuse 1 unit. May need another unit depending on her response to the first unit. Will consult Dr. Freeman as well. 03/29 she is stable. will have her seen by Dr. Freeman today Qualifiers: Anemia type: unspecified type Qualified Code(s): D64.9 - Anemia, unspecified (3) CKD stage 3 secondary to diabetes Current Visit: Yes Status: Chronic Plan: Her creatine is actually doing better in the last few day. Will continue monitoring (4) DM2 (diabetes mellitus, type 2) Current Visit: No Status: Chronic Plan: continue home insulin dosage with mild sliding scale. She is very labile Qualifiers: Diabetes mellitus terminal makeup operator insulin use: with terminal makeup operator use Diabetes mellitus complication detail: with chronic kidney disease Chronic kidney disease stage: stage 4 (severe) (5) Hypothyroidism associated with surgical procedure Onset Date: 11/15/15 Current Visit: No Status: Chronic Plan: check tsh and continue her home dosage of thyroid medication Discharge Plan: Home Plan to discharge in: 24 Hours - Code Status/Comfort Care Code Status Assessed: No Physician Review: Patient Assessed, Agree with Above Assessment and Plan Critical Care: No Time Spent Managing PTS Care (In Minutes): 20
[2023-03-29] MEDS: AMIODARONE HCL 200 MG TAB PO SCH ×2 (09:00→09:33)
[2023-03-29] MEDS ORDERED: MEMANTINE HCL 10 MG TABLET PO SCH (09:00)
[2023-03-29] MEDS ORDERED: VITAMIN D 1000 UNIT TAB PO SCH (09:00)
[2023-03-29] MEDS ORDERED: MONTELUKAST 10 MG TAB PO SCH (09:00)
[2023-03-29] MEDS ORDERED: VALSARTAN 80 MG TAB PO SCH (09:00)
[2023-03-29] MEDS ORDERED: INSULIN GLARGINE 100 UNIT/ML SQ SCH (09:00)
[2023-03-29 12:36] VITALS: O2SAT 95
--- NOTE | 2023-03-29 13:22 | CON ---
Date of Consultation: 03/29/2023 Reason For Consultation: Atrial fibrillation. History Of Present Illness: Mrs. Villalobos is 82. Has a history of significant dementia, diabetes, hype rtension, anemia, dyslipidemia, hypothyroidism. She was in the office yesterday with atrial fibrilla tion, which was fairly new onset. She was admitted to the hospital to Dr. Servin's service for atrial fibrillation treatment. She was placed on p.o. amiodarone. I think Dr. Kruse plans to change this to IV amiodarone and maybe do a cardioversion down the road. She is not very symptomatic with her a trial fibrillation. Past Medical History: As stated above. Allergies: SHE IS ALLERGIC TO SULFA. Review of Systems: Negative. Social History: Negative. Family History: Negative. Medications: At home include Lipitor, Synthroid, metoprolol, valsartan, hydralazine, and insulin. Physical Examination: Vital Signs: Showed atrial fibrillation, rate controlled in the 60s. HEENT: Negative. Neck: Supple with no bruit. Chest: Clear. Cardiac: Revealed atrial fibrillation. Abdomen: Benign. Extremities: Revealed no clubbing, cyanosis, or edema. Diagnostic Data: EKG showed AFib. Chest x-ray is negative. She does have UTI. She has a creatinin e of 2.48. Hemoglobin was 6.5. Glucose was 548. BNP is 3870. Impression And Plan: Atrial fibrillation, new onset, on p.o. amiodarone. Dr. Kruse will switch it to IV amiodarone, may be a plan a cardioversion later. The patient has urinary tract infection that needs to be treated with antibiotic. Her blood glucose is poorly controlled and that needs to be add ressed. She has anemia and that needs to be addressed. Her BNP is slightly elevated. Her creatinin e is 2.48. We probably should stop her valsartan. Continue metoprolol, hydralazine, Lipitor, insuli n, and Synthroid. No cardiac workup at this point. We will continue her present regimen. We will d iscuss the case further with Dr. Servin. RYAN/DULCE MARIA Voice ID: [id number] Report ID: [id number]
[2023-03-29 16:44] LABS: Absolute Lymphocytes (CBC) 1.6 K/uL (0.7-4.9); Hematocrit 25.7 % (36.0-45.0); Lymphocytes % 20.5 % (15.3-44.8); MCV 74.5 fL (80-100); MPV 8.6 fL (7.6-11.3); RBC Red Blood Cell Count 3.46 M/uL (3.86-4.86)
[2023-03-29 17:15] VITALS: BP 164/76; TEMP 98.1
--- NOTE | 2023-03-30 11:07 | P.DS ---
Admission Date: 03/28/23 Discharge Date: 03/29/23 Primary Care Provider: Gareth Disposition: ROUTINE DISCHARGE Discharge Condition: FAIR Reason for Admission: atrial fib. - Problems (1) Atrial fibrillation Onset Date: 11/15/15 Status: Chronic Qualifiers: Atrial fibrillation type: paroxysmal Qualified Code(s): I48.0 - Paroxysmal atrial fibrillation (2) Anemia Status: Acute Qualifiers: Anemia type: unspecified type Qualified Code(s): D64.9 - Anemia, unspecified (3) CKD stage 3 secondary to diabetes Status: Chronic (4) DM2 (diabetes mellitus, type 2) Status: Chronic Qualifiers: Diabetes mellitus correction insulin use: with correction use Diabetes mellitus complication detail: with chronic kidney disease Chronic kidney disease stage: stage 4 (severe) (5) Hypothyroidism associated with surgical procedure Onset Date: 11/15/15 Status: Chronic Brief History of Present Illness: Patient is an office patient of [place]. She suffers from dementia, uncontrolled dm2, hypothyroidism ckd stage 4. She was going to Dr. Kruse for a stress test. Was found to be in Afib with an irregular rhythm. Was sent to the ER. She had an elevated sugar and a HB of 6.5 Was admitted. The patient is in bed comfortably. She has no no complaints. She reports no melena or hemotchezia. She has been eating well. However has been loosing weight. Her sugars have been variable. from the 100's to the 400's recently Hospital Course: Patient was admitted for afib. Loaded on amiodarone. She was rate controlled. She was anemic. given 1 unit of prbc. She was stable hb at 8. The patient was seen by Dr. Lombardi and Dr. Lydia forrest for out patient egd. She wanted to go home. We sent her home the afternoon on 03/29 Vital Signs/Physical Exam: Temp Pulse Resp BP Pulse Ox 98.1 F 58 16 164/76 H 95 03/29/23 16:00 03/29/23 16:00 03/29/23 16:00 03/29/23 16:00 03/29/23 16:00 General: Alert, In no apparent distress HEENT: Atraumatic, PERRLA, EOMI Neck: Supple, JVD not distended Respiratory: Clear to auscultation bilaterally, Normal air movement Cardiovascular: Regular rate/rhythm, Normal S1 S2 Gastrointestinal: Normal bowel sounds, No tenderness Musculoskeletal: No tenderness Integumentary: No rashes Neurological: Normal speech, Normal tone, Normal affect Lymphatics: No axilla or inguinal lymphadenopathy Laboratory Data at Discharge: WBC 7.70 thou/uL (4.3-10.9) 03/29/23 16:32 Hgb 8.0 g/dL (12.0-15.0) L 03/29/23 16:32 Hct 25.7 % (36.0-45.0) L 03/29/23 16:32 Plt Count 206 thou/uL (152-406) 03/29/23 16:32 Sodium 132 mEq/L (136-145) L 03/29/23 02:11 Potassium 4.1 mEq/L (3.5-5.1) D 03/29/23 02:11 BUN 53 mg/dL (7-18) H 03/29/23 02:11 Creatinine 2.12 mg/dL (0.55-1.02) H 03/29/23 02:11 Glucose 74 mg/dL (74-106) 03/29/23 02:11 Magnesium 1.7 mg/dL (1.6-2.4) 03/28/23 12:59 Total Bilirubin 0.5 mg/dL (0.2-1.0) 03/29/23 02:11 AST 48 U/L (15-37) H 03/29/23 02:11 ALT 44 U/L (13-56) 03/29/23 02:11 Alkaline Phosphatase 138 U/L (45-117) H D 03/29/23 02:11 Home Medications: Aspirin [Aspirin EC 81 MG] 81 mg PO DAILY 12/14/21 Atorvastatin Calcium 40 mg PO BEDTIME 12/14/21 Cholecalciferol (Vitamin D3) [Vitamin D 1000 Iu Tab] 1,000 unit PO DAILY 12/14/21 Clopidogrel Bisulfate [Plavix] 75 mg PO DAILY 12/14/21 Levothyroxine [Synthroid] 88 mcg PO [id number] 12/14/21 Memantine HCl 5 mg PO DAILY 12/14/21 Metoprolol Tartrate 25 mg PO BID 12/14/21 Montelukast [Singulair] 10 mg PO DAILY 12/14/21 Telmisartan 40 mg PO DAILY 12/14/21 Fluticasone [Flonase 50MCG Nasal [place]*] 1 spray IH PRN PRN 12/17/21 Fluticasone/Salmeterol [Advair Hfa 45-21 Mcg Inhaler] 1 puff IH BID 12/17/21 Albuterol Sulfate [Albuterol Sulfate Hfa] 1 puff IH Q6H PRN 03/28/23 Insulin Degludec [Tresiba Flextouch U-100] 32 unit SQ DAILY 03/28/23 Mecobalamin [B12 Active] 1 tab PO DAILY 03/28/23 Amiodarone HCl [Cordarone*] 200 mg PO BID 30 Days #60 tab 03/29/23 New Medications: Amiodarone HCl [Cordarone*] 200 mg PO BID 30 Days #60 tab Diet: ADA Activity: Ad nel Followup: Valeriano Lombardi MD [ACTIVE - CAN ADMIT] - 1-2 Weeks (call to schedule an appointment) Kapil Servin MD [Primary Care Provider] - 1 Week (call to schedule an a ppointment) Milton Freeman MD [ACTIVE - CAN ADMIT] - 1-2 Weeks (call to schedule an appointment) Physician Review: Patient Assessed, Agree with Above Assessment and Plan Time spent managing pt's care (in minutes): 30
== END 2023-03-29 17:40 | disposition home or self-care (01) ==
LOC: ER 11:45 → ERHOLD 14:44 → 2ND 15:39
PROVIDERS: ADMIT Internal Medicine; ATTEND Internal Medicine
DX: I48.0 Paroxysmal atrial fibrillation (principal); D64.9 Anemia, unspecified; N18.30 Chronic kidney disease, stage 3 unspecified; E03.9 Hypothyroidism, unspecified; E11.9 Type 2 diabetes mellitus without complications; Z79.4 Long term (current) use of insulin; F03.90 Unspecified dementia, unspecified severity, without behavioral disturbance, psychotic disturbance, mood disturbance, and anxiety; I10 Essential (primary) hypertension; E78.5 Hyperlipidemia, unspecified; Z88.2 Allergy status to sulfonamides
CPT/HCPCS: 96365; 93005; 87088; 85025 ×3; 81001; 87086; 36415 ×2; 86900; 83735; 86850; 85044 ×2; 86901; 82947 ×6; 86920; 84443; 83036; 84484 ×4; 82728; 82607; 83540; 80053 ×2; 83880; 84466; 82668; 71045; 96372; 99285; J1815 ×3; J0360; J0282; P9016; J7060; J7050; G0378

== ENCOUNTER 2023-06-09 10:45 | Inpatient (IN) | payer OTHER ==
--- OUTSIDE RECORDS SUMMARY | 2023-06-09 10:53 | XMS REPORT | Continuity of Care Document ---
:1940 Author Organization [facility] t Address [address] [place] [address] [place] [address] Care Team Providers Name Role Phone Nroberto Diaz MD Primary Care Physician Luda Kruse Attending Clinician Unavailable LUDA KRUSE Attending Clinician Unavailable UNDEFINED Attending Clinician Unavailable Cristino Rodriguez Attending Clinician Unavailable Norberto James Attending Clinician Unavailable LISETH PAPPAS Attending Clinician Unavailable MD JONNY AREVALO Attending Clinician Unavailable LISS LINARES Attending Clinician Unavailable Kapil Servin [...] (chronic nce 3-22 [facility] obstruct[facility] obstructiv 00:[facility]: Me dical e e 00 Center pulmonary pulmonary disease) disease) HTN HTN Disease Recurre [facility] (hypertens (hypertens nce 3-22 [facility] kes ion) ion) 00:00: Medical 00 Center CAD CAD Disease Active [facility] (coronary (coronary 3-22 [facility] artery artery 00:00: Medical disease) disease) 00 Center TIA TIA Disease Active [facility] (transient (transient 3-06 st ischemic ischemic 00:00: Hospit a attack) attack) 00 l Allergies, Adverse Reactions, Alerts Allergy Allergy Status Severity Reaction(s) Onset Inactive Treating Comm ents Source Name Type Date Date Clinician Sulfa DA Active [facility] (Sulf[place] 4-12 [place] mide 00:00: d Antibiot 00 Medical ics) [place] Sulfa DA Active [facility] (Sulfona 4-12 [place] [facility] 00:00: d Antibiot 00 Medical ics) [place] Baclofen Propensi Active Hallucinatio [facility] ty to ns 3-06 st adverse 00:00: Hospita reaction 00 l s to drug Sulfa Propensi Active GI nausea [facility] (Sulfona ty to Intolerance 3-06 st mide adverse 00:00: Hospita Antibiot reaction 00 l ics) s to drug Sulfa Propensi Active Feeling [facility] (Sulfona ty to 2-12 [facility] adverse 00:00: malaise Medical Antibiot reaction 00 Center ics) s SULFA Allergy Active [facility] (SULFONA 2-12 MIDE 00:00: ANTIBIOT 00 ICS) Social History Social Habit Start Date Stop Date Quantity Comments Source Gender identity [facility] Sexual orientation [facility] SDOH [facility] Alcohol Binge Medical [facility] History SDOH [facility] Alcohol Std Drinks Medica l Center Alcohol intake 2021-02-04 2021-02-[address] [facility] 00:00:00 00:00:00 non-drinker of Medical Ce nter alcohol (finding) History of Social 2021-01-19 2021-01-[address] function 00:00:00 00:00:00 Hospital Tobacco use and 2021-01-15 2021-01-15 Smokeless [facility] 00:00:00 00:00:00 tobacco non-user Hospital History SDOH 2018-12-24 2018-12-[address] [facility] Alcohol Frequency 00:00:00 00:00:00 [facility] History of tobacco 1967-11-[address] [facility] use 00:00:00 [facility] Sex Assigned At [address] Mayra kes 00:00:00 00:00:00 [facility] Smoking Status Start Date Stop Date Source Never smoked tobacco [facility] Ex-smoker 2018-12-24 00:00:00 2018-12-24 00:00:[address] [facility] Medications Ordered Filled Start Stop Current Ordering [...] 32 usly Center Units/mL daily. syringe levothyroxi 2021-0 Yes 88ug Take [address] ne 3-29 mcg by [facility] (SYNTHROID, 20:24: mouth Medic al LEVOTHROID) 32 Every Center 88 MCG morning on tablet an empty stomach. NIFEdipine Yes 60mg QD Take [address] (ADALAT CC) 3-29 by mouth Luke s 30 MG 24 hr 20:24: daily. Medi moriah tablet 32 Center sodium Yes 1{tbl} Q.[id number] Take [address] bicarbonate 3-29 [id number] tablet by [facility] 650 MG 20:24: 3D mouth 3 Medical tablet 32 (three) Center times daily. apixaban Yes 2.5mg Q.5D Take 2.5 [...] moriah tablet 32 Center sodium Yes 1{tbl} Q.[id number] Take [address] bicarbonate 3-29 [id number] tablet by [facility] 650 MG 20:24: 3D mouth 3 Medical tablet 32 (three) Center times daily. ticagrelor Yes 90mg Q.5D Take 1 [facility] (BRILINTA) 3-29 tablet (90 Melissa es 90 mg Tab 00:00: mg total) Med ical tablet 00 by mouth 2 Center (two) times daily. ticagrelor 2020-0 Yes 90mg Q.5D Take 1 [facility] (BRILINTA) 3-29 tablet (90 Melissa es 90 mg Tab 00:00: mg total) Med ical tablet 00 by mouth 2 Center (two) times daily. insulin 2020-0 Yes 2U Q.[id number] Inject 2 [facility]i lispro 3-[id number] (HumaLOG 00:00: 3D under the Hosp constantin KwikPen 00 skin 3 l Insulin) (three) 100 unit/mL times a injection day before pen meals. SITagliptin 2020-0 Yes 25mg QD Take 1 Meth julianna (JANUVIA) 3-12 tablet (25 st 25 MG 00:00: mg total) Hospita tablet 00 by mouth l daily. insulin 2020-0 Yes 2U Q.[id number] Inject 2 [facility] lispro 3-[id number] (HumaLOG 00:00: 3D under the Hosp constantin KwikPen 00 skin 3 l Insulin) (three) 100 unit/mL times a injection day before pen meals. SITagliptin 2020-0 Yes 25mg QD Take 1 Meth julianna (JANUVIA) 3-12 tablet (25 st 25 MG 00:00: mg total) Hospita tablet 00 by mouth l daily. cephalexin 2020-0 Yes 250mg QD Take 250 Me thodi (KEFLEX) 3-[address] 250 MG 19:51: mouth Hospita capsule 08 daily. l roasterman therapy for UTI levothyroxi 2020-0 Yes 88ug QD Take 88 Met hodi ne 3-[address] (SYNTHROID) 19:51: mouth Hospi ta 88 mcg 08 daily. l tablet cephalexin 2020-0 Yes 250mg QD Take 250 Me thodi (KEFLEX) 3-[address] 250 MG 19:51: mouth Hospita capsule 08 daily. l assisted therapy for UTI levothyroxi 2020-0 Yes 88ug QD Take 88 Met hodi ne 3-[address] (SYNTHROID) 19:51: mouth Hospi ta 88 mcg 08 daily. l tablet insulin 2020-0 Yes 20U QD Inject 20 Metho di detemir 3-[address] U-100 00:00: under the Hospita (LEVEMIR) 00 skin l 100 unit/mL daily. injection insulin Yes 20U QD Inject 20 Metho di detemir 3-[address] U-100 00:00: under the Hospita (LEVEMIR) 00 skin l 100 unit/mL daily. injection Vital Signs Vital Name Observation Time Observation [...] Procedure Date / Time Performed Performing Clinician [facility] neetu [id number] 2021-02-23 00:00:00 LUIS ALFREDO Chu [facility] Plan of Care Planned Activity Planned Date Details Comments Source Future Scheduled 2023-07-[address] [facility] Test 00:00:00 (Season Ended) [code = Medic dc Center INFLUENZA VACCINE (Season Ended)] Future Scheduled 2023-07-13 Influenza Vaccine (#1) [facility] Test 00:00:00 [code = Influenza Medical Ce nter Vaccine (#1)] Future Scheduled 2023-04-26 COVID-19 VACCINE (#1) [facility] Test 18:54:43 [code = COVID-19 VACCINE (#1)] Future Scheduled 2023-04-26 65+ PNEUMOCOCCAL [facility] Test 18:54:43 VACCINE (1 - PCV) [code = 65+ PNEUMOCOCCAL VACCINE (1 - PCV)] Future Scheduled 2023-04-26 SHINGLES VACCINES (1 Met [facility] Test 18:54:43 of 2) [code = SHINGLES VACCINES (1 of 2)] Future Scheduled 2023-04-26 INFLUENZA VACCINE Method ist Hospital Test 18:54:43 [code = INFLUENZA VACCINE] Future Scheduled 2023-03-28 COVID[facility]19 [facility]INE (#[facility] 12:13:27 [code = COVID-19 VACCINE (#1)] Future Scheduled 2023-03-28 65+ [facility]UMOCOCCAL [facility] Test 12:13:27 VACCINE (1 - PCV) [code = 65+ PNEUMOCOCCAL VACCINE (1 - PCV)] Future Scheduled 2023-03-28 SHINGLES VACCINES (1 [facility] Test 12:13:27 of 2) [code = [...] RISK Medical C enter SCREENING] Future Scheduled 2022-11-[address] [facility] Test 00:00:00 (12+) [code = Medical Center DEPRESSION SCREENING (12+)] Future Scheduled 2022-11-12 FALLS RISK SCREENING [facility] Test 00:00:00 [code = FALLS RISK Medical C enter SCREENING] Future Scheduled 2022-01-16 Urine screening for [facility] Test 00:00:00 protein (procedure) Medical Center [code = 533890993] Future Scheduled 2022-01-16 Urine screening for [facility] Test 00:00:00 protein (procedure) Medical Center [code = 185768908] Future Scheduled 2021-11-[address] [facility] Test 00:00:00 WELLNESS (YEAR 2 or Medical Center FIRST YEAR if no IPPE) [code = MEDICARE ANNUAL WELLNESS (YEAR 2 or FIRST YEAR if no IPPE)] Future Scheduled 2021-11-[address] [facility] Test 00:00:00 WELLNESS (YEAR 2 or Medical Center FIRST YEAR if no IPPE) [code = MEDICARE ANNUAL WELLNESS (YEAR 2 or FIRST YEAR if no IPPE)] Future Scheduled 2021-05-[address] [facility] Test 00:00:00 measurement Medical Center (procedure) [code = 85657456] Future Scheduled 2021-05-[address] [facility] Test 00:00:00 measurement Medical Center (procedure) [code = 83680573] Future Scheduled 1989 SHINGLES VACCINES ([address] [facility] Test 00:00:00 of 2) [code = SHINGLES Medic al Center VACCINES (1 of 2)] Future Scheduled 1989 SHINGLES VACCINES ([address] [facility] Test 00:00:00 of 2) [code = SHINGLES Medic al Center VACCINES (1 of 2)] Future Scheduled 1958 DTAP/TDAP/TD VACCINES [facility] Test 00:00:00 (1 - Tdap) [code = Medical C enter DTAP/TDAP/TD VACCINES (1 - Tdap)] Future Scheduled 1958 DTAP/TDAP/TD VACCINES [facility] 00:00:00 (1 - Tdap) [code = Medical C enter DTAP/TDAP/TD VACCINES (1 - Tdap)] Future Scheduled [address] [facility] Test 00:00:00 Counseling and Medical Cente r Screening (12+) [code = Tobacco Cessation Counseling and Screening (12+)] Future Scheduled [address] [facility] Test 00:00:00 Counseling and Medical Cente r Screening (12+) [code = Tobacco Cessation Counseling and Screening (12+)] Future Scheduled [address] EYE EXAM [facility] Test 00:00:00 [code = DIABETIC EYE Medical Center EXAM] Future Scheduled [address] [facility] Test 00:00:00 examination Medical Center (regime/therapy) [code = 424429771] Future Scheduled [address] EYE EXAM [facility] Test 00:00:00 [code = DIABETIC EYE Medical Center EXAM] Future Scheduled [address] [facility] Test 00:00:00 examination Medical Center (regime/therapy) [code = 649257130] Future Scheduled 1945 PNEUMOCOCCAL 65+ YRS [facility] Test 00:00:00 (1 - PCV) [code = Medical Ce nter PNEUMOCOCCAL 65+ YRS (1 - PCV)] Future Scheduled 1945 PNEUMOCOCCAL 65+ YRS [facility] Test 00:00:00 (1 - PCV) [code = Medical Ce nter PNEUMOCOCCAL 65+ YRS (1 - PCV)] Future Scheduled 1940-03-23 COVID-19 VACCINE (#1) [facility] 00:00:00 [code = COVID-[address] VACCINE (#1)] Future Scheduled 1940-03-23 COVID-19 VACCINE (#1) [facility] 00:00:00 [code = COVID-[address] VACCINE (#1)] Future Scheduled 1940 DXA SCAN [code = DXA [facility] Test 00:00:00 SCAN] [facility] Future Scheduled 1939 DXA SCAN [code = DXA [facility] Test 00:00:00 SCAN] [facility] Encounters Start End Encounter Admission Attending Care Care Encounter Source Date/Time Date/Time Type Type Clinicians Facility Department ID 2021-04-12 [id number] 11:00:00 Luda 17 [facility] 2021-01-31 Inpatient ER AIXA, [facility] Cardiology [id number] SLE 18:45:00 LUDA 2021-04-09 2021-04-09 Outpatient UNDEFINED HCAPM LABO [id number] [facility] 10:39:00 10:39:00 92 [facility] 2021-04-08 2021-04-08 Outpatient BERTIN Rodriguez [facility] LABO [id number] [facility] 12:08:00 12:08:00 Cristino 76 [facility] 2021-02-23 2021-02-25 Inpatient BERTIN James [facility] INTE.02 [id number] [facility] 13:14:00 14:49:00 Norberto 80 [facility] 2021-01-15 2021-01-20 Inpatient [facility] [id number] [place] 00:00:00 00:00:00 SAHITYA [address] Results Test Description Test Time Test Comments Results Result Comments Source ANTINUCLEAR ANTIBODIES TITER 2021-04-13 13:12:00 Test Item Value Reference Range Interpretation Comme nts KAMILA SCREEN (test code = Negative See_Comment Neg ative <1:80 Borderline 1:80 ANASCR) Positive >1:80P erformed At: [facility] [address] [id number] Gama Rothman MD Ph:[phone] [Automated message] The sy stem which generated this result tra nsmitted reference range: (). The reference range was not used to int erpret this result as normal/abnor mal. FAX:[phone] FAX:[phone] RFLX MICR CULT IF [id number] 20:07:00 Test Item Value Reference Range Interpretation [...] code = 0-5 /HPF NONE SEEN SQU) FAX:[phone]:[phone] PROT ELECTROPHORESIS [id number] 20:07:00 Test Item Value Reference Range Interpretation Comments UR TOTAL PROTEIN 261.4 mg/dL Not Estab. Results con firmed (test code = ondilution. PROTEU) UR ALBUMIN % (test 42.0 % See_Comment [Automat ed message] code = ALBEU%) The system LVL6 generated this result transmitted ref erence range: (). The reference range was not used to int erpret this result as normal/abnormal . UR 8.6 % See_Comment [Automated [employer]] HFTXF-2-ABIKEBRY % The syste m which (test code = generated this result A1GU%) transmitted ref erence range: (). The reference range was not used to int erpret this result as normal/abnormal . UR 12.4 % See_Comment [Automated [employer]] DDNQO-1-NPHOVLVA % The syste m which (test code [...] message] % (test code = The system [employer] GGU%) generated this result transmitted ref erence range: (). The reference range was not used to int erpret this result as normal/abnormal . M SPIKE % (test Not Observed % Not Observed code = MSPIKE%) FAX:[phone]:[phone] MICROALBUMIN/CREAT [id number] 20:07:00 Test Item Value Reference Range Interpretation [...] increa sed: >300Performed A t: HD [facility] [address] [place], [place] [address]Wgonb Gama Rothman MD Ph:[phone] FAX:[phone]:[phone] METABOLIC [id number] 20:07:00 Test Item Value Reference Range Interpretation [...] 20-125 H TOTAL (test code = ALKP) FAX:[phone] FAX:[phone] ELECTROPHORESIS [id number] 20:07:00 Test Item Value Reference Range Interpretation Comments TOTAL PROTEIN 8.0 g/dL 6.0-8.5 (test code = PROTE) ALBUMIN (test 3.2 g/dL 2.9-4.4 code = ALBE) YOZCT-5-FKPLQME 0.3 g/dL 0.0-0.4 N (test code = A1G) SRGAJ-4-VAUNJDG 1.3 g/dL 0.4-1.0 A N (test code [...] chain quantitation.Pe rformed At: HD [facility] [address] [place], [place] [id number] Kyle L MD Ph:[phone] rformed At: DA [facility] [address] [facility] [address] [place], [place] [id number] h CN MD Ph:[phone] [ Automated message] The sy stem which generated this result transmitted ref erence range: (). The reference range was not u sed to interpret this result as normal/abnormal . FAX:[phone] FAX:[phone] 20:07:00 Test Item Value Reference Range Interpretation Comments PHOSPHOROUS (test code = PHOS) 3.9 MG/DL 2.5-4.9 N FAX:[phone] FAX:[phone] [id number] 20:07:00 Test Item Value Reference Range Interpretation Comments URIC ACID (test code = URIC) 9.0 mg/dL 2.6-7.2 H FAX:[phone] FAX:[phone] 20:07:00 Test Item Value Reference Range Interpretation Comments MAGNESIUM (test code = MAG) 1.53 mg/dL 1.80-2.40 L FAX:[phone] FAX:[phone] PRO-BRAIN NATRIURETIC [id number] 20:07:00 Test Item Value Reference Range Interpretation Comments NT PRO-BRAIN NATRIURETIC PEPTI 4512 PG/ML 0-100 H (test code = PROBNP) FAX:[phone] FAX:[phone] A,G [id number] 20:07:00 Test Item Value Reference Range Interpretation Comments IMMUNOGLOBULIN G (test 1712 mg/dL 586-1602 A code = IGG) IMMUNOGLOBULIN M (test 52 mg/dL 26-217 Perfo rmed At: HD code = IGM) [facility] [id number] Gama Rothman MD Ph:[phone] IMMUNOGLOBULIN A (test 663 mg/dL 64-422 A code = IGA) FAX:[phone] FAX:[phone] D [id number] 20:07:00 Test Item Value Reference Range Interpretation Comments VITAMIN D 25-HYDROXY (test code = 17.4 ng/mL 30-100 L VITD25) FAX:[phone] FAX:[phone] RFLX MICR CULT IF [id number] 11:08:00 Test Item Value Reference Range Interpretation [...] code = 0-5 /HPF NONE SEEN SQU) FAX:[phone]:[phone] PROT ELECTROPHORESIS [id number] 11:08:00 Test Item Value Reference Range Interpretation Comments UR TOTAL PROTEIN (test code = PROTEU) UR ALBUMIN % (test code = ALBEU%) UR QXNNZ-3-XVTTHEMT % (test code = A1GU%) UR UZCEE-5-CQZATIWK % (test code = A2GU%) UR BETA GLOBULIN % (test code = BGU%) UR GAMMA GLOBULIN % (test code = GGU%) M SPIKE % (test code = MSPIKE%) FAX:[phone]:[phone] MICROALBUMIN/CREAT [id number] 11:08:00 Test Item Value Reference Range Interpretation Comments UR CREATININE (test 94.8 mg/dL Not Estab. code = CREATE) UR MICROALBUMIN QUAL 1439.2 ug/mL Not Estab. Results confirmed (test code = MICALBQL) ondil ution. UR MICROALB/CREAT 1518 0-29 H INFCE Resu lt Units: RATIO (test code = mg/g crea t Normal: MICALB:CRE) 0 - 29 Moderat gary increased: 30 - 300 Severely increa sed: >300Performe d At: HD [facility] [address] [place], [place] [address]Unajh Gama Rothman MD Ph:[phone] FAX:[phone]:[phone] METABOLIC [id number] 10:08:00 Test Item Value Reference Range Interpretation [...] 20-125 H TOTAL (test code = ALKP) FAX:[phone] FAX:[phone] ELECTROPHORESIS [id number] 10:08:00 Test Item Value Reference Range Interpretation Comments TOTAL PROTEIN (test code = PROTE) ALBUMIN (test code = ALBE) WCRHX-4-DCOQWTVN (test code = A1G) BVARS-7-KIWVJCBV (test code = A2G) BETA GLOBULIN (test code = BG) GAMMA GLOBULIN (test code = GG) M-SPIKE,SERUM (test code = MSPIKES) GLOBULIN ELECT (test code = GLOBE) ALBUMIN/GLOBULIN RATIO (test code = AGE) PROT.ELECTROPH.INTERPRETATION (test code = ELEINT) FAX:[phone] FAX:[phone] 10:08:00 Test Item Value Reference Range Interpretation Comments PHOSPHOROUS (test code = PHOS) 3.9 MG/DL 2.5-4.9 N FAX:[phone] FAX:[phone] [id number] 10:08:00 Test Item Value Reference Range Interpretation Comments URIC ACID (test code = URIC) 9.0 mg/dL 2.6-7.2 H FAX:[phone] FAX:[phone] 10:08:00 Test Item Value Reference Range Interpretation Comments MAGNESIUM (test code = MAG) 1.53 mg/dL 1.80-2.40 L FAX:[phone] FAX:[phone] PRO-BRAIN NATRIURETIC [id number] 10:08:00 Test Item Value Reference Range Interpretation Comments NT PRO-BRAIN NATRIURETIC PEPTI 4512 PG/ML 0-100 H (test code = PROBNP) FAX:[phone] FAX:[phone] A,G [id number] 10:08:00 Test Item Value Reference Range Interpretation Comments IMMUNOGLOBULIN G (test 1712 mg/dL 586-1602 A code = IGG) IMMUNOGLOBULIN M (test 52 mg/dL 26-217 Perfo rmed At: HD code = IGM) [facility] [address] [id number] Gama Rothman MD Ph:[phone] IMMUNOGLOBULIN A (test 663 mg/dL 64-422 A code = IGA) FAX:[phone] FAX:[phone] D [id number] 10:08:00 Test Item Value Reference Range Interpretation Comments VITAMIN D 25-HYDROXY (test code = 17.4 ng/mL 30-100 L VITD25) FAX:[phone] FAX:[phone] PRO-BRAIN NATRIURETIC [id number] 13:38:00 Test Item Value Reference Range Interpretation Comments NT PRO-BRAIN NATRIURETIC PEPTI 4512 PG/ML 0-100 H (test code = PROBNP) FAX:[phone] FAX:[phone] METABOLIC [id number] 13:38:00 Test Item Value Reference Range Interpretation [...] 20-125 H TOTAL (test code = ALKP) FAX:[phone] FAX:[phone] ELECTROPHORESIS [id number] 13:38:00 Test Item Value Reference Range Interpretation Comments TOTAL PROTEIN (test code = PROTE) ALBUMIN (test code = ALBE) BJILE-4-SAPDPNJF (test code = A1G) XQIEQ-8-SICFYHWW (test code = A2G) BETA GLOBULIN (test code = BG) GAMMA GLOBULIN (test code = GG) M-SPIKE,SERUM (test code = MSPIKES) GLOBULIN ELECT (test code = GLOBE) ALBUMIN/GLOBULIN RATIO (test code = AGE) PROT.ELECTROPH.INTERPRETATION (test code = ELEINT) FAX:[phone] FAX:[phone] 13:38:00 Test Item Value Reference Range Interpretation Comments PHOSPHOROUS (test code = PHOS) 3.9 MG/DL 2.5-4.9 N FAX:[phone] FAX:[phone] [id number] 13:38:00 Test Item Value Reference Range Interpretation Comments URIC ACID (test code = URIC) 9.0 mg/dL 2.6-7.2 H FAX:[phone] FAX:[phone] 13:38:00 Test Item Value Reference Range Interpretation Comments MAGNESIUM (test code = MAG) 1.53 mg/dL 1.80-2.40 L FAX:[phone] FAX:[phone] PRO-BRAIN NATRIURETIC [id number] 13:38:00 Test Item Value Reference Range Interpretation Comments NT PRO-BRAIN NATRIURETIC PEPTI 4512 PG/ML 0-100 H (test code = PROBNP) FAX:[phone] FAX:[phone] A,G [id number] 13:38:00 Test Item Value Reference Range Interpretation Comments IMMUNOGLOBULIN G (test code = IGG) IMMUNOGLOBULIN M (test code = IGM) IMMUNOGLOBULIN A (test code = IGA) FAX:[phone] FAX:[phone] D [id number] 13:38:00 Test Item Value Reference Range Interpretation Comments VITAMIN D 25-HYDROXY (test code = 17.4 ng/mL 30-100 L VITD25) FAX:[phone] FAX:[phone] Coronavirus 2019 [id number] 06:58:00 Test Item Value Reference Range Interpretation [...] for the identification of SARS-CoV-2 RNA usingthe [employer] M2000 Sy stem under the FDA Emergen cy UseAuthorizatio n. The testing is perf ormed by personneltraine d in the procedures for the [employer] M2000 molecular diagnostic SARS-CoV-2 assa y in vitro. HGBA1C%2021-04-08 14:21:00 Test Item Value Reference Range Interpretation Comments HGBA1C% (test code = HGBA1C%) 7.8 %A1C 4.8-6.0 H FAX:[phone] METABOLIC [id number] 13:51:00 Test Item Value Reference Range Interpretation [...] 20-125 H TOTAL (test code = ALKP) FAX:[phone] ELECTROPHORESIS [id number] 13:51:00 Test Item Value Reference Range Interpretation Comments TOTAL PROTEIN (test code = PROTE) ALBUMIN (test code = ALBE) UIABP-9-BVRYFXGG (test code = A1G) QDKLD-2-ACMZWIQF (test code = A2G) BETA GLOBULIN (test code = BG) GAMMA GLOBULIN (test code = GG) M-SPIKE,SERUM (test code = MSPIKES) GLOBULIN ELECT (test code = GLOBE) ALBUMIN/GLOBULIN RATIO (test code = AGE) PROT.ELECTROPH.INTERPRETATION (test code = ELEINT) FAX:[phone] 13:51:00 Test Item Value Reference Range Interpretation Comments PHOSPHOROUS (test code = PHOS) 3.9 MG/DL 2.5-4.9 N FAX:[phone] [id number] 13:51:00 Test Item Value Reference Range Interpretation Comments URIC ACID (test code = URIC) 9.0 mg/dL 2.6-7.2 H FAX:[phone] 13:51:00 Test Item Value Reference Range Interpretation Comments MAGNESIUM (test code = MAG) 1.53 mg/dL 1.80-2.40 L FAX:[phone] PRO-BRAIN NATRIURETIC [id number] 13:51:00 Test Item Value Reference Range Interpretation Comments NT PRO-BRAIN NATRIURETIC PEPTI (test code = PROBNP) FAX:[phone] [id number] 13:51:00 Test Item Value Reference Range Interpretation Comments IMMUNOGLOBULIN G (test code = IGG) FAX:[phone] [id number] 13:51:00 Test Item Value Reference Range Interpretation Comments IMMUNOGLOBULIN M (test code = IGM) FAX:[phone] 13:51:00 Test Item Value Reference Range Interpretation Comments IMMUNOGLOBULIN A (test code = IGA) FAX:[phone] 13:51:00 Test Item Value Reference Range Interpretation Comments VITAMIN D 25-HYDROXY (test code = 17.4 ng/mL 30-100 L VITD25) FAX:[phone] RFLX MICR CULT IF [id number] 13:41:00 Test Item Value Reference Range Interpretation [...] code = 0-5 /HPF NONE SEEN SQU) FAX:[phone] PROT ELECTROPHORESIS [id number] 13:41:00 Test Item Value Reference Range Interpretation Comments UR TOTAL PROTEIN (test code = PROTEU) UR ALBUMIN % (test code = ALBEU%) UR VUVHX-3-PYKPWUIL % (test code = A1GU%) UR MQTJA-4-TNOBKTHT % (test code = A2GU%) UR BETA GLOBULIN % (test code = BGU%) UR GAMMA GLOBULIN % (test code = GGU%) M SPIKE % (test code = MSPIKE%) FAX:[phone] MICROALBUMIN/CREAT [id number] 13:41:00 Test Item Value Reference Range Interpretation Comments UR CREATININE (test code = CREATE) UR MICROALBUMIN QUAL (test code = MICALBQL) UR MICROALB/CREAT RATIO (test code mcg/mgCr = MICALB:CRE) FAX:[phone] METABOLIC [id number] 13:39:00 Test Item Value Reference Range Interpretation [...] 9.5 mg/dL 8.0-10.5 N CA) PTH INTACT [id number] 13:24:00 Test Item Value Reference Range Interpretation Comments PARATHYROID HORMONE INTACT (test 162.2 pg/mL 14.0-72.0 H code = PARAI) FAX:[id number] [id number] 13:12:00 Test Item Value Reference Range Interpretation [...] (to prevent recurrent infar ct). CBC W/AUTO [id number] 13:06:00 Test Item Value Reference Range Interpretation [...] (test code NO = MDIFF) PROTEIN ELECTROPHORESIS [id number] 13:09:00 Test Item Value Reference Range Interpretation Comments TOTAL PROTEIN 7.0 g/dL 6.0-8.5 (test code = PROTE) ALBUMIN (test 2.9 g/dL 2.9-4.4 code = ALBE) DDWKQ-1-AVEMRXUC 0.4 g/dL 0.0-0.4 (test code = A1G) DQJHZ-5-FOUTUDRB 1.1 g/dL 0.4-1.0 A (test code = [...] otein is not apparent.Perfor med At: [facility] [address]ifhwqg[address] [place], [place] [id number] Kyle L MD Ph:[phone] rform ed At: DA [facility] rp Euzfbc0456 [facility] [address] [place], [place] [id number] h CN MD Ph:[phone] [Automated mess age] The system [employer] generated this result transmit rosalia reference range : (). The reference r neyda was not used to interpret this result as normal/abnormal . IMMUNOELECTROPHORESIS [id number] 13:09:00 Test Item Value Reference Range Interpretation Comments IMMUNOGLOBULIN A (test 536 mg/dL 64-422 A code = AIDEN) IMMUNOGLOBULIN G (test 1323 mg/dL 586-1602 code = IMMG) IMMUNOGLOBULIN M (test 33 mg/dL 26-217 Perfo rmed At: DA code = IMMM) [facility] [place] [facility] [address] [place], [place] [id number] h CN MD Ph:[phone] rform ed At: [facility] DillonUejzrub[address] [place], [place] [id number] Kyle L MD Ph:[phone] IMMUNOFIXATION SERUM See_Comment A Polyclo nal increase (test code = IMMFIXS) detect ed in one or moreimmunoglobu penny. [Automated mess age] The system [employer] generated this result transmit rosalia reference range : (). The reference r neyda was not used to interpret this result as normal/abnormal . FREE KAPPA + LAMBDA LT [id number] 13:09:00 Test Item Value Reference Range Interpretation Comments FREE KAPPA LT CHAINS 127.9 mg/L 3.3-19.4 A (test code = KAPPAFR) FREE LAMBDA LT 90.1 mg/L 5.7-26.3 A CHAINS (test code = LAMBDAFR) FREE KAPPA/LAMBDA 1.42 0.26-1.65 Performed At: DA RATIO (test code = [facility] D [id number] KAPFRLAMFR) [address] [place], [place] [id number] h CN MD Ph:[phone] PROTEIN ELECTROPHORESIS [id number] 12:09:00 Test Item Value Reference Range Interpretation Comments TOTAL PROTEIN (test code = PROTE) ALBUMIN (test code = ALBE) [id number]-7-[id number] (test code = A1G) YILWC-0-LIBBIVGE (test code = A2G) BETA GLOBULIN (test code = BG) GAMMA GLOBULIN (test code = GG) M-SPIKE,SERUM (test code = MSPIKES) GLOBULIN ELECT (test code = GLOBE) ALBUMIN/GLOBULIN RATIO (test code = AGE) PROT.ELECTROPH.INTERPRETATION (test code = ELEINT) IMMUNOELECTROPHORESIS [id number] 12:09:00 Test Item Value Reference Range Interpretation Comments IMMUNOGLOBULIN A (test 536 mg/dL 64-422 A code = AIDEN) IMMUNOGLOBULIN G (test 1323 mg/dL 586-1602 code = IMMG) IMMUNOGLOBULIN M (test 33 mg/dL 26-217 Perfo rmed At: DA code = IMMM) [facility] [place] [address] [address] [facility] [address] [place], [place] [id number] h CN MD Ph:[phone] rform ed At: [facility] [place] [address] [place], [place] [id number] Gama Rothman MD Ph:[phone] IMMUNOFIXATION SERUM See_Comment A Polyclo nal increase (test code = IMMFIXS) detect ed in one or moreimmunoglobu penny. [Automated mess age] The system [employer] generated this result transmit rosalia reference range : (). The reference r neyda was not used to interpret this result as normal/abnormal . FREE KAPPA + LAMBDA LT [id number] 12:09:00 Test Item Value Reference Range Interpretation Comments FREE KAPPA LT CHAINS 127.9 mg/L 3.3-19.4 A (test code = KAPPAFR) FREE LAMBDA LT 90.1 mg/L 5.7-26.3 A CHAINS (test code = LAMBDAFR) FREE KAPPA/LAMBDA 1.42 0.26-1.65 Performed At: DA RATIO (test code = [facility] D [id number] KAPFRLAMFR) [facility] [address] [place], [place] [id number] h CN MD Ph:[phone] PROTEIN ELECTROPHORESIS [id number] 17:08:00 Test Item Value Reference Range Interpretation Comments TOTAL PROTEIN (test code = PROTE) ALBUMIN (test code = ALBE) QHQEG-9-GVXILDDR (test code = A1G) FWWAO-9-INMHONUH (test code = A2G) BETA GLOBULIN (test code = BG) GAMMA GLOBULIN (test code = GG) M-SPIKE,SERUM (test code = MSPIKES) GLOBULIN ELECT (test code = GLOBE) ALBUMIN/GLOBULIN RATIO (test code = AGE) PROT.ELECTROPH.INTERPRETATION (test code = ELEINT) IMMUNOELECTROPHORESIS [id number] 17:08:00 Test Item Value Reference Range Interpretation Comments IMMUNOGLOBULIN A (test code = AIDEN) IMMUNOGLOBULIN G (test code = IMMG) IMMUNOGLOBULIN M (test code = IMMM) IMMUNOFIXATION SERUM (test code = IMMFIXS) FREE KAPPA + LAMBDA LT [id number] 17:08:00 Test Item Value Reference Range Interpretation Comments FREE KAPPA LT CHAINS 127.9 mg/L 3.3-19.4 A (test code = KAPPAFR) FREE LAMBDA LT 90.1 mg/L 5.7-26.3 A CHAINS (test code = LAMBDAFR) FREE KAPPA/LAMBDA 1.42 0.26-1.65 Performed At: DA RATIO (test code = [facility] D [id number] KAPFRLAMFR) [facility] [address] [place], [place] [id number] h FINN BRITT Ph:[phone] [id number] 13:19:00 Test Item Value Reference Range Interpretation Comments GLUBED (test code = 136 MG/DL 70-110 H Performe d by certified GLUBED) tie in machine operator at [facility] [id number] 11:13:00 Test Item Value Reference Range Interpretation Comments GLUBED (test code = 64 MG/DL 70-110 L Performe d by certified GLUBED) tie in machine operator at [facility] [id number] 08:45:00 Test Item Value Reference Range Interpretation Comments GLUBED (test code = 163 MG/DL 70-110 H Performe d by certified GLUBED) tie in machine operator at [facility] CBC W/AUTO [id number] 04:56:00 Test Item Value Reference Range Interpretation [...] code NO = MDIFF) POC ARTERIAL BLOOD [id number] 02:47:00 Test Item Value Reference Range Interpretation Comments POC ARTERIAL BLOOD GAS PH (test 7.436 7.35-7.45 N code = POCPHA) POC ARTERIAL BLOOD GAS PCO2 (test 36.8 mmHg 35.0-45 N code = YXFXJB6S) POC TCO2 ARTERIAL (test code = 25.9 POCTCO2) POC ARTERIAL BLOOD GAS PO2 (test 50.8 mmHg 80-100.0 L code = DYSMC2P) POC HCO3 ARTERIAL (test code = 24.8 MMOL/L 22.0-26.0 N QDRIEA2E) POC BASE EXCESS (test code = 0.6 MMOL/L -4.0-4.0 N POCBEA) POC O2 SATURATION (test code = 86.9 % 90-100 L POCO2S) ABG DELIVERY (test code = CHRISTINA) Cannula ABG PATIENT RESP RATE (test code 20 /MIN = RRPATA) ABG SITE (test code = SITEA) R Brach JENNIFER'S TEST (test code = ALLENS) Positive BASIC METABOLIC [id number] 02:47:00 Test Item Value Reference Range Interpretation Comments SODIUM (test code = NA/ABG) MEQ/L 134-147 POTASSIUM (test code = K/ABG) MEQ/L 3.4-5.0 CHLORIDE (test code = CL/ABG) MEQ/L 100-108 CREATININE ABG (test code = CREAABG) mg/dL 0.6-1.0 POC IONIZED CALCIUM (test code = MMOL/L 1.12-1.32 POCCA) POC GLUCOSE (test code = POCGLU) MG/DL 70-110 [id number] 02:47:00 Test Item Value Reference Range Interpretation Comments HEMOGLOBIN (test code = HGB/ABG) G/DL 11.0-15.0 [id number] 02:47:00 Test Item Value Reference Range Interpretation Comments HEMATOCRIT (test code = HCT/ABG) % 33.0-45.0 POC LACTIC [id number] 02:47:00 Test Item Value Reference Range Interpretation Comments POC LACTIC ACID (test code = POCLAC) mmol/l 0.9-1.7 POC ARTERIAL BLOOD [id number] 02:47:00 Test Item Value Reference Range Interpretation Comments POC ARTERIAL BLOOD GAS PH (test 7.436 7.35-7.45 N code = POCPHA) POC ARTERIAL BLOOD GAS PCO2 (test 36.8 mmHg 35.0-45 N code = KVNZSG9I) POC TCO2 ARTERIAL (test code = 25.9 POCTCO2) POC ARTERIAL BLOOD GAS PO2 (test 50.8 mmHg 80-100.0 L code = ISING5X) POC HCO3 ARTERIAL (test code = 24.8 MMOL/L 22.0-26.0 N LHWUMV7T) POC BASE EXCESS (test code = 0.6 MMOL/L -4.0-4.0 N POCBEA) POC O2 SATURATION (test code = 86.9 % 90-100 L POCO2S) ABG DELIVERY (test code = CHRISTINA) Cannula ABG PATIENT RESP RATE (test code 20 /MIN = RRPATA) ABG SITE (test code = SITEA) R Brach JENNIFER'S TEST (test code = ALLENS) Positive BASIC METABOLIC [id number] 02:47:00 Test Item Value Reference Range Interpretation Comments SODIUM (test code = NA/ABG) MEQ/L 134-147 POTASSIUM (test code = K/ABG) MEQ/L 3.4-5.0 CHLORIDE (test code = CL/ABG) MEQ/L 100-108 CREATININE ABG (test code = CREAABG) mg/dL 0.6-1.0 POC IONIZED CALCIUM (test code = MMOL/L 1.12-1.32 POCCA) POC GLUCOSE (test code = POCGLU) MG/DL 70-110 [id number] 02:47:00 Test Item Value Reference Range Interpretation Comments HEMOGLOBIN (test code = HGB/ABG) G/DL 11.0-15.0 [id number] 02:47:00 Test Item Value Reference Range Interpretation Comments HEMATOCRIT (test code = HCT/ABG) % 33.0-45.0 POC LACTIC [id number] 02:47:00 Test Item Value Reference Range Interpretation Comments POC LACTIC ACID (test code = 0.5 mmol/l 0.9-1.7 L POCLAC) POC ARTERIAL BLOOD [id number] 02:47:00 Test Item Value Reference Range Interpretation Comments POC ARTERIAL BLOOD GAS PH (test 7.436 7.35-7.45 N code = POCPHA) POC ARTERIAL BLOOD GAS PCO2 (test 36.8 mmHg 35.0-45 N code = VDSRJH0U) POC TCO2 ARTERIAL (test code = 25.9 POCTCO2) POC ARTERIAL BLOOD GAS PO2 (test 50.8 mmHg 80-100.0 L code = BYRMZ2C) POC HCO3 ARTERIAL (test code = 24.8 MMOL/L 22.0-26.0 N APEJVT1I) POC BASE EXCESS (test code = 0.6 MMOL/L -4.0-4.0 N POCBEA) POC O2 SATURATION (test code = 86.9 % 90-100 L POCO2S) ABG DELIVERY (test code = CHRISTINA) Cannula ABG PATIENT RESP RATE (test code 20 /MIN = RRPATA) ABG SITE (test code = SITEA) R Brach JENNIFER'S TEST (test code = ALLENS) Positive BASIC METABOLIC [id number] 02:47:00 Test Item Value Reference Range Interpretation [...] code = POCGLU) 168 MG/DL 70-110 H [id number] 02:47:00 Test Item Value Reference Range Interpretation Comments HEMOGLOBIN (test code = HGB/ABG) G/DL 11.0-15.0 [id number] 02:47:00 Test Item Value Reference Range Interpretation Comments HEMATOCRIT (test code = HCT/ABG) % 33.0-45.0 POC LACTIC [id number] 02:47:00 Test Item Value Reference Range Interpretation Comments POC LACTIC ACID (test code = 0.5 mmol/l 0.9-1.7 L POCLAC) POC ARTERIAL BLOOD [id number] 02:47:00 Test Item Value Reference Range Interpretation Comments POC ARTERIAL BLOOD GAS PH (test 7.436 7.35-7.45 N code = POCPHA) POC ARTERIAL BLOOD GAS PCO2 (test 36.8 mmHg 35.0-45 N code = USFGNP5P) POC TCO2 ARTERIAL (test code = 25.9 POCTCO2) POC ARTERIAL BLOOD GAS PO2 (test 50.8 mmHg 80-100.0 L code = ARCKM2B) POC HCO3 ARTERIAL (test code = 24.8 MMOL/L 22.0-26.0 N RRLZOL5C) POC BASE EXCESS (test code = 0.6 MMOL/L -4.0-4.0 N POCBEA) POC O2 SATURATION (test code = 86.9 % 90-100 L POCO2S) ABG DELIVERY (test code = CHRISTINA) Cannula ABG PATIENT RESP RATE (test code 20 /MIN = RRPATA) ABG SITE (test code = SITEA) R Brach JENNIFER'S TEST (test code = ALLENS) Positive BASIC METABOLIC [id number] 02:47:00 Test Item Value Reference Range Interpretation [...] code = POCGLU) 168 MG/DL 70-110 H [id number] 02:47:00 Test Item Value Reference Range Interpretation Comments HEMOGLOBIN (test code = HGB/ABG) 10.1 G/DL 11.0-15.0 L [id number] 02:47:00 Test Item Value Reference Range Interpretation Comments HEMATOCRIT (test code = HCT/ABG) % 33.0-45.0 POC LACTIC [id number] 02:47:00 Test Item Value Reference Range Interpretation Comments POC LACTIC ACID (test code = 0.5 mmol/l 0.9-1.7 L POCLAC) POC ARTERIAL BLOOD [id number] 02:47:00 Test Item Value Reference Range Interpretation Comments POC ARTERIAL BLOOD GAS PH (test 7.436 7.35-7.45 N code = POCPHA) POC ARTERIAL BLOOD GAS PCO2 (test 36.8 mmHg 35.0-45 N code = PADANB2D) POC TCO2 ARTERIAL (test code = 25.9 POCTCO2) POC ARTERIAL BLOOD GAS PO2 (test 50.8 mmHg 80-100.0 L code = KTVCR9F) POC HCO3 ARTERIAL (test code = 24.8 MMOL/L 22.0-26.0 N LBRQFB9D) POC BASE EXCESS (test code = 0.6 MMOL/L -4.0-4.0 N POCBEA) POC O2 SATURATION (test code = 86.9 % 90-100 L POCO2S) ABG DELIVERY (test code = CHRISTINA) Cannula ABG PATIENT RESP RATE (test code 20 /MIN = RRPATA) ABG SITE (test code = SITEA) R Brach JENNIFER'S TEST (test code = ALLENS) Positive BASIC METABOLIC [id number] 02:47:00 Test Item Value Reference Range Interpretation [...] code = POCGLU) 168 MG/DL 70-110 H [id number] 02:47:00 Test Item Value Reference Range Interpretation Comments HEMOGLOBIN (test code = HGB/ABG) 10.1 G/DL 11.0-15.0 L [id number] 02:47:00 Test Item Value Reference Range Interpretation Comments HEMATOCRIT (test code = HCT/ABG) 30 % 33.0-45.0 L POC LACTIC [id number] 02:47:00 Test Item Value Reference Range Interpretation Comments POC LACTIC ACID (test code = 0.5 mmol/l 0.9-1.7 L POCLAC) [id number] 00:37:00 Test Item Value Reference Range Interpretation Comments GLUBED (test code = 203 MG/DL 70-110 H Performe d by certified GLUBED) tie in machine operator at [facility] [id number] 17:37:00 Test Item Value Reference Range Interpretation Comments GLUBED (test code = 148 MG/DL 70-110 H Performe d by certified GLUBED) tie in machine operator at [facility] - XR CHEST 2 [id number] 14:27:00 [facility] : 1940 Sex: F FAX: Norberto Schmidt [phone] Manning: St: ADM FAX: Bijal Nguyễn MD [phone] FAX: Luda Fenton MD [phone] Name: CARLITA HERNANDEZ [facility] : 1940 Age/S: 80/F [address] [place] [address] Unit #: [id number] Loc: [address] [place] [address] Phys: Bijal Nguyễn MD Acct: [id number] Dis Date: Status: ADM IN PHONE #: [phone] Exam Date: 02/24/2021 1414 FAX #: [phone] Reason: hypoxia EXAMS: CPT CODE: [id number] XR CHEST 2 V 18236 Clinical Indication: Hypoxia. Comparison: 02/23/2021. Impression: Chest, single view. 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 Persistent, though improved bilateral coarse pulmonary opacities. No new pleural effusion or pneumothorax. Cardiac silhouette is of normal size. No acute osseous abnormality. SL: [id number] at 1427 Reported and signed by: Kayla Leal M.D. CC: Norberto James MD; Bijal Nguyễn MD; Luda Kruse MD Technologist: RT Pepe(He) Trnscrd Date/Time/By: 02/24/2021 (4730) : By: [email or web address] Orig Print D/T: S: 02/24/2021 (3948) PAGE 1 Signed [id number] 12:00:00 Test Item Value Reference Range Interpretation Comments GLUBED (test code = 191 MG/DL 70-110 H Performe d by certified GLUBED) tie in machine operator at [facility] CBC W/AUTO [id number] 10:43:00 Test Item Value Reference Range Interpretation [...] (test code NO = MDIFF) CBC W/AUTO [id number] 10:41:00 Test Item Value Reference Range Interpretation [...] REQUIRED (test code = MDIFF) COMPREHENSIVE METABOLIC [id number] 07:58:00 Test Item Value Reference Range Interpretation [...] 20-125 N TOTAL (test code = ALKP) [id number] 06:32:00 Test Item Value Reference Range Interpretation Comments GLUBED (test code = 193 MG/DL 70-110 H Performe d by certified GLUBED) tie in machine operator at [facility] [id number] 05:58:00 Test Item Value Reference Range Interpretation Comments GLUBED (test code = 195 MG/DL 70-110 H Performe d by certified GLUBED) tie in machine operator at [facility] [id number] 05:28:00 Test Item Value Reference Range Interpretation Comments GLUBED (test code = 191 MG/DL 70-110 H Performe d by certified GLUBED) tie in machine operator at [facility] - XR CHEST 1 [id number] 18:20:00 [facility] : 1940 Sex: F FAX: Bekah Wan [phone] Manning: St: [facility] FAX: Luda Fenton MD [phone] ----- Name: CARLITA HERNANDEZ [facility] : 1940 Age/S: 80/F [address] [place] [address] Unit #: [id number] Loc: [place] [address] Phys: Bekah Wan Acct: [id number] Dis Date: Status: ADM IN PHONE #: [phone] Exam Date: 02/23/2021 181 FAX #: [phone] Reason: POST WATCHMAN EXAMS: CPT CODE: [id number] XR CHEST 1 V 26099 Portable single view AP chest INDICATION: Post [...] persistent small right pleural effusion. Findings may beexaggerated by portable technique. Erect PA and lateral departmental radiographs can be obtained tobetter evaluate as clinically indicated. SL: SG-H at 1820 Reported and signed by: Dario Pelaez M.D. CC: Bekah Wna; Luda Kruse MD Technologist: RT Valarie(He)(M) Trnscrd Date/Time/By: 02/23/2021 (1819) : By: [email or web address] Orig Print D/T: S: 02/23/2021 (1822) PAGE 1 Signed [id number] 14:00:00 Test Item Value Reference Range Interpretation Comments GLUBED (test code = 190 MG/DL 70-110 H Performe d by certified GLUBED) tie in machine operator at [facility] [id number] 13:38:00 Test Item Value Reference Range Interpretation Comments ACT-ISTAT (test code 268 SEC 74-137 H Perform ed by certified = ACTI) tie in machine operator at [facility] [id number] 13:38:00 Test Item Value Reference Range Interpretation Comments ACT-ISTAT (test code 252 SEC 74-137 H Perform ed by certified = ACTI) tie in machine operator at [facility] [id number] 13:38:00 Test Item Value Reference Range Interpretation Comments ACT-ISTAT (test code 235 SEC 74-137 H Perform ed by certified = ACTI) tie in machine operator at [facility] [id number] 11:19:00 Test Item Value Reference Range Interpretation Comments GLUBED (test code = 201 MG/DL 70-110 H Performe d by certified GLUBED) tie in machine operator at [facility] Novel Coronavirus 2019 [id number] 10:15:00 Test Item Value Reference Range Interpretation [...] y in vitro. - XR CHEST 2 [id number] 15:44:00 [facility] CARLITA CABA : 1940 Sex: F FAX: Luda Fenton MD [phone] Manning: St: PRE Name: CARLITA CABA [facility] : 1940 Age/S: 80/F [address] [place] [address] Unit #: [id number] Loc: [place] [address] Phys: Luda Kruse MD Acct: [id number] Dis Date: Status: PRE SDC PHONE #: [phone] Exam Date: 02/21/20214 FAX#: [phone] Reason: PRE-OP WATCHMAN EXAMS: CPT CODE: [id number] XR CHEST 2 V 27156 Clinical Indication: Atrial fibrillation. Preoperative chest radiograph. Comparison: None available. Impression: Chest, 2 views. Lungs are hyperexpanded with flattening of the diaphragm. Blunting of the costophrenic angles may represent scarring or small volume pleural fluid. No pneumothorax. Cardiac silhouette isof normal size. No acute osseous abnormality. SL: [id number] at 5755 Reported and signed by: Kayla Leal M.D. CC: Luda Kruse MD Technologist: RT Jagjit(He) Trnscrd Date/Time/By: 02/21/2021 (2931) : By: [email or web address] Shelton g Print D/T: S: 02/21/2021 (7450) PAGE 1 Signed ReportBASIC METABOLIC PANEL 2021-02-21 [...] code = 9.5 mg/dL 8.0-10.5 N CA) [id number] 14:40:00 Test Item Value Reference Range Interpretation Comments PREALBUMIN (test code = PREALB) 17.5 mg/dL 16.0-40.0 N PROTHROMBIN [id number] 14:36:00 Test Item Value Reference Range Interpretation Comments PROTHROMBIN TIME 13.7 SECONDS 9.3-12.9 H PATIENT (test code = PTP) INTERNATIONAL NORMAL 1.3 0.8-1.2 H TARGET INR BY RATIO (test code = [...] (to prevent recurrent infar ct). CBC W/AUTO [id number] 14:15:00 Test Item Value Reference Range Interpretation [...] (test code NO = MDIFF) CBC W/AUTO [id number] 14:14:00 Test Item Value Reference Range Interpretation [...] DIFF REQUIRED (test code = MDIFF) POCT-GLUCOSE [id number] 17:15:00 Test Item Value Reference Range Interpretation Comments POC-GLUCOSE METER 221 mg/dL 70-110 H : [facility] ([employer]) (test code = [place], 1538) [address]: Burn Crew Member/Techni arnold ID = [id number] for TURNER SALINAS POCT-GLUCOSE [id number] 12:18:00 Test Item Value Reference Range Interpretation Comments POC-GLUCOSE METER 201 mg/dL 70-110 H : TESTED A T [facility] [address] ([employer]) (test code = SHAJI [place]UR[place], 1538) 13869: Burn Crew Member/Techni arnold ID = [id number] for TURNER SALINAS POCT-GLUCOSE [id number] 07:41:00 Test Item Value Reference Range Interpretation Comments POC-GLUCOSE METER 131 mg/dL 70-110 H : TESTED A T [facility] [address] (BEAKER) (test code = [facility] He [facility], 1538) 55703: Burn Crew Member/Techni arnold ID = [id number] for TURNER SALINAS BASIC METABOLIC [id number] 06:48:00 Test Item Value Reference Range Interpretation [...] S NOT APPLICABLE FOR DIALYSIS PATIEN TS. Burn Crew Member ID - MARK LB-TYPE NATRIURETIC FACTOR (BNP)2021-02-07 06:42:00 Test Item Value Reference Range Interpretation Comments B-TYPE NATRIURETIC PEPTIDE (BEAKER) 817 pg/mL 0-100 H (test code = 700) Burn Crew Member ID - DALILA MHEPATIC FUNCTION [id number] 06:41:00 Test Item Value Reference Range Interpretation [...] (test code = 22 U/L 6-55 347) Burn Crew Member ID - MARK DAMIAN [id number] 06:37:00 Test Item Value Reference Range Interpretation [...] failure, acidosis, acute neurological disease, and persistent tachyarrhythmia.Burn Crew Member ID - DALILA MCBC (HEMOGRAM ONLY) 2021-02-07 [...] 0-0 (BEAKER) (test code = 413) POCT-GLUCOSE [id number] 21:08:00 Test Item Value Reference Range Interpretation Comments POC-GLUCOSE METER 264 mg/dL 70-110 H : TESTED A T [facility] [address] (BEAKER) (test code = [facility], 1538) 18133: Burn Crew Member/Techni arnold ID = [id number] for NIRAV WOMACK POCT-GLUCOSE [id number] 16:42:00 Test Item Value Reference Range Interpretation Comments POC-GLUCOSE METER 249 mg/dL 70-110 H : TESTED A T [facility] [address] (BEAKER) (test code = [facility], 1538) 73005: Burn Crew Member/Techni arnold ID = [id number] for IVÁN CUELLAR POCT-GLUCOSE [id number] 13:04:00 Test Item Value Reference Range Interpretation Comments POC-GLUCOSE METER 139 mg/dL 70-110 H : TESTED A T [facility] [address] (BEAKER) (test code = [facility], 1538) 12047: Burn Crew Member/Techni arnold ID = [id number] for IVÁN CUELLAR POCT-GLUCOSE [id number] 08:04:00 Test Item Value Reference Range Interpretation Comments POC-GLUCOSE METER 111 mg/dL 70-110 H : TESTED A T [facility] 67[address] (BEAKER) (test code = [facility], 153) [id number]: Burn Crew Member/Techni arnold ID = [id number] for IVÁN CUELLAR BASIC METABOLIC [id number] 05:32:00 Test Item Value Reference Range Interpretation [...] S NOT APPLICABLE FOR DIALYSIS PATIEN TS. Burn Crew Member ID - DALILA EPATIC FUNCTION [id number] 05:30:00 Test Item Value Reference Range Interpretation [...] (test code = 32 U/L 6-55 347) Burn Crew Member ID - DALILA [facility] (HEMOGRAM ONLY)2021-02-06 04:58:00 [...] 0-0 (BEAKER) (test code = 413) POCT-GLUCOSE [id number] 16:58:00 Test Item Value Reference Range Interpretation Comments POC-GLUCOSE METER 213 mg/dL 70-110 H : TESTED A T [facility] 6720 (BEAKER) (test code = [facility], 1538) [id number]: Burn Crew Member/Techni arnold ID = [id number] for CELENA BRANDT POCT-GLUCOSE [id number] 12:09:00 Test Item Value Reference Range Interpretation Comments POC-GLUCOSE METER 202 mg/dL 70-110 H : TESTED A T [facility] 6720 (BEAKER) (test code = [facility], 1538) [id number]: Burn Crew Member/Techni arnold ID = [id number] for WOODARDMARIA DEL ROSARIO CASTILLOE POCT-GLUCOSE [id number] 07:45:00 Test Item Value Reference Range Interpretation Comments POC-GLUCOSE METER 81 mg/dL 70-110 : TESTED A T [facility] 6720 (BEAKER) (test code = [facility], 1538) [id number]: Burn Crew Member/Techni arnold ID = [id number] for CELENA BRANDT BASIC METABOLIC [id number] 04:54:00 Test Item Value Reference Range Interpretation [...] S NOT APPLICABLE FOR DIALYSIS PATIEN TS. Burn Crew 04:45:00 Test Item Value Reference Range Interpretation Comments MAGNESIUM (BEAKER) (test code = 1.8 mg/dL 1.6-2.6 627) Burn Crew 04:45:00 Test Item Value Reference Range Interpretation Comments PHOSPHORUS (BEAKER) (test code = 3.6 mg/dL 2.3-4.7 604) Burn Crew Member ID - ADMINHEPATIC FUNCTION [id number] 04:45:00 Test Item Value Reference Range Interpretation [...] (test code = 35 U/L 6-55 347) Burn Crew Member ID - ADMINCBC W/PLT COUNT & AUTO [id number] 04:28:00 Test Item Value Reference Range Interpretation [...] PERCENT (BEAKER) (test code = 2801) POCT-GLUCOSE [id number] 17:20:00 Test Item Value Reference Range Interpretation Comments POC-GLUCOSE METER 194 mg/dL 70-110 H : TESTED A T [facility] 6720 (BEAKER) ([place], [address]: code = 1538) Burn Crew Member/Techni arnold ID = [id number] for MAXIM LANDON IN POCT-GLUCOSE [id number] 11:44:00 Test Item Value Reference Range Interpretation Comments POC-GLUCOSE METER 260 mg/dL 70-110 H : TESTED A T [facility] 6720 (BEAKER) ([place], [address]: code = 1538) Burn Crew Member/Techni arnold ID = [id number] for MAXIM LANDON IN POCT-GLUCOSE [id number] 07:26:00 Test Item Value Reference Range Interpretation Comments POC-GLUCOSE METER 143 mg/dL 70-110 H : TESTED A T [facility] 6720 (BEAKER) ([place], [address]: code = 1538) Burn Crew Member/Techni arnold ID = [id number] for MAXIM LANDON IN COMPREHENSIVE METABOLIC [id number] 04:27:00 Test Item Value Reference Range Interpretation [...] S NOT APPLICABLE FOR DIALYSIS PATIEN TS. Burn Crew 04:08:00 Test Item Value Reference Range Interpretation Comments MAGNESIUM (BEAKER) (test code = 1.7 mg/dL 1.6-2.6 627) Burn Crew 04:08:00 Test Item Value Reference Range Interpretation Comments PHOSPHORUS (BEAKER) (test code = 3.7 mg/dL 2.3-4.7 604) Burn Crew Member ID - EDASIHEPATIC FUNCTION [id number] 04:08:00 Test Item Value Reference Range Interpretation [...] (test code = 35 U/L 6-55 347) Burn Crew Member ID - EDASICALCIUM, [id number] 03:55:00 Test Item Value Reference Range Interpretation Comments CALCIUM IONIZED (BEAKER) (test 1.09 mmol/L 1.12-1.27 L code = 698) PH, BLOOD (BEAKER) (test code = 7.48 1810) CBC W/PLT COUNT & AUTO [id number] 03:50:00 Test Item Value Reference Range Interpretation [...] 417) IMMATURE GRANULOCYTES-RELATIVE 1 % 0-1 PERCENT (GABRIELA) (test code = 2801) POCT-GLUCOSE [id number] 22:44:00 Test Item Value Reference Range Interpretation Comments POC-GLUCOSE METER 203 mg/dL 70-110 H : Notified RN/MD: (GABRIELA) (test code = TESTED AT [facility] 6720 1538) KAMRYN [facility], [address]: Burn Crew Member/Techni arnold ID = [id number] for SUSANNE RALPH POCT-GLUCOSE [id number] 16:57:00 Test Item Value Reference Range Interpretation Comments POC-GLUCOSE METER 213 mg/dL 70-110 H : TESTED A T [facility] 6720 (GABRIELA) (test code = SHAJI Cutler [facility], 1538) [address]: Burn Crew Member/Techni arnold ID = [id number] for ALKA PIERCE U/S, ABDOMINAL, [id number] 16:34:00Abdomen limited area? Add comment if clarification is needed.->Right upper quadrantReason for exam:->elevated LFTCOMM[facility]: [facility] HERNANDEZ : 1940 Sex: FFINAL REPORT [...] Tamez Verified Date/Time: 02/03/2021 16:34:01 U/S, RENAL, [id number] 12:58:00Reason for exam:->akiShould this be performed at the bedside?->Yes [facility] : 1940 Sex: FFINAL REPORT [...] renal parenchymal disease. No hydronephrosis. Signed: Minnie Tamezort Verified Date/Time: 02/03/2021 12:58:21 TITIS C [id number] 11:48:00 Test Item Value Reference Range Interpretation Comments HEPATITIS C ANTIBODY (BEAKER) Nonreactive Nonreactive (test code = 367) Burn Crew Member ID - JING FHEPATITIS B [id number] 11:48:00 Test Item Value Reference Range Interpretation Comments HEPATITIS B CORE TOTAL ANTIBODY Nonreactive Nonreactive (BEAKER) (test code = 497) HEPATITIS B SURFACE ANTIBODY < mIU/mL <8.0 (BEAKER) (test code = 647) HEPATITIS B SURFACE ANTIGEN (2) Nonreactive Nonreactive (BEAKER) (test code = 2585) Burn Crew Member ID - JING ACD, CHEST, 1 VIEW, NON [id number] 11:33:00Reason for exam:->sobShould this be performed at the bedside?->Yes [facility] 1940 Sex: FFINAL REPORT CLINICAL HISTORY: sob TECHNIQUE: 1 view of the chest COMPARISON: 01/31/2021 IMPRESSION: There are no focal infiltrates or pleural effusions. The cardiomediastinal silhouette is within normal limits for size. The visualized bones are intact. Signed: Davion RiveraVerified Date/Time: 02/03/2021 11:33:20 Reading Location: [facility] Radiology Reading Room POCT- GLUCOSE [id number] 11:21:00 Test Item Value Reference Range Interpretation Comments POC-GLUCOSE METER 188 mg/dL 70-110 H : Notified RN/MD: (GABRIELA) (test code = TESTED AT [place] [address] 1538) [facility], [address]: Burn Crew Member/Techni arnold ID = [id number] for [facility] POCT-GLUCOSE [id number] 07:26:00 Test Item Value Reference Range Interpretation Comments POC-GLUCOSE METER 122 mg/dL 70-110 H : Notified RN/MD: (GABRIELA) (test code = TESTED AT [place] [address] 1538) [facility], [address]: Burn Crew Member/Techni arnold ID = [id number] for [facility] COMPREHENSIVE METABOLIC [id number] 05:22:00 Test Item Value Reference Range Interpretation [...] S NOT APPLICABLE FOR DIALYSIS PATIEN TS. Burn Crew Member ID - DALILA MB-TYPE NATRIURETIC FACTOR (BNP)2021-02-03 05:05:00 Test Item Value Reference Range Interpretation Comments B-TYPE NATRIURETIC PEPTIDE 2229 pg/mL 0-100 H (BEAKER) (test code = 700) Burn Crew Member ID - DALILA [id number] 05:02:00 Test Item Value Reference Range Interpretation Comments MAGNESIUM (BEAKER) (test code = 1.6 mg/dL 1.6-2.6 627) Burn Crew Member ID - DALILA [id number] 05:02:00 Test Item Value Reference Range Interpretation Comments PHOSPHORUS (BEAKER) (test code = 4.1 mg/dL 2.3-4.7 604) Burn Crew Member ID - DALILA MCALCIUM, [id number] 04:39:00 Test Item Value Reference Range Interpretation Comments CALCIUM IONIZED (BEAKER) (test 1.14 mmol/L 1.12-1.27 code = 698) PH, BLOOD (BEAKER) (test code = 7.48 1810) CBC W/PLT COUNT & AUTO [id number] 04:38:00 Test Item Value Reference Range Interpretation [...] PERCENT (BEAKER) (test code = 2801) POCT-GLUCOSE [id number] 21:22:00 Test Item Value Reference Range Interpretation Comments POC-GLUCOSE METER 165 mg/dL 70-110 H : TESTED A T [facility] 6720 (BEAKER) (test code = [place], 1538) [address]: Burn Crew Member/Techni arnold ID = [id number] for PH ILIP, JA URINALYSIS W/ [id number] 21:08:00 Test Item Value Reference Range Interpretation [...] 516) SOURCE(BEAKER) (test code = Urine, Voided 8176) Burn Crew Member ID - [auto]Burn Crew Member ID - techCREATININE, RANDOM [id number] 21:08:00 Test Item Value Reference Range Interpretation Comments CREATININE URINE (BEAKER) (test 38.0 mg/dL code = 375) Reference Range: No NormalsOperator ID - BSPROTEIN, RANDOM [id number] 21:08:00 Test Item Value Reference Range Interpretation Comments PROTEIN, URINE (BEAKER) (test code = 78 mg/dL 0-14 H 1569) Burn Crew Member ID - BSPOCT-GLUCOSE [id number] 17:47:00 Test Item Value Reference Range Interpretation Comments POC-GLUCOSE METER 128 mg/dL 70-110 H : [facility] 6720 (BEAKER) (test code = [facility], 1538) [address]: Burn Crew Member/Techni arnold ID = [id number] for ALKA PIERCE [id number] 13:18:00 Test Item Value Reference Range Interpretation Comments ACTIVATED CLOTTING TIME 263 sec : 74 -137 seconds, (BEAKER) (test code = Baseli ne: TESTED AT 441) [facility] 6720 [facility], [address]: Burn Crew Member/Techni arnold ID = [id number] for At Nazario hardenn [id number] 12:55:00 Test Item Value Reference Range Interpretation Comments ACTIVATED CLOTTING TIME 285 sec : 74 -137 seconds, (BEAKER) (test code = Baseli ne: TESTED AT 441) [facility] 6720 [facility], [address]: Burn Crew Member/Techni arnold ID = [id number] for CO LEBRON WHITLOCK POCT-GLUCOSE [id number] 12:08:00 Test Item Value Reference Range Interpretation Comments POC-GLUCOSE METER 151 mg/dL 70-110 H : TESTED A T [facility] 6720 (BEAKER) (test code = [facility], 1538) [address]: Burn Crew Member/Techni arnold ID = [id number] for ZAPATA ALKA SKINNER POCT-GLUCOSE [id number] 08:00:00 Test Item Value Reference Range Interpretation Comments POC-GLUCOSE METER 209 mg/dL 70-110 H : TESTED A T [facility] 6720 (BEAKER) (test code = [facility], 1538) [address]: Burn Crew Member/Techni arnold ID = [id number] for ZAPATA NNALKA Gibson TROPONIN [id number] 07:08:00 Test Item Value Reference Range Interpretation [...] failure, acidosis, acute neurological disease, and persistent tachyarrhythmia.Burn Crew Member ID - PIAYA LBASIC METABOLIC [id number] 06:41:00 Test Item Value Reference Range Interpretation [...] S NOT APPLICABLE FOR DIALYSIS PATIEN TS. Burn Crew Member ID - PIAYA [id number] 06:29:00 Test Item Value Reference Range Interpretation [...] 0-0 (BEAKER) (test code = 413) TROPONIN [id number] 23:15:00 Test Item Value Reference Range Interpretation Comments TROPONIN I (BEAKER) (test code = 0.90 ng/mL 0.00-0.03 [facility]) Troponin I (TnI) levels must be interpreted [...] failure, acidosis, acute neurological disease, and persistent tachyarrhythmia.Burn Crew Member ID - BSPOCT-GLUCOSE METER 2021-02-01 20:47:00 Test Item Value Reference Range Interpretation Comments POC-GLUCOSE METER 304 mg/dL 70-110 H : TESTED A T [facility] 6720 (BEAKER) (test code = [facility], 153) [address]: Burn Crew Member/Techni arnold ID = [id number] for PH JA STANTON POCT-GLUCOSE [id number] 17:53:00 Test Item Value Reference Range Interpretation Comments POC-GLUCOSE METER 182 mg/dL 70-110 H : TESTED A T [facility] 6720 (BEAKER) (test code = [facility], 153) [address]: Burn Crew Member/Techni arnold ID = [id number] for KIM PULIDO [id number] 16:54:00 Test Item Value Reference Range Interpretation Comments ACTIVATED CLOTTING TIME 323 sec : 74 -137 seconds, (BEAKER) (test code = Baseli ne: TESTED AT 441) [address], [facility] 30: Burn Crew Member/Techni arnold ID = [id number] for SA LINRAMO, JACOBO [id number] 16:23:00 Test Item Value Reference Range Interpretation Comments ACTIVATED CLOTTING TIME 285 sec : 74 -137 seconds, (BEAKER) (test code = Baseli ne: TESTED AT 441) [facility] [address] [place] [address], [facility] 30: Burn Crew Member/Techni arnold ID = [id number] for JOAQUIN PARKER [id number] 15:59:00 Test Item Value Reference Range Interpretation Comments ACTIVATED CLOTTING TIME 224 sec : 74 -137 seconds, (BEAKER) (test code = Baseli ne: TESTED AT 441) [address], [address]: Burn Crew Member/Techni arnold ID = [id number] for JOAQUIN PARKER TROPONIN [id number] 13:53:00 Test Item Value Reference Range Interpretation Comments TROPONIN I (BEAKER) (test code = 0.65 ng/mL 0.00-0.03 397) [...] failure, acidosis, acute neurological disease, and persistent tachyarrhythmia.Burn Crew Member ID - JING [id number] 13:30:00 Test Item Value Reference Range Interpretation Comments PARTIAL THROMBOPLASTIN TIME 24.9 seconds 22.5-36.0 (BEAKER) (test code = 760) POCT-GLUCOSE [id number] 12:15:00 Test Item Value Reference Range Interpretation Comments POC-GLUCOSE METER 176 mg/dL 70-110 H : TESTED A T [facility] 6720 (BEAKER) (test code = SHAJI Cutler [facility], 1538) [address]: Burn Crew Member/Techni arnold ID = [id number] for Jose Luis Edwards HEMOGLOBIN [id number] 10:18:00 Test Item Value Reference Range Interpretation Comments HEMOGLOBIN A1C (BEAKER) (test code = 10.9 % 4.3-6.1 H 368) BASIC METABOLIC [id number] 10:09:00 Test Item Value Reference Range Interpretation [...] S NOT APPLICABLE FOR DIALYSIS PATIEN TS. Burn Crew Member ID Gayle CH FLIPID [id number] 10:08:00 Test Item Value Reference Range Interpretation [...] Borderline 130-159 High 160-189 Very High >=190 Burn Crew Member PETEY CH FPOCT-GLUCOSE [id number] 08:09:00 Test Item Value Reference Range Interpretation Comments POC-GLUCOSE METER 156 mg/dL 70-110 H : TESTED A T [facility] 6720 (GABRIELA) (test code = SHAJI Cutler [facility], 1538) [address]: Burn Crew Member/Techni arnold ID = [id number] for Jose Luis Edwards TROPONIN [id number] 07:21:00 Test Item Value Reference Range Interpretation Comments TROPONIN I (GABRIELA) (test code = 0.85 ng/mL 0.00-0.03 397) Troponin I (TnI) levels [...] failure, acidosis, acute neurological disease, and persistent tachyarrhythmia.Burn Crew Member PETEY CONNER MB-TYPE NATRIURETIC FACTOR (BNP)2021-02-01 07:17:00 Test Item Value Reference Range Interpretation Comments B-TYPE NATRIURETIC PEPTIDE (BEAKER) 204 pg/mL 0-100 H (test code = 700) Burn Crew Member ID - DALILA [id number] 06:55:00 Test Item Value Reference Range Interpretation Comments PARTIAL THROMBOPLASTIN TIME 59.4 seconds 22.5-36.0 H (BEAKER) (test code = 760) 6 hours after [...] 0-0 (BEAKER) (test code = 413) POCT-GLUCOSE [id number] 23:35:00 Test Item Value Reference Range Interpretation Comments POC-GLUCOSE METER 232 mg/dL 70-110 H : TESTED A T [facility] 6720 (BEAKER) (test code = [place], 1538) [address]: Burn Crew Member/Techni arnold ID = [id number] for Fl Lashay ricardo TROPONIN [id number] 23:35:00 Test Item Value Reference Range Interpretation [...] failure, acidosis, acute neurological disease, and persistent tachyarrhythmia.Burn Crew Member ID - DBBASIC METABOLIC PANEL 2021-01-31 23:32:00 [...] S NOT APPLICABLE FOR DIALYSIS PATIEN TS. Burn Crew 22:44:00 Test Item Value Reference Range Interpretation [...] = 413) RAD, CHEST, 1 VIEW, NON [id number] 21:59:00Reason for exam:->shortness of breathShould this be performed at the bedside?->Yes [facility] : 1940 Sex: FFINAL REPORT [...] Signed: Jahaira Martinez Verified Date/Time: 01/31/2021 21:59:25 AS-KuC-8 (COVID-19) RNA [Presence] in Respiratory specimen by SHERI with probe [id number] 23:06:42 Test Item Value Reference Range Interpretation Comments SARS-CoV-2 (COVID-19) RNA Not detected Not-Detected [Presence] in Respiratory specimen by SHERI with probe detection (test code = 56397-5) ADIN PROTESTANT WESTPOCT-GLUCOSE [id number] 08:39:00 Test Item Value Reference Range Interpretation Comments POC-GLUCOSE METER 113 mg/dL 70-110 H TESTED AT [facility] 7200 ([facility]) (test code [place] [address] = 1538) [place] [address] Notes Date/Time Note Provider Source 2021-03-16 12:47:00-00:00 [id number] [place] [address] PATIENT NAME: CARLITA HERNANDEZ ADMIT DATE: 02/23/21 ACCOUNT NO: [id number] ROOM NO: [facility] AGE: 80 REPORT TYPE: eTRANSESOPHAGEAL ECHO REPORT SEX: F ADMITTING PHYSICIAN:Luda Kruse MD ATTENDING PHYSICIAN:Norberto James MD *[place] [address] Transesophageal Echocardiogram for Chandni Patient: Carlita Hernandez Study Date: 02/23/2021 BP: Location: [facility] URN: [id number] : 1940 Age: 80 Height: / Gender: F Weight: / BMI/BSA: / *Ordering Physician: * Luda Kruse *Interpreting Physician: * Aixa Woodall MD Study data: Transesophageal Echocardiogram for Helio ramachandran. Consent: The risks, benefits, and alternatives to the procedu re and sedation were explained to the patient and informed consent wa s obtained. Procedure: Initial setup: The [facility] in the fasting state.Intravenous access was obtained. Surface E CG leads, blood pressure measurements, and pulse oximetric signals were m onitored. Sedation. Deep sedation was administered by anesthesiology mckenna valenzuela. Transesophageal echocardiography was performed. A transesophagea l probe was inserted by the anesthesiologist. Images were obtained using a [employer] cardiac ultrasound machine. Study completion: The patient tolerated the procedure well. There were no complications. Findings Conclusions Summary: 1. Study data: Transesophageal Echocardiogram fo he Tariq. The patient PATIENT NAME: CARLITA HERNANDEZ ACCOUNT #: G [id number] tolerated the procedure well. 2. Procedure narrative: Transesophageal echocard iography was performed. A transesophageal probe was inserted by the damián sthesiologist. Images were obtained using a [employer] cardiac ultrasound SAVORTEX. Prepared and electronically signed by Aixa Woodall MD 03/16/2021 12:47 Electronically Signed by Luda Kruse MD on at 1248 PATIENT NAME: CARLITA HERNANDEZ ACCOUNT #: G [id number] 2021-02-25 10:29:00-00:00 HCACL [facility] ([facility]) Discharge Summary REPORT#:[id number] REPORT STATUS: Signed DATE:02/25/21 TIME: 1029 PATIENT: CARLITA HERNANDEZ UNIT #: [id number] ROOM/BED: 3340-1 : 39 AGE: 80 SEX: F ATTEND: Shayla James MD ADM AUTHOR: Bijal Nguyễn MD * ALL edits or amendments must be made on the [employer]/computer document * General Information Discharge date: 02/25/21 [...] a of chronic disease Seen by cardiology okchris for discharge And is to discharge holding [...] GI: soft, non-tender, no guarding, no rebound Neuro/VP DATA: alert, oriented X 3 Discharge Instructions PCP [...] MD on 0 02/25/21 at 1308 RPT #:[id number] END OF REPORT 2021-02-25 10:28:00-00:00 HCACL [facility] Hospitalist Progress Note REPORT#:[id number] REPORT STATUS: Signed DATE:02/25/21 TIME: 1028 PATIENT: CARLITA HERNANDEZ UNIT #: [id number] ROOM/BED: [facility]0-1 : 39 AGE: 80 SEX: F ATTEND: Shayla James MD ADM AUTHOR: Bijal Nguyễn MD * ALL edits or amendments must be made on the el [employer]/computer document * Subjective Chief Complaint: f/u s/p watchman HPI: Patient doing well. Noted patient not hypoxic no w. Patient doing well blood pressure stable not hyp oxic Jenna with cardiology okay to discharge. Discusse d with hematology as well. Hemoglobin posttransfusion is stable no active b leeawilda. Review of Systems Additional notes: All 14 [...] 0422 36.4 96 18 153/72 98.9 95 02/25 0251 97 Nasal 2 cannula 02/24 2301 [...] soft, no distention Musculoskeletal: no CVA tenderness Neuro/VP DATA: alert, oriented X 3, CNII-XII intact Lymphatics: [...] 02/25 02/25 02/24 02/24 1053 0725 0242 2331 5667 Chemistry POC Creatinine (0.6 - 1.0 mg/dL) [...] % (Auto) (14.0 - 32.0 %) 19.4 Brown % (Auto) (4.8 - 9.0 %) 10.3 H Eos % (Auto) (0.3 - 3.7 %) 8.0 H Baso % (Auto) (0.0 - 2.0 %) 0.5 Neut # (Auto) (2.0 - 7.6 x10 3/uL) 3.93 Lymph # (Auto) (1.0 - 3.8 x10 3/uL) 1.24 Brown # (Auto) (0.1 - 0.8 x10 3/uL) [...] size. No acute o sseous abnormality. SL: [id number] Impression By: [email or web address] - Kayla Leal M.D. [...] MD on 0 02/25/21 at 1307 RPT #:[id number] END OF REPORT 2021-02-25 10:26:00-00:00 HCACL [facility] ([facility]) DT PROGRESS NOTE REPORT#:[id number] REPORT STATUS: Signed DATE:02/25/21 TIME: 1026 PATIENT: CARLITA HERNANDEZ UNIT #: [id number] ROOM/BED: [place] [address] : 39 AGE: 80 SEX: F ATTEND: Shayla James MD ADM AUTHOR: Bekah Wan * ALL edits or amendments must be made on the el [employer]/computer document * Progress Note Progress Note Cardiology/Structural heart Progress note Patient seen and examined no acute distress. Mariel verdin denies any complaints at this time. Patient has been doing well off of ox ygen. Hemoglobin improved to 10.6 post transfusion. Objective Physical Exam VS: Vital Signs Date Temp Pulse Resp B/P B/P Mean Pulse Ox FiO 2 02/24-02/25 36.4-36.9 90-99 14-20 123-171/59-79 0.0-102.2 90-98 Last Documented: Result Date Time Pulse Ox 97 02/25 110 B/P 139/68 02/25 1105 B/P Mean 0.0 [...] 02/25 02/25 02/25 02/24 02/24 1053 0725 4009 5835 4597 Chemistry POC Creatinine (0.6 - 1.0 mg/dL) [...] % (Auto) (14.0 - 32.0 %) 19.4 Brown % (Auto) (4.8 - 9.0 %) 10.3 H Eos % (Auto) (0.3 - 3.7 %) 8.0 H Baso % (Auto) (0.0 - 2.0 %) 0.5 Neut # (Auto) (2.0 - 7.6 x10 3/uL) 3.93 Lymph # (Auto) (1.0 - 3.8 x10 3/uL) 1.24 Brown # (Auto) (0.1 - 0.8 x10 3/uL) [...] thrombus/leaks then eliquis will be discontinued and pa juma will be initiated on aspirin and [...] 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 Electronically Signed by Bekah Wan on 0 03/11/21 at 1247 RPT #:[id number] END OF REPORT 2021-02-25 10:26:00-00:00 [facility] DT PROGRESS NOTE REPORT#:[id number] REPORT STATUS: Signed DATE:02/25/21 TIME: 1026 PATIENT: CARLITA HERNANDEZ UNIT #: [id number] ROOM/BED: [place] [address] : 39 AGE: 80 SEX: F ATTEND: Shayla James MD ADM AUTHOR: Bekah Wan * ALL edits or amendments must be made on the el [employer]/computer document * See Addendum Progress Note Progress [...] 02/25 02/25 02/24 02/24 1053 0725 0242 1006 4017 Chemistry POC Creatinine (0.6 - 1.0 mg/dL) [...] % (Auto) (14.0 - 32.0 %) 19.4 Brown % (Auto) (4.8 - 9.0 %) 10.3 H Eos % (Auto) (0.3 - 3.7 %) 8.0 H Baso % (Auto) (0.0 - 2.0 %) 0.5 Neut # (Auto) (2.0 - 7.6 x10 3/uL) 3.93 Lymph # (Auto) (1.0 - 3.8 x10 3/uL) 1.24 Brown # (Auto) (0.1 - 0.8 x10 3/uL) [...] thrombus/leaks then eliquis will be discontinued and pa juma will be initiated on aspirin and [...] 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 Electronically Signed by Bekah Wan on 0 03/11/21 at 1247 Addendum 1: 03/30/21 1231 by Sergey Alatorre MD I have seen and examined the pt, I Agree with th e findings and plan as documented by Bekah Wan. Electronically Signed by Sergey Alatorre MD on at 1232 [facility] #:[id number] END OF REPORT 2021-02-24 18:49:00-00:00 [phone] [address] PATIENT NAME: CARLITA HERNANDEZ ADMIT DATE: 02/23/21 ACCOUNT NO: [id number] ROOM NO: [facility] AGE: 80 REPORT TYPE: CONSULTATION REPORT SEX: [...] PATIENT NAME: CARLITA HERNANDEZ ACCOUNT #: G [id number] PHYSICAL EXAMINATION: VITAL SIGNS: Blood pressure 126/61, [...] appendage occlusion device in place. ASSESSMENT: 1. Moqxh-gp-vhfcwbm normal to macrocytic anemia - multifactorial secondary [...] hospitalized. Dictated By: Pietro Jarrell MD WT: CON:TANNER/EDSON/ESTELA PATIENT NAME: CARLITA HERNANDEZ ACCOUNT #: G [id number] Conf#: [id number]#: [id number] Authenticated by Pietro Jarrell MD On 03/28/2021 05:15:19 PM Electronically Signed by Pietro Jarrell MD on at 1715 PATIENT NAME: CARLITA HERNANDEZ ACCOUNT #: G [id number] 2021-02-24 18:29:00-00:00 [id number] [place] [address] PATIENT NAME: CARLITA HERNANDEZ ADMIT DATE: 02/23/21 ACCOUNT NO: [id number] ROOM NO: G.3340 AGE: 80 REPORT TYPE: eECHOCARDIOGRAM REPORT SEX: F ADMITTING PHYSICIAN:Luda Kruse MD ATTENDING PHYSICIAN:Norberto James MD *[place] [address] Limited Transthoracic Echocardiogram Patient: Carlita Hernandez Study Date: 02/24/2021 BP: 115 / 64 Location: [facility] URN: [id number] : 1940 Age: 80 Height: 63.8 in / 162 cm Gender: F Weight: 118 .8 lb / 54 kg BMI/BSA: 20.6 kg/m 2 / 1.56 m 2 *Ordering Physician: * Sergey Alatorre MD *Interpreting Physician: * Sergey Alatorre MD *Hand Chain Maker: * NÉSTOR Francis Indications: EVAL EFFUSION. Study [...] PATIENT NAME: CARLITA HERNANDEZ ACCOUNT #: G [id number] Right ventricle Value Ref Pressure, S 44 [...] PATIENT NAME: CARLITA HERNANDEZ ACCOUNT #: [id number] 2021-02-24 12:44:00-00:00 [facility] REPORT#:[id number] REPORT STATUS: Signed DATE:02/24/21 TIME: 1244 PATIENT: CARLITA HERNANDEZ UNIT #: [id number] ROOM/BED: [address] : 39 AGE: 80 SEX: F ATTEND: Shayla James MD ADM AUTHOR: Bijal Nguyễn MD * ALL edits or amendments must be made on the [employer]/computer document * Subjective Chief Complaint: f/u s/p [...] soft, no distention Musculoskeletal: no CVA tenderness Neuro/VP DATA: alert, oriented X 3, CNII-XII intact Lymphatics: [...] H 252 H 235 H Laboratory Tests 04/15 1031 Hematology WBC (4.5 - 11.0 x10 [...] % (Auto) (14.0 - 32.0 %) 17.8 Brown % (Auto) (4.8 - 9.0 %) 9.5 H Eos % (Auto) (0.3 - 3.7 %) 7.8 H Baso % (Auto) (0.0 - 2.0 %) 0.6 Neut # (Auto) (2.0 - 7.6 x10 3/uL) 4.14 Lymph # (Auto) (1.0 - 3.8 x10 3/uL) 1.16 Brown # (Auto) (0.1 - 0.8 x10 3/uL) [...] # (Man) (0.0 - 0.1 x10 3/uL) 0. 00 Radiology data: Recent Impressions: RADIOLOGY - XR CHEST 1 V 02/23 1815 Report Impression - Status: SIGNED Entered: 02/23/2021 9616 IMPRESSION: 1. Watchman device placement. 2. Interval development of mild diffuse pulmonar y opacities with persistent small right pleural effusion. Finding s may be exaggerated by portable technique. Erect PA and lateral depa rtmental radiographs can be obtained to better evaluate as clinically indicated. SL: CHRISTOFER Impression By: [email or web address] - Dario Pelaez M.D. Diagnosis, Assessment Plan [...] Nguyễn MD on 0 02/24/21 at 1253 [facility] #:[id number] END OF REPORT 2021-02-24 11:07:00-00:00 [facility]ACL [facility] ([facility]) Cardiology Progress Note REPORT#:[id number] REPORT STATUS: Signed DATE:02/24/21 TIME: 110 PATIENT: CARLITA HERNANDEZ UNIT #: [id number] ROOM/BED: 3340-1 : 39 AGE: 80 SEX: F ATTEND: Jose James MD ADM AUTHOR: Bekah Wan * ALL edits or amendments must be made on the el ectronic/computer document * Subjective Chief Complaint: Post Watchman [...] HCl 0 .STK-MED ONE .ROUTE (DC) Rocuronium [place] 0 .STK-MED ONE IV (DC) Sodium Chloride [...] * Right groin suture removed by this HAIR WEAVER. no infe ction, bleeding, or hematoma. Dermabond [...] Wan on 0 02/25/21 at 0820 RPT #:[id number] END OF REPORT 2021-02-24 11:07:00-00:00 [facility]ACL [facility] Cardiology Progress Note REPORT#:[id number] REPORT STATUS: Signed DATE:02/24/21 TIME: 110 PATIENT: CARLITA HERNANDEZ UNIT #: [id number] ROOM/BED: [place] [address] : 39 AGE: 80 SEX: F ATTEND: [...] implantation. Patient was not a good candidate for long-term anticoagulation therapy secondary to history of [...] HCl 0 .STK-MED ONE .ROUTE (DC) Rocuronium [place] 0 .STK-MED ONE IV (DC) Sodium Chloride [...] * Right groin suture removed by this HAIR WEAVER. no infe ction, bleeding, or hematoma. Dermabond [...] Sergey Alatorre MD on at 1231 RPT #:[id number] END OF REPORT 2021-02-23 17:18:00-00:00 [facility]ACL [facility] Hospitalist History Physical REPORT#:[id number] REPORT STATUS: Signed DATE:02/23/21 TIME: 1718 PATIENT: CARLITA HERNANDEZ UNIT #: [id number] ROOM/BED: [place] [address] : 39 AGE: 80 SEX: F ATTEND: Shayla James MD ADM AUTHOR: Schuyler Sotelo HAIR WEAVER * ALL edits or amendments must be made on the [employer]/computer document * History of Present Illness HPI [...] normal bowel sounds Musculoskeletal: no CVA tenderness Neuro/VP DATA: alert, oriented X 3, CNII-XII intact Lymphatics: [...] NP on at 1823 at 1302 RPT #:[id number] END OF REPORT 2021-02-23 17:18:00-00:00 [facility]L [facility] ([facility]) Hospitalist History Physical REPORT#:[id number] REPORT STATUS: Signed DATE:02/23/21 TIME: 1718 PATIENT: CARLITA HERNANDEZ UNIT #: [id number] ROOM/BED: [place] [address] : 39 AGE: 80 SEX: F ATTEND: Shayla James MD ADM AUTHOR: Schuyler Sotelo NP * ALL edits or amendments must be made on the [employer]/computer document * History of Present Illness HPI Chief complaint: Persistent atrial fibrillation PCP: PCP: Undefined Provider HPI: Carlita Mahmood is an 80 year old female with [facility] history of atrial fibrillation, COPD, CAD, HLD, [...] normal bowel sounds Musculoskeletal: no CVA tenderness Neuro/VP DATA: alert, oriented X 3, CNII-XII intact Lymphatics: [...] by Schuyler Sotelo NP on at 1823 RPT #:[id number] END OF REPORT 2021-02-23 17:14:00-00:00 [id number] [address] PATIENT NAME: CARLITA HERNANDEZ ADMIT DATE: 02/23/21 ACCOUNT NO: [id number] ROOM NO: NingTRIPP AGE: 80 REPORT TYPE: eECHOCARDIOGRAM REPORT SEX: F ADMITTING PHYSICIAN:Luda Kruse MD ATTENDING PHYSICIAN:Norberto James MD *[address] [address] Transthoracic Echocardiogram Patient: Carlita Hernandez Study Date: 02/23/2021 BP: 108 / 67 Location: [facility] URN: [id number] 13246 : 1940 Age: 80 Height: 64 in / 162.6 cm Gender: F Weight: 119 .9 lb / 54.5 kg BMI/BSA: 20.6 kg/m 2 / 1.57 m 2 *Ordering Physician: * Bekah Wan *Interpreting Physician: * Sergey Alatorre MD *Hand Chain Maker: * Beckie Freeman Indications: Rule out pericardial [...] is no pericardial effusion. PATIENT NAME: CARLITA HERNANDEZ ACCOUNT #: [id number] Measurements Left ventricle Value Ref CHARLIE, LAX [...] PATIENT NAME: CARLITA HERNANDEZ ACCOUNT #: [id number] 2021-02-23 13:56:00-00:00 [id number] [place] [address] PATIENT NAME: CARLITA CABA ADMIT DATE: 02/23/21 ACCOUNT NO: [id number] ROOM NO: GUILLERMO AGE: 80 REPORT TYPE: eELECTROCARDIOGRAM REPORT SEX: F ADMITTING PHYSICIAN:Luda Kruse MD ATTENDING PHYSICIAN:Norberto James MD Order: [id number] Test Reason : WATCHMAN Test Date/Time Stamp: [...] by TERELL CAMACHO MD ([id number]) on 02/24/20 21 4:32:33 PM Referred By: Luda Kruse Confirmed by:TERELL MARTINI MD at 1632 PATIENT NAME: CARLITA CABA ACCOUNT #: [id number] 2021-02-21 13:38:00-00:00 [id number] [place] [address]28 PATIENT NAME: CARLITA CABA ADMIT DATE: ACCOUNT NO: [id number] ROOM NO: AGE: 80 REPORT TYPE: eELECTROCARDIOGRAM REPORT SEX: F ADMITTING PHYSICIAN: ATTENDING PHYSICIAN:Luda Kruse MD Order: [id number] Test Reason : PRE-OP WATCHMAN Test Date/Time [...] ECG No previous ECGs available Confirmed by LEANNE BRITT, TERELL ([id number]) on 02/22/20 2:52:54 PM Referred By: Luda Kruse Confirmed by:TERELL MARTINI MD at 1453 PATIENT NAME: CARLITA CABA ACCOUNT #: [id number]
[2023-06-09] MEDS ORDERED: ONDANSETRON 4 MG/2 ML VIAL ONE ×2 (11:32→15:27)
[2023-06-09 11:35] LABS: Hematocrit 29.3 % (36.0-45.0); Lymphocytes % 8.8 % (15.3-44.8); MPV 8.9 fL (7.6-11.3); Platelets 301 thou/uL (152-406); RBC Red Blood Cell Count 3.75 M/uL (3.86-4.86)
[2023-06-09] MEDS ORDERED: MORPHINE 4 MG/ML SYR ONE ×2 (11:43→15:26)
[2023-06-09 11:59] LABS: Albumin 2.8 g/dL (3.4-5.0); Bilirubin Total 0.3 mg/dL (0.2-1.0); Potassium 4.9 mEq/L (3.5-5.1); Protein, Total 8.1 g/dL (6.4-8.2)
--- NOTE | 2023-06-09 12:36 | RAD REPORT ---
EXAM DESCRIPTION: CT - Abdomen Pelvis Wo Contrast - 06/09/2023 12:24 pm CLINICAL HISTORY: Abdominal pain. ABD PAIN COMPARISON: Abdomen Pelvis W/Wo Contrast dated 08/05/2020 TECHNIQUE: CT imaging of the abdomen and pelvis was performed without contrast. Solid organ, bowel a nd vascular assessment is limited due to lack of IV and oral contrast. All CT scans are performed using dose optimization technique as appropriate and may include automated exposure control or mA/KV adjustment according to patient size. FINDINGS: The lower lung wynn are clear.Small bilateral pleural effusions. Numerous granulomata are seen in the liver and spleen.No aggressive lesion. The spleen, adrenal gland s and kidneys are within normal limits. Trace free fluid is seen in the abdomen and pelvis. There is a large amount of retained stool through out the colon. The small bowel loops are also fluid-filled. This may indicate significant fecal stasi s. The appendix is normal. Moderate air seen in the urinary bladder which is partially decompressed.Moderate lower lumbar degene rative changes. IMPRESSION: Air in the urinary bladder could indicate infection or recent instrumentation. Significant fecal retention and stasis is suspected with secondary mild fluid distention seen through out the small intestine. A limited non-contrast examination was performed as detailed.
[2023-06-09 12:50] LABS: Anisocytosis 2+; Blood Morphology Comment NOTED (NOT SEEN); Platelet Estimate ADEQ; White Blood Cell Scan OK (OK)
[2023-06-09 14:44] LABS: Specific Gravity 1.019 (1.005-1.030); Urine Bacteria 20-50 /HPF (<20); Urine Bilirubin NEGATIVE (Negative); Urine Blood 1+ (Negative); Urine Clarity Extremely Turbid (Clear); Urine Color Yellow (Yellow); Urine Glucose TRACE (Negative); Urine Mucus Slight /HPF (None Seen); Urine Protein 3+ (Negative); Urine RBC <5 /HPF (None Seen); Urine Urobilinogen Normal (Normal); Urine WBC Clump Rare /HPF (None Seen)
--- NOTE | 2023-06-09 15:00 | EDPHYS ---
Physician Documentation [facility] Name: Carlita Villalobos Age: 82 yrs Sex: Female : 1940 Arrival Date: 06/09/2023 Time: 10:45 Bed 8 Private MD: ED Physician Christiano Horton HPI: 06/09 11:26 This 82 yrs old Female presents to ER via Wheelchair with complaints of ms3 Nausea/Vomiting/Diarrhea, Abdominal Pain. 11:26 82-year-old female with past medical history of diabetes, hypertension, hypothyroidism ms3 presents for nausea, vomiting, abdominal pain that began last night. Patient states she is having 10/10 cramping generalized abdominal pain. Patient denies alleviating or inciting factors. Patient endorses chills. Patient denies shortness of breath, chest pain, fevers, diarrhea.. Historical: - Allergies: 11:05 Sulfa (Sulfonamide Antibiotics); ll1 - PMHx: 11:05 Diabetes - IDDM; Hypertension; Hypothyroidism; ll1 - PSHx: 11:05 back surgery; cardiac stents; hysterectomy; Tonsillectomy; colonscopy; ll1 - Immunization history:: Adult Immunizations up to date. - Social history:: Smoking status: Patient denies any tobacco usage or history of. ROS: 11:26 Constitutional: Negative for fever, and chills. Cardiovascular: Negative for chest ms3 pain, and palpitations. Respiratory: Negative for shortness of breath, cough, wheezing, and pleuritic chest pain. 11:26 MS/Extremity: Negative for injury and deformity, Skin: Negative for injury, rash, and discoloration. 11:26 Abdomen/GI: Positive for abdominal pain, nausea, vomiting. 11:26 All other systems are negative. Exam: 11:26 Constitutional: This is a well developed, well nourished patient who is awake, alert, ms3 and in no acute distress. Head/Face: Normocephalic, atraumatic. Neck: Trachea midline, no cervical lymphadenopathy. Supple, full range of motion without nuchal rigidity, or vertebral point tenderness. No Meningismus. Chest/axilla: Normal chest wall appearance and motion. Nontender with no deformity. Cardiovascular: Regular rate and rhythm with a normal S1 and S2. No gallops, murmurs, or rubs. Normal PMI, no JVD. No pulse deficits. Respiratory: Lungs have equal breath sounds bilaterally, clear to auscultation and percussion. No rales, rhonchi or wheezes noted. No increased work of breathing, no retractions or nasal flaring. 11:26 Skin: Warm, dry with normal turgor. Normal color with no rashes, no lesions, and no evidence of cellulitis. MS/ Extremity: Pulses equal, no cyanosis. Neurovascular intact. Full, normal range of motion. 11:26 Abdomen/GI: Inspection: abdomen appears normal, Bowel sounds: normal, Palpation: moderate abdominal tenderness, in all quadrants. 17:10 ECG was reviewed by the Attending Physician. ms3 Vital Signs: 11:06 BP 226 / 65; Pulse 46; Resp 17; Temp 96(O); Pulse Ox 100% on R/A; Pain 10/10; ll1 12:04 BP 169 / 67; Pulse 46; Resp 15; Pulse Ox 99% ; hb 12:16 BP 187 / 66; Pulse 45; me1 12:57 BP 191 / 67; Pulse 43; Resp 18; Pulse Ox 100% on 3 lpm NC; ph 14:01 BP 183 / 66; Pulse 42; Resp 17; Pulse Ox 99% ; hb 15:00 BP 168 / 74; Pulse 42; Resp 18; Pulse Ox 95% on R/A; ph 16:37 BP 153 / 64; Pulse 43; Resp 18; Pulse Ox 94% on R/A; ph 11:06 Pain Scale: Adult ll1 MDM: 11:26 Differential diagnosis: Nonspecific abd pain. ms3 12:11 Patient medically screened. ms3 14:58 Data reviewed: vital signs, nurses notes, lab test result(s), radiologic studies, and ms3 as a result, I will admit patient. Consideration of Admission/Observation Patient was admitted/placed on observation. Management of patient was discussed with the following: Hospitalist: Dr Servin. I considered the following discharge prescriptions or medication management in the emergency department Medications were administered in the Emergency Department. See MAR. Independent interpretation of the following test(s) in the Emergency Department EKG: See my EKG interpretation above. Care significantly affected by the following chronic conditions: Diabetes, Hypertension, hypothyroidism. Counseling: I had a detailed discussion with the patient and/or guardian regarding: the historical points, exam findings, and any diagnostic results supporting the discharge/admit diagnosis, lab results, radiology results, the need for further work-up and treatment in the hospital. Response to treatment: the patient's symptoms have mildly improved after treatment, and as a result, I will admit patient. 06/09 11:11 Order name: CBC with Diff; Complete Time: 13:19 [facility] 06/09 11:11 Order name: CMP; Complete Time: 13:19 [facility] 06/09 11:11 Order name: Lipase; Complete Time: 13:19 [facility] 06/09 11:11 Order name: Urinalysis w/ reflexes; Complete Time: 14:47 [facility] 06/09 11:40 Order name: CBC Smear Scan; Complete Time: 13:19 [facility] 06/09 14:49 Order name: Urine Culture [facility] 06/09 17:04 Order name: Hemoglobin A1c [facility] 06/09 17:04 Order name: Magnesium [facility] 06/09 17:04 Order name: Thyroid Stimulating Hormone [facility] 06/09 17:04 Order name: CBC with Automated Diff [facility] 06/09 17:04 Order name: CBC with Automated Diff [facility] 06/09 17:04 Order name: CBC with Automated Diff [facility] 06/09 17:04 Order name: CBC with Automated Diff [facility] 06/09 17:04 Order name: Comprehensive Metabolic Panel [facility] 06/09 17:04 Order name: Comprehensive Metabolic Panel [facility] 06/09 17:04 Order name: Comprehensive Metabolic Panel [facility] 06/09 17:04 Order name: Comprehensive Metabolic Panel [facility] 06/09 12:12 Order name: Abdomen ; Complete Time: 13:19 [facility] 06/09 13:41 Order name: EKG; Complete Time: 13:42 [facility] 06/09 17:04 Order name: Physical Therapy Consult [facility] 06/09 17:04 Order name: 60g Consistent Carbohydrate (ADA 1800/2000) [facility] 06/09 11:11 Order name: IV Saline Lock; Complete Time: 11:45 ms3 06/09 11:11 Order name: Labs collected and sent; Complete Time: 11:45 [facility] 06/09 13:41 Order name: EKG - Nurse/Tech; Complete Time: 18:17 ms3 EC:10 Rate is 40 beats/min. Rhythm is regular. QRS [place] is Normal. ID interval is normal. ms3 Clinical impression: Sinus bradycardia. Interpreted by me. Reviewed by me. Administered Medications: 11:30 Drug: Ondansetron IVP 4 mg Route: IVP; Site: left antecubital; ph 18:17 Follow up: Response: No adverse reaction; Nausea is decreased ph 11:45 Drug: morphine IVP or IV 4 mg Route: IVP; Infused Over: 4 mins; Site: left antecubital; ph 18:17 Follow up: Response: No adverse reaction; Pain is decreased ph 15:26 Drug: Ondansetron IVP 4 mg Route: IVP; Site: left antecubital; ph 18:18 Follow up: Response: No adverse reaction ph 15:27 Drug: Rocephin IV 1 grams Route: IV; Rate: calculated rate; Site: left antecubital; ph 16:00 Follow up: Response: No adverse reaction; IV Status: Completed infusion ph 15:27 Drug: morphine IVP or IV 4 mg Route: IVP; Infused Over: 4 mins; Site: left antecubital; ph 18:18 Follow up: Response: No adverse reaction; Pain is decreased ph Disposition Summary: 06/09/23 15:00 Hospitalization Ordered Hospitalization Status: Inpatient Admission ms3 Provider: Kapil Servin ms3 Location: Telemetry/MedSurg (Inpatient) ms3 Condition: Stable ms3 Problem: new ms3 Symptoms: are unchanged ms3 Bed/Room Type: Standard ms3 Room Assignment: 202(06/09/23 17:27) ss Diagnosis - UTI/ Urinary tract infection, site not specified ms3 - Pyelonephritis acute ms3 - Vomiting, unspecified ms3 - Anemia, unspecified ms3 - Chronic kidney disease, stage 4 (severe) ms3 Forms: - Medication Reconciliation Form ms3 - SBAR form ms3 Signatures: Dispatcher [employer] EDMS Violet Garcia RN RN ss Shonda Flanagan RN RN ph Lewis, Lynsay, RN RN [facility] Christiano Horton DO DO ms3 Corrections: (The following items were deleted from the chart) 12:12 11:12 Abdomen Pelvis W Con+CT.RAD.BRZ ordered. EDMS EDMS 17:27 15:00 ms3 ss
--- NOTE | 2023-06-09 15:00 | ER ---
Nurse's Notes [facility] Name: Carlita Villalobos Age: 82 yrs Sex: Female : 1940 Arrival Date: 06/09/2023 Time: 10:45 Bed 8 Private MD: Diagnosis: UTI/ Urinary tract infection, site not specified;Pyelonephritis acute;Vomiting, unspecified;Anemia, unspecified;Chronic kidney disease, stage 4 (severe) Presentation: 06/09 11:06 Chief complaint: Patient states: Severe abdominal pain with N/V/D began last night. No ll1 known fever, + chills. Coronavirus screen: Client denies travel out of the [place] in the last 14 days. diarrhea, fatigue, nausea, vomiting. Client presents with at least one sign or symptom that may indicate coronavirus-19. Standard/surgical mask placed on the client. Ebola Screen: Patient denies travel to an Ebola-affected area in the 21 days before illness onset. Initial Sepsis Screen: Does the patient meet any 2 criteria? No. Patient's initial sepsis screen is negative. Does the patient have a suspected source of infection? Yes: Acute abdominal pain. Risk Assessment: Do you want to hurt yourself or someone else? Patient reports no desire to harm self or others. Onset of symptoms was June 08, 2023. 11:06 Method Of Arrival: Wheelchair ll1 11:06 Acuity: PARESH 2 ll1 Triage Assessment: 11:08 General: Appears uncomfortable, ill, Behavior is calm, cooperative, appropriate for ll1 age. Pain: Complains of pain in abdomen Pain currently is 10 out of 10 on a pain scale. Quality of pain is described as aching, crampy. Neuro: Reports weakness. GI: Reports lower abdominal pain, upper abdominal pain, cramping, diarrhea, nausea, vomiting. Historical: - Allergies: 11:05 Sulfa (Sulfonamide Antibiotics); ll1 - PMHx: 11:05 Diabetes - IDDM; Hypertension; Hypothyroidism; ll1 - PSHx: 11:05 back surgery; cardiac stents; hysterectomy; Tonsillectomy; colonscopy; ll1 - Immunization history:: Adult Immunizations up to date. - Social history:: Smoking status: Patient denies any tobacco usage or history of. Screenin:57 [facility] ED Fall Risk Assessment (Adult) History of falling in the last 3 months, ph including since admission No falls in past 3 months (0 pts) Confusion or Disorientation No (0 pts) Intoxicated or Sedated No (0 pts) Impaired Gait No (0 pts) Mobility Assist Device Used No (0 pt) Altered Elimination No (0 pt) Score/Fall Risk Level 0 - 2 = Low Risk Oriented to surroundings, Maintained a safe environment, Provided non-skid footwear, Hourly rounding (assess needs \T\ fall precautionary measures) done. Abuse screen: Denies threats or abuse. Denies injuries from another. Nutritional screening: No deficits noted. Tuberculosis screening: No symptoms or risk factors identified. Assessment: 12:05 Reassessment: Patient appears in no apparent distress at this time. Patient and/or hb family updated on plan of care and expected duration. Pain level reassessed. Patient is alert, oriented x 3, equal unlabored respirations, skin warm/dry/pink. 14:01 Reassessment: Patient appears in no apparent distress at this time. Patient and/or hb family updated on plan of care and expected duration. Pain level reassessed. Patient is alert, oriented x 3, equal unlabored respirations, skin warm/dry/pink. 15:42 Reassessment: Patient appears in no apparent distress at this time. Patient and/or ph family updated on plan of care and expected duration. Pain level reassessed. Patient is alert, oriented x 3, equal unlabored respirations, skin warm/dry/pink. Awaiting transport from [facility]. Vital Signs: 11:06 BP 226 / 65; Pulse 46; Resp 17; Temp 96(O); Pulse Ox 100% on R/A; Pain 10/10; ll1 12:04 BP 169 / 67; Pulse 46; Resp 15; Pulse Ox 99% ; hb 12:16 BP 187 / 66; Pulse 45; me1 12:57 BP 191 / 67; Pulse 43; Resp 18; Pulse Ox 100% on 3 lpm NC; ph 14:01 BP 183 / 66; Pulse 42; Resp 17; Pulse Ox 99% ; hb 15:00 BP 168 / 74; Pulse 42; Resp 18; Pulse Ox 95% on R/A; ph 16:37 BP 153 / 64; Pulse 43; Resp 18; Pulse Ox 94% on R/A; ph 11:06 Pain Scale: Adult ll1 ED Course: 10:50 Patient arrived in ED. ts1 10:59 Arm band placed on Patient placed in an exam room, on a stretcher. ll1 11:00 Christiano Horton DO is Attending Physician. ms3 11:05 Notified ED physician of vital signs. ll1 11:06 Jackelyn Chavez, RN is Primary Nurse. me1 11:08 Triage completed. ll1 11:45 Initial lab(s) drawn, by wa, sent to lab. Inserted saline lock: 22 gauge in left ph antecubital area, using aseptic technique. Blood collected. 12:26 Abdomen In Process Unspecified. EDMS 12:58 Patient has correct armband on for positive identification. ph 14:34 Urinalysis w/ reflexes Sent. hb 14:59 Kapil Servin MD is Hospitalizing Provider. ms3 15:41 No provider procedures requiring assistance completed. IV discontinued, intact, ph bleeding controlled, No redness/swelling at site. Pressure dressing applied. Administered Medications: 11:30 Drug: Ondansetron IVP 4 mg Route: IVP; Site: left antecubital; ph 18:17 Follow up: Response: No adverse reaction; Nausea is decreased ph 11:45 Drug: morphine IVP or IV 4 mg Route: IVP; Infused Over: 4 mins; Site: left antecubital; ph 18:17 Follow up: Response: No adverse reaction; Pain is decreased ph 15:26 Drug: Ondansetron IVP 4 mg Route: IVP; Site: left antecubital; ph 18:18 Follow up: Response: No adverse reaction ph 15:27 Drug: Rocephin IV 1 grams Route: IV; Rate: calculated rate; Site: left antecubital; ph 16:00 Follow up: Response: No adverse reaction; IV Status: Completed infusion ph 15:27 Drug: morphine IVP or IV 4 mg Route: IVP; Infused Over: 4 mins; Site: left antecubital; ph 18:18 Follow up: Response: No adverse reaction; Pain is decreased ph Medication: 12:58 VIS not applicable for this client. ph Outcome: 15:00 Decision to Hospitalize by Provider. ms3 18:18 Admitted to Med/surg accompanied by tech, family with patient, via wheelchair, room ph 202, with chart. 18:18 Condition: stable 18:18 Instructed on the need for admit. 18:29 Patient left the ED. ph Signatures: Dispatcher [employer] Shonda Simmons RN RN Mabel Alvarado RN RN Brooks King RN RN ll1 Christiano Horton DO DO ms3 Ainsley Galvan, PAS PAS ts1 Jackelyn Chavez RN RN me1
[2023-06-09] MEDS ORDERED: NA CHLORIDE 0.9% 50 ML ONE (15:27)
[2023-06-09] MEDS ORDERED: CEFTRIAXONE 1000 MG/VIAL ONE (15:27)
[2023-06-09] MEDS ORDERED: GLUCAGON 1 MG/VIAL IM PRN (16:58)
[2023-06-09] MEDS ORDERED: ONDANSETRON 4 MG/2 ML VIAL IV PRN (16:58)
[2023-06-09] MEDS ORDERED: D50W 25 GM/50 ML SYRINGE IV PRN (16:58)
--- NOTE | 2023-06-09 17:06 | P.HP ---
Certification for Inpatient Patient admitted to: Inpatient With expected LOS: >2 Midnights Patient will require the following post-hospital care: None Practitioner: I am a practitioner with admitting privileges, knowledge of patient current condition, hospital course, and medical plan of care. Services: Services provided to patient in accordance with Admission requirements found in Title 42 Section 412.3 of the Code of Federal Regulations Patient History Date of Service: 06/09/23 Primary Care Provider: Gareth Reason for admission: UTI, nausea and vomitting History of Present Illness: Emani is an office patient of [facility]. she has a history of dementia, dm2, ckd stage 4. Has been vomiting since this morning. The patient came to the ER and was found to have a uti. Her baseline creatine is 1.9. However is 2.98 today. She is awake and responding to questions. The patient still has some nausea. She had no diarrhea, falls, respiratory symptoms. No blood in her vomit. She is otherwise doing well Allergies Sulfa (Sulfonamide Antibiotics) Allergy (Intermediate, Verified 12/14/21 23:25) Nausea/Vomiting/flu like symptoms Home Medications: Aspirin [Aspirin EC 81 MG] 81 mg PO DAILY 12/14/21 Atorvastatin Calcium 40 mg PO BEDTIME 12/14/21 Cholecalciferol (Vitamin D3) [Vitamin D 1000 Iu Tab] 1,000 unit PO DAILY 12/14/21 Clopidogrel Bisulfate [Plavix] 75 mg PO DAILY 12/14/21 Levothyroxine [Synthroid] 88 mcg PO [id number] 12/14/21 Memantine HCl 5 mg PO DAILY 12/14/21 Metoprolol Tartrate 25 mg PO BID 12/14/21 Montelukast [Singulair] 10 mg PO DAILY 12/14/21 Telmisartan 40 mg PO DAILY 12/14/21 Fluticasone [Flonase 50MCG Nasal [place]*] 1 spray IH PRN PRN 12/17/21 Fluticasone/Salmeterol [Advair Hfa 45-21 Mcg Inhaler] 1 puff IH BID 12/17/21 Albuterol Sulfate [Albuterol Sulfate Hfa] 1 puff IH Q6H PRN 03/28/23 Insulin Degludec [Tresiba Flextouch U-100] 32 unit SQ DAILY 03/28/23 Mecobalamin [B12 Active] 1 tab PO DAILY 03/28/23 Amiodarone HCl [Cordarone*] 200 mg PO BID 30 Days #60 tab 03/29/23 - Past Medical/Surgical History Diabetic: Yes -: Diabetes mellitus type 2 insulin-dependent -: Hypothyroidism -: Atrial fibrillation not on chronic anti coagulation therapy -: COPD -: HTN -: History of MAC pulmonary infection -: Back surgery -: Hysterectomy -: Bladder suspension -: Benign tumor removed from right arm -: Tonsillectomy -: Thyroid nodule removed with some thyroid Psychosocial/ Personal History: , 4-children, She does not work. - Family History Father -: Heart disease, Diabetes Notes: Sister -: Diabetes Mother -: Diabetes Brother -: Diabetes - Social History Alcohol use: No CD- Drugs: No Caffeine use: Yes Review of Systems 10-point ROS is otherwise unremarkable General: Weakness Gastrointestinal: Nausea, Vomiting Physical Examination - Physical Exam General: Alert, In no apparent distress HEENT: Atraumatic, PERRLA, Mucous membr. moist/pink, EOMI, Sclerae nonicteric Neck: Supple, 2+ carotid pulse no bruit, No LAD, Without JVD or thyroid abnormality Respiratory: Clear to auscultation bilaterally, Normal air movement Cardiovascular: Regular rate/rhythm, Normal S1 S2 Gastrointestinal: Normal bowel sounds, No tenderness Musculoskeletal: No tenderness Integumentary: No rashes Neurological: Normal gait, Normal speech, Normal strength at 5/5 x4 extr, Normal tone, Normal affect Lymphatics: No axilla or inguinal lymphadenopathy - Studies Laboratory Data (last 24 hrs) 06/09/23 06/09/23 11:25 11:25 WBC 11.00 H Hgb 9.0 L Hct 29.3 L Plt Count 301 Sodium 135 L Potassium 4.9 BUN 58 H Creatinine 2.98 H Glucose 177 H Total Bilirubin 0.3 AST 18 ALT 37 Alkaline Phosphatase 207 H Lipase 52 Assessment and Plan - Problems (Diagnosis) (1) UTI (urinary tract infection) Current Visit: Yes Status: Acute Plan: will start the patient on ceftriaxone, fluids and zofran for nausea. Qualifiers: Urinary tract infection type: acute cystitis Hematuria presence: without hematuria Qualified Code(s): N30.00 - Acute cystitis without hematuria (2) Acute on chronic renal failure Current Visit: Yes Status: Acute Plan: will gently hydrate the patient and follow the creatine. She sees, Dr. Rodriguez as an outpatient. If she does not turn around in 24 hours we can consult him. As stated above her baseline creatine is approx 1.9 Qualifiers: Acute renal failure type: unspecified Chronic kidney disease stage: stage 4 (severe) Qualified Code(s): N17.9 - Acute kidney failure, unspecified; N18.4 - Chronic kidney disease, stage 4 (severe) (3) Atrial fibrillation Onset Date: 11/15/15 Current Visit: No Status: Chronic Plan: currently bradycardic. will hold any beta blockers, Qualifiers: Atrial fibrillation type: paroxysmal Qualified Code(s): I48.0 - Paroxysmal atrial fibrillation (4) DM2 (diabetes mellitus, type 2) Current Visit: No Status: Chronic Plan: will start her on a low dose sliding scale. Will need to check her regular insulin. Hold for today as she is not eating. Will keep her on the hypoglycemic protochol in case she has a low blood sugar. 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
[2023-06-09] MEDS ORDERED: D10W 125 ML IV PRN (17:23)
[2023-06-09] MEDS: NA CHLORIDE 0.9% 1,000 ML IV SCH (19:19)
[2023-06-09] MEDS: INSULIN -REGULAR HUMAN 50 UNIT/0.5 ML ML SQ SCH (21:00)
[2023-06-09] MEDS: PROMETHAZINE INJ 25 MG/ML AMP IV PRN (22:03)
[2023-06-09] MEDS: ENOXAPARIN 30 MG/0.3 ML SQ SCH (22:03)
[2023-06-10 06:31] LABS: Absolute Lymphocytes (CBC) 0.2 K/uL (0.7-4.9); Hematocrit 25.3 % (36.0-45.0); MPV 9.2 fL (7.6-11.3); Platelets 229 thou/uL (152-406)
[2023-06-10 06:46] LABS: Albumin 2.4 g/dL (3.4-5.0); Bilirubin Total 0.3 mg/dL (0.2-1.0); Magnesium 1.6 mg/dL (1.6-2.4); Potassium 5.5 mEq/L (3.5-5.1); Protein, Total 6.7 g/dL (6.4-8.2); Thyroid Stimulating Hormone 1.54 uIU/mL (0.358-3.740)
[2023-06-10] MEDS: INSULIN -REGULAR HUMAN 50 UNIT/0.5 ML ML SQ SCH ×4 (07:30→21:00)
[2023-06-10] MEDS: NA CHLORIDE 0.9% 1,000 ML IV SCH ×2 (08:34→21:19)
[2023-06-10] MEDS ORDERED: MAGNESIUM SULFATE 1 gm IVPB 1 GM/100 ML BAG IV ONE (09:00)
--- NOTE | 2023-06-10 13:10 | EKG ---
Test Date: 2023-06-09 Test Time: 16:26:45 Patrol Mother: PH MEASUREMENT RESULTS: Intervals: Rate: 40 MO: 192 QRSD: 90 QT: 566 QTc: 461 [place]: P: 76 MO: 192 QRS: 61 T: 87 INTERPRETIVE STATEMENTS: Marked sinus bradycardia with marked sinus arrhythmia Abnormal ECG Compared to ECG 03/28/2023 12:52:28 Atrial fibrillation no longer present ST (T wave) deviation no longer present Electronically Signed On 06-10-23 13:10:05 CDT by Jose C Kruse
--- NOTE | 2023-06-10 13:49 | P.PN ---
Subjective Date of Service: 06/10/23 Primary Care Provider: Gareth Chief Complaint: UTI, nausea and vomitting Subjective: Improving (no nausea. Slight improvement in her creatine) Review of Systems 10-point ROS is otherwise unremarkable Gastrointestinal: Abdominal Pain Physical Examination - Vital Signs Temperature: 99.3 F Blood Pressure: 137/57 Pulse: 60 Respirations: 14 Pulse Ox (%): 97 - Physical Exam General: Alert, In no apparent distress HEENT: Atraumatic, PERRLA, EOMI Neck: Supple, JVD not distended Respiratory: Clear to auscultation bilaterally, Normal air movement Cardiovascular: Regular rate/rhythm, Normal S1 S2 Gastrointestinal: Normal bowel sounds, No tenderness Musculoskeletal: No tenderness Integumentary: No rashes Neurological: Normal speech, Normal tone, Normal affect Lymphatics: No axilla or inguinal lymphadenopathy Assessment And Plan - Current Problems (Diagnosis) (1) Atrial fibrillation Onset Date: 11/15/15 Current Visit: No Status: Chronic Plan: currently bradycardic. will hold any beta blockers, 7.30 bradycardia is improving. Will hold the metoprolol and restart the amiodarone. Will need to stop if she has repeated bradycardia. Will order telemetry on the patient . Qualifiers: Atrial fibrillation type: paroxysmal Qualified Code(s): I48.0 - Paroxysmal atrial fibrillation (2) UTI (urinary tract infection) Current Visit: Yes Status: Acute Plan: will start the patient on ceftriaxone, fluids and zofran for nausea. Qualifiers: Urinary tract infection type: acute cystitis Hematuria presence: without hematuria Qualified Code(s): N30.00 - Acute cystitis without hematuria (3) Acute on chronic renal failure Current Visit: Yes Status: Acute Plan: will gently hydrate the patient and follow the creatine. She sees, Dr. Rodriguez as an outpatient. If she does not turn around in 24 hours we can consult him. As stated above her baseline creatine is approx 1.9 7.30 slight improvement. Will continue fluids. Need to be careful that there is no fluid overload Qualifiers: Acute renal failure type: unspecified Chronic kidney disease stage: stage 4 (severe) Qualified Code(s): N17.9 - Acute kidney failure, unspecified; N18.4 - Chronic kidney disease, stage 4 (severe) (4) DM2 (diabetes mellitus, type 2) Current Visit: No Status: Chronic Plan: will start her on a low dose sliding scale. Will need to check her regular insulin. Hold for today as she is not eating. Will keep her on the hypoglycemic protochol in case she has a low blood sugar. Qualifiers: Diabetes mellitus assisted insulin use: with terminal supervisor use Diabetes mellitus complication detail: with chronic kidney disease Chronic kidney disease stage: stage 4 (severe) Discharge Plan: Home Plan to discharge in: Greater than 2 days - Code Status/Comfort Care Code Status Assessed: No Physician Review: Patient Assessed, Agree with Above Assessment and Plan Critical Care: No Time Spent Managing PTS Care (In Minutes): 25
[2023-06-10] MEDS: ENOXAPARIN 30 MG/0.3 ML SQ SCH (17:00)
[2023-06-10] MEDS ORDERED: CEFTRIAXONE 1,000 MG in NA CHLORIDE 0.9% 50 ML IVPB SCH (18:00)
[2023-06-10] MEDS: FLUTICASONE IH SCH (21:00)
[2023-06-10] MEDS: SALMETEROL IH SCH (21:00)
[2023-06-10] MEDS: AMIODARONE HCL 200 MG TAB PO SCH (21:12)
[2023-06-11] MEDS: LEVOTHYROXINE SOD 0.075 MG TAB PO SCH (05:47)
[2023-06-11 07:24] LABS: Bilirubin Total 0.2 mg/dL (0.2-1.0); Magnesium 1.8 mg/dL (1.6-2.4); Potassium 5.3 mEq/L (3.5-5.1); Protein, Total 5.5 g/dL (6.4-8.2)
[2023-06-11] MEDS: INSULIN -REGULAR HUMAN 50 UNIT/0.5 ML ML SQ SCH ×4 (07:30→21:10)
--- NOTE | 2023-06-11 08:39 | P.PN ---
Subjective Date of Service: 06/11/23 Primary Care Provider: Gareth Chief Complaint: UTI, nausea and vomitting Subjective: No new changes Review of Systems 10-point ROS is otherwise unremarkable Physical Examination - Vital Signs Temperature: 98.4 F Blood Pressure: 187/61 Pulse: 56 Respirations: 16 Pulse Ox (%): 100 - Physical Exam General: Alert, In no apparent distress HEENT: Atraumatic, PERRLA, EOMI Neck: Supple, JVD not distended Respiratory: Clear to auscultation bilaterally, Normal air movement Cardiovascular: Regular rate/rhythm, Normal S1 S2 Gastrointestinal: Normal bowel sounds, No tenderness Musculoskeletal: No tenderness Integumentary: No rashes Neurological: Normal speech, Normal tone, Normal affect Lymphatics: No axilla or inguinal lymphadenopathy - Studies Microbiology Data (last 24 hrs): 06/09/23 14:32 Clean Catch Urine Bruce Count - Final >100,000 CFU/ML. 06/09/23 14:32 Clean Catch Urine - Final Klebsiella Pneumoniae Assessment And Plan - Current Problems (Diagnosis) (1) Atrial fibrillation Onset Date: 11/15/15 Current Visit: No Status: Chronic Plan: currently bradycardic. will hold any beta blockers, 7.30 bradycardia is improving. Will hold the metoprolol and restart the amiodarone. Will need to stop if she has repeated bradycardia. Will order telemetry on the patient . Qualifiers: Atrial fibrillation type: paroxysmal Qualified Code(s): I48.0 - Paroxysmal atrial fibrillation (2) UTI (urinary tract infection) Current Visit: Yes Status: Acute Plan: will start the patient on ceftriaxone, fluids and zofran for nausea. 7.31 Klebsiella in the urine. Will switch from ceftriaxone to levofloxacin Qualifiers: Urinary tract infection type: acute cystitis Hematuria presence: without hematuria Qualified Code(s): N30.00 - Acute cystitis without hematuria (3) Acute on chronic renal failure Current Visit: Yes Status: Acute Plan: will gently hydrate the patient and follow the creatine. She sees, Dr. Rodriguez as an outpatient. If she does not turn around in 24 hours we can consult him. As stated above her baseline creatine is approx 1.[address] Rodriguez's group Qualifiers: Acute renal failure type: unspecified Chronic kidney disease stage: stage 4 (severe) Qualified Code(s): N17.9 - Acute kidney failure, unspecified; N18.4 - Chronic kidney disease, stage 4 (severe) (4) DM2 (diabetes mellitus, type 2) Current Visit: No Status: Chronic Plan: will start her on a low dose sliding scale. Will need to check her regular insulin. Hold for today as she is not eating. Will keep her on the hypoglycemic protochol in case she has a low blood sugar. Qualifiers: Diabetes mellitus superintendent transportation insulin use: with superintendent transportation use Diabetes mellitus complication detail: with chronic kidney disease Chronic kidney disease stage: stage 4 (severe) Discharge Plan: Home Plan to discharge in: 24 Hours - Code Status/Comfort Care Code Status Assessed: No Physician Review: Patient Assessed, Agree with Above Assessment and Plan Critical Care: No Time Spent Managing PTS Care (In Minutes): 20
[2023-06-11] MEDS: INSULN SQ SCH (09:00)
[2023-06-11] MEDS: FLUTICASONE IH SCH ×2 (09:00→21:00)
[2023-06-11] MEDS: TRESIBA U SQ SCH (09:00)
[2023-06-11] MEDS: SALMETEROL IH SCH ×2 (09:00→21:00)
[2023-06-11] MEDS ORDERED: Levofloxacin500mg IV 500 MG/100 ML BAG IV ONE (09:00)
[2023-06-11] MEDS: NA CHLORIDE 0.9% 1,000 ML IV SCH ×2 (09:21→17:07)
[2023-06-11] MEDS: AMIODARONE HCL 200 MG TAB PO SCH ×2 (09:22→21:10)
[2023-06-11] MEDS: VITAMIN D 1000 UNIT TAB PO SCH (09:22)
[2023-06-11] MEDS: MEMANTINE HCL 10 MG TABLET PO SCH (09:23)
[2023-06-11] MEDS: CLOPIDOGREL 75 MG TABLET PO SCH (09:23)
[2023-06-11] MEDS: ISOSORBIDE MONO SR 30 MG TAB PO SCH (09:23)
[2023-06-11] MEDS: ASPIRIN EC 81 MG TAB PO SCH (09:23)
[2023-06-11 10:08] LABS: Absolute Lymphocytes (CBC) 1.3 K/uL (0.7-4.9); Hematocrit 24.9 % (36.0-45.0); MCV 80.2 fL (80-100); Platelets 208 thou/uL (152-406)
--- NOTE | 2023-06-11 16:31 | P.CNS ---
Date of Consult: 06/11/23 Reason for Consult: LEE ANN, CKD IV Requesting Physician: Kapil Servin Primary Care Provider: Gareth Chief Complaint: UTI, nausea and vomitting History of Present Illness: Patient is an elderly female with hx of IDDM, chronic HTN on anti hypertensives, a hx of CKD IV under the care of Dr. Rodriguez who reports recently developing lower abdominal pain, bladder spasms, malaise and some N/V. She was found to have abnormal UA on admission c/w UTI. Renal function was also worse from baseline. She was started on IVF and Abx and reports some improvement. She denies any difficult emptying her bladder and imaging did not reveal any urinary retention issues. Allergies Sulfa (Sulfonamide Antibiotics) Allergy (Intermediate, Verified 12/14/21 23:25) Nausea/Vomiting/flu like symptoms Home Medications: Aspirin [Aspirin EC 81 MG] 81 mg PO DAILY 12/14/21 Cholecalciferol (Vitamin D3) [Vitamin D 1000 Iu Tab] 1,000 unit PO DAILY 12/14/21 Clopidogrel Bisulfate [Plavix] 75 mg PO DAILY 12/14/21 Levothyroxine [Synthroid] 75 mcg PO [id number] 12/14/21 Memantine HCl 5 mg PO DAILY 12/14/21 Metoprolol Tartrate 25 mg PO BID 12/14/21 Montelukast [Singulair] 10 mg PO DAILY 12/14/21 Telmisartan 40 mg PO DAILY 12/14/21 Fluticasone/Salmeterol [Advair Hfa 45-21 Mcg Inhaler] 1 puff IH BID 12/17/21 Albuterol Sulfate [Albuterol Sulfate Hfa] 1 puff IH Q6H PRN 03/28/23 Insulin Degludec [Tresiba Flextouch U-100] 32 unit SQ DAILY 03/28/23 Mecobalamin [B12 Active] 1 tab PO DAILY 03/28/23 Amiodarone HCl [Cordarone*] 200 mg PO BID 30 Days #60 tab 03/29/23 Furosemide [Lasix*] 20 mg PO DAILY 06/10/23 Hydralazine [Apresoline*] 10 mg PO TID PRN 06/10/23 - Past Medical/Surgical History Diabetic: Yes -: Diabetes mellitus type 2 insulin-dependent -: Hypothyroidism -: Atrial fibrillation not on chronic anti coagulation therapy -: COPD -: HTN -: History of MAC pulmonary infection -: CHF -: Anemia -: Frequent UTI's -: Back surgery x2 -: Hysterectomy -: Bladder suspension -: 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 - Family History Father Medical History: Heart disease, Diabetes Notes: Sister Medical History: Diabetes Mother Medical History: Diabetes Brother Medical History: Diabetes - Social History Smoking Status: Former smoker Alcohol use: Yes CD- Drugs: No Caffeine use: Yes Place of Residence: Home Review of Systems General: Weakness, Malaise Respiratory: Shortness of Breath Gastrointestinal: Nausea, Vomiting, Abdominal Pain, Constipation Genitourinary: Other (Abnormal UA, positive UCx), As per HPI Musculoskeletal: Back Pain Neurological: Weakness Physical Examination Temp Pulse Resp BP Pulse Ox 97.5 F 80 12 136/65 96 06/11/23 12:00 06/11/23 12:00 06/11/23 12:00 06/11/23 12:00 06/11/23 12:00 General: Alert, Cooperative HEENT: Atraumatic, Normocephalic Neck: Supple Respiratory: Clear to auscultation bilaterally, Normal air movement Cardiovascular: No edema, Regular rate/rhythm Gastrointestinal: Soft and benign, Non-distended, No tenderness Musculoskeletal: No swelling, No tenderness Integumentary: No rashes, No tenderness/swelling Neurological: Normal speech, Normal tone, Normal affect Conclusions/Impression: A/P) 1. Stage I LEE ANN on underlying CKD IV in the setting of complicated UTI, possible mild pre-renal component with concurrent mod dose strength ARB use although no downward trend seen in Cr level(s) with initial volume administration raising the possibility of some intrinsic injury although automated UA did not mention any granular casts. Mild hyperkalemia, trend on labs, hold ARB, will hold off on cation exchangers as level only mildly elevated and < 5.[address] had shown constipation. 2. Complicated UTI, Klebsiella bacteriuria on admission, likely primarily cystitis with no evidence of hydronephrosis on imaging although can not rule out some pyelo with reports of abdominal/back pain. 3. Based on urine culture sensitivities, cont fluroquinolone IV Abx, dose renally for reduced CrCl 4. Chronic hypertensive CKD Hx. Labile HTN with elevated BP noted, cont to hold ARB and diuretics, will lower rate of IVF, will add lower dose CCB. 5. Hx of proteinuria, pt with severe hypoalbuminemia (unspecified as far as etiology but presumably with some mild to mod protein calorie malnutrition as both total protein and albumin reduced but will need to question pt on her nutritional intake) noted on labs, will check spot urine study 6. Microcytic anemia, severe, indexes would suggest iron deficiency, will order iron studies to investigate. If pt is on anti platelet therapy, may need to check FOBT Tawanda Brooks MD, SULEMAN
[2023-06-11] MEDS: ENOXAPARIN 30 MG/0.3 ML SQ SCH (17:04)
[2023-06-11] MEDS: AMLODIPINE 2.5 MG TAB PO SCH (21:00)
[2023-06-12 02:16] LABS: UR PROTEIN 239.9 mg/dL (<11.9); Urine Protein/Creatinine Ratio 3.93 ratio (<0.15)
[2023-06-12] MEDS: LEVOTHYROXINE SOD 0.075 MG TAB PO SCH (05:40)
[2023-06-12 07:08] LABS: Absolute Lymphocytes (CBC) 1.1 K/uL (0.7-4.9); Hematocrit 22.5 % (36.0-45.0); Lymphocytes % 22.8 % (15.3-44.8); MCV 79.8 fL (80-100); MPV 9.1 fL (7.6-11.3); Platelets 178 thou/uL (152-406); RBC Red Blood Cell Count 2.81 M/uL (3.86-4.86)
[2023-06-12 07:15] LABS: Bilirubin Total 0.2 mg/dL (0.2-1.0); Potassium 5.1 mEq/L (3.5-5.1)
[2023-06-12] MEDS: INSULIN -REGULAR HUMAN 50 UNIT/0.5 ML ML SQ SCH ×4 (07:30→20:43)
[2023-06-12 07:33] LABS: Phosphorus 4.3 mg/dL (2.5-4.9)
[2023-06-12 07:49] LABS: Prealbumin 11.2 mg/dL (20-40)
[2023-06-12 08:20] LABS: Anisocytosis 3+; Blood Morphology Comment NOTED (NOT SEEN); Platelet Estimate ADEQ; White Blood Cell Scan OK (OK)
--- NOTE | 2023-06-12 08:27 | P.PN ---
Subjective Date of Service: 06/12/23 Primary Care Provider: Gareth Chief Complaint: UTI, nausea and vomitting Subjective: No new changes Review of Systems 10-point ROS is otherwise unremarkable Physical Examination - Vital Signs Temperature: 98.3 F Blood Pressure: 154/76 Pulse: 55 Respirations: 16 Pulse Ox (%): 99 - Physical Exam General: Alert, In no apparent distress HEENT: Atraumatic, PERRLA, EOMI Neck: Supple, JVD not distended Respiratory: Clear to auscultation bilaterally, Normal air movement Cardiovascular: Regular rate/rhythm, Normal S1 S2 Gastrointestinal: Normal bowel sounds, No tenderness Musculoskeletal: No tenderness Integumentary: No rashes Neurological: Normal speech, Normal tone, Normal affect Lymphatics: No axilla or inguinal lymphadenopathy - Studies Microbiology Data (last 24 hrs): 06/09/23 14:32 Clean Catch Urine Morton Count - Final >100,000 CFU/ML. 06/09/23 14:32 Clean Catch Urine - Final Klebsiella Pneumoniae Assessment And Plan - Current Problems (Diagnosis) (1) Atrial fibrillation Onset Date: 11/15/15 Current Visit: No Status: Chronic Plan: currently bradycardic. will hold any beta blockers, 7.30 bradycardia is improving. Will hold the metoprolol and restart the amiodarone. Will need to stop if she has repeated bradycardia. Will order telemetry on the patient . Qualifiers: Atrial fibrillation type: paroxysmal Qualified Code(s): I48.0 - Paroxysmal atrial fibrillation (2) UTI (urinary tract infection) Current Visit: Yes Status: Acute Plan: will start the patient on ceftriaxone, fluids and zofran for nausea. 7.31 Klebsiella in the urine. Will switch from ceftriaxone to levofloxacin Qualifiers: Urinary tract infection type: acute cystitis Hematuria presence: without hematuria Qualified Code(s): N30.00 - Acute cystitis without hematuria (3) Acute on chronic renal failure Current Visit: Yes Status: Acute Plan: will gently hydrate the patient and follow the creatine. She sees, Dr. Rodriguez as an outpatient. If she does not turn around in 24 hours we can consult him. As stated above her baseline creatine is approx 1.[address] Brooks Qualifiers: Acute renal failure type: unspecified Chronic kidney disease stage: stage 4 (severe) Qualified Code(s): N17.9 - Acute kidney failure, unspecified; N18.4 - Chronic kidney disease, stage 4 (severe) (4) DM2 (diabetes mellitus, type 2) Current Visit: No Status: Chronic Plan: will start her on a low dose sliding scale. Will need to check her regular insulin. Hold for today as she is not eating. Will keep her on the hypoglycemic protochol in case she has a low blood sugar. Qualifiers: Diabetes mellitus detention insulin use: with supervisor intermediates use Diabetes mellitus complication detail: with chronic kidney disease Chronic kidney disease stage: stage 4 (severe) Discharge Plan: Home Plan to discharge in: 24 Hours - Code Status/Comfort Care Code Status Assessed: No Physician Review: Patient Assessed, Agree with Above Assessment and Plan Critical Care: No Time Spent Managing PTS Care (In Minutes): 20
[2023-06-12] MEDS: SALMETEROL IH SCH ×2 (09:00→20:38)
[2023-06-12] MEDS: INSULN SQ SCH (09:00)
[2023-06-12] MEDS: FLUTICASONE IH SCH ×2 (09:00→20:38)
[2023-06-12] MEDS: TRESIBA U SQ SCH (09:00)
[2023-06-12] MEDS: NA CHLORIDE 0.9% 1,000 ML IV SCH (09:23)
[2023-06-12] MEDS: ISOSORBIDE MONO SR 30 MG TAB PO SCH (09:24)
[2023-06-12] MEDS: VITAMIN D 1000 UNIT TAB PO SCH (09:24)
[2023-06-12] MEDS: CLOPIDOGREL 75 MG TABLET PO SCH (09:24)
[2023-06-12] MEDS: ASPIRIN EC 81 MG TAB PO SCH (09:25)
[2023-06-12] MEDS: MEMANTINE HCL 10 MG TABLET PO SCH (09:25)
[2023-06-12] MEDS: AMLODIPINE 2.5 MG TAB PO SCH (09:25)
[2023-06-12] MEDS: AMIODARONE HCL 200 MG TAB PO SCH ×2 (09:25→20:38)
[2023-06-12 11:46] LABS: RBC Red Blood Cell Count 2.82 M/uL (3.86-4.86)
--- NOTE | 2023-06-12 12:09 | P.PN ---
(S) Drop in H/H noted, PRBC transfusion ordered by Dr. Servin, pt endorses some (chronic) shortness of breath, she reports some dark stools in the past, reports a recent colonoscopy about two weeks ago (O) vitals reviewed in the EMR General: Alert, Cooperative HEENT: Atraumatic, Normocephalic Neck: Supple Respiratory: Clear to auscultation bilaterally, Normal air movement Cardiovascular: No edema, Regular rate/rhythm Gastrointestinal: Soft and benign, Non-distended, No tenderness Musculoskeletal: No swelling, No tenderness Integumentary: No rashes, No tenderness/swelling Neurological: Normal speech, Normal tone, Normal affect Conclusions/Impression: A/P) 1. Stage I LEE ANN on underlying CKD IV in the setting of complicated UTI, possible mild pre-renal component with concurrent mod dose strength ARB use although no significant downward trend seen in Cr level(s) with initial volume administration raising the possibility of some intrinsic injury although automated UA did not mention any granular casts. Renal function remains plateaued. K at ULN, cont to hold ARB, will d/c maintenance IVF. 2. Complicated UTI, Klebsiella bacteriuria on admission, likely primarily cystitis with no evidence of hydronephrosis on imaging although can not rule out some pyelo with reports of abdominal/back pain. 3. Based on urine culture sensitivities, on fluroquinolone IV Abx, dose renally for reduced CrCl. Switch to PO Abx to complete 7 day course. 4. Chronic hypertensive CKD Hx. Labile HTN with elevated BP noted, cont to hold ARB and diuretics for now, will d/c IVF, did add lower dose CCB. 5. Hx of proteinuria, pt with severe hypoalbuminemia (with some mod protein calorie malnutrition as both total protein and pre-albumin level low) noted on labs, did check spot urine study which does show nephrotic range proteinuria with > 3.5 g/day. Will need to repeat as an OP (preferably with 24h urine study but will wait until LEE ANN/infection/illness resolved). 6. Microcytic anemia, severe, indexes did suggest iron deficiency and iron studies confirmed. Since pt is on anti platelet therapy, recommend checking FOBT. Agree with blood transfusion, assess response, pt reports possible EGD plan after colonoscopy. Tawanda Brooks MD, SULEMAN
[2023-06-12] MEDS: ENOXAPARIN 30 MG/0.3 ML SQ SCH (16:21)
[2023-06-12] MEDS: FERROUS SULFATE 325 MG TAB PO SCH (16:31)
[2023-06-12] MEDS: HYDRALAZINE HCL 20 MG/ML VIAL IV PRN (16:31)
[2023-06-12 20:23] LABS: Hematocrit 27.6 % (36.0-45.0)
[2023-06-12] MEDS: PROMETHAZINE INJ 25 MG/ML AMP IV PRN (23:33)
[2023-06-13 04:06] LABS: Magnesium 1.6 mg/dL (1.6-2.4); Potassium 5.5 mEq/L (3.5-5.1)
[2023-06-13] MEDS ORDERED: MAGNESIUM SULFATE 1 gm IVPB 1 GM/100 ML BAG IV ONE (06:00)
[2023-06-13] MEDS: LEVOTHYROXINE SOD 0.075 MG TAB PO SCH (06:26)
[2023-06-13] MEDS: HYDRALAZINE HCL 20 MG/ML VIAL IV PRN (06:27)
[2023-06-13] MEDS: INSULIN -REGULAR HUMAN 50 UNIT/0.5 ML ML SQ SCH ×4 (08:42→21:00)
[2023-06-13] MEDS: AMIODARONE HCL 200 MG TAB PO SCH ×2 (08:43→19:56)
[2023-06-13] MEDS: SALMETEROL IH SCH ×2 (08:43→19:58)
[2023-06-13] MEDS: VITAMIN D 1000 UNIT TAB PO SCH (08:43)
[2023-06-13] MEDS: INSULN SQ SCH (08:43)
[2023-06-13] MEDS: FLUTICASONE IH SCH ×2 (08:43→19:58)
[2023-06-13] MEDS: FERROUS SULFATE 325 MG TAB PO SCH (08:43)
[2023-06-13] MEDS: CLOPIDOGREL 75 MG TABLET PO SCH (08:43)
[2023-06-13] MEDS: AMLODIPINE 2.5 MG TAB PO SCH (08:43)
[2023-06-13] MEDS: TRESIBA U SQ SCH (08:43)
[2023-06-13] MEDS: ASPIRIN EC 81 MG TAB PO SCH (08:43)
[2023-06-13] MEDS: ISOSORBIDE MONO SR 60 MG TAB PO SCH (08:43)
[2023-06-13] MEDS: MEMANTINE HCL 10 MG TABLET PO SCH (08:44)
[2023-06-13] MEDS ORDERED: Levofloxacin 250mg IV 250 MG/50 ML BAG IV SCH (09:00)
--- NOTE | 2023-06-13 09:54 | P.PN ---
Subjective Date of Service: 06/13/23 Primary Care Provider: Gareth Chief Complaint: UTI, nausea and vomitting Subjective: New changes (had a unit transfused yesterday) Review of Systems 10-point ROS is otherwise unremarkable Physical Examination - Vital Signs Temperature: 97.1 F Blood Pressure: 182/85 Pulse: 66 Respirations: 16 Pulse Ox (%): 84 - Physical Exam General: Alert, In no apparent distress HEENT: Atraumatic, PERRLA, EOMI Neck: Supple, JVD not distended Respiratory: Clear to auscultation bilaterally, Normal air movement Cardiovascular: Regular rate/rhythm, Normal S1 S2 Gastrointestinal: Normal bowel sounds, No tenderness Musculoskeletal: No tenderness Integumentary: No rashes Neurological: Normal speech, Normal tone, Normal affect Lymphatics: No axilla or inguinal lymphadenopathy Assessment And Plan - Current Problems (Diagnosis) (1) Atrial fibrillation Onset Date: 11/15/15 Current Visit: No Status: Chronic Plan: currently bradycardic. will hold any beta blockers, 7.30 bradycardia is improving. Will hold the metoprolol and restart the amiodarone. Will need to stop if she has repeated bradycardia. Will order telemetry on the patient . Qualifiers: Atrial fibrillation type: paroxysmal Qualified Code(s): I48.0 - Paroxysmal atrial fibrillation (2) UTI (urinary tract infection) Current Visit: Yes Status: Acute Plan: will start the patient on ceftriaxone, fluids and zofran for nausea. 7.31 Klebsiella in the urine. Will switch from ceftriaxone to levofloxacin Qualifiers: Urinary tract infection type: acute cystitis Hematuria presence: without hematuria Qualified Code(s): N30.00 - Acute cystitis without hematuria (3) Acute on chronic renal failure Current Visit: Yes Status: Acute Plan: will gently hydrate the patient and follow the creatine. She sees, Dr. Rodriguez as an outpatient. If she does not turn around in 24 hours we can consult him. As stated above her baseline creatine is approx 1.[address] Brooks 8.2 Patient is not moving much. Will need to control her blood sugars and bp better. Increased the isosorbide and insulin Qualifiers: Acute renal failure type: unspecified Chronic kidney disease stage: stage 4 (severe) Qualified Code(s): N17.9 - Acute kidney failure, unspecified; N18.4 - Chronic kidney disease, stage 4 (severe) (4) DM2 (diabetes mellitus, type 2) Current Visit: No Status: Chronic Plan: will start her on a low dose sliding scale. Will need to check her regular insulin. Hold for today as she is not eating. Will keep her on the hypoglycemic protochol in case she has a low blood sugar. Qualifiers: Diabetes mellitus long-term insulin use: with long-term use Diabetes mellitus complication detail: with chronic kidney disease Chronic kidney disease stage: stage 4 (severe) (5) Anemia Current Visit: No Status: Acute Plan: Had a unit transfused today. She had an outpatient colonoscopy a week or 2 ago. Which was negative. Have spoken to Dr. Freeman. The patient may be having anemia due to CKD. Will discuss with Dr. Brooks regarding epo Qualifiers: Anemia type: iron deficiency Iron deficiency anemia type: unspecified iron deficiency Qualified Code(s): D50.9 - Iron deficiency anemia, unspecified Discharge Plan: Home Plan to discharge in: 24 Hours Physician Review: Patient Assessed, Agree with Above Assessment and Plan Critical Care: No Time Spent Managing PTS Care (In Minutes): 35
[2023-06-13] MEDS ORDERED: AMLODIPINE 2.5 MG TAB PO ONE (11:30)
[2023-06-13] MEDS ORDERED: SODIUM ZIRCONIUM CYCLOSILICATE 10 GM/PKT PO ONE (11:30)
[2023-06-13] MEDS ORDERED: POLYETHYL GLY 3350 17 GM/DOSE PO PRN (11:55)
--- NOTE | 2023-06-13 11:55 | P.PN ---
(S) Pt still r (O) vitals reviewed in the EMR General: Alert, Cooperative HEENT: Atraumatic, Normocephalic Neck: Supple Respiratory: Clear to auscultation bilaterally, Normal air movement Cardiovascular: No edema, Regular rate/rhythm Gastrointestinal: Soft and benign, Non-distended, No tenderness Musculoskeletal: No swelling, No tenderness Integumentary: No rashes, No tenderness/swelling Neurological: Normal speech, Normal tone, Normal affect Conclusions/Impression: A/P) 1. Stage I LEE ANN on underlying CKD IV in the setting of complicated UTI, possible mild pre-renal component with concurrent mod dose strength ARB use although no significant downward trend seen in Cr level(s) with initial volume administration raising the possibility of some intrinsic injury although automated UA did not mention any granular casts. Renal function remains plateaued. K at ULN, cont to hold ARB, will d/c maintenance IVF. 2. Complicated UTI, Klebsiella bacteriuria on admission, likely primarily cystitis with no evidence of hydronephrosis on imaging although can not rule out some pyelo with reports of abdominal/back pain. 3. Based on urine culture sensitivities, on fluroquinolone IV Abx, dose renally for reduced CrCl. Switch to PO Abx to complete 7 day course. 4. Chronic hypertensive CKD Hx. Labile HTN with elevated BP noted, cont to hold ARB and diuretics for now, will d/c IVF, did add lower dose CCB. 5. Hx of proteinuria, pt with severe hypoalbuminemia (with some mod protein calorie malnutrition as both total protein and pre-albumin level low) noted on labs, did check spot urine study which does show nephrotic range proteinuria with > 3.5 g/day. Will need to repeat as an OP (preferably with 24h urine study but will wait until LEE ANN/infection/illness resolved). 6. Microcytic anemia, severe, indexes did suggest iron deficiency and iron studies confirmed. Since pt is on anti platelet therapy, recommend checking FOBT. Agree with blood transfusion, assess response, pt reports possible EGD plan after colonoscopy. Tawanda Brooks MD, ARNALDON
--- NOTE | 2023-06-13 11:58 | P.PN ---
(S) Pt still reporting some abdominal cramps, bladder pressure at times, freq urination, reports mild nausea. BP has been elevated. Transfused yesterday (O) vitals reviewed in the EMR General: Alert, Cooperative HEENT: Atraumatic, Normocephalic Neck: Supple Respiratory: Clear to auscultation bilaterally, Normal air movement Cardiovascular: No edema, Regular rate/rhythm Gastrointestinal: Soft and benign, Non-distended, No tenderness Musculoskeletal: No swelling, No tenderness Integumentary: No rashes, No tenderness/swelling Neurological: Normal speech, Normal tone, Normal affect Conclusions/Impression: A/P) 1. Stage I LEE ANN on underlying CKD IV in the setting of complicated UTI, possible mild pre-renal component with concurrent mod dose strength ARB use although no significant downward trend seen in Cr level(s) with initial volume administration raising the possibility of some intrinsic injury although automated UA did not mention any granular casts. Renal function remains plateaued. K elevated this AM. Will dose Lokelma 10 gm PO x 1 for the hyperkalemia, cont to hold ARB. Did d/c maintenance IVF, BP elevated 2. Complicated UTI, Klebsiella bacteriuria on admission, likely primarily cystitis with no evidence of hydronephrosis on imaging although can not rule out some pyelo with reports of abdominal/back pain. Will check PVR as pt reporting some urinary hesitancy 3. Based on urine culture sensitivities, on fluroquinolone IV Abx, dose renally for reduced CrCl. Switch to PO Abx to complete 7 day course. 4. Chronic hypertensive CKD Hx. Labile HTN with elevated BP noted, cont to hold ARB, did d/c IVF, did add lower dose CCB. Will restart low dose Lasix 5. Hx of proteinuria, pt with severe hypoalbuminemia (with some mod protein calorie malnutrition as both total protein and pre-albumin level low) noted on labs, did check spot urine study which does show nephrotic range proteinuria with > 3.5 g/day. Will need to repeat as an OP (preferably with 24h urine study but will wait until LEE ANN/infection/illness resolved). 6. Microcytic anemia, severe, indexes did suggest iron deficiency and iron studies confirmed. Agree with blood transfusion, appropriate response, pt reports possible EGD plan after colonoscopy. Will order IV iron doses while here and can dose BRIDGETT as OP once iron replete if Hb remains < 7 Tawanda Brooks MD, FASN
[2023-06-13] MEDS: FUROSEMIDE 20 MG TABLET PO SCH (13:05)
[2023-06-13] MEDS: SOD FERRIC GLUC COMPLX/SUCROSE 125 MG in NA CHLORIDE 0.9% 100 ML IV SCH (15:24)
[2023-06-13] MEDS ORDERED: ACETAMINOPHEN 500 MG TAB PO PRN (17:11)
[2023-06-13] MEDS: ENOXAPARIN 30 MG/0.3 ML SQ SCH (17:15)
[2023-06-13 22:19] VITALS: O2SAT 95
[2023-06-14] MEDS: HYDRALAZINE HCL 20 MG/ML VIAL IV PRN (00:21)
[2023-06-14 03:46] LABS: Magnesium 1.8 mg/dL (1.6-2.4); Potassium 4.6 mEq/L (3.5-5.1)
[2023-06-14] MEDS: LEVOTHYROXINE SOD 0.075 MG TAB PO SCH (05:49)
[2023-06-14] MEDS ORDERED: MAGNESIUM SULFATE 1 gm IVPB 1 GM/100 ML BAG IV ONE (06:00)
[2023-06-14] MEDS: INSULIN -REGULAR HUMAN 50 UNIT/0.5 ML ML SQ SCH ×3 (07:30→17:34)
[2023-06-14] MEDS: FUROSEMIDE 20 MG TABLET PO SCH (08:31)
[2023-06-14] MEDS: ISOSORBIDE MONO SR 60 MG TAB PO SCH (08:31)
[2023-06-14] MEDS: CLOPIDOGREL 75 MG TABLET PO SCH (08:31)
[2023-06-14] MEDS: SOD FERRIC GLUC COMPLX/SUCROSE 125 MG in NA CHLORIDE 0.9% 100 ML IV SCH (08:31)
[2023-06-14] MEDS: MEMANTINE HCL 10 MG TABLET PO SCH (08:31)
[2023-06-14] MEDS: AMIODARONE HCL 200 MG TAB PO SCH (08:31)
[2023-06-14] MEDS: ASPIRIN EC 81 MG TAB PO SCH (08:31)
[2023-06-14] MEDS: VITAMIN D 1000 UNIT TAB PO SCH (08:31)
--- NOTE | 2023-06-14 08:31 | P.PN ---
Subjective Date of Service: 06/14/23 Primary Care Provider: Gareth Chief Complaint: UTI, nausea and vomitting Subjective: No new changes Review of Systems 10-point ROS is otherwise unremarkable Physical Examination - Vital Signs Temperature: 97.8 F Blood Pressure: 145/66 Pulse: 70 Respirations: 18 Pulse Ox (%): 92 - Physical Exam General: Alert, In no apparent distress HEENT: Atraumatic, PERRLA, EOMI Neck: Supple, JVD not distended Respiratory: Clear to auscultation bilaterally, Normal air movement Cardiovascular: Regular rate/rhythm, Normal S1 S2 Gastrointestinal: Normal bowel sounds, No tenderness Musculoskeletal: No tenderness Integumentary: No rashes Neurological: Normal speech, Normal tone, Normal affect Lymphatics: No axilla or inguinal lymphadenopathy Assessment And Plan - Current Problems (Diagnosis) (1) Atrial fibrillation Onset Date: 11/15/15 Current Visit: No Status: Chronic Plan: currently bradycardic. will hold any beta blockers, 7.30 bradycardia is improving. Will hold the metoprolol and restart the amiodarone. Will need to stop if she has repeated bradycardia. Will order telemetry on the patient . Qualifiers: Atrial fibrillation type: paroxysmal Qualified Code(s): I48.0 - Paroxysmal atrial fibrillation (2) UTI (urinary tract infection) Current Visit: Yes Status: Acute Plan: will start the patient on ceftriaxone, fluids and zofran for nausea. 7.31 Klebsiella in the urine. Will switch from ceftriaxone to levofloxacin Qualifiers: Urinary tract infection type: acute cystitis Hematuria presence: without hematuria Qualified Code(s): N30.00 - Acute cystitis without hematuria (3) Acute on chronic renal failure Current Visit: Yes Status: Acute Plan: will gently hydrate the patient and follow the creatine. She sees, Dr. Rodriguez as an outpatient. If she does not turn around in 24 hours we can consult him. As stated above her baseline creatine is approx 1.[address] Brooks 8.2 Patient is not moving much. Will need to control her blood sugars and bp better. Increased the isosorbide and insulin Qualifiers: Acute renal failure type: unspecified Chronic kidney disease stage: stage 4 (severe) Qualified Code(s): N17.9 - Acute kidney failure, unspecified; N18.4 - Chronic kidney disease, stage 4 (severe) (4) DM2 (diabetes mellitus, type 2) Current Visit: No Status: Chronic Plan: will start her on a low dose sliding scale. Will need to check her regular insulin. Hold for today as she is not eating. Will keep her on the hypoglycemic protochol in case she has a low blood sugar. Qualifiers: Diabetes mellitus terminal carman insulin use: with terminal carman use Diabetes mellitus complication detail: with chronic kidney disease Chronic kidney disease stage: stage 4 (severe) (5) Anemia Current Visit: No Status: Acute Plan: Had a unit transfused today. She had an outpatient colonoscopy a week or 2 ago. Which was negative. Have spoken to Dr. Freeman. The patient may be having anemia due to CKD. Will discuss with Dr. Brooks regarding epo Qualifiers: Anemia type: iron deficiency Iron deficiency anemia type: unspecified iron deficiency Qualified Code(s): D50.9 - Iron deficiency anemia, unspecified Discharge Plan: Home Plan to discharge in: 48 Hours - Code Status/Comfort Care Code Status Assessed: No Physician Review: Patient Assessed, Agree with Above Assessment and Plan Critical Care: No Time Spent Managing PTS Care (In Minutes): 20
[2023-06-14] MEDS: FLUTICASONE IH SCH (08:32)
[2023-06-14] MEDS: SALMETEROL IH SCH (08:32)
[2023-06-14] MEDS ORDERED: INSULIN GLARGINE 100 UNIT/ML SQ SCH (09:00)
[2023-06-14] MEDS ORDERED: AMLODIPINE 5 MG TAB PO SCH (09:00)
--- NOTE | 2023-06-14 11:52 | P.PN ---
(S) Pt still with some constipation and abd cramps but feels better overall, BP still labile but better this AM (O) vitals reviewed in the EMR General: Alert, Cooperative HEENT: Atraumatic, Normocephalic Neck: Supple Respiratory: Clear to auscultation bilaterally, Normal air movement Cardiovascular: No edema, Regular rate/rhythm Gastrointestinal: Soft and benign, Non-distended, No tenderness Musculoskeletal: No swelling, No tenderness Integumentary: No rashes, No tenderness/swelling Neurological: Normal speech, Normal tone, Normal affect Conclusions/Impression: A/P) 1. Stage I LEE ANN on underlying CKD IV in the setting of complicated UTI, possible mild pre-renal component with concurrent mod dose strength ARB use although no significant downward trend seen in Cr level(s) with initial volume administration raising the possibility of some intrinsic injury although automated UA did not mention any granular casts. Renal function remains plateaued. K level better s/p Lokelma, cont to hold ARB. Did d/c maintenance IVF earlier in the week, BP elevated at times 2. Complicated UTI, Klebsiella bacteriuria on admission, likely primarily cystitis with no evidence of hydronephrosis on imaging although can not rule out some pyelo with reports of abdominal/back pain. 3. Based on urine culture sensitivities, on fluroquinolone IV Abx, dose renally for reduced CrCl. Switch to PO Abx to complete 7 day course. 4. Chronic hypertensive CKD Hx. Labile HTN with elevated BP noted, cont to hold ARB, did d/c IVF, did add lower dose CCB, will titrate to 2.5 mg BID Did restart low dose Lasix 5. Hx of proteinuria, pt with severe hypoalbuminemia (with some mod protein calorie malnutrition as both total protein and pre-albumin level low) noted on labs, did check spot urine study which does show nephrotic range proteinuria with > 3.5 g/day. Will need to repeat as an OP (preferably with 24h urine study but will wait until LEE ANN/infection/illness resolved). 6. Microcytic anemia, severe, indexes did suggest iron deficiency and iron studies confirmed. Agree with blood transfusion, appropriate response, pt reports possible EGD plan after colonoscopy. Will order IV iron doses while here and can dose BRIDGETT as OP once iron replete if Hb remains < 7 Tawanda Brooks MD, SULEMAN
[2023-06-14 16:55] VITALS: BP 132/58; TEMP 97.8
[2023-06-14] MEDS: ENOXAPARIN 30 MG/0.3 ML SQ SCH (17:34)
--- NOTE | 2023-06-14 19:45 | P.DS ---
Admission Date: 06/09/23 Discharge Date: 06/14/23 Primary Care Provider: Gareth Disposition: ROUTINE DISCHARGE Discharge Condition: FAIR Reason for Admission: UTI, nausea and vomitting - Problems (1) Atrial fibrillation Onset Date: 11/15/15 Current Visit: No Status: Chronic Qualifiers: Atrial fibrillation type: paroxysmal Qualified Code(s): I48.0 - Paroxysmal atrial fibrillation (2) UTI (urinary tract infection) Current Visit: Yes Status: Acute Qualifiers: Urinary tract infection type: acute cystitis Hematuria presence: without hematuria Qualified Code(s): N30.00 - Acute cystitis without hematuria (3) Acute on chronic renal failure Current Visit: Yes Status: Acute Qualifiers: Acute renal failure type: unspecified Chronic kidney disease stage: stage 4 (severe) Qualified Code(s): N17.9 - Acute kidney failure, unspecified; N18.4 - Chronic kidney disease, stage 4 (severe) (4) DM2 (diabetes mellitus, type 2) Current Visit: No Status: Chronic Qualifiers: Diabetes mellitus correction insulin use: with correction use Diabetes mellitus complication detail: with chronic kidney disease Chronic kidney disease stage: stage 4 (severe) (5) Anemia Current Visit: No Status: Acute Qualifiers: Anemia type: iron deficiency Iron deficiency anemia type: unspecified iron deficiency Qualified Code(s): D50.9 - Iron deficiency anemia, unspecified Brief History of Present Illness: Emani is an office patient of [facility]. she has a history of dementia, dm2, ckd stage 4. Has been vomiting since this morning. The patient came to the ER and was found to have a uti. Her baseline creatine is 1.9. However is 2.98 today. She is awake and responding to questions. The patient still has some nausea. She had no diarrhea, falls, respiratory symptoms. No blood in her vomit. She is otherwise doing well Hospital Course: Patient was admitted for uti. she was started on iv antibiotic. Has recieved 5 days worth. Was kept as her ckd had worsened. The patient was seen by Dr. Brooks. She did not come back to her baseline. Will send her home on amlodipin, lasix and iron tablets(she recieved 1 unit) Most likely due to iron deficiency. She should avoid all acei and Arbs. She can follow up with me and Dr. Aglieco Vital Signs/Physical Exam: Temp Pulse Resp BP Pulse Ox 97.8 F 65 14 132/58 L 94 06/14/23 16:00 06/14/23 16:00 06/14/23 16:00 06/14/23 16:00 06/14/23 16:00 General: Alert, In no apparent distress HEENT: Atraumatic, PERRLA, EOMI Neck: Supple, JVD not distended Respiratory: Clear to auscultation bilaterally, Normal air movement Cardiovascular: Regular rate/rhythm, Normal S1 S2 Gastrointestinal: Normal bowel sounds, No tenderness Musculoskeletal: No tenderness Integumentary: No rashes Neurological: Normal speech, Normal tone, Normal affect Lymphatics: No axilla or inguinal lymphadenopathy Laboratory Data at Discharge: WBC 4.60 thou/uL (4.3-10.9) 06/12/23 06:36 Hgb 8.7 g/dL (12.0-15.0) L D 06/12/23 20:07 Hct 27.6 % (36.0-45.0) L 06/12/23 20:07 Plt Count 178 thou/uL (152-406) 06/12/23 06:36 Sodium 135 mEq/L (136-145) L 06/14/23 02:34 Potassium 4.6 mEq/L (3.5-5.1) 06/14/23 02:34 BUN 43 mg/dL (7-18) H 06/14/23 02:34 Creatinine 2.65 mg/dL (0.55-1.02) H 06/14/23 02:34 Glucose 128 mg/dL (74-106) H 06/14/23 02:34 Phosphorus 4.3 mg/dL (2.5-4.9) 06/12/23 06:36 Magnesium 1.8 mg/dL (1.6-2.4) 06/14/23 02:34 Total Bilirubin 0.2 mg/dL (0.2-1.0) 06/12/23 06:36 AST 12 U/L (15-37) L 06/12/23 06:36 ALT 18 U/L (13-56) 06/12/23 06:36 Alkaline Phosphatase 133 U/L (45-117) H 06/12/23 06:36 Lipase 52 U/L (13-75) 06/09/23 11:25 Home Medications: Aspirin [Aspirin EC 81 MG] 81 mg PO DAILY 12/14/21 Cholecalciferol (Vitamin D3) [Vitamin D 1000 Iu Tab] 1,000 unit PO DAILY 0 12/14/21 Clopidogrel Bisulfate [Plavix] 75 mg PO DAILY 12/14/21 Levothyroxine [Synthroid] 75 mcg PO [id number] 12/14/21 Memantine HCl 5 mg PO DAILY 12/14/21 Metoprolol Tartrate 25 mg PO BID 12/14/21 Montelukast [Singulair] 10 mg PO DAILY 12/14/21 Telmisartan 40 mg PO DAILY 12/14/21 Fluticasone/Salmeterol [Advair Hfa 45-21 Mcg Inhaler] 1 puff IH BID 12/17/21 Albuterol Sulfate [Albuterol Sulfate Hfa] 1 puff IH Q6H PRN 03/28/23 Insulin Degludec [Tresiba Flextouch U-100] 32 unit SQ DAILY 03/28/23 Mecobalamin [B12 Active] 1 tab PO DAILY 03/28/23 Amiodarone HCl [Cordarone*] 200 mg PO BID 30 Days #60 tab 03/29/23 Furosemide [Lasix*] 20 mg PO DAILY 06/10/23 Hydralazine [Apresoline*] 10 mg PO TID PRN 06/10/23 Furosemide [Lasix] 20 mg PO DAILY 90 Days #90 tab 06/14/23 Iron,Carbonyl [Ferretts] 18 mg PO DAILY 90 Days #90 tab.chew 06/14/23 New Medications: Iron,Carbonyl [Ferretts] 18 mg PO DAILY 90 Days #90 tab.chew Furosemide [Lasix] 20 mg PO DAILY 90 Days #90 tab Diet: ADA Activity: Ad nel Followup: Kapil Servin MD [Primary Care Provider] - 1 Week Cristino Rodriguez DO [ACTIVE - CAN ADMIT] - 1 Week Physician Review: Patient Assessed, Agree with Above Assessment and Plan Time spent managing pt's care (in minutes): 45
[2023-06-16] MEDS ORDERED: FERROUS SULFATE 325 MG TAB PO SCH (09:00)
== END 2023-06-14 20:43 | disposition home or self-care (01) | DRG 690 ==
LOC: ER 10:45 → ERHOLD 16:57 → 2ND 17:54
PROVIDERS: ADMIT Internal Medicine; ATTEND Internal Medicine
PROC: 30233N1 Transfusion of Nonautologous Red Blood Cells into Peripheral Vein, Percutaneous Approach (ICD-10-PCS; principal; 2023-06-12)
DX: N30.00 Acute cystitis without hematuria (principal); N18.4 Chronic kidney disease, stage 4 (severe); N17.9 Acute kidney failure, unspecified; E44.0 Moderate protein-calorie malnutrition; I12.9 Hypertensive chronic kidney disease with stage 1 through stage 4 chronic kidney disease, or unspecified chronic kidney disease; E11.22 Type 2 diabetes mellitus with diabetic chronic kidney disease; J44.9 Chronic obstructive pulmonary disease, unspecified; E87.5 Hyperkalemia; I48.0 Paroxysmal atrial fibrillation; D63.1 Anemia in chronic kidney disease; D50.9 Iron deficiency anemia, unspecified; E88.09 Other disorders of plasma-protein metabolism, not elsewhere classified; K59.00 Constipation, unspecified; E03.9 Hypothyroidism, unspecified; F03.90 Unspecified dementia, unspecified severity, without behavioral disturbance, psychotic disturbance, mood disturbance, and anxiety; B96.1 Klebsiella pneumoniae [K. pneumoniae] as the cause of diseases classified elsewhere; Z79.4 Long term (current) use of insulin; Z88.2 Allergy status to sulfonamides; Z95.5 Presence of coronary angioplasty implant and graft; Z79.82 Long term (current) use of aspirin; Z79.02 Long term (current) use of antithrombotics/antiplatelets; Z68.20 Body mass index [BMI] 20.0-20.9, adult; Z90.710 Acquired absence of both cervix and uterus; Z79.890 Hormone replacement therapy; Z79.899 Other long term (current) drug therapy; Z87.891 Personal history of nicotine dependence
CPT/HCPCS: 36415; 36430; 74176; 80048; 80053; 81001; 82306; 82570; 82947; 83036; 83540; 83690; 83735; 84100; 84132; 84134; 84156; 84443; 84466; 85014; 85018; 85025; 85044; 86850; 86900; 86901; 86920; 87077; 87086; 87088; 87186; 93005; 96365; 96375; 97116; 97161; 99285; J0360; J0696; J1650; J1815; J2405; J2550; J2916; J3475; J7030; P9016

== ENCOUNTER 2023-06-25 10:03 | Inpatient (IN) | payer OTHER ==
--- OUTSIDE RECORDS SUMMARY | 2023-06-25 10:11 | XMS REPORT | Continuity of Care Document ---
:1940 Author Organization [facility] t Address [address] [place] [id number] Care Team Providers Name Role Phone Norberto [...] Type Policy Number Effective Date Expiration Date Mike sutton AETNA MEDICARE HMO [id number] 2017 POS PPO 00:00:00 Problems Condition Condition Condition Status Onset Resolution Last Treating Co mments Source Name Details Category Date Date Treatment Clinician Date Hypothyroi Hypothyroi Disease [facility] [...] 00 Center DM II DM II Disease Recur[facility] (diabetes (diabetes nce 3-22 Luke s mellitus, mellitus, 00:00: Medi moriah type II), type II), 00 Cent er controlled controlled TIA TIA Disease Active [facility] (transient (transient 3-06 st ischemic ischemic 00:00: Hospit a attack) attack) 00 l Allergies, Adverse Reactions, Alerts Allergy Allergy Status Severity Reaction(s) Onset Inactive Treating Comm ents Source Name Type Date Date Clinician Sulfa DA Active [facility] (Sulfona 4-12 [place] [facility] 00:00: d Antibiot 00 Medical ics) Center Sulfa DA Active [place] [facility] (Sulfona 4-12 [place] 00:00: d Antibiot 00 Medical ics) [place] Baclofen Propensi Active Hallucinatio Methodi ty to [...] Date Stop Date Quantity Comments Source History SDOH [facility] Alcohol Std Drinks [facility] History SDOH [facility] Alcohol Binge Medical [facility] Gender identity [facility] Sexual [facility] History of Social 2021-01-19 2021-01-[address] function 00:00:00 00:00:00 Hospital Tobacco use and 2021-01-15 2021-01-15 Smokeless [facility] exposure 00:00:00 00:00:00 tobacco non-user Hospital Alcohol intake 2021-01-15 2021-01-15 Lifetime [facility] 00:00:00 00:00:00 non-drinker Hospital (finding) History SDOH 2018-12-24 2018-12-[address] [facility] Alcohol Frequency 00:00:00 00:00:00 Medical Center History of tobacco 1967-11-[address] [facility] use 00:00:00 [facility] Center Sex Assigned At [birth year] [facility] 00:00:00 00:00:00 Hospital Smoking Status Start Date Stop Date Source Never smoked tobacco [facility] Ex-smoker 2018-12-24 00:00:00 2018-12-24 00:00:[address] [facility] Medications Ordered Filled Start Stop Current [...] moriah tablet 32 Center sodium Yes 1{tbl} [id number] Take [address] bicarbonate 3-29 [id number] tablet by [facility] 650 MG 20:24: 3D mouth 3 Medical tablet 32 (three) Center times daily. apixaban 0 Yes 2.5mg Q.5D Take 2.[address] [...] moriah tablet 32 Center sodium Yes 1{tbl} Q.[id number] Take [address] bicarbonate 3-29 [id number] tablet [facility] 650 MG 20:24: 3D mouth 3 Medical tablet 32 (three) Center times daily. ticagrelor 0 Yes 90mg Q.5D Take 1 [facility] ([facility]IL[facility]TA) 3-29 tablet (90 Melissa es 90 mg Tab 00:00: mg total) Med ical tablet 00 by mouth 2 Center (two) times daily. ticagrelor 0 Yes 90mg Q.5D Take 1 [facility] ([facility]) 3-29 tablet (90 Melissa es 90 mg Tab 00:00: mg total) Med ical tablet 00 by mouth 2 Center (two) times daily. insulin 202-0 Yes 2U Q.[id number] Inject 2 Methodi lispro 3-[id number] (HumaLOG 00:00: 3D under the Hosp constantin KwikPen 00 skin 3 l Insulin) (three) 100 unit/mL times a injection day before pen meals. SITagliptin 2021-0 Yes 25mg QD Take 1 Meth julianna (JANUVIA) 3-12 tablet (25 st 25 MG 00:00: mg total) Hospita tablet 00 by mouth l daily. insulin 202-0 Yes 2U Q.[id number] Inject 2 [facility]i lispro 3-[id number] (HumaLOG 00:00: 3D under the Hosp constantin KwikPen 00 skin 3 l Insulin) (three) 100 unit/mL times a injection day before pen meals. SITagliptin 202-0 Yes 25mg QD Take 1 Meth julianna (JANUVIA) 3-12 tablet (25 st 25 MG 00:00: mg total) Hospita tablet 00 by mouth l daily. insulin 202-0 Yes 2U Q.06528701 Inject 2 Methodi lispro 3-[id number] (HumaLOG 00:00: 3D under the Hosp constantin KwikPen 00 skin 3 l Insulin) (three) 100 unit/mL times a injection day before pen meals. SITagliptin 202-0 Yes 25mg QD Take 1 Meth julianna (JANUVIA) 3-12 tablet (25 st 25 MG 00:00: mg total) Hospita tablet 00 by mouth l daily. cephalexin 202-0 Yes 250mg QD Take 250 Me thodi [...] 19:51: mouth Hospita capsule 08 daily. l supervisor intermediates therapy for UTI levothyroxi 2020-0 Yes 88ug QD Take 88 Met hodi ne 3-[address] (SYNTHROID) 19:51: mouth Hospi ta 88 mcg 08 daily. l tablet cephalexin Yes 250mg QD Take 250 Me thodi (KEFLEX) 3-[address] 250 MG 19:51: mouth Hospita capsule 08 daily. 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 l tablet insulin Yes 20U QD Inject 20 Metho [...] Time Performed Performing Clinician Musa de anda [id number] 2021-02-23 00:00:00 LUIS ALFREDO Yuan [facility] Plan of Care Planned Activity Planned Date Details Comments Source Future Scheduled 2023-07-[address] [facility] Test 00:00:00 (Season Ended) [code = Medic al Center INFLUENZA VACCINE (Season Ended)] Future Scheduled 2023-07-13 Influenza Vaccine (#1) [facility] Test 00:00:00 [code = Influenza Medical Ce nter Vaccine (#1)] Future Scheduled 2023-06-14 COVID-19 [facility] 18:55:06 [code = COVID-19 VACCINE (#1)] Future Scheduled 2023-06-14 65+ PNEUMOCOCCAL [facility] Test 18:55:06 VACCINE (1 - PCV) [code = 65+ PNEUMOCOCCAL VACCINE (1 - PCV)] Future Scheduled 2023-06-14 SHINGLES VACCINES (1 [facility] Test 18:55:06 of 2) [code = SHINGLES VACCINES (1 of 2)] Future Scheduled 2023-06-14 INFLUENZA VACCINE [facility] Test 18:55:06 [code = INFLUENZA VACCINE] Future Scheduled 2023-04-26 COVID-19 VACCINE (#1) [facility] Test 18:54:43 [code = COVID-19 VACCINE (#1)] Future Scheduled 2023-04-26 65+ PNEUMOCOCCAL [facility] Hospital Test 18:54:43 VACCINE (1 - PCV) [code = 65+ PNEUMOCOCCAL VACCINE (1 - PCV)] Future Scheduled 2023-04-26 SHINGLES VACCINES (1 Met [facility] Test 18:54:43 of 2) [code = SHINGLES VACCINES (1 of 2)] Future Scheduled 2023-04-26 INFLUENZA VACCINE Method [facility] Hospital Test 18:54:43 [code = INFLUENZA VACCINE] Future Scheduled 2023-03-28 COVID-19 VACCINE (#1) [facility] Test 12:13:27 [code = COVID-19 VACCINE (#1)] Future Scheduled 2023-03-28 65+ PNEUMOCOCCAL [facility] Hospital Test 12:13:27 VACCINE (1 - PCV) [code = 65+ PNEUMOCOCCAL VACCINE (1 - PCV)] Future Scheduled 2023-03-28 SHINGLES VACCINES (1 Met [facility] Test 12:13:27 of 2) [code = [...] 00:00:00 protein (procedure) Medical Center [code = 453885822] Future Scheduled 2022-01-16 Urine screening for [facility] Test 00:00:00 protein (procedure) Medical Center [code = 459962649] Future Scheduled 2021-11-[address] [...] A1c [facility] Test 00:00:00 [facility] Medical Center (procedure) [code = 58073073] Future Scheduled 2021-05-[address] [facility] Test 00:00:00 [facility] Medical Center (procedure) [code = 44831889] Future Scheduled 1989 SHINGLES VACCINES (1 CHI [...] 00:00:00 examination Medical Center (regime/therapy) [code = 554181633] Future Scheduled [address]IC EYE EXAM [facility] Test 00:00:00 [code = DIABETIC EYE Medical Center EXAM] Future Scheduled [address] [facility] Test 00:00:00 examination Medical Center (regime/therapy) [code = 487116489] Future Scheduled 1945 PNEUMOCOCCAL 65+ YRS CHI [...] Test 00:00:00 SCAN] Medical Center Future Scheduled 1940 DXA SCAN [code = DXA [facility] Test 00:00:00 SCAN] Medical Center Encounters Start End Encounter Admission Attending Care Care Encounter Source Date/Time Date/Time Type Type Clinicians Facility Department ID 2021-04-12 In[facility] [id number] [facility] 11:00:00 Luda 17 [facility] 2021-01-31 Inpatient ER AIXA, [facility] Cardiology [id number] SLE 18:45:00 LUDA 2021-04-09 2021-04-09 Outpatient UNDEFINED HCAPM LABO [id number] [facility] 10:39:00 10:39:00 92 [facility] 2021-04-08 2021-04-08 Outpatient BERTIN Rodriguez [facility] LAB[facility] [id number] [facility] 12:08:00 12:08:00 Cristino 76 [facility] 2021-02-23 2021-02-25 Inpatient BERTIN James [facility] INTE.02 [id number] [facility] 13:14:00 14:49:00 Norberto 80 [facility] 2021-01-15 2021-01-20 Inpatient MIAN [facility] [id number] [place] 00:00:00 00:00:00 SAHITYA [address] Results Test Description Test Time Test Comments Results Result Comments Source ANTINUCLEAR ANTIBODIES TITER 2021-04-13 13:12:00 Test Item Value Reference Range Interpretation Comme nts KAMILA SCREEN (test code = Negative See_Comment Neg ative <1:80 Borderline 1:80 ANASCR) Positive >1:80P erformed At: [facility] [address] [address]Tczvo Gama Rothman MD Ph:[phone] [Automated message] The sy stem which generated this result tra nsmitted reference range: (). The reference range was not used to int erpret this result as normal/abnor mal. FAX:[phone] FAX:[phone] RFLX MICR CULT IF [id number] 20:07:00 Test Item Value Reference Range Interpretation [...] code = 0-5 /HPF NONE SEEN SQU) FAX:[phone]:[phone] PROT ELECTROPHORESIS [id number] 20:07:00 Test Item Value Reference Range Interpretation Comments UR TOTAL PROTEIN 261.4 mg/dL Not Estab. Results con firmed (test code = ondilution. PROTEU) UR ALBUMIN % (test 42.0 % See_Comment [Automat ed message] code = ALBEU%) The system ich generated this result transmitted ref erence range: (). The reference range was not used to int erpret this result as normal/abnormal . UR 8.6 % See_Comment [Automated Kognitio] RGJBW-3-[id number] % The syste m which (test code = generated this result A1GU%) transmitted ref erence range: (). The reference range was not used to int erpret this result as normal/abnormal . UR 12.4 % See_Comment [Automated Kognitio] HJBWC-0-JWXNMZSM % The syste m which (test code [...] Observed % Not Observed code = MSPIKE%) FAX:[phone]:[phone] MICROALBUMIN/CREAT [id number] 20:07:00 Test Item Value Reference Range Interpretation [...] increa sed: >300Performed A t: HD [facility] [address] [place], [place] [id number] Gama Rothman MD Ph:[phone] FAX:[phone]:[phone] METABOLIC [id number] 20:07:00 Test Item Value Reference Range Interpretation [...] 20-125 H TOTAL (test code = ALKP) FAX:[phone] FAX:[phone] ELECTROPHORESIS [id number] 20:07:00 Test Item Value Reference Range Interpretation Comments TOTAL PROTEIN 8.0 g/dL 6.0-8.5 (test code = PROTE) ALBUMIN (test 3.2 g/dL 2.9-4.4 code = ALBE) TFKVF-0-CCXKOGS 0.3 g/dL 0.0-0.4 N (test code = A1G) OLEDZ-8-YXUFLZM 1.3 g/dL 0.4-1.0 A N (test code [...] chain quantitation.Pe rformed At: HD [facility] [address] [place], [place] [address]Nvvmn Kyle L MD Ph:[phone] rformed At: DA [facility] [address] [facility] [address] [place], [place] [id number] h CN MD Ph:[phone] [ Automated message] The sy stem which generated this result transmitted ref erence range: (). The reference range was not u sed to interpret this result as normal/abnormal . FAX:[phone] FAX:[phone] 20:07:00 Test Item Value Reference Range Interpretation Comments PHOSPHOROUS (test code = PHOS) 3.9 MG/DL 2.5-4.9 N FAX:[phone] FAX:[phone] [id number] 20:07:00 Test Item Value Reference Range Interpretation Comments URIC ACID (test code = URIC) 9.0 mg/dL 2.6-7.2 H FAX:[phone] FAX:[phone] 20:07:00 Test Item Value Reference Range Interpretation Comments MAGNESIUM (test code = MAG) 1.53 mg/dL 1.80-2.40 L FAX:[phone] FAX:[phone] PRO-BRAIN NATRIURETIC [id number] 20:07:00 Test Item Value Reference Range Interpretation Comments NT PRO-BRAIN NATRIURETIC PEPTI 4512 PG/ML 0-100 H (test code = PROBNP) FAX:[phone] FAX:[phone] A,G [id number] 20:07:00 Test Item Value Reference Range Interpretation Comments IMMUNOGLOBULIN G (test 1712 mg/dL 586-1602 A code = IGG) IMMUNOGLOBULIN M (test 52 mg/dL 26-217 Perfo rmed At: HD code = IGM) [facility] [address] [id number] Gama Rothman MD Ph:[phone] IMMUNOGLOBULIN A (test 663 mg/dL 64-422 A code = IGA) FAX:[phone] FAX:[phone] D 11-[id number] 20:07:00 Test Item Value Reference Range Interpretation Comments VITAMIN D 25-HYDROXY (test code = 17.4 ng/mL 30-100 L VITD25) FAX:[phone] FAX:[phone] RFLX MICR CULT IF [id number] 11:08:00 Test Item Value Reference Range Interpretation [...] code = 0-5 /HPF NONE SEEN SQU) FAX:[phone]:[phone] PROT ELECTROPHORESIS [id number] 11:08:00 Test Item Value Reference Range Interpretation Comments UR TOTAL PROTEIN (test code = PROTEU) UR ALBUMIN % (test code = ALBEU%) UR DECBA-1-PNKNVKED % (test code = A1GU%) UR IODXV-2-TBTERLLI % (test code = A2GU%) UR BETA GLOBULIN % (test code = BGU%) UR GAMMA GLOBULIN % (test code = GGU%) M SPIKE % (test code = MSPIKE%) FAX:[phone]:[phone] MICROALBUMIN/CREAT [id number] 11:08:00 Test Item Value Reference Range Interpretation [...] increa sed: >300Performed A t: HD [facility] [address] [place], [place] [address]Axgav Gama Rothman MD Ph:[phone] FAX:[phone]:[phone] METABOLIC [id number] 10:08:00 Test Item Value Reference Range Interpretation [...] 20-125 H TOTAL (test code = ALKP) FAX:[phone] FAX:[phone] ELECTROPHORESIS [id number] 10:08:00 Test Item Value Reference Range Interpretation Comments TOTAL PROTEIN (test code = PROTE) ALBUMIN (test code = ALBE) MUAXS-6-BTMMNFVJ (test code = A1G) JHALJ-8-BUHKRLCN (test code = A2G) BETA GLOBULIN (test code = BG) GAMMA GLOBULIN (test code = GG) M-SPIKE,SERUM (test code = MSPIKES) GLOBULIN ELECT (test code = GLOBE) ALBUMIN/GLOBULIN RATIO (test code = AGE) PROT.ELECTROPH.INTERPRETATION (test code = ELEINT) FAX:[phone] FAX:[phone] 10:08:00 Test Item Value Reference Range Interpretation Comments PHOSPHOROUS (test code = PHOS) 3.9 MG/DL 2.5-4.9 N FAX:[phone] FAX:[phone] [id number] 10:08:00 Test Item Value Reference Range Interpretation Comments URIC ACID (test code = URIC) 9.0 mg/dL 2.6-7.2 H FAX:[phone] FAX:[phone] 10:08:00 Test Item Value Reference Range Interpretation Comments MAGNESIUM (test code = MAG) 1.53 mg/dL 1.80-2.40 L FAX:[phone] FAX:[phone] PRO-BRAIN NATRIURETIC [id number] 10:08:00 Test Item Value Reference Range Interpretation Comments NT PRO-BRAIN NATRIURETIC PEPTI 4512 PG/ML 0-100 H (test code = PROBNP) FAX:[phone] FAX:[phone] A,G [id number] 10:08:00 Test Item Value Reference Range Interpretation Comments IMMUNOGLOBULIN G (test 1712 mg/dL 586-1602 A code = IGG) IMMUNOGLOBULIN M (test 52 mg/dL 26-217 Perfo rmed At: HD code = IGM) [facility] [id number] Gama Rothman MD Ph:[phone] IMMUNOGLOBULIN A (test 663 mg/dL 64-422 A code = IGA) FAX:[phone] FAX:[phone] D [id number] 10:08:00 Test Item Value Reference Range Interpretation Comments VITAMIN D 25-HYDROXY (test code = 17.4 ng/mL 30-100 L VITD25) FAX:[phone] FAX:[phone] PRO-BRAIN NATRIURETIC [id number] 13:38:00 Test Item Value Reference Range Interpretation Comments NT PRO-BRAIN NATRIURETIC PEPTI 4512 PG/ML 0-100 H (test code = PROBNP) FAX:[phone] FAX:[phone] METABOLIC [id number] 13:38:00 Test Item Value Reference Range Interpretation [...] 20-125 H TOTAL (test code = ALKP) FAX:[phone] FAX:[phone] ELECTROPHORESIS [id number] 13:38:00 Test Item Value Reference Range Interpretation Comments TOTAL PROTEIN (test code = PROTE) ALBUMIN (test code = ALBE) DCINN-6-CTTHRXBL (test code = A1G) TXVXR-9-CNSTQLVV (test code = A2G) BETA GLOBULIN (test code = BG) GAMMA GLOBULIN (test code = GG) M-SPIKE,SERUM (test code = MSPIKES) GLOBULIN ELECT (test code = GLOBE) ALBUMIN/GLOBULIN RATIO (test code = AGE) PROT.ELECTROPH.INTERPRETATION (test code = ELEINT) FAX:[phone] FAX:[phone] 13:38:00 Test Item Value Reference Range Interpretation Comments PHOSPHOROUS (test code = PHOS) 3.9 MG/DL 2.5-4.9 N FAX:[phone] FAX:[phone] [id number] 13:38:00 Test Item Value Reference Range Interpretation Comments URIC ACID (test code = URIC) 9.0 mg/dL 2.6-7.2 H FAX:[phone] FAX:[phone] 13:38:00 Test Item Value Reference Range Interpretation Comments MAGNESIUM (test code = MAG) 1.53 mg/dL 1.80-2.40 L FAX:[phone] FAX:[phone] PRO-BRAIN NATRIURETIC [id number] 13:38:00 Test Item Value Reference Range Interpretation Comments NT PRO-BRAIN NATRIURETIC PEPTI 4512 PG/ML 0-100 H (test code = PROBNP) FAX:[phone] FAX:[phone] A,G [id number] 13:38:00 Test Item Value Reference Range Interpretation Comments IMMUNOGLOBULIN G (test code = IGG) IMMUNOGLOBULIN M (test code = IGM) IMMUNOGLOBULIN A (test code = IGA) FAX:[phone] FAX:[phone] D [id number] 13:38:00 Test Item Value Reference Range Interpretation Comments VITAMIN D 25-HYDROXY (test code = 17.4 ng/mL 30-100 L VITD25) FAX:[phone] FAX:[phone] Coronavirus 2019 [id number] 06:58:00 Test Item Value Reference Range Interpretation [...] code = HGBA1C%) 7.8 %A1C 4.8-6.0 H FAX:[phone] METABOLIC [id number] 13:51:00 Test Item Value Reference Range Interpretation [...] 20-125 H TOTAL (test code = ALKP) FAX:[phone] ELECTROPHORESIS [id number] 13:51:00 Test Item Value Reference Range Interpretation Comments TOTAL PROTEIN (test code = PROTE) ALBUMIN (test code = ALBE) SNFMH-9-TXQMYVDY (test code = A1G) KFIBR-9-QLGKCJJS (test code = A2G) BETA GLOBULIN (test code = BG) GAMMA GLOBULIN (test code = GG) M-SPIKE,SERUM (test code = MSPIKES) GLOBULIN ELECT (test code = GLOBE) ALBUMIN/GLOBULIN RATIO (test code = AGE) PROT.ELECTROPH.INTERPRETATION (test code = ELEINT) FAX:[phone] 13:51:00 Test Item Value Reference Range Interpretation Comments PHOSPHOROUS (test code = PHOS) 3.9 MG/DL 2.5-4.9 N FAX:[phone] [id number] 13:51:00 Test Item Value Reference Range Interpretation Comments URIC ACID (test code = URIC) 9.0 mg/dL 2.6-7.2 H FAX:[phone] 13:51:00 Test Item Value Reference Range Interpretation Comments MAGNESIUM (test code = MAG) 1.53 mg/dL 1.80-2.40 L FAX:[phone] PRO-BRAIN NATRIURETIC [id number] 13:51:00 Test Item Value Reference Range Interpretation Comments NT PRO-BRAIN NATRIURETIC PEPTI (test code = PROBNP) FAX:[phone] [id number] 13:51:00 Test Item Value Reference Range Interpretation Comments IMMUNOGLOBULIN G (test code = IGG) FAX:[phone] [id number] 13:51:00 Test Item Value Reference Range Interpretation Comments IMMUNOGLOBULIN M (test code = IGM) FAX:[phone] [id number] 13:51:00 Test Item Value Reference Range Interpretation Comments IMMUNOGLOBULIN A (test code = IGA) FAX:[phone] D [id number] 13:51:00 Test Item Value Reference Range Interpretation Comments VITAMIN D 25-HYDROXY (test code = 17.4 ng/mL 30-100 L VITD25) FAX:[phone] RFLX MICR CULT IF [id number] 13:41:00 Test Item Value Reference Range Interpretation [...] code = 0-5 /HPF NONE SEEN SQU) FAX:[phone] PROT ELECTROPHORESIS [id number] 13:41:00 Test Item Value Reference Range Interpretation Comments UR TOTAL PROTEIN (test code = PROTEU) UR ALBUMIN % (test code = ALBEU%) UR AMXTY-8-JFJTIWOU % (test code = A1GU%) UR TQIWT-8-INPKQZDN % (test code = A2GU%) UR BETA GLOBULIN % (test code = BGU%) UR GAMMA GLOBULIN % (test code = GGU%) M SPIKE % (test code = MSPIKE%) FAX:[phone] MICROALBUMIN/CREAT [id number] 13:41:00 Test Item Value Reference Range Interpretation Comments UR CREATININE (test code = CREATE) UR MICROALBUMIN QUAL (test code = MICALBQL) UR MICROALB/CREAT RATIO (test code mcg/mgCr = MICALB:CRE) FAX:[phone] METABOLIC [id number] 13:39:00 Test Item Value Reference Range Interpretation [...] 9.5 mg/dL 8.0-10.5 N CA) PTH INTACT [id number] 13:24:00 Test Item Value Reference Range Interpretation Comments PARATHYROID HORMONE INTACT (test 162.2 pg/mL 14.0-72.0 H code = PARAI) FAX:[phone] [id number] 13:12:00 Test Item Value Reference Range Interpretation [...] (to prevent recurrent infar ct). CBC W/AUTO [id number] 13:06:00 Test Item Value Reference Range Interpretation [...] (test code NO = MDIFF) PROTEIN ELECTROPHORESIS [id number] 13:09:00 Test Item Value Reference Range Interpretation Comments TOTAL PROTEIN 7.0 g/dL 6.0-8.5 (test code = PROTE) ALBUMIN (test 2.9 g/dL 2.9-4.4 code = ALBE) UTWUE-9-XMWSTGBX 0.4 g/dL 0.0-0.4 (test code = A1G) LFGJH-9-JFNOKTAC 1.1 g/dL 0.4-1.0 A (test code = [...] is not apparent.Perfor med At: HD [facility] [address] [place], [place] [address]Rmklj Gama Rothman MD Ph:[phone] rform ed At: DA [facility] [address] [place] [id number] h CN MD Ph:[phone] [Automated mess age] The system [employer] generated this result transmit rosalia reference range : (). The reference r neyda was not used to interpret this result as normal/abnormal . IMMUNOELECTROPHORESIS [id number] 13:09:00 Test Item Value Reference Range Interpretation Comments IMMUNOGLOBULIN A (test 536 mg/dL 64-422 A code = AIDEN) IMMUNOGLOBULIN G (test 1323 mg/dL 586-1602 code = IMMG) IMMUNOGLOBULIN M (test 33 mg/dL 26-217 Perfo rmed At: DA code = IMMM) [facility] [place] [address] [facility] [address] [place], [place] [address]Tzersl h CN MD Ph:[phone] rform ed At: HD [facility], [place] [address]Umvfb Gama Rothman MD Ph:[phone] IMMUNOFIXATION SERUM See_Comment A Polyclo nal increase (test code = IMMFIXS) detect ed in one or moreimmunoglobu penny. [Automated mess age] The system [employer] generated this result transmit rosalia reference range : (). The reference r neyda was not used to interpret this result as normal/abnormal . FREE KAPPA + LAMBDA LT [id number] 13:09:00 Test Item Value Reference Range Interpretation Comments FREE KAPPA LT CHAINS 127.9 mg/L 3.3-19.4 A (test code = KAPPAFR) FREE LAMBDA LT 90.1 mg/L 5.7-26.3 A CHAINS (test code = LAMBDAFR) FREE KAPPA/LAMBDA 1.42 0.26-1.65 Performed At: DA RATIO (test code = [facility] D [id number]) [facility] [address] [place], [place] [id number] h CN MD Ph:[phone] PROTEIN ELECTROPHORESIS [id number] 12:09:00 Test Item Value Reference Range Interpretation Comments TOTAL PROTEIN (test code = PROTE) ALBUMIN (test code = ALBE) [id number] (test code = A1G) [id number] (test code = A2G) BETA GLOBULIN (test code = BG) GAMMA GLOBULIN (test code = GG) M-SPIKE,SERUM (test code = MSPIKES) GLOBULIN ELECT (test code = GLOBE) ALBUMIN/GLOBULIN RATIO (test code = AGE) PROT.ELECTROPH.INTERPRETATION (test code = ELEINT) IMMUNOELECTROPHORESIS [id number] 12:09:00 Test Item Value Reference Range Interpretation Comments IMMUNOGLOBULIN A (test 536 mg/dL 64-422 A code = AIDEN) IMMUNOGLOBULIN G (test 1323 mg/dL 586-1602 code = IMMG) IMMUNOGLOBULIN M (test 33 mg/dL 26-217 Perfo rmed At: DA code = IMMM) [facility] [id number] [facility] [address] [place], [place] [id number] h CN MD Ph:[phone] rform ed At: [facility] rp [id number] [facility]als[facility], [place] [address]Tsifu Gama Rothman MD Ph:[phone] IMMUNOFIXATION SERUM See_Comment A Polyclo nal increase (test code = IMMFIXS) detect ed in one or moreimmunoglobu penny. [Automated mess age] The system PSG [employer] generated this result transmit rosalia reference range : (). The reference r neyda was not used to interpret this result as normal/abnormal . FREE KAPPA + LAMBDA LT [id number] 12:09:00 Test Item Value Reference Range Interpretation Comments FREE KAPPA LT CHAINS 127.9 mg/L 3.3-19.4 A (test code = KAPPAFR) FREE LAMBDA LT 90.1 mg/L 5.7-26.3 A CHAINS (test code = LAMBDAFR) FREE KAPPA/LAMBDA 1.42 0.26-1.65 Performed At: DA RATIO (test code = [facility] D [id number] KAPFRLAMFR) [facility] [address] [place], [place] [id number] h CN MD Ph:[phone] PROTEIN ELECTROPHORESIS [id number] 17:08:00 Test Item Value Reference Range Interpretation Comments TOTAL PROTEIN (test code = PROTE) ALBUMIN (test code = ALBE) YTOJS-5-[id number] (test code = A1G) GSIPM-4-SXMCMORE (test code = A2G) BETA GLOBULIN (test code = BG) GAMMA GLOBULIN (test code = GG) M-SPIKE,SERUM (test code = MSPIKES) GLOBULIN ELECT (test code = GLOBE) ALBUMIN/GLOBULIN RATIO (test code = AGE) PROT.ELECTROPH.INTERPRETATION (test code = ELEINT) IMMUNOELECTROPHORESIS [id number] 17:08:00 Test Item Value Reference Range Interpretation Comments IMMUNOGLOBULIN A (test code = AIDEN) IMMUNOGLOBULIN G (test code = IMMG) IMMUNOGLOBULIN M (test code = IMMM) IMMUNOFIXATION SERUM (test code = IMMFIXS) FREE KAPPA + LAMBDA LT [id number] 17:08:00 Test Item Value Reference Range Interpretation Comments FREE KAPPA LT CHAINS 127.9 mg/L 3.3-19.4 A (test code = KAPPAFR) FREE LAMBDA LT 90.1 mg/L 5.7-26.3 A CHAINS (test code = LAMBDAFR) FREE KAPPA/LAMBDA 1.42 0.26-1.65 Performed At: DA RATIO (test code = [facility] D [id number] KAPFRLAMFR) [address] [place], [place] [id number] h FINN BRITT Ph:[phone] [id number] 13:19:00 Test Item Value Reference Range Interpretation Comments GLUBED (test code = 136 MG/DL 70-110 H Performe d by certified GLUBED) enhanced environmental operator at [facility] [id number] 11:13:00 Test Item Value Reference Range Interpretation Comments GLUBED (test code = 64 MG/DL 70-110 L Performe d by certified GLUBED) enhanced environmental operator at [facility] [id number] 08:45:00 Test Item Value Reference Range Interpretation Comments GLUBED (test code = 163 MG/DL 70-110 H Performe d by certified GLUBED) enhanced environmental operator at [facility] CBC W/AUTO [id number] 04:56:00 Test Item Value Reference Range Interpretation [...] code NO = MDIFF) POC ARTERIAL BLOOD [id number] 02:47:00 Test Item Value Reference Range Interpretation Comments POC ARTERIAL BLOOD GAS PH (test 7.436 7.35-7.45 N code = POCPHA) POC ARTERIAL BLOOD GAS PCO2 (test 36.8 mmHg 35.0-45 N code = RFIKYX9U) POC TCO2 ARTERIAL (test code = 25.9 POCTCO2) POC ARTERIAL BLOOD GAS PO2 (test 50.8 mmHg 80-100.0 L code = NNWYP1D) POC HCO3 ARTERIAL (test code = 24.8 MMOL/L 22.0-26.0 N [id number]) POC BASE EXCESS (test code = 0.6 MMOL/L -4.0-4.0 N POCBEA) POC O2 SATURATION (test code = 86.9 % 90-100 L POCO2S) ABG DELIVERY (test code = CHRISTINA) Cannula ABG PATIENT RESP RATE (test code 20 /MIN = RRPATA) ABG SITE (test code = SITEA) R Brach JENNIFER'S TEST (test code = ALLENS) Positive BASIC METABOLIC [id number] 02:47:00 Test Item Value Reference Range Interpretation Comments SODIUM (test code = NA/ABG) MEQ/L 134-147 POTASSIUM (test code = K/ABG) MEQ/L 3.4-5.0 CHLORIDE (test code = CL/ABG) MEQ/L 100-108 CREATININE ABG (test code = CREAABG) mg/dL 0.6-1.0 POC IONIZED CALCIUM (test code = MMOL/L 1.12-1.32 POCCA) POC GLUCOSE (test code = POCGLU) MG/DL 70-110 [id number] 02:47:00 Test Item Value Reference Range Interpretation Comments HEMOGLOBIN (test code = HGB/ABG) G/DL 11.0-15.0 [id number] 02:47:00 Test Item Value Reference Range Interpretation Comments HEMATOCRIT (test code = HCT/ABG) % 33.0-45.0 POC LACTIC [id number] 02:47:00 Test Item Value Reference Range Interpretation Comments POC LACTIC ACID (test code = POCLAC) mmol/l 0.9-1.7 POC ARTERIAL BLOOD [id number] 02:47:00 Test Item Value Reference Range Interpretation Comments POC ARTERIAL BLOOD GAS PH (test 7.436 7.35-7.45 N code = POCPHA) POC ARTERIAL BLOOD GAS PCO2 (test 36.8 mmHg 35.0-45 N code = JXKSUB4A) POC TCO2 ARTERIAL (test code = 25.9 POCTCO2) POC ARTERIAL BLOOD GAS PO2 (test 50.8 mmHg 80-100.0 L code = XXHHD7P) POC HCO3 ARTERIAL (test code = 24.8 MMOL/L 22.0-26.0 N UJPHDP4P) POC BASE EXCESS (test code = 0.6 MMOL/L -4.0-4.0 N POCBEA) POC O2 SATURATION (test code = 86.9 % 90-100 L POCO2S) ABG DELIVERY (test code = CHRISTINA) Cannula ABG PATIENT RESP RATE (test code 20 /MIN = RRPATA) ABG SITE (test code = SITEA) R Brach JENNIFER'S TEST (test code = ALLENS) Positive BASIC METABOLIC [id number] 02:47:00 Test Item Value Reference Range Interpretation Comments SODIUM (test code = NA/ABG) MEQ/L 134-147 POTASSIUM (test code = K/ABG) MEQ/L 3.4-5.0 CHLORIDE (test code = CL/ABG) MEQ/L 100-108 CREATININE ABG (test code = CREAABG) mg/dL 0.6-1.0 POC IONIZED CALCIUM (test code = MMOL/L 1.12-1.32 POCCA) POC GLUCOSE (test code = POCGLU) MG/DL 70-110 [id number] 02:47:00 Test Item Value Reference Range Interpretation Comments HEMOGLOBIN (test code = HGB/ABG) G/DL 11.0-15.0 [id number] 02:47:00 Test Item Value Reference Range Interpretation Comments HEMATOCRIT (test code = HCT/ABG) % 33.0-45.0 POC LACTIC [id number] 02:47:00 Test Item Value Reference Range Interpretation Comments POC LACTIC ACID (test code = 0.5 mmol/l 0.9-1.7 L POCLAC) POC ARTERIAL BLOOD [id number] 02:47:00 Test Item Value Reference Range Interpretation Comments POC ARTERIAL BLOOD GAS PH (test 7.436 7.35-7.45 N code = POCPHA) POC ARTERIAL BLOOD GAS PCO2 (test 36.8 mmHg 35.0-45 N code = EJCGKS2H) POC TCO2 ARTERIAL (test code = 25.9 POCTCO2) POC ARTERIAL BLOOD GAS PO2 (test 50.8 mmHg 80-100.0 L code = PTAUR6N) POC HCO3 ARTERIAL (test code = 24.8 MMOL/L 22.0-26.0 N CFQGTZ3G) POC BASE EXCESS (test code = 0.6 MMOL/L -4.0-4.0 N POCBEA) POC O2 SATURATION (test code = 86.9 % 90-100 L POCO2S) ABG DELIVERY (test code = CHRISTINA) Cannula ABG PATIENT RESP RATE (test code 20 /MIN = RRPATA) ABG SITE (test code = SITEA) R Brach JENNIFER'S TEST (test code = ALLENS) Positive BASIC METABOLIC [id number] 02:47:00 Test Item Value Reference Range Interpretation [...] code = POCGLU) 168 MG/DL 70-110 H [id number] 02:47:00 Test Item Value Reference Range Interpretation Comments HEMOGLOBIN (test code = HGB/ABG) G/DL 11.0-15.0 [id number] 02:47:00 Test Item Value Reference Range Interpretation Comments HEMATOCRIT (test code = HCT/ABG) % 33.0-45.0 POC LACTIC [id number] 02:47:00 Test Item Value Reference Range Interpretation Comments POC LACTIC ACID (test code = 0.5 mmol/l 0.9-1.7 L POCLAC) POC ARTERIAL BLOOD [id number] 02:47:00 Test Item Value Reference Range Interpretation Comments POC ARTERIAL BLOOD GAS PH (test 7.436 7.35-7.45 N code = POCPHA) POC ARTERIAL BLOOD GAS PCO2 (test 36.8 mmHg 35.0-45 N code = QMEBFF0F) POC TCO2 ARTERIAL (test code = 25.9 POCTCO2) POC ARTERIAL BLOOD GAS PO2 (test 50.8 mmHg 80-100.0 L code = LFJZB0N) POC HCO3 ARTERIAL (test code = 24.8 MMOL/L 22.0-26.0 N MNVGFR0Y) POC BASE EXCESS (test code = 0.6 MMOL/L -4.0-4.0 N POCBEA) POC O2 SATURATION (test code = 86.9 % 90-100 L POCO2S) ABG DELIVERY (test code = CHRISTINA) Cannula ABG PATIENT RESP RATE (test code 20 /MIN = RRPATA) ABG SITE (test code = SITEA) R Brach JENNIFER'S TEST (test code = ALLENS) Positive BASIC METABOLIC [id number] 02:47:00 Test Item Value Reference Range Interpretation [...] code = POCGLU) 168 MG/DL 70-110 H [id number] 02:47:00 Test Item Value Reference Range Interpretation Comments HEMOGLOBIN (test code = HGB/ABG) 10.1 G/DL 11.0-15.0 L [id number] 02:47:00 Test Item Value Reference Range Interpretation Comments HEMATOCRIT (test code = HCT/ABG) % 33.0-45.0 POC LACTIC [id number] 02:47:00 Test Item Value Reference Range Interpretation Comments POC LACTIC ACID (test code = 0.5 mmol/l 0.9-1.7 L POCLAC) POC ARTERIAL BLOOD [id number] 02:47:00 Test Item Value Reference Range Interpretation Comments POC ARTERIAL BLOOD GAS PH (test 7.436 7.35-7.45 N code = POCPHA) POC ARTERIAL BLOOD GAS PCO2 (test 36.8 mmHg 35.0-45 N code = QNEBTJ1S) POC TCO2 ARTERIAL (test code = 25.9 POCTCO2) POC ARTERIAL BLOOD GAS PO2 (test 50.8 mmHg 80-100.0 L code = ANCKN2X) POC HCO3 ARTERIAL (test code = 24.8 MMOL/L 22.0-26.0 N EGBERM2D) POC BASE EXCESS (test code = 0.6 MMOL/L -4.0-4.0 N POCBEA) POC O2 SATURATION (test code = 86.9 % 90-100 L POCO2S) ABG DELIVERY (test code = CHRISTINA) Cannula ABG PATIENT RESP RATE (test code 20 /MIN = RRPATA) ABG SITE (test code = SITEA) R Bola JENNIFER'S TEST (test code = ALLENS) Positive BASIC METABOLIC [id number] 02:47:00 Test Item Value Reference Range Interpretation [...] code = POCGLU) 168 MG/DL 70-110 H [id number] 02:47:00 Test Item Value Reference Range Interpretation Comments HEMOGLOBIN (test code = HGB/ABG) 10.1 G/DL 11.0-15.0 L [id number] 02:47:00 Test Item Value Reference Range Interpretation Comments HEMATOCRIT (test code = HCT/ABG) 30 % 33.0-45.0 L POC LACTIC [id number] 02:47:00 Test Item Value Reference Range Interpretation Comments POC LACTIC ACID (test code = 0.5 mmol/l 0.9-1.7 L POCLAC) [id number] 00:37:00 Test Item Value Reference Range Interpretation Comments GLUBED (test code = 203 MG/DL 70-110 H Performe d by certified GLUBED) enhanced environmental operator at [facility] [id number] 17:37:00 Test Item Value Reference Range Interpretation Comments GLUBED (test code = 148 MG/DL 70-110 H Performe d by certified GLUBED) enhanced environmental operator at [facility] - XR CHEST 2 [id number] 14:27:00 [facility] 1940 Sex: F FAX: Norberto Schmidt [phone] Early Branch: St: ADM FAX: Bijal Nguyễn MD [phone] FAX: Luda Fenton MD [phone] Name: CARLITA HERNANDEZ [facility] [place] : 1940 Age/S: 80/F [address] [place] [address] Unit #: [id number] Loc: G.33[address] [place] [address] Phys: Bijal Nguyễn MD Acct: [id number] Dis Date: Status: ADM IN PHONE #: [phone] Exam Date: 02/24/2021 1414 FAX #: [phone] Reason: hypoxia EXAMS: CPT CODE: [id number] XR CHEST 2 V 24498 Clinical Indication: Hypoxia. Comparison: 02/23/2021. Impression: Chest, single view. 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 Persistent, though improved bilateral coarse pulmonary opacities. No new pleural effusion or pneumothorax. Cardiac silhouette is of normal size. No acute osseous abnormality. SL: [id number] at 1427 Reported and signed by: Kayla Leal M.D. CC: Norberto James MD; Bijal Nguyễn MD; Luda Kruse MD Technologist: Shaina Clement RT(R) Trnscrd Date/Time/By: 02/24/2021 (4102) : By: [email or web address] Orig Print D/T: S: 02/24/2021 (0806)PAGE 1 Signed [id number] 12:00:00 Test Item Value Reference Range Interpretation Comments GLUBED (test code = 191 MG/DL 70-110 H Performe d by certified GLUBED) enhanced environmental operator at [facility] CBC W/AUTO [id number] 10:43:00 Test Item Value Reference Range Interpretation [...] (test code NO = MDIFF) CBC W/AUTO [id number] 10:41:00 Test Item Value Reference Range Interpretation [...] REQUIRED (test code = MDIFF) COMPREHENSIVE METABOLIC [id number] 07:58:00 Test Item Value Reference Range Interpretation [...] 20-125 N TOTAL (test code = ALKP) [id number] 06:32:00 Test Item Value Reference Range Interpretation Comments GLUBED (test code = 193 MG/DL 70-110 H Performe d by certified GLUBED) enhanced environmental operator at [facility] [id number] 05:58:00 Test Item Value Reference Range Interpretation Comments GLUBED (test code = 195 MG/DL 70-110 H Performe d by certified GLUBED) enhanced environmental operator at [facility] [id number] 05:28:00 Test Item Value Reference Range Interpretation Comments GLUBED (test code = 191 MG/DL 70-110 H Performe d by certified GLUBED) enhanced environmental operator at [facility] - XR CHEST 1 [id number] 18:20:00 [facility] : 1940 Sex: F FAX: Bekah Wan [phone] Early Branch: St: ADM FAX: Luda Fenton MD [phone] ----- Name: CARLITA HERNANDEZ [facility] : 1940 Age/S: 80/F [address] [place] [address] Unit #: [id number] Loc: [place] [address] Phys: Bekah Wan [facility] Acct: [id number] Dis Date: Status: ADM IN PHONE #: [phone] Exam Date: 02/23/20211814 FAX #: [phone] Reason: POST WATCHMAN EXAMS: CPT CODE: [id number] XR CHEST 1 V 15364 Portable single view AP chest INDICATION: Post [...] : By: [email or web address] Orig Print D/T: S: 02/23/2021 (1822) PAGE 1 Signed [id number] 14:00:00 Test Item Value Reference Range Interpretation Comments GLUBED (test code = 190 MG/DL 70-110 H Performe d by certified GLUBED) enhanced environmental operator at [facility] [id number] 13:38:00 Test Item Value Reference Range Interpretation Comments ACT-ISTAT (test code 268 SEC 74-137 H Perform ed by certified = ACTI) enhanced environmental operator at [facility] [id number] 13:38:00 Test Item Value Reference Range Interpretation Comments ACT-ISTAT (test code 252 SEC 74-137 H Perform ed by certified = ACTI) enhanced environmental operator at [facility] [id number] 13:38:00 Test Item Value Reference Range Interpretation Comments ACT-ISTAT (test code 235 SEC 74-137 H Perform ed by certified = ACTI) enhanced environmental operator at [facility] [id number] 11:19:00 Test Item Value Reference Range Interpretation Comments GLUBED (test code = 201 MG/DL 70-110 H Performe d by certified GLUBED) enhanced environmental operator at [facility] Novel Coronavirus 2019 [id number] 10:15:00 Test Item Value Reference Range Interpretation [...] for the identification of SARS-CoV-2 RNA usingthe [employer] M2000 Sy stem under the FDA Emergen cy UseAuthorizatio n. The testing is perf ormed by maria fernanda villagomez in the procedures for the [employer] M2000 molecular diagnostic SARS-CoV-2 assa y in vitro. - XR CHEST 2 [id number] 15:44:00 [facility] 1940 Sex: F FAX: Luda Fenton MD [phone] Early Branch: [facility] St: PRE Name: CARLITA CABA [facility] : 1940 Age/S: 80/F [address] [place] [address] Unit #: [id number] Loc: [place] [address] Phys: Yue Kruse Acct: [id number] Dis Date: Status: PRE SDC PHONE #: [phone] Exam Date: 02/21/2021 1524 FAX #: [phone] Reason: PRE-OP WATCHMAN EXAMS: CPT CODE: [id number] XR CHEST 2 V 58882 Clinical Indication: Atrial fibrillation. Preoperative chest radiograph. Comparison: None available. Impression: Chest, 2 views. Lungs are hyperexpanded with flattening of the diaphragm. Blunting of the costophrenic angles may represent scarring or small volume pleural fluid. No pneumothorax. Cardiac silhouette isof normal size. No acute osseous abnormality. SL: [id number] at 1544 Reported and signed by: Kayla Leal M.D. CC: Luda Kruse MD Technologist: RT Jagjit(R) Trnscrd Date/Time/By: 02/21/2021 (6939) : By: [email or web address] Orig Print D/T: S: 02/21/2021 (8863) PAGE 1 Signed ReportBASIC METABOLIC PANEL 2021-02-21 [...] code = 9.5 mg/dL 8.0-10.5 N CA) [id number] 14:40:00 Test Item Value Reference Range Interpretation Comments PREALBUMIN (test code = PREALB) 17.5 mg/dL 16.0-40.0 N PROTHROMBIN [id number] 14:36:00 Test Item Value Reference Range Interpretation [...] Antiphospholipi d Antibodies, Pre vention of systemic em bolism - Acute Myocard ial Infarction (to prevent recurrent infar ct). CBC W/AUTO [id number] 14:15:00 Test Item Value Reference Range Interpretation [...] (test code NO = MDIFF) CBC W/AUTO [id number] 14:14:00 Test Item Value Reference Range Interpretation [...] DIFF REQUIRED (test code = MDIFF) POCT-GLUCOSE [id number] 17:15:00 Test Item Value Reference Range Interpretation Comments POC-GLUCOSE METER 221 mg/dL 70-110 H : TESTED A T [facility] 6720 (BEAKER) (test code = [facility], 1538) [address]: Forging Die Sinker/Techni arnold ID = [id number] for TURNER SALINAS POCT-GLUCOSE [id number] 12:18:00 Test Item Value Reference Range Interpretation Comments POC-GLUCOSE METER 201 mg/dL 70-110 H : TESTED A T [facility] 6720 (BEAKER) (test code = [facility], 1538) [address]: Forging Die Sinker/Techni arnold ID = [id number] for TURNER SALINAS POCT-GLUCOSE [id number] 07:41:00 Test Item Value Reference Range Interpretation Comments POC-GLUCOSE METER 131 mg/dL 70-110 H : TESTED A T [facility] 6720 (BEAKER) (test code = [facility], 1538) [address]: Forging Die Sinker/Techni arnold ID = [id number] for GREYSON BANDA, TURNER BASIC METABOLIC [id number] 06:48:00 Test Item Value Reference Range Interpretation [...] S NOT APPLICABLE FOR DIALYSIS PATIEN TS. Forging Die Sinker ID - MARK LB-TYPE NATRIURETIC FACTOR (BNP)2021-02-07 06:42:00 Test Item Value Reference Range Interpretation Comments B-TYPE NATRIURETIC PEPTIDE (BEAKER) 817 pg/mL 0-100 H (test code = 700) Forging Die Sinker ID - DALILA MHEPATIC FUNCTION [id number] 06:41:00 Test Item Value Reference Range Interpretation [...] (test code = 22 U/L 6-55 347) Forging Die Sinker ID - MARK LTROPONIN [id number] 06:37:00 Test Item Value Reference Range Interpretation [...] failure, acidosis, acute neurological disease, and persistent tachyarrhythmia.Forging Die Sinker ID - DALILA MCBC (HEMOGRAM ONLY) 2021-02-07 [...] 0-0 (BEAKER) (test code = 413) POCT-GLUCOSE [id number] 21:08:00 Test Item Value Reference Range Interpretation Comments POC-GLUCOSE METER 264 mg/dL 70-110 H : TESTED Violeta T [facility] 6720 (BEAKER) (test code = [facility] [place], 1538) [address]: Forging Die Sinker/Techni arnold ID = [id number] for NIRAV WOMACK POCT-GLUCOSE [id number] 16:42:00 Test Item Value Reference Range Interpretation Comments POC-GLUCOSE METER 249 mg/dL 70-110 H : TESTED A T [facility] 6720 (BEAKER) (test code = [facility], 1538) [address]: Forging Die Sinker/Techni arnold ID = [id number] for IVÁN CUELLAR POCT-GLUCOSE [id number] 13:04:00 Test Item Value Reference Range Interpretation Comments POC-GLUCOSE METER 139 mg/dL 70-110 H : TESTED A T [facility] 6720 (BEAKER) (test code = [facility], 1538) [address]: Forging Die Sinker/Techni arnold ID = [id number] for IVÁN CUELLAR POCT-GLUCOSE [id number] 08:04:00 Test Item Value Reference Range Interpretation Comments POC-GLUCOSE METER 111 mg/dL 70-110 H : TESTED A T [facility] 6720 (BEAKER) (test code = [facility], 1538) [address]: Forging Die Sinker/Techni arnold ID = [id number] for IVÁN CUELLAR BASIC METABOLIC [id number] 05:32:00 Test Item Value Reference Range Interpretation [...] S NOT APPLICABLE FOR DIALYSIS PATIEN TS. Forging Die Sinker ID - DALILA EPATIC FUNCTION [id number] 05:30:00 Test Item Value Reference Range Interpretation [...] (test code = 32 U/L 6-55 347) Forging Die Sinker ID - DALILA BC (HEMOGRAM ONLY)2021-02-06 04:58:00 Test Item Value Reference [...] 0-0 (BEAKER) (test code = 413) POCT-GLUCOSE [id number] 16:58:00 Test Item Value Reference Range Interpretation Comments POC-GLUCOSE METER 213 mg/dL 70-110 H : TESTED A T [facility] 6720 (BEAKER) (test code = [facility], 1538) 43951: Forging Die Sinker/Techni arnold ID = [id number] for CELENA BRANDT POCT-GLUCOSE [id number] 12:09:00 Test Item Value Reference Range Interpretation Comments POC-GLUCOSE METER 202 mg/dL 70-110 H : TESTED A T [facility] 6720 (BEAKER) (test code = [facility], 1538) 406[address]: Forging Die Sinker/Techni arnold ID = [id number] for CELENA BRANDT POCT-GLUCOSE [id number] 07:45:00 Test Item Value Reference Range Interpretation Comments POC-GLUCOSE METER 81 mg/dL 70-110 : TESTED A T [facility] 6720 (BEAKER) (test code = [facility], 1538) 33285: Forging Die Sinker/Techni arnold ID = [id number] for CELENA BRANDT BASIC METABOLIC [id number] 04:54:00 Test Item Value Reference Range Interpretation [...] S NOT APPLICABLE FOR DIALYSIS PATIEN TS. Forging Die Sinker ID - [id number] 04:45:00 Test Item Value Reference Range Interpretation Comments MAGNESIUM (BEAKER) (test code = 1.8 mg/dL 1.6-2.6 627) Forging Die Sinker ID - [id number] 04:45:00 Test Item Value Reference Range Interpretation Comments PHOSPHORUS (BEAKER) (test code = 3.6 mg/dL 2.3-4.7 604) Forging Die Sinker ID - ADMINHEPATIC FUNCTION [id number] 04:45:00 Test Item Value Reference Range Interpretation [...] (test code = 35 U/L 6-55 347) Forging Die Sinker ID - ADMINCBC W/PLT COUNT & AUTO [id number] 04:28:00 Test Item Value Reference Range Interpretation [...] PERCENT (BEAKER) (test code = 2801) POCT-GLUCOSE [id number] 17:20:00 Test Item Value Reference Range Interpretation Comments POC-GLUCOSE METER 194 mg/dL 70-110 H : TESTED A T [facility] 6720 (BEAKER) ([place], [address]: code = 1538) Forging Die Sinker/Techni arnold ID = [id number] for MAXIM LANDON IN POCT-GLUCOSE [id number] 11:44:00 Test Item Value Reference Range Interpretation Comments POC-GLUCOSE METER 260 mg/dL 70-110 H : TESTED A T [facility] 6720 (BEAKER) ([place], [address]: code = 1538) Forging Die Sinker/Techni arnold ID = [id number] for MAXIM L[place]ON IN POCT-GLUCOSE [id number] 07:26:00 Test Item Value Reference Range Interpretation Comments POC-GLUCOSE METER 143 mg/dL 70-110 H : [facility] (BEAKER[facility] ([place], [address]: code = 1538) Forging Die Sinker/Techni arnold ID = [id number] for MAXIM L[place]ON IN COMPREHENSIVE METABOLIC [id number] 04:27:00 Test Item Value Reference Range Interpretation [...] S NOT APPLICABLE FOR DIALYSIS PATIEN TS. Forging Die Sinker ID - [id number] 04:08:00 Test Item Value Reference Range Interpretation Comments MAGNESIUM (BEAKER) (test code = 1.7 mg/dL 1.6-2.6 627) Forging Die Sinker ID - [id number] 04:08:00 Test Item Value Reference Range Interpretation Comments PHOSPHORUS (BEAKER) (test code = 3.7 mg/dL 2.3-4.7 604) Forging Die Sinker ID - EDASIHEPATIC FUNCTION [id number] 04:08:00 Test Item Value Reference Range Interpretation [...] (test code = 35 U/L 6-55 347) Forging Die Sinker ID - EDASICALCIUM, [id number] 03:55:00 Test Item Value Reference Range Interpretation Comments CALCIUM IONIZED (BEAKER) (test 1.09 mmol/L 1.12-1.27 L code = 698) PH, BLOOD (BEAKER) (test code = 7.48 1810) CBC W/PLT COUNT & AUTO [id number] 03:50:00 Test Item Value Reference Range Interpretation [...] PERCENT (BEAKER) (test code = 2801) POCT-GLUCOSE [id number] 22:44:00 Test Item Value Reference Range Interpretation Comments POC-GLUCOSE METER 203 mg/dL 70-110 H : Notified RN/MD: (GABRIELA) (test code = TESTED AT [place] [id number] 6207) [facility], [address]: Forging Die Sinker/Techni arnold ID = [id number] for SUSANNE LAWSON POCT-GLUCOSE [id number] 16:57:00 Test Item Value Reference Range Interpretation Comments POC-GLUCOSE METER 213 mg/dL 70-110 H : TESTED [facility] 67 (GABRIELA) (test code = [place], 1538) [address]: Forging Die Sinker/Techni arnold ID = [id number] for ALKA PIERCE U/S, ABDOMINAL, [id number] 16:34:00Abdomen limited area? Add comment if clarification is needed.->Right upper quadrantReason for exam:->elevated [facility] : 1940 Sex: [...] Tamez Verified Date/Time: 02/03/2021 16:34:01 U/S, RENAL, [id number] 12:58:00Reason for exam:->akiShould this be performed at the bedside?->Yes [facility] : 1940 Sex: FFINAL REPORT [...] parenchymal disease. No hydronephrosis. Signed: Minnie Tamez Verified Date/Time: 02/03/2021 12:58:21 TITIS C [id number] 11:48:00 Test Item Value Reference Range Interpretation Comments HEPATITIS C ANTIBODY (BEAKER) Nonreactive Nonreactive (test code = 367) Forging Die Sinker ID - JING FHEPATITIS B [id number] 11:48:00 Test Item Value Reference Range Interpretation Comments HEPATITIS B CORE TOTAL ANTIBODY Nonreactive Nonreactive (BEAKER) (test code = 497) HEPATITIS B SURFACE ANTIBODY < mIU/mL <8.0 (BEAKER) (test code = 647) HEPATITIS B SURFACE ANTIGEN (2) Nonreactive Nonreactive (BEAKER) (test code = 2585) Forging Die Sinker ID - JING TAYLOR, CHEST, 1 VIEW, NON [id number] 11:33:00Reason for exam:->sobShould this be performed at the bedside?->Yes [facility] : 1940 Sex: FFINAL REPORT CLINICAL HISTORY: sob TECHNIQUE: 1 view of the chest COMPARISON: 01/31/2021 IMPRESSION: There are no focal infiltrates or pleural effusions. The cardiomediastinal silhouette is within normal limits for size. The visualized bones are intact. Signed: Davion Rivera Verified Date/Time: 02/03/2021 11:33:20 Reading Location: [facility] Radiology Reading Room POCT- GLUCOSE [id number] 11:21:00 Test Item Value Reference Range Interpretation Comments POC-GLUCOSE METER 188 mg/dL 70-110 H : Notified RN/MD: (GABRIELA) (test code = TESTED AT [place] [address] 1538) [facility], [address]: Forging Die Sinker/Techni arnold ID = [id number] for [facility] POCT-GLUCOSE [id number] 07:26:00 Test Item Value Reference Range Interpretation Comments POC-GLUCOSE METER 122 mg/dL 70-110 H : Notified RN/MD: (GABRIELA) (test code = TESTED AT [facility] 6720 7060) [place], [address]: Forging Die Sinker/Techni arnold ID = [id number] for [facility] COMPREHENSIVE METABOLIC [id number] 05:22:00 Test Item Value Reference Range Interpretation [...] S NOT APPLICABLE FOR DIALYSIS PATIEN TS. Forging Die Sinker ID - DALILA MB-TYPE NATRIURETIC FACTOR (BNP)2021-02-03 05:05:00 Test Item Value Reference Range Interpretation Comments B-TYPE NATRIURETIC PEPTIDE 2229 pg/mL 0-100 H (BEAKER) (test code = 700) Forging Die Sinker ID - DALILA [id number] 05:02:00 Test Item Value Reference Range Interpretation Comments MAGNESIUM (BEAKER) (test code = 1.6 mg/dL 1.6-2.6 627) Forging Die Sinker ID - DALILA [id number] 05:02:00 Test Item Value Reference Range Interpretation Comments PHOSPHORUS (BEAKER) (test code = 4.1 mg/dL 2.3-4.7 604) Forging Die Sinker ID - DALILA MCALCIUM, [id number] 04:39:00 Test Item Value Reference Range Interpretation Comments CALCIUM IONIZED (BEAKER) (test 1.14 mmol/L 1.12-1.27 code = 698) PH, BLOOD (BEAKER) (test code = 7.48 1810) CBC W/PLT COUNT & AUTO [id number] 04:38:00 Test Item Value Reference Range Interpretation [...] PERCENT (BEAKER) (test code = 2801) POCT-GLUCOSE [id number] 21:22:00 Test Item Value Reference Range Interpretation Comments POC-GLUCOSE METER 165 mg/dL 70-110 H : TESTED A T [facility] 6720 (BEAKER) (test code = [place]I [place], 1538) [address]: Forging Die Sinker/Techni arnold ID = [id number] for PH ILIP, JA URINALYSIS W/ [id number] 21:08:00 Test Item Value Reference Range Interpretation [...] 516) SOURCE(BEAKER) (test code = Urine, Voided 9699) Forging Die Sinker ID - [auto]Forging Die Sinker ID - techCREATININE, RANDOM [id number] 21:08:00 Test Item Value Reference Range Interpretation Comments CREATININE URINE (BEAKER) (test 38.0 mg/dL code = 375) Reference Range: No NormalsOperator ID - BSPROTEIN, RANDOM [id number] 21:08:00 Test Item Value Reference Range Interpretation Comments PROTEIN, URINE (BEAKER) (test code = 78 mg/dL 0-14 H 1569) Forging Die Sinker ID - BSPOCT-GLUCOSE [id number] 17:47:00 Test Item Value Reference Range Interpretation Comments POC-GLUCOSE METER 128 mg/dL 70-110 H : TESTED A T [facility] 6720 (BEAKER) (test code = [facility], 153) [address]: Forging Die Sinker/Techni arnold ID = [id number] for ZAPATA NNY, ALKA [id number] 13:18:00 Test Item Value Reference Range Interpretation Comments ACTIVATED CLOTTING TIME 263 sec : 74 -137 seconds, (BEAKER) (test code = Baseli ne: TESTED AT 441) [facility] 6720 [facility], 770 30: Forging Die Sinker/Techni arnold ID = [id number] for At Nazario hardenn [id number] 12:55:00 Test Item Value Reference Range Interpretation Comments ACTIVATED CLOTTING TIME 285 sec : 74 -137 seconds, (BEAKER) (test code = Baseli ne: TESTED AT 441) [facility] 6720 [facility], 770 30: Forging Die Sinker/Techni arnold ID = [id number] for CO NDE, LEBRON POCT-GLUCOSE [id number] 12:08:00 Test Item Value Reference Range Interpretation Comments POC-GLUCOSE METER 151 mg/dL 70-110 H : TESTED A T [facility] 6720 (BEAKER) (test code = [facility], 153) [address]: Forging Die Sinker/Techni arnold ID = [id number] for ZAPATA NNY, ALKA POCT-GLUCOSE [id number] 08:00:00 Test Item Value Reference Range Interpretation Comments POC-GLUCOSE METER 209 mg/dL 70-110 H : TESTED A T [facility] 6720 (BEAKER) (test code = [place], 1538) [address]: Forging Die Sinker/Techni arnold ID = [id number] for ALKA PIERCE TROPONIN [id number] 07:08:00 Test Item Value Reference Range Interpretation [...] failure, acidosis, acute neurological disease, and persistent tachyarrhythmia.Forging Die Sinker ID - SLADECHUY LBASIC METABOLIC [id number] 06:41:00 Test Item Value Reference Range Interpretation [...] S NOT APPLICABLE FOR DIALYSIS PATIEN TS. Forging Die Sinker ID - PIAYA [id number] 06:29:00 Test Item Value Reference Range Interpretation [...] 0-0 (BEAKER) (test code = 413) TROPONIN [id number] 23:15:00 Test Item Value Reference Range Interpretation [...] failure, acidosis, acute neurological disease, and persistent tachyarrhythmia.Forging Die Sinker ID - BSPOCT-GLUCOSE METER 2021-02-01 20:47:00 Test Item Value Reference Range Interpretation Comments POC-GLUCOSE METER 304 mg/dL 70-110 H : TESTED A T [facility] 67[address] [facility] (test code = [facility], 1538) [address]: Forging Die Sinker/Techni arnold ID = [id number] for JA CAAL POCT-GLUCOSE [id number] 17:53:00 Test Item Value Reference Range Interpretation Comments POC-GLUCOSE METER 182 mg/dL 70-110 H : [facility] (BEAKER) (test code = [facility], 1538) [address]: Forging Die Sinker/Techni arnold ID = [id number] for KIM PULIDO [id number] 16:54:00 Test Item Value Reference Range Interpretation Comments ACTIVATED CLOTTING TIME 323 sec : 74 -137 seconds, (BEAKER) (test code = Baseli ne: TESTED AT 441) [address], [facility] 30: Forging Die Sinker/Techni arnold ID = [id number] for SA KAYLEE GAUTAME [id number] 16:23:00 Test Item Value Reference Range Interpretation Comments ACTIVATED CLOTTING TIME 285 sec : 74 -137 seconds, (BEAKER) (test code = Baseli ne: TESTED AT 441) [address], [facility] 30: Forging Die Sinker/Techni arnold ID = [id number] for JOAQUIN PARKER [id number] 15:59:00 Test Item Value Reference Range Interpretation Comments ACTIVATED CLOTTING TIME 224 sec : 74 -137 seconds, (BEAKER) (test code = Baseli ne: TESTED AT 441) [address], [facility] 30: Forging Die Sinker/Techni arnold ID = [id number] for PASHA PARKERA TROPONIN [id number] 13:53:00 Test Item Value Reference Range Interpretation Comments [facility]ONIN I [facility] (test code = 0.65 ng/mL 0.00-0.03 [facility]) Troponin I (TnI) levels must be [...] failure, acidosis, acute neurological disease, and persistent tachyarrhythmia.Forging Die Sinker ID - JING [id number] 13:30:00 Test Item Value Reference Range Interpretation Comments PARTIAL THROMBOPLASTIN TIME 24.9 seconds 22.5-36.0 (BEAKER) (test code = 760) POCT-GLUCOSE [id number] 12:15:00 Test Item Value Reference Range Interpretation Comments POC-GLUCOSE METER 176 mg/dL 70-110 H : TESTED A T [facility] 6720 (BEAKER) (test code = SHAJI [place], 1538) [address]: Forging Die Sinker/Techni arnold ID = [id number] for Jose Luis Edwards HEMOGLOBIN [id number] 10:18:00 Test Item Value Reference Range Interpretation Comments HEMOGLOBIN A1C (BEAKER) (test code = 10.9 % 4.3-6.1 H 368) BASIC METABOLIC [id number] 10:09:00 Test Item Value Reference Range Interpretation [...] S NOT APPLICABLE FOR DIALYSIS PATIEN TS. Forging Die Sinker ID - JING FLIPID [id number] 10:08:00 Test Item Value Reference Range Interpretation [...] Borderline 130-159 High 160-189 Very High >=190 Forging Die Sinker ID - JING FPOCT-GLUCOSE [id number] 08:09:00 Test Item Value Reference Range Interpretation Comments POC-GLUCOSE METER 156 mg/dL 70-110 H : TESTED A T [facility] 6720 ([facility]) (test code = HSAJI [place], 1538) [address]: Forging Die Sinker/Techni arnold ID = [id number] for Jose Luis Edwards TROPONIN [id number] 07:21:00 Test Item Value Reference Range Interpretation Comments TROPONIN I ([facility]) (test code = 0.85 ng/mL 0.00-0.03 [facility]) Troponin I (TnI) levels must be [...] failure, acidosis, acute neurological disease, and persistent tachyarrhythmia.Forging Die Sinker ID - DALILA MB-TYPE NATRIURETIC FACTOR (BNP)2021-02-01 07:17:00 Test Item Value Reference Range Interpretation Comments B-TYPE NATRIURETIC PEPTIDE (GABRIELA) 204 pg/mL 0-100 H (test code = 700) Forging Die Sinker ID - DALILA [id number] 06:55:00 Test Item Value Reference Range Interpretation [...] 0-0 (BEAKER) (test code = 413) POCT-GLUCOSE [id number] 23:35:00 Test Item Value Reference Range Interpretation Comments POC-GLUCOSE METER 232 mg/dL 70-110 H : [facility] (BEAKER) (test code = SHAJI He [facility], 1538) [address]: Forging Die Sinker/Techni arnold ID = [id number] for Lashay Fontana TROPONIN [id number] 23:35:00 Test Item Value Reference Range Interpretation [...] failure, acidosis, acute neurological disease, and persistent tachyarrhythmia.Forging Die Sinker ID - DBBASIC METABOLIC PANEL 2021-01-31 23:32:00 [...] S NOT APPLICABLE FOR DIALYSIS PATIEN TS. Forging Die Sinker ID - [id number] 22:44:00 Test Item Value Reference Range Interpretation [...] = 413) RAD, CHEST, 1 VIEW, NON [id number] 21:59:00Reason for exam:->shortness of breathShould this be performed at the bedside?->Yes [facility] : 1940 Sex: [...] Signed: Jahaira Martinez Verified Date/Time: 01/31/2021 21:59:25 JQ-GmD-5 (COVID-19) RNA [Presence] in Respiratory specimen by SHERI with probe [id number] 23:06:42 Test Item Value Reference Range Interpretation Comments SARS-CoV-2 (COVID-19) RNA Not detected Not-Detected [Presence] in Respiratory specimen by SHERI with probe detection (test code = 92176-2) [place] WESTPOCT-GLUCOSE [id number] 08:39:00 Test Item Value Reference Range Interpretation Comments POC-GLUCOSE METER 113 mg/dL 70-110 H TESTED AT [facility] 7200 (GABRIELA) (test code [place] = 1538) [place] [address] Notes Date/Time Note Provider Source 2021-03-16 12:47:00-00:00 [id number] [place] [address] PATIENT NAME: CARLITA HERNANDEZ ADMIT DATE: 02/23/21 ACCOUNT NO: [id number] ROOM NO: G.3397 AGE: 80 REPORT TYPE: eTRANSESOPHAGEAL ECHO REPORT SEX: F ADMITTING PHYSICIAN:Luda Kruse MD ATTENDING PHYSICIAN:Norberto James MD *[place] [address] Transesophageal Echocardiogram for Chandni Patient: Carlita Hernandez Study Date: 02/23/2021 BP: Location: [facility] URN: [id number] 6180 : 1940 Age: 80 Height: / Gender: F Weight: / BMI/BSA: / *Ordering Physician: * Luda Kruse *Interpreting Physician: * Aixa Woodall MD Study data: Transesophageal Echocardiogram for Helio ramachandran. Consent: The risks, benefits, and alternatives to the procedu re and sedation were explained to the patient and informed consent wa s obtained. Procedure: Initial setup: The patient was brought to the [facility] in the fasting state.Intravenous access was obtained. Surface E CG leads, blood pressure measurements, and pulse oximetric signals were m onitored. Sedation. Deep sedation was administered by anesthesiology mckenna valenzuela. Transesophageal echocardiography was performed. A transesophagea l probe was inserted by the anesthesiologist. Images were obtained using a [employer] cardiac ultrasound machine. Study completion: The patient tolerated the procedure well. There were no complications. Findings Conclusions Summary: 1. Study data: Transesophageal Echocardiogram noa Tariq. The patient PATIENT NAME: CARLITA HERNANDEZ tolerated the procedure well. 2. Procedure narrative: Transesophageal echocard iography was performed. A transesophageal probe was inserted by the [facility] sthesiologist. Images were obtained using a [employer] cardiac ultrasound mac carlos. Prepared and electronically signed by Aixa Woodall MD 03/16/2021 12:47 Electronically Signed by Luda Kruse MD on at 1248 PATIENT NAME: CARLITA HERNANDEZ ACCOUNT #: G [id number] 2021-02-25 10:29:00-00:00 [facility] ([facility]) Discharge Summary REPORT#:[id number] REPORT STATUS: Signed DATE:02/25/21 TIME: 1029 PATIENT: CARLITA HERNANDEZ UNIT #: [id number] ROOM/BED: [place] [address] : 39 AGE: 80 SEX: F ATTEND: Shayla James MD ADM AUTHOR: Bijal Nguyễn MD * ALL edits or amendments must be made on the [employer]/computer document * General Information Discharge date: 02/25/21 [...] GI: soft, non-tender, no guarding, no rebound Neuro/WOOD STOCK BLANK HANDLER: alert, oriented X 3 Discharge Instructions PCP [...] MD on 0 02/25/21 at 1308 RPT #:[id number] END OF REPORT 2021-02-25 10:28:00-00:00 [facility] Hospitalist Progress Note REPORT#:[id number] REPORT STATUS: Signed DATE:02/25/21 TIME: 1028 PATIENT: CARLITA HERNANDEZ UNIT #: [id number] ROOM/BED: [place] [address] : 39 AGE: 80 SEX: F ATTEND: Shayla James MD ADM AUTHOR: Bijal Nguyễn MD * ALL edits or amendments must be made on the [employer]/computer document * Subjective Chief Complaint: f/u s/p [...] 102.2 93 02/24 2245 Nasal 2 cannula 02/244 36.6 93 18 138/71 93.2 93 02/24 [...] soft, no distention Musculoskeletal: no CVA tenderness Neuro/WOOD STOCK BLANK HANDLER: alert, oriented X 3, CNII-XII intact Lymphatics: [...] 02/25 02/25 02/24 02/24 1053 0725 0242 8351 1127 Chemistry POC Creatinine (0.6 - 1.0 mg/dL) [...] % (Auto) (14.0 - 32.0 %) 19.4 [place] % (Auto) (4.8 - 9.0 %) 10.3 H Eos % (Auto) (0.3 - 3.7 %) 8.0 H Baso % (Auto) (0.0 - 2.0 %) 0.5 Neut # (Auto) (2.0 - 7.6 x10 3/uL) 3.93 Lymph # (Auto) (1.0 - 3.8 x10 3/uL) 1.24 [place] # (Auto) (0.1 - 0.8 x10 3/uL) [...] size. No acute o sseous abnormality. SL: [id number] Impression By: [email or web address] - Kayla Leal M.D. [...] MD on 0 02/25/21 at 1307 RPT #:[id number] END OF REPORT 2021-02-25 10:26:00-00:00 [facility] ([facility]) DT PROGRESS NOTE REPORT#:[id number] REPORT STATUS: Signed DATE:02/25/21 TIME: 1026 PATIENT: CARLITA HERNANDEZ UNIT #: [id number] ROOM/BED: [address] : 39 AGE: 80 SEX: F ATTEND: Shayla James MD ADM AUTHOR: Bekah Wan * ALL edits or amendments must be made on the [employer]/computer document * Progress Note Progress Note Cardiology/Structural [...] 02/25 02/25 02/24 02/24 1053 0725 0242 5328 3961 Chemistry POC Creatinine (0.6 - 1.0 mg/dL) [...] % (Auto) (14.0 - 32.0 %) 19.4 [place] % (Auto) (4.8 - 9.0 %) 10.3 H Eos % (Auto) (0.3 - 3.7 %) 8.0 H Baso % (Auto) (0.0 - 2.0 %) 0.5 Neut # (Auto) (2.0 - 7.6 x10 3/uL) 3.93 Lymph # (Auto) (1.0 - 3.8 x10 3/uL) 1.24 [place] # (Auto) (0.1 - 0.8 x10 3/uL) [...] f breath lightheadedness or dizziness to her meat stuffer. Electronically Signed by Bekah Wan on 0 03/11/21 at 1247 RPT #:[id number] END OF REPORT 2021-02-25 10:26:00-00:00 [facility] DT PROGRESS NOTE REPORT#:[id number] REPORT STATUS: Signed DATE:02/25/21 TIME: 1026 PATIENT: CARLITA HERNANDEZ UNIT #: [id number] ROOM/BED: [address] : 39 AGE: 80 SEX: F ATTEND: Shayla James MD ADM AUTHOR: Bekah Wan * ALL edits or amendments must be made on the [employer]/computer document * See Addendum Progress Note Progress [...] Temp 36.9 02/25 1105 Pulse 96 02/25 110 Resp 15 02/25 [...] 02/25 02/25 02/25 02/24 02/24 1053 0725 4332 2220 5558 Chemistry POC Creatinine (0.6 - 1.0 mg/dL) 1.8 H POC Glucose (70 - 110 MG/DL) 64 L 163 H 203 H 148 H POC Glucose (mg/dL) (70 - 110 [...] % (Auto) (14.0 - 32.0 %) 19.4 [place] % (Auto) (4.8 - 9.0 %) 10.3 H Eos % (Auto) (0.3 - 3.7 %) 8.0 H Baso % (Auto) (0.0 - 2.0 %) 0.5 Neut # (Auto) (2.0 - 7.6 x10 3/uL) 3.93 Lymph # (Auto) (1.0 - 3.8 x10 3/uL) 1.24 [place] # (Auto) (0.1 - 0.8 x10 3/uL) [...] then eliquis will be discontinued and david juma will be initiated on aspirin and [...] f breath lightheadedness or dizziness to her meat stuffer. Electronically Signed by Bekah Wan on 0 03/11/21 at 1247 Addendum 1: 03/30/21 1231 by Sergey Alatorre MD I have seen and examined the pt, I Agree with e findings and plan as documented by Bekah Wan. Electronically Signed by Sergey Alatorre MD on at 1232 RPT #:[id number] END OF REPORT 2021-02-24 18:49:00-00:00 [id number] [address] PATIENT NAME: CARLITA HERNANDEZ ADMIT DATE: 02/23/21 ACCOUNT NO: [id number] ROOM NO: 3397 AGE: 80 REPORT TYPE: CONSULTATION REPORT SEX: [...] mentioned in HPI. PATIENT NAME: CARLITA HERNANDEZ MEACHAM ACCOUNT #: G [id number] PHYSICAL EXAMINATION: VITAL SIGNS: Blood pressure 126/61, [...] appendage occlusion device in place. ASSESSMENT: 1. Lupue-ut-eatwmme normal to macrocytic anemia - multifactorial secondary [...] PATIENT NAME: CARLITA HERNANDEZ ACCOUNT #: G [id number] Conf#: [id number]#: [id number] Authenticated by Pietro Jarrell MD On 03/28/2021 05:15:19 PM Electronically Signed by Pietro Jarrell MD on at 1715 PATIENT NAME: CARLITA HERNANDEZ ACCOUNT #: G [id number] 2021-02-24 18:29:00-00:00 [id number] [place] [address] PATIENT NAME: CARLITA HERNANDEZ ADMIT DATE: 02/23/21 ACCOUNT NO: [id number] [place]: [facility] AGE: 80 REPORT TYPE: eECHOCARDIOGRAM REPORT SEX: F ADMITTING PHYSICIAN:Luda Kruse MD ATTENDING PHYSICIAN:Norberto James MD *[place] [address] Limited Transthoracic Echocardiogram Patient: Carlita Hernandez Study Date: 02/24/2021 BP: 115 / 64 Location: [facility] URN: [id number] 6180 : 1940 Age: 80 Height: 63.8 in / 162 cm Gender: F Weight: 118 .8 lb / 54 kg BMI/BSA: 20.6 kg/m 2 / 1.56 m 2 *Ordering Physician: * Sergey Alatorre MD *Interpreting Physician: * Sergey Alatorre MD *Splitter Tender: * NÉSTOR Francis Indications: EVAL EFFUSION. Study [...] PATIENT NAME: CARLITA HERNANDEZ ACCOUNT #: G [id number] Right ventricle Value Ref Pressure, S 44 [...] PATIENT NAME: CARLITA HERNANDEZ ACCOUNT #: G [id number] 2021-02-24 12:44:00-00:00 [facility]) Hospitalist Progress Note REPORT#:[id number] REPORT STATUS: Signed DATE:02/24/21 TIME: 1244 PATIENT: CARLITA HERNANDEZ UNIT #: [id number] ROOM/BED: [place] [address] : 39 AGE: 80 SEX: F ATTEND: Shayla James MD ADM AUTHOR: Bijal Nguyễn MD * ALL edits or amendments must be made on the [employer]/computer document * Subjective Chief Complaint: f/u s/p [...] soft, no distention Musculoskeletal: no CVA tenderness Neuro/WOOD STOCK BLANK HANDLER: alert, oriented X 3, CNII-XII intact Lymphatics: [...] % (Auto) (14.0 - 32.0 %) 17.8 [place] % (Auto) (4.8 - 9.0 %) 9.5 H Eos % (Auto) (0.3 - 3.7 %) 7.8 H Baso % (Auto) (0.0 - 2.0 %) 0.6 Neut # (Auto) (2.0 - 7.6 x10 3/uL) 4.14 Lymph # (Auto) (1.0 - 3.8 x10 3/uL) 1.16 [place] # (Auto) (0.1 - 0.8 x10 3/uL) [...] Report Impression - Status: SIGNED Entered: 02/23/2021 8154 IMPRESSION: 1. Watchman device placement. 2. Interval [...] MD on 0 02/24/21 at 1253 RPT #:[id number] END OF REPORT 2021-02-24 11:07:00-00:00 [facility] ([facility]) Cardiology Progress Note REPORT#:[id number] REPORT STATUS: Signed DATE:02/24/21 TIME: 1107 PATIENT: CARLITA HERNANDEZ MEACHAM UNIT #: [id number] ROOM/BED: 3340-1 : 39 AGE: 80 SEX: F ATTEND: Shayla James MD ADM AUTHOR: Bekah Wan * ALL edits or amendments must be made on the [employer]/computer document * Subjective Chief Complaint: Post Watchman HPI: Calrita Hernandez is an 80-year-old female w ith [...] HCl 0 .STK-MED ONE .ROUTE (DC) Rocuronium [place] 0 .STK-MED ONE IV (DC) Sodium Chloride [...] * Right groin suture removed by this GRAILS WEB APPLICATION DEVELOPER. no infe ction, bleeding, or hematoma. Dermabond [...] Wan on 0 02/25/21 at 0820 RPT #:[id number] END OF REPORT 2021-02-24 11:07:00-00:00 [facility] Cardiology Progress Note REPORT#:[id number] REPORT STATUS: Signed DATE:02/24/21 TIME: 1107 PATIENT: CARLITA HERNANDEZ UNIT #: [id number] ROOM/BED: 3397-1 : 39 AGE: 80 SEX: F ATTEND: Shayla James MD ADM AUTHOR: Agbale,Olanike TECHNICAL SALES SPECIALIST * ALL edits or amendments must be [...] HCl 0 .STK-MED ONE .ROUTE (DC) Rocuronium [place] 0 .STK-MED ONE IV (DC) Sodium Chloride [...] * Right groin suture removed by this GRAILS WEB APPLICATION DEVELOPER. no infe ction, bleeding, or hematoma. Dermabond [...] Sergey Alatorre MD on at 1231 RPT #:[id number] END OF REPORT 2021-02-23 17:18:00-00:00 [facility] Hospitalist History Physical REPORT#:[id number] REPORT STATUS: Signed DATE:02/23/21 TIME: 1718 PATIENT: CARLITA HERNANDEZ UNIT #: [id number] ROOM/BED: G.3397-1 : 39 AGE: 80 SEX: F ATTEND: Shalya James MD ADM AUTHOR: Schuyler Sotelo NP * ALL edits or amendments must be made on the [employer]/computer document * History of Present Illness HPI [...] normal bowel sounds Musculoskeletal: no CVA tenderness Neuro/WOOD STOCK BLANK HANDLER: alert, oriented X 3, CNII-XII intact Lymphatics: [...] NP on at 1823 at 1302 RPT #:[id number] END OF REPORT 2021-02-23 17:18:00-00:00 [facility] ([facility]) Hospitalist History Physical REPORT#:[id number] REPORT STATUS: Signed DATE:02/23/21 TIME: 8 PATIENT: CARLITA HERNANDEZ UNIT #: [id number] ROOM/BED: [place] [address] : 39 AGE: 80 SEX: F ATTEND: Shayla James MD ADM AUTHOR: Schuyler Sotelo NP * ALL edits or amendments must be made on the [employer]/computer document * History of Present Illness HPI Chief complaint: Persistent atrial fibrillation PCP: PCP: Undefined Provider HPI: Carlita Mahmood is an 80 year old female with pa st history of atrial fibrillation, COPD, CAD, HLD, [...] normal bowel sounds Musculoskeletal: no CVA tenderness Neuro/[employer]ER: alert, oriented X 3, CNII-XII intact Lymphatics: [...] Schuyler Sotelo NP on at 1823 RPT #:[id number] END OF REPORT 2021-02-23 17:14:00-00:00 [id number] [place] [address] PATIENT NAME: CARLITA HERNANDEZ ADMIT DATE: 02/23/21 ACCOUNT NO: [id number] ROOM NO: [facility] AGE: 80 REPORT TYPE: eECHOCARDIOGRAM REPORT SEX: F ADMITTING PHYSICIAN:Luda Kruse MD ATTENDING PHYSICIAN:Norberto James MD *[place] [address] Transthoracic Echocardiogram Patient: Carlita Hernandez Study Date: 02/23/2021 BP: 108 / 67 Location: [facility] URN: [id number] : 1940 Age: 80 Height: 64 in / 162.6 cm Gender: F Weight: 119 .9 lb / 54.5 kg BMI/BSA: 20.6 kg/m 2 / 1.57 m 2 *Ordering Physician: * Bekah Wan *Interpreting Physician: * Sergey Alatorre MD *Splitter Tender: * Beckie Freeman Indications: Rule out pericardial [...] PATIENT NAME: CARLITA HERNANDEZ ACCOUNT #: G [id number] Measurements Left ventricle Value Ref CHARLIE, LAX [...] PATIENT NAME: CARLITA HERNANDEZ ACCOUNT #: G [id number] 2021-02-23 13:56:00-00:00 [id number] [place] [id number] PATIENT NAME: CARLITA CABA ADMIT DATE: 02/23/21 ACCOUNT NO: [id number] ROOM NO: GUILLERMO AGE: 80 REPORT TYPE: eELECTROCARDIOGRAM REPORT SEX: F ADMITTING PHYSICIAN:Luda Kruse MD ATTENDING PHYSICIAN:Norberto James MD Order: [id number] Test Reason : WATCHMAN Test Date/Time Stamp: [...] PATIENT NAME: CARLITA CABA ACCOUNT #: G [id number] 2021-02-21 13:38:00-00:00 [id number] [place] [address] PATIENT NAME: CARLITA CABA ADMIT DATE: ACCOUNT NO: [id number] ROOM NO: AGE: 80 REPORT TYPE: eELECTROCARDIOGRAM REPORT SEX: F ADMITTING PHYSICIAN: ATTENDING PHYSICIAN:Luda Kruse MD Order: [id number] Test Reason : PRE-OP WATCHMAN Test Date/Time [...] PATIENT NAME: CARLITA CABA ACCOUNT #: G [id number]
[2023-06-25 10:58] LABS: Protime INR 1.05
[2023-06-25 10:59] LABS: Hematocrit 32.9 % (36.0-45.0); MCV 84.9 fL (80-100); MPV 9.5 fL (7.6-11.3); Platelets 227 thou/uL (152-406); RBC Red Blood Cell Count 3.88 M/uL (3.86-4.86)
--- NOTE | 2023-06-25 11:07 | RAD REPORT ---
EXAM DESCRIPTION: CT - Stone Protocol - 06/25/2023 10:29 am CLINICAL HISTORY: Abd pain;Abdominal distention COMPARISON: Abdomen Pelvis Wo Contrast dated 06/09/2023; Abdomen Pelvis W/Wo Contrast dated 2019 TECHNIQUE: CT imaging of the abdomen and pelvis was performed without IV contrast. Multiplanar refor mats were generated and reviewed. All CT scans are performed using dose optimization technique as appropriate and may include automated exposure control or mA/KV adjustment according to patient size. FINDINGS: Stable small to moderate right and small left pleural effusions. Diffuse body wall edema, progressive since the prior exam. . The liver and spleen show no focal suspicious findings. Scattered punctate calcifications throughout liver and spleen are stable and suggest remote granulomatous infection. Pancreas and adrenal glands a re unremarkable. Gallbladder and biliary tree are also without suspicious finding, with spurious excr etion of contrast in the gallbladder. . No hydronephrosis or suspicious renal mass. No significant adrenal finding. Isodense masses and pyel onephritis cannot be excluded in the absence of IV contrast. No dilated bowel loops or bowel wall thickening. Stable mild free pelvic a situs. Mildly progressive edema/fat stranding along the mesenteric root. No free air or inflammatory stranding. No hernia, mass or bulky lymphadenopathy. The urinary bladder is without significant finding. No suspicious bony findings. IMPRESSION: Stable free pelvic bursitis. Progressive edema/fat stranding along the mesenteric root, which is nonspecific, favored to relate to relate to fluid overload, although other nonspecific infla mmatory processes in the abdomen, such as enteritis could result in a similar picture. Please correla te with patient's fluid status. Diffuse body wall edema progressive since the prior exam, also suggestive of fluid overload. Other stable findings as above, including bilateral pleural effusions.
[2023-06-25 11:12] LABS: Albumin 3.1 g/dL (3.4-5.0); Bilirubin Direct 0.1 mg/dL (0-0.2); Bilirubin Indirect, Calculated 0.2 mg/dL (0.2-0.8); Bilirubin Total 0.3 mg/dL (0.2-1.0); Magnesium 2.1 mg/dL (1.6-2.4); Phosphorus 5.2 mg/dL (2.5-4.9); Potassium 4.2 mEq/L (3.5-5.1); Protein, Total 7.8 g/dL (6.4-8.2); Troponin High Sensitivity 43.6 pg/mL (<58.9)
--- NOTE | 2023-06-25 11:18 | RAD REPORT ---
EXAM DESCRIPTION: RADChest Single View06/25/2023 10:46 am CLINICAL HISTORY: COUGH COMPARISON: Chest Single View dated 03/28/2023; Chest Pa And Lat (2 Views) dated 10/17/2022; Chest Sin gle View dated 12/18/2021; Chest Single View dated 12/14/2021 TECHNIQUE: Portable AP view of the chest. FINDINGS: The lungs show minimal bibasilar opacities favored to represent atelectasis. Streaky centr al opacification. No pneumothorax or effusion. The cardiomediastinal contours are unchanged, with sug gested calcified right hilar lymph nodes, stable. IMPRESSION: Streaky central opacities which may relate to atelectasis or reactive airway changes. No findings to suggest focal pneumonia.
[2023-06-25 11:49] LABS: Platelet Estimate ADEQ
[2023-06-25 11:50] LABS: Anisocytosis 3+; Blood Morphology Comment NOTED (NOT SEEN); Target Cells FEW
--- NOTE | 2023-06-25 11:57 | ER ---
Nurse's Notes [facility] Name: Carlita Villalobos Age: 82 yrs Sex: Female : 1940 Arrival Date: 06/25/2023 Time: 10:03 Bed 18 Private MD: Diagnosis: Weakness;Bradycardia, unspecified;Unspecified kidney failure;Type 1 diabetes mellitus with hyperglycemia;Unspecified combined systolic (congestive) and diastolic (congestive) heart failure Presentation: 06/25 10:19 Chief complaint: Patient states: Sent by Dr Servin for abnormal lab values, elevated ph potassium and decreased renal function, pt reports feeling "bloated and tired," Family reports that BGL this am was 66. Coronavirus screen: Vaccine status: Patient reports being unvaccinated. Ebola Screen: No symptoms or risks identified at this time. Initial Sepsis Screen: Does the patient meet any 2 criteria? No. Patient's initial sepsis screen is negative. Does the patient have a suspected source of infection? No. Patient's initial sepsis screen is negative. Risk Assessment: Do you want to hurt yourself or someone else? Patient reports no desire to harm self or others. Onset of symptoms was June 25, 2023. 10:19 Method Of Arrival: Wheelchair ph 10:19 Acuity: PARESH 2 ph Historical: - Allergies: 10:21 Sulfa (Sulfonamide Antibiotics); ph - PMHx: 10:21 Diabetes - IDDM; Hypertension; Hypothyroidism; ph - PSHx: 10:21 back surgery; cardiac stents; colonscopy; hysterectomy; Tonsillectomy; ph - Immunization history:: Adult Immunizations unknown. - Social history:: Smoking status: Patient denies any tobacco usage or history of. - Family history:: not pertinent. Screenin:59 [facility] ED Fall Risk Assessment (Adult) Score/Fall Risk Level 0 - 2 = Low Risk nj1 Oriented to surroundings, Maintained a safe environment, Hourly rounding (assess needs \\T\\ fall precautionary measures) done. Abuse screen: Denies threats or abuse. Denies injuries from another. Nutritional screening: No deficits noted. Tuberculosis screening: No symptoms or risk factors identified. Assessment: 10:28 Reassessment: Not in room at this time, in imaging. nj1 10:35 General: Appears in no apparent distress. comfortable, Behavior is calm, cooperative, nj1 appropriate for age. Pain: Denies pain. Neuro: Level of Consciousness is awake, alert, obeys commands, Oriented to person, place, time, situation. 10:35 Neuro: Reports weakness in Generalized. Cardiovascular: Patient's skin is warm and dry. nj1 Rhythm is sinus rhythm. Respiratory: Airway is patent Respiratory effort is even, unlabored. GI: Reports bloating. 10:45 Reassessment: Ok by Dr Mcgee for patient to take her blood pressure med: Hydralazine nj1 10mg PO. 12:16 Reassessment: Patient appears in no apparent distress at this time. Patient and/or nj1 family updated on plan of care and expected duration. Pain level reassessed. Patient is alert, oriented x 3, equal unlabored respirations, skin warm/dry/pink. Patient denies pain at this time. 14:03 Reassessment: Patient appears in no apparent distress at this time. Patient and/or nj1 family updated on plan of care and expected duration. Pain level reassessed. Patient is alert, oriented x 3, equal unlabored respirations, skin warm/dry/pink. Patient denies pain at this time. Vital Signs: 10:19 BP 214 / 80; Pulse 48; Resp 18; Temp 97.2; Pulse Ox 98% on R/A; Weight 60.33 kg; Height ph 5 ft. 4 in. ; 11:03 BP 184 / 90; Pulse 44; Resp 16; Pulse Ox 100% on R/A; nj1 12:15 BP 176 / 67; Pulse 43; Resp 14; Pulse Ox 100% on R/A; nj1 14:02 BP 169 / 68; Pulse 45; Resp 12; Pulse Ox 100% ; nj1 10:19 Body Mass Index 22.83 (60.33 kg, 162.56 cm) ph ED Course: 10:05 Patient arrived in ED. im 10:06 Isaac Mcgee MD is Attending Physician. mitchell 10:12 Carmen Hernandez, KIRAN is Primary Nurse. nj1 10:21 Triage completed. ph 10:22 Arm band placed on Patient placed in an exam room, on a stretcher, on potline monitor, ph on pulse oximetry. 10:31 CT Stone Protocol In Process Unspecified. EDMS 10:40 Patient has correct armband on for positive identification. Bed in low position. Call nj1 light in reach. Adult w/ patient. 10:40 Provided Education on: fall precautions, call light. [facility] 10:40 Inserted saline lock: 22 gauge in right forearm, using aseptic technique. Blood [facility] collected. 10:47 XRAY Chest (1 view) In Process Unspecified. EDTX 11:50 Kapil Servin MD is Hospitalizing Provider. [facility] 14:00 No provider procedures requiring assistance completed. Patient admitted, IV remains in [facility] place. Administered Medications: 12:15 Drug: Furosemide IVP 40 mg Route: IVP; Site: right forearm; [facility] 12:47 Follow up: Response: No adverse reaction [facility] Medication: 14:01 VIS not applicable for this client. [facility] Outcome: 11:56 Decision to Hospitalize by Provider. [facility] 13:53 Admitted to Med/surg accompanied by tech, via wheelchair, room 214, Report called to [facility] Nurse Danya 13:53 Condition: stable [facility] 13:53 Instructed on the need for admit. 14:20 Patient left the ED. mb9 Signatures: Dispatcher [employer] EDTX Isaac Mcgee MD MD cha Hall, Patricia, RN RN Dhara Elizondo, RN RN mb9 Carmen Hernandez RN RN nj1 Jalyn Noble
--- NOTE | 2023-06-25 11:57 | EDPHYS ---
Physician Documentation [facility] Name: Carlita Villalobos Age: 82 yrs Sex: Female : 1940 Arrival Date: 06/25/2023 Time: 10:03 Bed 18 Private MD: SILVIA Physician Isaac Mcgee HPI: 06/25 10:15 This 82 yrs old Female presents to ER via Unassigned with complaints of mitchell Abnormal Lab Results - Sent by Dr. Abrams and Jennifer. 10:15 The patient presents with abdominal pain in the upper abdomen. Onset: The mitchell symptoms/episode began/occurred 3 day(s) ago. weak, worsening renal function. sent in for low potassium. Onset: The symptoms/episode began/occurred 3 day(s) ago. The symptoms do not radiate. Associated signs and symptoms: Pertinent positives: nausea. The symptoms are described as crampy. Modifying factors: The symptoms are alleviated by nothing, the symptoms are aggravated by nothing. Severity of pain: At its worst the pain was mild in the emergency department the pain is unchanged. Severity of symptoms: At their worst the symptoms were moderate in the emergency department the symptoms are unchanged. The patient has experienced similar episodes in the past, a few times. Historical: - Allergies: 10:21 Sulfa (Sulfonamide Antibiotics); ph - PMHx: 10:21 Diabetes - IDDM; Hypertension; Hypothyroidism; ph - PSHx: 10:21 back surgery; cardiac stents; colonscopy; hysterectomy; Tonsillectomy; ph - Immunization history:: Adult Immunizations unknown. - Social history:: Smoking status: Patient denies any tobacco usage or history of. - Family history:: not pertinent. ROS: 10:15 Constitutional: Negative for fever, chills, and weight loss, Eyes: Negative for injury, mitchell pain, redness, and discharge, ENT: Negative for injury, pain, and discharge, Neck: Negative for injury, pain, and swelling, Cardiovascular: Negative for chest pain, palpitations, and edema, Respiratory: Negative for shortness of breath, cough, wheezing, and pleuritic chest pain, Back: Negative for injury and pain, : Negative for injury, bleeding, discharge, and swelling, MS/Extremity: Negative for injury and deformity, Skin: Negative for injury, rash, and discoloration, Psych: Negative for depression, anxiety, suicide ideation, homicidal ideation, and hallucinations, Allergy/Immunology: Negative for hives, rash, and allergies, Endocrine: Negative for neck swelling, polydipsia, polyuria, polyphagia, and marked weight changes, Hematologic/Lymphatic: Negative for swollen nodes, abnormal bleeding, and unusual bruising. 10:15 Abdomen/GI: Positive for abdominal pain, of the right upper quadrant, left upper quadrant, right lower quadrant and left lower quadrant. 10:15 Neuro: Positive for weakness. Exam: 10:15 Constitutional: This is a well developed, well nourished patient who is awake, alert, mitchell and in no acute distress. Head/Face: Normocephalic, atraumatic. Eyes: Pupils equal round and reactive to light, extra-ocular motions intact. Lids and lashes normal. Conjunctiva and sclera are non-icteric and not injected. Cornea within normal limits. Periorbital areas with no swelling, redness, or edema. ENT: Nares patent. No nasal discharge, no septal abnormalities noted. Tympanic membranes are normal and external auditory canals are clear. Oropharynx with no redness, swelling, or masses, exudates, or evidence of obstruction, uvula midline. Mucous membranes moist. Neck: Trachea midline, no thyromegaly or masses palpated, and no cervical lymphadenopathy. Supple, full range of motion without nuchal rigidity, or vertebral point tenderness. No Meningismus. Chest/axilla: Normal chest wall appearance and motion. Nontender with no deformity. No lesions are appreciated. Cardiovascular: Regular rate and rhythm with a normal S1 and S2. No gallops, murmurs, or rubs. Normal PMI, no JVD. No pulse deficits. Respiratory: Lungs have equal breath sounds bilaterally, clear to auscultation and percussion. No rales, rhonchi or wheezes noted. No increased work of breathing, no retractions or nasal flaring. Abdomen/GI: Soft, non-tender, with normal bowel sounds. No distension or tympany. No guarding or rebound. No evidence of tenderness throughout. Back: No spinal tenderness. No costovertebral tenderness. Full range of motion. Skin: Warm, dry with normal turgor. Normal color with no rashes, no lesions, and no evidence of cellulitis. Neuro: Awake and alert, GCS 15, oriented to person, place, time, and situation. Cranial nerves II-XII grossly intact. Motor strength 5/5 in all extremities. Sensory grossly intact. Cerebellar exam normal. Normal gait. Psych: Awake, alert, with orientation to person, place and time. Behavior, mood, and affect are within normal limits. 10:15 Musculoskeletal/extremity: ROM: no acute changes, intact in all extremities, Circulation is intact in all extremities. Sensation intact. Compartment Syndrome exam of affected extremity: is normal. Weight bearing: able to fully bear weight, Tendon exam: specific tendon testing normal through active and passive range of motion DVT Exam: no pain, no tenderness, negative Homans' sign noted on exam, no appreciated bluish discoloration, no erythema, no increased warmth, swelling, that is moderate, of the right leg and left leg. 12:08 ECG was reviewed by the Attending Physician. [facility] Vital Signs: 10:19 BP 214 / 80; Pulse 48; Resp 18; Temp 97.2; Pulse Ox 98% on R/A; Weight 60.33 kg; Height ph 5 ft. 4 in. ; 11:03 BP 184 / 90; Pulse 44; Resp 16; Pulse Ox 100% on R/A; nj1 12:15 BP 176 / 67; Pulse 43; Resp 14; Pulse Ox 100% on R/A; nj1 14:02 BP 169 / 68; Pulse 45; Resp 12; Pulse Ox 100% ; nj1 10:19 Body Mass Index 22.83 (60.33 kg, 162.56 cm) ph MDM: 10:06 Patient medically screened. [facility] 10:22 Differential Diagnosis altered mental status, sepsis. Differential diagnosis: [facility] diverticulitis, gastritis, non-specific abd pain, pancreatitis, Peptic Ulcer Disease, Pyelonephritis, urinary tract infection. Data reviewed: vital signs, nurses notes, lab test result(s), EKG, radiologic studies, CT scan, plain films. Consideration of Admission/Observation Escalation of care including admission/observation considered. Management of patient was discussed with the following: Interface Designer: dr kline. Primary Care Provider: dr abrams. I considered the following discharge prescriptions or medication management in the emergency department Medications were administered in the Emergency Department. See MAR. Test considered but Not performed: Ultrasound bilateral renal usg. 06/25 10:14 Order name: Basic Metabolic Panel; Complete Time: 11:34 [facility] 06/25 10:14 Order name: CBC with Diff; Complete Time: 12:24 [facility] 06/25 10:14 Order name: LFT's; Complete Time: 11:34 [facility] 06/25 10:14 Order name: Magnesium; Complete Time: 11:34 [facility] 06/25 10:14 Order name: NT PRO-BNP; Complete Time: 11:34 [facility] 06/25 10:14 Order name: PT-INR; Complete Time: 11:09 [facility] 06/25 10:14 Order name: Troponin HS; Complete Time: 11:34 [facility] 06/25 10:14 Order name: Phosphorus; Complete Time: 11:34 [facility] 06/25 10:14 Order name: Urinalysis w/ reflexes; Complete Time: 12:37 [facility] 06/25 10:14 Order name: Lipase; Complete Time: 11:34 [facility] 06/25 11:02 Order name: Manual Differential; Complete Time: 12:24 EDND 06/25 10:14 Order name: XRAY Chest (1 view); Complete Time: 11:34 [facility] 06/25 10:14 Order name: CT Stone Protocol; Complete Time: 11:09 [facility] 06/25 10:14 Order name: EKG; Complete Time: 10:15 [facility] 06/25 12:20 Order name: CONS Physician Consult EDND 06/25 12:20 Order name: CONS Physician Consult EDND 06/25 10:14 Order name: Cardiac monitoring; Complete Time: 10:27 [facility] 06/25 10:14 Order name: EKG - Nurse/Tech; Complete Time: 11:32 [facility] 06/25 10:14 Order name: IV Saline Lock; Complete Time: 10:55 [facility] 06/25 10:14 Order name: Labs collected and sent; Complete Time: 10:55 [facility] 06/25 10:14 Order name: O2 Per Protocol; Complete Time: 10:27 [facility] 06/25 10:14 Order name: O2 Sat Monitoring; Complete Time: 10:27 [facility] 06/25 10:14 Order name: IV Saline Lock - Large Bore; Complete Time: 10:55 [facility] 06/25 10:14 Order name: PO challenge: juice; Complete Time: 10:55 [facility] EC:08 Rate is 43 beats/min. Rhythm is regular. QRS [place] is Normal. [place] interval is normal. QRS mitchell interval is normal. QT interval is normal. No Q waves. T waves are Normal. No ST changes noted. Clinical impression: Sinus bradycardia and No evidence of ischemia. Interpreted by me. Reviewed by me. Administered Medications: 12:15 Drug: Furosemide IVP 40 mg Route: IVP; Site: right forearm; nj1 12:47 Follow up: Response: No adverse reaction nj1 Disposition Summary: 06/25/23 11:56 Hospitalization Ordered Hospitalization Status: Observation mitchell Provider: Kapil Abrams cha Location: Telemetry/MedSurg (observation) mitchell Condition: Fair mitchell Problem: new mitchell Symptoms: have improved mitchell Bed/Room Type: Standard mitchell Room Assignment: 214(06/25/23 13:30) bd Diagnosis - Weakness mitchell - Bradycardia, unspecified mitchell - Unspecified kidney failure mitchell - Type 1 diabetes mellitus with hyperglycemia mitchell - Unspecified combined systolic (congestive) and diastolic (congestive) heart failure mitchell Forms: - Medication Reconciliation Form mitchell - SBAR form mitchell - Leadership Thank You Letter mitchell Signatures: Dispatcher [employer] EDMS Opal Watson Corey, MD MD cha Hall, Patricia, RN RN Carmen Hernandez RN RN nj1 Corrections: (The following items were deleted from the chart) 13:30 11:56 mitchell bd
[2023-06-25] MEDS ORDERED: FUROSEMIDE 40 MG/4 ML VIAL ONE (12:22)
[2023-06-25 12:36] LABS: Specific Gravity 1.009 (1.005-1.030); Urine Bacteria <20 /HPF (<20); Urine Bilirubin NEGATIVE (Negative); Urine Blood Trace (Negative); Urine Clarity Turbid (Clear); Urine Color Colorless (Yellow); Urine Glucose NEGATIVE (Negative); Urine Protein 2+ (Negative); Urine RBC <5 /HPF (None Seen); Urine Urobilinogen Normal (Normal); Urine pH 5.5 (5.0-7.0)
[2023-06-25 14:28] VITALS: BMI 22.8
[2023-06-25] MEDS ORDERED: ONDANSETRON 4 MG/2 ML VIAL IV PRN (14:29)
[2023-06-25] MEDS ORDERED: IPRATROPIUM BROM 0.5MG/2.5ML NEB PRN (14:29)
[2023-06-25] MEDS ORDERED: ALBUTEROL 2.5 MG/3 ML NEB SOL NEB PRN (14:29)
[2023-06-25] MEDS ORDERED: ACETAMINOPHEN 325 MG TABLET PO PRN (14:31)
[2023-06-25] MEDS ORDERED: GLUCAGON 1 MG/VIAL IM PRN (15:02)
[2023-06-25] MEDS ORDERED: D50W 25 GM/50 ML SYRINGE IV PRN (15:02)
[2023-06-25] MEDS ORDERED: HYDRALAZINE HCL 20 MG/ML VIAL IV PRN (15:02)
[2023-06-25] MEDS: HYDRALAZINE HCL 25 MG TABLET PO SCH ×2 (15:11→20:53)
--- NOTE | 2023-06-25 15:13 | P.HP ---
Certification for Inpatient Patient admitted to: Inpatient With expected LOS: >2 Midnights Practitioner: I am a practitioner with admitting privileges, knowledge of patient current condition, hospital course, and medical plan of care. Services: Services provided to patient in accordance with Admission requirements found in Title 42 Section 412.3 of the Code of Federal Regulations Patient History Date of Service: 06/25/23 Primary Care Provider: Gareth Reason for admission: acute on chronic renal failure History of Present Illness: Patient was recently admitted for uti and acute on chronic renal failure. Her baseline seemed to have worsened. She was discharged. Followed up with me on Sunday last week. Labs were drawn. The results came back this Morning. She has a potassium of 6.3 and creatine had worsened to 3.8. The patient was directed to the ER. She was found to be swollen. Creatine was normal at 4.2. However creatine was still elevated at 3.6. Considering she had pedal edema, htn and bradycardia, decided it would be safest to admit the patient. Allergies Sulfa (Sulfonamide Antibiotics) Allergy (Intermediate, Verified 12/14/21 23:25) Nausea/Vomiting/flu like symptoms Home Medications: Aspirin [Aspirin EC 81 MG] 81 mg PO DAILY 12/14/21 Cholecalciferol (Vitamin D3) [Vitamin D 1000 Iu Tab] 1,000 unit PO DAILY 12/14/21 Clopidogrel Bisulfate [Plavix] 75 mg PO DAILY 12/14/21 Levothyroxine [Synthroid] 75 mcg PO [id number] 12/14/21 Memantine HCl 5 mg PO DAILY 12/14/21 Metoprolol Tartrate 25 mg PO BID 12/14/21 Montelukast [Singulair] 10 mg PO DAILY 12/14/21 Telmisartan 40 mg PO DAILY 12/14/21 Fluticasone/Salmeterol [Advair Hfa 45-21 Mcg Inhaler] 1 puff IH BID 12/17/21 Albuterol Sulfate [Albuterol Sulfate Hfa] 1 puff IH Q6H PRN 03/28/23 Insulin Degludec [Tresiba Flextouch U-100] 32 unit SQ DAILY 03/28/23 Mecobalamin [B12 Active] 1 tab PO DAILY 03/28/23 Amiodarone HCl [Cordarone*] 200 mg PO BID 30 Days #60 tab 03/29/23 Furosemide [Lasix*] 20 mg PO DAILY 06/10/23 Hydralazine [Apresoline*] 10 mg PO TID PRN 06/10/23 Furosemide [Lasix] 20 mg PO DAILY 90 Days #90 tab 06/14/23 Iron,Carbonyl [Ferretts] 18 mg PO DAILY 90 Days #90 tab.chew 06/14/23 - Past Medical/Surgical History Has patient received pneumonia vaccine in the past: Yes Diabetic: Yes -: Diabetes mellitus type 2 insulin-dependent -: Hypothyroidism -: Atrial fibrillation not on chronic anti coagulation therapy -: COPD -: HTN -: History of MAC pulmonary infection -: CHF -: Anemia -: Frequent UTI's -: Back surgery x2 -: Hysterectomy -: Bladder suspension -: 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 - Family History Father -: Heart disease, Diabetes Notes: Sister -: Diabetes Mother -: Diabetes Brother -: Diabetes - Social History Smoking Status: Never smoker Alcohol use: Yes CD- Drugs: No Caffeine use: Yes Place of Residence: Home Review of Systems 10-point ROS is otherwise unremarkable General: Weakness Cardiovascular: Edema Physical Examination - Vital Signs Temperature: 97.2 F Blood Pressure: 169/68 Pulse: 45 Respirations: 12 - Physical Exam General: Alert, In no apparent distress HEENT: Atraumatic, PERRLA, Mucous membr. moist/pink, EOMI, Sclerae nonicteric Neck: Supple, 2+ carotid pulse no bruit, No LAD, Without JVD or thyroid abnormality Respiratory: Clear to auscultation bilaterally, Normal air movement Cardiovascular: Regular rate/rhythm, Normal S1 S2, Edema (2+ pedal edema ) Gastrointestinal: Normal bowel sounds, No tenderness Musculoskeletal: No tenderness Integumentary: No rashes Neurological: Normal gait, Normal speech, Normal strength at 5/5 x4 extr, Normal tone, Normal affect Lymphatics: No axilla or inguinal lymphadenopathy - Studies Laboratory Data (last 24 hrs) 06/25/23 06/25/23 06/25/23 10:40 10:40 10:40 WBC 6.20 Hgb 10.2 L Hct 32.9 L Plt Count 227 PT 11.5 INR 1.05 Sodium 137 Potassium 4.2 BUN 84 H Creatinine 3.69 H Glucose 79 Phosphorus 5.2 H Magnesium 2.1 Total Bilirubin 0.3 AST 25 ALT 39 Alkaline Phosphatase 206 H Lipase 115 H Assessment and Plan - Problems (Diagnosis) (1) Acute on chronic renal failure Current Visit: No Status: Acute Plan: will admit. She is not hypokalemic. Will most likely need some diuresis. Consult to Dr. Edwards. Will have him manage the diuresis. Will monitor the creatine Qualifiers: Acute renal failure type: unspecified Chronic kidney disease stage: stage 5, not on chronic dialysis Qualified Code(s): N17.9 - Acute kidney failure, unspecified; N18.5 - Chronic kidney disease, stage 5 (2) Atrial fibrillation Onset Date: 11/15/15 Current Visit: No Status: Chronic Qualifiers: Atrial fibrillation type: persistent (not longstanding) Qualified Code(s): I48.19 - Other persistent atrial fibrillation; I48.1 - Persistent atrial fibrillation (3) DM2 (diabetes mellitus, type 2) Current Visit: No Status: Chronic Plan: hold insulin for now. Continue low dose sliding scale Qualifiers: Diabetes mellitus chcf insulin use: with chcf use Diabetes mellitus complication status: with kidney complications Diabetes mellitus complication detail: with chronic kidney disease Chronic kidney disease stage: stage 5, not on chronic dialysis Qualified Code(s): E11.22 - Type 2 diabetes mellitus with diabetic chronic kidney disease; N18.5 - Chronic kidney disease, stage 5; Z79.4 - shelter (current) use of insulin (4) Hypothyroidism associated with surgical procedure Onset Date: 11/15/15 Current Visit: No Status: Chronic Discharge Plan: Home Plan to discharge in: 48 Hours - Advance Directives Does patient have a Living Will: Yes Does patient have a Durable POA for Healthcare: Yes - Code Status/Comfort Care Code Status Assessed: Yes Code Status: Full Code Physician Review: Patient Assessed, Agree with Above Assessment and Plan Critical Care: No Time Spent Managing Pts Care (In Minutes): 75
[2023-06-25] MEDS: INSULIN -REGULAR HUMAN 50 UNIT/0.5 ML ML SQ SCH ×2 (16:13→20:53)
[2023-06-25] MEDS ORDERED: FUROSEMIDE 40 MG/4 ML VIAL IV SCH (17:00)
--- NOTE | 2023-06-25 18:26 | P.CNS ---
Date of Consult: 06/25/23 Reason for Consult: LEE ANN/ CKD Requesting Physician: Kapil Servin Primary Care Provider: Gareth Chief Complaint: acute on chronic renal failure History of Present Illness: Patient was recently admitted for uti and acute on chronic renal failure. Her baseline seemed to have worsened. She was discharged. Followed up with me on Sunday last week. Labs were drawn. The results came back this Morning. She has a potassium of 6.3 and creatine had worsened to 3.8. The patient was directed to the ER. She was found to be swollen. Creatine was normal at 4.2. However creatine was still elevated at 3.6. Considering she had pedal edema, htn and bradycardia, decided it would be safest to admit the patient. 10:15 This 82 yrs old Female presents to ER via Unassigned with complaints of mitchell Abnormal Lab Results - Sent by Dr. Servin and Jennifer. 10:15 The patient presents with abdominal pain in the upper abdomen. Onset: The mitchell symptoms/episode began/occurred 3 day(s) ago. weak, worsening renal function. sent in for low potassium. Onset: The symptoms/episode began/occurred 3 day(s) ago. The symptoms do not radiate. Associated signs and symptoms: Pertinent positives: nausea. The symptoms are described as crampy. Modifying factors: The symptoms are alleviated by nothing, the symptoms are aggravated by nothing. Severity of pain: At its worst the pain was mild in the emergency department the pain is unchanged. Severity of symptoms: At their worst the symptoms were moderate in the emergency department the symptoms are unchanged. The patient has experienced similar episodes in the past, a few times. Allergies Sulfa (Sulfonamide Antibiotics) Allergy (Intermediate, Verified 12/14/21 23:25) Nausea/Vomiting/flu like symptoms Home medications list reviewed: Yes Home Medications: Aspirin [Aspirin EC 81 MG] 81 mg PO DAILY 12/14/21 Cholecalciferol (Vitamin D3) [Vitamin D 1000 Iu Tab] 1,000 unit PO DAILY 12/14/21 Clopidogrel Bisulfate [Plavix] 75 mg PO DAILY 12/14/21 Memantine HCl 5 mg PO DAILY 12/14/21 Metoprolol Tartrate 25 mg PO BID 12/14/21 Montelukast [Singulair] 10 mg PO DAILY 12/14/21 Fluticasone/Salmeterol [Advair Hfa 45-21 Mcg Inhaler] 1 puff IH BID 12/17/21 Albuterol Sulfate [Albuterol Sulfate Hfa] 1 puff IH Q6H PRN 03/28/23 Insulin Degludec [Tresiba Flextouch U-100] 32 unit SQ DAILY 03/28/23 Mecobalamin [B12 Active] 1,000 mcg PO DAILY 03/28/23 Amiodarone HCl [Cordarone*] 200 mg PO BID 30 Days #60 tab 03/29/23 Furosemide [Lasix] 20 mg PO DAILY 90 Days #90 tab 06/14/23 Hydralazine [Apresoline*] 10 mg PO DAILY 06/25/23 Levothyroxine Sodium 75 mcg PO DAILY 06/25/23 Pioglitazone [Actos*] 15 mg PO DAILY 06/25/23 - Past Medical/Surgical History Diabetic: Yes -: Diabetes mellitus type 2 insulin-dependent -: Hypothyroidism -: Atrial fibrillation not on chronic anti coagulation therapy -: COPD -: HTN -: History of MAC pulmonary infection -: CHF -: Anemia -: Frequent UTI's -: CKD IV (Dr. 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 - Family History Father Medical History: Heart disease, Diabetes Notes: Sister Medical History: Diabetes Mother Medical History: Diabetes Brother Medical History: Diabetes - Social History Smoking Status: Former smoker Alcohol use: Yes CD- Drugs: No Caffeine use: Yes Place of Residence: Home Review of Systems 10-point ROS is otherwise unremarkable General: Weakness Respiratory: SOB with Excertion Cardiovascular: Edema Physical Examination Temp Pulse Resp BP Pulse Ox 97.1 F 47 L 16 158/64 H 99 06/25/23 16:00 06/25/23 16:00 06/25/23 16:00 06/25/23 16:00 06/25/23 16:00 General: Oriented x3, Cooperative HEENT: Atraumatic Neck: Supple Respiratory: Crackles/rales Cardiovascular: Normal S1 S2, Edema Gastrointestinal: Soft and benign, Non-distended Musculoskeletal: No clubbing, No contractures Integumentary: No rashes, No cyanosis Neurological: Normal speech Laboratory Data (last 24 hrs) 06/25/23 06/25/23 06/25/23 10:40 10:40 10:40 WBC 6.20 Hgb 10.2 L Hct 32.9 L Plt Count 227 PT 11.5 INR 1.05 Sodium 137 Potassium 4.2 BUN 84 H Creatinine 3.69 H Glucose 79 Phosphorus 5.2 H Magnesium 2.1 Total Bilirubin 0.3 AST 25 ALT 39 Alkaline Phosphatase 206 H Lipase 115 H Imagings Data: EXAM DESCRIPTION: RADChest Single View06/25/2023 10:46 am CLINICAL HISTORY: COUGH COMPARISON: Chest Single View dated 03/28/2023; Chest Pa And Lat (2 Views) dated 10/17/2022; Chest Single View dated 12/18/2021; Chest Single View dated 12/14/2021 TECHNIQUE: Portable AP view of the chest. FINDINGS: The lungs show minimal bibasilar opacities favored to represent atelectasis. Streaky central opacification. No pneumothorax or effusion. The cardiomediastinal contours are unchanged, with suggested calcified right hilar lymph nodes, stable. IMPRESSION: Streaky central opacities which may relate to atelectasis or reactive airway changes. No findings to suggest focal pneumonia. EXAM DESCRIPTION: CT - Stone Protocol - 06/25/2023 10:29 am CLINICAL HISTORY: Abd pain;Abdominal distention COMPARISON: Abdomen Pelvis Wo Contrast dated 06/09/2023; Abdomen Pelvis W/Wo Contrast dated 08/05/2020 TECHNIQUE: CT imaging of the abdomen and pelvis was performed without IV contrast. Multiplanar reformats were generated and reviewed. All CT scans are performed using dose optimization technique as appropriate and may include automated exposure control or mA/KV adjustment according to patient size. FINDINGS: Stable small to moderate right and small left pleural effusions. Diffuse body wall edema, progressive since the prior exam. . The liver and spleen show no focal suspicious findings. Scattered punctate calcifications throughout liver and spleen are stable and suggest remote granulomatous infection. Pancreas and adrenal glands are unremarkable. Gallbladder and biliary tree are also without suspicious finding, with spurious excretion of contrast in the gallbladder. . No hydronephrosis or suspicious renal mass. No significant adrenal finding. Isodense masses and pyelonephritis cannot be excluded in the absence of IV contrast. No dilated bowel loops or bowel wall thickening. Stable mild free pelvic a situs. Mildly progressive edema/fat stranding along the mesenteric root. No free air or inflammatory stranding. No hernia, mass or bulky lymphadenopathy. The urinary bladder is without significant finding. No suspicious bony findings. IMPRESSION: Stable free pelvic bursitis. Progressive edema/fat stranding along the mesenteric root, which is nonspecific, favored to relate to relate to fluid overload, although other nonspecific inflammatory processes in the abdomen, such as enteritis could result in a similar picture. Please correlate with patient's fluid status. Diffuse body wall edema progressive since the prior exam, also suggestive of fluid overload. Other stable findings as above, including bilateral pleural effusions. [facility] LEFT VENTRICULAR WALL MOTION: NORMAL DOPPLER/COLOR FLOW: SEE BELOW. COMMENTS: NORMAL LEFT VENTRICULAR EJECTION FRACTION 55-60% WITH NORMAL WALL MOTION. MODERATE DIASTOLIC DYSFUNCTION. MODERATE PULMONARY HYPERTENSION WITH RIGHT VENTRICULAR SYSTOLIC PRESSURE OF 45-50 mmHg. MILD MITRAL, TRICUSPID AND AORTIC REGURGITATION. Conclusions/Impression: Stage I LEE ANN may be CRS CKD IV with Proteinuria -No NSAIDs NAG Metabolic Acidosis -Continue furosemide HTN with CKD/ CHF -Continue Amlodipine & Hydralazine Diastolic CHF, A/C -Furosemide 80mg X1 DM II with CKD -RISS Anemia in chronic illness -Monitor H&H Case reviewed with Dr. Servin Thank you kindly for the consultation
[2023-06-25] MEDS ORDERED: FUROSEMIDE 40 MG/4 ML VIAL IV ONE (18:55)
--- NOTE | 2023-06-25 19:45 | CON ---
Date of Consultation: 06/25/2023 Reason For Consultation: CHF. History Of Present Illness: This is an 82-year-old female with past medical history of diabetes, atr ial fibrillation, COPD, CHF, coronary artery disease, hypertension, presented to the hospital with wo rsening lower extremity edema. Apparently, recently she was in the hospital and received some IV flu ids, and she was discharged, and now she gained about 13 pounds and she has lower extremity edema, mi ldly short of breath. Past Medical History: As outlined above in the HPI. Medications: Refer to reconciliation sheet for detailed list. Allergies: SULFA. Family History: No premature coronary artery disease or cancer. Social History: She does not smoke or drink. Does not use any drugs. Review of Systems: All systems reviewed and they were negative except what mentioned in HPI. Physical Examination: Vital Signs: Reviewed. Head and Neck: Pupils are equal, reactive to light. Intact eye movements. No cervical lymphadenopa thy. Neck is supple. Thyroid is not enlarged. Lungs: She has faint crackles in the bases. No accessory muscle use or muscle retraction. Heart: Irregular. No extra sounds. Abdomen: Soft, nontender. Bowel sounds positive. No organomegaly. No masses or hernia. No rigidi ty or rebound. Extremities: Edema 1 to 2+ bilaterally. No clubbing or cyanosis. Intact pulses. Skin: No rash. Neurologic: Alert, awake, oriented x3. No acute focal deficits appreciated. Investigations: BUN 84, creatinine is 3.69 which is above her baseline. Her troponins are negative. Assessment And Recommendations: 1.Fluid overload. This is likely due to renal failure; however, I will obtain an echocardiogram lane orr to further evaluate and also the echo will give us an idea about her filling pressures, but I r ecommend diuresis. Discussed further with Nephrology prior to implementing aggressive diuretics. Th e patient has advanced chronic kidney disease and she might require dialysis in the near future. 2.Atrial fibrillation, rate controlled. She has no dizziness. Continue current management. 3.Hypertension. Some home medications adjusted for better blood pressure control. Thank you for the consult. SR/MODL Voice ID: [id number] Report ID: [id number]
[2023-06-26 05:04] LABS: Hematocrit 28.3 % (36.0-45.0); MCV 84.5 fL (80-100); MPV 9.3 fL (7.6-11.3); Platelets 190 thou/uL (152-406); RBC Red Blood Cell Count 3.35 M/uL (3.86-4.86)
[2023-06-26] MEDS: LEVOTHYROXINE SOD 0.075 MG TAB PO SCH (05:33)
[2023-06-26 05:48] LABS: Potassium 4.2 mEq/L (3.5-5.1); Uric Acid 11.8 mg/dL (2.6-6.0)
[2023-06-26] MEDS ORDERED: PANTOPRAZOLE 40MG TABLET PO SCH (06:30)
--- NOTE | 2023-06-26 07:22 | RAD REPORT ---
EXAM DESCRIPTION: Rl Single View06/26/2023 5:10 am CLINICAL HISTORY: Chest pain COMPARISON: June 25, 2023 FINDINGS: Mild prominence interstitial lung pattern bilaterally Heart is normal size. Lungs are mildly to moderately hyperaerated IMPRESSION: Mild prominence of the interstitial lung pattern bilaterally may indicate pneumonitis or viral pneumonia
[2023-06-26] MEDS: INSULIN -REGULAR HUMAN 50 UNIT/0.5 ML ML SQ SCH ×4 (07:30→21:53)
[2023-06-26 08:18] LABS: Anisocytosis 2+; Blood Morphology Comment NOT SEEN (NOT SEEN); Platelet Estimate ADEQ; Platelets, Giant FEW
[2023-06-26] MEDS: ASPIRIN EC 81 MG TAB PO SCH (08:34)
[2023-06-26] MEDS: AMIODARONE HCL 200 MG TAB PO SCH (08:34)
[2023-06-26] MEDS: HYDRALAZINE HCL 25 MG TABLET PO SCH ×3 (08:34→21:46)
[2023-06-26] MEDS: CLOPIDOGREL 75 MG TABLET PO SCH (08:35)
[2023-06-26] MEDS: HOME MED 1 EA UNK (Memantine Hcl [Memantine Hcl] 5 MG Tablet) PO SCH (08:35)
[2023-06-26] MEDS: HOME MED 1 EA UNK (Mecobalamin [B12 Active] 1,000 MCG Tab.Chew) PO SCH (08:35)
--- NOTE | 2023-06-26 08:35 | P.PN ---
Subjective Date of Service: 06/26/23 Primary Care Provider: Gareth Chief Complaint: acute on chronic renal failure Subjective: Improving (diuresised 1300 ml approx) Review of Systems 10-point ROS is otherwise unremarkable Cardiovascular: Edema Physical Examination - Vital Signs Temperature: 96.9 F Blood Pressure: 134/56 Pulse: 50 Respirations: 16 Pulse Ox (%): 98 - Physical Exam General: Alert, In no apparent distress HEENT: Atraumatic, PERRLA, EOMI Neck: Supple, JVD not distended Respiratory: Clear to auscultation bilaterally, Normal air movement Cardiovascular: Regular rate/rhythm, Normal S1 S2, Edema (1+) Gastrointestinal: Normal bowel sounds, No tenderness Musculoskeletal: No tenderness Integumentary: No rashes Neurological: Normal speech, Normal tone, Normal affect Lymphatics: No axilla or inguinal lymphadenopathy - Studies Laboratory Data (last 24 hrs) 06/25/23 06/25/23 06/25/23 10:40 10:40 10:40 WBC 6.20 Hgb 10.2 L Hct 32.9 L Plt Count 227 PT 11.5 INR 1.05 Sodium 137 Potassium 4.2 BUN 84 H Creatinine 3.69 H Glucose 79 Phosphorus 5.2 H Magnesium 2.1 Total Bilirubin 0.3 AST 25 ALT 39 Alkaline Phosphatase 206 H Lipase 115 H Assessment And Plan - Current Problems (Diagnosis) (1) Acute on chronic renal failure Current Visit: No Status: Acute Plan: will admit. She is not hypokalemic. Will most likely need some diuresis. Consult to Dr. Edwards. Will have him manage the diuresis. Will monitor the creatine 06/26 creatine pending. Plan to monitor her for a few days. Hopefully her creatine and potassium stabalizes. Qualifiers: Acute renal failure type: unspecified Chronic kidney disease stage: stage 5, not on chronic dialysis Qualified Code(s): N17.9 - Acute kidney failure, unspecified; N18.5 - Chronic kidney disease, stage 5 (2) Atrial fibrillation Onset Date: 11/15/15 Current Visit: No Status: Chronic Plan: Have held her metoporol. will discuss with Dr. Kruse about her dosage of amiodarone Qualifiers: Atrial fibrillation type: persistent (not longstanding) Qualified Code(s): I48.19 - Other persistent atrial fibrillation; I48.1 - Persistent atrial fibrillation (3) DM2 (diabetes mellitus, type 2) Current Visit: No Status: Chronic Plan: hold insulin for now. Continue low dose sliding scale Qualifiers: Diabetes mellitus information assoc insulin use: with half-way use Diabetes mellitus complication status: with kidney complications Diabetes mellitus complication detail: with chronic kidney disease Chronic kidney disease stage: stage 5, not on chronic dialysis Qualified Code(s): E11.22 - Type 2 diabetes mellitus with diabetic chronic kidney disease; N18.5 - Chronic kidney disease, stage 5; Z79.4 - cardiology rn (current) use of insulin (4) Hypothyroidism associated with surgical procedure Onset Date: 11/15/15 Current Visit: No Status: Chronic Discharge Plan: Home Plan to discharge in: 48 Hours - Code Status/Comfort Care Code Status Assessed: No Physician Review: Patient Assessed, Agree with Above Assessment and Plan Critical Care: No Time Spent Managing PTS Care (In Minutes): 20
[2023-06-26] MEDS ORDERED: AMLODIPINE 5 MG TAB PO SCH (09:00)
--- NOTE | 2023-06-26 17:05 | EKG ---
Test Date: 2023-06-25 Test Time: 11:22:29 [employer]: EVERARDO MEASUREMENT RESULTS: Intervals: Rate: 43 UT: QRSD: 86 QT: 512 QTc: 432 [place]: P: UT: QRS: 58 T: 120 INTERPRETIVE STATEMENTS: Junctional bradycardia Low voltage QRS Septal infarct, age undetermined Abnormal ECG Compared to ECG 06/09/2023 16:26:45 Low QRS voltage now present Myocardial infarct finding now present Sinus bradycardia no longer present Sinus arrhythmia no longer present Electronically Signed On 06-26-23 17:03:23 CDT by Jose C Kruse
--- NOTE | 2023-06-26 20:00 | P.PN ---
Date of Service: 06/26/23 Vital Signs Temp Pulse Resp BP Pulse Ox 97.7 F 52 16 116/57 L 95 06/26/23 16:00 06/26/23 16:00 06/26/23 16:00 06/26/23 16:00 06/26/23 16:00 Medications Acetaminophen (Acetaminophen 325 Mg Tablet) 650 mg PO Q6H PRN PRN Reason: TEMP > 100' F Albuterol Sulfate (Albuterol 2.5 Mg/3 Ml Neb Argelia) 2.5 mg NEB [id number] PRN PRN Reason: WHEEZING Amiodarone HCl (Amiodarone Hcl 200 Mg Tab) 100 mg PO DAILY [facility] Last Admin: 06/26/23 08:34 Dose: 100 mg Amlodipine Besylate (Amlodipine 5 Mg Tab) 5 mg PO DAILY [facility] Last Admin: 06/26/23 08:35 Dose: 5 mg Aspirin (Aspirin Ec 81 Mg Tab) 81 mg PO DAILY [facility] Last Admin: 06/26/23 08:34 Dose: 81 mg Clopidogrel Bisulfate (Clopidogrel 75 Mg Tablet) 75 mg PO DAILY [facility] Last Admin: 06/26/23 08:35 Dose: 75 mg Glucagon (Glucagon 1 Mg/Vial) 1 mg IM 1X PRN; Protocol PRN Reason: HYPOGLYCEMIA Home Med (Mecobalamin [B12 Active]) 1 tab PO DAILY [facility] Last Admin: 06/26/23 08:35 Dose: Not Given Home Med (Memantine Hcl [Memantine Hcl]) 5 mg PO DAILY [facility] Last Admin: 06/26/23 08:35 Dose: Not Given Hydralazine HCl (Hydralazine Hcl 25 Mg Tablet) 25 mg PO TID [facility] Last Admin: 06/26/23 13:25 Dose: 25 mg Hydralazine HCl (Hydralazine Hcl 20 Mg/Ml Vial) 10 mg IV Q6HP PRN PRN Reason: HIGHBP Last Admin: 06/26/23 00:47 Dose: 10 mg Insulin Human Regular (Insulin -Regular Human 50 Unit/0.5 Ml Ml) 0 unit SQ ACHS [facility]; Protocol Last Admin: 06/26/23 17:15 Dose: 2 unit Ipratropium [place] (Ipratropium Brom 0.5mg/2.5ml) 0.5 mg NEB [id number] PRN PRN Reason: WHEEZING Levothyroxine Sodium (Levothyroxine Sod 0.075 Mg Tab) 0.075 mg PO DAILYAC [facility] Last Admin: 06/26/23 05:33 Dose: 0.075 mg Ondansetron HCl (Ondansetron 4 Mg/2 Ml Vial) 4 mg IV Q6H PRN PRN Reason: NAUSEA / VOMITING Pantoprazole Sodium (Pantoprazole 40mg Tablet) 40 mg PO DAILYAC [facility]; Protocol Stop: 06/26/23 23:59 Last Admin: 06/26/23 05:33 Dose: 40 mg Sodium Chloride (Flush Normal Saline 10 Ml) 10 ml IV BID [facility] Last Admin: 06/26/23 08:35 Dose: 10 ml Assessment/ Plan: Nephrology No dyspnea No chest pain Poor sleep overnight due to nocturia No acute events overnight Vitals, medications, blood work and imaging reviewed in the chart. General: Oriented x3, Cooperative HEENT: Atraumatic Neck: Supple Respiratory: Crackles/rales Cardiovascular: Normal S1 S2, Edema Gastrointestinal: Soft and benign, Non-distended Musculoskeletal: No clubbing, No contractures Integumentary: No rashes, No cyanosis Neurological: Normal speech Laboratory Data (last 24 hrs) 06/25/23 06/25/23 06/25/23 10:40 10:40 10:40 WBC 6.20 Hgb 10.2 L Hct 32.9 L Plt Count 227 PT 11.5 INR 1.05 Sodium 137 Potassium 4.2 BUN 84 H Creatinine 3.69 H Glucose 79 Phosphorus 5.2 H Magnesium 2.1 Total Bilirubin 0.3 AST 25 ALT 39 Alkaline Phosphatase 206 H Lipase 115 H Imagings Data: EXAM DESCRIPTION: [facility] Single View06/25/2023 10:46 am CLINICAL HISTORY: COUGH COMPARISON: Chest Single View dated 03/28/2023; Chest Pa And Lat (2 Views) dated 10/17/2022; Chest Single View dated 12/18/2021; Chest Single View dated 12/14/2021 TECHNIQUE: Portable AP view of the chest. FINDINGS: The lungs show minimal bibasilar opacities favored to represent atelectasis. Streaky central opacification. No pneumothorax or effusion. The cardiomediastinal contours are unchanged, with suggested calcified right hilar lymph nodes, stable. IMPRESSION: Streaky central opacities which may relate to atelectasis or reactive airway changes. No findings to suggest focal pneumonia. EXAM DESCRIPTION: CT - Stone Protocol - 06/25/2023 10:29 am CLINICAL HISTORY: Abd pain;Abdominal distention COMPARISON: Abdomen Pelvis Wo Contrast dated 06/09/2023; Abdomen Pelvis W/Wo Contrast dated 08/05/2020 TECHNIQUE: CT imaging of the abdomen and pelvis was performed without IV contrast. Multiplanar reformats were generated and reviewed. All CT scans are performed using dose optimization technique as appropriate and may include automated exposure control or mA/KV adjustment according to patient size. FINDINGS: Stable small to moderate right and small left pleural effusions. Diffuse body wall edema, progressive since the prior exam. . The liver and spleen show no focal suspicious findings. Scattered punctate calcifications throughout liver and spleen are stable and suggest remote granulomatous infection. Pancreas and adrenal glands are unremarkable. Gallbladder and biliary tree are also without suspicious finding, with spurious excretion of contrast in the gallbladder. . No hydronephrosis or suspicious renal mass. No significant adrenal finding. Isodense masses and pyelonephritis cannot be excluded in the absence of IV contrast. No dilated bowel loops or bowel wall thickening. Stable mild free pelvic a situs. Mildly progressive edema/fat stranding along the mesenteric root. No free air or inflammatory stranding. No hernia, mass or bulky lymphadenopathy. The urinary bladder is without significant finding. No suspicious bony findings. IMPRESSION: Stable free pelvic bursitis. Progressive edema/fat stranding along the mesenteric root, which is nonspecific, favored to relate to relate to fluid overload, although other nonspecific inflammatory processes in the abdomen, such as enteritis could result in a similar picture. Please correlate with patient's fluid status. Diffuse body wall edema progressive since the prior exam, also suggestive of fluid overload. Other stable findings as above, including bilateral pleural effusions. [facility] LEFT VENTRICULAR WALL MOTION: NORMAL DOPPLER/COLOR FLOW: SEE BELOW. COMMENTS: NORMAL LEFT VENTRICULAR EJECTION FRACTION 55-60% WITH NORMAL WALL MOTION. MODERATE DIASTOLIC DYSFUNCTION. MODERATE PULMONARY HYPERTENSION WITH RIGHT VENTRICULAR SYSTOLIC PRESSURE OF 45-50 mmHg. MILD MITRAL, TRICUSPID AND AORTIC REGURGITATION. Conclusions/Impression: Stage I LEE ANN may be CRS CKD IV with Proteinuria -No NSAIDs NAG Metabolic Acidosis -Continue furosemide HTN with CKD/ CHF -Continue Amlodipine -Change Hydralazine BID Diastolic CHF, A/C -Start Furosemide 40mg BID DM II with CKD -RISS Anemia in chronic illness -Monitor H&H Case reviewed with Dr. Servin
[2023-06-26] MEDS ORDERED: EPOETIN ALFA-EPBX 10,000 UNIT/ML VIAL SQ ONE (20:01)
[2023-06-26] MEDS ORDERED: DRISDOL (VITAMIN D=ERGOCALCIFEROL) 50000 UNIT CAP PO SCH (21:00)
[2023-06-26] MEDS: DOCUSATE NA 100 MG CAP PO SCH (21:46)
[2023-06-27] MEDS: LEVOTHYROXINE SOD 0.075 MG TAB PO SCH (05:41)
--- NOTE | 2023-06-27 06:56 | ECHO ---
HEIGHT: 5 ft 4 in WEIGHT: 135 lb 4.8 oz DATE OF STUDY: 06/26/[address]: Isaac Mcgee MD 2-DIMENSIONAL: YES M.MODE: YES DOPPLER: YES COLOR FLOW: YES TDS: PORTABLE: YES DEFINITY: BUBBLE STUDY: DIAGNOSIS: CONGESTIVE HEART FAILURE CARDIAC HISTORY: CATHERIZATION: YES SURGERY: NO PROSTHETIC VALVE: NO PACEMAKER: NO MEASUREMENTS (cm) DIASTOLIC (NORMALS) SYSTOLIC (NORMALS) IVSd 1.0 (0.6-1.2) LA Diam 2.6 (1.9-4.0) LVEF 72% LVIDd 3.3 (3.5-5.7) LVIDs 2.0 (2.0-3.5) %FS 40% LVPWd 1.1 (0.6-1.2) Ao Diam 2.2 (2.0-3.7) 2 DIMENSIONAL ASSESSMENT: RIGHT ATRIUM: NORMAL LEFT [facility]UM: NORMAL RIGHT VENTRICLE: NORMAL LEFT VENTRICLE: NORMAL TRICUSPID VALVE: MODERATE TRICUSPID REGURGITAITON MITRAL VALVE: MILD MITRAL REGURGITATION PULMONIC VALVE: MILD PULMONIC INSUFFICIENCY AORTIC VALVE: CALCIFIED WITH MODERATE AORTIC STENOSIS PERICARDIAL EFFUSION: NONE AORTIC ROOT: NORMAL LEFT VENTRICULAR WALL MOTION: NORMAL DOPPLER/COLOR FLOW: SEE BELOW COMMENTS: 1. NORMAL LEFT VENTRICULAR EJECTION FRACTION 60-65% 2. NORMAL WALL MOTION 3. MODERATE DIASTOLIC DYSFUNCTION 4. CALCIFIED AORTIC VALVE WITH MODERATE AORTIC STENOSIS 5. SEVERE PULMONARY HYPERTENSION WITH RIGHT VENTRICULAR SYSTOLIC PRESSURE OF 60-65 mmHg TECHNOLOGIST: IVÁN TONG
[2023-06-27] MEDS: INSULIN -REGULAR HUMAN 50 UNIT/0.5 ML ML SQ SCH ×4 (07:30→20:03)
--- NOTE | 2023-06-27 08:51 | P.PN ---
Subjective Date of Service: 06/27/23 Primary Care Provider: Gareth Chief Complaint: acute on chronic renal failure Subjective: No new changes Review of Systems 10-point ROS is otherwise unremarkable Physical Examination - Vital Signs Temperature: 98.2 F Blood Pressure: 160/72 Pulse: 59 Respirations: 18 Pulse Ox (%): 95 - Physical Exam General: Alert, In no apparent distress HEENT: Atraumatic, PERRLA, EOMI Neck: Supple, JVD not distended Respiratory: Clear to auscultation bilaterally, Normal air movement Cardiovascular: Regular rate/rhythm, Normal S1 S2 Gastrointestinal: Normal bowel sounds, No tenderness Musculoskeletal: No tenderness Integumentary: No rashes Neurological: Normal speech, Normal tone, Normal affect Lymphatics: No axilla or inguinal lymphadenopathy Assessment And Plan - Current Problems (Diagnosis) (1) Acute on chronic renal failure Current Visit: No Status: Acute Plan: will admit. She is not hypokalemic. Will most likely need some diuresis. Consult to Dr. Edwards. Will have him manage the diuresis. Will monitor the creatine 06/27 Daughter at the bedside. Had a 10min discussion with them. Hopefully her creatine improves. However she may worsen and require dialysis in the near future. Qualifiers: Acute renal failure type: unspecified Chronic kidney disease stage: stage 5, not on chronic dialysis Qualified Code(s): N17.9 - Acute kidney failure, unspecified; N18.5 - Chronic kidney disease, stage 5 (2) Atrial fibrillation Onset Date: 11/15/15 Current Visit: No Status: Chronic Plan: Have held her metoporol. will discuss with Dr. Kruse about her dosage of amiodarone Qualifiers: Atrial fibrillation type: persistent (not longstanding) Qualified Code(s): I48.19 - Other persistent atrial fibrillation; I48.1 - Persistent atrial fibrillation (3) DM2 (diabetes mellitus, type 2) Current Visit: No Status: Chronic Plan: hold insulin for now. 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
[2023-06-27] MEDS: HOME MED 1 EA UNK (Memantine Hcl [Memantine Hcl] 5 MG Tablet) PO SCH (09:00)
[2023-06-27] MEDS: HOME MED 1 EA UNK (Mecobalamin [B12 Active] 1,000 MCG Tab.Chew) PO SCH (09:00)
[2023-06-27] MEDS ORDERED: AMLODIPINE 5 MG TAB PO SCH (09:00)
[2023-06-27] MEDS: FUROSEMIDE 40 MG/4 ML VIAL IV SCH ×2 (09:04→17:01)
[2023-06-27] MEDS: HYDRALAZINE HCL 25 MG TABLET PO SCH ×2 (09:05→17:31)
[2023-06-27] MEDS: ASPIRIN EC 81 MG TAB PO SCH (09:05)
[2023-06-27] MEDS: AMIODARONE HCL 200 MG TAB PO SCH (09:05)
[2023-06-27] MEDS: DOCUSATE NA 100 MG CAP PO SCH ×2 (09:05→20:04)
[2023-06-27] MEDS: CLOPIDOGREL 75 MG TABLET PO SCH (09:05)
[2023-06-27 09:27] LABS: Hematocrit 29.3 % (36.0-45.0); MPV 9.4 fL (7.6-11.3); Platelets 196 thou/uL (152-406); RBC Red Blood Cell Count 3.45 M/uL (3.86-4.86)
[2023-06-27 09:50] LABS: Albumin 2.7 g/dL (3.4-5.0); Bilirubin Total 0.5 mg/dL (0.2-1.0); Potassium 4.9 mEq/L (3.5-5.1); Uric Acid 11.1 mg/dL (2.6-6.0)
[2023-06-27 10:21] LABS: Anisocytosis 2+; Blood Morphology Comment NOTED (NOT SEEN); Platelet Estimate ADEQ
--- NOTE | 2023-06-27 21:39 | P.PN ---
Date of Service: 06/27/23 Vital Signs Temp Pulse Resp BP Pulse Ox 97.5 F 65 16 175/72 H 94 06/27/23 16:00 06/27/23 17:01 06/27/23 16:00 06/27/23 17:01 06/27/23 16:00 Medications Acetaminophen (Acetaminophen 325 Mg Tablet) 650 mg PO Q6H PRN PRN Reason: TEMP > 100' F Albuterol Sulfate (Albuterol 2.5 Mg/3 Ml Neb Argelia) 2.5 mg NEB [id number] PRN PRN Reason: WHEEZING Amiodarone HCl (Amiodarone Hcl 200 Mg Tab) 100 mg PO DAILY [facility] Last Admin: 06/27/23 09:05 Dose: 100 mg Amlodipine Besylate (Amlodipine 5 Mg Tab) 5 mg PO DAILY [facility] Last Admin: 06/27/23 09:05 Dose: 5 mg Aspirin (Aspirin Ec 81 Mg Tab) 81 mg PO DAILY [facility] Last Admin: 06/27/23 09:05 Dose: 81 mg Clopidogrel Bisulfate (Clopidogrel 75 Mg Tablet) 75 mg PO DAILY [facility] Last Admin: 06/27/23 09:05 Dose: 75 mg Docusate Sodium (Docusate Na 100 Mg Cap) 100 mg PO BID [facility] Last Admin: 06/27/23 20:04 Dose: 100 mg Ergocalciferol (Drisdol (Vitamin D=Ergocalciferol) 52036 Unit Cap) 50,000 unit PO Q7D [facility] Last Admin: 06/26/23 21:46 Dose: 50,000 unit Furosemide (Furosemide 40 Mg/4 Ml Vial) 40 mg IV BIDL [facility] Last Admin: 06/27/23 17:01 Dose: 40 mg Glucagon (Glucagon 1 Mg/Vial) 1 mg IM 1X PRN; Protocol PRN Reason: HYPOGLYCEMIA Home Med (Mecobalamin [B12 Active]) 1 tab PO DAILY [facility] Last Admin: 06/27/23 09:00 Dose: Not Given Home Med (Memantine Hcl [Memantine Hcl]) 5 mg PO DAILY [facility] Last Admin: 06/27/23 09:00 Dose: Not Given Hydralazine HCl (Hydralazine Hcl 20 Mg/Ml Vial) 10 mg IV Q6HP PRN PRN Reason: HIGHBP Last Admin: 06/26/23 00:47 Dose: 10 mg Hydralazine HCl (Hydralazine Hcl 25 Mg Tablet) 50 mg PO BID [facility] Last Admin: 06/27/23 17:31 Dose: 50 mg Insulin Human Regular (Insulin -Regular Human 50 Unit/0.5 Ml Ml) 0 unit SQ ACHS [facility]; Protocol Last Admin: 06/27/23 20:03 Dose: 2 unit Ipratropium [place] (Ipratropium Brom 0.5mg/2.5ml) 0.5 mg NEB [id number] PRN PRN Reason: WHEEZING Levothyroxine Sodium (Levothyroxine Sod 0.075 Mg Tab) 0.075 mg PO DAILYAC [facility] Last Admin: 06/27/23 05:41 Dose: 0.075 mg Ondansetron HCl (Ondansetron 4 Mg/2 Ml Vial) 4 mg IV Q6H PRN PRN Reason: NAUSEA / VOMITING Sodium Chloride (Flush Normal Saline 10 Ml) 10 ml IV BID [facility] Last Admin: 06/27/23 20:04 Dose: 10 ml Lab Results (last 24 hrs) 06/27/23 09:07: Sodium 138, Potassium 4.9, Chloride 108 H, Carbon Dioxide 21, Anion Gap 13.9, BUN 79 H, Creatinine 3.64 H, Est GFR (CKD-EPI) 12 L, Glucose 181 H, Uric Acid 11.1 H, Calcium 8.5, Total Bilirubin 0.5, AST 19, ALT 28, Alkaline Phosphatase 169 H, Serum Total Protein 7.0, Albumin 2.7 L, Globulin 4.3 H, Albumin/Globulin Ratio 0.6 L 06/27/23 09:07: WBC 5.50, RBC 3.45 L, Hgb 9.5 L, Hct 29.3 L, MCV 85.0, MCH 27.7, MCHC 32.6, RDW 29.6 H, Plt Count 196, MPV 9.4, Neutrophils % ENGINE INSPECTOR, Lymphocytes % ENGINE INSPECTOR, Absolute Neutrophils ENGINE INSPECTOR, Segmented Neutrophils 68, Absolute Lymphocytes ENGINE INSPECTOR, Lymphocytes 21, Monocytes 6, Absolute Monocytes ENGINE INSPECTOR, Eosinophils 5 H, Absolute Eosinophils ENGINE INSPECTOR, Absolute Basophils ENGINE INSPECTOR, Platelet Estimate Adeq, Anisocytosis 2+, Microcytosis 1+, Morphology Comment Noted 06/27/23 07:58: POC Glucose 152 H 06/27/23 06:00: Sodium Cancelled, Potassium Cancelled, Chloride Cancelled, Carbon Dioxide Cancelled, Anion Gap Cancelled, BUN Cancelled, Creatinine Cancelled, Est GFR (CKD-EPI) Cancelled, Glucose Cancelled, Calcium Cancelled, Total Bilirubin Cancelled, AST Cancelled, ALT Cancelled, Alkaline Phosphatase Cancelled, Serum Total Protein Cancelled, Albumin Cancelled, Globulin Cancelled, Albumin/Globulin Ratio Cancelled 06/27/23 06:00: WBC Cancelled, RBC Cancelled, Hgb Cancelled, Hct Cancelled, MCV Cancelled, MCH Cancelled, MCHC Cancelled, RDW Cancelled, Plt Count Cancelled, MPV Cancelled, Neutrophils % Cancelled, Lymphocytes % Cancelled, Monocytes % Cancelled, Eosinophils % Cancelled, Basophils % Cancelled, Absolute Neutrophils Cancelled, Absolute Lymphocytes Cancelled, Absolute Monocytes Cancelled, Absolute Eosinophils Cancelled, Absolute Basophils Cancelled, Diff Path Review Cancelled 06/26/23 21:44: POC Glucose 224 H Assessment/ Plan: Nephrology No dyspnea No chest pain Feeling better No acute events overnight Vitals, medications, blood work and imaging reviewed in the chart. General: Oriented x3, Cooperative HEENT: Atraumatic Neck: Supple Respiratory: Normal effort Cardiovascular: Normal S1 S2, Edema Gastrointestinal: Soft and benign, Non-distended Musculoskeletal: No clubbing, No contractures Integumentary: No rashes, No cyanosis Neurological: Normal speech Laboratory Data (last 24 hrs) 06/25/23 06/25/23 06/25/23 10:40 10:40 10:40 WBC 6.20 Hgb 10.2 L Hct 32.9 L Plt Count 227 PT 11.5 INR 1.05 Sodium 137 Potassium 4.2 BUN 84 H Creatinine 3.69 H Glucose 79 Phosphorus 5.2 H Magnesium 2.1 Total Bilirubin 0.3 AST 25 ALT 39 Alkaline Phosphatase 206 H Lipase 115 H Imagings Data: [facility] CLINICAL HISTORY: COUGH COMPARISON: Chest Single View dated 03/28/2023; Chest Pa And Lat (2 Views) dated 10/17/2022; Chest Single View dated 12/18/2021; Chest Single View dated 12/14/2021 TECHNIQUE: Portable AP view of the chest. FINDINGS: The lungs show minimal bibasilar opacities favored to represent atelectasis. Streaky central opacification. No pneumothorax or effusion. The cardiomediastinal contours are unchanged, with suggested calcified right hilar lymph nodes, stable. IMPRESSION: Streaky central opacities which may relate to atelectasis or reactive airway changes. No findings to suggest focal pneumonia. EXAM DESCRIPTION: CT - Stone Protocol - 06/25/2023 10:29 am CLINICAL HISTORY: Abd pain;Abdominal distention COMPARISON: Abdomen Pelvis Wo Contrast dated 06/09/2023; Abdomen Pelvis W/Wo Contrast dated 08/05/2020 TECHNIQUE: CT imaging of the abdomen and pelvis was performed without IV contrast. Multiplanar reformats were generated and reviewed. All CT scans are performed using dose optimization technique as appropriate and may include automated exposure control or mA/KV adjustment according to patient size. FINDINGS: Stable small to moderate right and small left pleural effusions. Diffuse body wall edema, progressive since the prior exam. . The liver and spleen show no focal suspicious findings. Scattered punctate calcifications throughout liver and spleen are stable and suggest remote granulomatous infection. Pancreas and adrenal glands are unremarkable. Gallbladder and biliary tree are also without suspicious finding, with spurious excretion of contrast in the gallbladder. . No hydronephrosis or suspicious renal mass. No significant adrenal finding. Isodense masses and pyelonephritis cannot be excluded in the absence of IV contrast. No dilated bowel loops or bowel wall thickening. Stable mild free pelvic a situs. Mildly progressive edema/fat stranding along the mesenteric root. No free air or inflammatory stranding. No hernia, mass or bulky lymphadenopathy. The urinary bladder is without significant finding. No suspicious bony findings. IMPRESSION: Stable free pelvic bursitis. Progressive edema/fat stranding along the mesenteric root, which is nonspecific, favored to relate to relate to fluid overload, although other nonspecific inflammatory processes in the abdomen, such as enteritis could result in a similar picture. Please correlate with patient's fluid status. Diffuse body wall edema progressive since the prior exam, also suggestive of fluid overload. Other stable findings as above, including bilateral pleural effusions. [facility] LEFT VENTRICULAR WALL MOTION: NORMAL DOPPLER/COLOR FLOW: SEE BELOW. COMMENTS: NORMAL LEFT VENTRICULAR EJECTION FRACTION 55-60% WITH NORMAL WALL MOTION. MODERATE DIASTOLIC DYSFUNCTION. MODERATE PULMONARY HYPERTENSION WITH RIGHT VENTRICULAR SYSTOLIC PRESSURE OF 45-50 mmHg. MILD MITRAL, TRICUSPID AND AORTIC REGURGITATION. Conclusions/Impression: Stage I LEE ANN may be CRS CKD IV with Proteinuria -No NSAIDs NAG Metabolic Acidosis -Continue furosemide HTN with CKD/ CHF -Increase Amlodipine BID -Change Hydralazine BID Diastolic CHF, A/C -Start Furosemide 40mg BID DM II with CKD -RISS Anemia in chronic illness -Monitor H&H Case reviewed with Dr. Servin
[2023-06-28] MEDS: LEVOTHYROXINE SOD 0.075 MG TAB PO SCH (06:17)
[2023-06-28 06:52] LABS: Hematocrit 30.2 % (36.0-45.0); MCV 85.5 fL (80-100); Platelets 198 thou/uL (152-406); RBC Red Blood Cell Count 3.54 M/uL (3.86-4.86)
[2023-06-28 07:10] LABS: Albumin 2.6 g/dL (3.4-5.0); Bilirubin Total 0.6 mg/dL (0.2-1.0); Potassium 4.9 mEq/L (3.5-5.1); Protein, Total 6.9 g/dL (6.4-8.2)
[2023-06-28] MEDS: INSULIN -REGULAR HUMAN 50 UNIT/0.5 ML ML SQ SCH ×2 (07:30→11:45)
[2023-06-28 07:31] LABS: Anisocytosis 3+; Blood Morphology Comment NOTED (NOT SEEN)
[2023-06-28 07:32] LABS: Target Cells 1+
[2023-06-28 07:33] LABS: Platelet Estimate ADEQ; Spherocyte 1+
[2023-06-28] MEDS: HOME MED 1 EA UNK (Mecobalamin [B12 Active] 1,000 MCG Tab.Chew) PO SCH (08:50)
[2023-06-28] MEDS: HOME MED 1 EA UNK (Memantine Hcl [Memantine Hcl] 5 MG Tablet) PO SCH (08:51)
[2023-06-28] MEDS ORDERED: AMLODIPINE 5 MG TAB PO SCH (09:00)
[2023-06-28] MEDS: DOCUSATE NA 100 MG CAP PO SCH (09:02)
[2023-06-28] MEDS: CLOPIDOGREL 75 MG TABLET PO SCH (09:02)
[2023-06-28] MEDS: AMIODARONE HCL 200 MG TAB PO SCH (09:02)
[2023-06-28] MEDS: FUROSEMIDE 40 MG/4 ML VIAL IV SCH (09:03)
[2023-06-28] MEDS: ASPIRIN EC 81 MG TAB PO SCH (09:03)
[2023-06-28] MEDS: HYDRALAZINE HCL 25 MG TABLET PO SCH (09:03)
[2023-06-28 10:30] VITALS: TEMP 98.3
--- NOTE | 2023-06-28 11:06 | P.PN ---
Date of Service: 06/28/23 Vital Signs Temp Pulse Resp BP Pulse Ox 98.3 F 79 20 159/83 H 96 06/28/23 08:00 06/28/23 09:03 06/28/23 08:00 06/28/23 09:03 06/28/23 08:00 Medications Acetaminophen (Acetaminophen 325 Mg Tablet) 650 mg PO Q6H PRN PRN Reason: TEMP > 100' F Albuterol Sulfate (Albuterol 2.5 Mg/3 Ml Neb Argeila) 2.5 mg NEB [id number] PRN PRN Reason: WHEEZING Amiodarone HCl (Amiodarone Hcl 200 Mg Tab) 100 mg PO DAILY [facility] Last Admin: 06/28/23 09:02 Dose: 100 mg Amlodipine Besylate (Amlodipine 5 Mg Tab) 5 mg PO BID [facility] Last Admin: 06/28/23 09:02 Dose: 5 mg Aspirin (Aspirin Ec 81 Mg Tab) 81 mg PO DAILY [facility] Last Admin: 06/28/23 09:03 Dose: 81 mg Clopidogrel Bisulfate (Clopidogrel 75 Mg Tablet) 75 mg PO DAILY [facility] Last Admin: 06/28/23 09:02 Dose: 75 mg Docusate Sodium (Docusate Na 100 Mg Cap) 100 mg PO BID [facility] Last Admin: 06/28/23 09:02 Dose: 100 mg Ergocalciferol (Drisdol (Vitamin D=Ergocalciferol) 73561 Unit Cap) 50,000 unit PO Q7D [facility] Last Admin: 06/26/23 21:46 Dose: 50,000 unit Furosemide (Furosemide 40 Mg/4 Ml Vial) 40 mg IV BIDL [facility] Last Admin: 06/28/23 09:03 Dose: 40 mg Glucagon (Glucagon 1 Mg/Vial) 1 mg IM 1X PRN; Protocol PRN Reason: HYPOGLYCEMIA Home Med (Mecobalamin [B12 Active]) 1 tab PO DAILY [facility] Last Admin: 06/28/23 08:50 Dose: Not Given Home Med (Memantine Hcl [Memantine Hcl]) 5 mg PO DAILY [facility] Last Admin: 06/28/23 08:51 Dose: Not Given Hydralazine HCl (Hydralazine Hcl 20 Mg/Ml Vial) 10 mg IV Q6HP PRN PRN Reason: HIGHBP Last Admin: 06/26/23 00:47 Dose: 10 mg Hydralazine HCl (Hydralazine Hcl 25 Mg Tablet) 50 mg PO BID [facility] Last Admin: 06/28/23 09:03 Dose: 50 mg Insulin Human Regular (Insulin -Regular Human 50 Unit/0.5 Ml Ml) 0 unit SQ ACHS [facility]; Protocol Last Admin: 06/28/23 07:30 Dose: Not Given Ipratropium [place] (Ipratropium Brom 0.5mg/2.5ml) 0.5 mg NEB [id number] PRN PRN Reason: WHEEZING Levothyroxine Sodium (Levothyroxine Sod 0.075 Mg Tab) 0.075 mg PO DAILYAC [facility] Last Admin: 06/28/23 06:17 Dose: 0.075 mg Ondansetron HCl (Ondansetron 4 Mg/2 Ml Vial) 4 mg IV Q6H PRN PRN Reason: NAUSEA / VOMITING Sodium Chloride (Flush Normal Saline 10 Ml) 10 ml IV BID [facility] Last Admin: 06/28/23 09:02 Dose: 10 ml Lab Results (last 24 hrs) 06/27/23 06:00: Sodium Cancelled, Potassium Cancelled, Chloride Cancelled, Carbon Dioxide Cancelled, Anion Gap Cancelled, BUN Cancelled, Creatinine Cancelled, Est GFR (CKD-EPI) Cancelled, Glucose Cancelled, Calcium Cancelled, Total Bilirubin Cancelled, AST Cancelled, ALT Cancelled, Alkaline Phosphatase Cancelled, Serum Total Protein Cancelled, Albumin Cancelled, Globulin Cancelled, Albumin/Globulin Ratio Cancelled 06/27/23 06:00: WBC Cancelled, RBC Cancelled, Hgb Cancelled, Hct Cancelled, MCV Cancelled, MCH Cancelled, MCHC Cancelled, RDW Cancelled, Plt Count Cancelled, MPV Cancelled, Neutrophils % Cancelled, Lymphocytes % Cancelled, Monocytes % Cancelled, Eosinophils % Cancelled, Basophils % Cancelled, Absolute Neutrophils Cancelled, Absolute Lymphocytes Cancelled, Absolute Monocytes Cancelled, Absolute Eosinophils Cancelled, Absolute Basophils Cancelled, Diff Path Review Cancelled Assessment/ Plan: Nephrology No dyspnea No chest pain Poor sleep overnight with dyspnea Good urine output No acute events overnight Vitals, medications, blood work and imaging reviewed in the chart. General: Oriented x3, Cooperative HEENT: Atraumatic Neck: Supple Respiratory: Normal effort Cardiovascular: Normal S1 S2, Edema Gastrointestinal: Soft and benign, Non-distended Musculoskeletal: No clubbing, No contractures Integumentary: No rashes, No cyanosis Neurological: Normal speech Laboratory Data (last 24 hrs) 06/25/23 06/25/23 06/25/23 10:40 10:40 10:40 WBC 6.20 Hgb 10.2 L Hct 32.9 L Plt Count 227 PT 11.5 INR 1.05 Sodium 137 Potassium 4.2 BUN 84 H Creatinine 3.69 H Glucose 79 Phosphorus 5.2 H Magnesium 2.1 Total Bilirubin 0.3 AST 25 ALT 39 Alkaline Phosphatase 206 H Lipase 115 H Imagings Data: EXAM DESCRIPTION: RADChest Single View06/25/2023 10:46 am CLINICAL HISTORY: COUGH COMPARISON: Chest Single View dated 03/28/2023; Chest Pa And Lat (2 Views) dated 10/17/2022; Chest Single View dated 12/18/2021; Chest Single View dated 12/14/2021 TECHNIQUE: Portable AP view of the chest. FINDINGS: The lungs show minimal bibasilar opacities favored to represent atelectasis. Streaky central opacification. No pneumothorax or effusion. The cardiomediastinal contours are unchanged, with suggested calcified right hilar lymph nodes, stable. IMPRESSION: Streaky central opacities which may relate to atelectasis or reactive airway changes. No findings to suggest focal pneumonia. EXAM DESCRIPTION: CT - Stone Protocol - 06/25/2023 10:29 am CLINICAL HISTORY: Abd pain;Abdominal distention COMPARISON: Abdomen Pelvis Wo Contrast dated 06/09/2023; Abdomen Pelvis W/Wo Contrast dated 08/05/2020 TECHNIQUE: CT imaging of the abdomen and pelvis was performed without IV contrast. Multiplanar reformats were generated and reviewed. All CT scans are performed using dose optimization technique as appropriate and may include automated exposure control or mA/KV adjustment according to patient size. FINDINGS: Stable small to moderate right and small left pleural effusions. Diffuse body wall edema, progressive since the prior exam. . The liver and spleen show no focal suspicious findings. Scattered punctate calcifications throughout liver and spleen are stable and suggest remote granulomatous infection. Pancreas and adrenal glands are unremarkable. Gallbladder and biliary tree are also without suspicious finding, with spurious excretion of contrast in the gallbladder. . No hydronephrosis or suspicious renal mass. No significant adrenal finding. Isodense masses and pyelonephritis cannot be excluded in the absence of IV contrast. No dilated bowel loops or bowel wall thickening. Stable mild free pelvic a situs. Mildly progressive edema/fat stranding along the mesenteric root. No free air or inflammatory stranding. No hernia, mass or bulky lymphadenopathy. The urinary bladder is without significant finding. No suspicious bony findings. IMPRESSION: Stable free pelvic bursitis. Progressive edema/fat stranding along the mesenteric root, which is nonspecific, favored to relate to relate to fluid overload, although other nonspecific inflammatory processes in the abdomen, such as enteritis could result in a similar picture. Please correlate with patient's fluid status. Diffuse body wall edema progressive since the prior exam, also suggestive of fluid overload. Other stable findings as above, including bilateral pleural effusions. [facility] LEFT VENTRICULAR WALL MOTION: NORMAL DOPPLER/COLOR FLOW: SEE BELOW. COMMENTS: NORMAL LEFT VENTRICULAR EJECTION FRACTION 55-60% WITH NORMAL WALL MOTION. MODERATE DIASTOLIC DYSFUNCTION. MODERATE PULMONARY HYPERTENSION WITH RIGHT VENTRICULAR SYSTOLIC PRESSURE OF 45-50 mmHg. MILD MITRAL, TRICUSPID AND AORTIC REGURGITATION. Conclusions/Impression: Stage I LEE ANN may be CRS CKD IV with Proteinuria -No NSAIDs NAG Metabolic Acidosis -Continue furosemide HTN with CKD/ CHF -Continue Amlodipine BID -Continue Hydralazine BID -Restart Metoprolol BID Diastolic CHF, A/C Pulmonary HTN -Contnue Furosemide 40mg BID DM II with CKD -RISS Anemia in chronic illness Iron Deficiency -Monitor H&H -IV iron daily Case reviewed with Dr. Servin
[2023-06-28 11:09] VITALS: O2SAT 95
[2023-06-28] MEDS ORDERED: SOD FERRIC GLUC COMPLX/SUCROSE 125 MG in NA CHLORIDE 0.9% 100 ML IV SCH (11:15)
[2023-06-28] MEDS ORDERED: EPOETIN ALFA-EPBX 10,000 UNIT/ML VIAL SQ ONE (11:15)
[2023-06-28 12:12] VITALS: BP 165/63
[2023-06-28] MEDS ORDERED: METOPROLOL TAR 25 MG TAB PO SCH (18:00)
--- NOTE | 2023-06-28 20:24 | PN ---
Date of Progress Note: 06/28/2023 Subjective: Seen by bedside. She is improving. Her fluid status has improved significantly. No si gnificant shortness of breath, but she is not sleeping well at night. Review of Systems: No chest pain, shortness of breath, orthopnea, cough. No nausea, vomiting, diarrhea. All other syst ems reviewed are negative. Physical Examination: Vital Signs: Reviewed. Head and Neck: Pupils are equal, reactive to light. Intact eye movements. No JVD. No cervical lym phadenopathy. Neck is supple. Thyroid is not enlarged. Lungs: Clear to auscultation bilaterally. No rhonchi, wheezing, or crackles. No accessory muscle u se. Heart: Irregular. No extra sounds. Abdomen: Soft, nontender. Bowel sounds positive. No organomegaly. No masses or hernia. No rigidi ty or rebound. Extremities: No clubbing, cyanosis. Intact pulses. Skin: No rash. Neurologic: Alert, awake. No acute focal deficits appreciated. Investigations: BUN 75, creatinine 3.4. Hemoglobin is 9.6. Assessment And Recommendations: 1.Acute on chronic diastolic heart failure exacerbation, improved significantly. Continue low-salt diet and continue oral Lasix. Patient can be released to follow up as an outpatient. 2.Chronic kidney disease with exacerbation. It stabilized and she is following up with Nephrology. The patient understands that she might need to go through dialysis in the near future. 3.Coronary artery disease. No chest pain. Continue to monitor. SR/MODL Voice ID: [id number] Report ID: [id number]
== END 2023-06-28 14:00 | disposition home or self-care (01) | DRG 682 ==
LOC: ER 10:03 → ERHOLD 12:12 → 2ND 13:50 → OBSVTOIN 06-27 14:30
PROVIDERS: ADMIT Internal Medicine; ATTEND Internal Medicine
DX: N17.9 Acute kidney failure, unspecified (principal); I50.33 Acute on chronic diastolic (congestive) heart failure; E87.20 Acidosis, unspecified; I48.19 Other persistent atrial fibrillation; I13.2 Hypertensive heart and chronic kidney disease with heart failure and with stage 5 chronic kidney disease, or end stage renal disease; N18.5 Chronic kidney disease, stage 5; E11.22 Type 2 diabetes mellitus with diabetic chronic kidney disease; D63.1 Anemia in chronic kidney disease; D50.9 Iron deficiency anemia, unspecified; E89.0 Postprocedural hypothyroidism; J44.9 Chronic obstructive pulmonary disease, unspecified; I25.10 Atherosclerotic heart disease of native coronary artery without angina pectoris; Z79.4 Long term (current) use of insulin; Z88.2 Allergy status to sulfonamides; Z95.5 Presence of coronary angioplasty implant and graft; Z79.82 Long term (current) use of aspirin; Z79.01 Long term (current) use of anticoagulants; Z79.02 Long term (current) use of antithrombotics/antiplatelets; Z90.710 Acquired absence of both cervix and uterus; Z79.899 Other long term (current) drug therapy; Z79.890 Hormone replacement therapy; Z87.891 Personal history of nicotine dependence
CPT/HCPCS: 36415; 71045; 74176; 76377; 80048; 80053; 80076; 81001; 82947; 83690; 83735; 83880; 84100; 84484; 84550; 85025; 85610; 93005; 93306; 94640; 96374; 97116; 97161; 97530; 99285; J0360; J1815; J1940; J2916; J7613; J7644; Q5106

== ENCOUNTER 2023-07-02 12:04 | Inpatient (IN) | payer OTHER ==
--- OUTSIDE RECORDS SUMMARY | 2023-07-02 12:12 | XMS REPORT | Continuity of Care Document ---
:1940 Author Organization [facility] t Address [address] [facility] [address] [place] [address] Care Team Providers Name Role Phone Norberto [...] Date DM II DM II Disease Recurre 2021-[address] (diabetes (diabetes nce 3-22 Luke [...] Type Date Date Clinician [place]ulf[place] Active [place] [facility] ([facility]ulf[facility] 4[facility]12 [place] [facility] 00:[facility]: d Antibiot 00 Medical ics) [facility] [place]ulf[place] [facility] ([facility]ulf[facility] 4[facility]12 [place] [facility] 00:[facility]: d Antibiot 00 Medical ics) [facility] Baclofen Propensi Active Hallucinatio Methodi ty to [...] Stop Date Quantity Comments Source Gender [facility] SDOH [facility] Alcohol Binge Medical José Miguel ter History SDOH [facility] Alcohol Std Drinks [facility]ica [facility] Center Alcohol intake 2021-02-04 2021-02-[address] [facility] 00:[facility] 00:00:00 non-drinker of Medical Ce nter alcohol (finding) History of Social 2021-01-19 2021-01-[address] function 00:00:00 00:00:00 Hospital Tobacco use and 2021-01-15 2021-01-15 Smokeless [facility] 00:00:00 00:00:00 tobacco non-user Hospital History [facility] 2018-12-24 2018-12-[address] [facility] Alcohol Frequency 00:00:00 00:00:00 Medical Center History of tobacco 1967-11-[address] [facility] use 00:00:00 [facility] Center Sex Assigned At [address] [facility] 00:[facility]00 [facility]00 [facility] Center Smoking Status Start Date Stop Date Source Never smoked tobacco [facility] Ex-smoker 2018-12-24 00:00:00 2018-12-24 00:00:[address] [facility] Medications Ordered Filled Start Stop Current [...] [place] tablet 32 Center sodium Yes 1{tbl} Q.[id number] Take [address] bicarbonate 3-29 [id number] tablet [facility] 650 MG 20:24: 3D [...] moriah tablet 32 Center sodium Yes 1{tbl} Q.21724719 Take [address] bicarbonate 3-29 [id number] tablet [facility] 650 MG 20:24: 3D mouth 3 Medical tablet 32 (three) Center times daily. apixaban 0 Yes 2.5mg Q.5D Take 2.[address] (Eliquis) 3-29 mg [facility] 2.5 mg Tab 20:24: mouth 2 Medi [place] tablet 32 (two) Center times daily. dulaglutide 0 Yes .75mg Q7D Inject [facility] (Trulicity) [...] [facility] tablet 32 Center sodium Yes 1{tbl} Q.37120211 Take [address] bicarbonate 3-29 [id number] tablet [facility] 650 MG 20:24: 3D [...] Center (two) times daily. insulin Yes 2U Q.[id number] Inject 2 Methodi lispro 3-[id number] (HumaLOG 00:00: 3D under the Hosp constantin KwikPen 00 skin 3 l Insulin) (three) 100 unit/mL times a injection day before pen meals. SITagliptin Yes 25mg QD Take 1 Meth julianna (JANUVIA) 3-12 tablet (25 st 25 MG 00:00: mg total) Hospita tablet 00 by mouth l daily. insulin 2021-0 Yes 2U Q.[id number] Inject 2 Methodi lispro 3-[id number] (HumaLOG 00:00: 3D under the Hosp constantin KwikPen 00 skin 3 l Insulin) (three) 100 unit/mL times a injection day before pen meals. SITagliptin 2021-0 Yes 25mg QD Take 1 Meth julianna (JANUVIA) 3-12 tablet (25 st 25 MG 00:00: mg total) Hospita tablet 00 by mouth l daily. insulin 2021-0 Yes 2U Q.[id number] Inject 2 Methodi lispro 3-[id number] (HumaLOG 00:00: 3D under the Hosp constantin KwikPen 00 skin 3 l Insulin) (three) 100 unit/mL times a injection day before pen meals. SITagliptin 2020-0 Yes 25mg QD Take 1 Meth julianna (JANUVIA) 3-12 tablet (25 st 25 MG 00:00: mg total) Hospita tablet 00 by mouth l daily. cephalexin 2021-0 Yes 250mg QD Take 250 Me thodi (KEFLEX) 3-[address] 250 MG 19:51: mouth Hospita capsule 08 daily. l [facility] therapy for UTI levothyroxi 2020-0 Yes 88ug QD Take 88 Met hodi ne 3-[address] (SYNTHROID) 19:51: mouth Hospi ta 88 mcg 08 daily. l tablet cephalexin 2020-0 Yes 250mg QD Take 250 Me thodi (KEFLEX) 3-[address] 250 MG 19:51: mouth Hospita capsule 08 daily. 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 l tablet cephalexin 2021-0 Yes 250mg QD Take 250 Me thodi (KEFLEX) 3-[address] 250 MG 19:51: mouth Hospita capsule 08 daily. l [facility] therapy for UTI levothyroxi 202-0 Yes 88ug QD Take 88 Met hodi ne 3-[address] (SYNTHROID) 19:51: mouth Hospi ta 88 mcg 08 daily. l tablet insulin Yes 20U QD Inject 20 Metho di detemir 3-[address] U-100 00:00: under the Hospita (LEVEMIR) 00 skin l 100 unit/mL daily. injection insulin 0 Yes 20U QD Inject 20 Metho di detemir 3-[address] U-100 00:00: under the Hospita (LEVEMIR) 00 skin l 100 unit/mL daily. injection insulin 0 Yes 20U QD Inject 20 [...] Procedure Date / Time Performed Performing Clinician Dave neetu [id number] 2021-02-23 00:00:[address] [facility] Plan of Care Planned Activity Planned Date Details Comments Source Future Scheduled 2023-07-[address] [facility] Test 00:00:00 (Season Ended) [code = [facility] INFLUENZA VACCINE (Season Ended)] Future Scheduled 2023-07-13 Influenza Vaccine (#1) [facility] 00:00[facility]00 [code = Influenza Medical Ce nter Vaccine (#1)] Future Scheduled 2023-07-13 Influenza Vaccine (#1) [facility] Test 00:00:00 [code = Influenza Medical Ce nter Vaccine (#1)] Future Scheduled 2023-06-14 COVID-19 [facility]ACCINE (#[facility] 18:55:06 [code = COVID-19 VACCINE (#1)] Future Scheduled 2023-06-14 65+ PNEUMOCOCCAL [facility] Test 18:55:06 VACCINE (1 - PCV) [code = 65+ PNEUMOCOCCAL VACCINE (1 - PCV)] Future Scheduled 2023-06-14 SHINGLES VACCINES (1 [facility] Test 18:55:06 of 2) [code = SHINGLES VACCINES (1 of 2)] Future Scheduled 2023-06-14 INFLUENZA VACCINE [facility] Test 18:55:06 [code = INFLUENZA VACCINE] Future Scheduled 2023-04-26 [facility] 18:54:43 [code = COVID-19 VACCINE (#1)] Future Scheduled 2023-04-26 65+ PNEUMOCOCCAL [facility] Test 18:54:43 VACCINE (1 - PCV) [code = 65+ PNEUMOCOCCAL VACCINE (1 - PCV)] Future Scheduled 2023-04-26 SHINGLES VACCINES (1 Met [facility] Test 18:54:43 of 2) [code = SHINGLES VACCINES (1 of 2)] Future Scheduled 2023-04-26 INFLUENZA VACCINE [facility] Test 18:54:43 [code = INFLUENZA VACCINE] Future Scheduled 2023-03-28 COVID-19 VACCINE (#1) [facility] Test 12:13:27 [code = COVID-19 VACCINE (#1)] Future Scheduled 2023-03-28 65+ PNEUMOCOCCAL [facility] Test 12:13:27 VACCINE (1 - PCV) [code = 65+ PNEUMOCOCCAL VACCINE (1 - PCV)] Future Scheduled 2023-03-28 SHINGLES VACCINES (1 Met [facility] Test 12:13:27 of 2) [code = [...] 00:00:00 protein (procedure) Medical Center [code = 633075833] Future Scheduled 2022-01-16 Urine screening for [facility] Test 00:00:00 protein (procedure) Medical Center [code = 718172024] Future Scheduled 2022-01-16 Urine screening for [facility] Test 00:00:00 protein (procedure) Medical Center [code = 334127252] Future Scheduled 2021-11-[address] [...] 00:00:00 measurement Medical Center (procedure) [code = 77350670] Future Scheduled 2021-05-[address] [facility] 00:[facility]00 measurement Medical Center (procedure) [code = 33186813] Future Scheduled 2021-05-[address] [facility] 00:00:00 measurement Medical Center (procedure) [code = 50120053] Future Scheduled 1989 SHINGLES VACCINES (1 [facility] [...] 00:00:00 examination Medical Center (regime/therapy) [code = 060033966] Future Scheduled [address] EYE EXAM [facility] Test 00:00:00 [code = DIABETIC EYE Medical Center EXAM] Future Scheduled [address] [facility] Test 00:00:00 examination Medical Center (regime/therapy) [code = 851232171] Future Scheduled 1950 [address]AB[address]IC EYE EXAM [facility] Test 00:00:00 [code = DIABETIC EYE Medical Center EXAM] Future Scheduled [address] [facility] Test 00:00:00 examination Medical Center (regime/therapy) [code = 558366348] Future Scheduled 1945 PNEUMOCOCCAL 65+ YRS CHI [...] Type Clinicians Facility Department ID 2021-04-12 Inpatient TABITHA Eaton [facility] [id number] [facility] 11:00:00 Luda 17 [facility] 2021-01-31 Inpatient ER RASWILL, SLE Cardiology [id number] [facility] 18:45:00 LUDA 2021-04-09 2021-04-09 Outpatient UNDEFINED HCAPM LABO [id number] [facility] 10:39:00 10:39:00 92 Yue john [facility] 2021-04-08 2021-04-08 Outpatient BERTIN Rodriguez, HCACL LABO [id number] [facility] 12:08:00 12:08:00 Cristino 76 [facility] 2021-02-23 2021-02-25 Inpatient BERTIN James, HCACL INTE.02 [id number] [facility] 13:14:00 14:49:00 Norberto 80 [facility] 2021-01-15 2021-01-20 Inpatient MIAN, [facility] 012 [id number] [place] 00:00:00 00:00:00 SAHITYA [address] Results Test Description Test Time Test Comments Results Result Comments Source ANTINUCLEAR ANTIBODIES TITER 2021-04-13 13:12:00 Test Item Value Reference Range Interpretation Comme nts KAMILA SCREEN (test code = Negative See_Comment Ne gative <1:80 Borderline 1:80 ANASCR) Positive >1:80P erformed At: [facility] [address] [address]Mysol Gama Rothman MD Ph:[phone] [Automated message] The sy stem which generated this result tra nsmitted reference range: (). The reference range was not used to int erpret this result as normal/abnor mal. FAX:[phone] FAX:[phone] RFLX MICR CULT IF [id number] 20:07:00 Test Item Value Reference Range Interpretation [...] code = 0-5 /HPF NONE SEEN SQU) FAX:[phone]:[phone] PROT ELECTROPHORESIS [id number] 20:07:00 Test Item Value Reference Range Interpretation Comments UR TOTAL PROTEIN 261.4 mg/dL Not Estab. Results con firmed (test code = ondilution. PROTEU) UR ALBUMIN % (test 42.0 % See_Comment [Automat ed message] code = ALBEU%) The system [employer] ich generated this result transmitted ref erence range: (). The reference range was not used to int erpret this result as normal/abnormal . UR 8.6 % See_Comment [Automated [employer]] XRNPO-8-GJRAQISO % The [employer] which (test code = generated this result A1GU%) transmitted ref erence range: (). The reference range was not used to int erpret this result as normal/abnormal . UR 12.4 % See_Comment [Automated [employer]] QWIKI-2-KILPXHYF % The [employer] which (test code = generated this result A2GU%) transmitted ref erence range: (). The reference range was not used to int erpret this result as normal/abnormal . UR BETA GLOBULIN % 18.2 % See_Comment [Automat ed message] (test code = BGU%) The [employer] which generated this result transmitted ref erence range: (). The reference range was not used to int erpret this result as normal/abnormal . UR GAMMA GLOBULIN 18.7 % See_Comment [Automate d message] % (test code = The system ich GGU%) generated this result transmitted ref erence range: (). The reference range was not used to int erpret this result as normal/abnormal . M SPIKE % (test Not Observed % Not Observed code = MSPIKE%) FAX:[phone]:[phone] MICROALBUMIN/CREAT [id number] 20:07:00 Test Item Value Reference Range Interpretation [...] increa sed: >300Performed A t: HD [facility] [address] [place], [place] [address]Fnuhg Gama Rothman MD Ph:[phone] FAX:[phone]:[phone] METABOLIC [id number] 20:07:00 Test Item Value Reference Range Interpretation [...] 20-125 H TOTAL (test code = ALKP) FAX:[phone] FAX:[phone] ELECTROPHORESIS [id number] 20:07:00 Test Item Value Reference Range Interpretation Comments TOTAL PROTEIN 8.0 g/dL 6.0-8.5 (test code = PROTE) ALBUMIN (test 3.2 g/dL 2.9-4.4 code = ALBE) OOHKN-5-GOLZVRK 0.3 g/dL 0.0-0.4 N (test code = A1G) CKAYT-9-QRDRKWD 1.3 g/dL 0.4-1.0 A N (test code [...] chain quantitation.Pe rformed At: HD [facility] [address] [place], [place] [address]Ajxjz Gama Rothman MD Ph:[phone] rformed At: DA [facility] [address] [place], [place] [id number] brian BRISENO MD Ph:[phone] [ Automated message] The sy stem which generated this result transmitted ref erence range: (). The reference range was not u sed to interpret this result as normal/abnormal . FAX:[phone] FAX:[phone] 20:07:00 Test Item Value Reference Range Interpretation Comments PHOSPHOROUS (test code = PHOS) 3.9 MG/DL 2.5-4.9 N FAX:[phone] FAX:[phone] [id number] 20:07:00 Test Item Value Reference Range Interpretation Comments URIC ACID (test code = URIC) 9.0 mg/dL 2.6-7.2 H FAX:[phone] FAX:[phone] 20:07:00 Test Item Value Reference Range Interpretation Comments MAGNESIUM (test code = MAG) 1.53 mg/dL 1.80-2.40 L FAX:[phone] FAX:[phone] PRO-BRAIN NATRIURETIC [id number] 20:07:00 Test Item Value Reference Range Interpretation Comments NT PRO-BRAIN NATRIURETIC PEPTI 4512 PG/ML 0-100 H (test code = PROBNP) FAX:[phone] FAX:[phone] A,G [id number] 20:07:00 Test Item Value Reference Range Interpretation Comments IMMUNOGLOBULIN G (test 1712 mg/dL 586-1602 A code = IGG) IMMUNOGLOBULIN M (test 52 mg/dL 26-217 Perfo rmed At: HD code = IGM) [facility] [address] [id number] Gama Rothman MD Ph:[phone] IMMUNOGLOBULIN A (test 663 mg/dL 64-422 A code = IGA) FAX:[phone] FAX:[phone] D [id number] 20:07:00 Test Item Value Reference Range Interpretation Comments VITAMIN D 25-HYDROXY (test code = 17.4 ng/mL 30-100 L VITD25) FAX:[phone] FAX:[phone] RFLX MICR CULT IF [id number] 11:08:00 Test Item Value Reference Range Interpretation [...] code = 0-5 /HPF NONE SEEN SQU) FAX:[phone]:[phone] PROT ELECTROPHORESIS [id number] 11:08:00 Test Item Value Reference Range Interpretation Comments UR TOTAL PROTEIN (test code = PROTEU) UR ALBUMIN % (test code = ALBEU%) UR PTJFI-9-KJYXQZVU % (test code = A1GU%) UR BXBQI-3-WJYUYVIF % (test code = A2GU%) UR BETA GLOBULIN % (test code = BGU%) UR GAMMA GLOBULIN % (test code = GGU%) M SPIKE % (test code = MSPIKE%) FAX:[phone]:[phone] MICROALBUMIN/CREAT [id number] 11:08:00 Test Item Value Reference Range Interpretation Comments UR CREATININE (test 94.8 mg/dL Not Estab. code = CREATE) UR MICROALBUMIN QUAL 1439.2 ug/mL Not Estab. Results confirmed (test code = MICALBQL) ondil ution. UR MICROALB/CREAT 1518 0-29 H INFCE Resu lt Units: RATIO (test code = mg/g crea t Normal: MICALB:CRE) 0 - 29 Moderate ly increased: 30 - 300 Severely increased: >300Performe d At: HD [facility] [address] [place], [place] [address]Dcdok Gama Rothman MD Ph:[phone] FAX:[phone]:[phone] METABOLIC [id number] 10:08:00 Test Item Value Reference Range Interpretation [...] 20-125 H TOTAL (test code = ALKP) FAX:[phone] FAX:[phone] ELECTROPHORESIS [id number] 10:08:00 Test Item Value Reference Range Interpretation Comments TOTAL PROTEIN (test code = PROTE) ALBUMIN (test code = ALBE) KKQIR-1-VUPCVZPS (test code = A1G) SBEUA-5-IRYYTFWR (test code = A2G) BETA GLOBULIN (test code = BG) GAMMA GLOBULIN (test code = GG) M-SPIKE,SERUM (test code = MSPIKES) GLOBULIN ELECT (test code = GLOBE) ALBUMIN/GLOBULIN RATIO (test code = AGE) PROT.ELECTROPH.INTERPRETATION (test code = ELEINT) FAX:[phone] FAX:[phone] 10:08:00 Test Item Value Reference Range Interpretation Comments PHOSPHOROUS (test code = PHOS) 3.9 MG/DL 2.5-4.9 N FAX:[phone] FAX:[phone] [id number] 10:08:00 Test Item Value Reference Range Interpretation Comments URIC ACID (test code = URIC) 9.0 mg/dL 2.6-7.2 H FAX:[phone] FAX:[phone] 10:08:00 Test Item Value Reference Range Interpretation Comments MAGNESIUM (test code = MAG) 1.53 mg/dL 1.80-2.40 L FAX:[phone] FAX:[phone] PRO-BRAIN NATRIURETIC [id number] 10:08:00 Test Item Value Reference Range Interpretation Comments NT PRO-BRAIN NATRIURETIC PEPTI 4512 PG/ML 0-100 H (test code = PROBNP) FAX:[phone] FAX:[phone] A,G [id number] 10:08:00 Test Item Value Reference Range Interpretation Comments IMMUNOGLOBULIN G (test 1712 mg/dL 586-1602 A code = IGG) IMMUNOGLOBULIN M (test 52 mg/dL 26-217 Perfo rmed At: HD code = IGM) [facility] [id number] Gama Rothman MD Ph:[phone] IMMUNOGLOBULIN A (test 663 mg/dL 64-422 A code = IGA) FAX:[phone] FAX:[phone] D [id number] 10:08:00 Test Item Value Reference Range Interpretation Comments VITAMIN D 25-HYDROXY (test code = 17.4 ng/mL 30-100 L VITD25) FAX:[phone] FAX:[phone] PRO-BRAIN NATRIURETIC [id number] 13:38:00 Test Item Value Reference Range Interpretation Comments NT PRO-BRAIN NATRIURETIC PEPTI 4512 PG/ML 0-100 H (test code = PROBNP) FAX:[phone] FAX:[phone] METABOLIC [id number] 13:38:00 Test Item Value Reference Range Interpretation [...] 20-125 H TOTAL (test code = ALKP) FAX:[phone] FAX:[phone] ELECTROPHORESIS [id number] 13:38:00 Test Item Value Reference Range Interpretation Comments TOTAL PROTEIN (test code = PROTE) ALBUMIN (test code = ALBE) JEPQE-1-ZAGZFXZN (test code = A1G) ZNHIG-4-WFQEBRQR (test code = A2G) BETA GLOBULIN (test code = BG) GAMMA GLOBULIN (test code = GG) M-SPIKE,SERUM (test code = MSPIKES) GLOBULIN ELECT (test code = GLOBE) ALBUMIN/GLOBULIN RATIO (test code = AGE) PROT.ELECTROPH.INTERPRETATION (test code = ELEINT) FAX:[phone] FAX:[phone] 13:38:00 Test Item Value Reference Range Interpretation Comments PHOSPHOROUS (test code = PHOS) 3.9 MG/DL 2.5-4.9 N FAX:[phone] FAX:[phone] [id number] 13:38:00 Test Item Value Reference Range Interpretation Comments URIC ACID (test code = URIC) 9.0 mg/dL 2.6-7.2 H FAX:[phone] FAX:[phone] 13:38:00 Test Item Value Reference Range Interpretation Comments MAGNESIUM (test code = MAG) 1.53 mg/dL 1.80-2.40 L FAX:[phone] FAX:[phone] PRO-BRAIN NATRIURETIC [id number] 13:38:00 Test Item Value Reference Range Interpretation Comments NT PRO-BRAIN NATRIURETIC PEPTI 4512 PG/ML 0-100 H (test code = PROBNP) FAX:[phone] FAX:[phone] A,G [id number] 13:38:00 Test Item Value Reference Range Interpretation Comments IMMUNOGLOBULIN G (test code = IGG) IMMUNOGLOBULIN M (test code = IGM) IMMUNOGLOBULIN A (test code = IGA) FAX:[phone] FAX:[phone] D [id number] 13:38:00 Test Item Value Reference Range Interpretation Comments VITAMIN D 25-HYDROXY (test code = 17.4 ng/mL 30-100 L VITD25) FAX:[phone] FAX:[phone] Coronavirus 2019 [id number] 06:58:00 Test Item Value Reference Range Interpretation [...] for the identification of SARS-CoV-2 RNA usingthe [employer] [place] M2000 Sy stem under the FDA Emergen cy UseAuthorizatio n. The testing is perf ormed by personneltraine d in the procedures for the [employer] [place] M2000 molecular diagnostic SARS-CoV-2 assa y in vitro. HGBA1C%2021-04-08 14:21:00 Test Item Value Reference Range Interpretation Comments HGBA1C% (test code = HGBA1C%) 7.8 %A1C 4.8-6.0 H FAX:[phone] METABOLIC [id number] 13:51:00 Test Item Value Reference Range Interpretation [...] 20-125 H TOTAL (test code = ALKP) FAX:[phone] ELECTROPHORESIS [id number] 13:51:00 Test Item Value Reference Range Interpretation Comments TOTAL PROTEIN (test code = PROTE) ALBUMIN (test code = ALBE) OQZNF-3-CGTFNVJD (test code = A1G) MTRRH-2-FCLGJNKC (test code = A2G) BETA GLOBULIN (test code = BG) GAMMA GLOBULIN (test code = GG) M-SPIKE,SERUM (test code = MSPIKES) GLOBULIN ELECT (test code = GLOBE) ALBUMIN/GLOBULIN RATIO (test code = AGE) PROT.ELECTROPH.INTERPRETATION (test code = ELEINT) FAX:[phone] 13:51:00 Test Item Value Reference Range Interpretation Comments PHOSPHOROUS (test code = PHOS) 3.9 MG/DL 2.5-4.9 N FAX:[phone] [id number] 13:51:00 Test Item Value Reference Range Interpretation Comments URIC ACID (test code = URIC) 9.0 mg/dL 2.6-7.2 H FAX:[phone] 13:51:00 Test Item Value Reference Range Interpretation Comments MAGNESIUM (test code = MAG) 1.53 mg/dL 1.80-2.40 L FAX:[phone] PRO-BRAIN NATRIURETIC [id number] 13:51:00 Test Item Value Reference Range Interpretation Comments NT PRO-BRAIN NATRIURETIC PEPTI (test code = PROBNP) FAX:[phone] [id number] 13:51:00 Test Item Value Reference Range Interpretation Comments IMMUNOGLOBULIN G (test code = IGG) FAX:[phone] [id number] 13:51:00 Test Item Value Reference Range Interpretation Comments IMMUNOGLOBULIN M (test code = IGM) FAX:[phone] [id number] 13:51:00 Test Item Value Reference Range Interpretation Comments IMMUNOGLOBULIN A (test code = IGA) FAX:[phone] D [id number] 13:51:00 Test Item Value Reference Range Interpretation Comments VITAMIN D 25-HYDROXY (test code = 17.4 ng/mL 30-100 L VITD25) FAX:[phone] RFLX MICR CULT IF [id number] 13:41:00 Test Item Value Reference Range Interpretation [...] code = 0-5 /HPF NONE SEEN SQU) FAX:[phone] PROT ELECTROPHORESIS [id number] 13:41:00 Test Item Value Reference Range Interpretation Comments UR TOTAL PROTEIN (test code = PROTEU) UR ALBUMIN % (test code = ALBEU%) UR ROHWQ-9-MUVRNNWR % (test code = A1GU%) UR HYOBR-1-QAJVZHQV % (test code = A2GU%) UR BETA GLOBULIN % (test code = BGU%) UR GAMMA GLOBULIN % (test code = GGU%) M SPIKE % (test code = MSPIKE%) FAX:[phone] MICROALBUMIN/CREAT [id number] 13:41:00 Test Item Value Reference Range Interpretation Comments UR CREATININE (test code = CREATE) UR MICROALBUMIN QUAL (test code = MICALBQL) UR MICROALB/CREAT RATIO (test code mcg/mgCr = MICALB:CRE) FAX:[phone] METABOLIC [id number] 13:39:00 Test Item Value Reference Range Interpretation [...] 9.5 mg/dL 8.0-10.5 N CA) PTH INTACT [id number] 13:24:00 Test Item Value Reference Range Interpretation Comments PARATHYROID HORMONE INTACT (test 162.2 pg/mL 14.0-72.0 H code = PARAI) FAX:[phone] [id number] 13:12:00 Test Item Value Reference Range Interpretation [...] (to prevent recurrent infar ct). CBC W/AUTO [id number] 13:06:00 Test Item Value Reference Range Interpretation [...] (test code NO = MDIFF) PROTEIN ELECTROPHORESIS [id number] 13:09:00 Test Item Value Reference Range Interpretation Comments TOTAL PROTEIN 7.0 g/dL 6.0-8.5 (test code = PROTE) ALBUMIN (test 2.9 g/dL 2.9-4.4 code = ALBE) DOHVV-8-VKOVGENL 0.4 g/dL 0.0-0.4 (test code = A1G) DMVRW-8-MQWJJMRB 1.1 g/dL 0.4-1.0 A (test code = [...] otein is not apparent.Perfor med At: [facility] [address] [place], [place] [id number] Gama Rothman MD Ph:[phone] rform ed At: [facility] [address] [place], [place] [id number] h CN MD Ph:[phone] [Automated mess age] The system [employer] generated this result transmit rosalia reference range : (). The reference r neyda was not used to interpret this result as normal/abnormal . IMMUNOELECTROPHORESIS [id number] 13:09:00 Test Item Value Reference Range Interpretation Comments IMMUNOGLOBULIN A (test 536 mg/dL 64-422 A code = AIDEN) IMMUNOGLOBULIN G (test 1323 mg/dL 586-1602 code = IMMG) IMMUNOGLOBULIN M (test 33 mg/dL 26-217 Perfo rmed At: DA code = IMMM) [facility] [place] [id number] [facility] [address] [place], [place] [id number] h CN MD Ph:[phone] rform ed At: [facility] [address] [place], [place] [id number] Kyle L MD Ph:[phone] IMMUNOFIXATION SERUM See_Comment A Polyclo nal increase (test code = IMMFIXS) detect ed in one or moreimmunoglobu penny. [Automated mess age] The system [employer] generated this result transmit rosalia reference range : (). The reference r neyda was not used to interpret this result as normal/abnormal . FREE KAPPA + LAMBDA LT [id number] 13:09:00 Test Item Value Reference Range Interpretation Comments FREE KAPPA LT CHAINS 127.9 mg/L 3.3-19.4 A (test code = KAPPAFR) FREE LAMBDA LT 90.1 mg/L 5.7-26.3 A CHAINS (test code = LAMBDAFR) FREE KAPPA/LAMBDA 1.42 0.26-1.65 Performed At: DA RATIO (test code = [facility] D [id number] KAPFRLAMFR) [facility] [address] [place], [place] [id number] h CN MD Ph:[phone] PROTEIN ELECTROPHORESIS [id number] 12:09:00 Test Item Value Reference Range Interpretation Comments TOTAL PROTEIN (test code = PROTE) ALBUMIN (test code = ALBE) QKBMU-1-TBVSXYQS (test code = A1G) BJTCH-6-HCKBBXDL (test code = A2G) BETA GLOBULIN (test code = BG) GAMMA GLOBULIN (test code = GG) M-SPIKE,SERUM (test code = MSPIKES) GLOBULIN ELECT (test code = GLOBE) ALBUMIN/GLOBULIN RATIO (test code = AGE) PROT.ELECTROPH.INTERPRETATION (test code = ELEINT) IMMUNOELECTROPHORESIS [id number] 12:09:00 Test Item Value Reference Range Interpretation Comments IMMUNOGLOBULIN A (test 536 mg/dL 64-422 A code = AIDEN) IMMUNOGLOBULIN G (test 1323 mg/dL 586-1602 code = IMMG) IMMUNOGLOBULIN M (test 33 mg/dL 26-217 Perfo rmed At: DA code = IMMM) [facility] Bastian7 777 [facility] [address] [place], [place] [id number] h CN MD Ph:[phone] rform ed At: [facility] [address] [place], [place] [id number] Gama Rothman MD Ph:[phone] IMMUNOFIXATION SERUM See_Comment A Polyclo nal increase (test code = IMMFIXS) detect ed in one or moreimmunoglobu penny. [Automated mess age] The system [employer] generated this result transmit rosalia reference range : (). The reference r neyda was not used to interpret this result as normal/abnormal . FREE KAPPA + LAMBDA LT [id number] 12:09:00 Test Item Value Reference Range Interpretation Comments FREE KAPPA LT CHAINS 127.9 mg/L 3.3-19.4 A (test code = KAPPAFR) FREE LAMBDA LT 90.1 mg/L 5.7-26.3 A CHAINS (test code = LAMBDAFR) FREE KAPPA/LAMBDA 1.42 0.26-1.65 Performed At: DA RATIO (test code = [facility] D [id number] KAPFRLAMFR) [address] [place], [place] [id number] brian BRISENO MD Ph:[phone] PROTEIN ELECTROPHORESIS [id number] 17:08:00 Test Item Value Reference Range Interpretation Comments TOTAL PROTEIN (test code = PROTE) ALBUMIN (test code = ALBE) YLCTY-9-RLZDTQHC (test code = A1G) RCOLH-7-CTCWDCNS (test code = A2G) BETA GLOBULIN (test code = BG) GAMMA GLOBULIN (test code = GG) M-SPIKE,SERUM (test code = MSPIKES) GLOBULIN ELECT (test code = GLOBE) ALBUMIN/GLOBULIN RATIO (test code = AGE) PROT.ELECTROPH.INTERPRETATION (test code = ELEINT) IMMUNOELECTROPHORESIS [id number] 17:08:00 Test Item Value Reference Range Interpretation Comments IMMUNOGLOBULIN A (test code = AIDEN) IMMUNOGLOBULIN G (test code = IMMG) IMMUNOGLOBULIN M (test code = IMMM) IMMUNOFIXATION SERUM (test code = IMMFIXS) FREE KAPPA + LAMBDA LT [id number] 17:08:00 Test Item Value Reference Range Interpretation Comments FREE KAPPA LT CHAINS 127.9 mg/L 3.3-19.4 A (test code = KAPPAFR) FREE LAMBDA LT 90.1 mg/L 5.7-26.3 A CHAINS (test code = LAMBDAFR) FREE KAPPA/LAMBDA 1.42 0.26-1.65 Performed At: DA RATIO (test code = [facility] D [id number] KAPFRLAMFR) [address] [place], [place] [id number] h FINN BRITT Ph:[phone] [id number] 13:19:00 Test Item Value Reference Range Interpretation Comments GLUBED (test code = 136 MG/DL 70-110 H Performe d by certified GLUBED) barrel line operator at [facility] [id number] 11:13:00 Test Item Value Reference Range Interpretation Comments GLUBED (test code = 64 MG/DL 70-110 L Performe d by certified GLUBED) barrel line operator at [facility] [id number] 08:45:00 Test Item Value Reference Range Interpretation Comments GLUBED (test code = 163 MG/DL 70-110 H Performe d by certified GLUBED) barrel line operator at [facility] CBC W/AUTO [id number] 04:56:00 Test Item Value Reference Range Interpretation [...] code NO = MDIFF) POC ARTERIAL BLOOD [id number] 02:47:00 Test Item Value Reference Range Interpretation Comments POC ARTERIAL BLOOD GAS PH (test 7.436 7.35-7.45 N code = POCPHA) POC ARTERIAL BLOOD GAS PCO2 (test 36.8 mmHg 35.0-45 N code = THTMLR2U) POC TCO2 ARTERIAL (test code = 25.9 POCTCO2) POC ARTERIAL BLOOD GAS PO2 (test 50.8 mmHg 80-100.0 L code = HVKZV8C) POC HCO3 ARTERIAL (test code = 24.8 MMOL/L 22.0-26.0 N WCRQYL2Z) POC BASE EXCESS (test code = 0.6 MMOL/L -4.0-4.0 N POCBEA) POC O2 SATURATION (test code = 86.9 % 90-100 L POCO2S) ABG DELIVERY (test code = CHRISTINA) Cannula ABG PATIENT RESP RATE (test code 20 /MIN = RRPATA) ABG SITE (test code = SITEA) R Brach JENNIFER'S TEST (test code = ALLENS) Positive BASIC METABOLIC [id number] 02:47:00 Test Item Value Reference Range Interpretation Comments SODIUM (test code = NA/ABG) MEQ/L 134-147 POTASSIUM (test code = K/ABG) MEQ/L 3.4-5.0 CHLORIDE (test code = CL/ABG) MEQ/L 100-108 CREATININE ABG (test code = CREAABG) mg/dL 0.6-1.0 POC IONIZED CALCIUM (test code = MMOL/L 1.12-1.32 POCCA) POC GLUCOSE (test code = POCGLU) MG/DL 70-110 [id number] 02:47:00 Test Item Value Reference Range Interpretation Comments HEMOGLOBIN (test code = HGB/ABG) G/DL 11.0-15.0 [id number] 02:47:00 Test Item Value Reference Range Interpretation Comments HEMATOCRIT (test code = HCT/ABG) % 33.0-45.0 POC LACTIC [id number] 02:47:00 Test Item Value Reference Range Interpretation Comments POC LACTIC ACID (test code = POCLAC) mmol/l 0.9-1.7 POC ARTERIAL BLOOD [id number] 02:47:00 Test Item Value Reference Range Interpretation Comments POC ARTERIAL BLOOD GAS PH (test 7.436 7.35-7.45 N code = POCPHA) POC ARTERIAL BLOOD GAS PCO2 (test 36.8 mmHg 35.0-45 N code = VNTTXJ0Q) POC TCO2 ARTERIAL (test code = 25.9 POCTCO2) POC ARTERIAL BLOOD GAS PO2 (test 50.8 mmHg 80-100.0 L code = VDXTS4W) POC HCO3 ARTERIAL (test code = 24.8 MMOL/L 22.0-26.0 N LEAURE8D) POC BASE EXCESS (test code = 0.6 MMOL/L -4.0-4.0 N POCBEA) POC O2 SATURATION (test code = 86.9 % 90-100 L POCO2S) ABG DELIVERY (test code = CHRISTINA) Cannula ABG PATIENT RESP RATE (test code 20 /MIN = RRPATA) ABG SITE (test code = SITEA) R Bola JENNIFER'S TEST (test code = ALLENS) Positive BASIC METABOLIC [id number] 02:47:00 Test Item Value Reference Range Interpretation Comments SODIUM (test code = NA/ABG) MEQ/L 134-147 POTASSIUM (test code = K/ABG) MEQ/L 3.4-5.0 CHLORIDE (test code = CL/ABG) MEQ/L 100-108 CREATININE ABG (test code = CREAABG) mg/dL 0.6-1.0 POC IONIZED CALCIUM (test code = MMOL/L 1.12-1.32 POCCA) POC GLUCOSE (test code = POCGLU) MG/DL 70-110 [id number] 02:47:00 Test Item Value Reference Range Interpretation Comments HEMOGLOBIN (test code = HGB/ABG) G/DL 11.0-15.0 [id number] 02:47:00 Test Item Value Reference Range Interpretation Comments HEMATOCRIT (test code = HCT/ABG) % 33.0-45.0 POC LACTIC [id number] 02:47:00 Test Item Value Reference Range Interpretation Comments POC LACTIC ACID (test code = 0.5 mmol/l 0.9-1.7 L POCLAC) POC ARTERIAL BLOOD [id number] 02:47:00 Test Item Value Reference Range Interpretation Comments POC ARTERIAL BLOOD GAS PH (test 7.436 7.35-7.45 N code = POCPHA) POC ARTERIAL BLOOD GAS PCO2 (test 36.8 mmHg 35.0-45 N code = SNXJCJ3R) POC TCO2 ARTERIAL (test code = 25.9 POCTCO2) POC ARTERIAL BLOOD GAS PO2 (test 50.8 mmHg 80-100.0 L code = PNBIQ9L) POC HCO3 ARTERIAL (test code = 24.8 MMOL/L 22.0-26.0 N QFWSBK6A) POC BASE EXCESS (test code = 0.6 MMOL/L -4.0-4.0 N POCBEA) POC O2 SATURATION (test code = 86.9 % 90-100 L POCO2S) ABG DELIVERY (test code = CHRISTINA) Cannula ABG PATIENT RESP RATE (test code 20 /MIN = RRPATA) ABG SITE (test code = SITEA) R Brach JENNIFER'S TEST (test code = ALLENS) Positive BASIC METABOLIC [id number] 02:47:00 Test Item Value Reference Range Interpretation [...] code = POCGLU) 168 MG/DL 70-110 H [id number] 02:47:00 Test Item Value Reference Range Interpretation Comments HEMOGLOBIN (test code = HGB/ABG) G/DL 11.0-15.0 [id number] 02:47:00 Test Item Value Reference Range Interpretation Comments HEMATOCRIT (test code = HCT/ABG) % 33.0-45.0 POC LACTIC [id number] 02:47:00 Test Item Value Reference Range Interpretation Comments POC LACTIC ACID (test code = 0.5 mmol/l 0.9-1.7 L POCLAC) POC ARTERIAL BLOOD [id number] 02:47:00 Test Item Value Reference Range Interpretation Comments POC ARTERIAL BLOOD GAS PH (test 7.436 7.35-7.45 N code = POCPHA) POC ARTERIAL BLOOD GAS PCO2 (test 36.8 mmHg 35.0-45 N code = RKSTAW5W) POC TCO2 ARTERIAL (test code = 25.9 POCTCO2) POC ARTERIAL BLOOD GAS PO2 (test 50.8 mmHg 80-100.0 L code = XFODL1R) POC HCO3 ARTERIAL (test code = 24.8 MMOL/L 22.0-26.0 N YMTJRZ7R) POC BASE EXCESS (test code = 0.6 MMOL/L -4.0-4.0 N POCBEA) POC O2 SATURATION (test code = 86.9 % 90-100 L POCO2S) ABG DELIVERY (test code = CHRISTINA) Cannula ABG PATIENT RESP RATE (test code 20 /MIN = RRPATA) ABG SITE (test code = SITEA) R Bola JENNIFER'S TEST (test code = ALLENS) Positive BASIC METABOLIC [id number] 02:47:00 Test Item Value Reference Range Interpretation [...] code = POCGLU) 168 MG/DL 70-110 H [id number] 02:47:00 Test Item Value Reference Range Interpretation Comments HEMOGLOBIN (test code = HGB/ABG) 10.1 G/DL 11.0-15.0 L [id number] 02:47:00 Test Item Value Reference Range Interpretation Comments HEMATOCRIT (test code = HCT/ABG) % 33.0-45.0 POC LACTIC [id number] 02:47:00 Test Item Value Reference Range Interpretation Comments POC LACTIC ACID (test code = 0.5 mmol/l 0.9-1.7 L POCLAC) POC ARTERIAL BLOOD [id number] 02:47:00 Test Item Value Reference Range Interpretation Comments POC ARTERIAL BLOOD GAS PH (test 7.436 7.35-7.45 N code = POCPHA) POC ARTERIAL BLOOD GAS PCO2 (test 36.8 mmHg 35.0-45 N code = TQZVLL9K) POC TCO2 ARTERIAL (test code = 25.9 POCTCO2) POC ARTERIAL BLOOD GAS PO2 (test 50.8 mmHg 80-100.0 L code = UAZLO4O) POC HCO3 ARTERIAL (test code = 24.8 MMOL/L 22.0-26.0 N TJHUEO2W) POC BASE EXCESS (test code = 0.6 MMOL/L -4.0-4.0 N POCBEA) POC O2 SATURATION (test code = 86.9 % 90-100 L POCO2S) ABG DELIVERY (test code = CHRISTINA) Cannula ABG PATIENT RESP RATE (test code 20 /MIN = RRPATA) ABG SITE (test code = SITEA) R Brach JENNIFER'S TEST (test code = ALLENS) Positive BASIC METABOLIC [id number] 02:47:00 Test Item Value Reference Range Interpretation [...] code = POCGLU) 168 MG/DL 70-110 H [id number] 02:47:00 Test Item Value Reference Range Interpretation Comments HEMOGLOBIN (test code = HGB/ABG) 10.1 G/DL 11.0-15.0 L [id number] 02:47:00 Test Item Value Reference Range Interpretation Comments HEMATOCRIT (test code = HCT/ABG) 30 % 33.0-45.0 L POC LACTIC [id number] 02:47:00 Test Item Value Reference Range Interpretation Comments POC LACTIC ACID (test code = 0.5 mmol/l 0.9-1.7 L POCLAC) [id number] 00:37:00 Test Item Value Reference Range Interpretation Comments GLUBED (test code = 203 MG/DL 70-110 H Performe d by certified GLUBED) barrel line operator at [facility] [id number] 17:37:00 Test Item Value Reference Range Interpretation Comments GLUBED (test code = 148 MG/DL 70-110 H Performe d by certified GLUBED) barrel line operator at [facility] - XR CHEST 2 [id number] 14:27:00 [facility] : 1940 Sex: F FAX: Norberto Schmidt [phone] [place]: St: ADM FAX: iBjal Nguyễn MD [phone] FAX: Luda Fenton MD [phone] Name: CARLITA HERNANDEZ [facility] : 1940 Age/S: 80/F [address] [place] [address] Unit #: [id number] Loc: [address] [place] [address] Phys: Bijal Nguyễn MD Acct: [id number] Dis Date: Status: ADM IN PHONE #: [phone] Exam Date: 02/24/20211413 FAX #: [phone] Reason: hypoxia EXAMS: CPT CODE: [id number] XR CHEST 2 V 07721 Clinical Indication: Hypoxia. Comparison:02/23/2021. Impression: Chest, single view. 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 Persistent, though improved bilateral coarse pulmonary opacities. No new pleural effusion or pneumothorax. Cardiac silhouette is of normal size. No acute osseous abnormality. SL: [id number] at 1427 Reported and signed by: Kayla Leal M.D. CC: Norberto James MD; Bijal Nguyễn MD; Luda Kruse MD Technologist: Shaina Clement RT(He) Trnscrd Date/Time/By: 02/24/2021 (1423) : By: [email or web address] Orig Print D/T: S: 02/24/2021 (6948) PAGE 1 Signed [id number] 12:00:00 Test Item Value Reference Range Interpretation Comments GLUBED (test code = 191 MG/DL 70-110 H Performe d by certified GLUBED) barrel line operator at [facility] CBC W/AUTO [id number] 10:43:00 Test Item Value Reference Range Interpretation [...] (test code NO = MDIFF) CBC W/AUTO [id number] 10:41:00 Test Item Value Reference Range Interpretation [...] REQUIRED (test code = MDIFF) COMPREHENSIVE METABOLIC [id number] 07:58:00 Test Item Value Reference Range Interpretation [...] 20-125 N TOTAL (test code = ALKP) [id number] 06:32:00 Test Item Value Reference Range Interpretation Comments GLUBED (test code = 193 MG/DL 70-110 H Performe d by certified GLUBED) barrel line operator at [facility] [id number] 05:58:00 Test Item Value Reference Range Interpretation Comments GLUBED (test code = 195 MG/DL 70-110 H Performe d by certified GLUBED) barrel line operator at [facility] [id number] 05:28:00 Test Item Value Reference Range Interpretation Comments GLUBED (test code = 191 MG/DL 70-110 H Performe d by certified GLUBED) barrel line operator at [facility] - XR CHEST 1 [id number] 18:20:00 [facility] : 1940 Sex: F FAX: Bekah Wan [phone] [place]: St: ADM FAX: Luda Fenton MD [phone] ----- Name: CARLITA HERNANDEZ [facility] : 1940 Age/S: 80/F [address] [place] [address] Bl Unit #: [id number] [place]: [place] [address] Phys: Bekah WanP Acct: [id number] Dis Date: Status: ADM IN PHONE #: [phone] Exam Date: 02/23/20211814 FAX #: [phone] Reason: POST WATCHMAN EXAMS: CPT CODE: [id number] XR CHEST 1 V 14443 Portable single view AP chest INDICATION: Post watchman placement Comparison:02/22/2020 chest x-ray FINDINGS: The cardiomediastinal silhouette is [...] D/T: S: 02/23/2021 (1822) PAGE 1 Signed [id number] 14:00:00 Test Item Value Reference Range Interpretation Comments GLUBED (test code = 190 MG/DL 70-110 H Performe d by certified GLUBED) barrel line operator at [facility] [id number] 13:38:00 Test Item Value Reference Range Interpretation Comments ACT-ISTAT (test code 268 SEC 74-137 H Perform ed by certified = ACTI) barrel line operator at [facility] [id number] 13:38:00 Test Item Value Reference Range Interpretation Comments ACT-ISTAT (test code 252 SEC 74-137 H Perform ed by certified = ACTI) barrel line operator at [facility] [id number] 13:38:00 Test Item Value Reference Range Interpretation Comments ACT-ISTAT (test code 235 SEC 74-137 H Perform ed by certified = ACTI) barrel line operator at [facility] [id number] 11:19:00 Test Item Value Reference Range Interpretation Comments GLUBED (test code = 201 MG/DL 70-110 H Performe d by certified GLUBED) barrel line operator at [facility] Novel Coronavirus 2019 [id number] 10:15:00 Test Item Value Reference Range Interpretation [...] for the identification of SARS-CoV-2 RNA usingthe [employer] [place] M2000 Sy stem under the FDA Emergen cy UseAuthorizatio n. The testing is perf ormed by maria fernanda villagomez in the procedures for the [employer] [place] M2000 molecular diagnostic SARS-CoV-2 karl johnson in vitro. - XR CHEST 2 [id number] 15:44:00 [facility] : 1940 Sex: F FAX: Luda Fenton MD [phone] [place]: St: PRE Name: CARLITA CABA [facility] : 1940 Age/S: 80/F [address] [place] [address] Unit #: [id number] [place]: [place] [id number] Phys: AixaYue Acct: [id number] Dis Date: Status: PRE SDC PHONE #: [phone] Exam Date: 02/21/20214 FAX #: [phone] Reason: PRE-OP WATCHMAN EXAMS: CPT CODE: [id number] XR CHEST 2 V 93464 Clinical Indication: Atrial fibrillation. Preoperative chest radiograph. Comparison: None available. Impression: Chest, 2 views. Lungs are hyperexpanded with flattening of the diaphragm. Blunting of the costophrenic angles may represent scarring or small volume pleural fluid. No pneumothorax. Cardiac silhouette isof normal size. No acute osseous abnormality. SL: [id number] at 1544 Reported and signed by: Kayla Leal M.D. CC: Luda rKuse MD Technologist: RT Jagjit(R) Trnscrd Date/Time/By: 02/21/2021 (0502) : By: [email or web address] Orig Print D/T: S: 02/21/2021 (4526) PAGE 1 Signed ReportBASIC METABOLIC PANEL 2021-02-21 [...] code = 9.5 mg/dL 8.0-10.5 N CA) [id number] 14:40:00 Test Item Value Reference Range Interpretation Comments PREALBUMIN (test code = PREALB) 17.5 mg/dL 16.0-40.0 N PROTHROMBIN [id number] 14:36:00 Test Item Value Reference Range Interpretation [...] (to prevent recurrent infar ct). CBC W/AUTO [id number] 14:15:00 Test Item Value Reference Range Interpretation [...] (test code NO = MDIFF) CBC W/AUTO [id number] 14:14:00 Test Item Value Reference Range Interpretation [...] DIFF REQUIRED (test code = MDIFF) POCT-GLUCOSE [id number] 17:15:00 Test Item Value Reference Range Interpretation Comments POC-GLUCOSE METER 221 mg/dL 70-110 H : TESTED A T [facility] 6720 (BEAKER) (test code = [facility], 1538) 64904: Student Officer/Techni arnold ID = [id number] for TURNER SALINAS POCT-GLUCOSE [id number] 12:18:00 Test Item Value Reference Range Interpretation Comments POC-GLUCOSE METER 201 mg/dL 70-110 H : TESTED A T [facility] 6720 (BEAKER) (test code = [facility], 1538) 39316: Student Officer/Techni arnold ID = [id number] for TURNER SALINAS POCT-GLUCOSE [id number] 07:41:00 Test Item Value Reference Range Interpretation Comments POC-GLUCOSE METER 131 mg/dL 70-110 H : TESTED A T [facility] 6720 (BEAKER) (test code = [facility], 1538) 73288: Student Officer/Techni arnold ID = [id number] for TURNER SALINAS BASIC METABOLIC [id number] 06:48:00 Test Item Value Reference Range Interpretation [...] S NOT APPLICABLE FOR DIALYSIS PATIEN TS. Student Officer ID - PIAYA LB-TYPE NATRIURETIC FACTOR (BNP)2021-02-07 06:42:00 Test Item Value Reference Range Interpretation Comments B-TYPE NATRIURETIC PEPTIDE (BEAKER) 817 pg/mL 0-100 H (test code = 700) Student Officer ID - DALILA MHEPATIC FUNCTION [id number] 06:41:00 Test Item Value Reference Range Interpretation [...] (test code = 22 U/L 6-55 347) Student Officer ID - PIAYA LTROPONIN [id number] 06:37:00 Test Item Value Reference Range Interpretation [...] failure, acidosis, acute neurological disease, and persistent tachyarrhythmia.Student Officer ID - DALILA MCBC (HEMOGRAM ONLY) 2021-02-07 [...] 0-0 (BEAKER) (test code = 413) POCT-GLUCOSE [id number] 21:08:00 Test Item Value Reference Range Interpretation Comments POC-GLUCOSE METER 264 mg/dL 70-110 H : TESTED A T [facility] 6720 (BEAKER) (test code = [facility] 39083: Student Officer/Techni arnold ID = [id number] for NIRAV WOMACK POCT-GLUCOSE [id number] 16:42:00 Test Item Value Reference Range Interpretation Comments POC-GLUCOSE METER 249 mg/dL 70-110 H : TESTED A T [facility] 6720 (BEAKER) (test code = [facility], 1538) 88412: Student Officer/Techni arnold ID = [id number] for IVÁN CUELLAR POCT-GLUCOSE [id number] 13:04:00 Test Item Value Reference Range Interpretation Comments POC-GLUCOSE METER 139 mg/dL 70-110 H : TESTED A T [facility] 6720 (BEAKER) (test code = SHAJI Cutler [facility], 1538) 66578: Student Officer/Techni arnold ID = [id number] for IVÁN CUELLAR POCT-GLUCOSE [id number] 08:04:00 Test Item Value Reference Range Interpretation Comments POC-GLUCOSE METER 111 mg/dL 70-110 H : TESTED A T [facility] 6720 (BEAKER) (test code = [facility] He [facility], 1538) 11426: Student Officer/Techni arnold ID = [id number] for IVÁN CUELLAR BASIC METABOLIC [id number] 05:32:00 Test Item Value Reference Range Interpretation [...] S NOT APPLICABLE FOR DIALYSIS PATIEN TS. Student Officer ID - DALILA EPATIC FUNCTION [id number] 05:30:00 Test Item Value Reference Range Interpretation [...] (test code = 32 U/L 6-55 347) Student Officer ID - DALILA MCBC (HEMOGRAM ONLY)2021-02-06 04:58:00 [...] 0-0 (BEAKER) (test code = 413) POCT-GLUCOSE [id number] 16:58:00 Test Item Value Reference Range Interpretation Comments POC-GLUCOSE METER 213 mg/dL 70-110 H : TESTED A T [facility] 6720 (BEAKER) (test code = [facility] [place] [place], 1538) 54929: Student Officer/Techni arnold ID = [id number] for CELENA BRANDT POCT-GLUCOSE [id number] 12:09:00 Test Item Value Reference Range Interpretation Comments POC-GLUCOSE METER 202 mg/dL 70-110 H : TESTED A T [facility] 6720 (BEAKER) (test code = SHAJI Cutler [facility], 1538) 53042: Student Officer/Techni arnold ID = [id number] for CELENA BRANDT POCT-GLUCOSE [id number] 07:45:00 Test Item Value Reference Range Interpretation Comments POC-GLUCOSE METER 81 mg/dL 70-110 : TESTED A T [facility] 6720 (BEAKER) (test code = [facility], 1538) 54235: Student Officer/Techni arnold ID = [id number] for CELENA BRANDT BASIC METABOLIC [id number] 04:54:00 Test Item Value Reference Range Interpretation [...] S NOT APPLICABLE FOR DIALYSIS PATIEN TS. Student Officer ID - [id number] 04:45:00 Test Item Value Reference Range Interpretation Comments MAGNESIUM (BEAKER) (test code = 1.8 mg/dL 1.6-2.6 627) Student Officer ID - [id number] 04:45:00 Test Item Value Reference Range Interpretation Comments PHOSPHORUS (BEAKER) (test code = 3.6 mg/dL 2.3-4.7 604) Student Officer ID - ADMINHEPATIC FUNCTION [id number] 04:45:00 Test Item Value Reference Range Interpretation [...] (test code = 35 U/L 6-55 347) Student Officer ID - ADMINCBC W/PLT COUNT & AUTO [id number] 04:28:00 Test Item Value Reference Range Interpretation [...] PERCENT (BEAKER) (test code = 2801) POCT-GLUCOSE [id number] 17:20:00 Test Item Value Reference Range Interpretation Comments POC-GLUCOSE METER 194 mg/dL 70-110 H : TESTED A T [facility] [address] (BEAKER) ([place], [address]: code = 1538) Student Officer/Techni arnold ID = [id number] for MAXIM LANDON IN POCT-GLUCOSE [id number] 11:44:00 Test Item Value Reference Range Interpretation Comments POC-GLUCOSE METER 260 mg/dL 70-110 H : TESTED A T [facility] [address] (BEAKER) ([place], [address]: code = 1538) Student Officer/Techni arnold ID = [id number] for MAXIM LANDON IN POCT-GLUCOSE [id number] 07:26:00 Test Item Value Reference Range Interpretation Comments POC-GLUCOSE METER 143 mg/dL 70-110 H : TESTED A T [facility] [address] (BEAKER) ([place], [address]: code = 1538) Student Officer/Techni arnold ID = [id number] for MAXIM LANDON IN COMPREHENSIVE METABOLIC [id number] 04:27:00 Test Item Value Reference Range Interpretation [...] S NOT APPLICABLE FOR DIALYSIS PATIEN TS. Student Officer ID - [id number] 04:08:00 Test Item Value Reference Range Interpretation Comments MAGNESIUM (BEAKER) (test code = 1.7 mg/dL 1.6-2.6 627) Student Officer ID - [id number] 04:08:00 Test Item Value Reference Range Interpretation Comments PHOSPHORUS (BEAKER) (test code = 3.7 mg/dL 2.3-4.7 604) Student Officer ID - EDASIHEPATIC FUNCTION [id number] 04:08:00 Test Item Value Reference Range Interpretation [...] (test code = 35 U/L 6-55 347) Student Officer ID - EDASICALCIUM, [id number] 03:55:00 Test Item Value Reference Range Interpretation Comments CALCIUM IONIZED (BEAKER) (test 1.09 mmol/L 1.12-1.27 L code = 698) PH, BLOOD (BEAKER) (test code = 7.48 1810) CBC W/PLT COUNT & AUTO [id number] 03:50:00 Test Item Value Reference Range Interpretation [...] PERCENT (BEAKER) (test code = 2801) POCT-GLUCOSE [id number] 22:44:00 Test Item Value Reference Range Interpretation Comments POC-GLUCOSE METER 203 mg/dL 70-110 H : Notified RN/MD: ([facility]) (test code = TESTED AT [facility] 67 153) [facility], [address]: Student Officer/Techni arnold ID = [id number] for SA SUSANNE LAWSON POCT-GLUCOSE [id number] 16:57:00 Test Item Value Reference Range Interpretation Comments POC-GLUCOSE METER 213 mg/dL 70-110 H : TESTED A T [facility] 6720 ([facility]) (test code = SHAJI Cutler [facility], 153) [address]: Student Officer/Techni arnold ID = [id number] for ZAPATA NNY, ALKA U/S, ABDOMINAL, [id number] 16:34:00Abdomen limited area? Add comment if clarification is needed.->Right upper quadrantReason for exam:->elevated LFTCH[facility] : 1940 Sex: FFINAL REPORT U/S, ABDOMINAL, LIMITED CLINICAL HISTORY: elevated LFT COMPARISON: Renal ultrasound same day TECHNIQUE: Real time grayscale and color Doppler images of the right upper quadrant abdominal organs were obtained using a curved transducer. FINDINGS: Pancreas: Partially visualized and unremarkable. Liver: Normal in size and homogeneous in echogenicity. Focal liver lesions: P unctate echogenic foci along the portal triads, likely pneumobilia. Portal vein: Normal, hepatopetalflow. Normal diameter main portal vein. Bile ducts: [...] history of biliary intervention. Otherwise normal right upperquadrant abdominal ultrasound. Signed: Minnie Tamez Verified Date/Time: 02/03/2021 16:34:01 U/S, RENAL, [id number] 12:58:00Reason for exam:->akiShould this be performed at the bedside?->Yes [facility] : 1940 Sex: FFINAL [...] Tamez Verified Date/Time: 02/03/2021 12:58:21 TITIS C [id number] 11:48:00 Test Item Value Reference Range Interpretation Comments HEPATITIS C ANTIBODY (BEAKER) Nonreactive Nonreactive (test code = 367) Student Officer ID - JING FHEPATITIS B [id number] 11:48:00 Test Item Value Reference Range Interpretation Comments HEPATITIS B CORE TOTAL ANTIBODY Nonreactive Nonreactive (BEAKER) (test code = 497) HEPATITIS B SURFACE ANTIBODY < mIU/mL <8.0 (BEAKER) (test code = 647) HEPATITIS B SURFACE ANTIGEN (2) Nonreactive Nonreactive (BEAKER) (test code = 2585) Student Officer ID - JING SHEND, CHEST, 1 VIEW, NON [id number] 11:33:00Reason for exam:->sobShould this be performed at the bedside?->Yes [facility] : 1940 Sex: FFINAL REPORT CLINICAL HISTORY: sob TECHNIQUE: 1 view of the chest COMPARISON: 01/31/2021 IMPRESSION: There are no focal infiltrates or pleural effusions. The cardiomediastinal silhouette is within normal limits for size. The visualized bones are intact. Signed: Davion Rivera MDReportVerified Date/Time: 02/03/2021 11:33:20 Reading Location: [facility] Radiology Reading Room POCT- GLUCOSE [id number] 11:21:00 Test Item Value Reference Range Interpretation Comments POC-GLUCOSE METER 188 mg/dL 70-110 H : Notified RN/: SAMEERA) (test code = TESTED AT [facility] 6720 1538) [facility], [address]: Student Officer/Techni arnold ID = [id number] for MERCADO, [facility] POCT-GLUCOSE [id number] 07:26:00 Test Item Value Reference Range Interpretation Comments POC-GLUCOSE METER 122 mg/dL 70-110 H : Notified RN/: (GABRIELA) (test code = TESTED AT [facility] 6720 1538) [facility], [address]: Student Officer/Techni arnold ID = [id number] for MERCADO, ST EFANY COMPREHENSIVE METABOLIC [id number] 05:22:00 Test Item Value Reference Range Interpretation [...] S NOT APPLICABLE FOR DIALYSIS PATIEN TS. Student Officer ID - DALILA MB-TYPE NATRIURETIC FACTOR (BNP)2021-02-03 05:05:00 Test Item Value Reference Range Interpretation Comments B-TYPE NATRIURETIC PEPTIDE 2229 pg/mL 0-100 H (BEAKER) (test code = 700) Student Officer ID - DALILA [id number] 05:02:00 Test Item Value Reference Range Interpretation Comments MAGNESIUM (BEAKER) (test code = 1.6 mg/dL 1.6-2.6 627) Student Officer ID - DALILA [id number] 05:02:00 Test Item Value Reference Range Interpretation Comments PHOSPHORUS (BEAKER) (test code = 4.1 mg/dL 2.3-4.7 604) Student Officer ID - DALILA MCALCIUM, [id number] 04:39:00 Test Item Value Reference Range Interpretation Comments CALCIUM IONIZED (BEAKER) (test 1.14 mmol/L 1.12-1.27 code = 698) PH, BLOOD (BEAKER) (test code = 7.48 1810) CBC W/PLT COUNT & AUTO [id number] 04:38:00 Test Item Value Reference Range Interpretation [...] PERCENT (BEAKER) (test code = 2801) POCT-GLUCOSE [id number] 21:22:00 Test Item Value Reference Range Interpretation Comments POC-GLUCOSE METER 165 mg/dL 70-110 H : TESTED A T [facility] 6720 (BEAKER) (test code = SHAJI CAST [place], 1538) [address]: Student Officer/Techni arnold ID = [id number] for PH ILIP, JA URINALYSIS W/ [id number] 21:08:00 Test Item Value Reference Range Interpretation [...] 516) SOURCE(BEAKER) (test code = Urine, Voided 7283) Student Officer ID - [auto]Student Officer ID - techCREATININE, RANDOM [id number] 21:08:00 Test Item Value Reference Range Interpretation Comments CREATININE URINE (BEAKER) (test 38.0 mg/dL code = 375) Reference Range: No NormalsOperator ID - BSPROTEIN, RANDOM [id number] 21:08:00 Test Item Value Reference Range Interpretation Comments PROTEIN, URINE (BEAKER) (test code = 78 mg/dL 0-14 H 1569) Student Officer ID - BSPOCT-GLUCOSE [id number] 17:47:00 Test Item Value Reference Range Interpretation Comments POC-GLUCOSE METER 128 mg/dL 70-110 H : TESTED A T [facility] 6720 (BEAKER) (test code = [facility], 153) [address]: Student Officer/Techni arnold ID = [id number] for ZAPATA NNY, ALKA [id number] 13:18:00 Test Item Value Reference Range Interpretation Comments ACTIVATED CLOTTING TIME 263 sec : 74 -137 seconds, (BEAKER) (test code = Baseli ne: TESTED AT 441) [facility] 6720 [facility], [facility] 30: Student Officer/Techni aronld ID = [id number] for At Nazario hardenn [id number] 12:55:00 Test Item Value Reference Range Interpretation Comments ACTIVATED CLOTTING TIME 285 sec : 74 -137 seconds, (BEAKER) (test code = Baseli ne: TESTED AT 441) [facility] 6720 [facility], [facility] 30: Student Officer/Techni arnold ID = [id number] for CO NDE, LEBRON POCT-GLUCOSE [id number] 12:08:00 Test Item Value Reference Range Interpretation Comments POC-GLUCOSE METER 151 mg/dL 70-110 H : TESTED A T [facility] 6720 (BEAKER) (test code = [facility], 153) [address]: Student Officer/Techni arnold ID = [id number] for ZAPATA NNY, ALKA POCT-GLUCOSE [id number] 08:00:00 Test Item Value Reference Range Interpretation Comments POC-GLUCOSE METER 209 mg/dL 70-110 H : TESTED A T [facility] 6720 (BEAKER) (test code = [facility], 153) [address]: Student Officer/Techni arnold ID = [id number] for ALKA PIERCE TROPONIN [id number] 07:08:00 Test Item Value Reference Range Interpretation Comments TROPONIN I (BEAKER) (test code = 5.61 ng/mL 0.00-0.03 HH 397) Troponin I (TnI) [...] failure, acidosis, acute neurological disease, and persistent tachyarrhythmia.Student Officer ID - PIAYA LBASIC METABOLIC [id number] 06:41:00 Test Item Value Reference Range Interpretation [...] S NOT APPLICABLE FOR DIALYSIS PATIEN TS. Student Officer ID - PIAYA [id number] 06:29:00 Test Item Value Reference Range Interpretation [...] 0-0 (BEAKER) (test code = 413) TROPONIN [id number] 23:15:00 Test Item Value Reference Range Interpretation [...] failure, acidosis, acute neurological disease, and persistent tachyarrhythmia.Student Officer ID - BSPOCT-GLUCOSE METER 2021-02-01 20:47:00 Test Item Value Reference Range Interpretation Comments POC-GLUCOSE METER 304 mg/dL 70-110 H : TESTED Violeta T [facility] 6720 (BEAKER) (test code = SHAJI Cutler [place], 1538) [address]: Student Officer/Techni arnold ID = [id number] for JA CAAL POCT-GLUCOSE [id number] 17:53:00 Test Item Value Reference Range Interpretation Comments POC-GLUCOSE METER 182 mg/dL 70-110 H : TESTED A T [place] [address] ([facility]) (test code = [facility], 1538) [address]: Student Officer/Techni arnold ID = [id number] for KIM PULIDO [id number] 16:54:00 Test Item Value Reference Range Interpretation Comments ACTIVATED CLOTTING TIME 323 sec : 74 -137 seconds, (BEAKER) (test code = Baseli ne: TESTED AT 441) [address], [facility] 30: Student Officer/Techni arnold ID = [id number] for JACOBO GARCES [id number] 16:23:00 Test Item Value Reference Range Interpretation Comments ACTIVATED CLOTTING TIME 285 sec : 74 -137 seconds, (BEAKER) (test code = Baseli ne: TESTED AT 441) [address], [facility] 30: Student Officer/Techni arnold ID = [id number] for JOAQUIN PARKER [id number] 15:59:00 Test Item Value Reference Range Interpretation Comments ACTIVATED CLOTTING TIME 224 sec : 74 -137 seconds, (BEAKER) (test code = Baseli ne: TESTED AT 441) [address], [facility] 30: Student Officer/Techni arnold ID = [id number] for JOAQUIN PARKER TROPONIN [id number] 13:53:00 Test Item Value Reference Range Interpretation Comments TROPONIN I ([facility]) (test code = 0.65 ng/mL 0.00-0.03 [facility]) Troponin I (TnI) levels must be [...] failure, acidosis, acute neurological disease, and persistent tachyarrhythmia.Student Officer ID - JING [id number] 13:30:00 Test Item Value Reference Range Interpretation Comments PARTIAL THROMBOPLASTIN TIME 24.9 seconds 22.5-36.0 (BEAKER) (test code = 760) POCT-GLUCOSE [id number] 12:15:00 Test Item Value Reference Range Interpretation Comments POC-GLUCOSE METER 176 mg/dL 70-110 H : TESTED Violeta James [facility] 6720 (BEAKER) (test code = [place], 1538) [address]: Student Officer/Techni arnold ID = [id number] for Jose Luis Edwards HEMOGLOBIN [id number] 10:18:00 Test Item Value Reference Range Interpretation Comments HEMOGLOBIN A1C (BEAKER) (test code = 10.9 % 4.3-6.1 H 368) BASIC METABOLIC [id number] 10:09:00 Test Item Value Reference Range Interpretation [...] S NOT APPLICABLE FOR DIALYSIS PATIEN TS. Student Officer ID - JING FLIPID [id number] 10:08:00 Test Item Value Reference Range Interpretation [...] Borderline 130-159 High 160-189 Very High >=190 Student Officer ID Gayle CH FPOCT-GLUCOSE [id number] 08:09:00 Test Item Value Reference Range Interpretation Comments POC-GLUCOSE METER 156 mg/dL 70-110 H : TESTED A T [facility] 6720 ([facility]) (test code = SHAJI Cutler [facility], 1538) [address]: Student Officer/Techni arnold ID = [id number] for Jose Luis Edwards TROPONIN [id number] 07:21:00 Test Item Value Reference Range Interpretation Comments TROPONIN I ([facility]) (test code = 0.85 ng/mL 0.00-0.03 397) [...] failure, acidosis, acute neurological disease, and persistent tachyarrhythmia.Student Officer ID - DALILA MB-TYPE NATRIURETIC FACTOR (BNP)2021-02-01 07:17:00 Test Item Value Reference Range Interpretation Comments B-TYPE NATRIURETIC PEPTIDE (AKER) 204 pg/mL 0-100 H (test code = 700) Student Officer ID - DALILA [id number] 06:55:00 Test Item Value Reference Range Interpretation [...] 0-0 (BEAKER) (test code = 413) POCT-GLUCOSE [id number] 23:35:00 Test Item Value Reference Range Interpretation Comments POC-GLUCOSE METER 232 mg/dL 70-110 H : TESTED A T [facility] 6720 (BEAKER) (test code = [facility], 1538) [address]: Student Officer/Techni arnold ID = [id number] for Lashay Fontana TROPONIN [id number] 23:35:00 Test Item Value Reference Range Interpretation [...] failure, acidosis, acute neurological disease, and persistent tachyarrhythmia.Student Officer ID - DBBASIC METABOLIC PANEL 2021-01-31 23:32:00 [...] S NOT APPLICABLE FOR DIALYSIS PATIEN TS. Student Officer ID - [id number] 22:44:00 Test Item Value Reference Range Interpretation [...] = 413) RAD, CHEST, 1 VIEW, NON [id number] 21:59:00Reason for exam:->shortness of breathShould this be performed at the bedside?->Yes [facility] : 1940 Sex: FFINAL [...] pneumothorax. No acute osseous abnormality. Signed: [facility] Verified Date/Time: 01/31/2021 21:59:25 CD-WqS-5 (COVID-19) RNA [Presence] in Respiratory specimen by SHERI with probe [id number] 23:06:42 Test Item Value Reference Range Interpretation Comments SARS-CoV-2 (COVID-19) RNA Not detected Not-Detected [Presence] in Respiratory specimen by SHERI with probe detection (test code = 04291-3) [facility] [id number] 08:39:00 Test Item Value Reference Range Interpretation Comments POC-GLUCOSE METER 113 mg/dL 70-110 H TESTED AT [facility] 7200 (GABRIELA) (test code [place] [address] [address]aziz [place] = 1538) [place] [address] Notes Date/Time Note Provider Source 2021-03-16 12:47:00-00:00 [id number] [place] [address] PATIENT NAME: CARLITA HERNANDEZ ADMIT DATE: 02/23/21 ACCOUNT NO: [id number] ROOM NO: G.3397 AGE: 80 REPORT TYPE: eTRANSESOPHAGEAL ECHO REPORT SEX: F ADMITTING PHYSICIAN:Luda Kruse MD ATTENDING PHYSICIAN:Norberto James MD *[place] [address] Transesophageal Echocardiogram for Chandni Patient: Carlita Heranndez Study Date: 02/23/2021 BP: Location: [facility] URN: [id number] 6180 : 1940 Age: 80 Height: / Gender: F Weight: / BMI/BSA: / *Ordering Physician: * Luda Kruse *Interpreting Physician: Gurmeet Woodall MD Study data: Transesophageal Echocardiogram for Helio ramachandran. Consent: The risks, benefits, and alternatives to the procedu re and sedation were explained to the patient and informed consent wa s obtained. Procedure: Initial setup: The patient was brought to the [facility] in the fasting state.Intravenous access was obtained. Surface E CG leads, blood pressure measurements, and pulse oximetric signals were m onitored. Sedation. Deep sedation was administered by anesthesiology mckenna valenzuela. Transesophageal echocardiography was performed. A transesophagea l probe was inserted by the anesthesiologist. Images were obtained using a [employer]iant cardiac ultrasound machine. Study completion: The patient tolerated the procedure well. There were no complications. Findings Conclusions Summary: 1. Study data: Transesophageal Echocardiogram fo he Tariq. The patient PATIENT NAME: CARLITA HERNANDEZ ACCOUNT #: G [id number] tolerated the procedure well. 2. Procedure narrative: Transesophageal echocard iography was performed. A transesophageal probe was inserted by the [facility] sthesiologist. Images were obtained using a [employer] cardiac ultrasound mac carlos. Prepared and electronically signed by Aixa Woodall MD 03/16/2021 12:47 Electronically Signed by Luda Kruse MD on at 1248 PATIENT NAME: CARLITA HERNANDEZ ACCOUNT #: G [id number] 2021-02-25 10:29:00-00:00 [facility]L [facility] Discharge Summary REPORT#:[id number] REPORT STATUS: Signed DATE:02/25/21 TIME: 1029 PATIENT: CARLITA HERNANDEZ UNIT #: [id number] ROOM/BED: 3340-1 : 39 AGE: 80 SEX: F ATTEND: Shayla James MD ADM AUTHOR: Bijal Nguyễn MD * ALL edits or amendments must be made on the The Switch/computer document * General Information Discharge date: 02/25/21 [...] GI: soft, non-tender, no guarding, no rebound Neuro/ADVERTISING LAYOUT WORKER: alert, oriented X 3 Discharge Instructions PCP [...] MD on 0 02/25/21 at 1308 RPT #:[id number] END OF REPORT 2021-02-25 10:28:00-00:00 [facility] ([facility] Hospitalist Progress Note REPORT#:[id number] REPORT STATUS: Signed DATE:02/25/21 TIME: 1028 PATIENT: CARLITA HERNANDEZ UNIT #: [id number] ROOM/BED: [address] : 39 AGE: 80 SEX: F ATTEND: Shayla James MD ADM AUTHOR: Bijal Nguyễn MD * ALL edits or amendments must be made on the The Switch/CDP document * Subjective Chief Complaint: f/u s/p [...] 15 139/68 0.0 97 Room air 02/25 07 36.6 93 15 171/79 0.0 98 Nasal cannula 02/25 422 36.4 96 18 153/72 98.9 95 02/25 0251 97 Nasal 2 cannula 02/24 2301 98 155/76 102.2 93 02/24 2245 Nasal 2 cannula 02/25 2224 36.6 93 18 138/71 93.2 93 02/24 2049 36.7 90 18 124/71 88.4 97 04/15 2007 36.6 91 20 124/68 86.6 96 [...] soft, no distention Musculoskeletal: no CVA tenderness Neuro/ADVERTISING LAYOUT WORKER: alert, oriented X 3, CNII-XII intact Lymphatics: [...] 02/25 02/24 02/24 1053 0725 0242 2331 1717 Chemistry POC Creatinine (0.6 - 1.0 mg/dL) [...] % (Auto) (14.0 - 32.0 %) 19.4 [place] % (Auto) (4.8 - 9.0 %) 10.3 H Eos % (Auto) (0.3 - 3.7 %) 8.0 H Baso % (Auto) (0.0 - 2.0 %) 0.5 Neut # (Auto) (2.0 - 7.6 x10 3/uL) 3.93 Lymph # (Auto) (1.0 - 3.8 x10 3/uL) 1.24 [place] # (Auto) (0.1 - 0.8 x10 3/uL) [...] RADIOLOGY - XR CHEST 2 V 02/24 1244 Report Impression - Status: SIGNED Entered: 02/24/2021 3540 Impression: Chest, single view. Left atrial appe ndage occlusion device is in place. Persistent, though improved bilateral coarse pulmonary opacities. No new pleural effusion or pneumothorax. Cardiac silhouette is of normal size. No acute o sseous abnormality. SL: [id number] Impression By: [email or web address] - Kayla Leal M.D. [...] MD on 0 02/25/21 at 1307 RPT #:[id number] END OF REPORT 2021-02-25 10:26:00-00:00 [facility] ([facility]) DT PROGRESS NOTE REPORT#:[id number] REPORT STATUS: Signed DATE:02/25/21 TIME: 1026 PATIENT: CARLITA HERNANDEZ UNIT #: [id number] ROOM/BED: [place] [address] : 39 AGE: 80 SEX: F ATTEND: Shayla James MD ADM AUTHOR: Bekah Wan * ALL edits or amendments must be made on the The Switch/computer document * Progress Note Progress Note Cardiology/Structural heart Progress note Patient seen and examined no acute distress. Pat ient denies any complaints at this time. Patient [...] 02/25 02/24 02/24 1053 0725 0242 2331 1717 Chemistry POC Creatinine (0.6 - 1.0 mg/dL) [...] % (Auto) (14.0 - 32.0 %) 19.4 [place] % (Auto) (4.8 - 9.0 %) 10.3 H Eos % (Auto) (0.3 - 3.7 %) 8.0 H Baso % (Auto) (0.0 - 2.0 %) 0.5 Neut # (Auto) (2.0 - 7.6 x10 3/uL) 3.93 Lymph # (Auto) (1.0 - 3.8 x10 3/uL) 1.24 [place] # (Auto) (0.1 - 0.8 x10 3/uL) [...] f breath lightheadedness or dizziness to her em physician. Electronically Signed by Bekah Wan on 0 03/11/21 at 1247 RPT #:[id number] END OF REPORT 2021-02-25 10:26:00-00:00 [facility] ([facility]) DT PROGRESS NOTE REPORT#:[id number] REPORT STATUS: Signed DATE:02/25/21 TIME: 1026 PATIENT: CARLITA HERNANDEZ UNIT #: [id number] ROOM/BED: [place] [address] : 39 AGE: 80 SEX: F ATTEND: Shayla James MD ADM AUTHOR: Bekah Wan * ALL edits or amendments must be made on the The Switch/computer document * See Addendum Progress Note Progress [...] 02/25 02/25 02/24 02/24 1053 0725 0242 8414 2520 Chemistry POC Creatinine (0.6 - 1.0 mg/dL) [...] % (Auto) (14.0 - 32.0 %) 19.4 [place] % (Auto) (4.8 - 9.0 %) 10.3 H Eos % (Auto) (0.3 - 3.7 %) 8.0 H Baso % (Auto) (0.0 - 2.0 %) 0.5 Neut # (Auto) (2.0 - 7.6 x10 3/uL) 3.93 Lymph # (Auto) (1.0 - 3.8 x10 3/uL) 1.24 [place] # (Auto) (0.1 - 0.8 x10 3/uL) [...] f breath lightheadedness or dizziness to her em physician. Electronically Signed by Bekah Wan on 0 03/11/21 at 1247 Addendum 1: 03/30/21 1231 by Sergey Alatorre MD I have seen and examined the pt, I Agree with th e findings and plan as documented by Bekah Wan. Electronically Signed by Sergey Alatorre MD on at 1232 RPT #:[id number] END OF REPORT 2021-02-24 18:49:00-00:00 [id number] [address] PATIENT NAME: CARLITA HERNANDEZ ADMIT DATE: 02/23/21 ACCOUNT NO: [id number] ROOM NO: G.3397 AGE: 80 REPORT TYPE: [...] Watchman procedure, 02/21. CURRENT MEDICATIONS: As per JAN. ALLERGIES: SULFA. FAMILY HISTORY: No history of malignancies or he matological disorder. SOCIAL HISTORY: Former smoker. No alcohol or ill icit drug use currently. REVIEW OF SYSTEMS: A 14-point review of systems noted to be negative unless otherwise mentioned in HPI. PATIENT NAME: CARLITA HERNANDEZ ACCOUNT #: G [id number] PHYSICAL EXAMINATION: VITAL SIGNS: Blood pressure 126/61, [...] appendage occlusion device in place. ASSESSMENT: 1. Bppqd-ce-sbfhuci normal to macrocytic anemia - multifactorial secondary [...] PATIENT NAME: CARLITA HERNANDEZ ACCOUNT #: G [id number] Conf#: [id number]#: [id number] Authenticated by Pietro Jarrell MD On 03/28/2021 05:15:19 PM Electronically Signed by Pietro Jarrell MD on at 1715 PATIENT NAME: CARLITA HERNANDEZ ACCOUNT #: G [id number] 2021-02-24 18:29:00-00:00 [id number] [place] [address] PATIENT NAME: CARLITA HERNANDEZ ADMIT DATE: 02/23/21 ACCOUNT NO: [id number] ROOM NO: [facility] AGE: 80 REPORT TYPE: eECHOCARDIOGRAM REPORT SEX: F ADMITTING PHYSICIAN:Luda Kruse MD ATTENDING PHYSICIAN:Norberto James MD *[address] [place] [address] Limited Transthoracic Echocardiogram Patient: Carlita Hernandez Study Date: 02/24/2021 BP: 115 / 64 Location: [facility] URN: [id number] 6180 : 1940 Age: 80 Height: 63.8 in / 162 cm Gender: F Weight: 11 8.8 lb / 54 kg BMI/BSA: 20.6 kg/m 2 / 1.56 m 2 *Ordering Physician: * Sergey Alatorre MD *Interpreting Physician: * Sergey Alatorre MD *[place]raper[place] Counselor: * NÉSTOR Francis Indications: EVAL EFFUSION. Study [...] PATIENT NAME: CARLITA HERNANDEZ ACCOUNT #: G [id number] Right ventricle Value Ref Pressure, S 44 [...] PATIENT NAME: CARLITA HERNANDEZ ACCOUNT #: G [id number] 2021-02-24 12:44:00-00:00 [facility] ([facility]) Hospitalist Progress Note REPORT#:[id number] REPORT STATUS: Signed DATE:02/24/21 TIME: 1244 PATIENT: CARLITA HERNANDEZ UNIT #: [id number] ROOM/BED: [place] [address] : 39 AGE: 80 SEX: F ATTEND: Shayla James MD ADM AUTHOR: Bijal Nguyễn MD * ALL edits or amendments must be made on the The Switch/computer document * Subjective Chief Complaint: f/u s/p [...] soft, no distention Musculoskeletal: no CVA tenderness Neuro/ADVERTISING LAYOUT WORKER: alert, oriented X 3, CNII-XII intact Lymphatics: [...] % (Auto) (14.0 - 32.0 %) 17.8 [place] % (Auto) (4.8 - 9.0 %) 9.5 H Eos % (Auto) (0.3 - 3.7 %) 7.8 H Baso % (Auto) (0.0 - 2.0 %) 0.6 Neut # (Auto) (2.0 - 7.6 x10 3/uL) 4.14 Lymph # (Auto) (1.0 - 3.8 x10 3/uL) 1.16 [place] # (Auto) (0.1 - 0.8 x10 3/uL) [...] Report Impression - Status: SIGNED Entered: 02/23/2021 6196 IMPRESSION: 1. Watchman device placement. 2. Interval development of mild diffuse pulmonar y opacities with persistent small right pleural effusion. Finding s may be exaggerated by portable technique. Erect PA and lateral depa rtmental radiographs can be obtained to better evaluate as clinically indicated. SL: SG-H Impression By: [email or web address] - Dario Pelaez M.D. Diagnosis, Assessment Plan [...] MD on 0 02/24/21 at 1253 RPT #:[id number] END OF REPORT 2021-02-24 11:07:00-00:00 HC[facility]L [facility] Cardiology Progress Note REPORT#:[id number] REPORT STATUS: Signed DATE:02/24/21 TIME: 1107 PATIENT: CARLITA HERNANDEZ SHREVEPORT UNIT #: [id number] ROOM/BED: [facility]0-1 : 39 AGE: 80 SEX: F ATTEND: Shayla James MD ADM AUTHOR: Bekha Wan * ALL edits or amendments must be made on the The Switch/CDP document * Subjective Chief Complaint: Post Watchman [...] HCl 0 .STK-MED ONE .ROUTE (DC) Rocuronium [place] 0 .STK-MED ONE IV (DC) Sodium Chloride [...] P Notes: * Patient with paroxysmal at ria fibrillation, chads vasc score of 7 , [...] * Right groin suture removed by this BRASS MOLDER HELPER. no infe ction, bleeding, or hematoma. Dermabond [...] Wan on 0 02/25/21 at 0820 RPT #:[id number] END OF REPORT 2021-02-24 11:07:00-00:00 [facility] REPORT#:[id number] REPORT STATUS: Signed DATE:02/24/21 TIME: 1106 PATIENT: CARLITA HERNANDEZ [place] UNIT #: [id number] ROOM/BED: [facility]-1 : 39 AGE: 80 SEX: F ATTEND: Shayla James MD ADM AUTHOR: Bekah Wan * ALL edits or amendments must be made on the The Switch/computer document * Bekah Wan 02/24/21 1107: Subjective [...] HCl 0 .STK-MED ONE .ROUTE (DC) Rocuronium [place] 0 .STK-MED ONE IV (DC) Sodium Chloride [...] * Right groin suture removed by this BRASS MOLDER HELPER. no infe ction, bleeding, or hematoma. Dermabond [...] Sergey Alatorre MD on at 1231 RPT #:[id number] END OF REPORT 2021-02-23 17:18:00-00:00 [facility]ACL [facility] ([facility]) Hospitalist History Physical REPORT#:[id number] REPORT STATUS: Signed DATE:02/23/21 TIME: 1718 PATIENT: CARLITA HERNANDEZ UNIT #: [id number] ROOM/BED: [address]: 39 AGE: 80 SEX: F ATTEND: Shayla James MD ADM AUTHOR: Schuyler Sotelo NP * ALL edits or amendments must be made on the The Switch/computer document * History of Present Illness HPI [...] normal bowel sounds Musculoskeletal: no CVA tenderness Neuro/ADVERTISING LAYOUT WORKER: alert, oriented X 3, CNII-XII intact Lymphatics: [...] NP on at 1823 at 1302 RPT #:[id number] END OF REPORT 2021-02-23 17:18:00-00:00 [facility]ACL [facility] ([facility] Hospitalist History Physical REPORT#:[id number] REPORT STATUS: Signed DATE:02/23/21 TIME: 1717 PATIENT: CARLITA HERNANDEZ UNIT #: [id number] ROOM/BED: [place] [id number] : 39 AGE: 80 SEX: F ATTEND: Shayla James MD ADM AUTHOR: Schuyler Sotelo NP * ALL edits or amendments must be made on the The Switch/computer document * History of Present Illness HPI [...] normal bowel sounds Musculoskeletal: no CVA tenderness Neuro/ADVERTISING LAYOUT WORKER: alert, oriented X 3, CNII-XII intact Lymphatics: [...] Schuyler Sotelo NP on at 1823 RPT #:[id number] END OF REPORT 2021-02-23 17:14:00-00:00 [id number] [place] [address] PATIENT NAME: CARLITA HERNANDEZ ADMIT DATE: 02/23/21 ACCOUNT NO: [id number] ROOM NO: GUILLERMO AGE: 80 REPORT TYPE: eECHOCARDIOGRAM REPORT SEX: F ADMITTING PHYSICIAN:Luda Kruse MD ATTENDING PHYSICIAN:Norberto James MD *[place] [address] Transthoracic Echocardiogram Patient: Carlita Hernandez Study Date: 02/23/2021 BP: 108 / 67 Location: [facility] URN: [id number] [id number] : 1940 Age: 80 Height: 64 in / 162.6 cm Gender: F Weight: 119 .9 lb / 54.5 kg BMI/BSA: 20.6 kg/m 2 / 1.57 m 2 *Ordering Physician: * Bekah Wan *Interpreting Physician: * Sergey Alatorre MD *[place] Counselor: * Beckie Freeman Indications: Rule out pericardial [...] no pericardial effusion. PATIENT NAME: CARLITA HERNANDEZ Measurements Left ventricle Value Ref CHARLIE, LAX [...] PATIENT NAME: CARLITA HERNANDEZ ACCOUNT #: [id number] 2021-02-23 13:56:00-00:00 [id number] [place] [address] PATIENT NAME: CARLITA CABA ADMIT DATE: 02/23/21 ACCOUNT NO: [id number] ROOM NO: GUILLERMO AGE: 80 REPORT TYPE: eELECTROCARDIOGRAM REPORT SEX: F ADMITTING PHYSICIAN:Luda Kruse MD ATTENDING PHYSICIAN:Norberto James MD Order: [id number] Test Reason : WATCHMAN Test Date/Time Stamp: [...] PATIENT NAME: CARLITA CABA ACCOUNT #: [id number] 2021-02-21 13:38:00-00:00 [id number] [place] [address] PATIENT NAME: CARLITA CABA ADMIT DATE: ACCOUNT NO: [id number] ROOM NO: AGE: 80 REPORT TYPE: eELECTROCARDIOGRAM REPORT SEX: F ADMITTING PHYSICIAN: ATTENDING PHYSICIAN:Luda Kruse MD Order: [id number] Test Reason : PRE-OP WATCHMAN Test Date/Time [...] PATIENT NAME: CARLITA CABA ACCOUNT #: [id number]
[2023-07-02 14:08] LABS: Hematocrit 35.5 % (36.0-45.0); MCV 87.5 fL (80-100); MPV 9.2 fL (7.6-11.3); Platelets 183 thou/uL (152-406); RBC Red Blood Cell Count 4.06 M/uL (3.86-4.86)
[2023-07-02 14:15] LABS: Protime INR 1.02
[2023-07-02 14:25] LABS: Potassium 4.6 mEq/L (3.5-5.1); Troponin High Sensitivity 35.3 pg/mL (<58.9)
--- NOTE | 2023-07-02 14:43 | RAD REPORT ---
EXAM DESCRIPTION: Rl Single View07/02/2023 2:03 pm CLINICAL HISTORY: Bradycardia COMPARISON: June 26, 2023 FINDINGS: Small to moderate right pleural effusion. Mild bilateral interstitial lung opacities unchanged Heart is mildly enlarged
--- NOTE | 2023-07-02 14:46 | EDPHYS ---
Physician Documentation [facility] Name: Carlita Villalobos Age: 82 yrs Sex: Female : 1940 Arrival Date: 07/02/2023 Time: 12:04 Bed 2 Private MD: Kapil Servin ED Physician Margarita Medina HPI: 07/02 12:30 This 82 yrs old Female presents to ER via Wheelchair with complaints of Weakness. aj3 12:30 Patient has been feeling tired and weak over the last few days and found to have low aj3 blood sugar today in the 40s and low heart rate in the 30s. Patient was given food by her daughter and told to come to ED by PCP.. Historical: - Allergies: 12:14 Sulfa (Sulfonamide Antibiotics); ll1 - PMHx: 12:14 Diabetes - IDDM; Hypertension; Hypothyroidism; ll1 - PSHx: 12:14 back surgery; cardiac stents; colonscopy; hysterectomy; Tonsillectomy; ll1 - Immunization history:: Client reports receiving the 2nd dose of the Covid vaccine. - Social history:: Smoking status: Patient/guardian denies using tobacco. ROS: 12:30 MS/Extremity: Negative for injury and deformity, Skin: Negative for injury, rash, and aj3 discoloration. 12:30 Constitutional: Positive for fatigue. 12:30 Cardiovascular: Negative for chest pain, orthopnea, palpitations. 12:30 Respiratory: Negative for cough, dyspnea on exertion, shortness of breath, wheezing. 12:30 Neuro: Positive for weakness, Negative for altered mental status, dizziness, loss of consciousness, seizure activity, syncope, near syncope, tingling, tremor, visual changes. Exam: 12:30 Head/Face: Normocephalic, atraumatic. Eyes: Pupils equal round and reactive to light, aj3 extra-ocular motions intact. Lids and lashes normal. Conjunctiva and sclera are non-icteric and not injected. Cornea within normal limits. Periorbital areas with no swelling, redness, or edema. Respiratory: Lungs have equal breath sounds bilaterally, clear to auscultation and percussion. No rales, rhonchi or wheezes noted. No increased work of breathing, no retractions or nasal flaring. 12:30 Skin: Warm, dry with normal turgor. Normal color with no rashes, no lesions, and no evidence of cellulitis. MS/ Extremity: Pulses equal, no cyanosis. Neurovascular intact. Full, normal range of motion. Neuro: Awake and alert, GCS 15, oriented to person, place, time, and situation. Motor strength 5/5 in all extremities. Sensory grossly intact. Normal gait. 12:30 Constitutional: The patient appears in no acute distress, alert, awake, non-toxic. 12:30 Cardiovascular: Rate: bradycardic, Rhythm: irregular, Pulses: Pulses are 2+ in right radial artery and left radial artery. Edema: 1+ edema to level of left ankle, 2+ edema to level of right ankle. 12:30 Abdomen/GI: Soft, non-tender, with normal bowel sounds. No distension or tympany. No aj3 guarding or rebound. No evidence of tenderness throughout. 13:03 ECG was reviewed by the Attending Physician. aj3 Vital Signs: 12:10 BP 161 / 65; Pulse 37; Resp 16; Temp 97.3; Pulse Ox 99% ; Weight 59.42 kg; Height 5 ft. ll1 4 in. ; Pain 0/10; 13:45 BP 133 / 53; Pulse 36; Resp 12; Pulse Ox 98% on R/A; ld1 15:41 BP 157 / 65; Pulse 35; Resp 10; Pulse Ox 99% on R/A; ld1 18:49 BP 156 / 86; Pulse 40; Resp 18; Pulse Ox 98% on R/A; ld1 12:10 Body Mass Index 22.49 (59.42 kg, 162.56 cm) ll1 12:10 Pain Scale: Adult ll1 NIH Stroke Scale Scores: 13:59 NIHSS Score: 0 bp MDM: 12:16 Patient medically screened. cp3 15:00 Data reviewed: vital signs, nurses notes, EKG, radiologic studies, plain films. aj3 Consideration of Admission/Observation Patient was admitted/placed on observation. Management of patient was discussed with the following: Primary Care Provider: Dr. Servin and Dr. Kruse ([facility]). Independent interpretation of the following test(s) in the Emergency Department EKG: See my EKG interpretation above X-Ray: My interpretation is mild opacities noted to R lung. casting machine service operator: rate is 38 beats/min, Rhythm is atrial fibrillation. Historians other than the Patient: Daughter/Son: daughter. Care significantly affected by the following chronic conditions: Hypertension, Congestive Heart Failure. Counseling: I had a detailed discussion with the patient and/or guardian regarding the historical points, exam findings, and any diagnostic results supporting the discharge/admit diagnosis, lab results, radiology results, the need for further work-up and treatment in the hospital. 17:53 ED course: Jacqueline (daughter) -- [phone]. 3 07/02 13:01 Order name: Basic Metabolic Panel; Complete Time: 14:27 3 07/02 13:01 Order name: CBC with Diff; Complete Time: 16:58 3 07/02 13:01 Order name: NT PRO-BNP; Complete Time: 14:27 3 07/02 13:01 Order name: PT-INR; Complete Time: 14:15 aj3 07/02 13:01 Order name: Troponin HS; Complete Time: 14:27 3 07/02 14:01 Order name: Glucose, Ancillary Testing; Complete Time: 14:06 EDMS 07/02 14:39 Order name: Magnesium: add-on; Complete Time: 15:48 aj3 07/02 15:53 Order name: Thyroid Stimulating Hormone EDMS 07/02 15:53 Order name: CBC with Automated Diff EDMS 07/02 15:53 Order name: CBC with Automated Diff EDMS 07/02 15:53 Order name: CBC with Automated Diff EDMS 07/02 15:53 Order name: CBC with Automated Diff EDMS 07/02 15:53 Order name: Comprehensive Metabolic Panel EDMS 07/02 15:53 Order name: Comprehensive Metabolic Panel EDMS 07/02 15:53 Order name: Comprehensive Metabolic Panel EDMS 07/02 15:53 Order name: Comprehensive Metabolic Panel EDMS 07/02 16:58 Order name: Manual Differential; Complete Time: 16:58 EDMS 07/02 18:33 Order name: Glucose, Ancillary Testing; Complete Time: 18:38 EDMS 07/02 20:18 Order name: Glucose, Ancillary Testing EDMS 07/02 13:01 Order name: XRAY Chest (1 view); Complete Time: 14:45 aj3 07/02 13:01 Order name: EKG; Complete Time: 13:02 3 07/02 15:53 Order name: CONS Physician Consult EDMS 07/02 15:53 Order name: CONS Physician Consult [facility] 07/02 15:53 Order name: 60g Consistent Carbohydrate (ADA 1800/1999) [facility] 07/02 13:01 Order name: Cardiac monitoring; Complete Time: 13:50 [facility] 13:01 Order name: EKG - Nurse/Tech; Complete Time: 13:54 [facility] 07/02 13:01 Order name: IV Saline Lock; Complete Time: 13:57 [facility] 07/02 13:01 Order name: Labs collected and sent; Complete Time: 13:57 [facility] 07/02 13:01 Order name: O2 Per Protocol; Complete Time: 13:50 [facility] 07/02 13:01 Order name: O2 Sat Monitoring; Complete Time: 13:50 [facility] 07/02 13:02 Order name: Glucose Level; Complete Time: 13:50 [facility] 07/02 15:49 Order name: Misc. Order: Hold the Metoprolol; Complete Time: 15:50 3 EC:49 Rate is 38 beats/min. Rhythm is irregular. QRS [place] is Normal. No ST changes noted. aj3 Clinical impression: Atrial Fibrillation and Slow ventricular response. Interpreted by me. Reviewed by me. Administered Medications: No medications were administered Disposition: 17:56 I reviewed the patient's care provided by Advanced Practice Provider \T\ agree w/ the cp3 diagnosis \T\ care plan. I personally saw the pt \T\ performed a substantive portion of the visit, incldng all aspects of the (History/Exam/Medical Decision Making). Disposition Summary: 07/02/23 14:45 Hospitalization Ordered Hospitalization Status: Observation aj3 Provider: Kapil Servin aj3 Condition: Stable aj3 Problem: new aj3 Symptoms: are unchanged aj3 Bed/Room Type: Standard aj3 Location: Intensive Care Unit(07/02/23 20:00) cg Room Assignment: 7-(07/02/23 20:00) cg Diagnosis - Bradycardia, unspecified aj3 Forms: - Medication Reconciliation Form aj3 - SBAR form aj3 - Leadership Thank You Letter aj3 NIH Stroke Scale - NIH Stroke Score Date: 07/02/2023 Time: 13:59 Total Score = 0 10. Dysarthria (speech clarity - read or repeat words) - 0(Normal) 11. Extinction and Inattention (visual/tactile/auditory/spatial/personal) - 0(No abnormality) 1a. Level of Consciousness (LOC) - 0(Alert) 1b. Level of Consciousness (LOC) (Month \T\ Age) - 0(Both) 1c. LOC Commands (Open \T\ Closes Eyes/Library Technician) - 0(Both) 2. Best Gaze (Lateral Gaze Paresis) - 0(Normal) 3. Visual Field Loss - 0(No visual loss) 4. Facial Palsy - 0(Normal) 5a. Left Arm: Motor (10-second hold) - 0(No drift) 5b. Right Arm: Motor (10-second hold) - 0(No drift) 6a. Left Leg: Motor (5-second hold - always test supine) - 0(No drift) 6b. Right Leg: Motor (5-second hold - always test supine) - 0(No drift) 7. Limb Ataxia (finger/nose \T\ heel/laureano - test with eyes open) - 0(Absent) 8. Sensory Loss (pinprick arms/legs/face) - 0(Normal) 9. Best Language: Aphasia (description/naming/reading) - 0(No aphasia) Initials: bp Signatures: Dispatcher [employer] Margarita Hooks MD MD cp3 Luci Humphries RN RN Sarah Rowell RN RN jl7 Brooks King RN RN ll1 Shaina Payne, JACINTO DISTILLERY LABORER aj3 Corrections: (The following items were deleted from the chart) 17:44 14:45 Telemetry/MedSurg (observation) Surjit gerard 17:44 14:45 kye gerard 19:58 17:44 [facility] ER HOLD jl7 cg 19:58 17:44 ERHOLD- jl7 cg 20:00 19:58 Telemetry/MedSurg (observation) cg 20:00 19:58 [facility]
--- NOTE | 2023-07-02 14:46 | ER ---
Nurse's Notes [facility] Name: Carlita Villalobos Age: 82 yrs Sex: Female : 1940 Arrival Date: 07/02/2023 Time: 12:04 Bed 2 Private MD: Kapil Servin Diagnosis: Bradycardia, unspecified Presentation: 07/02 12:10 Chief complaint: Patient states: Still very weak and lethargic. Just left our hospital ll1 last for kidney failure. HR 30's, blood sugar 40's. Sent in for eval. by Dr. Servin. Coronavirus screen: Vaccine status: Patient reports receiving the 2nd dose of the covid vaccine. Client denies travel out of the [place] in the last 14 days. At this time, the client does not indicate any symptoms associated with coronavirus-19. Ebola Screen: Patient denies travel to an Ebola-affected area in the 21 days before illness onset. No acute neurological deficit is noted. Initial Sepsis Screen: Does the patient meet any 2 criteria? No. Patient's initial sepsis screen is negative. Does the patient have a suspected source of infection? No. Patient's initial sepsis screen is negative. Risk Assessment: Do you want to hurt yourself or someone else? Patient reports no desire to harm self or others. Onset of symptoms was June 29, 2023. 12:10 Method Of Arrival: Wheelchair ll1 12:10 Acuity: PARSEH 2 ll1 Triage Assessment: 13:58 The onset of the patients symptoms was at an unknown time. General: Appears in no bp apparent distress. Behavior is calm, cooperative, appropriate for age. Pain: Denies pain. EENT: No deficits noted. Neuro: Reports weakness. Cardiovascular: Rhythm is sinus bradycardia. Respiratory: No deficits noted. GI: No signs and/or symptoms were reported involving the gastrointestinal system. : No signs and/or symptoms were reported regarding the genitourinary system. Derm: No deficits noted. Musculoskeletal: No deficits noted. Stroke Activation: Symptom onset > 6 hours Physician: Stroke Attending; Name: ; Notified At: ; Arrived At: Physician: Chief Stroke Resident; Name: ; Notified At: ; Arrived At: Physician: Stroke Resident; Name: ; Notified At: ; Arrived At: Physician: ED Attending; Name: ; Notified At: ; Arrived At: Physician: ED Resident; Name: ; Notified At: ; Arrived At: Historical: - Allergies: 12:14 Sulfa (Sulfonamide Antibiotics); ll1 - PMHx: 12:14 Diabetes - IDDM; Hypertension; Hypothyroidism; ll1 - PSHx: 12:14 back surgery; cardiac stents; colonscopy; hysterectomy; Tonsillectomy; ll1 - Immunization history:: Client reports receiving the 2nd dose of the Covid vaccine. - Social history:: Smoking status: Patient/guardian denies using tobacco. Screenin:00 [facility] ED Fall Risk Assessment (Adult) History of falling in the last 3 months, bp including since admission No falls in past 3 months (0 pts). Abuse screen: Denies threats or abuse. Denies injuries from another. Nutritional screening: No deficits noted. Tuberculosis screening: No symptoms or risk factors identified. Assessment: 13:59 VAN Scoring: Arm Drift: Patients demonstrates NO arm weakness. Patient is VAN Negative. bp TNKase (Tenecteplase) Screening: Contraindications: Rapidly improving condition or minor deficit:. 20:22 General: attempted to call report. nurse not avaliable. lg3 Vital Signs: 12:10 BP 161 / 65; Pulse 37; Resp 16; Temp 97.3; Pulse Ox 99% ; Weight 59.42 kg; Height 5 ft. ll1 4 in. ; Pain 0/10; 13:45 BP 133 / 53; Pulse 36; Resp 12; Pulse Ox 98% on R/A; ld1 15:41 BP 157 / 65; Pulse 35; Resp 10; Pulse Ox 99% on R/A; ld1 18:49 BP 156 / 86; Pulse 40; Resp 18; Pulse Ox 98% on R/A; ld1 12:10 Body Mass Index 22.49 (59.42 kg, 162.56 cm) ll1 12:10 Pain Scale: Adult ll1 NIH Stroke Scale Scores: 13:59 NIHSS Score: 0 bp ED Course: 12:05 Patient arrived in ED. rg4 12:06 Kapil Servin MD is Private Physician. rg4 12:13 [facility] Payne [facility] aj3 12:13 Margarita Medina MD is Attending Physician. aj3 12:14 Triage completed. ll1 12:14 Arm band placed on. ll1 13:50 Brad Little, RN is Primary Nurse. bp 13:57 Inserted saline lock: 22 gauge in right forearm, using aseptic technique. Blood bp collected. 14:00 Patient has correct armband on for positive identification. Bed in low position. Call bp light in reach. Side rails up X2. 14:05 XRAY Chest (1 view) In Process Unspecified. EDMS 14:44 Kapil Servin MD is Hospitalizing Provider. aj3 18:49 panel monitor on. Pulse ox on. NIBP on. Door closed. Noise minimized. Warm blanket ld1 given. 18:49 No provider procedures requiring assistance completed. ld1 Administered Medications: No medications were administered Medication: 18:49 VIS not applicable for this client. ld1 Outcome: 14:45 Decision to Hospitalize by Provider. aj3 21:12 Patient left the ED. lg3 NIH Stroke Scale - NIH Stroke Score Date: 07/02/2023 Time: 13:59 Total Score = 0 10. Dysarthria (speech clarity - read or repeat words) - 0(Normal) 11. Extinction and Inattention (visual/tactile/auditory/spatial/personal) - 0(No abnormality) 1a. Level of Consciousness (LOC) - 0(Alert) 1b. Level of Consciousness (LOC) (Month \T\ Age) - 0(Both) 1c. LOC Commands (Open \T\ Closes Eyes/Community Health Worker) - 0(Both) 2. Best Gaze (Lateral Gaze Paresis) - 0(Normal) 3. Visual Field Loss - 0(No visual loss) 4. Facial Palsy - 0(Normal) 5a. Left Arm: Motor (10-second hold) - 0(No drift) 5b. Right Arm: Motor (10-second hold) - 0(No drift) 6a. Left Leg: Motor (5-second hold - always test supine) - 0(No drift) 6b. Right Leg: Motor (5-second hold - always test supine) - 0(No drift) 7. Limb Ataxia (finger/nose \T\ heel/laureano - test with eyes open) - 0(Absent) 8. Sensory Loss (pinprick arms/legs/face) - 0(Normal) 9. Best Language: Aphasia (description/naming/reading) - 0(No aphasia) Initials: bp Signatures: Dispatcher [employer] Shivani Richter rg4 Brad Little, RN RN bp Judy Pascual, RN RN lg3 Brooks King, RN RN ll1 Daphne Horton RN RN ld1 Shaina Payne, TITRATOR TITRATOR aj3
--- NOTE | 2023-07-02 15:42 | P.HP ---
Certification for Inpatient Patient admitted to: Observation With expected LOS: <2 Midnights Patient will require the following post-hospital care: None Practitioner: I am a practitioner with admitting privileges, knowledge of patient current condition, hospital course, and medical plan of care. Services: Services provided to patient in accordance with Admission requirements found in Title 42 Section 412.3 of the Code of Federal Regulations Patient History Date of Service: 07/02/23 Primary Care Provider: Gareth Reason for admission: Bradycardia History of Present Illness: Patient of mine with a history of ckd stage 5. dm2, mild cognitive impairment. The patient has been having bradycardia at home with some elevated blood pressure. As she lives next door I went to check on the patient. She had a pulse of 48 bp was 173/63 Sent her to the ER. The patient has a slight increase in her creatine of 3.93 this is a slight elevation from her previous creatine on 06/28. The patient was seen by Dr. Kruse who wants to keep her for observation. As her pulse has been consistently low, this seems appropriate. Allergies Sulfa (Sulfonamide Antibiotics) Allergy (Intermediate, Verified 12/14/21 23:25) Nausea/Vomiting/flu like symptoms Home Medications: Aspirin [Aspirin EC 81 MG] 81 mg PO DAILY 12/14/21 Cholecalciferol (Vitamin D3) [Vitamin D 1000 Iu Tab] 1,000 unit PO DAILY 12/14/21 Clopidogrel Bisulfate [Plavix] 75 mg PO DAILY 12/14/21 Memantine HCl 5 mg PO DAILY 12/14/21 Metoprolol Tartrate 25 mg PO BID 12/14/21 Montelukast [Singulair] 10 mg PO DAILY 12/14/21 Fluticasone/Salmeterol [Advair Hfa 45-21 Mcg Inhaler] 1 puff IH BID 12/17/21 Albuterol Sulfate [Albuterol Sulfate Hfa] 1 puff IH Q6H PRN 03/28/23 Insulin Degludec [Tresiba Flextouch U-100] 32 unit SQ DAILY 03/28/23 Mecobalamin [B12 Active] 1,000 mcg PO DAILY 03/28/23 Amiodarone HCl [Cordarone*] 200 mg PO BID 30 Days #60 tab 03/29/23 Furosemide [Lasix] 20 mg PO DAILY 90 Days #90 tab 06/14/23 Hydralazine [Apresoline*] 10 mg PO DAILY 06/25/23 Levothyroxine Sodium 75 mcg PO DAILY 06/25/23 Pioglitazone [Actos*] 15 mg PO DAILY 06/25/23 - Past Medical/Surgical History Diabetic: Yes -: Diabetes mellitus type 2 insulin-dependent -: Hypothyroidism -: Atrial fibrillation not on chronic anti coagulation therapy -: COPD -: HTN -: History of MAC pulmonary infection -: CHF -: Anemia -: Frequent UTI's -: CKD IV (Dr. 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 - Family History Father -: Heart disease, Diabetes Notes: Sister -: Diabetes Mother -: Diabetes Brother -: Diabetes - Social History Alcohol use: Yes CD- Drugs: No Caffeine use: Yes Review of Systems 10-point ROS is otherwise unremarkable General: Weakness Physical Examination - Physical Exam General: Alert, In no apparent distress HEENT: Atraumatic, PERRLA, Mucous membr. moist/pink, EOMI, Sclerae nonicteric Neck: Supple, 2+ carotid pulse no bruit, No LAD, Without JVD or thyroid abnormality Respiratory: Clear to auscultation bilaterally, Normal air movement Cardiovascular: Regular rate/rhythm, Normal S1 S2 Gastrointestinal: Normal bowel sounds, No tenderness Musculoskeletal: No tenderness Integumentary: No rashes Neurological: Normal gait, Normal speech, Normal strength at 5/5 x4 extr, Normal tone, Normal affect Lymphatics: No axilla or inguinal lymphadenopathy - Studies Laboratory Data (last 24 hrs) 07/02/23 07/02/23 07/02/23 15:09 13:57 13:57 WBC 4.50 Hgb 11.2 L Hct 35.5 L Plt Count 183 PT 11.2 INR 1.02 Sodium Potassium BUN Creatinine Glucose Magnesium 1.9 07/02/23 13:57 WBC Hgb Hct Plt Count PT INR Sodium 131 L Potassium 4.6 BUN 86 H Creatinine 3.93 H Glucose 284 H Magnesium Assessment and Plan - Problems (Diagnosis) (1) Bradycardia Current Visit: Yes Status: Acute Plan: will put her in a tele unit. Have her seen by Dr. Lombardi (2) CKD stage 5 due to type 2 diabetes mellitus Current Visit: Yes Status: Chronic Plan: will hold the lasix. She is euvolemic at this time (3) Atrial fibrillation Onset Date: 11/15/15 Current Visit: No Status: Chronic Plan: will continue home meds Qualifiers: Atrial fibrillation type: persistent (not longstanding) Qualified Code(s): I48.19 - Other persistent atrial fibrillation; I48.1 - Persistent atrial fibril lation Discharge Plan: Home Plan to discharge in: 24 Hours - Advance Directives Does patient have a Living Will: No Does patient have a Durable POA for Healthcare: Yes - Code Status/Comfort Care Code Status Assessed: No Code Status: Full Code Physician Review: Patient Assessed, Agree with Above Assessment and Plan Critical Care: No Time Spent Managing Pts Care (In Minutes): 70
[2023-07-02 16:58] LABS: Anisocytosis 3+; Blood Morphology Comment NOTED (NOT SEEN); Platelet Estimate ADEQ; Poikilocytosis 1+
[2023-07-02] MEDS: ENOXAPARIN 30 MG/0.3 ML SQ SCH (17:00)
--- NOTE | 2023-07-02 18:08 | EKG ---
Test Date: 2023-07-02 Test Time: 12:49:05 Dot Net Developer: GIO MEASUREMENT RESULTS: Intervals: Rate: 38 ID: QRSD: 90 QT: 610 QTc: 484 [place]: P: ID: QRS: 79 T: 214 INTERPRETIVE STATEMENTS: Atrial fibrillation with slow ventricular response Low voltage QRS RSR' or QR pattern in V1 suggests right ventricular conduction delay Cannot rule out Anteroseptal infarct, age undetermined Abnormal ECG Compared to ECG 06/25/2023 11:22:29 RSR' in V1 or V2 now present Myocardial infarct finding still present Electronically Signed On 07-02-23 18:00:06 CDT by Jose C Kruse
[2023-07-02] MEDS ORDERED: ENOXAPARIN 30 MG/0.3 ML SQ ONE (18:22)
[2023-07-02] MEDS: DOCUSATE NA 100 MG CAP PO SCH (19:55)
[2023-07-02] MEDS ORDERED: DOCUSATE NA 100 MG CAP PO ONE (20:00)
--- NOTE | 2023-07-03 01:48 | CON ---
Date of Consultation: 07/02/2023 Reason For Consultation: Bradycardia. History Of Present Illness: This is an 82-year-old female with history of paroxysmal atrial fibrilla tion and advanced kidney failure, COPD, hypertension, CHF, coronary artery disease, status post statu s post multivessel PCI and diabetes, presented to the emergency room due to low blood sugar and she w as found to be severely bradycardic. Blood pressure was good and patient denies having any dizziness or syncopal episode. No chest pain. Past Medical History: As outlined above in HPI. Medications: Refer to reconciliation sheet for detailed list. Allergies: SULFA. Family History: No premature coronary artery disease or cancer. Social History: Does not smoke or use any drugs. Review of Systems: All systems reviewed are negative except as mentioned in HPI. Physical Examination: Vital Signs: Reviewed. Head and Neck: Pupils are equal, reactive to light. Intact eye movements. No JVD. No cervical lym phadenopathy. Neck: Supple. Thyroid is not enlarged. Lungs: Clear to auscultation bilaterally. No rhonchi, rales, or crackles. No accessory muscle use. Heart: Irregular. No extra sounds. Abdomen: Soft, nontender. Bowel sounds positive. No organomegaly. No masses or hernia. No rigidi ty or rebound. Extremities: No edema, clubbing, or cyanosis. Intact pulses. SKIN: No rashes. Neurologic: Alert, awake, oriented x3. No acute focal deficits appreciated. Investigations: BUN is 86, creatinine 3.9, and troponin is negative and hemoglobin is 11.2. Assessment/recommendations: 1.Atrial fibrillation with slow ventricular response. I will hold off on the metoprolol and monitor her for next 24 hours. If heart rate picks up, then she might need a lower dose of beta loren giv en the fact that she has advanced kidney disease. Now the patient is asymptomatic and maintaining go od blood pressure. Ultimately, she might need a pacemaker implantation to allow management of her at rial fibrillation. She is status post left atrial appendage closure, so she does not need anticoagul ation, just continue aspirin. 2.Coronary artery disease. No chest pain. Continue aspirin and Plavix. 3.Chronic kidney disease. Creatinine slightly higher than baseline. Recommend Nephrology evaluatio nFrancis JUNIOR/DULCE MARIA Voice ID: [id number] Report ID: [id number]
[2023-07-03] MEDS: LEVOTHYROXINE SOD 0.075 MG TAB PO SCH (06:26)
[2023-07-03 07:15] LABS: Hematocrit 32.7 % (36.0-45.0); MCV 86.7 fL (80-100); MPV 9.9 fL (7.6-11.3); Platelets 181 thou/uL (152-406); RBC Red Blood Cell Count 3.77 M/uL (3.86-4.86)
[2023-07-03 07:36] LABS: Phosphorus 5.3 mg/dL (2.5-4.9); Uric Acid 12.6 mg/dL (2.6-6.0)
[2023-07-03 07:38] LABS: Albumin 2.7 g/dL (3.4-5.0); Bilirubin Total 0.4 mg/dL (0.2-1.0); Potassium 4.5 mEq/L (3.5-5.1); Protein, Total 7.3 g/dL (6.4-8.2); Thyroid Stimulating Hormone 1.61 uIU/mL (0.358-3.740)
[2023-07-03] MEDS: MEMANTINE HCL 10 MG TABLET PO SCH (07:57)
[2023-07-03] MEDS: ASPIRIN EC 81 MG TAB PO SCH (07:57)
[2023-07-03] MEDS: HYDRALAZINE HCL 10 MG TABLET PO SCH (07:58)
[2023-07-03] MEDS: CLOPIDOGREL 75 MG TABLET PO SCH (07:58)
[2023-07-03] MEDS: CYANOCOBALAMIN 1,000 MCG TAB PO SCH (07:58)
[2023-07-03] MEDS: DOCUSATE NA 100 MG CAP PO SCH ×2 (07:58→21:00)
[2023-07-03] MEDS ORDERED: D50W 25 GM/50 ML SYRINGE IV PRN (08:03)
[2023-07-03] MEDS ORDERED: GLUCAGON 1 MG/VIAL IM PRN (08:03)
[2023-07-03] MEDS ORDERED: D10W 125 ML IV PRN (08:10)
[2023-07-03] MEDS ORDERED: HOME MED 1 EA UNK (Insulin Degludec [Tresiba Flextouch U-100] 100 UNIT/ML Insuln.Pen) SQ SCH (09:00)
[2023-07-03] MEDS ORDERED: DRISDOL (VITAMIN D=ERGOCALCIFEROL) 50000 UNIT CAP PO SCH (09:00)
[2023-07-03] MEDS ORDERED: HOME MED 1 EA UNK (Memantine Hcl [Memantine Hcl] 5 MG Tablet) PO SCH (09:00)
[2023-07-03] MEDS ORDERED: HOME MED 1 EA UNK (Mecobalamin [B12 Active] 1,000 MCG Tab.Chew) PO SCH (09:00)
[2023-07-03] MEDS ORDERED: INSULIN GLARGINE 100 UNIT/ML SQ SCH (09:00)
[2023-07-03 09:09] LABS: Hepatitis B Core Ab, Total Nonreactive (Nonreactive); Hepatitis B surface AG Interp. Nonreactive (Nonreactive)
[2023-07-03 09:21] LABS: Hepatitis B Surface Ab - Quant < 3.10 mIU/mL (<8.0)
--- NOTE | 2023-07-03 09:25 | P.PN ---
Subjective Date of Service: 07/03/23 Primary Care Provider: Gareth Chief Complaint: Bradycardia Subjective: No new changes Review of Systems 10-point ROS is otherwise unremarkable Physical Examination - Vital Signs Temperature: 97.4 F Blood Pressure: 164/80 Pulse: 60 Respirations: 14 Pulse Ox (%): 100 - Physical Exam General: Alert, In no apparent distress HEENT: Atraumatic, PERRLA, EOMI Neck: Supple, JVD not distended Respiratory: Clear to auscultation bilaterally, Normal air movement Cardiovascular: Regular rate/rhythm, Normal S1 S2 Gastrointestinal: Normal bowel sounds, No tenderness Musculoskeletal: No tenderness Integumentary: No rashes Neurological: Normal speech, Normal tone, Normal affect Lymphatics: No axilla or inguinal lymphadenopathy - Studies Laboratory Data (last 24 hrs) 07/02/23 07/02/23 07/02/23 15:09 13:57 13:57 WBC 4.50 Hgb 11.2 L Hct 35.5 L Plt Count 183 PT 11.2 INR 1.02 Sodium Potassium BUN Creatinine Glucose Magnesium 1.9 07/02/23 13:57 WBC Hgb Hct Plt Count PT INR Sodium 131 L Potassium 4.6 BUN 86 H Creatinine 3.93 H Glucose 284 H Magnesium Assessment And Plan - Current Problems (Diagnosis) (1) Bradycardia Current Visit: Yes Status: Acute Plan: will put her in a tele unit. Have her seen by Dr. Kruse 07/03 The patient still asymptomatic bradycardia. Have held her metoprolol. Consider stopping the amiodarone. Will discuss with Dr. Kruse (2) CKD stage 5 due to type 2 diabetes mellitus Current Visit: Yes Status: Chronic Plan: will hold the lasix. She is euvolemic at this time 06/29 creatine is staying at the same level. Will continue to monitor (3) Atrial fibrillation Onset Date: 11/15/15 Current Visit: No Status: Chronic Plan: will continue home meds Qualifiers: Atrial fibrillation type: persistent (not longstanding) Qualified Code(s): I48.19 - Other persistent atrial fibrillation; I48.1 - Persistent atrial fibrillation Discharge Plan: Home Plan to discharge in: 48 Hours - Code Status/Comfort Care Code Status Assessed: No Physician Review: Patient Assessed, Agree with Above Assessment and Plan Critical Care: Yes Time Spent Managing PTS Care (In Minutes): 20
[2023-07-03 09:26] LABS: Anisocytosis 3+; Blood Morphology Comment NOTED (NOT SEEN); Platelet Estimate ADEQ
[2023-07-03] MEDS: INSULIN -REGULAR HUMAN 50 UNIT/0.5 ML ML SQ SCH ×3 (11:30→21:00)
[2023-07-03] MEDS ORDERED: NA CHLORIDE 0.9% 250 ML IV ONE (12:30)
[2023-07-03] MEDS: HYDRALAZINE HCL 20 MG/ML VIAL IV PRN (13:56)
[2023-07-03 14:08] LABS: Specific Gravity 1.015 (1.005-1.030); Transitional Epithelial <5 /HPF (None Seen); Urine Bacteria None Seen /HPF (<20); Urine Bilirubin NEGATIVE (Negative); Urine Blood Trace (Negative); Urine Clarity Clear (Clear); Urine Color Light-Yellow (Yellow); Urine Glucose 1+ (Negative); Urine Mucus Slight /HPF (None Seen); Urine Protein 3+ (Negative); Urine RBC <5 /HPF (None Seen); Urine Urobilinogen Normal (Normal)
[2023-07-03 14:37] LABS: UR PROTEIN 308.1 mg/dL (<11.9); Urine Protein/Creatinine Ratio 4.16 ratio (<0.15)
--- NOTE | 2023-07-03 15:53 | EKG ---
Test Date: 2023-07-02 Test Time: 12:49:27 Comfort Advisor: GIO MEASUREMENT RESULTS: Intervals: Rate: 36 MT: QRSD: 90 QT: 584 QTc: 451 Martinez: P: MT: QRS: 75 T: 50 INTERPRETIVE STATEMENTS: Sinus bradycardia Low voltage QRS Cannot rule out Anteroseptal infarct, age undetermined Abnormal ECG Compared to ECG 07/02/2023 12:49:05 Atrial fibrillation no longer present Myocardial infarct finding still present Electronically Signed On 07-03-23 15:52:11 CDT by Jose C Kruse
--- NOTE | 2023-07-03 16:05 | P.CNS ---
Date of Consult: 07/03/23 Reason for Consult: LEE ANN/ CKD Requesting Physician: Kapil Servin Primary Care Provider: Gareth Chief Complaint: Bradycardia History of Present Illness: 82 yo WF CKD, CHF presented to the [facility] ER with several days of moderate, persistent weakness in the setting of bradycardia. [id number] 12:30 This 82 yrs old Female presents to ER via Wheelchair with complaints of Weakness. aj3 12:30 Patient has been feeling tired and weak over the last few days and found to have low aj3 blood sugar today in the 40s and low heart rate in the 30s. Patient was given food by her daughter and told to come to ED by PCP.. Allergies Sulfa (Sulfonamide Antibiotics) Allergy (Intermediate, Verified 12/14/21 23:25) Nausea/Vomiting/flu like symptoms Home medications list reviewed: Yes Home Medications: Aspirin [Aspirin EC 81 MG] 81 mg PO DAILY 12/14/21 Cholecalciferol (Vitamin D3) [Vitamin D 1000 Iu Tab] 1,000 unit PO DAILY 12/14/21 Clopidogrel Bisulfate [Plavix] 75 mg PO DAILY 12/14/21 Memantine HCl 5 mg PO DAILY 12/14/21 Metoprolol Tartrate 25 mg PO BID 12/14/21 Montelukast [Singulair] 10 mg PO DAILY 12/14/21 Fluticasone/Salmeterol [Advair Hfa 45-21 Mcg Inhaler] 1 puff IH BID 12/17/21 Albuterol Sulfate [Albuterol Sulfate Hfa] 1 puff IH Q6H PRN 03/28/23 Insulin Degludec [Tresiba Flextouch U-100] 32 unit SQ DAILY 03/28/23 Mecobalamin [B12 Active] 1,000 mcg PO DAILY 03/28/23 Amiodarone HCl [Cordarone*] 200 mg PO BID 30 Days #60 tab 03/29/23 Furosemide [Lasix] 20 mg PO DAILY 90 Days #90 tab 06/14/23 Hydralazine [Apresoline*] 10 mg PO DAILY 06/25/23 Levothyroxine Sodium 75 mcg PO DAILY 06/25/23 Pioglitazone [Actos*] 15 mg PO DAILY 06/25/23 - Past Medical/Surgical History Diabetic: Yes -: Diabetes mellitus type 2 insulin-dependent -: Hypothyroidism -: Atrial fibrillation not on chronic anti coagulation therapy -: COPD -: HTN -: History of MAC pulmonary infection -: CHF -: Anemia -: Frequent UTI's -: CKD IV (Dr. 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 - Family History Father Medical History: Heart disease, Diabetes Notes: Sister Medical History: Diabetes Mother Medical History: Diabetes Brother Medical History: Diabetes - Social History Smoking Status: Former smoker Alcohol use: Yes CD- Drugs: No Caffeine use: Yes Place of Residence: Home Review of Systems 10-point ROS is otherwise unremarkable General: Weakness, Malaise Cardiovascular: Edema Physical Examination Temp Pulse Resp BP Pulse Ox 97.4 F 47 L 16 142/52 H 99 07/03/23 09:24 07/03/23 12:00 07/03/23 12:00 07/03/23 10:00 07/03/23 12:00 General: In no apparent distress, Oriented x3, Cooperative HEENT: Atraumatic Neck: Supple Respiratory: Normal air movement Cardiovascular: Regular rate/rhythm, Edema Gastrointestinal: Soft and benign, Non-distended Musculoskeletal: No clubbing, No contractures Integumentary: No rashes, No cyanosis Neurological: Normal speech Laboratory Data (last 24 hrs) 07/02/23 13:57 WBC 4.50 Hgb 11.2 L Hct 35.5 L Plt Count 183 Imagings Data: [id number] EXAM DESCRIPTION: Rl Single View07/02/2023 2:03 pm CLINICAL HISTORY: Bradycardia COMPARISON: June 26, 2023 FINDINGS: Small to moderate right pleural effusion. Mild bilateral interstitial lung opacities unchanged Heart is mildly enlarged [id number] LEFT VENTRICULAR WALL MOTION: NORMAL DOPPLER/COLOR FLOW: SEE BELOW COMMENTS: 1. NORMAL LEFT VENTRICULAR EJECTION FRACTION 60-65% 2. NORMAL WALL MOTION 3. MODERATE DIASTOLIC DYSFUNCTION 4. CALCIFIED AORTIC VALVE WITH MODERATE AORTIC STENOSIS 5. SEVERE PULMONARY HYPERTENSION WITH RIGHT VENTRICULAR SYSTOLIC PRESSURE OF 60- 65 mmHg Conclusions/Impression: CKD IV/ V with Proteinuria -No NSAIDs -Hold diuretics Hyponatremia -Monitor level HTN with CKD/ CHF -Hydralazine prn Diastolic CHF, chronic Pulmonary HTN Moderate Aortic Stenosis -Daily weight -Low sodium diet DM II with CKD -RISS Hypoalbuminemia -Start Nepro Anemia in chronic illness/ CKD -Retacrit prn Case reviewed with Dr. Servin Thank you kindly for the consultation
--- NOTE | 2023-07-03 17:06 | PN ---
Date of Progress Note: 07/03/2023 Subjective: Seen by bedside. Seems to be bradycardic, but is still asymptomatic. Review of Systems: No chest pain, shortness of breath, orthopnea, cough. No nausea, vomiting, diarrhea. No abdominal p ain. No dysuria, polyuria, or urinary urgency. All other systems reviewed and they were negative. Physical Examination: Vital Signs: Reviewed. Head and Neck: Pupils are equal, reactive to light. Intact eye movements. No JVD. No cervical lym phadenopathy. Neck is supple. Thyroid is not enlarged. Lungs: Clear to auscultation bilaterally. No rhonchi, wheezing, or crackles. No accessory muscle u se. Heart: Regular rate and rhythm. No extra sounds. Abdomen: Soft, nontender. Bowel sounds positive. No organomegaly. No masses or hernia. No rigidi ty or rebound. Extremities: No edema, clubbing, or cyanosis. Intact pulses. Skin: No rash. Neurologic: Alert, awake, oriented x3. No acute focal deficits appreciated. Investigations: Hemoglobin is 10.5 and BUN is 89, creatinine is 3.8. Assessment And Recommendations: 1.Sinus bradycardia, asymptomatic, maintaining good blood pressure. Continue to monitor off beta-bl ockers and tomorrow to ambulate the patient. If her heart rate picks up to activities, then no need for further management, but if she fails to improve her heart rate to activities, then we will plan f or a pacemaker implantation. 2.Coronary artery disease. No chest pain. Continue current management. 3.Hypertension. Blood pressure is acceptable. Continue current therapy. 4.Dyslipidemia. Continue statin. SR/MODL Voice ID: [id number] Report ID: [id number]
[2023-07-03] MEDS: ENOXAPARIN 30 MG/0.3 ML SQ SCH (17:26)
[2023-07-04] MEDS: DOCUSATE NA 100 MG CAP PO SCH ×2 (02:10→08:12)
[2023-07-04 04:23] VITALS: O2SAT 96
[2023-07-04 05:59] VITALS: BMI 21.3
[2023-07-04] MEDS: LEVOTHYROXINE SOD 0.075 MG TAB PO SCH (06:35)
[2023-07-04 07:11] LABS: MPV 9.6 fL (7.6-11.3); Platelets 168 thou/uL (152-406); RBC Red Blood Cell Count 3.57 M/uL (3.86-4.86)
[2023-07-04 07:26] LABS: Albumin 2.6 g/dL (3.4-5.0); Bilirubin Total 0.3 mg/dL (0.2-1.0); Potassium 4.4 mEq/L (3.5-5.1); Protein, Total 6.8 g/dL (6.4-8.2)
[2023-07-04] MEDS: INSULIN -REGULAR HUMAN 50 UNIT/0.5 ML ML SQ SCH ×3 (07:30→16:49)
[2023-07-04] MEDS: CYANOCOBALAMIN 1,000 MCG TAB PO SCH (08:12)
[2023-07-04] MEDS: ASPIRIN EC 81 MG TAB PO SCH (08:12)
[2023-07-04] MEDS: HYDRALAZINE HCL 10 MG TABLET PO SCH (08:12)
[2023-07-04] MEDS: MEMANTINE HCL 10 MG TABLET PO SCH (08:12)
[2023-07-04] MEDS: CLOPIDOGREL 75 MG TABLET PO SCH (08:12)
[2023-07-04] MEDS: NEPRO SHAKE 237 ML CAN PO SCH ×2 (08:13→14:00)
--- NOTE | 2023-07-04 08:21 | P.PN ---
Subjective Date of Service: 07/04/23 Primary Care Provider: Gareth Chief Complaint: Bradycardia Subjective: No new changes Review of Systems 10-point ROS is otherwise unremarkable Respiratory: SOB with Excertion Physical Examination - Vital Signs Temperature: 97 F Blood Pressure: 159/71 Pulse: 43 Respirations: 11 Pulse Ox (%): 95 - Physical Exam General: Alert, In no apparent distress HEENT: Atraumatic, PERRLA, EOMI Neck: Supple, JVD not distended Respiratory: Clear to auscultation bilaterally, Normal air movement Cardiovascular: Regular rate/rhythm, Normal S1 S2 Gastrointestinal: Normal bowel sounds, No tenderness Musculoskeletal: No tenderness Integumentary: No rashes Neurological: Normal speech, Normal tone, Normal affect Lymphatics: No axilla or inguinal lymphadenopathy Assessment And Plan - Current Problems (Diagnosis) (1) Bradycardia Current Visit: Yes Status: Acute Plan: will put her in a tele unit. Have her seen by Dr. Kruse 07/[address] Kruse. would like to observe the patient till the metoprolol is out of her system. If there is no reovery in the heart rate we may need a pacemaker. Spoke with the daughter. She wants everything done. (2) CKD stage 5 due to type 2 diabetes mellitus Current Visit: Yes Status: Chronic Plan: will hold the lasix. She is euvolemic at this time 07/04 creatine is stable. Not yet a dialysis candidate. However the family will want HD if it becomes necessary (3) Atrial fibrillation Onset Date: 11/15/15 Current Visit: No Status: Chronic Plan: will continue home meds Qualifiers: Atrial fibrillation type: persistent (not longstanding) Qualified Code(s): I48.19 - Other persistent atrial fibrillation; I48.1 - Persistent atrial fibrillation Discharge Plan: Home Plan to discharge in: 24 Hours - Code Status/Comfort Care Code Status Assessed: No Physician Review: Patient Assessed, Agree with Above Assessment and Plan Critical Care: No Time Spent Managing PTS Care (In Minutes): 25
[2023-07-04 09:00] LABS: Anisocytosis 3+; Blood Morphology Comment NOTED (NOT SEEN); Platelet Estimate ADEQ
--- NOTE | 2023-07-04 10:10 | P.PN ---
Date of Service: 07/04/23 Vital Signs Temp Pulse Resp BP Pulse Ox 97 F 52 14 127/45 L 98 07/04/23 08:20 07/04/23 09:27 07/04/23 09:27 07/04/23 09:27 07/04/23 09:27 Medications Aspirin (Aspirin Ec 81 Mg Tab) 81 mg PO DAILY [facility] Last Admin: 07/04/23 08:12 Dose: 81 mg Clopidogrel Bisulfate (Clopidogrel 75 Mg Tablet) 75 mg PO DAILY [facility] Last Admin: 07/04/23 08:12 Dose: 75 mg Cyanocobalamin (Cyanocobalamin 1,000 Mcg Tab) 1,000 mcg PO DAILY [facility] Last Admin: 07/04/23 08:12 Dose: 1,000 mcg Docusate Sodium (Docusate Na 100 Mg Cap) 100 mg PO BID [facility] Last Admin: 07/04/23 08:12 Dose: 100 mg Enoxaparin Sodium (Enoxaparin 30 Mg/0.3 Ml) 30 mg SQ DAILY 5 PM [facility] Last Admin: 07/03/23 17:26 Dose: 30 mg Enteral Nutritional Formula (Nepro Shake 237 Ml Can) 237 ml PO TID [facility] Last Admin: 07/04/23 08:13 Dose: 237 ml Ergocalciferol (Drisdol (Vitamin D=Ergocalciferol) 28611 Unit Cap) 50,000 unit PO Q7D [facility] Last Admin: 07/03/23 07:58 Dose: 50,000 unit Glucagon (Glucagon 1 Mg/Vial) 1 mg IM 1X PRN; Protocol PRN Reason: HYPOGLYCEMIA Hydralazine HCl (Hydralazine Hcl 10 Mg Tablet) 10 mg PO DAILY [facility] Last Admin: 07/04/23 08:12 Dose: 10 mg Hydralazine HCl (Hydralazine Hcl 20 Mg/Ml Vial) 10 mg IV Q6HP PRN PRN Reason: HIGHBP Last Admin: 07/03/23 13:56 Dose: 10 mg Dextrose (Dextrose 10% Water Iv Soln.) 125 mls @ 0 mls/hr IV PRN PRN; Protocol PRN Reason: HYPOGLYCEMIA Insulin Human Regular (Insulin -Regular Human 50 Unit/0.5 Ml Ml) 0 unit SQ ACHS [facility]; Protocol Last Admin: 07/04/23 07:30 Dose: Not Given Levothyroxine Sodium (Levothyroxine Sod 0.075 Mg Tab) 0.075 mg PO DAILYAC [facility] Last Admin: 07/04/23 06:35 Dose: 0.075 mg Memantine (Memantine Hcl 10 Mg Tablet) 5 mg PO DAILY [facility] Last Admin: 07/04/23 08:12 Dose: 5 mg Assessment/ Plan: Nephrology No dyspnea. TYSON No chest pain Persistent bradycardia No acute events overnight Vitals, medications, blood work and imaging reviewed in the chart General: In no apparent distress, Oriented x3, Cooperative HEENT: Atraumatic Neck: Supple Respiratory: Normal air movement Cardiovascular: Regular rate/rhythm, Edema 1-2+ Gastrointestinal: Soft and benign, Non-distended Musculoskeletal: No clubbing, No contractures Integumentary: No rashes, No cyanosis Neurological: Normal speech Laboratory Data (last 24 hrs) 07/02/23 13:57 WBC 4.50 Hgb 11.2 L Hct 35.5 L Plt Count 183 Imagings Data: EXAM DESCRIPTION: Rl Single View07/02/2023 2:03 pm CLINICAL HISTORY: Bradycardia COMPARISON: June 26, 2023 FINDINGS: Small to moderate right pleural effusion. Mild bilateral interstitial lung opacities unchanged Heart is mildly enlarged LEFT VENTRICULAR WALL MOTION: NORMAL DOPPLER/COLOR FLOW: SEE BELOW COMMENTS: 1. NORMAL LEFT VENTRICULAR EJECTION FRACTION 60-65% 2. NORMAL WALL MOTION 3. MODERATE DIASTOLIC DYSFUNCTION 4. CALCIFIED AORTIC VALVE WITH MODERATE AORTIC STENOSIS 5. SEVERE PULMONARY HYPERTENSION WITH RIGHT VENTRICULAR SYSTOLIC PRESSURE OF 60- 65 mmHg Conclusions/Impression: CKD V with Proteinuria Progressive CKD in the setting of uncontrolled DM, multiple hospital admissions and bradycardia -No NSAIDs -Restart diuretic as indicated -May need to consider dialysis if no improvement Hyponatremia -Monitor level HTN with CKD/ CHF -Hydralazine prn -Start Amlodipine 5mg BID Bradycardia -Followed by Dr. Kruse Diastolic CHF, chronic Pulmonary HTN Moderate Aortic Stenosis -Daily weight -Low sodium diet -Restart diuretic as indicated DM II with CKD -RISS Hypoalbuminemia -Continue Nepro Anemia in chronic illness/ CKD -Retacrit X1 Case reviewed with Dr. Servin Case reviewed with her daughter Jacqueline by phone. We discussed the possibility of dialysis in the near future.
[2023-07-04] MEDS ORDERED: EPOETIN ALFA-EPBX 10,000 UNIT/ML VIAL SQ ONE (10:15)
[2023-07-04] MEDS ORDERED: AMLODIPINE 5 MG TAB PO SCH (10:15)
[2023-07-04] MEDS: ENOXAPARIN 30 MG/0.3 ML SQ SCH (16:49)
[2023-07-04] MEDS: HYDRALAZINE HCL 20 MG/ML VIAL IV PRN (18:40)
--- NOTE | 2023-07-04 19:28 | P.DS ---
Admission Date: 07/04/23 Discharge Date: 07/04/23 Primary Care Provider: Gareth Disposition: ROUTINE DISCHARGE Discharge Condition: GOOD Reason for Admission: Bradycardia - Problems (1) Bradycardia Current Visit: Yes Status: Acute (2) CKD stage 5 due to type 2 diabetes mellitus Current Visit: Yes Status: Chronic (3) Atrial fibrillation Onset Date: 11/15/15 Current Visit: No Status: Chronic Qualifiers: Atrial fibrillation type: persistent (not longstanding) Qualified Code(s): I48.19 - Other persistent atrial fibrillation; I48.1 - Persistent atrial fibrillation Brief History of Present Illness: Patient of mine with a history of ckd stage 5. dm2, mild cognitive impairment. The patient has been having bradycardia at home with some elevated blood pressure. As she lives next door I went to check on the patient. She had a pulse of 48 bp was 173/63 Sent her to the ER. The patient has a slight increase in her creatine of 3.93 this is a slight elevation from her previous creatine on 06/28. The patient was seen by Dr. Kruse who wants to keep her for observation. As her pulse has been consistently low, this seems appropriate. Hospital Course: Patient admitted for bradycardia. Kept in the ICU. Beta loren was stopped. The patient slowly recovered. Will have her follow up with me in the office. Vital Signs/Physical Exam: Temp Pulse Resp BP Pulse Ox 97 F 52 15 191/59 H 97 07/04/23 08:20 07/04/23 18:20 07/04/23 18:20 07/04/23 18:20 07/04/23 15:00 General: Alert, In no apparent distress HEENT: Atraumatic, PERRLA, EOMI Neck: Supple, JVD not distended Respiratory: Clear to auscultation bilaterally, Normal air movement Cardiovascular: Regular rate/rhythm, Normal S1 S2 Gastrointestinal: Normal bowel sounds, No tenderness Musculoskeletal: No tenderness Integumentary: No rashes Neurological: Normal speech, Normal tone, Normal affect Lymphatics: No axilla or inguinal lymphadenopathy Laboratory Data at Discharge: WBC 4.00 thou/uL (4.3-10.9) L 07/04/23 06:32 Hgb 10.0 g/dL (12.0-15.0) L 07/04/23 06:32 Hct 31.0 % (36.0-45.0) L 07/04/23 06:32 Plt Count 168 thou/uL (152-406) 07/04/23 06:32 PT 11.2 SECONDS (9.5-12.5) 07/02/23 13:57 INR 1.02 07/02/23 13:57 Sodium 135 mEq/L (136-145) L 07/04/23 06:32 Potassium 4.4 mEq/L (3.5-5.1) 07/04/23 06:32 BUN 91 mg/dL (7-18) H 07/04/23 06:32 Creatinine 3.89 mg/dL (0.55-1.02) H 07/04/23 06:32 Glucose 129 mg/dL (74-106) H 07/04/23 06:32 Uric Acid 12.6 mg/dL (2.6-6.0) H 07/03/23 06:45 Phosphorus 5.3 mg/dL (2.5-4.9) H 07/03/23 06:45 Magnesium 1.9 mg/dL (1.6-2.4) 07/02/23 15:09 Total Bilirubin 0.3 mg/dL (0.2-1.0) 07/04/23 06:32 AST 20 U/L (15-37) 07/04/23 06:32 ALT 34 U/L (13-56) 07/04/23 06:32 Alkaline Phosphatase 176 U/L (45-117) H 07/04/23 06:32 Home Medications: Aspirin [Aspirin EC 81 MG] 81 mg PO DAILY 12/14/21 Cholecalciferol (Vitamin D3) [Vitamin D 1000 Iu Tab] 1,000 unit PO DAILY 12/14/21 Clopidogrel Bisulfate [Plavix] 75 mg PO DAILY 12/14/21 Memantine HCl 5 mg PO DAILY 12/14/21 Metoprolol Tartrate 25 mg PO BID 12/14/21 Montelukast [Singulair] 10 mg PO DAILY 12/14/21 Fluticasone/Salmeterol [Advair Hfa 45-21 Mcg Inhaler] 1 puff IH BID 12/17/21 Albuterol Sulfate [Albuterol Sulfate Hfa] 1 puff IH Q6H PRN 03/28/23 Insulin Degludec [Tresiba Flextouch U-100] 32 unit SQ DAILY 03/28/23 Mecobalamin [B12 Active] 1,000 mcg PO DAILY 03/28/23 Amiodarone HCl [Cordarone*] 200 mg PO BID 30 Days #60 tab 03/29/23 Furosemide [Lasix] 20 mg PO DAILY 90 Days #90 tab 06/14/23 Hydralazine [Apresoline*] 10 mg PO DAILY 06/25/23 Levothyroxine Sodium 75 mcg PO DAILY 06/25/23 Pioglitazone [Actos*] 15 mg PO DAILY 06/25/23 Physician Discharge Instructions: stop metoprolol Diet: ADA Activity: Ad nel Followup: Kapil Servin MD [Primary Care Provider] - 1 Week Cristino Rodriguez DO [ACTIVE - CAN ADMIT] - 1-2 Weeks Jose C Kruse MD [ACTIVE - CAN ADMIT] - 1-2 Weeks Time spent managing pt's care (in minutes): 45
[2023-07-04 20:30] VITALS: BP 149/49; TEMP 97.8
--- NOTE | 2023-07-04 20:54 | PN ---
Date of Progress Note: 07/04/2023 Subjective: Seen by bedside. Doing well. Heart rate is picking up nicely. It is in the 50s now. No dizziness. No chest pain or shortness of breath. Review of Systems: There is no chest pain, shortness of breath, orthopnea, cough. No nausea, vomiting, diarrhea. All o ther systems reviewed are negative. Physical Examination: Vital Signs: Reviewed. Head and Neck: Pupils are equal, reactive to light. Intact eye movements. No JVD. No cervical lym phadenopathy. Neck is supple. Thyroid is not enlarged. Lungs: Clear to auscultation bilaterally. No rhonchi, wheezing, or crackles. No accessory muscle u se. Heart: Regular rate and rhythm. No extra sounds. Abdomen: Soft, nontender. Bowel sounds positive. No organomegaly. No masses or hernia. No rigidi ty or rebound. Extremities: No edema, clubbing, or cyanosis. Intact pulses. Skin: No rash. Neurologic: Alert, awake, oriented x3. No acute focal deficits appreciated. Investigations: Labs reviewed. Assessment/recommendations: 1.Sinus bradycardia due to medications. Heart rate is picking up nicely. It is in the mid 50s now and that is maintaining very good blood pressure. I do not see a reason to do a pacemaker at this po int. From my perspective, she can be released home to follow up as an outpatient in 1 week. 2.Atrial fibrillation, paroxysmal. She is in sinus and status post appendage closure. Continue to monitor. 3.Advanced kidney failure. Likely, she will require dialysis. Cardiology will sign off on the case . SR/TANYAL Voice ID: [id number] Report ID: [id number]
== END 2023-07-04 20:07 | disposition home or self-care (01) | DRG 309 ==
LOC: ER 12:04 → ERHOLD 15:49 → 3RD-ICU 20:22 → OBSVTOIN 07-04 16:01
PROVIDERS: ADMIT Internal Medicine; ATTEND Internal Medicine
DX: R00.1 Bradycardia, unspecified (principal); E87.1 Hypo-osmolality and hyponatremia; N18.5 Chronic kidney disease, stage 5; I50.32 Chronic diastolic (congestive) heart failure; I13.2 Hypertensive heart and chronic kidney disease with heart failure and with stage 5 chronic kidney disease, or end stage renal disease; E11.22 Type 2 diabetes mellitus with diabetic chronic kidney disease; D63.1 Anemia in chronic kidney disease; I48.19 Other persistent atrial fibrillation; J44.9 Chronic obstructive pulmonary disease, unspecified; I27.20 Pulmonary hypertension, unspecified; E03.9 Hypothyroidism, unspecified; E88.09 Other disorders of plasma-protein metabolism, not elsewhere classified; I25.10 Atherosclerotic heart disease of native coronary artery without angina pectoris; T50.905A Adverse effect of unspecified drugs, medicaments and biological substances, initial encounter; Z95.5 Presence of coronary angioplasty implant and graft; Z88.2 Allergy status to sulfonamides; Z79.4 Long term (current) use of insulin; Z79.82 Long term (current) use of aspirin; Z79.02 Long term (current) use of antithrombotics/antiplatelets; Z90.710 Acquired absence of both cervix and uterus; Z79.899 Other long term (current) drug therapy
CPT/HCPCS: 36415; 71045; 80048; 80053; 81001; 82043; 82570; 82947; 83735; 83880; 84100; 84156; 84443; 84484; 84550; 85025; 85610; 86038; 86160; 86704; 86706; 87340; 87522; 93005; 99284; G0378; J0360; J1650; J1815; J7050; Q5106

== ENCOUNTER 2023-08-17 10:03 | Day surgery (SDC) | payer OTHER ==
[2023-08-17 10:29] VITALS: BMI 20.5
[2023-08-17 10:48] LABS: Hematocrit 27.4 % (36.0-45.0)
[2023-08-17] MEDS ORDERED: EPOETIN ALFA-EPBX 10,000 UNIT/ML VIAL ONE (11:06)
[2023-08-17 11:30] LABS: Ferritin 40.5 ng/mL (8-388); Transferrin 210 mg/dL (200-360)
[2023-08-17 11:59] VITALS: BP 186/65; TEMP 98.4; O2SAT 95
== END 2023-08-17 11:20 | disposition home or self-care (01) ==
LOC: DS 10:03
PROVIDERS: ATTEND Internal Medicine Nephrology
DX: N18.4 Chronic kidney disease, stage 4 (severe) (principal); D63.1 Anemia in chronic kidney disease
CPT/HCPCS: 36415; 85018; 85014; 82728; 82607; 83540; 84466; 96372; Q5106

== ENCOUNTER 2023-09-14 11:04 | Day surgery (SDC) | payer OTHER ==
[2023-09-14 12:01] LABS: Hematocrit 31.9 % (36.0-45.0)
[2023-09-14] MEDS ORDERED: EPOETIN ALFA-EPBX 10,000 UNIT/ML VIAL ONE (12:29)
[2023-09-14 13:17] VITALS: BP 148/58; TEMP 98.5; O2SAT 96; BMI 20.2
== END 2023-09-14 12:21 | disposition home or self-care (01) ==
LOC: DS 11:04
PROVIDERS: ATTEND Internal Medicine Nephrology
DX: N18.4 Chronic kidney disease, stage 4 (severe) (principal); D63.1 Anemia in chronic kidney disease
CPT/HCPCS: 36415; 85018; 85014; 96372; Q5106

== ENCOUNTER 2023-11-01 10:20 | Day surgery (SDC) | payer OTHER ==
[2023-11-01 11:16] LABS: Hematocrit 29.7 % (36.0-45.0)
[2023-11-01] MEDS ORDERED: EPOETIN ALFA-EPBX 10,000 UNIT/ML VIAL ONE (11:39)
[2023-11-01 11:59] VITALS: BP 118/53; TEMP 97.5; O2SAT 97; BMI 21.8
== END 2023-11-01 11:55 | disposition home or self-care (01) ==
LOC: DS 10:20
PROVIDERS: ATTEND Internal Medicine Nephrology
DX: N18.4 Chronic kidney disease, stage 4 (severe) (principal); D63.1 Anemia in chronic kidney disease
CPT/HCPCS: 36415; 85018; 85014; 96372; Q5106

== ENCOUNTER 2023-11-07 14:46 | Inpatient (IN) | payer OTHER ==
--- NOTE | 2023-11-07 15:30 | RAD REPORT ---
EXAM DESCRIPTION: CT - CTHCSPWOC - 11/07/2023 3:13 pm CLINICAL HISTORY: Trauma, head and neck injury. TRAUMA COMPARISON: No comparisons TECHNIQUE: Axial 5 mm thick images of the head were obtained. Axial 2 mm thick images of the cervical spine were obtained with sagittal and coronal reconstruction images generated and reviewed. All CT scans are performed using dose optimization technique as appropriate and may include automated exposure control or mA/KV adjustment according to patient size. FINDINGS: CT HEAD WITHOUT CONTRAST: No acute hemorrhage, hydrocephalus or extra-axial collection is identified.Mild generalized brain atr ophy is present with mild periventricular and deep white matter chronic microvascular ischemic change s.No areas of brain edema or midline shift. The paranasal sinuses and mastoids are clear.The calvarium is intact. CT CERVICAL SPINE WITHOUT CONTRAST: No fracture or subluxation.Moderate multilevel lower cervical degenerative spondylosis.No prevertebra l soft tissues swelling is identified. IMPRESSION: No acute intracranial or cervical spine findings.
[2023-11-07 15:33] LABS: Absolute Lymphocytes (CBC) 0.3 K/uL (0.7-4.9); Hematocrit 27.4 % (36.0-45.0); Lymphocytes % 5.2 % (15.3-44.8); MCV 82.8 fL (80-100); Platelets 122 thou/uL (152-406); RBC Red Blood Cell Count 3.32 M/uL (3.86-4.86)
--- NOTE | 2023-11-07 15:38 | RAD REPORT ---
EXAM DESCRIPTION: RAD - Pelvis - 11/07/2023 3:29 pm CLINICAL HISTORY: TRAUMA COMPARISON: No comparisons FINDINGS: Advanced osteopenia. No acute fracture or dislocation.
--- NOTE | 2023-11-07 15:38 | RAD REPORT ---
EXAM DESCRIPTION: RAD - Chest Single View - 11/07/2023 3:29 pm CLINICAL HISTORY: DYSPNEA Chest pain. COMPARISON: Chest Single View dated 07/02/2023; Chest Single View dated 06/26/2023; Chest Single View dated 06/25/2023; Chest Single View dated 03/28/2023 FINDINGS: Portable technique limits examination quality. Moderately severe bilateral pulmonary opacities are present. Small right pleural effusion. This proba lety represents pneumonia. The heart is mildly prominent in size.
[2023-11-07 15:53] LABS: Potassium 4.2 mEq/L (3.5-5.1); Troponin High Sensitivity 40.9 pg/mL (<58.9)
[2023-11-07] MEDS ORDERED: CEFTRIAXONE 1000 MG/VIAL ONE (16:09)
[2023-11-07] MEDS ORDERED: ONDANSETRON 4 MG/2 ML VIAL ONE (16:09)
[2023-11-07] MEDS ORDERED: AZITHROMYCIN 500 MG INJ IVPB ONE (16:09)
[2023-11-07] MEDS ORDERED: NA CHLORIDE 0.9% 250 ML ONE (16:10)
--- NOTE | 2023-11-07 16:15 | ER ---
Nurse's Notes [facility] Name: Carlita Villalobos Age: 83 yrs Sex: Female : 1940 Arrival Date: 11/07/2023 Time: 14:46 Bed 5 Private MD: Diagnosis: Unspecified bacterial pneumonia Presentation: 11/07 15:03 Chief complaint: EMS states: patient had low blood sugar this morning in the 50's but ko1 when they arrived it was 114. Family says that patient is weak and has fallen twice in the past 24 hours. She is on blood thinners but did not hit head, she is complaining of back and rib pain. Coronavirus screen: At this time, the client does not indicate any symptoms associated with coronavirus-19. Ebola Screen: No symptoms or risks identified at this time. Initial Sepsis Screen: Does the patient meet any 2 criteria? No. Patient's initial sepsis screen is negative. Does the patient have a suspected source of infection? No. Patient's initial sepsis screen is negative. Risk Assessment: Do you want to hurt yourself or someone else? Patient reports no desire to harm self or others. Onset of symptoms was November 07, 2023. Care prior to arrival: IV initiated. 20 GA, in the right forearm. 15:03 Method Of Arrival: EMS: [facility] ko1 15:03 Acuity: PARESH 3 ko1 Triage Assessment: 15:07 General: Appears in no apparent distress. uncomfortable, Behavior is calm, cooperative, ko1 appropriate for age. Pain: Complains of pain in back. Historical: - Allergies: 15:07 Sulfa (Sulfonamide Antibiotics); ko1 - PMHx: 15:07 Diabetes - IDDM; Hypertension; Hypothyroidism; ko1 - PSHx: 15:07 back surgery; cardiac stents; colonscopy; hysterectomy; Tonsillectomy; ko1 - Immunization history:: Adult Immunizations unknown. - Social history:: Smoking status: Patient denies any tobacco usage or history of. Screenin:00 [facility] ED Fall Risk Assessment (Adult) History of falling in the last 3 months, ko1 including since admission Yes- fall prone (multiple falls) (3 pts) Confusion or Disorientation No (0 pts) Intoxicated or Sedated No (0 pts) Impaired Gait Yes (1 pt) Mobility Assist Device Used Yes (1 pt) Altered Elimination No (0 pt) Score/Fall Risk Level 3 or more points = High Risk Oriented to surroundings, Maintained a safe environment, Educated pt \T\ family on fall prevention, incl call for assistance when getting out of bed, Assessed \T\ reinforced patient's understanding of fall precautions, Provided non-skid footwear, Hourly rounding (assess needs \T\ fall precautionary measures) done, Used ambulatory aids as needed (educated on \T\ assisted with), Used gait belt as appropriate Implemented a Fall Risk Plan of Care, Offered frequent toileting (1:1 observation), Remained with patient while ambulating, Utilized family, sitter, or virtual psychiatric orderly as indicated. Abuse screen: Denies threats or abuse. Denies injuries from another. Nutritional screening: No deficits noted. Tuberculosis screening: No symptoms or risk factors identified. Assessment: 15:00 Neuro: No deficits noted. Cardiovascular: Rhythm is sinus bradycardia. Respiratory: ko1 Reports shortness of breath on exertion cough that is productive. GI: No deficits noted. : No deficits noted. EENT: No deficits noted. Derm: No deficits noted. Musculoskeletal: No deficits noted. 19:34 General: Appears comfortable, Behavior is calm, cooperative. Pain: Denies pain. Neuro: ha1 Level of Consciousness is awake, alert, obeys commands, Oriented to person, place, time, situation. Cardiovascular: Capillary refill < 3 seconds Patient's skin is warm and dry. Respiratory: Airway is patent Respiratory effort is even, unlabored, Respiratory pattern is regular, symmetrical. Derm: Skin is pale. Musculoskeletal: Circulation, motion, and sensation intact. 19:35 Reassessment: attempted to give report. ha1 20:35 Reassessment: Patient and/or family updated on plan of care and expected duration. Pain ha1 level reassessed. Patient is alert, oriented x 3, equal unlabored respirations, skin warm/dry/pink. attempted to give report. 20:58 Reassessment: multiple attempted to give report multiple time. room needs cleanning. ha1 22:14 Reassessment: report given to KIRAN Carrera. ha1 Vital Signs: 15:03 BP 162 / 70; Pulse 47; Resp 17; Temp 96.9; Pulse Ox 97% ; ko1 16:00 BP 120 / 71; Pulse 60; Resp 15; Pulse Ox 96% ; ko1 16:13 BP 160 / 80; Pulse 62; ec2 17:00 BP 93 / 58; Pulse 42; Resp 15; Pulse Ox 96% ; ko1 17:15 BP 87 / 54; Pulse 48; Resp 18; Pulse Ox 97% ; ko1 17:45 BP 93 / 55; Pulse 42; Resp 17; Pulse Ox 98% ; ko1 18:00 BP 104 / 60; Pulse 43; Resp 16; Pulse Ox 98% ; ko1 18:28 BP 109 / 56; Pulse 44; Resp 19; Pulse Ox 95% ; ko1 19:33 BP 119 / 67; Pulse 47; Resp 15 S; Pulse Ox 98% on R/A; ha1 20:47 BP 108 / 64; Pulse 44; Resp 17 S; Pulse Ox 98% on R/A; ha1 ED Course: 14:59 Patient arrived in ED. mg5 15:00 John Snowden MD is Attending Physician. rn 15:00 Patient has correct armband on for positive identification. Placed in gown. Bed in low ko1 position. Call light in reach. Side rails up X2. Provided Education on: na. Client placed on continuous cardiac and pulse oximetry monitoring. NIBP monitoring applied. oxyhydrogen welder on. Door closed. Noise minimized. Lights dimmed. Warm blanket given. Pillow given. 15:00 No provider procedures requiring assistance completed. Maintain EMS IV. Dressing ko1 intact. Good blood return noted. Site clean \T\ dry. Gauge \T\ site: 20g right FA. 15:01 Attending Physician role handed off by John Snowden MD ec2 15:01 Sujit Mccoy MD is Attending Physician. ec2 15:03 Elise Chauhan, KIRAN is Primary Nurse. ko1 15:07 Triage completed. ko1 15:07 Arm band placed on right wrist. Patient placed in an exam room, on director of cardiac rehabilitation, on ko1 pulse oximetry, Patient notified of wait time. 15:13 CT Head C Spine In Process Unspecified. EDMS 15:30 XRAY Chest (1 view) In Process Unspecified. EDMS 15:30 Pelvis XRAY In Process Unspecified. EDMS 16:14 Duke Blakely MD is Hospitalizing Provider. ec2 22:15 Patient admitted, IV remains in place. ha1 Administered Medications: 16:21 Drug: Ondansetron IVP 4 mg IVP once; over 2 minutes Route: IVP; Site: right wrist; iw 16:21 Drug: Rocephin IV 1 grams IV at calculated rate once; Given slow IV push per pharmacy iw instructions Route: IV; Rate: calculated rate; Site: right wrist; 16:22 Drug: AZITHromycin IVPB 500 mg IVPB once over 1 hrs; (mix in 250 mL NS) Route: IVPB; ko1 Infused Over: 1 hrs; Site: right forearm; 17:20 Drug: NS 0.9% IV 500 ml IV at bolus once Route: IV; Rate: bolus; Site: right forearm; iw 17:29 Drug: metoCLOPramide IVP 10 mg IVP once; over 1 to 2 minutes Route: IVP; Site: right ko1 forearm; Medication: 18:00 VIS not applicable for this client. ko1 Outcome: 15:00 Condition: stable ko1 15:00 Instructed on the need for admit, Demonstrated understanding of instructions, 16:14 Decision to Hospitalize by Provider. ec2 22:15 Admitted to Med/surg accompanied by tech, via stretcher, room 215, Report called to iris Carrera RN 22:27 Patient left the ED. rv Signatures: Dispatcher [employer] Madie Rosario RN RN John Snowden MD MD rn Vicente, Ronaldo, RN RN rv Ayala, Heidy, RN RN ha1 Oliver, Kathy, RN RN ko1 Gardner, Madison 5 Sujit Mccoy MD MD ec2
--- NOTE | 2023-11-07 16:15 | EDPHYS ---
Physician Documentation [facility] Name: Carlita Villalobos Age: 83 yrs Sex: Female : 1940 Arrival Date: 11/07/2023 Time: 14:46 Bed 5 Private MD: ED Physician Sujit Mccoy HPI: 11/07 15:04 This 83 yrs old Female presents to ER via Unassigned with complaints of ec2 weakness. 15:04 Patient arrives today for evaluation of generalized weakness as well as ground-level ec2 falls over the past day. Patient reports that she has been progressively getting weaker over the past several days, states that she required some assistance to the bathroom which is atypical for her. Patient reports no nausea or vomiting, no diarrhea symptoms. Patient reports some lower extremity edema. Patient reports no cough and cold symptoms, no difficulty breathing, no chest pain.. Historical: - Allergies: 15:07 Sulfa (Sulfonamide Antibiotics); ko1 - PMHx: 15:07 Diabetes - IDDM; Hypertension; Hypothyroidism; ko1 - PSHx: 15:07 back surgery; cardiac stents; colonscopy; hysterectomy; Tonsillectomy; ko1 - Immunization history:: Adult Immunizations unknown. - Social history:: Smoking status: Patient denies any tobacco usage or history of. ROS: 15:04 Constitutional: as per hpi ec2 Exam: 15:04 Constitutional: GEN: NAD Head: atraumatic Eyes: EOMI Ears: External ears are ec2 normal. CV: regular rate, 2+ lower extremity edema LUNGS: no respiratory distress, scattered rales ABD: non-distended SKIN: no evidence of rashes MSK: no evidence of trauma, no C/T/L-spine TTP bilateral upper extremities and lower extremities without deformities. NEURO: moves all extremities equally Vital Signs: 15:03 BP 162 / 70; Pulse 47; Resp 17; Temp 96.9; Pulse Ox 97% ; ko1 16:00 BP 120 / 71; Pulse 60; Resp 15; Pulse Ox 96% ; ko1 16:13 BP 160 / 80; Pulse 62; ec2 17:00 BP 93 / 58; Pulse 42; Resp 15; Pulse Ox 96% ; ko1 17:15 BP 87 / 54; Pulse 48; Resp 18; Pulse Ox 97% ; ko1 17:45 BP 93 / 55; Pulse 42; Resp 17; Pulse Ox 98% ; ko1 18:00 BP 104 / 60; Pulse 43; Resp 16; Pulse Ox 98% ; ko1 18:28 BP 109 / 56; Pulse 44; Resp 19; Pulse Ox 95% ; ko1 19:33 BP 119 / 67; Pulse 47; Resp 15 S; Pulse Ox 98% on R/A; ha1 20:47 BP 108 / 64; Pulse 44; Resp 17 S; Pulse Ox 98% on R/A; ha1 MDM: 15:00 Patient medically screened. rn 15:04 Data reviewed: vital signs. ED course: Patient arrives today for evaluation of ec2 generalized weakness as well as recurrent falls. Examination remarkable for lower extremity edema otherwise reassuring cardiac examination, does have Rales noted throughout the pulmonary examination. Will obtain lab work, CT imaging as well as x-rays. Currently considering processes such as urinary tract infection, volume overload, intracranial brain bleed, C-spine fracture.. 16:06 ED course: Metabolic profile shows slight hyponatremia with renal dysfunction of a ec2 creatinine of 3.4. CBC shows slight anemia. BNP elevated at 2800. Troponin within normal ranges. Chest x-ray shows pleural effusion, bilateral pulmonary opacities. Will treat for pneumonia. CT head and C-spine showed no acute traumatic process. Pelvis x-ray shows no bony fracture. Will admit for continued management of her pneumonia. . 11/07 15:03 Order name: Basic Metabolic Panel; Complete Time: 16:06 ec2 11/07 15:03 Order name: CBC with Diff; Complete Time: 16:06 ec2 11/07 15:03 Order name: NT PRO-BNP; Complete Time: 16:06 ec2 11/07 15:03 Order name: Troponin HS; Complete Time: 16:06 ec2 11/07 15:06 Order name: UAM ec2 11/07 16:41 Order name: Basic Metabolic Panel EDMS 11/07 16:41 Order name: Basic Metabolic Panel EDMS 11/07 16:41 Order name: Basic Metabolic Panel EDMS 11/07 16:41 Order name: Basic Metabolic Panel EDMS 11/07 16:41 Order name: CBC with Automated Diff EDMS 11/07 16:41 Order name: CBC with Automated Diff EDMS 11/07 16:41 Order name: CBC with Automated Diff EDMS 11/07 16:41 Order name: CBC with Automated Diff EDPR 11/07 16:41 Order name: Magnesium [facility] 11/07 16:42 Order name: Magnesium [facility] 11/07 16:42 Order name: Magnesium [facility] 11/07 16:42 Order name: Magnesium [facility] 11/07 15:03 Order name: XRAY Chest (1 view); Complete Time: 16:06 ec2 11/07 15:03 Order name: CT Head C Spine; Complete Time: 16:06 ec2 11/07 15:04 Order name: Pelvis XRAY; Complete Time: 16:06 ec2 11/07 19:33 Order name: CT [facility] 11/07 15:03 Order name: EKG; Complete Time: 15:04 ec2 11/07 16:41 Order name: CONS Physician Consult [facility] 11/07 16:41 Order name: Physical Therapy Consult [facility] 11/07 15:03 Order name: Cardiac monitoring; Complete Time: 15:09 ec2 11/07 15:03 Order name: EKG - Nurse/Tech; Complete Time: 15:50 ec2 11/07 15:03 Order name: IV Saline Lock; Complete Time: 15:09 ec2 11/07 15:03 Order name: Labs collected and sent; Complete Time: 15:50 ec2 11/07 15:03 Order name: O2 Per Protocol; Complete Time: 15:09 ec2 11/07 15:03 Order name: O2 Sat Monitoring; Complete Time: 15:09 ec2 Administered Medications: 16:21 Drug: Ondansetron IVP 4 mg IVP once; over 2 minutes Route: IVP; Site: right wrist; iw 16:21 Drug: Rocephin IV 1 grams IV at calculated rate once; Given slow IV push per pharmacy iw instructions Route: IV; Rate: calculated rate; Site: right wrist; 16:22 Drug: AZITHromycin IVPB 500 mg IVPB once over 1 hrs; (mix in 250 mL NS) Route: IVPB; ko1 Infused Over: 1 hrs; Site: right forearm; 17:20 Drug: NS 0.9% IV 500 ml IV at bolus once Route: IV; Rate: bolus; Site: right forearm; iw 17:29 Drug: metoCLOPramide IVP 10 mg IVP once; over 1 to 2 minutes Route: IVP; Site: right ko1 forearm; Disposition Summary: 11/07/23 16:14 Hospitalization Ordered Notes: Hospitalization Status: Inpatient Admission ec2 Provider: Duke Blakely ec2 Location: Telemetry/MedSurg (Inpatient) ec2 Condition: Stable ec2 Problem: new ec2 Symptoms: are unchanged ec2 Bed/Room Type: Standard ec2 Room Assignment: 215(11/07/23 17:32) mc5 Diagnosis - Unspecified bacterial pneumonia ec2 Forms: - Medication Reconciliation Form ec2 - SBAR form ec2 - Leadership Thank You Letter ec2 Signatures: Dispatcher [employer] Madie Rosario, KIRAN RN John Mccord MD MD rn Oliver, Kathy, RN RN Graciela Batista PA-C PACherry [email or web address] Noelle Wilson mc5 Sujit Mccoy MD MD ec2 Corrections: (The following items were deleted from the chart) 17:32 16:14 ec2 mc5
--- NOTE | 2023-11-07 16:50 | P.HP ---
Certification for Inpatient Patient admitted to: Inpatient With expected LOS: <2 Midnights Patient will require the following post-hospital care: None Practitioner: I am a practitioner with admitting privileges, knowledge of patient current condition, hospital course, and medical plan of care. Services: Services provided to patient in accordance with Admission requirements found in Title 42 Section 412.3 of the Code of Federal Regulations <Gisela Mayers - Last Filed: 11/07/23 18:07> Patient History Date of Service: 11/07/23 History of Present Illness: 83-year-old female with a past medical history of insulin-dependent diabetes, hypertension, hypothyroidism CKD stage V, presents to the emergency room with generalized weakness with reported falls over the last several days. Reports some mild lower extremity edema. No reported fever, nausea vomiting, diarrhea, chest pain shortness of breath. Plan to admit for pneumonia, weakness, frequent falls, acute on chronic kidney injury, ER evaluationBP 162 / 70; Pulse 47; Resp 17; Temp 96.9; Pulse Ox 97% ; Laboratory evaluation elevated BNP 2800, mild hyponatremia 130 CBC no leukocytosis, early left shift 86.7, microcytic anemia 8.980 7.4, BUN 64, creatinine 3.40, troponin within normal limits, chest x-ray pleural effusion with bilateral pulmonary opacities, CT of the head and C-spine no acute traumatic process, pelvics x-ray no bony fracture, UA pending - Past Medical/Surgical History Diabetic: Yes -: Diabetes mellitus type 2 insulin-dependent -: Hypothyroidism -: Atrial fibrillation not on chronic anti coagulation therapy -: COPD -: HTN -: History of MAC pulmonary infection -: CHF -: Anemia -: Frequent UTI's -: CKD IV (Dr. 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 - Family History Father -: Heart disease, Diabetes Notes: Sister -: Diabetes Mother -: Diabetes Brother -: Diabetes - Social History Alcohol use: Yes CD- Drugs: No Caffeine use: Yes <Gisela Mayers - Last Filed: 11/07/23 18:07> Date of Service: 11/08/23 <Duke Blakely - Last Filed: 11/08/23 05:47> Allergies Sulfa (Sulfonamide Antibiotics) Allergy (Intermediate, Verified 11/01/23 11:58) Nausea/Vomiting/flu like symptoms baclofen Adverse Reaction (Verified 11/01/23 11:58) Hallucinations Home Medications: Aspirin [Aspirin EC 81 MG] 81 mg PO DAILY 12/14/21 Cholecalciferol (Vitamin D3) [Vitamin D 1000 Iu Tab] 1,000 unit PO DAILY 12/14/21 Clopidogrel Bisulfate [Plavix] 75 mg PO DAILY 12/14/21 Memantine HCl 5 mg PO DAILY 12/14/21 Montelukast [Singulair] 10 mg PO DAILY 12/14/21 Insulin Degludec [Tresiba Flextouch U-100] 28 unit SQ DAILY 03/28/23 Mecobalamin [B12 Active] 1,000 mcg PO DAILY 03/28/23 Hydralazine [Apresoline*] 10 mg PO BID 06/25/23 Levothyroxine Sodium 75 mcg PO DAILY 06/25/23 Amiodarone HCl [Cordarone*] 200 mg PO DAILY 08/17/23 Review of Systems per HPI <Gisela Mayers - Last Filed: 11/07/23 18:07> Physical Examination - Physical Exam General: Alert, In no apparent distress, Oriented x3 HEENT: Atraumatic, Normocephalic Neck: Supple, 2+ carotid pulse no bruit Respiratory: Normal air movement, Crackles/rales Cardiovascular: Normal pulses, Regular rate/rhythm Gastrointestinal: Normal bowel sounds, Soft and benign Musculoskeletal: No clubbing, No swelling, Other (Moderate generalized weakness) Neurological: Normal speech, Normal strength at 5/5 x4 extr - Studies Laboratory Data (last 24 hrs) 11/07/23 11/07/23 15:20 15:20 WBC 5.60 RBC 3.32 L Hgb 8.9 L Hct 27.4 L MCV 82.8 MCH 26.9 L MCHC 32.5 RDW 19.0 H Plt Count 122 L MPV 10.0 Neutrophils % 86.7 H Lymphocytes % 5.2 L Monocytes % 6.0 Eosinophils % 1.3 Basophils % 0.8 Absolute Neutrophils 4.9 Absolute Lymphocytes 0.3 L Absolute Monocytes 0.3 Absolute Eosinophils 0.1 Absolute Basophils 0.0 Sodium 130 L Potassium 4.2 Chloride 98 Carbon Dioxide 24 Anion Gap 12.2 BUN 64 H Creatinine 3.40 H Est GFR (CKD-EPI) 13 L Glucose 110 H Calcium 8.4 L Troponin I High Sens 40.9 NT-Pro-B Natriuret Pep 2808 H <Gisela Mayers - Last Filed: 11/07/23 18:07> - Studies Laboratory Data (last 24 hrs) 11/07/23 11/07/23 15:20 15:20 WBC 5.60 Hgb 8.9 L Hct 27.4 L Plt Count 122 L Sodium 130 L Potassium 4.2 BUN 64 H Creatinine 3.40 H Glucose 110 H <Duke Blakely - Last Filed: 11/08/23 05:47> Assessment and Plan - Plan Assessment plan Acute hypoxic respiratory failure secondary to pneumonia CBC no leukocytosis, early left shift 86.7, IV azithromycin, ceftriaxone, nebs, O2 2 L keep sats greater than 90% BUN 64, creatinine 3.40, troponin within normal limits, chest x-ray pleural effusion with bilateral pulmonary opacities, UA pending Hypotension, Fluid bolus, trend vital signs, hold blood pressure meds Transferred to ICU if patient remains hypotensive Elevated BNP Trend BNP, BNP 2800 Frequent falls Generalized weakness generalized weakness with reported falls over the last several days. CT of the head and C-spine no acute traumatic process, pelvics x-ray no bony fracture Acute on chronic kidney injury, CKD stage V Reports some mild lower extremity edema. BUN 64, creatinine 3.40, troponin within normal limits, chest x-ray pleural effusion with bilateral pulmonary opacities, Nephrology consult mild hyponatremia na 130, gentle IV fluids microcytic anemia HH 8.9/ 7.4, trend H&H, transfuse hemoglobin less than 7 insulin-dependent diabetes hypertension hypothyroidism Diet renal Full code DVT SCDs Discharge Plan: Home Plan to discharge in: 48 Hours - Advance Directives Does patient have a Living Will: No Does patient have a Durable POA for Healthcare: No - Code Status/Comfort Care Code Status: Full Code Physician Review: Patient Assessed, Agree with Above Assessment and Plan Critical Care: No Time Spent Managing Pts Care (In Minutes): 60 <Gisela Mayers - Last Filed: 11/07/23 18:07> Date of Service: 11/07/23 patient's chart reviewed. Agree with as mentioned above. Patient is very cachectic and emaciated. According to the daughter patient has lost a lot a weight. Patient had a diagnosis of COPD last year. However, family not really aware of her COPD diagnosis. She did also have a right-sided pleural effusion which they do not know the etiology of which developed in June of this past year. Patient also has some interstitial lung changes from the past. Plan is to go ahead and do CT imaging of the chest get an echocardiogram to review cardiac functioning. Patient is also bradycardic and will get Cardiology consultation. Review patient's medications and check thyroid studies as well. Patient looks to be very frail at this point and since she is falling quite a bit according to the daughter she may need placement at a halfway facility. Will get physical therapy evaluation once patient is medically more stable. Will monitor patient's nutritional intake as well. Patient's long-term prognosis looks to be poor, but will get some more information regarding patient's labs and diagnostic studies once these are obtained. <Duke Blakely - Last Filed: 11/08/23 05:47>
[2023-11-07] MEDS ORDERED: NA CHLORIDE 0.9% 1,000 ML IV SCH ×2 (17:00→19:00)
[2023-11-07] MEDS ORDERED: NA CHLORIDE 0.9% 500 ML ONE (17:17)
[2023-11-07] MEDS ORDERED: METOCLOPRAMIDE 10 MG/2mL INJ ONE (17:30)
[2023-11-07] MEDS ORDERED: ALBUTEROL 2.5 MG/3 ML NEB SOL NEB PRN (18:29)
--- NOTE | 2023-11-07 19:32 | RAD REPORT ---
EXAM DESCRIPTION: CT - Thorax Wo Con CLINICAL HISTORY: Chest pain Multifocal pneumonia COMPARISON: Thorax Wo Con dated 05/26/2016 FINDINGS: Mild ground-glass opacities are present bilaterally. Mild area of consolidation is seen in the anterior right upper lobe. Moderate to large right pleural effusion. No pneumothorax. No axillary, mediastinal or hilar adenopathy. No concerning bony finding. No gross upper abdominal finding. All CT scans are performed using dose optimization technique as appropriate and may include automated exposure control or mA/KV adjustment according to patient size. IMPRESSION: Mild bilateral ground-glass opacities are seen with mild area of lung consolidation ante rior right upper lobe, likely pneumonia/ infiltrate. Moderate to large right pleural effusion.
[2023-11-07] MEDS: IPRATROPIUM BROM 0.5MG/2.5ML NEB SCH ×2 (20:00→23:30)
[2023-11-07] MEDS: ARFORMOTEROL TARTRATE 15 MCG/2 ML VIAL.NEB NEB SCH ×2 (20:00→23:31)
[2023-11-07] MEDS ORDERED: NA CHLORIDE 0.9% 1,000 ML ONE (21:12)
[2023-11-07 23:05] VITALS: BMI 24.0
[2023-11-08] MEDS: METHYLPREDNISOLONE 125 MG INJ IV SCH ×2 (00:37→06:31)
[2023-11-08] MEDS ORDERED: PIPER TAZO 3.375 GM in NA CHLORIDE 0.9% 100 ML IV SCH (01:00)
[2023-11-08] MEDS: LEVOTHYROXINE SOD 0.075 MG TAB PO SCH (06:31)
[2023-11-08 07:28] LABS: Absolute Lymphocytes (CBC) 0.1 K/uL (0.7-4.9); Hematocrit 30.8 % (36.0-45.0); MCV 83.5 fL (80-100); MPV 10.6 fL (7.6-11.3); Platelets 113 thou/uL (152-406); RBC Red Blood Cell Count 3.69 M/uL (3.86-4.86)
--- NOTE | 2023-11-08 07:32 | P.HP ---
Certification for Inpatient With expected LOS: <2 Midnights Patient will require the following post-hospital care: None Practitioner: I am a practitioner with admitting privileges, knowledge of patient current condition, hospital course, and medical plan of care. Services: Services provided to patient in accordance with Admission requirements found in Title 42 Section 412.3 of the Code of Federal Regulations Patient History Date of Service: 11/08/23 Reason for admission: acute on chronic kidney injury, pneumonia,bradycardia History of Present Illness: Ms. Villalobos is an 83 yo with many medical problems. She presented to the ED with generalized weakness, reported falls, and lower extremity edema. She states she has been short of breath for the five years since she had five heart stents placed. Allergies Sulfa (Sulfonamide Antibiotics) Allergy (Intermediate, Verified 11/01/23 11:58) Nausea/Vomiting/flu like symptoms baclofen Adverse Reaction (Verified 11/01/23 11:58) Hallucinations Home medications list reviewed: Yes Home Medications: Aspirin [Aspirin EC 81 MG] 81 mg PO DAILY 12/14/21 Cholecalciferol (Vitamin D3) [Vitamin D 1000 Iu Tab] 1,000 unit PO DAILY 12/14/21 Clopidogrel Bisulfate [Plavix] 75 mg PO DAILY 12/14/21 Memantine HCl 5 mg PO DAILY 12/14/21 Montelukast [Singulair] 10 mg PO DAILY 12/14/21 Insulin Degludec [Tresiba Flextouch U-100] 28 unit SQ DAILY 03/28/23 Mecobalamin [B12 Active] 1,000 mcg PO DAILY 03/28/23 Hydralazine [Apresoline*] 10 mg PO BID 06/25/23 Levothyroxine Sodium 75 mcg PO DAILY 06/25/23 Amiodarone HCl [Cordarone*] 200 mg PO DAILY 08/17/23 - Past Medical/Surgical History Has patient received pneumonia vaccine in the past: Yes Diabetic: Yes -: Diabetes mellitus type 2 insulin-dependent -: Hypothyroidism -: Atrial fibrillation not on chronic anti coagulation therapy -: COPD -: HTN -: History of MAC pulmonary infection -: CHF -: Anemia -: Frequent UTI's -: CKD IV (Dr. Rodriguez/ [facility]) -: Back surgery x2 -: Hysterectomy -: Bladder suspension -: Benign tumor removed from right arm -: Tonsillectomy -: Thyroid nodule removed with some thyroid 2008 -: Stent x5 Psychosocial/ Personal History: , 4-children, She does not work. - Family History Father -: Heart disease, Diabetes Notes: Sister -: Diabetes Mother -: Diabetes Brother -: Diabetes - Social History Smoking Status: Former smoker Alcohol use: No CD- Drugs: No Caffeine use: Yes Place of Residence: Home Review of Systems 10-point ROS is otherwise unremarkable General: Weakness, Malaise Respiratory: Cough, Shortness of Breath Physical Examination - Vital Signs Temperature: 97.7 F Blood Pressure: 140/70 Pulse: 61 Respirations: 17 Pulse Ox (%): 95 - Physical Exam General: Alert, In no apparent distress HEENT: Atraumatic, Normocephalic Neck: Supple, JVD not distended Respiratory: Crackles/rales Cardiovascular: Edema Capillary refill: <2 Seconds Gastrointestinal: Soft and benign, Other (scaphoid) Musculoskeletal: No clubbing Neurological: Normal speech Lymphatics: No axilla or inguinal lymphadenopathy External genitalia: Deferred Rectal: Deferred - Studies Laboratory Data (last 24 hrs) 11/07/23 11/07/23 15:20 15:20 WBC 5.60 Hgb 8.9 L Hct 27.4 L Plt Count 122 L Sodium 130 L Potassium 4.2 BUN 64 H Creatinine 3.40 H Glucose 110 H Assessment and Plan - Problems (Diagnosis) (1) Acute on chronic renal failure Current Visit: No Status: Acute Plan: Creatinine is trending at her recent baseline. Continue to trend creatinine, electrolytes, bicarb, replete as necessary Nephrology following Qualifiers: Acute renal failure type: unspecified Chronic kidney disease stage: stage 5, not on chronic dialysis Qualified Code(s): N17.9 - Acute kidney failure, unspecified; N18.5 - Chronic kidney disease, stage 5 (2) CHF exacerbation Current Visit: No Status: Acute Plan: Continue current home medications Last ECHO in June, will repeat Qualifiers: Heart failure type: unspecified Qualified Code(s): I50.9 - Heart failure, unspecified (3) COPD (chronic obstructive pulmonary disease) Onset Date: 05/26/16 Current Visit: No Status: Acute Plan: T,C, DB q 3 hours Incentive spirometer Out of bed with assist to chair TID Qualifiers: COPD type: COPD with acute exacerbation Qualified Code(s): J44.1 - Chronic obstructive pulmonary disease with (acute) exacerbation - Advance Directives Does patient have a Living Will: Yes Does patient have a Durable POA for Healthcare: Yes Physician Review: Patient Assessed, Agree with Above Assessment and Plan
[2023-11-08 07:44] LABS: Troponin High Sensitivity 36.9 pg/mL (<58.9)
[2023-11-08 07:45] LABS: Magnesium 1.9 mg/dL (1.6-2.4); Potassium 4.7 mEq/L (3.5-5.1); Thyroid Stimulating Hormone 3.38 uIU/mL (0.358-3.740)
[2023-11-08] MEDS: ARFORMOTEROL TARTRATE 15 MCG/2 ML VIAL.NEB NEB SCH ×2 (07:57→19:30)
[2023-11-08] MEDS: IPRATROPIUM BROM 0.5MG/2.5ML NEB SCH ×2 (07:57→19:28)
[2023-11-08 08:16] LABS: Blood Morphology Comment NOT SEEN (NOT SEEN); Platelet Estimate DECR; White Blood Cell Scan OK (OK)
--- NOTE | 2023-11-08 08:26 | P.CNS ---
Date of Consult: 11/08/23 Reason for Consult: Respiratory distress Chief Complaint: Weakness pleural effusion History of Present Illness: Patient is 83 years of age with a history of heart failure. 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 has any fever or chills Allergies Sulfa (Sulfonamide Antibiotics) Allergy (Intermediate, Verified 11/01/23 11:58) Nausea/Vomiting/flu like symptoms baclofen Adverse Reaction (Verified 11/01/23 11:58) Hallucinations Home Medications: Aspirin [Aspirin EC 81 MG] 81 mg PO DAILY 12/14/21 Cholecalciferol (Vitamin D3) [Vitamin D 1000 Iu Tab] 1,000 unit PO DAILY 12/14/21 Clopidogrel Bisulfate [Plavix] 75 mg PO DAILY 12/14/21 Memantine HCl 5 mg PO DAILY 12/14/21 Montelukast [Singulair] 10 mg PO DAILY 12/14/21 Insulin Degludec [Tresiba Flextouch U-100] 28 unit SQ DAILY 03/28/23 Mecobalamin [B12 Active] 1,000 mcg PO DAILY 03/28/23 Hydralazine [Apresoline*] 10 mg PO BID 06/25/23 Levothyroxine Sodium 75 mcg PO DAILY 06/25/23 Amiodarone HCl [Cordarone*] 200 mg PO DAILY 08/17/23 - Past Medical/Surgical History Diabetic: Yes -: Diabetes mellitus type 2 insulin-dependent -: Hypothyroidism -: Atrial fibrillation not on chronic anti coagulation therapy -: COPD -: HTN -: History of MAC pulmonary infection -: CHF -: Anemia -: Frequent UTI's -: CKD IV (Dr. Rodriguez/ [facility]) -: Back surgery x2 -: Hysterectomy -: Bladder suspension -: Benign tumor removed from right arm -: Tonsillectomy -: Thyroid nodule removed with some thyroid 2008 -: Stent x5 Psychosocial/ Personal History: , 4-children, She does not work. - Family History Father Medical History: Heart disease, Diabetes Notes: Sister Medical History: Diabetes Mother Medical History: Diabetes Brother Medical History: Diabetes - Social History Smoking Status: Former smoker Alcohol use: No CD- Drugs: No Caffeine use: Yes Place of Residence: Home Review of Systems 10-point ROS is otherwise unremarkable General: Weakness Respiratory: Shortness of Breath Physical Examination Temp Pulse Resp BP Pulse Ox 97.7 F 61 17 140/70 95 11/08/23 07:47 11/08/23 07:47 11/08/23 07:47 11/08/23 07:47 11/08/23 07:47 General: Alert, Oriented x3 Respiratory: Clear to auscultation bilaterally, Diminished Cardiovascular: No edema, Regular rate/rhythm, Normal S1 S2 Gastrointestinal: Normal bowel sounds, Soft and benign Musculoskeletal: No clubbing, No swelling Laboratory Data (last 24 hrs) 11/07/23 11/07/23 15:20 15:20 WBC 5.60 Hgb 8.9 L Hct 27.4 L Plt Count 122 L Sodium 130 L Potassium 4.2 BUN 64 H Creatinine 3.40 H Glucose 110 H - Problems (1) Congestive heart failure Current Visit: Yes Status: Acute Plan: Nico is 83 years of age with a history of coronary artery disease admitted with worsening dyspnea and right-sided pleural effusion diffuse bilateral changes I suspect that she has underlying congestive heart failure in addition patient has acute on chronic renal failure evidence of sepsis history of A-fib and has diabetes manage aggressive diuresis for now dynamically stable oxygenation satisfactory BNP is 2649 Qualifiers: Heart failure chronicity: unspecified
[2023-11-08] MEDS: ACETAMINOPHEN 500 MG TAB PO PRN (09:05)
[2023-11-08] MEDS: AMIODARONE HCL 200 MG TAB PO SCH (09:06)
[2023-11-08] MEDS: CLOPIDOGREL 75 MG TABLET PO SCH (09:06)
[2023-11-08] MEDS: ASPIRIN EC 81 MG TAB PO SCH (09:06)
[2023-11-08] MEDS: FUROSEMIDE 40 MG/4 ML VIAL IV SCH ×2 (09:11→21:20)
--- NOTE | 2023-11-08 09:39 | P.PN ---
Subjective Date of Service: 11/08/23 Chief Complaint: acute on chronic kidney injury, pneumonia,bradycardia nurse reported patient coughing with po intake today, moderate generalized weakness, out of bed to chair today, daughter at bedside, - Physical Exam General: Alert, In no apparent distress, Oriented x3 HEENT: Atraumatic, Normocephalic Neck: Supple, 2+ carotid pulse no bruit Respiratory: Normal air movement, Crackles/rales Cardiovascular: Normal pulses, Regular rate/rhythm Gastrointestinal: Normal bowel sounds, Soft and benign Musculoskeletal: No clubbing, No swelling, Other (Moderate generalized weakness) Neurological: Normal speech, Normal strength at 5/5 x4 extr <Gisela Mayers - Last Filed: 11/08/23 16:43> Date of Service: 11/08/23 <Riley Stone - Last Filed: 11/08/23 20:53> Review of Systems per HPI <Gisela Mayers - Last Filed: 11/08/23 16:43> Physical Examination - Vital Signs Temperature: 97.0 F Blood Pressure: 142/65 Pulse: 60 Respirations: 14 Pulse Ox (%): 97 - Studies Laboratory Data (last 24 hrs) 11/07/23 11/07/23 15:20 15:20 WBC 5.60 Hgb 8.9 L Hct 27.4 L Plt Count 122 L Sodium 130 L Potassium 4.2 BUN 64 H Creatinine 3.40 H Glucose 110 H <Gisela Mayers - Last Filed: 11/08/23 16:43> Assessment And Plan - Plan Assessment plan Acute hypoxic respiratory failure secondary to pneumonia Pulmonary consulted CBC no leukocytosis, early left shift 86.7, IV azithromycin, ceftriaxone, nebs, O2 2 L keep sats greater than 90% BUN 64, creatinine 3.40, troponin within normal limits, chest x-ray pleural effusion with bilateral pulmonary opacities, Pulmonary consult Eval for thoracentesis right-sided pleural effusion with diffuse bilateral changes Hypotension, Elevated BNP Card consulted, ECHO ordered, midodine added for hypotension Fluid bolus, trend vital signs, hold blood pressure meds Transferred to ICU if patient remains hypotensive Trend BNP, BNP 2800, troponin within normal limits, Echocardiogram COMMENTS: 1. NORMAL LEFT VENTRICULAR EJECTION FRACTION 60-65% WITH NORMAL WALL MOTION 2. MODERATE DIASTOLIC DYSFUNCTION 3. SEVERELY DILATED RIGHT ATRIUM 4. SEVERE TRICUSPID REGURGITATION 5. MILD MITRAL REGURGITATION Frequent falls Generalized weakness generalized weakness with reported falls over the last several days. CT of the head and C-spine no acute traumatic process, pelvics x-ray no bony fracture PT consult dysphagia Speech eval for Dietitian consult added for calorie count nurse reported patient coughing with po intake today Acute on chronic kidney injury, CKD stage V Reports some mild lower extremity edema. BUN 64, creatinine 3.40, chest x-ray pleural effusion with bilateral pulmonary opacities, Nephrology consult Nephrology Worsening kidney function, due to diastolic congestive heart failure, pulmonary hypertension, plan to continue with IV Lasix, labile hypotension, mild hyponatremia na 130, gentle IV fluids microcytic anemia HH 8.9/ 7.4, trend H&H, transfuse hemoglobin less than 7 insulin-dependent diabetes hypertension hypothyroidism Diet renal Full code DVT SCDs Discharge Plan: Home Physician Review: Patient Assessed, Agree with Above Assessment and Plan Critical Care: No Time Spent Managing PTS Care (In Minutes): 35 <Gisela Mayers - Last Filed: 11/08/23 16:43> Physician Review: Patient Assessed, Agree with Above Assessment and Plan Physician Review Additional Text: No new changes. Continue IV antibiotics. Nephrology and Pulmonology consulted - recs appreciated. Riley Stone M.D. <Riley Stone - Last Filed: 11/08/23 20:53>
--- NOTE | 2023-11-08 11:25 | P.CNS ---
Date of Consult: 11/08/23 Reason for Consult: Renal insufficiency Requesting Physician: Gisela Mayers Chief Complaint: acute on chronic kidney injury, pneumonia,bradycardia History of Present Illness: Pt is a elderly 83-year-old female with a past medical history of insulin-dependent diabetes without mention of specific complications, chronic hypertension, advanced CKD with worsening of renal function on last admission back in Jun, who presented to the emergency room with generalized weakness, shortness of breath and other that per pt/daughter came on relatively quickly. Chest imaging revealed pleural effusion with pulmonary opacities. Pt off O2 when seen, no resp distress. Allergies Sulfa (Sulfonamide Antibiotics) Allergy (Intermediate, Verified 11/01/23 11:58) Nausea/Vomiting/flu like symptoms baclofen Adverse Reaction (Verified 11/01/23 11:58) Hallucinations Home Medications: Aspirin [Aspirin EC 81 MG] 81 mg PO DAILY 12/14/21 Cholecalciferol (Vitamin D3) [Vitamin D 1000 Iu Tab] 1,000 unit PO DAILY 12/14/21 Clopidogrel Bisulfate [Plavix] 75 mg PO DAILY 12/14/21 Memantine HCl 5 mg PO DAILY 12/14/21 Montelukast [Singulair] 10 mg PO DAILY 12/14/21 Insulin Degludec [Tresiba Flextouch U-100] 28 unit SQ DAILY 03/28/23 Mecobalamin [B12 Active] 1,000 mcg PO DAILY 03/28/23 Hydralazine [Apresoline*] 10 mg PO BID 06/25/23 Levothyroxine Sodium 75 mcg PO DAILY 06/25/23 Amiodarone HCl [Cordarone*] 200 mg PO DAILY 08/17/23 - Past Medical/Surgical History Diabetic: Yes -: Diabetes mellitus type 2 insulin-dependent -: Hypothyroidism -: Atrial fibrillation not on chronic anti coagulation therapy -: COPD -: HTN -: History of MAC pulmonary infection -: CHF -: Anemia -: Frequent UTI's -: CKD IV (Dr. Rodriguez/ [facility]) -: Back surgery x2 -: Hysterectomy -: Bladder suspension -: Benign tumor removed from right arm -: Tonsillectomy -: Thyroid nodule removed with some thyroid 2008 -: Stent x5 Psychosocial/ Personal History: , 4-children, She does not work. - Family History Father Medical History: Heart disease, Diabetes Notes: Sister Medical History: Diabetes Mother Medical History: Diabetes Brother Medical History: Diabetes - Social History Smoking Status: Former smoker Alcohol use: No CD- Drugs: No Caffeine use: Yes Place of Residence: Home Review of Systems General: Weakness Eyes: Unremarkable ENT: Unremarkable Respiratory: Cough, Shortness of Breath Cardiovascular: Edema, As per HPI Gastrointestinal: Unremarkable Genitourinary: Other (Reduced UOP at home) Musculoskeletal: As per HPI Integumentary: Unremarkable Neurological: Weakness, As per HPI Physical Examination Temp Pulse Resp BP Pulse Ox 97.0 F 60 14 142/65 H 97 11/08/23 09:55 11/08/23 09:55 11/08/23 09:55 11/08/23 09:55 11/08/23 09:55 General: Alert, Cooperative HEENT: Atraumatic, Normocephalic, Other (Not currently on O2) Neck: JVD distended Respiratory: Normal air movement, Other (Reduced BS at bases) Cardiovascular: Regular rate/rhythm, Systolic murmur Gastrointestinal: Soft and benign, Non-distended, No tenderness, No guarding Musculoskeletal: No tenderness, No warmth, Swelling Integumentary: No rashes Neurological: Normal speech, Normal tone, Normal affect Laboratory Data (last 24 hrs) 11/07/23 11/07/23 15:20 15:20 WBC 5.60 Hgb 8.9 L Hct 27.4 L Plt Count 122 L Sodium 130 L Potassium 4.2 BUN 64 H Creatinine 3.40 H Glucose 110 H Conclusions/Impression: A/P) 1. Stage I LEE ANN back in Jun on underlying advanced CKD, probable late Stage IV (although eGFR calculators not well validated in the v.elderly) then in the setting of multifactorial etiology with renal function never recovering to prior levels and Cr level on this admission similar to levels seen prior to discharge in late Jun 2. No emergent indication for TENT ASSEMBLER yet but risk for dialysis dependence discussed although pt hesitant but will review/consider when acutely indicated. 3. Chronic diastolic CHF, pulm HTN, (non rheumatic) -pt reports increase in weight and peripheral edema. Cont IV lasix 4. Chronic hypertensive CKD. Labile HTN with hypotension briefly on admission. Hold other scheduled anti hypertensives while on Lasix and with may have some pre load dependence so will monitor closely 5. PNA unspecified. Pleural effusion NOS -management per IM, dose Abx for reduced CrCl, eval for thoracentesis Tawanda Brooks MD, SULEMAN
[2023-11-08] MEDS: SODIUM BICARB 325 MG TAB PO SCH ×2 (12:20→21:22)
--- NOTE | 2023-11-08 13:22 | EKG ---
Test Date: 2023-11-07 Test Time: 15:29:40 Major Appliance Assembly Supervisor: PH MEASUREMENT RESULTS: Intervals: Rate: 47 SC: QRSD: 104 QT: 546 QTc: 483 [place]: P: SC: QRS: 99 T: 119 INTERPRETIVE STATEMENTS: Sinus bradycardia Rightward axis Pulmonary disease pattern Incomplete right bundle branch block Septal infarct, age undetermined Abnormal ECG Right-axis deviation now present Incomplete right bundle-branch block now present Myocardial infarct finding still present Electronically Signed On 11-08-23 13:19:24 APPLICATIONS SUPPORT SPECIALIST by Jose C Kruse
--- NOTE | 2023-11-08 14:07 | ECHO ---
HEIGHT: 5 ft 4 in WEIGHT: 139 lb 12.8 oz DATE OF STUDY: 11/08/[address]: Duke Blakely MD 2-DIMENSIONAL: YES M.MODE: YES DOPPLER: YES COLOR FLOW: YES TDS: PORTABLE: YES DEFINITY: BUBBLE STUDY: DIAGNOSIS: CONGESTIVE HEART FAILURE CARDIAC HISTORY: CATHERIZATION: SURGERY: NO PROSTHETIC VALVE: NO PACEMAKER: NO MEASUREMENTS (cm) DIASTOLIC (NORMALS) SYSTOLIC (NORMALS) IVSd 1.0 (0.6-1.2) LA Diam 2.3 (1.9-4.0) LVEF 66% LVIDd 3.0 (3.5-5.7) LVIDs 2.0 (2.0-3.5) %FS 35% LVPWd 1.0 (0.6-1.2) Ao Diam 2.3 (2.0-3.7) 2 DIMENSIONAL ASSESSMENT: RIGHT ATRIUM: ENLARGED LEFT ATRIUM: NORMAL RIGHT VENTRICLE: NORMAL LEFT VENTRICLE: NORMAL TRICUSPID VALVE: SEVERE TRICUSPID REGURGITATION MITRAL VALVE: MILD MITRAL REGURGITATION PULMONIC VALVE: MILD PULMONIC INSUFFICIENCY AORTIC VALVE: CALCIFIED AORTIC VALVE PERICARDIAL EFFUSION: NONE AORTIC ROOT: NORMAL LEFT VENTRICULAR WALL MOTION: NORMAL DOPPLER/COLOR FLOW: SEE BELOW COMMENTS: 1. NORMAL LEFT VENTRICULAR EJECTION FRACTION 60-65% WITH NORMAL WALL MOTION 2. MODERATE DIASTOLIC DYSFUNCTION 3. SEVERELY DILATED RIGHT ATRIUM 4. SEVERE TRICUSPID REGURGITATION 5. MILD MITRAL REGURGITATION TECHNOLOGIST: IVÁN EVANS
[2023-11-08] MEDS: MIDODRINE HCL 5 MG TABLET PO SCH ×2 (16:10→21:00)
[2023-11-08] MEDS ORDERED: D50W 25 GM/50 ML SYRINGE IV PRN (20:44)
[2023-11-08] MEDS ORDERED: GLUCAGON 1 MG/VIAL IM PRN (20:44)
[2023-11-08] MEDS ORDERED: D10W 125 ML IV PRN (20:48)
[2023-11-08] MEDS: GLUCERNA SHAKE 237 ML CAN PO SCH (21:00)
[2023-11-08] MEDS: INSULIN REGULAR (HUMAN) 100 UNIT/ML IV SCH (21:00)
[2023-11-08] MEDS: DOXYCYCLINE 100 MG in NA CHLORIDE 0.9% 100 ML IVPB SCH (21:21)
[2023-11-08] MEDS: CEFTRIAXONE 1,000 MG in NA CHLORIDE 0.9% 50 ML IVPB SCH (21:21)
[2023-11-09 02:28] LABS: Absolute Lymphocytes (CBC) 0.1 K/uL (0.7-4.9); Hematocrit 28.1 % (36.0-45.0); Lymphocytes % 2.2 % (15.3-44.8); MCV 83.8 fL (80-100); MPV 10.8 fL (7.6-11.3); Platelets 113 thou/uL (152-406); RBC Red Blood Cell Count 3.35 M/uL (3.86-4.86)
[2023-11-09 02:53] LABS: Magnesium 1.8 mg/dL (1.6-2.4); Potassium 5.1 mEq/L (3.5-5.1)
[2023-11-09] MEDS: INSULIN REGULAR (HUMAN) 100 UNIT/ML IV SCH ×2 (03:28→07:30)
[2023-11-09] MEDS: LEVOTHYROXINE SOD 0.075 MG TAB PO SCH (06:36)
--- NOTE | 2023-11-09 07:38 | P.PN ---
Subjective Date of Service: 11/09/23 <Riley Stone - Last Filed: 11/09/23 17:00> Date of Service: 11/09/23 Chief Complaint: acute on chronic kidney injury, pneumonia,bradycardia No urine output, daughter at bedside, no reported coughing with meals - Physical Exam General: Alert, In no apparent distress, Oriented x3 HEENT: Atraumatic, Normocephalic Neck: Supple, 2+ carotid pulse no bruit Respiratory: Normal air movement, Crackles/rales Cardiovascular: Normal pulses, Regular rate/rhythm Gastrointestinal: Normal bowel sounds, Soft and benign Musculoskeletal: No clubbing, No swelling, Other (Moderate generalized weakness) Neurological: Normal speech, Normal strength at 5/5 x4 extr <WagnermorrisGisela - Last Filed: 11/09/23 18:27> Review of Systems per HPI <Gisela Mayers Last Filed: 11/09/23 18:27> Physical Examination - Vital Signs Temperature: 97.0 F Blood Pressure: 115/59 Pulse: 56 Respirations: 16 Pulse Ox (%): 95 <TalibGisela Last Filed: 11/09/23 18:27> Assessment And Plan Physician Review: Patient Assessed, Agree with Above Assessment and Plan Physician Review Additional Text: No new changes today. Her creatinine has worsened. Appreciate Nephrology recommendations. Riley Stone M.D. <Riley Stone - Last Filed: 11/09/23 17:00> - Plan Assessment plan Acute hypoxic respiratory failure secondary to pneumonia vs secondary FVO from acute renal failrue Pulmonary consulted CBC no leukocytosis, early left shift 86.7, IV azithromycin, ceftriaxone, nebs, O2 2 L keep sats greater than 90% BUN 64, creatinine 3.40, troponin within normal limits, chest x-ray pleural effusion with bilateral pulmonary opacities, Pulmonary consult Eval for thoracentesis right-sided pleural effusion with diffuse bilateral changes Hypotension, Elevated BNP Card consulted, ECHO ordered, midodine added for hypotension Fluid bolus, trend vital signs, hold blood pressure meds Transferred to ICU if patient remains hypotensive Trend BNP, BNP 2800, troponin within normal limits, midrodine added, BP improved 115 systolic Echocardiogram COMMENTS: 1. NORMAL LEFT VENTRICULAR EJECTION FRACTION 60-65% WITH NORMAL WALL MOTION 2. MODERATE DIASTOLIC DYSFUNCTION 3. SEVERELY DILATED RIGHT ATRIUM 4. SEVERE TRICUSPID REGURGITATION 5. MILD MITRAL REGURGITATION Frequent falls Generalized weakness generalized weakness with reported falls over the last several days. CT of the head and C-spine no acute traumatic process, pelvics x-ray no bony fracture PT consult dysphagia Speech eval for Dietitian consult added for calorie count nurse reported patient coughing with po intake today Swallow study FINDINGS: No evidence of laryngeal penetration or aspiration. Vallecular residues, cleared with additional swallows and subsequent thin liquid swallows. IMPRESSION: No evidence of laryngeal penetration or jaime aspiration. Acute Renal Failure Acute on chronic kidney injury, CKD stage V Reports some mild lower extremity edema. BUN 64, creatinine 3.40, chest x-ray pleural effusion with bilateral pulmonary opacities, Nephrology consult Nephrology Worsening kidney function, due to diastolic congestive heart failure, pulmonary hypertension, plan to continue with IV Lasix, labile hypotension, placed on lasix drip, no urine output, discussed HD with nephrology during this hospital admission, surgery consult to eval HD placement mild hyponatremia na 130, gentle IV fluids microcytic anemia HH 8.9/ 7.4, trend H&H, transfuse hemoglobin less than 7 insulin-dependent diabetes hypertension hypothyroidism Diet renal Full code DVT SCDs Discharge Plan: Home - Code Status/Comfort Care Code Status: Full Code Physician Review: Patient Assessed, Agree with Above Assessment and Plan Critical Care: No Time Spent Managing PTS Care (In Minutes): 35 <Gisela Mayers - Last Filed: 11/09/23 18:27>
[2023-11-09] MEDS ORDERED: D50W 25 GM/50 ML SYRINGE IV PRN (07:39)
[2023-11-09] MEDS ORDERED: GLUCAGON 1 MG/VIAL IM PRN (07:39)
[2023-11-09] MEDS: ARFORMOTEROL TARTRATE 15 MCG/2 ML VIAL.NEB NEB SCH ×2 (08:00)
[2023-11-09] MEDS: IPRATROPIUM BROM 0.5MG/2.5ML NEB SCH ×2 (08:00→19:01)
[2023-11-09] MEDS: GLUCERNA SHAKE 237 ML CAN PO SCH ×2 (09:00→21:00)
[2023-11-09] MEDS: MIDODRINE HCL 5 MG TABLET PO SCH ×3 (09:00→21:00)
--- NOTE | 2023-11-09 09:36 | P.PN ---
Subjective Date of Service: 11/09/23 Chief Complaint: Acute on chronic diastolic heart failure acute on chronic renal failure Subjective: Improving (Patient's condition is improving still feeling very weak) Review of Systems General: Weakness Respiratory: Shortness of Breath Physical Examination - Vital Signs Temperature: 97.0 F Blood Pressure: 115/59 Pulse: 56 Respirations: 16 Pulse Ox (%): 95 - Physical Exam General: Alert, In no apparent distress, Oriented x3 Respiratory: Clear to auscultation bilaterally, Diminished Cardiovascular: No edema, Normal pulses Assessment And Plan - Current Problems (Diagnosis) (1) Congestive heart failure Current Visit: Yes Status: Acute Plan: Patient is 83 years of age admitted with acute on chronic diastolic heart failure worsening renal failure most likely volume overload there is no evidence of sepsis no evidence of pneumonia can DC antibiotics start on Lasix albumin drip DC IV Lasix blood sugars are elevated needed to be controlled I suspect is from the steroids that were initially given to the patient need to resume her insulin Qualifiers: Heart failure chronicity: unspecified Physician Review: Patient Assessed, Agree with Above Assessment and Plan
[2023-11-09] MEDS: AMIODARONE HCL 200 MG TAB PO SCH (09:37)
[2023-11-09] MEDS: SODIUM BICARB 325 MG TAB PO SCH ×2 (09:37→21:00)
[2023-11-09] MEDS: ASPIRIN EC 81 MG TAB PO SCH (09:38)
[2023-11-09] MEDS: DOXYCYCLINE 100 MG in NA CHLORIDE 0.9% 100 ML IVPB SCH ×2 (09:38→21:19)
[2023-11-09] MEDS: CLOPIDOGREL 75 MG TABLET PO SCH (09:38)
[2023-11-09] MEDS: FUROSEMIDE 40 MG/4 ML VIAL IV SCH ×2 (09:39→21:19)
[2023-11-09] MEDS: INSULIN REGULAR (HUMAN) 100 UNIT/ML SQ SCH ×4 (09:53→21:00)
[2023-11-09] MEDS: ALBUMIN HUMAN 25% 12.5 GM, FUROSEMIDE 100 MG in NA CHLORIDE 0.9% 40 ML IV SCH ×2 (10:12→15:00)
--- NOTE | 2023-11-09 11:58 | P.PN ---
(S) Pt's renal function tests worse, UOP not quantified, pt acknowledges dyspnea but no resp distress and not on O2 at rest. Peripheral edema worse. Had a long discussion with pt and daughters about renal function, trend and indications for HD as well as the process of dialysis catheter placement, HD and associates risks/benefits, etc. They plan to discuss further and decide. (O) Vitals reviewed in the EMR General: Alert, Cooperative HEENT: Atraumatic, Normocephalic, Other (Not currently on O2) Neck: JVD distended Respiratory: Normal air movement, Other (Reduced BS at bases) Cardiovascular: Regular rate/rhythm, Systolic murmur Gastrointestinal: Soft and benign, Non-distended, No tenderness, No guarding Musculoskeletal: No tenderness, No warmth, Swelling, dependent edema to the thighs Integumentary: No rashes Neurological: Normal speech, Normal tone, Normal affect Laboratory Data (last 24 hrs) Reviewed in the EMR Conclusions/Impression: A/P) 1. Stage I LEE ANN back in Jun on underlying advanced CKD, probable late Stage IV (although eGFR calculators not well validated in the v.elderly) then in the setting of multifactorial etiology with renal function never recovering to prior levels and Cr level on this admission similar to levels seen prior to discharge in late Jun and now worse and with Cr level now > 4 mg/dl that qualifies either as a Stage III ARF on her underlying CKD IV vs further loss of residual function and progression to Stage V Regardless of terminology, renal function is worse and pt does have signs of fluid overload. Azotemia mod currently and without overt uremia. Discussed indications for HD, pt/family to consider/decide. In the interim, will place on IV Lasix 2. Dyspnea with b/l pulm infiltrates reflecting possible cardiogenic pulm edema vs pneumonitis/PNA, Pulm feels it is more of the former. Ordered IV lasix. Abx per Pulm/IM 3. Chronic diastolic CHF, pulm HTN, (non rheumatic). TTE on this admission more notable for RA dilation, TR which could be contributing to renal vein congestion. 4. Chronic hypertensive CKD. Labile HTN with hypotension briefly on admission. Hold other scheduled anti hypertensives while on Lasix and with may have some pre load dependence so will monitor closely 5. Pleural effusion NOS -management per IM, dose Abx for reduced CrCl, eval for thoracentesis Tawanda Anwar, MD, FASN
--- NOTE | 2023-11-09 15:33 | RAD REPORT ---
EXAM DESCRIPTION: RAD - Barium Swallow Modified - 11/09/2023 2:33 pm CLINICAL HISTORY: Difficulty swallowing COMPARISON: None. TECHNIQUE: The patient was given liquid, semi-solid and solid forms of barium. Lateral view fluorosc opic imaging was performed in conjunction with speech pathology service. Fluoro time: 1.35 minute. Skin dose: 9.48 mGy FINDINGS: No evidence of laryngeal penetration or aspiration. Vallecular residues, cleared with ronda tional swallows and subsequent thin liquid swallows. IMPRESSION: No evidence of laryngeal penetration or jaime aspiration.
[2023-11-09] MEDS: CEFTRIAXONE 1,000 MG in NA CHLORIDE 0.9% 50 ML IVPB SCH (21:19)
[2023-11-10 03:48] LABS: Absolute Lymphocytes (CBC) 0.2 K/uL (0.7-4.9); Hematocrit 28.8 % (36.0-45.0); Lymphocytes % 1.2 % (15.3-44.8); MCV 82.6 fL (80-100); MPV 10.6 fL (7.6-11.3); RBC Red Blood Cell Count 3.49 M/uL (3.86-4.86)
[2023-11-10 03:55] LABS: Platelets 170 thou/uL (152-406)
[2023-11-10 04:00] LABS: Phosphorus 6.9 mg/dL (2.5-4.9); Potassium 5.1 mEq/L (3.5-5.1)
[2023-11-10] MEDS: LEVOTHYROXINE SOD 0.075 MG TAB PO SCH (06:29)
[2023-11-10] MEDS: ONDANSETRON 4 MG/2 ML VIAL IV PRN ×2 (06:36→15:52)
[2023-11-10] MEDS: INSULIN REGULAR (HUMAN) 100 UNIT/ML SQ SCH ×4 (07:30→20:49)
--- NOTE | 2023-11-10 07:35 | P.PN ---
Subjective Date of Service: 11/10/23 Chief Complaint: acute on chronic kidney injury, pneumonia,bradycardia daughter at bedside, seen sitting up in chair, no acute distress - Physical Exam General: Alert, In no apparent distress, Oriented x3 HEENT: Atraumatic, Normocephalic Neck: Supple, 2+ carotid pulse no bruit Respiratory: Normal air movement, Crackles/rales Cardiovascular: Normal pulses, Regular rate/rhythm Gastrointestinal: Normal bowel sounds, Soft and benign Musculoskeletal: No clubbing, No swelling, Other (Moderate generalized weakness) Neurological: Normal speech, Normal strength at 5/5 x4 extr <Gisela Mayres - Last Filed: 11/10/23 14:16> Date of Service: 11/10/23 <Riley Stone - Last Filed: 11/10/23 18:24> Review of Systems per HPI <Gisela Mayers - Last Filed: 11/10/23 14:16> Physical Examination - Vital Signs Temperature: 97.8 F Blood Pressure: 148/79 Pulse: 71 Respirations: 14 Pulse Ox (%): 94 <Gisela Mayers - Last Filed: 11/10/23 14:16> Assessment And Plan - Plan Assessment plan Acute hypoxic respiratory failure secondary to pneumonia vs secondary FVO from acute renal failrue Pulmonary consulted CBC no leukocytosis, early left shift 86.7, IV azithromycin, ceftriaxone, nebs, O2 2 L keep sats greater than 90% BUN 64, creatinine 3.40, troponin within normal limits, chest x-ray pleural effusion with bilateral pulmonary opacities, Pulmonary consult Eval for thoracentesis right-sided pleural effusion with diffuse bilateral changes likely secondary to fluid Leukocytosis, acute 11/10 11/10 WBCs 3.30->14.0 worsening Blood cultures, attempted get urine cultures cultures, Hypotension, improved Elevated BNP worsening Card consulted, ECHO ordered, midodine added for hypotension Fluid bolus, trend vital signs, hold blood pressure meds Transferred to ICU if patient remains hypotensive Trend BNP, BNP 2800, BNP 3211 troponin within normal limits, midrodine added, BP improved 115 systolic Echocardiogram COMMENTS: 1. NORMAL LEFT VENTRICULAR EJECTION FRACTION 60-65% WITH NORMAL WALL MOTION 2. MODERATE DIASTOLIC DYSFUNCTION 3. SEVERELY DILATED RIGHT ATRIUM 4. SEVERE TRICUSPID REGURGITATION 5. MILD MITRAL REGURGITATION Frequent falls Generalized weakness generalized weakness with reported falls over the last several days. CT of the head and C-spine no acute traumatic process, pelvics x-ray no bony fracture PT consult dysphagia Speech eval for Dietitian consult added for calorie count nurse reported patient coughing with po intake today Swallow study FINDINGS: No evidence of laryngeal penetration or aspiration. Vallecular residues, cleared with additional swallows and subsequent thin liquid swallows. IMPRESSION: No evidence of laryngeal penetration or jaime aspiration. Acute Renal Failure Acute on chronic kidney injury, CKD stage V Reports some mild lower extremity edema. BUN 64, creatinine 3.40, chest x-ray pleural effusion with bilateral pulmonary opacities, BUN 89 creatinine 4.24 Nephrology consult Nephrology Worsening kidney function, due to diastolic congestive heart failure, pulmonary hypertension, plan to continue with IV Lasix, labile hypotension, placed on lasix drip, no urine output, discussed HD with nephrology during this hospital admission, surgery consult to eval HD placement 11/10 Surgery consulted for hemodialysis catheter Patient treated with Ancef prior to procedure, consents obtained mild hyponatremia na 130, 127 gentle IV fluids, microcytic anemia HH 8.9/ 7.4, trend H&H, transfuse hemoglobin less than 7 insulin-dependent diabetes hypertension hypothyroidism Diet renal Full code DVT SCDs Discharge Plan: Home - Code Status/Comfort Care Code Status: Full Code Critical Care: No Time Spent Managing PTS Care (In Minutes): 35 <Gisela Mayers - Last Filed: 11/10/23 14:16> Physician Review: Patient Assessed, Agree with Above Assessment and Plan Physician Review Additional Text: She and her daughter have elected to proceed with hemodialysis. I spoke with Dr. Castillo, who plans to place hemodialysis catheter today. Appreciate Nephrology recommendations. Riley Stone MD <Riley Stone - Last Filed: 11/10/23 18:24>
[2023-11-10] MEDS: IPRATROPIUM BROM 0.5MG/2.5ML NEB SCH ×2 (07:50→20:48)
[2023-11-10] MEDS: FUROSEMIDE 40 MG/4 ML VIAL IV SCH ×2 (08:08→17:00)
[2023-11-10] MEDS: DOXYCYCLINE 100 MG in NA CHLORIDE 0.9% 100 ML IVPB SCH ×2 (08:08→20:00)
[2023-11-10] MEDS: AMIODARONE HCL 200 MG TAB PO SCH (08:09)
[2023-11-10] MEDS: GLUCERNA SHAKE 237 ML CAN PO SCH ×2 (08:09→20:00)
[2023-11-10] MEDS: ASPIRIN EC 81 MG TAB PO SCH (08:09)
[2023-11-10] MEDS: MIDODRINE HCL 5 MG TABLET PO SCH ×3 (08:10→21:00)
[2023-11-10] MEDS: SODIUM BICARB 325 MG TAB PO SCH ×2 (08:10→20:00)
[2023-11-10] MEDS: CLOPIDOGREL 75 MG TABLET PO SCH (08:10)
[2023-11-10] MEDS ORDERED: NA CHLORIDE 0.9% 500 ML ONE (11:56)
[2023-11-10] MEDS ORDERED: MIDAZOLAM HCL 2 MG/2 ML INJ ONE (12:05)
[2023-11-10] MEDS ORDERED: propofoL 200 MG/20 ML VIAL IV ONE (12:05)
[2023-11-10] MEDS ORDERED: LIDOCAINE 1% MPF 5 ML VIAL ONE (12:05)
[2023-11-10] MEDS ORDERED: ONDANSETRON 4 MG/2 ML VIAL ONE (12:05)
[2023-11-10] MEDS ORDERED: FENTANYL CITR 100 MCG/2 ML ONE (12:05)
[2023-11-10] MEDS ORDERED: CEFAZOLIN SODIUM 1 GM/VIAL ONE (12:10)
[2023-11-10] MEDS ORDERED: NA CHLORIDE 0.9% 100 ML ONE (12:27)
[2023-11-10] MEDS ORDERED: HEPARIN 5000 UNIT/ML 1 ML VIAL ONE (12:29)
[2023-11-10] MEDS ORDERED: EPHEDRINE SULF 50 MG/ML VIAL ONE (13:49)
[2023-11-10] MEDS: HEPARIN 5000 UNIT/ML 1 ML VIAL ONE ×4 (13:50→13:57)
--- NOTE | 2023-11-10 14:12 | P.BOP ---
Preoperative diagnosis: ESRD Postoperative diagnosis: same Primary procedure: 1. Placement of tunneled cuffed hemodialysis catheter R IJV Secondary procedure: 2. Interpretation of fluoroscopy Other procedure(s): 3. Right neck ultrasound Estimated blood loss: <20cc Specimen: none Findings: compressible jugular Anesthesia: General Complications: None Implants: hemosplit Transferred to: Recovery Room Condition: Good
[2023-11-10] MEDS ORDERED: TRAMADOL 37.5mg/APAP 325mg PER TAB PO PRN (14:17)
--- NOTE | 2023-11-10 14:34 | RAD REPORT ---
EXAM DESCRIPTION: RADChest Single View11/10/2023 2:28 pm CLINICAL HISTORY: Device placement/central venous catheter placement IMPRESSION: Central venous catheter has been placed into the superior vena cava. No pneumothorax
--- NOTE | 2023-11-10 14:37 | RAD REPORT ---
EXAM DESCRIPTION: RAD - Fluoroscopy <1 Hour - 11/10/2023 2:11 pm CLINICAL HISTORY: Device placement central venous catheter placement FINDINGS: A central venous catheter was placed into the superior vena cava. 9 fluoroscopic spot imag es are submitted. Fluoroscopy time.3 minutes The examination was performed by Dr. Castillo
--- NOTE | 2023-11-10 15:51 | CON ---
Date of Consultation: 11/10/2023 Diagnosis: Renal failure. History Of Present Illness: This is the case of a female, who was admitted few days ago with a lower extremity edema, weakness, short of breath, admitted to the hospital, eventually diagnosed with jose f l failure. They were trying to treat her with Lasix and some other diuretic, but today they will meet e decision with renal doctor that patient needs dialysis. Initially, I contacted the surgeon television mechanic , but he is not doing the cuff catheter and they want the tunneled catheter. I was in the hospital d oing some other consults and the family preferred the tunneled catheter, so I was called in and since I am in the hospital, I decided to see the patient and trying to help with this situation. I discus sed the case with the primary doctor, with the nurse practitioner on the case, with the patient, with the patient's daughters present and discussed the case also with Dr. Nava. That being said, they still want the tunneled hemodialysis catheter. The dialysis center nurse also contacted me to make sure if possible the cuffed tunneled catheter. Allergies: SULFA, . Medications: Include aspirin, Plavix, Singulair, Apresoline, and Cordarone. Medical History: Diabetes, hypothyroidism, AFib, COPD, hypertension, congestive heart failure, anemi a. Past Surgical History: Includes hysterectomy, bladder suspension, tonsillectomy, thyroid surgery, ca rdiac stent x5. Family History: Includes diabetes. Social History: Does not smoke. Does not drink alcohol. Review of Systems: See HPI. No shortness of breath. No chest pain. No fever. Physical Examination: General: Patient is awake, alert. HEENT: Pupils are equal and reactive. Anicteric. Neck: Supple. Chest: Clear. Abdomen: Soft and depressible. Extremities: Good capillary refill. Laboratory Data: Blood work shows WBC count of 14, with hemoglobin of 9.3, and platelets of 170. Po tassium is 5.1, creatinine is 4.24, BUN is 89. UA is still pending. Assessment: This is 83-year-old patient in need for hemodialysis today. The dialysis nurse did cont act me, the primary doctor, the nurse practitioner, and the surgeon. We are going to go ahead and pr oceed with the placement of hemodialysis catheter with benefits, alternatives, and risks fully explai italia to her and to the family, which include, but not limited to infection, bleeding, damage to adjace nt structures, anesthesia complication, pneumothorax, hemothorax, a pericardial tamponade, pulmonary edema, deep vein thrombosis, myocardial infarction, and even . She also understands this may no t relieve her symptoms. She might need more than one surgical intervention. They also understand th is is a temporary catheter. As soon as they discovered it is going to be permanent, they should look for a vascular surgeon who will do permanent access in [place] to then place a permanent access and then this temporary catheter should be removed. The patient was then booked in the OR. DEANNA/DULCE MARIA Voice ID: [id number] Report ID: [id number]
[2023-11-10 18:42] LABS: Hepatitis B Core IgM Nonreactive (Nonreactive); Hepatitis B surface AG Interp. Nonreactive (Nonreactive)
--- NOTE | 2023-11-10 18:42 | OP ---
Date of Procedure: 11/10/2023 Surgeon: Dmitry Castillo MD Preoperative Diagnosis: End-stage renal disease. Postoperative Diagnosis: End-stage renal disease. Procedures: 1.Placement of a tunneled cuffed hemodialysis catheter in the right internal jugular vein. 2.Interpretation of fluoroscopy. 3.Right neck ultrasound. Estimated Blood Loss: Less than 20 mL. Specimens: None. Findings: Compressible jugular. Anesthesia: General. Complications: None. Implant: HemoSplit hemodialysis catheter. Indication: This is the case of an 83-year-old patient, in need of an emergent hemodialysis. I was contacted to put a cuffed hemodialysis catheter. The benefits, alternatives, and risks were fully ex plained to the patient and family, which include, but not limited to infection, bleeding, damage to a djacent structures, anesthesia, complication, hemothorax, pneumothorax, DVTs, PEs, [place], even . S he also understands this may not relieve any symptoms, she might need more than one surgical interven tion. She understands also this is a temporary catheter and should be removed as soon as not needed by the Renal Service. She also have rather a situation, she is very thin, she is on blood thinners, but at the same time it is not safe to reverse at this moment with the possibility of other complicat ions, so I discussed that with the primary doctor. We are going to go ahead and proceed accordingly since the patient has dialysis today. We explained the risks and benefits of that. Family agreed. Signed a consent. Procedure In Detail: The patient was brought to the operating room, placed in supine position. Anes thesia was without complication. Right neck and chest were prepped and draped in sterile fashion. A time-out was called. Ultrasound of the neck was done to find the right internal jugular vein and wi thout guidance, we proceeded to put an 18-gauge needle in the right internal jugular vein at the firs t attempt. The patient is already under the Trendelenburg position. A guidewire was placed through, got into superior vena cava. Fluoroscopy needle was removed. A small incision was made in the righ t upper chest and we tunneled the catheter HemoSplit from that area to the neck incision. Serial dil ators were done under fluoroscopy after the guidewire until we put the introducer sheath. The guidew froy was removed. The catheter was placed in and introducer sheath was peeled off. Excellent backflo w and inflow. This was done under fluoroscopy. The patient tolerated the procedure well. The 2-0 c hromic was used to close the subcutaneous tissue in the neck and 2-0 nylon to secure the catheter in place. No bleeding. The patient tolerated the procedure well. Dressings placed in that area. The patient was brought back to normal position and the patient sent to recovery and a chest x-ray was or dered stat. DEANNA/MODStephan Voice ID: [id number] Report ID: [id number]
[2023-11-10 18:46] LABS: Hepatitis B Surface Ab - Quant < 3.10 mIU/mL (<8.0)
--- NOTE | 2023-11-10 18:53 | PN ---
Date of Progress Note: 11/10/2023 Subjective: The patient was seen and examined at bedside. She is doing okay. She just got back fro m surgery and she is a little sedated and confused. Physical Examination: Vital Signs: Reviewed and are stable. Her daughter is at bedside. HEENT: Atraumatic head. Right IJ tunneled dialysis catheter in place. Abdomen: Soft and nontender. Extremities: No evidence of edema. Neurologic: She is alert and awake, but confused. Laboratory Data: At this time are showing creatinine worsening to 4.24, potassium of 5.1, BUN of 89, and sodium of 127. CBC showing WBC count of 14,000, hemoglobin of 9.3, hematocrit is 28.8, and plat elet count of 170. Impression: 1.Stage IV CKD, possibly progressing to ESRD. The patient and her daughter have been updated in det ail at this time with her worsening volume status and renal function. She will be initiated on dialy sis today for the first time. They are in agreement. 2.Dyspnea with pulmonary infiltrates. Continue ultrafiltration cautiously with dialysis. 3.Chronic diastolic heart failure with aortic stenosis. The patient will be followed up by Cardiolo gy as outpatient and continue gentle ultrafiltration and volume status management through dialysis. 4.Pleural effusions. Plan per above. May need thoracentesis. Plan: Overall the patient is clinically stable. We will plan for dialysis today and continue gentle ultrafiltration challenge and monitor her volume status closely. VV/MODL Voice ID: [id number] Report ID: [id number]
[2023-11-10] MEDS: CEFTRIAXONE 1,000 MG in NA CHLORIDE 0.9% 50 ML IVPB SCH (20:01)
--- NOTE | 2023-11-11 02:57 | P.PN ---
Subjective Date of Service: 11/11/23 Chief Complaint: acute on chronic kidney injury, pneumonia,bradycardia Physical Examination - Vital Signs Temperature: 96.9 F Blood Pressure: 108/52 Pulse: 57 Respirations: 18 Pulse Ox (%): 91 Assessment And Plan - Current Problems (Diagnosis) (1) Acute on chronic renal failure Current Visit: No Status: Acute Plan: Creatinine is trending at her recent baseline. Continue to trend creatinine, electrolytes, bicarb, replete as necessary Nephrology following Qualifiers: Acute renal failure type: unspecified Chronic kidney disease stage: stage 5, not on chronic dialysis Qualified Code(s): N17.9 - Acute kidney failure, unspecified; N18.5 - Chronic kidney disease, stage 5 (2) CHF exacerbation Current Visit: No Status: Acute Plan: Continue current home medications Last ECHO in June, will repeat 11/09/23 ECHO with LVEF 66%, pt family discussing hemodialysis. Cardiology will sign off Qualifiers: Heart failure type: unspecified Qualified Code(s): I50.9 - Heart failure, unspecified (3) COPD (chronic obstructive pulmonary disease) Onset Date: 05/26/16 Current Visit: No Status: Acute Plan: T,C, DB q 3 hours Incentive spirometer Out of bed with assist to chair TID Qualifiers: COPD type: COPD with acute exacerbation Qualified Code(s): J44.1 - Chronic obstructive pulmonary disease with (acute) exacerbation Physician Review: Patient Assessed, Agree with Above Assessment and Plan
[2023-11-11 04:03] LABS: Absolute Lymphocytes (CBC) 0.2 K/uL (0.7-4.9); Hematocrit 26.6 % (36.0-45.0); Lymphocytes % 3.4 % (15.3-44.8); MCV 82.3 fL (80-100); MPV 10.2 fL (7.6-11.3); Platelets 118 thou/uL (152-406); RBC Red Blood Cell Count 3.23 M/uL (3.86-4.86)
[2023-11-11 04:32] LABS: Albumin 2.2 g/dL (3.4-5.0); Bilirubin Total 0.4 mg/dL (0.2-1.0); Magnesium 1.8 mg/dL (1.6-2.4); Potassium 4.2 mEq/L (3.5-5.1); Protein, Total 6.2 g/dL (6.4-8.2)
[2023-11-11] MEDS: LEVOTHYROXINE SOD 0.075 MG TAB PO SCH (06:53)
[2023-11-11] MEDS: INSULIN REGULAR (HUMAN) 100 UNIT/ML SQ SCH ×4 (07:30→20:32)
[2023-11-11] MEDS: IPRATROPIUM BROM 0.5MG/2.5ML NEB SCH ×2 (07:42→19:50)
--- NOTE | 2023-11-11 08:07 | P.PN ---
Subjective Date of Service: 11/11/23 Chief Complaint: acute on chronic kidney injury, pneumonia,bradycardia resting in bed, no acute distress, small amount of urine output, moderate generalized weakness - Physical Exam General: Alert, In no apparent distress, Oriented x3 HEENT: Atraumatic, Normocephalic Neck: Supple, Resp: evn unlabored, crackles bases Cardiovascular: Normal pulses, Regular rate/rhythm, +1 LLE, SB rate 57 Gastrointestinal: Normal bowel sounds, Soft and benign Musculoskeletal: No clubbing, No swelling, Other (Moderate generalized weakness) Neurological: Normal speech, Normal strength at 5/5 x4 extr <Willam Mayersy - Last Filed: 11/11/23 12:29> Date of Service: 11/11/23 <Riley Stone - Last Filed: 11/11/23 18:07> Review of Systems per HPI <Gisela Mayers - Last Filed: 11/11/23 12:29> Physical Examination - Vital Signs Temperature: 96.8 F Blood Pressure: 121/58 Pulse: 56 Respirations: 18 Pulse Ox (%): 91 <Gisela Mayers - Last Filed: 11/11/23 12:29> Assessment And Plan - Plan Assessment plan Acute hypoxic respiratory failure secondary to pneumonia vs secondary FVO from acute renal failure improving Pulmonary consulted, HD initiated 11/10 CBC no leukocytosis, early left shift 86.7, IV azithromycin, ceftriaxone, nebs, O2 2 L keep sats greater than 90% BUN 64, creatinine 3.40, troponin within normal limits, chest x-ray pleural effusion with bilateral pulmonary opacities, Pulmonary consult Eval for thoracentesis right-sided pleural effusion with diffuse bilateral changes likely secondary to fluid Leukocytosis, acute improved 11/10 WBCs 3.30->14.0 worsening 11/11 improved WBC 8.0 follow Blood cultures Hypotension resolved 11/11 VS stable improving Elevated BNP improving Card consulted, ECHO ordered, midodine added for hypotension Fluid bolus, trend vital signs, hold blood pressure meds Transferred to ICU if patient remains hypotensive Trend BNP, BNP 2800, BNP 3211 troponin within normal limits, BNP 2670 midrodine added, BP improved 115 systolic Echocardiogram COMMENTS: 1. NORMAL LEFT VENTRICULAR EJECTION FRACTION 60-65% WITH NORMAL WALL MOTION 2. MODERATE DIASTOLIC DYSFUNCTION 3. SEVERELY DILATED RIGHT ATRIUM 4. SEVERE TRICUSPID REGURGITATION 5. MILD MITRAL REGURGITATION Frequent falls Generalized weakness generalized weakness with reported falls over the last several days. CT of the head and C-spine no acute traumatic process, pelvics x-ray no bony fracture PT consulted, dysphagia improved Speech eval for Dietitian consult added for calorie count nurse reported patient coughing with po intake today Swallow study FINDINGS: No evidence of laryngeal penetration or aspiration. Vallecular residues, cleared with additional swallows and subsequent thin liquid swallows. IMPRESSION: No evidence of laryngeal penetration or jaime aspiration. Acute Renal Failure improving Acute on chronic kidney injury, CKD stage V improving Reports some mild lower extremity edema. BUN 64, creatinine 3.40, chest x-ray pleural effusion with bilateral pulmonary opacities, BUN 89 creatinine 4.24 Nephrology consult Nephrology Worsening kidney function, due to diastolic congestive heart failure, pulmonary hypertension, plan to continue with IV Lasix, labile hypotension, placed on lasix drip, no urine output, discussed HD with nephrology during this hospital admission, surgery consult to eval HD placement 11/10 Surgery consulted for hemodialysis catheter Patient treated with Ancef prior to procedure, consents obtained HD Started 11/11 BUN 89/4.24/GFR 10->51/3.06/GFR 15 Transaminitis AST 71/ALT 95/ALK PHOS 140 trend LFT mild hyponatremia improving na 130, 127 gentle IV fluids, NA 127->131 microcytic anemia-stable HH 8.9/ 7.4, trend H&H, transfuse hemoglobin less than 7 insulin-dependent diabetes hypertension hypothyroidism Diet renal Full code DVT SCDs Discharge Plan: Home - Code Status/Comfort Care Code Status: Full Code Critical Care: No Time Spent Managing PTS Care (In Minutes): 35 <Gisela Mayers - Last Filed: 11/11/23 12:29> Physician Review: Patient Assessed, Agree with Above Assessment and Plan Physician Review Additional Text: She had hemodialysis yesterday and tolerated it well. She denies any issues this morning. Appreciate Nephrology recommendations. Riley Stone M.D. <Riley Stone - Last Filed: 11/11/23 18:07>
[2023-11-11] MEDS: CLOPIDOGREL 75 MG TABLET PO SCH (08:38)
[2023-11-11] MEDS: SODIUM BICARB 325 MG TAB PO SCH ×2 (08:38→20:32)
[2023-11-11] MEDS: ASPIRIN EC 81 MG TAB PO SCH (08:39)
[2023-11-11] MEDS: AMIODARONE HCL 200 MG TAB PO SCH (08:39)
[2023-11-11] MEDS: MIDODRINE HCL 5 MG TABLET PO SCH ×3 (08:39→20:32)
[2023-11-11] MEDS: GLUCERNA SHAKE 237 ML CAN PO SCH ×2 (09:00→20:32)
[2023-11-11] MEDS: FUROSEMIDE 40 MG/4 ML VIAL IV SCH ×2 (09:00→17:26)
--- NOTE | 2023-11-11 09:02 | RAD REPORT ---
EXAM DESCRIPTION: RAD - Chest Single View - 11/11/2023 6:53 am CLINICAL HISTORY: chf/pneumonia Chest pain. COMPARISON: <Comparisons> FINDINGS: Portable technique limits examination quality. Moderate bilateral pulmonary opacities are present, slightly greater on the right, likely representin g pulmonary edema or pneumonia. Overall, right-sided lung aeration has slightly worsened since yester day's study. The heart is mildly enlarged in size. Right-sided venous catheter has tip in the SVC. IMPRESSION: Mild worsening in right lung aeration since comparative study.
[2023-11-11] MEDS: DOXYCYCLINE 100 MG in NA CHLORIDE 0.9% 100 ML IVPB SCH ×2 (09:55→20:31)
[2023-11-11] MEDS: CEFTRIAXONE 1,000 MG in NA CHLORIDE 0.9% 50 ML IVPB SCH (20:31)
--- NOTE | 2023-11-11 23:25 | P.PN ---
Date of Service: 11/11/23 Vital Signs Temp Pulse Resp BP Pulse Ox 96.8 F 57 18 136/63 90 L 11/11/23 16:00 11/11/23 17:26 11/11/23 16:00 11/11/23 17:26 11/11/23 16:00 Medications Acetaminophen (Acetaminophen 500 Mg Tab) 500 mg PO Q4HP PRN PRN Reason: Pain scale 2-4 (Mild) Last Admin: 11/08/23 09:05 Dose: 500 mg Albuterol Sulfate (Albuterol 2.5 Mg/3 Ml Neb Argelia) 2.5 mg NEB [id number] PRN PRN Reason: SHORTNESS OF BREATH Amiodarone HCl (Amiodarone Hcl 200 Mg Tab) 200 mg PO DAILY [facility] Last Admin: 11/11/23 08:39 Dose: 200 mg Aspirin (Aspirin Ec 81 Mg Tab) 81 mg PO DAILY [facility] Last Admin: 11/11/23 08:39 Dose: 81 mg Clopidogrel Bisulfate (Clopidogrel 75 Mg Tablet) 75 mg PO DAILY [facility] Last Admin: 11/11/23 08:38 Dose: 75 mg Enteral Nutritional Formula (Glucerna Shake 237 Ml Can) 237 ml PO BID [facility] Last Admin: 11/11/23 20:32 Dose: 237 ml Furosemide (Furosemide 40 Mg/4 Ml Vial) 40 mg IV BIDL [facility] Last Admin: 11/11/23 17:26 Dose: 40 mg Glucagon (Glucagon 1 Mg/Vial) 1 mg IM 1X PRN; Protocol PRN Reason: HYPOGLYCEMIA Heparin Sodium (Porcine) (Heparin 1,000 Unit/Ml Vial) 6,000 unit IV EVERY HD PRN PRN Reason: FOR DIALYSIS CATHETER CARE Last Admin: 11/10/23 18:46 Dose: 6,000 unit Heparin Sodium (Porcine) (Heparin 1,000 Unit/Ml Vial) 2,000 unit IV EVERY HD PRN PRN Reason: Prevent HD System Clotting. Dextrose (Dextrose 10% Water Iv Soln.) 125 mls @ 0 mls/hr IV PRN PRN; Protocol PRN Reason: HYPOGLYCEMIA Last Admin: 11/10/23 06:51 Dose: 125 mls Doxycycline Hyclate 100 mg/ (Sodium Chloride) 100 mls @ 100 mls/hr IVPB Q12HR [facility]; Protocol Last Admin: 11/11/23 20:31 Dose: 100 mls Ceftriaxone Sodium 1,000 mg/ (Sodium Chloride) 50 mls @ 100 mls/hr IVPB Q24H [facility]; Protocol Last Admin: 11/11/23 20:31 Dose: 50 mls Insulin Human Regular (Insulin Regular (Human) 100 Unit/Ml) 0 unit SQ ACHS [facility]; Protocol Last Admin: 11/11/23 20:32 Dose: Not Given Ipratropium [place] (Ipratropium Brom 0.5mg/2.5ml) 0.5 mg NEB BIDRESP [facility] Last Admin: 11/11/23 19:50 Dose: 0.5 mg Levothyroxine Sodium (Levothyroxine Sod 0.075 Mg Tab) 0.075 mg PO DAILYAC [facility] Last Admin: 11/11/23 06:53 Dose: 0.075 mg Midodrine (Midodrine Hcl 5 Mg Tablet) 5 mg PO TID [facility] Last Admin: 11/11/23 20:32 Dose: Not Given Ondansetron HCl (Ondansetron 4 Mg/2 Ml Vial) 4 mg IV Q6HP PRN PRN Reason: NAUSEA / VOMITING Last Admin: 11/10/23 15:52 Dose: 4 mg Sodium Bicarbonate (Sodium Bicarb 325 Mg Tab) 650 mg PO BID [facility] Last Admin: 11/11/23 20:32 Dose: 650 mg Tramadol/Acetaminophen (Tramadol 37.5mg/Apap 325mg Per Tab) 1 tab PO Q6H PRN PRN Reason: Pain scale 5-7 (Moderate) Assessment/ Plan: Nephrology No dyspnea No chest pain Feeling better No acute events overnight Vitals, medications, blood work and imaging reviewed in the chart. NAD. NCAT. MMM. Neck supple. Normal respiratory effort. RRR. Abd ND. No C/C. LE Edema 2+. No rash. AAO. Normal speech. LEFT VENTRICULAR WALL MOTION: NORMAL DOPPLER/COLOR FLOW: SEE BELOW COMMENTS: 1. NORMAL LEFT VENTRICULAR EJECTION FRACTION 60-65% WITH NORMAL WALL MOTION 2. MODERATE DIASTOLIC DYSFUNCTION 3. SEVERELY DILATED RIGHT ATRIUM 4. SEVERE TRICUSPID REGURGITATION 5. MILD MITRAL REGURGITATION Stage III LEE ANN CKD V with Proteinuria -No NSAIDs -HD initiated -HBV negative -Dialysis placement pending Hyponatremia -HD as ordered Hypotension -Continue Midodrine Diastolic CHF, A/C Severe TR -Continue Lasix -HD with UF DM II with Hyperglycemia and CKD -RISS Hypoalbuminemia -Consider Nepro Anemia in chronic illness Thrombocytopenia Hx Iron Deficiency -Monitor CBC CKD MBD -Start Ergo and Calcitriol Case reviewed with Dr. Stone
[2023-11-12 03:46] LABS: Absolute Lymphocytes (CBC) 0.2 K/uL (0.7-4.9); Bilirubin Total 0.3 mg/dL (0.2-1.0); Lymphocytes % 2.1 % (15.3-44.8); MCV 82.8 fL (80-100); MPV 10.7 fL (7.6-11.3); Magnesium 1.9 mg/dL (1.6-2.4); Platelets 108 thou/uL (152-406); Potassium 4.6 mEq/L (3.5-5.1); Protein, Total 6.1 g/dL (6.4-8.2); RBC Red Blood Cell Count 3.38 M/uL (3.86-4.86)
[2023-11-12 04:58] LABS: Blood Morphology Comment NOTED (NOT SEEN); Hypochromasia 1+; Platelet Estimate ADEQ
[2023-11-12] MEDS: LEVOTHYROXINE SOD 0.075 MG TAB PO SCH (06:08)
[2023-11-12] MEDS: IPRATROPIUM BROM 0.5MG/2.5ML NEB SCH ×2 (08:00→19:56)
[2023-11-12] MEDS: DOXYCYCLINE 100 MG in NA CHLORIDE 0.9% 100 ML IVPB SCH (08:29)
[2023-11-12] MEDS: INSULIN REGULAR (HUMAN) 100 UNIT/ML SQ SCH ×4 (08:31→20:30)
[2023-11-12] MEDS: ASPIRIN EC 81 MG TAB PO SCH (08:32)
[2023-11-12] MEDS: SODIUM BICARB 325 MG TAB PO SCH (08:32)
[2023-11-12] MEDS: GLUCERNA SHAKE 237 ML CAN PO SCH ×2 (08:32→20:30)
[2023-11-12] MEDS: AMIODARONE HCL 200 MG TAB PO SCH (08:32)
[2023-11-12] MEDS: CLOPIDOGREL 75 MG TABLET PO SCH (08:32)
[2023-11-12] MEDS: FUROSEMIDE 40 MG/4 ML VIAL IV SCH ×2 (08:32→16:51)
[2023-11-12] MEDS: MIDODRINE HCL 5 MG TABLET PO SCH ×3 (08:33→20:31)
[2023-11-12] MEDS: CALCITROL 0.25 MCG CAP PO SCH (09:46)
[2023-11-12] MEDS: DOCUSATE NA 100 MG CAP PO SCH ×2 (09:46→20:30)
[2023-11-12] MEDS: MULTIVITAMINS,THERAPEUT 1 TAB PO SCH (09:46)
--- NOTE | 2023-11-12 10:14 | P.PN ---
Subjective Date of Service: 11/12/23 Chief Complaint: acute on chronic kidney injury, pneumonia,bradycardia 11/12 tolerated HD, no complaints, resting in bed, no acute distress, small amount of urine output, moderate generalized weakness - Physical Exam General: Alert, In no apparent distress, Oriented x3 HEENT: Atraumatic, Normocephalic Neck: Supple, Resp: evn unlabored, crackles bases Cardiovascular: Normal pulses, Regular rate/rhythm, +1 LLE, SB rate 57 Gastrointestinal: Normal bowel sounds, Soft and benign Musculoskeletal: No clubbing, No swelling, Other (Moderate generalized weakness) Neurological: Normal speech, Normal strength at 5/5 x4 extr <Gisela Mayers - Last Filed: 11/12/23 18:30> Date of Service: 11/12/23 <Dilan Julian - Last Filed: 11/12/23 18:51> Review of Systems per HPI <Gisela Mayers - Last Filed: 11/12/23 18:30> Physical Examination - Vital Signs Temperature: 97.0 F Blood Pressure: 138/57 Pulse: 55 Respirations: 16 Pulse Ox (%): 96 <Gisela Mayers - Last Filed: 11/12/23 18:30> Assessment And Plan - Plan Assessment plan Acute hypoxic respiratory failure secondary to pneumonia vs secondary FVO from acute renal failure improving Pulmonary consulted, HD initiated 11/10 CBC no leukocytosis, early left shift 86.7, (11/12 WBC 7.70, Left shift 82.1) IV azithromycin, ceftriaxone, nebs, O2 2 L keep sats greater than 90% troponin within normal limits, chest x-ray pleural effusion with bilateral pulmonary opacities, Pulmonary consult Eval for thoracentesis (started on lasix gtt) right-sided pleural effusion with diffuse bilateral changes likely secondary to fluid Leukocytosis, acute improved 11/10 WBCs 3.30->14.0 worsening 11/11 improved WBC 8.0, (11/12 WBC 7.70, Left shift 82.1) follow Blood cultures Hypotension resolved 11/11 VS stable 121/58 improving on midrodine Elevated BNP improving Card consulted, ECHO ordered, midodine added for hypotension Fluid bolus, trend vital signs, hold blood pressure meds Transferred to ICU if patient remains hypotensive Trend BNP, BNP 2800, BNP 3211 troponin within normal limits, BNP 2670, 2625 midrodine added, BP improved 115 systolic Echocardiogram COMMENTS: 1. NORMAL LEFT VENTRICULAR EJECTION FRACTION 60-65% WITH NORMAL WALL MOTION 2. MODERATE DIASTOLIC DYSFUNCTION 3. SEVERELY DILATED RIGHT ATRIUM 4. SEVERE TRICUSPID REGURGITATION 5. MILD MITRAL REGURGITATION Frequent falls Generalized weakness generalized weakness with reported falls over the last several days. CT of the head and C-spine no acute traumatic process, pelvics x-ray no bony fracture PT consulted, dysphagia improved Speech eval for Dietitian consult added for calorie count nurse reported patient coughing with po intake today Swallow study FINDINGS: No evidence of laryngeal penetration or aspiration. Vallecular residues, cleared with additional swallows and subsequent thin liquid swallows. IMPRESSION: No evidence of laryngeal penetration or jaime aspiration. Acute Renal Failure improving hyponatremia Acute on chronic kidney injury, CKD stage V improving Reports some mild lower extremity edema. BUN 64, creatinine 3.40, chest x-ray pleural effusion with bilateral pulmonary opacities, BUN 89 creatinine 4.24, BUN 66/3.51 est GFR 12 Nephrology consult Nephrology Worsening kidney function, due to diastolic congestive heart failure, pulmonary hypertension, plan to continue with IV Lasix, labile hypotension, placed on lasix drip, no urine output, discussed HD with nephrology during this hospital admission, surgery consult to eval HD placement 11/10 Surgery consulted for hemodialysis catheter Patient treated with Ancef prior to procedure, consents obtained HD Started 11/11 BUN 89/4.24/GFR 10->51/3.06/GFR 15 11/12 tolerated HD, no complaints, Transaminitis AST 71/ALT 95/ALK PHOS 140 trend LFT mild hyponatremia improving na 130, 127 gentle IV fluids, NA 127->131 microcytic anemia-stable HH 8.9/ 7.4,HH 9.1/28.1 trend H&H, transfuse hemoglobin less than 7 insulin-dependent diabetes hypertension hypothyroidism Diet renal Full code DVT SCDs Discharge Plan: Home - Code Status/Comfort Care Code Status: Full Code Critical Care: No Time Spent Managing PTS Care (In Minutes): 35 <Gisela Mayers - Last Filed: 11/12/23 18:30> - Plan Pt seen and examined. I agree with the note by the HEALTHCARE ADMINISTRATIVE ASSISTANT. Pt is waiting for outpt dialysis chair set up <Dilan Julian - Last Filed: 11/12/23 18:51>
[2023-11-12] MEDS: MANNITOL 25% 12.5 GM/50 ML VIAL IV PRN (10:45)
--- NOTE | 2023-11-12 10:54 | P.PN ---
Subjective Date of Service: 11/12/23 Chief Complaint: Congestive heart failure on dialysis Subjective: Improving (Patient is improving disoriented confused about dialysis shortness of breath has improved) Review of Systems General: Weakness Respiratory: Shortness of Breath Physical Examination - Vital Signs Temperature: 97.0 F Blood Pressure: 138/57 Pulse: 55 Respirations: 16 Pulse Ox (%): 96 - Physical Exam General: Alert, Oriented x3 Respiratory: Clear to auscultation bilaterally Cardiovascular: No edema, Regular rate/rhythm Assessment And Plan - Current Problems (Diagnosis) (1) Congestive heart failure Current Visit: Yes Status: Acute Plan: Patient admitted with chronic diastolic heart failure she is feeling better although is intermittently confused not sure whether she is undergoing dialysis in fact she has had 2 so far DC antibiotics no evidence of any infection white count is now normal no fever Qualifiers: Heart failure chronicity: unspecified Physician Review: Patient Assessed, Agree with Above Assessment and Plan
--- NOTE | 2023-11-12 19:51 | P.PN ---
Date of Service: 11/12/23 Vital Signs Temp Pulse Resp BP Pulse Ox 97.0 F 55 16 138/57 L 96 11/12/23 18:31 11/12/23 18:31 11/12/23 18:31 11/12/23 18:31 11/12/23 18:31 Medications Acetaminophen (Acetaminophen 500 Mg Tab) 500 mg PO Q4HP PRN PRN Reason: Pain scale 2-4 (Mild) Last Admin: 11/08/23 09:05 Dose: 500 mg Albuterol Sulfate (Albuterol 2.5 Mg/3 Ml Neb Argelia) 2.5 mg NEB [id number] PRN PRN Reason: SHORTNESS OF BREATH Amiodarone HCl (Amiodarone Hcl 200 Mg Tab) 200 mg PO DAILY [facility] Last Admin: 11/12/23 08:32 Dose: 200 mg Aspirin (Aspirin Ec 81 Mg Tab) 81 mg PO DAILY [facility] Last Admin: 11/12/23 08:32 Dose: 81 mg Calcitriol (Calcitrol 0.25 Mcg Cap) 0.5 mcg PO DAILY [facility] Last Admin: 11/12/23 09:46 Dose: 0.5 mcg Clopidogrel Bisulfate (Clopidogrel 75 Mg Tablet) 75 mg PO DAILY [facility] Last Admin: 11/12/23 08:32 Dose: 75 mg Docusate Sodium (Docusate Na 100 Mg Cap) 100 mg PO BID [facility] Last Admin: 11/12/23 09:46 Dose: 100 mg Enteral Nutritional Formula (Glucerna Shake 237 Ml Can) 237 ml PO BID [facility] Last Admin: 11/12/23 08:32 Dose: Not Given Ergocalciferol (Drisdol (Vitamin D=Ergocalciferol) 95655 Unit Cap) 50,000 unit PO Q48H [facility] Stop: 11/15/23 09:01 Furosemide (Furosemide 40 Mg/4 Ml Vial) 40 mg IV BIDL [facility] Last Admin: 11/12/23 16:51 Dose: 40 mg Glucagon (Glucagon 1 Mg/Vial) 1 mg IM 1X PRN; Protocol PRN Reason: HYPOGLYCEMIA Heparin Sodium (Porcine) (Heparin 1,000 Unit/Ml Vial) 6,000 unit IV EVERY HD PRN PRN Reason: FOR DIALYSIS CATHETER CARE Last Admin: 11/12/23 13:46 Dose: 6,000 unit Heparin Sodium (Porcine) (Heparin 1,000 Unit/Ml Vial) 2,000 unit IV EVERY HD PRN PRN Reason: Prevent HD System Clotting. Last Admin: 11/12/23 10:42 Dose: 2,000 unit Dextrose (Dextrose 10% Water Iv Soln.) 125 mls @ 0 mls/hr IV PRN PRN; Protocol PRN Reason: HYPOGLYCEMIA Last Admin: 11/10/23 06:51 Dose: 125 mls Insulin Human Regular (Insulin Regular (Human) 100 Unit/Ml) 0 unit SQ ACHS [facility]; Protocol Last Admin: 11/12/23 16:30 Dose: Not Given Ipratropium [place] (Ipratropium Brom 0.5mg/2.5ml) 0.5 mg NEB BIDRESP [facility] Last Admin: 11/12/23 08:00 Dose: 0.5 mg Levothyroxine Sodium (Levothyroxine Sod 0.075 Mg Tab) 0.075 mg PO DAILYAC [facility] Last Admin: 11/12/23 06:08 Dose: 0.075 mg Mannitol (Mannitol 25% 12.5 Gm/50 Ml Vial) 25 gm IV EVERY HD PRN PRN Reason: DIALYSIS Last Admin: 11/12/23 10:45 Dose: 25 gm Midodrine (Midodrine Hcl 5 Mg Tablet) 5 mg PO TID [facility] Last Admin: 11/12/23 14:00 Dose: Not Given Ondansetron HCl (Ondansetron 4 Mg/2 Ml Vial) 4 mg IV Q6HP PRN PRN Reason: NAUSEA / VOMITING Last Admin: 11/10/23 15:52 Dose: 4 mg Tramadol/Acetaminophen (Tramadol 37.5mg/Apap 325mg Per Tab) 1 tab PO Q6H PRN PRN Reason: Pain scale 5-7 (Moderate) Vitamin B Complex/Vit C/Folic Acid (Multivitamins,Therapeut 1 Tab) 1 tab PO DAILY [facility] Last Admin: 11/12/23 09:46 Dose: 1 tab Assessment/ Plan: Nephrology No dyspnea No chest pain Feeling better Weakness and fatigue No acute events overnight Vitals, medications, blood work and imaging reviewed in the chart. NAD. NCAT. MMM. Neck supple. Normal respiratory effort. RRR. Abd ND. No C/C. LE Edema 1-2+. No rash. AAO. Normal speech. LEFT VENTRICULAR WALL MOTION: NORMAL DOPPLER/COLOR FLOW: SEE BELOW COMMENTS: 1. NORMAL LEFT VENTRICULAR EJECTION FRACTION 60-65% WITH NORMAL WALL MOTION 2. MODERATE DIASTOLIC DYSFUNCTION 3. SEVERELY DILATED RIGHT ATRIUM 4. SEVERE TRICUSPID REGURGITATION 5. MILD MITRAL REGURGITATION Stage III LEE ANN CKD V with Proteinuria -No NSAIDs -HD initiated -HBV negative -Dialysis placement pending -Seen and examined on HD today Hyponatremia -HD as ordered Hypotension -Continue Midodrine Diastolic CHF, A/C Severe TR -Continue Lasix -HD with UF DM II with Hyperglycemia and CKD -RISS Hypoalbuminemia -Consider Nepro Anemia in chronic illness Thrombocytopenia Hx Iron Deficiency -Monitor CBC CKD MBD -Continue Ergo and Calcitriol Hospitalist note reviewed
[2023-11-13 03:15] LABS: Absolute Lymphocytes (CBC) 0.3 K/uL (0.7-4.9); Hematocrit 26.7 % (36.0-45.0); MCV 82.2 fL (80-100); MPV 10.3 fL (7.6-11.3); Platelets 108 thou/uL (152-406); RBC Red Blood Cell Count 3.24 M/uL (3.86-4.86)
[2023-11-13 03:30] LABS: Bilirubin Total 0.4 mg/dL (0.2-1.0); Magnesium 1.8 mg/dL (1.6-2.4); Potassium 3.8 mEq/L (3.5-5.1); Protein, Total 5.9 g/dL (6.4-8.2)
[2023-11-13] MEDS: LEVOTHYROXINE SOD 0.075 MG TAB PO SCH (07:22)
[2023-11-13] MEDS: INSULIN REGULAR (HUMAN) 100 UNIT/ML SQ SCH ×4 (07:30→21:00)
[2023-11-13] MEDS: IPRATROPIUM BROM 0.5MG/2.5ML NEB SCH ×2 (08:12→19:52)
[2023-11-13] MEDS: AMIODARONE HCL 200 MG TAB PO SCH (08:57)
[2023-11-13] MEDS: DRISDOL (VITAMIN D=ERGOCALCIFEROL) 50000 UNIT CAP PO SCH (08:57)
[2023-11-13] MEDS: DOCUSATE NA 100 MG CAP PO SCH ×2 (08:57→21:19)
[2023-11-13] MEDS: CALCITROL 0.25 MCG CAP PO SCH (08:57)
[2023-11-13] MEDS: ASPIRIN EC 81 MG TAB PO SCH (08:57)
[2023-11-13] MEDS: GLUCERNA SHAKE 237 ML CAN PO SCH (08:58)
[2023-11-13] MEDS: CLOPIDOGREL 75 MG TABLET PO SCH (08:58)
[2023-11-13] MEDS: FUROSEMIDE 40 MG/4 ML VIAL IV SCH ×2 (08:58→16:50)
[2023-11-13] MEDS: MULTIVITAMINS,THERAPEUT 1 TAB PO SCH (08:58)
[2023-11-13] MEDS: MIDODRINE HCL 5 MG TABLET PO SCH ×3 (08:59→21:00)
--- NOTE | 2023-11-13 12:09 | P.PN ---
Subjective Date of Service: 11/13/23 Chief Complaint: acute on chronic kidney injury, pneumonia,bradycardia Subjective: No new changes, Improving, Doing well Alert oriented x 3 Sitting out of bed in the bedside chair Vital signs stable Denies any pain or discomfort <Art Hernandez - Last Filed: 11/13/23 12:19> Date of Service: 11/14/23 <Dilan Julian - Last Filed: 11/14/23 16:14> Review of Systems 10-point ROS is otherwise unremarkable <Art Hernandez - Last Filed: 11/13/23 12:19> Physical Examination - Vital Signs Temperature: 97.1 F Blood Pressure: 141/70 Pulse: 72 Respirations: 18 Pulse Ox (%): 91 - Physical Exam General: Alert, In no apparent distress, Oriented x3 HEENT: Atraumatic, Normocephalic Neck: Supple, 2+ carotid pulse no bruit Respiratory: Clear to auscultation bilaterally, Normal air movement Cardiovascular: Normal pulses, Regular rate/rhythm Capillary refill: <2 Seconds Gastrointestinal: Normal bowel sounds, Soft and benign, Non-distended Musculoskeletal: No clubbing, No contractures Integumentary: No rashes, Other (Multiple echo remote exports on both arms) Neurological: Normal speech, Normal tone, Normal affect <Art Hernandez - Last Filed: 11/13/23 12:19> Assessment And Plan - Current Problems (Diagnosis) (1) Congestive heart failure Current Visit: Yes Status: Chronic Qualifiers: Heart failure type: combined systolic and diastolic Heart failure chronicity: unspecified Qualified Code(s): I50.40 - Unspecified combined systolic (congestive) and diastolic (congestive) heart failure (2) Acute on chronic renal failure Current Visit: No Status: Acute Qualifiers: Acute renal failure type: unspecified Chronic kidney disease stage: stage 5, not on chronic dialysis Qualified Code(s): N17.9 - Acute kidney failure, unspecified; N18.5 - Chronic kidney disease, stage 5 (3) Anemia Current Visit: No Status: Chronic Qualifiers: Anemia type: iron deficiency Iron deficiency anemia type: unspecified iron deficiency Qualified Code(s): D50.9 - Iron deficiency anemia, unspecified (4) CKD stage 4 due to type 2 diabetes mellitus Current Visit: No Status: Acute (5) HTN (hypertension) Current Visit: Yes Status: Acute Qualifiers: Hypertension type: renovascular hypertension Qualified Code(s): I15.0 - Renovascular hypertension (6) Hypothyroid Current Visit: Yes Status: Acute Qualifiers: Hypothyroidism type: acquired Qualified Code(s): E03.9 - Hypothyroidism, unspecified (7) Frequent falls Current Visit: Yes Status: Acute (8) Generalized weakness Current Visit: Yes Status: Acute - Plan Acute hypoxic respiratory failure secondary to pneumonia vs secondary FVO from acute renal failure improving Pulmonary consulted, HD initiated 11/10 CBC no leukocytosis,7.8 IV Rocephin and doxycycline, nebs, O2 2 L keep sats greater than 90% troponin within normal limits, chest x-ray pleural effusion with bilateral pulmonary opacities, Pulmonary consult Eval for thoracentesis right-sided pleural effusion with diffuse bilateral changes likely secondary to fluid CHF, Diastolic, Elevated BNP improving Card consulted, ECHO ordered, midodine added for hypotension Fluid bolus, trend vital signs, hold blood pressure meds Transferred to ICU if patient remains hypotensive Trend BNP, BNP 2800, BNP 3211 troponin within normal limits, BNP 2670, 2625 midrodine added, BP improved 115 systolic Echocardiogram COMMENTS: 1. NORMAL LEFT VENTRICULAR EJECTION FRACTION 60-65% WITH NORMAL WALL MOTION 2. MODERATE DIASTOLIC DYSFUNCTION 3. SEVERELY DILATED RIGHT ATRIUM 4. SEVERE TRICUSPID REGURGITATION 5. MILD MITRAL REGURGITATION Frequent falls Generalized weakness generalized weakness with reported falls over the last several days. CT of the head and C-spine no acute traumatic process, pelvics x-ray no bony fracture PT consulted, Speech eval for Dietitian consult added for calorie count nurse reported patient coughing with po intake today Swallow study FINDINGS: No evidence of laryngeal penetration or aspiration. Vallecular residues, cleared with additional swallows and subsequent thin liquid swallows. IMPRESSION: No evidence of laryngeal penetration or jaime aspiration. Acute Renal Failure improving Acute on chronic kidney injury, CKD stage V improving Reports some mild lower extremity edema. BUN 64, creatinine 3.40, chest x-ray pleural effusion with bilateral pulmonary opacities, BUN 89 creatinine 4.24, BUN 66/3.51 est GFR 12 Nephrology consult on HD PRN HD Started 11/11 BUN 47/GFR 18/crea 2.59 11/12 tolerated HD, no complaints, Transaminitis AST 71/ALT 95/ALK PHOS 140 trend LFT microcytic anemia-stable HH 8.6/hct 26.7 trend H&H, transfuse hemoglobin less than 7 insulin-dependent diabetes- RSSI hypertension hypothyroidism Diet renal Full code DVT SCDs Discharge Plan: Home Plan to discharge in: 48 Hours - Code Status/Comfort Care Code Status Assessed: Yes (Full code) Code Status: Full Code Physician Review: Patient Assessed, Agree with Above Assessment and Plan Critical Care: No Time Spent Managing PTS Care (In Minutes): 35 (Minutes) <Art Hernandez - Last Filed: 11/13/23 12:19> - Plan Pt seen and examined. I agree with the note by the BACTERIOLOGIST PHARMACEUTICAL. Continue iv abx and current treatment plan. <Dilan Julian - Last Filed: 11/14/23 16:14>
--- NOTE | 2023-11-13 19:25 | P.PN ---
Date of Service: 11/13/23 Vital Signs Temp Pulse Resp BP Pulse Ox 97.2 F 64 18 151/68 H 94 11/13/23 16:00 11/13/23 16:00 11/13/23 16:00 11/13/23 16:00 11/13/23 16:00 Medications Acetaminophen (Acetaminophen 500 Mg Tab) 500 mg PO Q4HP PRN PRN Reason: Pain scale 2-4 (Mild) Last Admin: 11/08/23 09:05 Dose: 500 mg Albuterol Sulfate (Albuterol 2.5 Mg/3 Ml Neb Argelia) 2.5 mg NEB [id number] PRN PRN Reason: SHORTNESS OF BREATH Amiodarone HCl (Amiodarone Hcl 200 Mg Tab) 200 mg PO DAILY [facility] Last Admin: 11/13/23 08:57 Dose: 200 mg Aspirin (Aspirin Ec 81 Mg Tab) 81 mg PO DAILY [facility] Last Admin: 11/13/23 08:57 Dose: 81 mg Calcitriol (Calcitrol 0.25 Mcg Cap) 0.5 mcg PO DAILY [facility] Last Admin: 11/13/23 08:57 Dose: 0.5 mcg Clopidogrel Bisulfate (Clopidogrel 75 Mg Tablet) 75 mg PO DAILY [facility] Last Admin: 11/13/23 08:58 Dose: 75 mg Docusate Sodium (Docusate Na 100 Mg Cap) 100 mg PO BID [facility] Last Admin: 11/13/23 08:57 Dose: 100 mg Enteral Nutritional Formula (Nepro Shake 237 Ml Can) 237 ml PO BID [facility] Ergocalciferol (Drisdol (Vitamin D=Ergocalciferol) 69996 Unit Cap) 50,000 unit PO Q48H [facility] Stop: 11/15/23 09:01 Last Admin: 11/13/23 08:57 Dose: 50,000 unit Furosemide (Furosemide 40 Mg/4 Ml Vial) 40 mg IV BIDL [facility] Last Admin: 11/13/23 16:50 Dose: 40 mg Glucagon (Glucagon 1 Mg/Vial) 1 mg IM 1X PRN; Protocol PRN Reason: HYPOGLYCEMIA Heparin Sodium (Porcine) (Heparin 1,000 Unit/Ml Vial) 6,000 unit IV EVERY HD PRN PRN Reason: FOR DIALYSIS CATHETER CARE Last Admin: 11/12/23 13:46 Dose: 6,000 unit Heparin Sodium (Porcine) (Heparin 1,000 Unit/Ml Vial) 2,000 unit IV EVERY HD PRN PRN Reason: Prevent HD System Clotting. Last Admin: 11/12/23 10:42 Dose: 2,000 unit Dextrose (Dextrose 10% Water Iv Soln.) 125 mls @ 0 mls/hr IV PRN PRN; Protocol PRN Reason: HYPOGLYCEMIA Last Admin: 11/10/23 06:51 Dose: 125 mls Insulin Human Regular (Insulin Regular (Human) 100 Unit/Ml) 0 unit SQ ACHS [facility]; Protocol Last Admin: 11/13/23 16:51 Dose: 100 unit Ipratropium [place] (Ipratropium Brom 0.5mg/2.5ml) 0.5 mg NEB BIDRESP [facility] Last Admin: 11/13/23 08:12 Dose: 0.5 mg Levothyroxine Sodium (Levothyroxine Sod 0.075 Mg Tab) 0.075 mg PO DAILYAC [facility] Last Admin: 11/13/23 07:22 Dose: 0.075 mg Mannitol (Mannitol 25% 12.5 Gm/50 Ml Vial) 25 gm IV EVERY HD PRN PRN Reason: DIALYSIS Last Admin: 11/12/23 10:45 Dose: 25 gm Midodrine (Midodrine Hcl 5 Mg Tablet) 5 mg PO TID [facility] Last Admin: 11/13/23 16:50 Dose: 5 mg Ondansetron HCl (Ondansetron 4 Mg/2 Ml Vial) 4 mg IV Q6HP PRN PRN Reason: NAUSEA / VOMITING Last Admin: 11/10/23 15:52 Dose: 4 mg Tramadol/Acetaminophen (Tramadol 37.5mg/Apap 325mg Per Tab) 1 tab PO Q6H PRN PRN Reason: Pain scale 5-7 (Moderate) Vitamin B Complex/Vit C/Folic Acid (Multivitamins,Therapeut 1 Tab) 1 tab PO DAILY [facility] Last Admin: 11/13/23 08:58 Dose: 1 tab Lab Results (last 24 hrs) 11/07/23 15:06: Urine Color Cancelled, Urine Clarity Cancelled, Urine pH Cancelled, Ur Specific [place] Cancelled, Glucose (UA)(Auto) Cancelled, Urine Ketones Cancelled, Urine Blood Cancelled, Urine Nitrite Cancelled, Urine Bilirubin Cancelled, Urine Urobilinogen Cancelled, Ur Leukocyte Esterase Cancelled, Urine RBC Cancelled, Urine Red Cell Clumps Cancelled, Urine WBC Cancelled, Urine WBC Clumps Cancelled, Ur Squamous Epith Cells Cancelled, U Non- Squamous Epi Cells Cancelled, Ur Transition Epith Cell Cancelled, Ur Renal Epithelial Cell Cancelled, Calcium Carbonate Cryst Cancelled, Calcium Oxalate Crystal Cancelled, Leucine Crystals Cancelled, Cystine Crystals Cancelled, Uric Acid Crystals Cancelled, Triple Phos Crystals Cancelled, Tyrosine Crystals Cancelled, Unidentified Crystals Cancelled, Amorphous Crystals Cancelled, Urine Bacteria Cancelled, Hyaline Casts Cancelled, Granular Casts Cancelled, Waxy Casts Cancelled, RBC Casts Cancelled, WBC Casts Cancelled, Urine Mucus Ca ncelled, Urine Trichomonas Cancelled, Ur Yeast w Hyphae Cancelled, Urine Yeast (Budding) Cancelled, Urine Sperm Cancelled, Ur Oval Fat Bodies Cancelled, Urine Culture Reflexed Cancelled, Urine Total Protein Cancelled, Urine Ascorbic Acid Cancelled, Urine Fat Cancelled Assessment/ Plan: Nephrology No dyspnea No chest pain Feeling better. Worked with PT today Weakness and fatigue No acute events overnight Vitals, medications, blood work and imaging reviewed in the chart. NAD. NCAT. MMM. Neck supple. Normal respiratory effort. RRR. Abd ND. No C/C. LE Edema 1+. No rash. AAO. Normal speech. LEFT VENTRICULAR WALL MOTION: NORMAL DOPPLER/COLOR FLOW: SEE BELOW COMMENTS: 1. NORMAL LEFT VENTRICULAR EJECTION FRACTION 60-65% WITH NORMAL WALL MOTION 2. MODERATE DIASTOLIC DYSFUNCTION 3. SEVERELY DILATED RIGHT ATRIUM 4. SEVERE TRICUSPID REGURGITATION 5. MILD MITRAL REGURGITATION Stage III LEE ANN CKD V with Proteinuria -No NSAIDs -HD initiated -HBV negative -Dialysis placement pending Hyponatremia -HD as ordered Hypotension -Continue Midodrine Diastolic CHF, A/C Severe TR -Continue Lasix -HD with UF DM II with Hyperglycemia and CKD -RISS Hypoalbuminemia -Consider Nepro Anemia in chronic illness Thrombocytopenia Hx Iron Deficiency -Monitor CBC CKD MBD -Continue Ergo and Calcitriol Hospitalist note reviewed
[2023-11-13] MEDS: NEPRO SHAKE 237 ML CAN PO SCH (21:00)
[2023-11-14] MEDS: LEVOTHYROXINE SOD 0.075 MG TAB PO SCH (06:25)
[2023-11-14] MEDS: INSULIN REGULAR (HUMAN) 100 UNIT/ML SQ SCH ×4 (07:30→20:43)
[2023-11-14] MEDS: IPRATROPIUM BROM 0.5MG/2.5ML NEB SCH ×2 (08:09→19:32)
[2023-11-14 08:16] LABS: Absolute Lymphocytes (CBC) 2.8 K/uL (0.7-4.9); Hematocrit 27.1 % (36.0-45.0); Lymphocytes % 32.6 % (15.3-44.8); MCV 81.5 fL (80-100); MPV 9.5 fL (7.6-11.3); Platelets 108 thou/uL (152-406); RBC Red Blood Cell Count 3.32 M/uL (3.86-4.86)
[2023-11-14 08:43] LABS: Magnesium 1.8 mg/dL (1.6-2.4); Phosphorus 4.4 mg/dL (2.5-4.9); Potassium 3.9 mEq/L (3.5-5.1)
[2023-11-14 08:44] LABS: Magnesium 1.8 mg/dL (1.6-2.4); Phosphorus 4.4 mg/dL (2.5-4.9); Potassium 3.9 mEq/L (3.5-5.1)
[2023-11-14] MEDS ORDERED: EPOETIN ALFA 10,000 UNIT/ML VIAL SQ SCH (09:00)
[2023-11-14] MEDS: NEPRO SHAKE 237 ML CAN PO SCH ×2 (09:00→20:45)
[2023-11-14 09:03] LABS: White Blood Cell Scan OK (OK)
[2023-11-14 09:04] LABS: Blood Morphology Comment NOTED (NOT SEEN); Hypochromasia 1+; Platelet Estimate DECR
[2023-11-14] MEDS: MULTIVITAMINS,THERAPEUT 1 TAB PO SCH (09:20)
[2023-11-14] MEDS: CALCITROL 0.25 MCG CAP PO SCH (09:20)
[2023-11-14] MEDS: DOCUSATE NA 100 MG CAP PO SCH ×2 (09:21→20:41)
[2023-11-14] MEDS: AMIODARONE HCL 200 MG TAB PO SCH (09:21)
[2023-11-14] MEDS: FUROSEMIDE 40 MG/4 ML VIAL IV SCH ×2 (09:21→17:00)
[2023-11-14] MEDS: ASPIRIN EC 81 MG TAB PO SCH (09:21)
[2023-11-14] MEDS: MIDODRINE HCL 5 MG TABLET PO SCH ×3 (09:21→20:43)
[2023-11-14] MEDS: CLOPIDOGREL 75 MG TABLET PO SCH (09:21)
[2023-11-14] MEDS: MANNITOL 25% 12.5 GM/50 ML VIAL IV PRN (11:30)
--- NOTE | 2023-11-14 11:38 | P.PN ---
Subjective Date of Service: 11/14/23 Chief Complaint: acute on chronic kidney injury, pneumonia,bradycardia Subjective: No new changes, No C/O voiced, Improving, Doing well Alert oriented x 3 Sitting out of bed in the bedside chair Vital signs stable Denies any pain or discomfort Acute renal failure On HD prn <Art Hernandez - Last Filed: 11/14/23 11:32> Date of Service: 11/15/23 <IeshaTiaraakankshatoro Michoacano - Last Filed: 11/15/23 07:11> Review of Systems 10-point ROS is otherwise unremarkable <Art Hernandez - Last Filed: 11/14/23 11:32> Physical Examination - Vital Signs Temperature: 97.2 F Blood Pressure: 177/74 Pulse: 61 Respirations: 16 Pulse Ox (%): 94 - Physical Exam General: Alert, Oriented x3 HEENT: Atraumatic, Normocephalic Neck: Supple, 2+ carotid pulse no bruit Respiratory: Clear to auscultation bilaterally, Normal air movement Cardiovascular: No edema, Normal pulses Capillary refill: <2 Seconds Gastrointestinal: Normal bowel sounds, Soft and benign Musculoskeletal: No clubbing, No swelling, No contractures Integumentary: Other (BL UE ecchymoses) <Art Hernandez - Last Filed: 11/14/23 11:32> Assessment And Plan - Current Problems (Diagnosis) (1) Congestive heart failure Current Visit: Yes Status: Chronic Qualifiers: Heart failure type: combined systolic and diastolic Heart failure chronicity: unspecified Qualified Code(s): I50.40 - Unspecified combined systolic (congestive) and diastolic (congestive) heart failure (2) Acute on chronic renal failure Current Visit: No Status: Acute Qualifiers: Acute renal failure type: unspecified Chronic kidney disease stage: stage 5, not on chronic dialysis Qualified Code(s): N17.9 - Acute kidney failure, unspecified; N18.5 - Chronic kidney disease, stage 5 (3) Anemia Current Visit: No Status: Chronic Qualifiers: Anemia type: iron deficiency Iron deficiency anemia type: unspecified iron deficiency Qualified Code(s): D50.9 - Iron deficiency anemia, unspecified (4) CKD stage 4 due to type 2 diabetes mellitus Current Visit: No Status: Acute (5) HTN (hypertension) Current Visit: Yes Status: Acute Qualifiers: Hypertension type: renovascular hypertension Qualified Code(s): I15.0 - Renovascular hypertension (6) Hypothyroid Current Visit: Yes Status: Acute Qualifiers: Hypothyroidism type: acquired Qualified Code(s): E03.9 - Hypothyroidism, unspecified (7) Frequent falls Current Visit: Yes Status: Acute (8) Generalized weakness Current Visit: Yes Status: Acute - Plan Acute hypoxic respiratory failure secondary to pneumonia vs secondary FVO from acute renal failure improving -Improving, Breathing normally on nc 2lpm -Pulmonary consulted, -HD initiated 11/10 -CBC no leukocytosis- 8 -IV Rocephin and doxycycline, nebs, O2 2 L keep sats greater than 90% troponin within normal limits, -chest x-ray pleural effusion with bilateral pulmonary opacities, Pulmonary consult Eval for thoracentesis right-sided pleural effusion with diffuse bilateral changes likely secondary to fluid CHF, Diastolic, Elevated BNP improving Card consulted, ECHO 60-65%, on midodine added for hypotension Fluid bolus, trend vital signs, hold blood pressure meds Transferred to ICU if patient remains hypotensive Trend BNP, BNP 2800, BNP 3211 troponin within normal limits, BNP 2670, 2625 midrodine added, BP improved 115 systolic Echocardiogram COMMENTS: 1. NORMAL LEFT VENTRICULAR EJECTION FRACTION 60-65% WITH NORMAL WALL MOTION 2. MODERATE DIASTOLIC DYSFUNCTION 3. SEVERELY DILATED RIGHT ATRIUM 4. SEVERE TRICUSPID REGURGITATION 5. MILD MITRAL REGURGITATION Frequent falls Generalized weakness Generalized weakness with reported falls over the last several days. CT of the head and C-spine no acute traumatic process, pelvics x-ray no bony fracture PT consulted, Speech eval for Dietitian consult added for calorie count nurse reported patient coughing with po intake today Swallow study FINDINGS: No evidence of laryngeal penetration or aspiration. Vallecular residues, cleared with additional swallows and subsequent thin liquid swallows. IMPRESSION: No evidence of laryngeal penetration or jaime aspiration. Acute Renal Failure improving Acute on chronic kidney injury, CKD stage V improving Reports no lower extremity edema. BUN 64, creatinine 3.40, chest x-ray pleural effusion with bilateral pulmonary opacities, BUN 89 creatinine 4.24, BUN 66/3.51 est GFR 12 Nephrology consult on HD PRN HD Started 11/11 -BUN 60/GFR 15/crea 2.9 11/12 tolerated HD, no complaints Transaminitis AST 71/ALT 95/ALK PHOS 140 trend LFT microcytic anemia-stable HH 8.8/hct 27 trend H&H, transfuse hemoglobin less than 7 insulin-dependent diabetes- RSSI hypertension hypothyroidism Diet renal Full code DVT SCDs Physician Review: Patient Assessed, Agree with Above Assessment and Plan <Art Hernandez - Last Filed: 11/14/23 11:32> - Plan Pt seen and examined. I agree with the note by the FISH HATCHERY LABORER. Waiting for set up of oupt dialysis chair. <Dilan Julian - Last Filed: 11/15/23 07:11>
--- NOTE | 2023-11-14 14:40 | P.PN ---
Date of Service: 11/14/23 Vital Signs Temp Pulse Resp BP Pulse Ox 97.2 F 61 16 177/74 H 94 11/14/23 11:38 11/14/23 11:38 11/14/23 11:38 11/14/23 11:38 11/14/23 11:38 Medications Acetaminophen (Acetaminophen 500 Mg Tab) 500 mg PO Q4HP PRN PRN Reason: Pain scale 2-4 (Mild) Last Admin: 11/08/23 09:05 Dose: 500 mg Albuterol Sulfate (Albuterol 2.5 Mg/3 Ml Neb Argelia) 2.5 mg NEB [id number] PRN PRN Reason: SHORTNESS OF BREATH Amiodarone HCl (Amiodarone Hcl 200 Mg Tab) 200 mg PO DAILY [facility] Last Admin: 11/14/23 09:21 Dose: 200 mg Aspirin (Aspirin Ec 81 Mg Tab) 81 mg PO DAILY [facility] Last Admin: 11/14/23 09:21 Dose: 81 mg Calcitriol (Calcitrol 0.25 Mcg Cap) 0.5 mcg PO DAILY [facility] Last Admin: 11/14/23 09:20 Dose: 0.5 mcg Clopidogrel Bisulfate (Clopidogrel 75 Mg Tablet) 75 mg PO DAILY [facility] Last Admin: 11/14/23 09:21 Dose: 75 mg Docusate Sodium (Docusate Na 100 Mg Cap) 100 mg PO BID [facility] Last Admin: 11/14/23 09:21 Dose: 100 mg Enteral Nutritional Formula (Nepro Shake 237 Ml Can) 237 ml PO BID [facility] Last Admin: 11/14/23 09:00 Dose: 237 ml Ergocalciferol (Drisdol (Vitamin D=Ergocalciferol) 94419 Unit Cap) 50,000 unit PO Q48H [facility] Stop: 11/15/23 09:01 Last Admin: 11/13/23 08:57 Dose: 50,000 unit Furosemide (Furosemide 40 Mg/4 Ml Vial) 40 mg IV BIDL [facility] Last Admin: 11/14/23 09:21 Dose: 40 mg Glucagon (Glucagon 1 Mg/Vial) 1 mg IM 1X PRN; Protocol PRN Reason: HYPOGLYCEMIA Heparin Sodium (Porcine) (Heparin 1,000 Unit/Ml Vial) 6,000 unit IV EVERY HD [place] N PRN Reason: FOR DIALYSIS CATHETER CARE Last Admin: 11/12/23 13:46 Dose: 6,000 unit Heparin Sodium (Porcine) (Heparin 1,000 Unit/Ml Vial) 2,000 unit IV EVERY HD PRN PRN Reason: Prevent HD System Clotting. Last Admin: 11/14/23 11:27 Dose: 2,000 unit Dextrose (Dextrose 10% Water Iv Soln.) 125 mls @ 0 mls/hr IV PRN PRN; Protocol PRN Reason: HYPOGLYCEMIA Last Admin: 11/10/23 06:51 Dose: 125 mls Insulin Human Regular (Insulin Regular (Human) 100 Unit/Ml) 0 unit SQ ACHS [facility]; Protocol Last Admin: 11/14/23 11:30 Dose: Not Given Ipratropium [place] (Ipratropium Brom 0.5mg/2.5ml) 0.5 mg NEB BIDRESP [facility] Last Admin: 11/14/23 08:09 Dose: 0.5 mg Levothyroxine Sodium (Levothyroxine Sod 0.075 Mg Tab) 0.075 mg PO DAILYAC [facility] Last Admin: 11/14/23 06:25 Dose: 0.075 mg Mannitol (Mannitol 25% 12.5 Gm/50 Ml Vial) 25 gm IV EVERY HD PRN PRN Reason: DIALYSIS Last Admin: 11/14/23 11:30 Dose: 25 gm Midodrine (Midodrine Hcl 5 Mg Tablet) 5 mg PO TID [facility] Last Admin: 11/14/23 09:21 Dose: 5 mg Ondansetron HCl (Ondansetron 4 Mg/2 Ml Vial) 4 mg IV Q6HP PRN PRN Reason: NAUSEA / VOMITING Last Admin: 11/10/23 15:52 Dose: 4 mg Tramadol/Acetaminophen (Tramadol 37.5mg/Apap 325mg Per Tab) 1 tab PO Q6H PRN PRN Reason: Pain scale 5-7 (Moderate) Vitamin B Complex/Vit C/Folic Acid (Multivitamins,Therapeut 1 Tab) 1 tab PO DAILY [facility] Last Admin: 11/14/23 09:20 Dose: 1 tab Assessment/ Plan: Nephrology No dyspnea No chest pain Feeling better. Worked with PT today Weakness and fatigue improving No acute events overnight Vitals, medications, blood work and imaging reviewed in the chart. NAD. NCAT. MMM. Neck supple. Normal respiratory effort. RRR. Abd ND. No C/C. LE Edema 1+. No rash. AAO. Normal speech. LEFT VENTRICULAR WALL MOTION: NORMAL DOPPLER/COLOR FLOW: SEE BELOW COMMENTS: 1. NORMAL LEFT VENTRICULAR EJECTION FRACTION 60-65% WITH NORMAL WALL MOTION 2. MODERATE DIASTOLIC DYSFUNCTION 3. SEVERELY DILATED RIGHT ATRIUM 4. SEVERE TRICUSPID REGURGITATION 5. MILD MITRAL REGURGITATION Stage III LEE ANN CKD V with Proteinuria -No NSAIDs -HD initiated -HBV negative -Dialysis placement pending Hyponatremia -HD as ordered Hypotension -Continue Midodrine Diastolic CHF, A/C Severe TR -Continue Lasix -HD with UF DM II with Hyperglycemia and CKD -RISS Hypoalbuminemia -Consider Nepro Anemia in chronic illness Thrombocytopenia Hx Iron Deficiency -Monitor CBC CKD MBD -Continue Ergo and Calcitriol Hospitalist note reviewed
[2023-11-15 05:52] LABS: Absolute Lymphocytes (CBC) 0.3 K/uL (0.7-4.9); Hematocrit 29.2 % (36.0-45.0); Lymphocytes % 5.2 % (15.3-44.8); MCV 82.6 fL (80-100); MPV 9.6 fL (7.6-11.3); Platelets 109 thou/uL (152-406); RBC Red Blood Cell Count 3.53 M/uL (3.86-4.86)
[2023-11-15] MEDS: LEVOTHYROXINE SOD 0.075 MG TAB PO SCH (06:09)
[2023-11-15 06:10] LABS: Magnesium 1.8 mg/dL (1.6-2.4); Phosphorus 3.7 mg/dL (2.5-4.9); Potassium 4.1 mEq/L (3.5-5.1)
[2023-11-15] MEDS ORDERED: HYDRALAZINE HCL 20 MG/ML VIAL IV PRN (06:40)
[2023-11-15 07:12] LABS: Blood Morphology Comment NOTED (NOT SEEN); Hypochromasia 1+; Platelet Estimate DECR; Polychromasia 1+; White Blood Cell Scan OK (OK)
[2023-11-15] MEDS: INSULIN REGULAR (HUMAN) 100 UNIT/ML SQ SCH ×4 (07:30→21:00)
[2023-11-15] MEDS: IPRATROPIUM BROM 0.5MG/2.5ML NEB SCH ×3 (07:31→19:00)
[2023-11-15] MEDS: NEPRO SHAKE 237 ML CAN PO SCH ×2 (09:00→20:36)
[2023-11-15] MEDS: CLOPIDOGREL 75 MG TABLET PO SCH (09:04)
[2023-11-15] MEDS: CALCITROL 0.25 MCG CAP PO SCH (09:04)
[2023-11-15] MEDS: ASPIRIN EC 81 MG TAB PO SCH (09:04)
[2023-11-15] MEDS: DRISDOL (VITAMIN D=ERGOCALCIFEROL) 50000 UNIT CAP PO SCH (09:04)
[2023-11-15] MEDS: FUROSEMIDE 40 MG/4 ML VIAL IV SCH (09:04)
[2023-11-15] MEDS: DOCUSATE NA 100 MG CAP PO SCH ×2 (09:04→20:35)
[2023-11-15] MEDS: MULTIVITAMINS,THERAPEUT 1 TAB PO SCH (09:04)
[2023-11-15] MEDS: AMIODARONE HCL 200 MG TAB PO SCH (09:04)
[2023-11-15] MEDS: HYDRALAZINE HCL 10 MG TABLET PO SCH ×3 (09:04→20:35)
--- NOTE | 2023-11-15 09:52 | P.PN ---
Subjective Date of Service: 11/15/23 Chief Complaint: acute on chronic kidney injury, pneumonia,bradycardia Subjective: No new changes, Improving, Doing well Alert oriented x 3 Resting Vital signs stable Denies any pain or discomfort Acute renal failure On HD prn <Art Hernandez - Last Filed: 11/15/23 09:48> Date of Service: 11/17/23 <Dilan Julian - Last Filed: 11/17/23 13:38> Review of Systems 10-point ROS is otherwise unremarkable <Art Hernandez - Last Filed: 11/15/23 09:48> Physical Examination - Vital Signs Temperature: 97.8 F Blood Pressure: 173/81 Pulse: 60 Respirations: 18 Pulse Ox (%): 95 - Physical Exam General: Alert, Oriented x3 HEENT: Atraumatic, Normocephalic Neck: Supple, 2+ carotid pulse no bruit Respiratory: Clear to auscultation bilaterally, Normal air movement Cardiovascular: No edema, Normal pulses, Normal S1 S2, Other (Right chest HD catheter) Capillary refill: <2 Seconds Gastrointestinal: Normal bowel sounds, Soft and benign Musculoskeletal: No clubbing, No swelling Integumentary: No rashes, No breakdown Neurological: Normal speech, Normal tone, Normal affect <Art Hernandez - Last Filed: 11/15/23 09:48> Assessment And Plan - Current Problems (Diagnosis) (1) Congestive heart failure Current Visit: Yes Status: Chronic Qualifiers: Heart failure type: combined systolic and diastolic Heart failure chronicity: unspecified Qualified Code(s): I50.40 - Unspecified combined systolic (congestive) and diastolic (congestive) heart failure (2) Acute on chronic renal failure Current Visit: No Status: Acute Qualifiers: Acute renal failure type: unspecified Chronic kidney disease stage: stage 5, not on chronic dialysis Qualified Code(s): N17.9 - Acute kidney failure, unspecified; N18.5 - Chronic kidney disease, stage 5 (3) Anemia Current Visit: No Status: Chronic Qualifiers: Anemia type: iron deficiency Iron deficiency anemia type: unspecified iron deficiency Qualified Code(s): D50.9 - Iron deficiency anemia, unspecified (4) CKD stage 4 due to type 2 diabetes mellitus Current Visit: No Status: Acute (5) HTN (hypertension) Current Visit: Yes Status: Acute Qualifiers: Hypertension type: renovascular hypertension Qualified Code(s): I15.0 - Renovascular hypertension (6) Hypothyroid Current Visit: Yes Status: Acute Qualifiers: Hypothyroidism type: acquired Qualified Code(s): E03.9 - Hypothyroidism, unspecified (7) Frequent falls Current Visit: Yes Status: Acute (8) Generalized weakness Current Visit: Yes Status: Acute - Plan Acute hypoxic respiratory failure secondary to pneumonia vs secondary FVO from acute renal failure improving -Improving, Breathing normally on nc 2lpm -Pulmonary consulted, -HD initiated 11/10 -CBC no leukocytosis -IV Rocephin and doxycycline, nebs, O2 2 L keep sats greater than 90% troponin within normal limits, -chest x-ray pleural effusion with bilateral pulmonary opacities, right-sided pleural effusion with diffuse bilateral changes likely secondary to fluid CHF, Diastolic, Elevated BNP improving Card consulted, ECHO 60-65%, on midodine added for hypotension Fluid bolus, trend vital signs, hold blood pressure meds Transferred to ICU if patient remains hypotensive Trend BNP, BNP 2800, BNP 3211 troponin within normal limits, BNP 2670, 2625 midrodine added, BP improved 115 systolic Echocardiogram COMMENTS: 1. NORMAL LEFT VENTRICULAR EJECTION FRACTION 60-65% WITH NORMAL WALL MOTION 2. MODERATE DIASTOLIC DYSFUNCTION 3. SEVERELY DILATED RIGHT ATRIUM 4. SEVERE TRICUSPID REGURGITATION 5. MILD MITRAL REGURGITATION Frequent falls Generalized weakness Generalized weakness with reported falls over the last several days. CT of the head and C-spine no acute traumatic process, pelvics x-ray no bony fracture PT consulted, Speech eval for Dietitian consult added for calorie count nurse reported patient coughing with po intake today Swallow study FINDINGS: No evidence of laryngeal penetration or aspiration. Vallecular residues, cleared with additional swallows and subsequent thin liquid swallows. IMPRESSION: No evidence of laryngeal penetration or jaime aspiration. Acute Renal Failure improving Acute on chronic kidney injury, CKD stage V improving Reports no lower extremity edema. Improving renal profile in HD. BUN 39, creatinine 2.17,est GFR 22 chest x-ray pleural effusion with bilateral pulmonary opacities, Nephrology consult on HD PRN HD Started 11/11 -BUN 60/GFR 15/crea 2.9 11/12 tolerated HD, no complaints Transaminitis AST 71/ALT 95/ALK PHOS 140 trend LFT microcytic anemia-stable HH 8.8/hct 27 trend H&H, transfuse hemoglobin less than 7 insulin-dependent diabetes- RSSI hypertension hypothyroidism Diet renal Full code DVT SCDs Physician Review: Patient Assessed, Agree with Above Assessment and Plan <Art Hernandez - Last Filed: 11/15/23 09:48> - Plan Pt seen and examined. I agree with the note by the OPERATIONS MANAGEMENT TRAINEE. Continue current treatment <Dilan Julian - Last Filed: 11/17/23 13:38>
--- NOTE | 2023-11-15 12:01 | P.PN ---
Date of Service: 11/15/23 Vital Signs Temp Pulse Resp BP Pulse Ox 97.8 F 60 18 173/81 H 95 11/15/23 09:52 11/15/23 09:52 11/15/23 09:52 11/15/23 09:52 11/15/23 09:52 Medications Acetaminophen (Acetaminophen 500 Mg Tab) 500 mg PO Q4HP PRN PRN Reason: Pain scale 2-4 (Mild) Last Admin: 11/08/23 09:05 Dose: 500 mg Albuterol Sulfate (Albuterol 2.5 Mg/3 Ml Neb Argelia) 2.5 mg NEB [id number] PRN PRN Reason: SHORTNESS OF BREATH Amiodarone HCl (Amiodarone Hcl 200 Mg Tab) 200 mg PO DAILY [facility] Last Admin: 11/15/23 09:04 Dose: 200 mg Aspirin (Aspirin Ec 81 Mg Tab) 81 mg PO DAILY [facility] Last Admin: 11/15/23 09:04 Dose: 81 mg Calcitriol (Calcitrol 0.25 Mcg Cap) 0.5 mcg PO DAILY [facility] Last Admin: 11/15/23 09:04 Dose: 0.5 mcg Clopidogrel Bisulfate (Clopidogrel 75 Mg Tablet) 75 mg PO DAILY [facility] Last Admin: 11/15/23 09:04 Dose: 75 mg Docusate Sodium (Docusate Na 100 Mg Cap) 100 mg PO BID [facility] Last Admin: 11/15/23 09:04 Dose: 100 mg Enteral Nutritional Formula (Nepro Shake 237 Ml Can) 237 ml PO BID [facility] Last Admin: 11/15/23 09:00 Dose: 237 ml Furosemide (Furosemide 40 Mg/4 Ml Vial) 40 mg IV BIDL [facility] Last Admin: 11/15/23 09:04 Dose: 40 mg Glucagon (Glucagon 1 Mg/Vial) 1 mg IM 1X PRN; Protocol PRN Reason: HYPOGLYCEMIA Heparin Sodium (Porcine) (Heparin 1,000 Unit/Ml Vial) 6,000 unit IV EVERY HD PRN PRN Reason: FOR DIALYSIS CATHETER CARE Last Admin: 11/14/23 14:32 Dose: 6,000 unit Heparin Sodium (Porcine) (Heparin 1,000 Unit/Ml Vial) 2,000 unit IV EVERY HD PRN PRN Reason: Prevent HD System Clotting. Last Admin: 11/14/23 11:27 Dose: 2,000 unit Hydralazine HCl (Hydralazine Hcl 20 Mg/Ml Vial) 10 mg IV Q4HP PRN PRN Reason: Goal to achieve SBP in comment Hydralazine HCl (Hydralazine Hcl 10 Mg Tablet) 20 mg PO TID [facility] Last Admin: 11/15/23 09:04 Dose: 20 mg Dextrose (Dextrose 10% Water Iv Soln.) 125 mls @ 0 mls/hr IV PRN PRN; Protocol PRN Reason: HYPOGLYCEMIA Last Admin: 11/10/23 06:51 Dose: 125 mls Insulin Human Regular (Insulin Regular (Human) 100 Unit/Ml) 0 unit SQ ACHS [facility]; Protocol Last Admin: 11/15/23 07:30 Dose: Not Given Ipratropium [place] (Ipratropium Brom 0.5mg/2.5ml) 0.5 mg NEB BIDRESP [facility] Last Admin: 11/15/23 07:31 Dose: 0.5 mg Levothyroxine Sodium (Levothyroxine Sod 0.075 Mg Tab) 0.075 mg PO DAILYAC [facility] Last Admin: 11/15/23 06:09 Dose: 0.075 mg Mannitol (Mannitol 25% 12.5 Gm/50 Ml Vial) 25 gm IV EVERY HD PRN PRN Reason: DIALYSIS Last Admin: 11/14/23 11:30 Dose: 25 gm Ondansetron HCl (Ondansetron 4 Mg/2 Ml Vial) 4 mg IV Q6HP PRN PRN Reason: NAUSEA / VOMITING Last Admin: 11/10/23 15:52 Dose: 4 mg Tramadol/Acetaminophen (Tramadol 37.5mg/Apap 325mg Per Tab) 1 tab PO Q6H PRN PRN Reason: Pain scale 5-7 (Moderate) Vitamin B Complex/Vit C/Folic Acid (Multivitamins,Therapeut 1 Tab) 1 tab PO DAILY [facility] Last Admin: 11/15/23 09:04 Dose: 1 tab Assessment/ Plan: Nephrology No dyspnea No chest pain Feeling better. Worked with PT today No acute events overnight Vitals, medications, blood work and imaging reviewed in the chart. NAD. NCAT. MMM. Neck supple. Normal respiratory effort. RRR. Abd ND. No C/C. LE Edema trace. No rash. AAO. Normal speech. LEFT VENTRICULAR WALL MOTION: NORMAL DOPPLER/COLOR FLOW: SEE BELOW COMMENTS: 1. NORMAL LEFT VENTRICULAR EJECTION FRACTION 60-65% WITH NORMAL WALL MOTION 2. MODERATE DIASTOLIC DYSFUNCTION 3. SEVERELY DILATED RIGHT ATRIUM 4. SEVERE TRICUSPID REGURGITATION 5. MILD MITRAL REGURGITATION Stage III LEE ANN CKD V with Proteinuria -No NSAIDs -HD initiated -HBV negative -Dialysis placement pending Hyponatremia -HD as ordered HTN with CKD/ CHF -Start Losartan BID -Continue Hydralazine Diastolic CHF, A/C Severe TR -Change Lasix PO -HD with UF DM II with Hyperglycemia and CKD -RISS Hypoalbuminemia -Continue Nepro Anemia in chronic illness Thrombocytopenia Hx Iron Deficiency -Monitor CBC CKD MBD -Continue Ergo and Calcitriol Hospitalist note reviewed
[2023-11-15] MEDS ORDERED: LOSARTAN POTASSIUM 50 MG TABLET PO SCH (12:15)
[2023-11-15] MEDS ORDERED: NEPRO SHAKE 237 ML CAN PO SCH (14:00)
[2023-11-15] MEDS: FUROSEMIDE 40 MG TABLET PO SCH (17:14)
[2023-11-15] MEDS: LOSARTAN POTASSIUM 50 MG TABLET PO SCH (20:35)
[2023-11-16 03:38] LABS: Absolute Lymphocytes (CBC) 3.3 K/uL (0.7-4.9); Hematocrit 28.3 % (36.0-45.0); Lymphocytes % 36.2 % (15.3-44.8); MCV 82.2 fL (80-100); MPV 9.3 fL (7.6-11.3); Platelets 115 thou/uL (152-406); RBC Red Blood Cell Count 3.45 M/uL (3.86-4.86)
[2023-11-16 04:02] LABS: Magnesium 1.8 mg/dL (1.6-2.4); Phosphorus 4.1 mg/dL (2.5-4.9)
[2023-11-16] MEDS: LEVOTHYROXINE SOD 0.075 MG TAB PO SCH (05:37)
[2023-11-16] MEDS: INSULIN REGULAR (HUMAN) 100 UNIT/ML SQ SCH ×4 (07:30→20:33)
[2023-11-16] MEDS: IPRATROPIUM BROM 0.5MG/2.5ML NEB SCH ×2 (07:48→19:38)
[2023-11-16] MEDS: NEPRO SHAKE 237 ML CAN PO SCH ×2 (09:00→20:33)
[2023-11-16] MEDS: HYDRALAZINE HCL 10 MG TABLET PO SCH ×3 (10:04→20:32)
[2023-11-16] MEDS: ASPIRIN EC 81 MG TAB PO SCH (10:04)
[2023-11-16] MEDS: LOSARTAN POTASSIUM 50 MG TABLET PO SCH ×2 (10:05→20:32)
[2023-11-16] MEDS: MULTIVITAMINS,THERAPEUT 1 TAB PO SCH (10:05)
[2023-11-16] MEDS: FUROSEMIDE 40 MG TABLET PO SCH ×2 (10:05→16:18)
[2023-11-16] MEDS: DOCUSATE NA 100 MG CAP PO SCH ×2 (10:05→20:33)
[2023-11-16] MEDS: CALCITROL 0.25 MCG CAP PO SCH (10:06)
[2023-11-16] MEDS: CLOPIDOGREL 75 MG TABLET PO SCH (10:06)
[2023-11-16] MEDS: AMIODARONE HCL 200 MG TAB PO SCH (10:53)
--- NOTE | 2023-11-16 13:34 | P.PN ---
(S) Tolerated HD session(s), s/p Rt IJ TDC placement, seen sitting up in chair, reports some cough (dry) still present, dyspnea better. Strength slowly improving (O) Vitals reviewed in the EMR General: Alert, Cooperative HEENT: Atraumatic, Normocephalic, Other (Not currently on O2) Neck: Rt IJ TDC Respiratory: Normal air movement, Other (Reduced BS at bases) Cardiovascular: Regular rate/rhythm, Systolic murmur Gastrointestinal: Soft and benign, Non-distended, No tenderness, No guarding Musculoskeletal: No tenderness, No warmth, Swelling, distal edema Integumentary: No rashes Neurological: Normal speech, Normal tone, Normal affect Laboratory Data (last 24 hrs) Reviewed in the EMR Conclusions/Impression: A/P) 1. Stage III ARF (in the setting of hypotension, other) on her underlying CKD IV vs further loss of residual function and progression to Stage V Initiated HD, metab profile improved, repeat HD today, awaiting placement in SNF and OP HD 2. Dyspnea with b/l pulm infiltrates reflecting possible cardiogenic pulm edema vs pneumonitis/PNA. Clinically stable, cautious UF on dialysis as tolerated 3. Chronic diastolic CHF, pulm HTN, (non rheumatic). TTE on this admission was more notable for RA dilation, TR which could have been contributing to renal vein congestion. 4. Chronic hypertensive CKD. Labile HTN with hypotension briefly on admission. Monitor closely, with her may have some pre load dependence so will monitor closely Tawanda Brooks MD, SULEMAN
[2023-11-16] MEDS: POLYETHYL GLY 3350 17 GM/DOSE PO PRN (16:18)
[2023-11-16] MEDS ORDERED: LACTULOSE 20 GM/30 ML UCUP PO ONE (17:00)
[2023-11-16] MEDS ORDERED: FLEET ENEMA ADULT PR ONE (20:28)
[2023-11-17 03:50] LABS: Absolute Lymphocytes (CBC) 3.3 K/uL (0.7-4.9); Hematocrit 27.6 % (36.0-45.0); MCV 82.2 fL (80-100); MPV 9.3 fL (7.6-11.3); Platelets 130 thou/uL (152-406); RBC Red Blood Cell Count 3.35 M/uL (3.86-4.86)
[2023-11-17] MEDS: LEVOTHYROXINE SOD 0.075 MG TAB PO SCH (06:00)
[2023-11-17] MEDS: IPRATROPIUM BROM 0.5MG/2.5ML NEB SCH ×2 (07:30→19:28)
[2023-11-17] MEDS: INSULIN REGULAR (HUMAN) 100 UNIT/ML SQ SCH ×4 (08:54→20:57)
[2023-11-17] MEDS: DOCUSATE NA 100 MG CAP PO SCH ×2 (08:54→21:01)
[2023-11-17] MEDS: ASPIRIN EC 81 MG TAB PO SCH (08:55)
[2023-11-17] MEDS: LOSARTAN POTASSIUM 50 MG TABLET PO SCH ×2 (08:55→20:55)
[2023-11-17] MEDS: FUROSEMIDE 40 MG TABLET PO SCH ×2 (08:55→16:52)
[2023-11-17] MEDS: HYDRALAZINE HCL 10 MG TABLET PO SCH ×3 (08:55→20:54)
[2023-11-17] MEDS: CLOPIDOGREL 75 MG TABLET PO SCH (08:55)
[2023-11-17] MEDS: AMIODARONE HCL 200 MG TAB PO SCH (08:55)
[2023-11-17] MEDS: NEPRO SHAKE 237 ML CAN PO SCH ×2 (08:56→21:03)
[2023-11-17] MEDS: CALCITROL 0.25 MCG CAP PO SCH (08:56)
[2023-11-17] MEDS: MULTIVITAMINS,THERAPEUT 1 TAB PO SCH (08:56)
[2023-11-17] MEDS ORDERED: DRISDOL (VITAMIN D=ERGOCALCIFEROL) 50000 UNIT CAP PO SCH (09:00)
[2023-11-17] MEDS ORDERED: MAGNESIUM SULFATE 1 gm IVPB 1 GM/100 ML BAG IV ONE (09:00)
--- NOTE | 2023-11-17 11:47 | P.PN ---
Subjective Date of Service: 11/17/23 Chief Complaint: acute on chronic kidney injury, pneumonia,bradycardia Subjective: No new changes, Improving, Doing well Alert oriented x 3 Resting Vital signs stable Denies any pain or discomfort Acute renal failure On HD prn <Art Hernandez - Last Filed: 11/17/23 11:44> Date of Service: 11/18/23 <Dilan Julian - Last Filed: 11/18/23 12:00> Review of Systems 10-point ROS is otherwise unremarkable <Art Hernandez - Last Filed: 11/17/23 11:44> Physical Examination - Vital Signs Temperature: 97.9 F Blood Pressure: 161/74 Pulse: 76 Respirations: 16 Pulse Ox (%): 99 - Physical Exam General: Alert, Oriented x3 HEENT: Atraumatic, Normocephalic Neck: Supple, 2+ carotid pulse no bruit Respiratory: Clear to auscultation bilaterally, Normal air movement Capillary refill: <2 Seconds Gastrointestinal: Normal bowel sounds, Soft and benign Musculoskeletal: No clubbing, No swelling Integumentary: No rashes, No breakdown Neurological: Normal speech, Normal tone <Art Hernandez - Last Filed: 11/17/23 11:44> Assessment And Plan - Current Problems (Diagnosis) (1) Congestive heart failure Current Visit: Yes Status: Chronic Qualifiers: Heart failure type: combined systolic and diastolic Heart failure chronicity: unspecified Qualified Code(s): I50.40 - Unspecified combined systolic (congestive) and diastolic (congestive) heart failure (2) Acute on chronic renal failure Current Visit: No Status: Acute Qualifiers: Acute renal failure type: unspecified Chronic kidney disease stage: stage 5, not on chronic dialysis Qualified Code(s): N17.9 - Acute kidney failure, unspecified; N18.5 - Chronic kidney disease, stage 5 (3) Anemia Current Visit: No Status: Chronic Qualifiers: Anemia type: iron deficiency Iron deficiency anemia type: unspecified iron deficiency Qualified Code(s): D50.9 - Iron deficiency anemia, unspecified (4) CKD stage 4 due to type 2 diabetes mellitus Current Visit: No Status: Acute (5) HTN (hypertension) Current Visit: Yes Status: Acute Qualifiers: Hypertension type: renovascular hypertension Qualified Code(s): I15.0 - Renovascular hypertension (6) Hypothyroid Current Visit: Yes Status: Acute Qualifiers: Hypothyroidism type: acquired Qualified Code(s): E03.9 - Hypothyroidism, unspecified (7) Frequent falls Current Visit: Yes Status: Acute (8) Generalized weakness Current Visit: Yes Status: Acute - Plan Acute hypoxic respiratory failure secondary to pneumonia vs secondary FVO from acute renal failure improving -Improving, Breathing normally on nc 2lpm -Pulmonary consulted, -HD initiated 11/10/23 -CBC no leukocytosis -IV Rocephin and doxycycline, nebs, O2 2 L keep sats greater than 90% troponin within normal limits, -chest x-ray pleural effusion with bilateral pulmonary opacities, right-sided pleural effusion with diffuse bilateral changes likely secondary to fluid CHF, Diastolic, Elevated BNP improving Card consulted, ECHO 60-65%, on midodine added for hypotension Fluid bolus, trend vital signs, hold blood pressure meds Transferred to ICU if patient remains hypotensive Trend BNP, BNP 2800, BNP 3211 troponin within normal limits, BNP 2670, 2625 midrodine added, BP improved 115 systolic Echocardiogram COMMENTS: 1. NORMAL LEFT VENTRICULAR EJECTION FRACTION 60-65% WITH NORMAL WALL MOTION 2. MODERATE DIASTOLIC DYSFUNCTION 3. SEVERELY DILATED RIGHT ATRIUM 4. SEVERE TRICUSPID REGURGITATION 5. MILD MITRAL REGURGITATION Frequent falls Generalized weakness Generalized weakness with reported falls over the last several days. CT of the head and C-spine no acute traumatic process, pelvics x-ray no bony fracture PT consulted, Speech eval for Dietitian consult added for calorie count nurse reported patient coughing with po intake today Swallow study FINDINGS: No evidence of laryngeal penetration or aspiration. Vallecular residues, cleared with additional swallows and subsequent thin liquid swallows. IMPRESSION: No evidence of laryngeal penetration or jaime aspiration. Acute Renal Failure improving Acute on chronic kidney injury, CKD stage V improving Reports no lower extremity edema. Improving renal profile in HD. BUN 39, creatinine 2.17,est GFR 22 chest x-ray pleural effusion with bilateral pulmonary opacities, Nephrology consult on HD PRN HD Started 11/11 -BUN 60/GFR 15/crea 2.9 11/12 tolerated HD, no complaints Transaminitis AST 71/ALT 95/ALK PHOS 140 trend LFT microcytic anemia-stable HH 8.8/hct 27 trend H&H, transfuse hemoglobin less than 7 insulin-dependent diabetes- RSSI hypertension hypothyroidism Discharge [facility] on sunday11/19/23 Diet renal Full code DVT SCDs Discharge Plan: Home Plan to discharge in: 48 Hours - Code Status/Comfort Care Code Status Assessed: Yes (Full code) Code Status: Full Code Physician Review: Patient Assessed, Agree with Above Assessment and Plan Critical Care: No Time Spent Managing PTS Care (In Minutes): 35 (Minutes) <Art Hernandez - Last Filed: 11/17/23 11:44> - Plan Pt seen and examined. I agree with the note by the LEGAL STENOGRAPHER. Continue abx <Dilan Julian - Last Filed: 11/18/23 12:00>
--- NOTE | 2023-11-17 21:20 | P.PN ---
Date of Service: 11/17/23 Vital Signs Temp Pulse Resp BP Pulse Ox 97.8 F 76 16 99/53 L 96 11/17/23 16:00 11/17/23 16:00 11/17/23 16:00 11/17/23 16:00 11/17/23 16:00 Medications Acetaminophen (Acetaminophen 500 Mg Tab) 500 mg PO Q4HP PRN PRN Reason: Pain scale 2-4 (Mild) Last Admin: 11/08/23 09:05 Dose: 500 mg Albuterol Sulfate (Albuterol 2.5 Mg/3 Ml Neb Argelia) 2.5 mg NEB [id number] PRN PRN Reason: SHORTNESS OF BREATH Amiodarone HCl (Amiodarone Hcl 200 Mg Tab) 200 mg PO DAILY [facility] Last Admin: 11/17/23 08:55 Dose: 200 mg Aspirin (Aspirin Ec 81 Mg Tab) 81 mg PO DAILY [facility] Last Admin: 11/17/23 08:55 Dose: 81 mg Calcitriol (Calcitrol 0.25 Mcg Cap) 0.5 mcg PO DAILY [facility] Last Admin: 11/17/23 08:56 Dose: 0.5 mcg Clopidogrel Bisulfate (Clopidogrel 75 Mg Tablet) 75 mg PO DAILY [facility] Last Admin: 11/17/23 08:55 Dose: 75 mg Docusate Sodium (Docusate Na 100 Mg Cap) 100 mg PO BID [facility] Last Admin: 11/17/23 21:01 Dose: 100 mg Enteral Nutritional Formula (Nepro Shake 237 Ml Can) 237 ml PO BID [facility] Last Admin: 11/17/23 21:03 Dose: 237 ml Ergocalciferol (Drisdol (Vitamin D=Ergocalciferol) 30124 Unit Cap) 50,000 unit PO Q7D@0900 [facility] Last Admin: 11/17/23 08:55 Dose: 50,000 unit Furosemide (Furosemide 40 Mg Tablet) 40 mg PO BIDL [facility] Last Admin: 11/17/23 16:52 Dose: 40 mg Glucagon (Glucagon 1 Mg/Vial) 1 mg IM 1X PRN; Protocol PRN Reason: HYPOGLYCEMIA Heparin Sodium (Porcine) (Heparin 1,000 Unit/Ml Vial) 6,000 unit IV EVERY HD PRN PRN Reason: FOR DIALYSIS CATHETER CARE Last Admin: 11/16/23 14:46 Dose: 6,000 unit Heparin Sodium (Porcine) (Heparin 1,000 Unit/Ml Vial) 2,000 unit IV EVERY HD PRN PRN Reason: Prevent HD System Clotting. Last Admin: 11/16/23 11:42 Dose: 2,000 unit Hydralazine HCl (Hydralazine Hcl 20 Mg/Ml Vial) 10 mg IV Q4HP PRN PRN Reason: Goal to achieve SBP in comment Hydralazine HCl (Hydralazine Hcl 10 Mg Tablet) 20 mg PO TID [facility] Last Admin: 11/17/23 20:54 Dose: Not Given Dextrose (Dextrose 10% Water Iv Soln.) 125 mls @ 0 mls/hr IV PRN PRN; Protocol PRN Reason: HYPOGLYCEMIA Last Admin: 11/10/23 06:51 Dose: 125 mls Insulin Human Regular (Insulin Regular (Human) 100 Unit/Ml) 0 unit SQ ACHS [facility]; Protocol Last Admin: 11/17/23 20:57 Dose: Not Given Ipratropium [place] (Ipratropium Brom 0.5mg/2.5ml) 0.5 mg NEB BIDRESP [facility] Last Admin: 11/17/23 19:28 Dose: 0.5 mg Levothyroxine Sodium (Levothyroxine Sod 0.075 Mg Tab) 0.075 mg PO DAILYAC [facility] Last Admin: 11/17/23 06:00 Dose: 0.075 mg Losartan Potassium (Losartan Potassium 50 Mg Tablet) 25 mg PO BID [facility] Last Admin: 11/17/23 20:55 Dose: Not Given Mannitol (Mannitol 25% 12.5 Gm/50 Ml Vial) 25 gm IV EVERY HD PRN PRN Reason: DIALYSIS Last Admin: 11/14/23 11:30 Dose: 25 gm Ondansetron HCl (Ondansetron 4 Mg/2 Ml Vial) 4 mg IV Q6HP PRN PRN Reason: NAUSEA / VOMITING Last Admin: 11/10/23 15:52 Dose: 4 mg Polyethylene Glycol (Polyethyl Gly 3350 17 Gm/Dose) 17 gm PO DAILY PRN PRN Reason: CONSTIPATION Last Admin: 11/16/23 16:18 Dose: 17 gm Vitamin B Complex/Vit C/Folic Acid (Multivitamins,Therapeut 1 Tab) 1 tab PO STEFAN LY [facility] Last Admin: 11/17/23 08:56 Dose: 1 tab Assessment/ Plan: Nephrology No dyspnea No chest pain Feeling better. Worked with PT today No acute events overnight Vitals, medications, blood work and imaging reviewed in the chart. NAD. NCAT. MMM. Neck supple. Normal respiratory effort. RRR. Abd ND. No C/C. LE Edema trace. No rash. AAO. Normal speech. LEFT VENTRICULAR WALL MOTION: NORMAL DOPPLER/COLOR FLOW: SEE BELOW COMMENTS: 1. NORMAL LEFT VENTRICULAR EJECTION FRACTION 60-65% WITH NORMAL WALL MOTION 2. MODERATE DIASTOLIC DYSFUNCTION 3. SEVERELY DILATED RIGHT ATRIUM 4. SEVERE TRICUSPID REGURGITATION 5. MILD MITRAL REGURGITATION Stage III LEE ANN CKD V with Proteinuria -No NSAIDs -HD initiated -HBV negative -Dialysis placement pending Hyponatremia -HD as ordered HTN with CKD/ CHF complicated by episodes of hypotension -Continue Losartan BID -Reduce Hydralazine Diastolic CHF, A/C Severe TR -Continue Lasix -HD with UF DM II with Hyperglycemia and CKD -RISS Hypoalbuminemia -Continue Nepro Anemia in chronic illness Thrombocytopenia Hx Iron Deficiency -Monitor CBC CKD MBD -Continue Ergo and Calcitriol Hospitalist note reviewed
[2023-11-18] MEDS: LEVOTHYROXINE SOD 0.075 MG TAB PO SCH (07:00)
[2023-11-18] MEDS: INSULIN REGULAR (HUMAN) 100 UNIT/ML SQ SCH ×4 (07:30→21:46)
[2023-11-18] MEDS: IPRATROPIUM BROM 0.5MG/2.5ML NEB SCH ×2 (08:20→19:49)
[2023-11-18] MEDS: ASPIRIN EC 81 MG TAB PO SCH (08:42)
[2023-11-18] MEDS: LOSARTAN POTASSIUM 50 MG TABLET PO SCH ×2 (08:42→21:47)
[2023-11-18] MEDS: DOCUSATE NA 100 MG CAP PO SCH ×2 (08:42→21:47)
[2023-11-18] MEDS: HYDRALAZINE HCL 10 MG TABLET PO SCH ×2 (08:42→21:47)
[2023-11-18] MEDS: AMIODARONE HCL 200 MG TAB PO SCH (08:42)
[2023-11-18] MEDS: CALCITROL 0.25 MCG CAP PO SCH (08:42)
[2023-11-18] MEDS: MULTIVITAMINS,THERAPEUT 1 TAB PO SCH (08:42)
[2023-11-18] MEDS: CLOPIDOGREL 75 MG TABLET PO SCH (08:42)
[2023-11-18] MEDS: NEPRO SHAKE 237 ML CAN PO SCH ×2 (08:42→21:00)
[2023-11-18] MEDS: FUROSEMIDE 40 MG TABLET PO SCH ×2 (08:43→16:26)
--- NOTE | 2023-11-18 08:46 | P.PN ---
Subjective Date of Service: 11/18/23 Chief Complaint: acute on chronic kidney injury, pneumonia,bradycardia Family at bedside, reports constipation, requested a fleets enema ordered, no acute pain or fever. resting in bed, no acute distress, moderate generalized weakness, - Physical Exam General: Alert, In no apparent distress, Oriented x3 HEENT: Atraumatic, Normocephalic Neck: Supple, Resp: evn unlabored, crackles bases Cardiovascular: Normal pulses, Regular rate/rhythm, +1 LLE, SB rate 57 Gastrointestinal: Normal bowel sounds, Soft and benign Musculoskeletal: No clubbing, No swelling, Other (Moderate generalized weakness) Neurological: Normal speech, Normal strength at 5/5 x4 extr <Gisela Mayers - Last Filed: 11/18/23 15:06> Date of Service: 11/20/23 <Dilan Julian - Last Filed: 11/20/23 20:45> Review of Systems prer HPI <Gisela Mayers - Last Filed: 11/18/23 15:06> Physical Examination - Vital Signs Temperature: 97.7 F Blood Pressure: 130/62 Pulse: 66 Respirations: 18 Pulse Ox (%): 98 <Gisela Mayers - Last Filed: 11/18/23 15:06> Assessment And Plan - Plan Assessment plan Acute hypoxic respiratory failure secondary to pneumonia vs secondary FVO from acute renal failure improving Pulmonary consulted, HD initiated 11/10 CBC no leukocytosis, early left shift 86.7, (11/12 WBC 7.70, Left shift 82.1) IV azithromycin, ceftriaxone, nebs, O2 2 L keep sats greater than 90% troponin within normal limits, chest x-ray pleural effusion with bilateral pulmonary opacities, Pulmonary consult Eval for thoracentesis (started on lasix gtt) right-sided pleural effusion with diffuse bilateral changes likely secondary to fluid Fluid volume overload improved with hemodialysis Constipation Stool softeners, as needed fleets enema Leukocytosis, acute improved 11/10 WBCs 3.30->14.0 worsening 11/11 improved WBC 8.0, (1 WBC 7.70, Left shift 82.1) follow Blood cultures Hypotension resolved 11/11 VS stable 121/58 improving on midrodine Elevated BNP improving Card consulted, ECHO ordered, midodine added for hypotension Fluid bolus, trend vital signs, hold blood pressure meds Transferred to ICU if patient remains hypotensive Trend BNP, BNP 2800, BNP 3211 troponin within normal limits, BNP 2670, 2625 midrodine added, BP improved 115 systolic Echocardiogram COMMENTS: 1. NORMAL LEFT VENTRICULAR EJECTION FRACTION 60-65% WITH NORMAL WALL MOTION 2. MODERATE DIASTOLIC DYSFUNCTION 3. SEVERELY DILATED RIGHT ATRIUM 4. SEVERE TRICUSPID REGURGITATION 5. MILD MITRAL REGURGITATION Frequent falls Generalized weakness generalized weakness with reported falls over the last several days. CT of the head and C-spine no acute traumatic process, pelvics x-ray no bony fracture PT consulted, ambulate with assist dysphagia improved Speech eval for Dietitian consult added for calorie count nurse reported patient coughing with po intake today Swallow study FINDINGS: No evidence of laryngeal penetration or aspiration. Vallecular residues, cleared with additional swallows and subsequent thin liquid swallows. IMPRESSION: No evidence of laryngeal penetration or jaime aspiration. Acute Renal Failure improving hyponatremia Acute on chronic kidney injury, CKD stage V improving Reports some mild lower extremity edema. BUN 64, creatinine 3.40, chest x-ray pleural effusion with bilateral pulmonary opacities, BUN 89 creatinine 4.24, BUN 66/3.51 est GFR 12 Nephrology consult Nephrology Worsening kidney function, due to diastolic congestive heart failure, pulmonary hypertension, plan to continue with IV Lasix, labile hypotension, placed on lasix drip, no urine output, discussed HD with nephrology during this hospital admission, surgery consult to eval HD placement 11/10 Surgery consulted for hemodialysis catheter Patient treated with Ancef prior to procedure, consents obtained HD Started 11/11 BUN 89/4.24/GFR 10->51/3.06/GFR 15 11/12 tolerated HD, no complaints, Transaminitis AST 71/ALT 95/ALK PHOS 140 trend LFT mild hyponatremia improving na 130, 127 gentle IV fluids, NA 127->131 microcytic anemia-stable HH 8.9/ 7.4,HH 9.1/28.1 trend H&H, transfuse hemoglobin less than 7 insulin-dependent diabetes hypertension hypothyroidism Diet renal Full code DVT SCDs Disposition: [facility] for PT, OT, and outpatient hemodialysis Discharge Plan: Care Home - Code Status/Comfort Care Code Status: Full Code Critical Care: No Time Spent Managing PTS Care (In Minutes): 35 <Gisela Mayers - Last Filed: 11/18/23 15:06> - Plan Pt seen and examined. I agree with the note by the CARTON STAMPER. Continue abx for pneumonia <Dilan Julian - Last Filed: 11/20/23 20:45>
[2023-11-18 10:24] LABS: Potassium 4.4 mEq/L (3.5-5.1)
[2023-11-18] MEDS: POLYETHYL GLY 3350 17 GM/DOSE PO PRN (12:19)
[2023-11-18] MEDS ORDERED: FLEET ENEMA ADULT PR PRN (13:33)
[2023-11-18] MEDS ORDERED: DOCUSATE NA/SENNA CONC 1 TAB PO PRN (13:34)
[2023-11-18 15:42] LABS: Albumin 2.2 g/dL (3.4-5.0); Bilirubin Total 0.7 mg/dL (0.2-1.0); Potassium 4.1 mEq/L (3.5-5.1)
[2023-11-18] MEDS: ACETAMINOPHEN 500 MG TAB PO PRN (21:48)
[2023-11-18] MEDS ORDERED: ZOLPIDEM TARTRATE 5 MG TABLET PO PRN (23:16)
[2023-11-19 03:30] LABS: Hematocrit 26.4 % (36.0-45.0); MCV 81.5 fL (80-100); MPV 9.5 fL (7.6-11.3); Platelets 104 thou/uL (152-406); RBC Red Blood Cell Count 3.23 M/uL (3.86-4.86)
[2023-11-19 03:39] LABS: Magnesium 1.7 mg/dL (1.6-2.4)
[2023-11-19 04:41] LABS: Blood Morphology Comment NOT SEEN (NOT SEEN); Platelet Estimate ADEQ
[2023-11-19] MEDS: LEVOTHYROXINE SOD 0.075 MG TAB PO SCH (06:15)
[2023-11-19] MEDS: INSULIN REGULAR (HUMAN) 100 UNIT/ML SQ SCH ×4 (07:30→20:36)
[2023-11-19] MEDS ORDERED: MAGNESIUM SULFATE 1 gm IVPB 1 GM/100 ML BAG IV ONE (08:00)
--- NOTE | 2023-11-19 08:42 | P.PN ---
Subjective Date of Service: 11/19/23 Chief Complaint: acute on chronic kidney injury, pneumonia,bradycardia She reports receiving fleets enema, reports bowel movement, no reported of pain, shortness of breath, fever - Physical Exam General: Alert, In no apparent distress, Oriented x3 HEENT: Atraumatic, Normocephalic Neck: Supple, Resp: evn unlabored, Cardiovascular: Normal pulses, Regular rate/rhythm, Gastrointestinal: Normal bowel sounds, Soft and benign Musculoskeletal: No clubbing, No swelling, Other (Moderate generalized weakness) Neurological: Normal speech, Normal strength at 5/5 x4 extr Review of Systems per HPI Physical Examination - Vital Signs Temperature: 97.1 F Blood Pressure: 142/63 Pulse: 60 Respirations: 16 Pulse Ox (%): 91 Assessment And Plan - Plan Assessment plan Acute hypoxic respiratory failure secondary to pneumonia vs secondary FVO from acute renal failure improving Pulmonary consulted, HD initiated 11/10 CBC no leukocytosis, early left shift 86.7, (11/12 WBC 7.70, Left shift 82.1) IV azithromycin, ceftriaxone, nebs, O2 2 L keep sats greater than 90% troponin within normal limits, chest x-ray pleural effusion with bilateral pulmonary opacities, Pulmonary consult Eval for thoracentesis (started on lasix gtt) right-sided pleural effusion with diffuse bilateral changes likely secondary to fluid Fluid volume overload improved with hemodialysis Tolerating hemodialysis, no reported shortness of breath Constipation Stool softeners, as needed fleets enema Positive bowel movement today 11/19 Leukocytosis, acute improved 11/10 WBCs 3.30->14.0 worsening 11/11 improved WBC 8.0, (11/12 WBC 7.70, Left shift 82.1) follow Blood cultures Hypotension resolved 11/11 VS stable 121/58 improving on midrodine Elevated BNP improving Card consulted, ECHO ordered, midodine added for hypotension Fluid bolus, trend vital signs, hold blood pressure meds Transferred to ICU if patient remains hypotensive Trend BNP, BNP 2800, BNP 3211 troponin within normal limits, BNP 2670, 2625 midrodine added, BP improved 115 systolic Echocardiogram COMMENTS: 1. NORMAL LEFT VENTRICULAR EJECTION FRACTION 60-65% WITH NORMAL WALL MOTION 2. MODERATE DIASTOLIC DYSFUNCTION 3. SEVERELY DILATED RIGHT ATRIUM 4. SEVERE TRICUSPID REGURGITATION 5. MILD MITRAL REGURGITATION Frequent falls Generalized weakness generalized weakness with reported falls over the last several days. CT of the head and C-spine no acute traumatic process, pelvics x-ray no bony fracture PT consulted, ambulate with assist dysphagia improved Speech eval for Dietitian consult added for calorie count nurse reported patient coughing with po intake today Swallow study FINDINGS: No evidence of laryngeal penetration or aspiration. Vallecular residues, cleared with additional swallows and subsequent thin liquid swallows. IMPRESSION: No evidence of laryngeal penetration or jaime aspiration. Acute Renal Failure improving hyponatremia NA [address] Rodriguez patient is safe to discharge to [facility] follow-up with outpatient hemodialysis Acute on chronic kidney injury, CKD stage V improving Reports some mild lower extremity edema. BUN 64, creatinine 3.40, chest x-ray pleural effusion with bilateral pulmonary opacities, BUN 89 creatinine 4.24, BUN 66/3.51 est GFR 12 Nephrology consult Nephrology Worsening kidney function, due to diastolic congestive heart failure, pulmonary hypertension, plan to continue with IV Lasix, labile hypotension, placed on lasix drip, no urine output, discussed HD with nephrology during this hospital admission, surgery consult to eval HD placement 11/10 Surgery consulted for hemodialysis catheter Patient treated with Ancef prior to procedure, consents obtained HD Started 11/11 BUN 89/4.24/GFR 10->51/3.06/GFR 15 11/12 tolerated HD, no complaints, Transaminitis AST 71/ALT 95/ALK PHOS 140->ast 180ALT 103, alk phos 258 trend LFT, Plan to stop Cordarone due to transaminitis mild hyponatremia improving na 130, 127 gentle IV fluids, NA 127->131 microcytic anemia-stable HH 8.9/ 7.4,HH 9.1/28.1 trend H&H, transfuse hemoglobin less than 7 insulin-dependent diabetes hypertension hypothyroidism Diet renal Full code DVT SCDs Disposition: plan to discharge to [facility] facility for PT, OT, and outpatient hemodialysis Discharge Plan: Intermediate Critical Care: No Time Spent Managing PTS Care (In Minutes): 35
[2023-11-19] MEDS: NEPRO SHAKE 237 ML CAN PO SCH ×2 (09:00→20:39)
[2023-11-19] MEDS: HYDRALAZINE HCL 10 MG TABLET PO SCH ×2 (09:00→20:37)
[2023-11-19] MEDS: MULTIVITAMINS,THERAPEUT 1 TAB PO SCH (09:00)
[2023-11-19] MEDS: LOSARTAN POTASSIUM 50 MG TABLET PO SCH ×2 (09:53→20:37)
[2023-11-19] MEDS: CALCITROL 0.25 MCG CAP PO SCH (09:53)
[2023-11-19] MEDS: AMIODARONE HCL 200 MG TAB PO SCH (09:53)
[2023-11-19] MEDS: ASPIRIN EC 81 MG TAB PO SCH (09:54)
[2023-11-19] MEDS: CLOPIDOGREL 75 MG TABLET PO SCH (09:54)
[2023-11-19] MEDS: FUROSEMIDE 40 MG TABLET PO SCH ×2 (09:54→16:34)
[2023-11-19] MEDS: DOCUSATE NA 100 MG CAP PO SCH ×2 (09:54→20:37)
--- NOTE | 2023-11-19 12:27 | EKG ---
Test Date: 2023-11-17 Test Time: 01:29:38 Button Inspector: LUTHER MEASUREMENT RESULTS: Intervals: Rate: 83 [place]: QRSD: 104 QT: 460 QTc: 540 [place]: P: [place]: QRS: 159 T: 239 INTERPRETIVE STATEMENTS: Sinus rhythm Right axis deviation Incomplete right bundle branch block Possible Right ventricular hypertrophy ST & T wave abnormality, consider inferior ischemia Prolonged QT Abnormal ECG Compared to ECG 11/07/2023 15:29:40 ST (T wave) deviation now present Possible ischemia now present Prolonged QT interval now present Myocardial infarct finding no longer present Electronically Signed On 11-19-23 12:21:22 [employer] DEAN by Jose C Kruse
--- NOTE | 2023-11-19 13:03 | P.DS ---
Admission Date: 11/07/23 Discharge Date: 11/20/23 Disposition: TRANSFER TO [facility] Discharge Condition: FAIR Reason for Admission: acute on chronic kidney injury, pneumonia,bradycardia Brief History of Present Illness: 83-year-old female with a past medical history of insulin-dependent diabetes, hypertension, hypothyroidism CKD stage V, presents to the emergency room with generalized weakness with reported falls over the last several days. Reports some mild lower extremity edema. She was admitted for pneumonia, weakness, frequent falls, acute on chronic kidney injury, vital signs upon admission ER evaluationBP 162 / 70; Pulse 47; Resp 17; Temp 96.9; Pulse Ox 97% ; Laboratory evaluation elevated BNP 2800, mild hyponatremia 130 CBC no leukocytosis, early left shift 86.7, microcytic anemia 8.980 7.4, BUN 64, creatinine 3.40, troponin within normal limits, chest x-ray pleural effusion with bilateral pulmonary opacities, CT of the head and C-spine no acute traumatic process, pelvics x-ray no bony fracture, UA pending - Physical Exam General: Alert, In no apparent distress, Oriented x3 HEENT: Atraumatic, Normocephalic Neck: Supple, Resp: evn unlabored, Cardiovascular: Normal pulses, Regular rate/rhythm, Gastrointestinal: Normal bowel sounds, Soft and benign Musculoskeletal: Skin: Bruising bilateral upper extremities from lab draws, Other (Moderate generalized weakness) Neurological: Normal speech, Normal strength at 5/5 x4 extr the Hospital Course: Mrs. Welch and treated for acute on chronic heart failure, hypoxia, fluid volume overload, acute renal failure, hyponatremia. She was followed by with nephrology. Hemodialysis was initiated.. She is stable to discharge plan to discharge for retirement facility for rehab. Plan to continue outpatient hemodialysis with nephrology. She can resume cardiac, renal diet, resume home antihypertensives, Assessment Acute on chronic diastolic heart failure heart failure, mitral regurgitation, tricuspid regurgitation Fluid volume overload to be treated with hemodialysis. Patient was noted to have elevated liver enzymes Patient needs to follow-up with cardiology, amiodarone was stopped due to hepatotoxicity Plan to discharge to [place] with retirement for retirement facility Follow-up with cardiology in 1 to 2 weeks Hold amiodarone due to elevated liver enzymes monitor blood pressure, hold cardiac meds if systolic less than 100 Resume home insulin, resume home Accu-Cheks, diabetic diet Diet: ADA, low sodium Activity: Fall precautions DME:None Date Ordered: [facility] facility [facility] of Company[facility] [employer] Services Needed: None Date or Referral: IMMUNIZATION Influenza Vaccine Indicated: Influenza Vaccine Given: Date Given: Pneumonia Vaccine Indicated: Pneumonia Vaccine Given: Date Given: DC IV and DC SNF -Follow-up with PCP in 1 to 2 weeks -Follow-up with Cardiology in 1 to 2 weeks -Follow-up with Nephrology for hemodialysis -Please call Dr. Blakely at [phone] if any questions regarding hospital stay -Please call nursing station at [phone] if any nursing or medication questions -Return to the emergency room if symptoms worse Vital Signs/Physical Exam: Temp Pulse Resp BP Pulse Ox 97.1 F 60 16 142/63 H 91 11/19/23 13:02 11/19/23 13:02 11/19/23 13:02 11/19/23 13:02 11/19/23 13:02 Laboratory Data at Discharge: WBC 8.20 thou/uL (4.3-10.9) 11/19/23 03:00 Hgb 8.7 g/dL (12.0-15.0) L 11/19/23 03:00 Hct 26.4 % (36.0-45.0) L 11/19/23 03:00 Plt Count 104 thou/uL (152-406) L 11/19/23 03:00 Sodium 126 mEq/L (136-145) L 11/19/23 03:00 Potassium 4.0 mEq/L (3.5-5.1) 11/19/23 03:00 BUN 46 mg/dL (7-18) H 11/19/23 03:00 Creatinine 2.59 mg/dL (0.55-1.02) H 11/19/23 03:00 Glucose 155 mg/dL (74-106) H 11/19/23 03:00 Phosphorus 4.1 mg/dL (2.5-4.9) 11/16/23 03:22 Magnesium 1.7 mg/dL (1.6-2.4) 11/19/23 03:00 Total Bilirubin 0.7 mg/dL (0.2-1.0) 11/18/23 14:52 AST 180 U/L (15-37) H 11/18/23 14:52 ALT 103 U/L (13-56) H 11/18/23 14:52 Alkaline Phosphatase 258 U/L (45-117) H 11/18/23 14:52 Home Medications: Aspirin [Aspirin EC 81 MG] 81 mg PO DAILY 12/14/21 Cholecalciferol (Vitamin D3) [Vitamin D 1000 Iu Tab*] 1,000 unit PO DAILY 12/14/21 Clopidogrel Bisulfate [Plavix] 75 mg PO DAILY 12/14/21 Memantine HCl 5 mg PO DAILY 12/14/21 Montelukast [Singulair*] 10 mg PO DAILY 12/14/21 Insulin Degludec [Tresiba Flextouch U-100] 28 unit SQ DAILY 03/28/23 Mecobalamin [B12 Active] 1,000 mcg PO DAILY 03/28/23 Hydralazine [Apresoline*] 10 mg PO BID 06/25/23 Levothyroxine Sodium 75 mcg PO DAILY 06/25/23 Calcitrol [Rocaltrol*] 0.5 mcg PO DAILY cap 11/19/23 Furosemide [Lasix*] 40 mg PO BIDL tab 11/19/23 Heparin [Heparin 1,000 units/mL *] 2,000 unit IV EVERY HD PRN vial 11/19/23 Hydralazine [Apresoline*] 10 mg PO BID tab 11/19/23 Insulin -Regular Human [Novolin -R*] See Protocol SQ ACHS ml 11/19/23 Losartan Potassium [Cozaar*] 25 mg PO BID 11/19/23 Mannitol 25% [Mannitol*] 25 gm IV EVERY HD PRN vial 11/19/23 Nepro Shake [Nepro*] 237 ml PO BID can 11/19/23 Polyethyl Gly 3350 [Glycolax*] 17 gm PO DAILY PRN udbot 11/19/23 Vitamin D [Drisdol*] 50,000 unit PO Q7D@0900 cap 11/19/23 Zolpidem Tartrate [Ambien*] 5 mg PO BEDTIME PRN PRN 11/19/23 Physician Discharge Instructions: -DC IV and DC home -Follow-up with PCP in 1 to 2 weeks -Follow-up with Cardiology in 1 to 2 weeks -Follow-up with Nephrology for hemodialysis -Please call Dr. Blakely at [phone] if any questions regarding hospital stay -Please call nursing station at [phone] if any nursing or medication questions -Return to the emergency room if symptoms worsen Followup: Kapil Servin MD [Primary Care Provider] - Time spent managing pt's care (in minutes): 45
--- NOTE | 2023-11-19 20:19 | P.PN ---
Date of Service: 11/19/23 Vital Signs Temp Pulse Resp BP Pulse Ox 97.1 F 60 16 142/63 H 91 11/19/23 18:32 11/19/23 18:32 11/19/23 18:32 11/19/23 18:32 11/19/23 18:32 Medications Acetaminophen (Acetaminophen 500 Mg Tab) 500 mg PO Q4HP PRN PRN Reason: Pain scale 2-4 (Mild) Last Admin: 11/18/23 21:48 Dose: 500 mg Aspirin (Aspirin Ec 81 Mg Tab) 81 mg PO DAILY [facility] Last Admin: 11/19/23 09:54 Dose: 81 mg Calcitriol (Calcitrol 0.25 Mcg Cap) 0.5 mcg PO DAILY [facility] Last Admin: 11/19/23 09:53 Dose: 0.5 mcg Clopidogrel Bisulfate (Clopidogrel 75 Mg Tablet) 75 mg PO DAILY [facility] Last Admin: 11/19/23 09:54 Dose: 75 mg Docusate Sodium (Docusate Na 100 Mg Cap) 100 mg PO BID [facility] Last Admin: 11/19/23 09:54 Dose: 100 mg Enteral Nutritional Formula (Nepro Shake 237 Ml Can) 237 ml PO BID [facility] Last Admin: 11/19/23 09:00 Dose: 237 ml Ergocalciferol (Drisdol (Vitamin D=Ergocalciferol) 56361 Unit Cap) 50,000 unit PO Q7D@0900 [facility] Last Admin: 11/17/23 08:55 Dose: 50,000 unit Furosemide (Furosemide 40 Mg Tablet) 40 mg PO BIDL [facility] Last Admin: 11/19/23 16:34 Dose: 40 mg Glucagon (Glucagon 1 Mg/Vial) 1 mg IM 1X PRN; Protocol PRN Reason: HYPOGLYCEMIA Heparin Sodium (Porcine) (Heparin 1,000 Unit/Ml Vial) 6,000 unit IV EVERY HD PRN PRN Reason: FOR DIALYSIS CATHETER CARE Last Admin: 11/19/23 14:02 Dose: 6,000 unit Heparin Sodium (Porcine) (Heparin 1,000 Unit/Ml Vial) 2,000 unit IV EVERY HD PRN PRN Reason: Prevent HD System Clotting. Last Admin: 11/19/23 10:57 Dose: 2,000 unit Hydralazine HCl (Hydralazine Hcl 20 Mg/Ml Vial) 10 mg IV Q4HP PRN PRN Reason: Goal to achieve SBP in comment Hydralazine HCl (Hydralazine Hcl 10 Mg Tablet) 10 mg PO BID [facility] Last Admin: 11/19/23 09:00 Dose: 10 mg Dextrose (Dextrose 10% Water Iv Soln.) 125 mls @ 0 mls/hr IV PRN PRN; Protocol PRN Reason: HYPOGLYCEMIA Last Admin: 11/10/23 06:51 Dose: 125 mls Insulin Human Regular (Insulin Regular (Human) 100 Unit/Ml) 0 unit SQ ACHS [facility]; Protocol Last Admin: 11/19/23 14:42 Dose: Not Given Levothyroxine Sodium (Levothyroxine Sod 0.075 Mg Tab) 0.075 mg PO DAILYAC [facility] Last Admin: 11/19/23 06:15 Dose: 0.075 mg Losartan Potassium (Losartan Potassium 50 Mg Tablet) 25 mg PO BID [facility] Last Admin: 11/19/23 09:53 Dose: 25 mg Mannitol (Mannitol 25% 12.5 Gm/50 Ml Vial) 25 gm IV EVERY HD PRN PRN Reason: DIALYSIS Last Admin: 11/14/23 11:30 Dose: 25 gm Ondansetron HCl (Ondansetron 4 Mg/2 Ml Vial) 4 mg IV Q6HP PRN PRN Reason: NAUSEA / VOMITING Last Admin: 11/10/23 15:52 Dose: 4 mg Polyethylene Glycol (Polyethyl Gly 3350 17 Gm/Dose) 17 gm PO DAILY PRN PRN Reason: CONSTIPATION Last Admin: 11/18/23 12:19 Dose: 17 gm Senna/Docusate Sodium (Docusate Na/Senna Conc 1 Tab) 2 tab PO BEDTIME PRN PRN Reason: CONSTIPATION - 1st line Sodium Biphosphate/Sodium Phosphate (Fleet Enema Adult) 133 ml VT DAILY PRN PRN Reason: CONSTIPATION - 2ND LINE Vitamin B Complex/Vit C/Folic Acid (Multivitamins,Therapeut 1 Tab) 1 tab PO DAILY [facility] Last Admin: 11/19/23 09:00 Dose: 1 tab Zolpidem Tartrate (Zolpidem Tartrate 5 Mg Tablet) 5 mg PO BEDTIME PRN PRN PRN Reason: INSOMNIA Last Admin: 11/18/23 23:46 Dose: 5 mg Assessment/ Plan: Nephrology No dyspnea No chest pain Feeling better. Worked with PT today No acute events overnight Vitals, medications, blood work and imaging reviewed in the chart. NAD. NCAT. MMM. Neck supple. Normal respiratory effort. RRR. Abd ND. No C/C. LE Edema trace. No rash. AAO. Normal speech. LEFT VENTRICULAR WALL MOTION: NORMAL DOPPLER/COLOR FLOW: SEE BELOW COMMENTS: 1. NORMAL LEFT VENTRICULAR EJECTION FRACTION 60-65% WITH NORMAL WALL MOTION 2. MODERATE DIASTOLIC DYSFUNCTION 3. SEVERELY DILATED RIGHT ATRIUM 4. SEVERE TRICUSPID REGURGITATION 5. MILD MITRAL REGURGITATION Stage III LEE ANN CKD V with Proteinuria -No NSAIDs -HD initiated -HBV negative -Dialysis placement pending -Seen and examined on HD today Hyponatremia -HD as ordered HTN with CKD/ CHF complicated by episodes of hypotension -Continue Losartan BID -Reduce Hydralazine Diastolic CHF, A/C Severe TR -Continue Lasix -HD with UF DM II with Hyperglycemia and CKD -RISS Hypoalbuminemia -Continue Nepro Anemia in chronic illness Thrombocytopenia Hx Iron Deficiency -Monitor CBC CKD MBD -Continue Ergo and Calcitriol Hospitalist note reviewed Case reviewed with hospitalist team
[2023-11-20 04:28] LABS: Hematocrit 26.6 % (36.0-45.0); MCV 82.9 fL (80-100); MPV 9.4 fL (7.6-11.3); Platelets 116 thou/uL (152-406); RBC Red Blood Cell Count 3.21 M/uL (3.86-4.86)
[2023-11-20 04:40] LABS: Magnesium 1.8 mg/dL (1.6-2.4); Potassium 3.7 mEq/L (3.5-5.1)
[2023-11-20] MEDS ORDERED: MAGNESIUM SULFATE 1 gm IVPB 1 GM/100 ML BAG IV ONE (05:00)
[2023-11-20 05:17] LABS: Blood Morphology Comment NOT SEEN (NOT SEEN); Platelet Estimate ADEQ
[2023-11-20] MEDS: LEVOTHYROXINE SOD 0.075 MG TAB PO SCH (05:26)
--- NOTE | 2023-11-20 07:17 | P.PN ---
Subjective Date of Service: 11/20/23 Chief Complaint: acute on chronic kidney injury, pneumonia,bradycardia feeling well, no complaints overnight - Physical Exam General: Alert, In no apparent distress, Oriented x3 HEENT: Atraumatic, Normocephalic Neck: Supple, Resp: evn unlabored, Cardiovascular: Normal pulses, Regular rate/rhythm, Gastrointestinal: Normal bowel sounds, Soft and benign Musculoskeletal: No clubbing, No swelling, Other (Moderate generalized weakness) Skin brusing BUE from lab draws Neurological: Normal speech, Review of Systems per HPI Physical Examination - Vital Signs Temperature: 97.8 F Blood Pressure: 118/56 Pulse: 66 Respirations: 17 Pulse Ox (%): 93 Assessment And Plan - Plan Assessment plan Acute hypoxic respiratory failure secondary to pneumonia vs secondary FVO from acute renal failure improving Pulmonary consulted, HD initiated 11/10 CBC no leukocytosis, early left shift 86.7, (11/12 WBC 7.70, Left shift 82.1) IV azithromycin, ceftriaxone, nebs, O2 2 L keep sats greater than 90% troponin within normal limits, chest x-ray pleural effusion with bilateral pulmonary opacities, Pulmonary consult Eval for thoracentesis (started on lasix gtt) right-sided pleural effusion with diffuse bilateral changes likely secondary to fluid Fluid volume overload improved with hemodialysis Tolerating hemodialysis, no reported shortness of breath Constipation resolved Stool softeners, as needed fleets enema Positive bowel movement today 11/19 Leukocytosis, resolved 11/10 WBCs 3.30->14.0 worsening 11/11 improved WBC 8.0, (11/12 WBC 7.70, Left shift 82.1) follow Blood cultures Hypotension resolved 11/11 VS stable 121/58 improving on midrodine Elevated BNP improving Card consulted, ECHO ordered, midodine added for hypotension Fluid bolus, trend vital signs, hold blood pressure meds Transferred to ICU if patient remains hypotensive Trend BNP, BNP 2800, BNP 3211 troponin within normal limits, BNP 2670, 2625 midrodine added, BP improved 115 systolic Echocardiogram COMMENTS: 1. NORMAL LEFT VENTRICULAR EJECTION FRACTION 60-65% WITH NORMAL WALL MOTION 2. MODERATE DIASTOLIC DYSFUNCTION 3. SEVERELY DILATED RIGHT ATRIUM 4. SEVERE TRICUSPID REGURGITATION 5. MILD MITRAL REGURGITATION Frequent falls Generalized weakness generalized weakness with reported falls over the last several days. CT of the head and C-spine no acute traumatic process, pelvics x-ray no bony fracture PT consulted, ambulate with assist dysphagia improved Speech eval for Dietitian consult added for calorie count nurse reported patient coughing with po intake today Swallow study FINDINGS: No evidence of laryngeal penetration or aspiration. Vallecular residues, cleared with additional swallows and subsequent thin liquid swallows. IMPRESSION: No evidence of laryngeal penetration or jaime aspiration. Acute Renal Failure improving hyponatremia improving NA 126->[address] Rodriguez patient is safe to discharge to nursing home follow-up with outpatient hemodialysis Acute on chronic kidney injury, CKD stage V improving Reports some mild lower extremity edema. BUN 64, creatinine 3.40, chest x-ray pleural effusion with bilateral pulmonary opacities, BUN 89 creatinine 4.24, BUN 66/3.51 est GFR 12 Nephrology consult Nephrology Worsening kidney function, due to diastolic congestive heart failure, pulmonary hypertension, plan to continue with IV Lasix, labile hypotension, placed on lasix drip, no urine output, discussed HD with nephrology during this hospital admission, surgery consult to eval HD placement 11/10 Surgery consulted for hemodialysis catheter Patient treated with Ancef prior to procedure, consents obtained HD Started 11/11 BUN 89/4.24/GFR 10->51/3.06/GFR 15 11/12 tolerated HD, no complaints, Transaminitis AST 71/ALT 95/ALK PHOS 140->ast 180ALT 103, alk phos 258 trend LFT, Plan to stop Cordarone due to transaminitis mild hyponatremia improving na 130, 127 gentle IV fluids, NA 127->131 microcytic anemia-stable HH 8.9/ 7.4,HH 9.1/28.1 trend H&H, transfuse hemoglobin less than 7 insulin-dependent diabetes hypertension hypothyroidism Diet renal Full code DVT SCDs Disposition: plan to discharge to nursing home facility for PT, OT, and outpatient hemodialysis Discharge Plan: Detention - Code Status/Comfort Care Code Status: Full Code Physician Review: Patient Assessed, Agree with Above Assessment and Plan Critical Care: No Time Spent Managing PTS Care (In Minutes): 35
[2023-11-20] MEDS: HYDRALAZINE HCL 10 MG TABLET PO SCH (08:44)
[2023-11-20] MEDS: MULTIVITAMINS,THERAPEUT 1 TAB PO SCH (08:44)
[2023-11-20] MEDS: DOCUSATE NA 100 MG CAP PO SCH (08:44)
[2023-11-20] MEDS: CLOPIDOGREL 75 MG TABLET PO SCH (08:44)
[2023-11-20] MEDS: ASPIRIN EC 81 MG TAB PO SCH (08:44)
[2023-11-20] MEDS: FUROSEMIDE 40 MG TABLET PO SCH ×2 (08:44→16:25)
[2023-11-20] MEDS: LOSARTAN POTASSIUM 50 MG TABLET PO SCH (08:44)
[2023-11-20] MEDS: NEPRO SHAKE 237 ML CAN PO SCH (08:48)
[2023-11-20] MEDS: CALCITROL 0.25 MCG CAP PO SCH (08:48)
[2023-11-20] MEDS: INSULIN REGULAR (HUMAN) 100 UNIT/ML SQ SCH ×3 (08:49→17:45)
[2023-11-20 08:52] VITALS: O2SAT 98
[2023-11-20] MEDS ORDERED: POTASSIUM CL SA 10 MEQ TAB PO ONE (09:00)
--- NOTE | 2023-11-20 19:34 | P.PN ---
Date of Service: 11/20/23 Vital Signs Temp Pulse Resp BP Pulse Ox 97.1 F 66 18 165/75 H 93 11/20/23 12:00 11/20/23 17:52 11/20/23 17:52 11/20/23 17:52 11/20/23 12:00 Assessment/ Plan: Nephrology No dyspnea No chest pain Doing well No acute events overnight Vitals, medications, blood work and imaging reviewed in the chart. NAD. NCAT. MMM. Neck supple. Normal respiratory effort. RRR. Abd ND. No C/C. LE Edema trace. No rash. AAO. Normal speech. LEFT VENTRICULAR WALL MOTION: NORMAL DOPPLER/COLOR FLOW: SEE BELOW COMMENTS: 1. NORMAL LEFT VENTRICULAR EJECTION FRACTION 60-65% WITH NORMAL WALL MOTION 2. MODERATE DIASTOLIC DYSFUNCTION 3. SEVERELY DILATED RIGHT ATRIUM 4. SEVERE TRICUSPID REGURGITATION 5. MILD MITRAL REGURGITATION Stage III LEE ANN CKD V with Proteinuria -No NSAIDs -HD initiated -HBV negative -Dialysis placement pending Hyponatremia -HD as ordered HTN with CKD/ CHF complicated by episodes of hypotension -Continue Losartan BID -Reduce Hydralazine Diastolic CHF, A/C Severe TR -Continue Lasix -HD with UF DM II with Hyperglycemia and CKD -RISS Hypoalbuminemia -Continue Nepro Anemia in chronic illness Thrombocytopenia Hx Iron Deficiency -Monitor CBC CKD MBD -Continue Ergo and Calcitriol Hospitalist note reviewed Case reviewed with hospitalist team
[2023-11-25 07:23] VITALS: BP 118/56; TEMP 97.8
== END 2023-11-20 17:51 | DRG 673 ==
LOC: ER 14:46 → ERHOLD 16:47 → 2ND 18:31
PROVIDERS: ADMIT Hospitalist; ATTEND Hospitalist
PROC: B543ZZA Ultrasonography of Right Jugular Veins, Guidance (ICD-10-PCS; 2023-11-10)
PROC: B5181ZA Fluoroscopy of Superior Vena Cava using Low Osmolar Contrast, Guidance (ICD-10-PCS; 2023-11-10)
PROC: 5A1D70Z Performance of Urinary Filtration, Intermittent, Less than 6 Hours Per Day (ICD-10-PCS; 2023-11-10)
PROC: 0JH63XZ Insertion of Tunneled Vascular Access Device into Chest Subcutaneous Tissue and Fascia, Percutaneous Approach (ICD-10-PCS; principal; 2023-11-10 13:15)
PROC: 5A1D70Z Performance of Urinary Filtration, Intermittent, Less than 6 Hours Per Day (ICD-10-PCS; 2023-11-14)
PROC: 5A1D70Z Performance of Urinary Filtration, Intermittent, Less than 6 Hours Per Day (ICD-10-PCS; 2023-11-16)
PROC: 5A1D70Z Performance of Urinary Filtration, Intermittent, Less than 6 Hours Per Day (ICD-10-PCS; 2023-11-19)
DX: N17.9 Acute kidney failure, unspecified (principal); I50.33 Acute on chronic diastolic (congestive) heart failure; J96.01 Acute respiratory failure with hypoxia; J15.9 Unspecified bacterial pneumonia; E44.0 Moderate protein-calorie malnutrition; E87.1 Hypo-osmolality and hyponatremia; I13.2 Hypertensive heart and chronic kidney disease with heart failure and with stage 5 chronic kidney disease, or end stage renal disease; J44.0 Chronic obstructive pulmonary disease with (acute) lower respiratory infection; J44.1 Chronic obstructive pulmonary disease with (acute) exacerbation; I27.20 Pulmonary hypertension, unspecified; D69.6 Thrombocytopenia, unspecified; D63.8 Anemia in other chronic diseases classified elsewhere; E11.22 Type 2 diabetes mellitus with diabetic chronic kidney disease; N18.6 End stage renal disease; I48.91 Unspecified atrial fibrillation; Z79.4 Long term (current) use of insulin; E11.65 Type 2 diabetes mellitus with hyperglycemia; L89.312 Pressure ulcer of right buttock, stage 2; E03.9 Hypothyroidism, unspecified; I95.9 Hypotension, unspecified; D50.9 Iron deficiency anemia, unspecified; I15.0 Renovascular hypertension; R53.1 Weakness; Z83.3 Family history of diabetes mellitus; R13.10 Dysphagia, unspecified; R29.6 Repeated falls
CPT/HCPCS: 36415; 70450; 71045; 71250; 72125; 72170; 74230; 76000; 80048; 80053; 82533; 82947; 83735; 83880; 84100; 84145; 84439; 84443; 84484; 85025; 86705; 86706; 87040; 87340; 90935; 92610; 92611; 93005; 93306; 94010; 94640; 94760; 97110; 97116; 97161; 97530; 99285; C1752; J0360; J0690; J0696; J1644; J1815; J1940; J2001; J2150; J2250; J2405; J2543; J2704; J2765; J2930; J3010; J3475; J7030; J7040; J7050; J7605; J7644; P9047; Q4081